=== PATIENT | female | born 1970 | race Two or more races ===

== ENCOUNTER 2019-12-13 13:04 | Outpatient (RCR) | payer MEDICAID, SELFPAY | END 2020-03-06 10:10 | disposition home or self-care (01) | LOC: HO.OT 13:04 | PROVIDERS: Visit Provider Physician Assistant | DX: M65.341 Trigger finger, right ring finger (principal) | CPT/HCPCS: 97110 ==

== ENCOUNTER 2020-02-04 11:30 | Outpatient (REF) | payer MEDICAID, SELFPAY ==
--- NOTE | 2020-02-04 11:30 | XR_ITS ---
EXAMINATION: XR HAND, RIGHT CLINICAL INFORMATION: Pain COMPARISON: Previous exam April 2014 TECHNIQUE: PA, lateral, and oblique views of the right hand. FINDINGS: The bones and soft tissues are normal. No fracture. Alignment is anatomic. Joint spaces are maintained. No erosions or soft tissue calcifications. XR/XR hand RT min 3V IMPRESSION: Normal right hand.
== END 2020-02-04 11:31 | disposition home or self-care (01) ==
LOC: HO.HOSX 11:30
PROVIDERS: PCP Family Medicine; Referring Provider Family Medicine; Visit Provider Physician Assistant
DX: M79.641 Pain in right hand (principal); M65.341 Trigger finger, right ring finger
CPT/HCPCS: 73130; 99212

== ENCOUNTER 2020-05-21 12:06 | Outpatient (REF) | payer MEDICAID, SELFPAY ==
--- NOTE | ~2020-05-21 | XR_ITS ---
EXAMINATION: XR THORACOLUMBAR SPINE CLINICAL INFORMATION: Dorsal pain COMPARISON: Chest radiographs 08/04/2017. CT abdomen and pelvis noncontrast 12/01/2019 TECHNIQUE: Frontal and 2 lateral views of the thoracic spine are obtained for 3 views. FINDINGS: There are 12 rib-bearing thoracic vertebrae with normal thoracic kyphosis. Again, there is levocurvature thoracic spine at level of a T10 butterfly vertebrae similar to CT 2020. There are bridging right lateral osteophytes at this level and lesser anterior bridging osteophytes. There is no interval new thoracic vertebral compression or spondylolisthesis. No destructive process or paraspinal mass. 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
--- NOTE | ~2020-05-21 | XR_ITS ---
EXAMINATION: XR LUMBOSACRAL SPINE CLINICAL INFORMATION: Pain COMPARISON: Thoracic spine 05/21/2020, CT abdomen and pelvis noncontrast 12/01/2019 TECHNIQUE: Three views of the lumbosacral spine. FINDINGS: There is normal lumbar segmentation with 5 nonrib-bearing lumbar vertebrae of normal height and normal lumbar lordosis. There is mild borderline dextrocurvature rotatory curvature upper lumbar spine. There is no lumbar vertebral compression, spondylolisthesis, destructive process, or focal disc narrowing. The SI joints and visualized sacrum are unremarkable. XR/XR lumbar spine 2-3V IMPRESSION: 1. Mild dextrocurvature upper lumbar spine. Normal lumbar lordosis. 2. No lumbar vertebral compression, spondylolisthesis, or disc narrowing.
== END 2020-05-21 12:07 | disposition home or self-care (01) ==
LOC: HO.XRAY 12:06
PROVIDERS: PCP Family Medicine; Visit Provider General Practice
DX: M54.9 Dorsalgia, unspecified (principal)
CPT/HCPCS: 72070; 72100

== ENCOUNTER → 2020-05-29 10:44 | Outpatient (BNVA) | payer MEDICAID, SELFPAY | PROVIDERS: PCP Family Medicine; Visit Provider Physician Assistant | DX: M65.30 Trigger finger, unspecified finger (principal) | CPT/HCPCS: 99212 ==

== ENCOUNTER 2020-06-22 10:31 | Emergency (ER) | payer MEDICAID, SELFPAY ==
[2020-06-22 11:22] VITALS: BP 124/70; PULSE 101; RESP 18; TEMP 37.2; O2SAT 98; BMI 35.6
[2020-06-22] MEDS: Ibuprofen 600 MG TABLET PO (14:29)
[2020-06-22] MEDS: traMADoL HCL 50 MG TABLET PO (14:29)
--- NOTE | 2020-06-22 14:31 | ED_ITS ---
HPI - General Adult General Chief complaint: Upper Respiratory Symptoms Stated complaint: dental pain Time Seen by Provider: 06/22/20 13:40 Source: patient Mode of arrival: ambulatory Limitations: no limitations History of Present Illness HPI narrative: 50 y/o female with history of HTN, HLD, DM, GERD, anxiety/depre ssion presenting with 3 days of right sided lower dental pain associated with sore throat, painful eating, ear pain and subjective fevers at home. She has not been to a dentist in a long time. She states it hurts to chew and open her jaw all the way. She reports the pain in her ear and head is worse when she lays down or bends over. She denies facial swelling or neck pain. No difficulty swallowing but admits to difficulty chewing. MD complaint: dental pain Onset (ago): day(s) (3) Location: head and face Radiation: other (to ear and head) Severity: severe Severity scale (1-10): 8 Quality: aching, sharp and constant Pain Consistency: constant Relieving factors: medication Exacerbating factors: other (bending down) Associated symptoms: fever/chills, headaches and loss of appetite Treatments prior to arrival: none Related Data Home Medications Medication Instructions Recorded Confirmed amlodipine 2.5 mg tablet 2.5 mg PO DAILY 02/04/20 aspirin 325 mg tablet 325 mg PO DAILY 02/04/20 baclofen 5 mg tablet 5 mg PO BEDTIME 02/04/20 buspirone 5 mg tablet 5 mg PO BID 02/04/20 diphenhydramine HCl 25 mg capsule 25 mg PO BEDTIME 02/04/20 gabapentin 300 mg capsule 300 mg PO BEDTIME 02/04/20 insulin lispro 100 unit/mL 5.5 unit SUBCUT BEDTIME 02/04/20 subcutaneous half-unit pen omeprazole 20 mg capsule,delayed 20 mg PO DAILY 02/04/20 release pravastatin 10 mg tablet 10 mg PO BEDTIME 02/04/20 Previous Rx's Medication Instructions Recorded ibuprofen 800 mg tablet 800 mg PO Q8H PRN 30 Days #90 tab 02/04/20 clindamycin HCl 300 mg PO Q6H #28 cap 06/22/20 ibuprofen 600 mg PO Q8H PRN #20 tab 06/22/20 tramadol 50 mg PO Q8H PRN #6 tab 06/22/20 Allergies Allergy/AdvReac Type Severity Reaction Status Date / Time enalapril [ENALAPRIL] Allergy Unknown UNK Verified 02/04/20 11:14 hydrochlorothiazide Allergy Unknown UNK Verified 02/04/20 11:14 [HYDROCHLOROTHIAZIDE] lisinopril [LISINOPRIL] Allergy Unknown HIVES,THROAT Verified 02/04/20 11:14 SWELLING metoprolol [METOPROLOL] Allergy Unknown UNK Verified 02/04/20 11:14 metronidazole [METRONIDAZOLE] Allergy Unknown UNK Verified 02/04/20 11:14 Enalapril Maleate Allergy Unknown hives Uncoded 10/31/19 00:00 Hydrochlorothiazide Allergy Unknown palpitation Uncoded 10/31/19 00:00 Metoprolol Succinate Allergy Unknown tacycardia Uncoded 10/31/19 00:00 Oxycodone HCl Allergy Unknown vomiting Uncoded 10/31/19 00:00 Review of Systems Review of Systems: Constitutional: + Fever, +Chills ENT/Mouth: + sore throat, No Rhinorrhea, No Swallowing Difficulty, +Dental pain Eyes: No Eye Pain, No Swelling, No Redness Cardiovascular: No Chest Pain, No SOB Respiratory: No Cough, No Sputum Gastrointestinal: No Nausea, No Vomiting, No Diarrhea, No abdominal Pain Musculoskeletal: No joint pain, No Myalgias Heme/Lymph: No Lymphadenopathy PMFSH Past Medical History Attestation statement: The following information was validated with the patient. Medical History Anxiety Depression Diabetes GERD (gastroesophageal reflux disease) HTN (hypertension) Hyperlipidemia Surgical History History of hand surgery Social History Social History Alcohol intake: never Smoking Status: Never smoker Advance Directives: No Current occupational status: unemployed Current occupation: right handed Physical Exam Vital Signs: Vital Signs: Last Vital Signs Temp 98.7 F 06/22/20 15:25 Pulse 74 06/22/20 15:25 Resp 16 06/22/20 15:25 BP 157/79 H 06/22/20 15:25 Pulse Ox 97 06/22/20 15:25 Body Mass Index 35.6 Const: General: cooperative and tired appearing Nutritional Appearance: overweight Orientation/consciousness: patient oriented x3 Limitations: no limitations HENMT: Head: Yes normal to inspection, Yes normocephalic and Yes atraumatic Ears: hearing grossly normal bilaterally, TM normal on the right and TM abnormal bulging on the left and with fluid behind the TM on the left General nose exam: Normal external nose present Face and sinus: Yes Facial tenderness on exam of face and sinuses (at right lower mandible, no erythema, edema or flutance. ) Mouth: lip normal, tongue normal, Normal salivary glands and ducts present, moist mucous membranes and restricted motion Teeth and gingiva: abnormal tooth and associated gingiva lower right third molar tender, with associated gingival edema and with associated gingival fluctuance Teeth image: 1. tenderness, edema, erythema, mild flutuance however patient not cooperative with complete examination due to pain Throat: Yes uvula midline and Yes abnormal tonsil (mild edema and erythema) Eyes: General: appearance normal, both eyes and all related structures Neck: Neck: Yes normal visual inspection, Yes no lymphadenopathy, Yes trachea midline and Yes supple Chest: Chest palpation & inspection: normal inspection of the chest Resp: Effort & Inspection: normal respiratory effort and able to speak in complete sentences Skin: General skin exam: no rashes or lesions noted Neuro: General: patient oriented x3 Extrem: General: Yes normal to inspection Psych: Appearance: grossly normal Course Course Course Narrative: 50 y/o female presenting with right lower dental pain radiating to right ear and head. Exam is consistent with early dental abscess. Declining complete examination and declining offer of possible drainge. No evidence of infection into the neck. No trismus. She would like antibiotics and pain medications until she can call a dentist tomorrow. Given her sore throat and fevers at home will get COVID swab. Reevaluation(s) Reevaluation #1: COVID negative. Will d/c with Clindamycin, NSAID and a few tramadol for severe pain. Stable for d/c. Critical Care Time Critical Care Time Critical Care Time: No Discharge Plan Discharge Clinical Impression: Dental infection Patient Disposition: Home, Self-Care Instructions: Dental Abscess (ED) Additional Instructions: Your COVID test is NEGATIVE today. Your exam is consistent with a dental infection. You are being started on antibiotics and pain medications for this. Follow up with your dentist tomorrow. If you have worsening pain, new facial swelling with inability to eat or drink come back to the ER for further evaluation. Prescriptions: New clindamycin HCl 300 mg capsule 300 mg PO Q6H Qty: 28 RF: 0 ibuprofen 600 mg tablet 600 mg PO Q8H PRN (Reason: pain) Qty: 20 RF: 0 tramadol 50 mg tablet 50 mg PO Q8H PRN (Reason: pain) Qty: 6 RF: 0 No Action ibuprofen 800 mg tablet 800 mg PO Q8H PRN (Reason: pain) 30 Days Qty: 90 RF: 3 Stand Alone Forms: Dental Emergency Numbers
[2020-06-22 15:25] VITALS: BP 157/79; PULSE 74; RESP 16; TEMP 37.1; O2SAT 97
[2020-06-22 15:54] LABS: COVID-19 Test Negative (Negative); IDNOW Serial# 9DD0AD1C
== END 2020-06-22 16:36 | disposition home or self-care (01) ==
PROVIDERS: Physician Assistant; Emergency Provider Emergency Medicine Emergency Medical Services; PCP Family Medicine
DX: K04.7 Periapical abscess without sinus (principal); K08.89 Other specified disorders of teeth and supporting structures; Z20.822 Contact with and (suspected) exposure to COVID-19; J02.9 Acute pharyngitis, unspecified; R50.9 Fever, unspecified; I10 Essential (primary) hypertension; E11.9 Type 2 diabetes mellitus without complications; E78.5 Hyperlipidemia, unspecified; K21.9 Gastro-esophageal reflux disease without esophagitis; Z79.82 Long term (current) use of aspirin; Z79.4 Long term (current) use of insulin; Z79.02 Long term (current) use of antithrombotics/antiplatelets; Z79.899 Other long term (current) drug therapy
CPT/HCPCS: 36415; 87635; 99283

== ENCOUNTER → 2020-06-25 14:18 | Outpatient (BNVA) | payer MEDICAID, SELFPAY | PROVIDERS: Visit Provider Orthopaedic Surgery | DX: R20.0 Anesthesia of skin (principal); R20.2 Paresthesia of skin; M79.641 Pain in right hand; M65.341 Trigger finger, right ring finger | CPT/HCPCS: 99202 ==

== ENCOUNTER → 2020-07-28 13:44 | Outpatient (BNVA) | payer MEDICAID, SELFPAY | PROVIDERS: Visit Provider Orthopaedic Surgery | DX: R20.0 Anesthesia of skin (principal); R20.2 Paresthesia of skin; M65.341 Trigger finger, right ring finger; M79.641 Pain in right hand | CPT/HCPCS: 20550; 99212; J1100 ==

== ENCOUNTER 2020-08-19 19:08 | Emergency (ER) | payer MEDICAID, SELFPAY ==
--- NOTE | 2020-08-19 | ECG_ITS ---
Test Reason : PALPATATIONS Blood Pressure : / mmHG Vent. Rate : 080 BPM Atrial Rate : 080 BPM P-R Int : 140 ms QRS Dur : 088 ms QT Int : 406 ms P-R-T Axes : 009 -22 033 degrees QTc Int : 468 ms Poor data quality Sinus rhythm with occasional Premature ventricular complexes Minimal voltage criteria for LVH, may be normal variant Anteroseptal infarct (cited on or before 24-MAR-2015) ST & T wave abnormality, consider lateral ischemia Abnormal ECG When compared with ECG of 09-MAY-2019 08:58, Premature ventricular complexes are now Present Questionable change in initial forces of Septal leads ST now depressed in Anterior leads Referred By: Generic ED Physician Electronically Signed By:ZION CRAIG MD
[2020-08-19 19:17] VITALS: BP 136/92; PULSE 84; RESP 20; TEMP 36.6; O2SAT 98; BMI 35.2
[2020-08-19 20:00] VITALS: BP 140/73; PULSE 78; RESP 12; O2SAT 99
[2020-08-19 22:00] VITALS: BP 140/73; PULSE 79; RESP 14; O2SAT 99
[2020-08-19 22:19] LABS: Basophils Percent Auto 0.4 % (0-2); Eosinophils Absolute Auto 0.9 X10*3/uL (0.0-0.4); Eosinophils Percent Auto 12.2 % (0-4); Hematocrit 37.2 % (37-47); Hemoglobin 12.1 g/dl (12.0-16.0); Imm Gran Abs Auto 0.02 X10*3/uL (0.00-0.03); Imm Gran Pct Auto 0.3 % (0.0-0.4); Lymphocytes Absolute Auto 3.1 X10*3/uL (1.2-4.9); Lymphocytes Percent Auto 41.2 % (20-40); MANUAL DIFF FLAG NO; Mean Corpuscular HGB Conc 32.5 g/dl (31.0-35.0); Mean Corpuscular Hemoglobin 27.8 pg (27.0-33.0); Mean Corpuscular Volume 85.5 fL (80-98); Monocytes Absolute Auto 0.6 X10*3/uL (0.1-1.2); Monocytes Percent Auto 7.5 % (2-11); Neutrophils Absolute Auto 2.9 X10*3/uL (2.0-8.3); Neutrophils Percent Auto 38.4 % (45-73); Platelet Count 212 X10*3/uL (160-400); Red Blood Count 4.35 X10*6/uL (4.20-5.50); White Blood Count 7.6 X10*3/uL (4.8-10.8)
--- NOTE | 2020-08-19 22:19 | ED_ITS ---
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 Otherwise, patient denies any recent travel, shortness of breath, sore throat, cough and No recent history of long car rides or plane trips, hemoptysis, estrogen supplementation, personal history of cancer, recent surgery or bed bound state, calf pain or calf swelling. Related Data Home Medications Medication Instructions Recorded Confirmed amlodipine 2.5 mg tablet 2.5 mg PO DAILY 02/04/20 aspirin 325 mg tablet 325 mg PO DAILY 02/04/20 baclofen 5 mg tablet 5 mg PO BEDTIME 02/04/20 buspirone 5 mg tablet 5 mg PO BID 02/04/20 diphenhydramine HCl 25 mg capsule 25 mg PO BEDTIME 02/04/20 gabapentin 300 mg capsule 300 mg PO BEDTIME 02/04/20 insulin lispro 100 unit/mL 5.5 unit SUBCUT BEDTIME 02/04/20 subcutaneous half-unit pen omeprazole 20 mg capsule,delayed 20 mg PO DAILY 02/04/20 release pravastatin 10 mg tablet 10 mg PO BEDTIME 02/04/20 Previous Rx's Medication Instructions Recorded ibuprofen 800 mg tablet 800 mg PO Q8H PRN 30 Days #90 tab 02/04/20 clindamycin HCl 300 mg PO Q6H #28 cap 06/22/20 ibuprofen 600 mg PO Q8H PRN #20 tab 06/22/20 tramadol 50 mg PO Q8H PRN #6 tab 06/22/20 Allergies Allergy/AdvReac Type Severity Reaction Status Date / Time enalapril [ENALAPRIL] Allergy Unknown UNK Verified 06/25/20 14:25 hydrochlorothiazide Allergy Unknown UNK Verified 06/25/20 14:25 [HYDROCHLOROTHIAZIDE] lisinopril [LISINOPRIL] Allergy Unknown HIVES,THROAT Verified 06/25/20 14:25 SWELLING metoprolol [METOPROLOL] Allergy Unknown UNK Verified 06/25/20 14:25 metronidazole [METRONIDAZOLE] Allergy Unknown UNK Verified 06/25/20 14:25 Enalapril Maleate Allergy Unknown hives Uncoded 10/31/19 00:00 Hydrochlorothiazide Allergy Unknown palpitation Uncoded 10/31/19 00:00 Metoprolol Succinate Allergy Unknown tacycardia Uncoded 10/31/19 00:00 Oxycodone HCl Allergy Unknown vomiting Uncoded 10/31/19 00:00 Review of Systems Review of Systems: Pertinent positives and negatives as stated in HPI and 10 point review of systems is otherwise negative. [facility] Past Medical History Source: nursing notes reviewed Medical History Anxiety Depression Diabetes GERD (gastroesophageal reflux disease) HTN (hypertension) Hyperlipidemia Surgical History History of hand surgery Social History Social History Alcohol intake: never Patient Tobacco Use Status: Never used Tobacco Use of substances other than those prescribed or required for medical reasons: No Advance Directives: No Patient : No Current occupational status: unemployed Current occupation: right handed Physical Exam Vital Signs: Vital Signs: Last Vital Signs Temp 97.9 F 08/19/20 19:17 Pulse 72 08/20/20 00:16 Resp 12 08/20/20 00:16 BP 125/86 08/20/20 00:16 Pulse Ox 98 08/20/20 00:16 Body Mass Index 35.2 VITAL SIGNS: Reviewed. GENERAL: Well developed, well nourished, in no acute distress. HEAD: Normocephalic/atraumatic EYES: PERRLA, EOMI OROPHARYNX: no oral lesions noted, posterior pharynx clear NECK: Supple, no adenopathy LUNGS: Normal breath sounds. No adventitious sounds or accessory muscle use. SpO2<98> CARDIOVASCULAR: Regular rate and rhythm without noted murmurs, no JVD or lower extremity edema. ABDOMEN: Soft, non-tender, non-distended with bowel sounds. SKIN: Inspection of the skin reveals no rashes, ulcerations, jaundice, pallor, or petechiae. NEUROLOGIC: Alert and oriented x 4. Strength and sensation to light touch were grossly intact x 4. Course Course Course Narrative: This is a 50-year-old female with history and clinical presentation suggestive possible dehydration and will dispo based on workup. Review of all investigations are negative for acute findings to better explain patient's palpitations. All results were discussed with her bedside she was discharged home in stable condition. MDM - Arrhythmia/Palpitations Lab Data Result diagrams: 08/19/20 22:14 08/19/20 22:14 Labs: Lab Results 08/19/20 08/19/20 08/19/20 Range/Units 22:14 22:14 22:14 WBC 7.6 (4.8-10.8) X10*3/uL RBC 4.35 (4.20-5.50) X10*6/uL Hgb 12.1 (12.0-16.0) g/dl Hct 37.2 (37-47) % MCV 85.5 (80-98) fL MCH 27.8 (27.0-33.0) pg MCHC 32.5 (31.0-35.0) g/dl RDW 18.0 H (11.0-16.0) % Plt Count 212 (160-400) X10*3/uL MPV 11.0 (9.4-12.3) fL Immature Gran % (Auto) 0.3 (0.0-0.4) % Neut % (Auto) 38.4 L (45-73) % Lymph % (Auto) 41.2 H (20-40) % Kay % (Auto) 7.5 (2-11) % Eos % (Auto) 12.2 H (0-4) % Baso % (Auto) 0.4 (0-2) % Lymph # (Auto) 3.1 (1.2-4.9) X10*3/uL Kay # (Auto) 0.6 (0.1-1.2) X10*3/uL Eos # (Auto) 0.9 H (0.0-0.4) X10*3/uL Baso # (Auto) 0.0 (0.0-0.2) X10*3/uL Abs Immat Gran (auto) 0.02 (0.00-0.03) X10*3/uL Absolute Neuts (auto) 2.9 (2.0-8.3) X10*3/uL Absolute Nucleated RBC 0.000 (0.0-0.012) X10*3/uL Nucleated RBC % (auto) 0.0 (0.0-0.2) /100WBC Sodium 139 (135-145) mmol/L Potassium 4.2 (3.3-5.1) mmol/L Chloride 104 (96-108) mmol/L Carbon Dioxide 30 H (22-29) mmol/L Anion Gap 9 L (12-20) BUN 10 (9-16) mg/dL Creatinine 0.77 (0.5-1.4) mg/dL Estim Creat Clear Calc 82.7 Estimated GFR > 60 Random Glucose 117 H (60-115) mg/dL Calcium 9.7 (8.4-10.2) mg/dL Total Bilirubin < 0.2 (0.0-1.0) mg/dL AST 23 (5-31) U/L ALT 19 (0-31) U/L Alkaline Phosphatase 57 (39-117) U/L Troponin I High Sens < 3.5 (<3.5-17.0) ng/L Total Protein 7.4 (6.5-8.0) g/dL Albumin 4.1 (3.5-5.0) g/dL Urine Color Urine Appearance Urine pH (5.0-8.0) Ur Specific [place] (1.005-1.025) Urine Protein (NEG-TRACE) MG/DL Urine Glucose (UA) (NEG) MG/DL Urine Ketones (NEG) MG/DL Urine Blood (NEG) Urine Nitrite (NEG) Ur Leukocyte Esterase (NEG) Urine Test (NEGATIVE) 08/20/20 08/20/20 Range/Units 00:03 00:03 WBC (4.8-10.8) X10*3/uL RBC (4.20-5.50) X10*6/uL Hgb (12.0-16.0) g/dl Hct (37-47) % MCV (80-98) fL MCH (27.0-33.0) pg MCHC (31.0-35.0) g/dl RDW (11.0-16.0) % Plt Count (160-400) X10*3/uL MPV (9.4-12.3) fL Immature Gran % (Auto) (0.0-0.4) % Neut % (Auto) (45-73) % Lymph % (Auto) (20-40) % Kay % (Auto) (2-11) % Eos % (Auto) (0-4) % Baso % (Auto) (0-2) % Lymph # (Auto) (1.2-4.9) X10*3/uL Kay # (Auto) (0.1-1.2) X10*3/uL Eos # (Auto) (0.0-0.4) X10*3/uL Baso # (Auto) (0.0-0.2) X10*3/uL Abs Immat Gran (auto) (0.00-0.03) X10*3/uL Absolute Neuts (auto) (2.0-8.3) X10*3/uL Absolute Nucleated RBC (0.0-0.012) X10*3/uL Nucleated RBC % (auto) (0.0-0.2) /100WBC Sodium (135-145) mmol/L Potassium (3.3-5.1) mmol/L Chloride (96-108) mmol/L Carbon Dioxide (22-29) mmol/L Anion Gap (12-20) BUN (9-16) mg/dL Creatinine (0.5-1.4) mg/dL Estim Creat Clear Calc Estimated GFR Random Glucose (60-115) mg/dL Calcium (8.4-10.2) mg/dL Total Bilirubin (0.0-1.0) mg/dL AST (5-31) U/L ALT (0-31) U/L Alkaline Phosphatase (39-117) U/L Troponin I High Sens (<3.5-17.0) ng/L Total Protein (6.5-8.0) g/dL Albumin (3.5-5.0) g/dL Urine Color COLORLESS Urine Appearance CLEAR Urine pH 7.5 (5.0-8.0) Ur Specific [place] 1.010 (1.005-1.025) Urine Protein NEG (NEG-TRACE) MG/DL Urine Glucose (UA) NEG (NEG) MG/DL Urine Ketones NEG (NEG) MG/DL Urine Blood NEG (NEG) Urine Nitrite NEG (NEG) Ur Leukocyte Esterase NEG (NEG) Urine Test NEGATIVE (NEGATIVE) ECG Data Attestation: I personally reviewed and interpreted this ECG as follows: Prior ECG tracings: available for review (05/09/2019 no acute changes on comparison) Interpretation: Sinus rhythm with occasional PVCs, HR -80, no evidence of acute ischemia, NV/QRS/QTC are within normal limits. Discharge Plan Discharge Clinical Impression: Heart palpitations, Dizziness Patient Disposition: Home, Self-Care Instructions: Heart Palpitations (ED), Lightheadedness (ED) Additional Instructions: 1. Reanude todos los medicamentos caseros seg?n lo prescrito. 2. Latia un seguimiento con camarillo proveedor de atenci?n primaria por la ma?ailyn para yuridia reevaluaci?n. Incrementa la hidrataci?n de fluidos especialmente con agua. Regrese a la genesis de emergencias si los s?ntomas empeoran. Prescriptions: No Action clindamycin HCl 300 mg capsule 300 mg PO Q6H Qty: 28 RF: 0 ibuprofen 600 mg tablet 600 mg PO Q8H PRN (Reason: pain) Qty: 20 RF: 0 tramadol 50 mg tablet 50 mg PO Q8H PRN (Reason: pain) Qty: 6 RF: 0 ibuprofen 800 mg tablet 800 mg PO Q8H PRN (Reason: pain) 30 Days Qty: 90 RF: 3 Referrals: Angelique Grace DO [Primary Care Provider] - 2 days ( re-evaluation after negative workup in the ER.) Interventions: ED Discharge Assessment Last Done: 08/20/20 00:30 Print Language: Argentine
[2020-08-19 23:01] LABS: Troponin-I High Sensitivity < 3.5 ng/L (<3.5-17.0)
[2020-08-20] VITALS: BP 116/81; PULSE 69; RESP 14; O2SAT 99
[2020-08-20 00:13] LABS: Glucose Urine UA NEG (NEG); Leukocyte Esterase Urine NEG (NEG); Nitrite Urine NEG (NEG); PH 7.5 (5.0-8.0); Urine Blood NEG (NEG); Urine Ketones NEG (NEG); Urine Pregnancy NEGATIVE (NEGATIVE); Urine Protein NEG (NEG-TRACE)
[2020-08-20 00:14] LABS: Appearance Urine CLEAR; Color Urine COLORLESS; UPreg QC Valid YES
[2020-08-20 00:16] VITALS: BP 125/86; PULSE 72; RESP 12; O2SAT 98
[2020-08-20] MEDS: Ketorolac Tromethamine 15 MG/ML VIAL IM (00:48)
[2020-08-20] MEDS: Acetaminophen 325 MG TABLET 975 MG PO (00:49)
[2020-08-20 00:51] LABS: Alanine Aminotransferase 19 U/L (0-31); Albumin Level 4.1 g/dL (3.5-5.0); Alkaline Phosphatase 57 U/L (39-117); Anion Gap 9 (12-20); Aspartate Amino Transferase 23 U/L (5-31); Bilirubin Total < 0.2 mg/dL (0.0-1.0); Blood Urea Nitrogen 10 mg/dL (9-16); Calcium 9.7 mg/dL (8.4-10.2); Carbon Dioxide 30 mmol/L (22-29); Chloride 104 mmol/L (96-108); Creatinine Clr Calc Pharmacy 82.7; Estimated Glomerular Filt Rate > 60; Glucose Random 117 mg/dL (60-115); Potassium 4.2 mmol/L (3.3-5.1); Sodium 139 mmol/L (135-145); Total Protein 7.4 g/dL (6.5-8.0)
== END 2020-08-20 00:30 | disposition home or self-care (01) ==
PROVIDERS: Emergency Provider Student in an Organized Health Care Education/Training Program; PCP Family Medicine
DX: R00.2 Palpitations (principal); R42 Dizziness and giddiness; I10 Essential (primary) hypertension; E11.9 Type 2 diabetes mellitus without complications
CPT/HCPCS: 36415; 80053; 81003; 81025; 84484; 85025; 93005; 96372; 99284; 99285; J1885

== ENCOUNTER 2020-09-26 23:14 | Emergency (ER) | payer MEDICAID, SELFPAY ==
[2020-09-26 23:43] VITALS: BP 140/53; PULSE 81; RESP 18; TEMP 36.7; O2SAT 98; BMI 29.0
[2020-09-27 01:58] VITALS: BP 132/69; PULSE 75; RESP 17; O2SAT 97
[2020-09-27 02:13] LABS: Glucose Urine UA NEG (NEG); Leukocyte Esterase Urine NEG (NEG); Nitrite Urine NEG (NEG); Urine Blood 3+ (NEG); Urine Ketones NEG (NEG); Urine Protein TRACE MG/DL (NEG-TRACE)
[2020-09-27 02:34] LABS: Appearance Urine HAZY; Color Urine PINK
[2020-09-27 02:35] LABS: UPreg QC Valid YES; Urine Pregnancy NEGATIVE (NEGATIVE)
[2020-09-27 02:56] LABS: Mucus Urine TRACE /LPF; Squamous Epithelial Cell Urine TRACE /LPF; WBC Urine 0-2 /HPF (0-4)
--- NOTE | 2020-09-27 03:27 | ED_ITS ---
HPI - General Chief complaint: Vaginal Bleeding Stated complaint: vaginal bleeding since 09/08 Time Seen by Provider: 09/27/20 01:44 Source: patient and hourly associate Mode of arrival: ambulatory History of Present Illness HPI Narrative: 50-year-old female presents with complaints that she did not have a period for 4 months and then started having vaginal bleeding again 09/08 and states that this continued until 09/20. It then subsided, but then over the past 5 days has restarted prompting patient to use 5-6 pads within the 24 hour. Patient otherwise denies any fever, chills, diarrhea, shortness of breath or chest pain but states she has had some cramping with the bleeding. Related Data Home Medications Medication Instructions Recorded Confirmed amlodipine 2.5 mg tablet 2.5 mg PO DAILY 02/04/20 aspirin 325 mg tablet 325 mg PO DAILY 02/04/20 baclofen 5 mg tablet 5 mg PO BEDTIME 02/04/20 buspirone 5 mg tablet 5 mg PO BID 02/04/20 diphenhydramine HCl 25 mg capsule 25 mg PO BEDTIME 02/04/20 gabapentin 300 mg capsule 300 mg PO BEDTIME 02/04/20 insulin lispro 100 unit/mL 5.5 unit SUBCUT BEDTIME 02/04/20 subcutaneous half-unit pen omeprazole 20 mg capsule,delayed 20 mg PO DAILY 02/04/20 release pravastatin 10 mg tablet 10 mg PO BEDTIME 02/04/20 Previous Rx's Medication Instructions Recorded ibuprofen 800 mg tablet 800 mg PO Q8H PRN 30 Days #90 tab 02/04/20 clindamycin HCl 300 mg PO Q6H #28 cap 06/22/20 ibuprofen 600 mg PO Q8H PRN #20 tab 06/22/20 tramadol 50 mg PO Q8H PRN #6 tab 06/22/20 Allergies Allergy/AdvReac Type Severity Reaction Status Date / Time enalapril [ENALAPRIL] Allergy Unknown UNK Verified 06/25/20 14:25 hydrochlorothiazide Allergy Unknown UNK Verified 06/25/20 14:25 [HYDROCHLOROTHIAZIDE] lisinopril [LISINOPRIL] Allergy Unknown HIVES,THROAT Verified 06/25/20 14:25 SWELLING metoprolol [METOPROLOL] Allergy Unknown UNK Verified 06/25/20 14:25 metronidazole [METRONIDAZOLE] Allergy Unknown UNK Verified 06/25/20 14:25 Enalapril Maleate Allergy Unknown hives Uncoded 10/31/19 00:00 Hydrochlorothiazide Allergy Unknown palpitation Uncoded 10/31/19 00:00 Metoprolol Succinate Allergy Unknown tacycardia Uncoded 10/31/19 00:00 Oxycodone HCl Allergy Unknown vomiting Uncoded 10/31/19 00:00 Review of Systems Review of Systems: Pertinent positives and negatives as stated in HPI 10 point review of systems is otherwise negative. [facility] Past Medical History Source: nursing notes reviewed Medical History Anxiety Depression Diabetes GERD (gastroesophageal reflux disease) HTN (hypertension) Hyperlipidemia Surgical History History of hand surgery Social History Social History Alcohol intake: never Patient Tobacco Use Status: Never used Tobacco Advance Directives: No Advance Directives Information Provided: No Patient : No Current occupational status: unemployed Current occupation: right handed Physical Exam Vital Signs: Vital Signs: Last Vital Signs Temp 98.5 F 09/27/20 04:00 Pulse 74 09/27/20 04:00 Resp 15 09/27/20 04:00 BP 128/75 09/27/20 04:00 Pulse Ox 98 09/27/20 04:00 Body Mass Index 29.0 VITAL SIGNS: Reviewed. GENERAL: Well developed, well nourished, in no acute distress. HEAD: Normocephalic/atraumatic EYES: PERRLA, EOMI EARS: Ext canals without abnormality NOSE: Nares patent bilateral OROPHARYNX: no oral lesions noted, posterior pharynx clear LUNGS: Normal breath sounds. No adventitious sounds or accessory muscle use. SpO2<98> CARDIOVASCULAR: Regular rate and rhythm without noted murmurs ABDOMEN: Soft, non-tender, non-distended with bowel sounds. SKIN: Inspection of the skin reveals no rashes,pallor NEUROLOGIC: Alert and oriented x 4. Course Course Course Narrative: 50-year-old female with history and clinical presentation consistent with perimenopausal bleeding which was discussed with the patient. Low clinical suspicion for ectopic or more concerning etiologies for the vaginal bleeding. Review of all investigations negative for evidence , UTI, and on review laboratory results are without acute findings when compared to prior. Patient was informed of all results and discharged home in stable condition. MDM - OB/Uterine Contractions Lab Data Result diagrams: 09/27/20 04:09 09/27/20 04:09 Labs: Lab Results 09/27/20 09/27/20 09/27/20 Range/Units 02:02 02:02 04:09 WBC 6.9 (4.8-10.8) X10*3/uL RBC 3.84 L (4.20-5.50) X10*6/uL Hgb 11.1 L (12.0-16.0) g/dl Hct 33.5 L (37-47) % MCV 87.2 (80-98) fL MCH 28.9 (27.0-33.0) pg MCHC 33.1 (31.0-35.0) g/dl RDW 15.9 (11.0-16.0) % Plt Count 224 (160-400) X10*3/uL MPV 10.3 (9.4-12.3) fL Immature Gran % (Auto) 0.3 (0.0-0.4) % Neut % (Auto) 37.9 L (45-73) % Lymph % (Auto) 43.0 H (20-40) % [place] % (Auto) 6.2 (2-11) % Eos % (Auto) 12.3 H (0-4) % Baso % (Auto) 0.3 (0-2) % Lymph # (Auto) 3.0 (1.2-4.9) X10*3/uL [place] # (Auto) 0.4 (0.1-1.2) X10*3/uL Eos # (Auto) 0.9 H (0.0-0.4) X10*3/uL Baso # (Auto) 0.0 (0.0-0.2) X10*3/uL Abs Immat Gran (auto) 0.02 (0.00-0.03) X10*3/uL Absolute Neuts (auto) 2.6 (2.0-8.3) X10*3/uL Absolute Nucleated RBC 0.000 (0.0-0.012) X10*3/uL Nucleated RBC % (auto) 0.0 (0.0-0.2) /100WBC Sodium (135-145) mmol/L Potassium (3.3-5.1) mmol/L Chloride (96-108) mmol/L Carbon Dioxide (22-29) mmol/L Anion Gap (12-20) BUN (9-16) mg/dL Creatinine (0.5-1.4) mg/dL Estim Creat Clear Calc Estimated GFR Random Glucose (60-115) mg/dL Calcium (8.4-10.2) mg/dL Total Bilirubin (0.0-1.0) mg/dL AST (5-31) U/L ALT (0-31) U/L Alkaline Phosphatase (39-117) U/L Total Protein (6.5-8.0) g/dL Albumin (3.5-5.0) g/dL Urine Color PINK Urine Appearance HAZY Urine pH 6.0 (5.0-8.0) Ur Specific [place] 1.020 (1.005-1.025) Urine Protein TRACE (NEG-TRACE) MG/DL Urine Glucose (UA) NEG (NEG) MG/DL Urine Ketones NEG (NEG) MG/DL Urine Blood 3+ H (NEG) Urine Nitrite NEG (NEG) Ur Leukocyte Esterase NEG (NEG) Urine RBC 76-150 H (0) /HPF Urine WBC 0-2 (0-4) /HPF Ur Squamous Epith Cells TRACE /LPF Urine Bacteria NONE /LPF Urine Mucus TRACE /LPF Urine Test NEGATIVE (NEGATIVE) 09/27/20 Range/Units 04:09 WBC (4.8-10.8) X10*3/uL RBC (4.20-5.50) X10*6/uL Hgb (12.0-16.0) g/dl Hct (37-47) % MCV (80-98) fL MCH (27.0-33.0) pg MCHC (31.0-35.0) g/dl RDW (11.0-16.0) % Plt Count (160-400) X10*3/uL MPV (9.4-12.3) fL Immature Gran % (Auto) (0.0-0.4) % Neut % (Auto) (45-73) % Lymph % (Auto) (20-40) % [place] % (Auto) (2-11) % Eos % (Auto) (0-4) % Baso % (Auto) (0-2) % Lymph # (Auto) (1.2-4.9) X10*3/uL [place] # (Auto) (0.1-1.2) X10*3/uL Eos # (Auto) (0.0-0.4) X10*3/uL Baso # (Auto) (0.0-0.2) X10*3/uL Abs Immat Gran (auto) (0.00-0.03) X10*3/uL Absolute Neuts (auto) (2.0-8.3) X10*3/uL Absolute Nucleated RBC (0.0-0.012) X10*3/uL Nucleated RBC % (auto) (0.0-0.2) /100WBC Sodium 136 (135-145) mmol/L Potassium 4.2 (3.3-5.1) mmol/L Chloride 103 (96-108) mmol/L Carbon Dioxide 24 (22-29) mmol/L Anion Gap 13 (12-20) BUN 20 H D (9-16) mg/dL Creatinine 0.79 (0.5-1.4) mg/dL Estim Creat Clear Calc 91.7 Estimated GFR > 60 Random Glucose 138 H (60-115) mg/dL Calcium 8.7 D (8.4-10.2) mg/dL Total Bilirubin 0.2 (0.0-1.0) mg/dL AST 17 (5-31) U/L ALT 14 (0-31) U/L Alkaline Phosphatase 47 (39-117) U/L Total Protein 6.7 (6.5-8.0) g/dL Albumin 3.6 (3.5-5.0) g/dL Urine Color Urine Appearance Urine pH (5.0-8.0) Ur Specific [place] (1.005-1.025) Urine Protein (NEG-TRACE) MG/DL Urine Glucose (UA) (NEG) MG/DL Urine Ketones (NEG) MG/DL Urine Blood (NEG) Urine Nitrite (NEG) Ur Leukocyte Esterase (NEG) Urine RBC (0) /HPF Urine WBC (0-4) /HPF Ur Squamous Epith Cells /LPF Urine Bacteria /LPF Urine Mucus /LPF Urine Test (NEGATIVE) Discharge Plan Discharge Clinical Impression: Abnormal perimenopausal bleeding Patient Disposition: Home, Self-Care Instructions: Dysmenorrhea (ED) Additional Instructions: 1. Reanude todos los medicamentos caseros seg?n lo recetado. 2. Latia un seguimiento con camarillo proveedor de atenci?n primaria llamando al consultorio el lunes por la ma?ailyn para programar yuridia tunde para la reevaluaci?n y el manejo ambulatorio adicional. Regrese a la genesis de emergencias por cualquier empeoramiento awa de los s?ntomas. Prescriptions: No Action clindamycin HCl 300 mg capsule 300 mg PO Q6H Qty: 28 RF: 0 ibuprofen 600 mg tablet 600 mg PO Q8H PRN (Reason: pain) Qty: 20 RF: 0 tramadol 50 mg tablet 50 mg PO Q8H PRN (Reason: pain) Qty: 6 RF: 0 ibuprofen 800 mg tablet 800 mg PO Q8H PRN (Reason: pain) 30 Days Qty: 90 RF: 3 Referrals: Angelique Grace DO [Primary Care Provider] - 2 days Print Language: Yi
[2020-09-27 04:00] VITALS: BP 128/75; PULSE 74; RESP 15; TEMP 36.9; O2SAT 98
[2020-09-27] MEDS: Ibuprofen 400 MG TABLET PO (04:03)
[2020-09-27] MEDS: Acetaminophen 325 MG TABLET 650 MG PO (04:04)
[2020-09-27] MEDS: Acetaminophen 325 MG TABLET PO (04:04)
[2020-09-27 04:21] LABS: Basophils Percent Auto 0.3 % (0-2); Eosinophils Absolute Auto 0.9 X10*3/uL (0.0-0.4); Eosinophils Percent Auto 12.3 % (0-4); Hematocrit 33.5 % (37-47); Hemoglobin 11.1 g/dl (12.0-16.0); Imm Gran Abs Auto 0.02 X10*3/uL (0.00-0.03); Imm Gran Pct Auto 0.3 % (0.0-0.4); MANUAL DIFF FLAG NO; Mean Corpuscular HGB Conc 33.1 g/dl (31.0-35.0); Mean Corpuscular Hemoglobin 28.9 pg (27.0-33.0); Mean Corpuscular Volume 87.2 fL (80-98); Mean Platelet Volume 10.3 fL (9.4-12.3); Monocytes Absolute Auto 0.4 X10*3/uL (0.1-1.2); Monocytes Percent Auto 6.2 % (2-11); Neutrophils Absolute Auto 2.6 X10*3/uL (2.0-8.3); Neutrophils Percent Auto 37.9 % (45-73); Platelet Count 224 X10*3/uL (160-400); Red Blood Count 3.84 X10*6/uL (4.20-5.50); Red Cell Distribution Width 15.9 % (11.0-16.0); White Blood Count 6.9 X10*3/uL (4.8-10.8)
[2020-09-27 04:40] LABS: Alanine Aminotransferase 14 U/L (0-31); Albumin Level 3.6 g/dL (3.5-5.0); Alkaline Phosphatase 47 U/L (39-117); Anion Gap 13 (12-20); Aspartate Amino Transferase 17 U/L (5-31); Bilirubin Total 0.2 mg/dL (0.0-1.0); Blood Urea Nitrogen 20 mg/dL (9-16); Calcium 8.7 mg/dL (8.4-10.2); Carbon Dioxide 24 mmol/L (22-29); Chloride 103 mmol/L (96-108); Creatinine Clr Calc Pharmacy 91.7; Estimated Glomerular Filt Rate > 60; Glucose Random 138 mg/dL (60-115); Potassium 4.2 mmol/L (3.3-5.1); Sodium 136 mmol/L (135-145); Total Protein 6.7 g/dL (6.5-8.0)
== END 2020-09-27 06:26 | disposition home or self-care (01) ==
PROVIDERS: Emergency Provider Student in an Organized Health Care Education/Training Program; PCP Family Medicine
DX: N92.4 Excessive bleeding in the premenopausal period (principal); E11.9 Type 2 diabetes mellitus without complications; I10 Essential (primary) hypertension
CPT/HCPCS: 36415; 80053; 81001; 81025; 85025; 99283; 99285

== ENCOUNTER 2020-09-28 01:12 | Emergency (ER) | payer MEDICAID, SELFPAY ==
--- NOTE | ~2020-09-28 | US_ITS ---
EXAMINATION: ULTRASOUND PELVIS CLINICAL INFORMATION: Vaginal bleeding COMPARISON: CT 12/01/2019 TECHNIQUE: Sonographic evaluation of the pelvis was performed transabdominally and transvaginally. FINDINGS: The uterus measures 9.3 cm in length and 4.0 x 5.3 cm in AP and transverse dimensions. The endometrial stripe measures 0.5 cm in thickness. Nabothian cyst is noted in the cervix. Nonspecific tiny echogenic focus also noted in the cervix. The right ovary measures 3.5 x 2.3 x 2.3 cm. There is a right ovarian cyst measuring up to 2.7 cm. The left ovary measures 1.7 x 0.8 x 1.3 cm and appears unremarkable. Small amount of pelvic free fluid is noted. US/US pelvic and transvaginal IMPRESSION: Right ovarian cyst measuring up to 2.7 cm. Nonspecific echogenic focus in the cervix, which may represent a calcification. Endometrial stripe appears unremarkable.
--- NOTE | ~2020-09-28 | CT_ITS ---
EXAMINATION: CT ABDOMEN AND PELVIS WITHOUT CONTRAST CLINICAL INFORMATION: Flank pain COMPARISON: 12/01/2019 TECHNIQUE: Multidetector volumetric imaging was performed from the superior aspect of the liver through the pubic symphysis. Sagittal and coronal reformatted images were obtained on the technologist's workstation. This CT examination was performed using dose optimization techniques as appropriate, variously including the following: *Automated exposure control *Adjustment of mA and/or kV according to patient size (this includes techniques or standardized protocols for targeted exams where dose is matched to indication/reason for exam; i.e. extremities or head) *Use of iterative reconstruction technique DLP: 684 mGy-cm FINDINGS: LUNG BASES: The visualized lung bases are unremarkable. LIVER, GALLBLADDER, AND BILIARY TREE: The liver is normal in size, shape, and attenuation. No focal hepatic lesion or biliary ductal dilatation is present. The gallbladder is unremarkable with no evidence of radiopaque gallstones, gallbladder wall thickening, or obvious pericholecystic inflammatory changes. PANCREAS: Unremarkable. SPLEEN: Unremarkable. ADRENAL GLANDS: Unremarkable. KIDNEYS AND URETERS: The kidneys are normal in size, shape, and attenuation. No hydronephrosis, hydroureter, or calculi seen. No perinephric stranding. BLADDER: Unremarkable. GASTROINTESTINAL TRACT: The small and large bowel are unremarkable. The appendix is unremarkable. No free fluid or free air is seen. ABDOMINAL WALL: No significant hernia is appreciated. LYMPH NODES: Normal. VASCULAR: Unremarkable. PELVIC VISCERA: Unremarkable. 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 CT/CT abdomen pelvis wo con IMPRESSION: No acute findings identified in the abdomen/pelvis.
[2020-09-28 01:59] VITALS: BP 143/49; PULSE 75; RESP 16; TEMP 36.7; O2SAT 95; BMI 35.9
--- NOTE | 2020-09-28 03:56 | ED.GENADULT ---
HPI - General Adult General Chief complaint: General Medical Stated complaint: multiple complaints Time Seen by Provider: 09/28/20 03:51 Source: patient Mode of arrival: ambulatory History of Present Illness HPI narrative: 50-year-old female who has returned with continued complaints of vaginal bleeding and is known to be on her menstrual. However, patient describes experiencing dizziness, headache as well as continued lower abdominal discomfort and lower back pain. Related Data Home Medications Medication Instructions Recorded Confirmed amlodipine 2.5 mg tablet 2.5 mg PO DAILY 02/04/20 aspirin 325 mg tablet 325 mg PO DAILY 02/04/20 baclofen 5 mg tablet 5 mg PO BEDTIME 02/04/20 buspirone 5 mg tablet 5 mg PO BID 02/04/20 diphenhydramine HCl 25 mg capsule 25 mg PO BEDTIME 02/04/20 gabapentin 300 mg capsule 300 mg PO BEDTIME 02/04/20 insulin lispro 100 unit/mL 5.5 unit SUBCUT BEDTIME 02/04/20 subcutaneous half-unit pen omeprazole 20 mg capsule,delayed 20 mg PO DAILY 02/04/20 release pravastatin 10 mg tablet 10 mg PO BEDTIME 02/04/20 Previous Rx's Medication Instructions Recorded ibuprofen 800 mg tablet 800 mg PO Q8H PRN 30 Days #90 tab 02/04/20 clindamycin HCl 300 mg PO Q6H #28 cap 06/22/20 ibuprofen 600 mg PO Q8H PRN #20 tab 06/22/20 tramadol 50 mg PO Q8H PRN #6 tab 06/22/20 Allergies Allergy/AdvReac Type Severity Reaction Status Date / Time enalapril [ENALAPRIL] Allergy Unknown UNK Verified 09/28/20 01:59 hydrochlorothiazide Allergy Unknown UNK Verified 09/28/20 01:59 [HYDROCHLOROTHIAZIDE] lisinopril [LISINOPRIL] Allergy Unknown HIVES,THROAT Verified 09/28/20 01:59 SWELLING metoprolol [METOPROLOL] Allergy Unknown UNK Verified 09/28/20 01:59 metronidazole [METRONIDAZOLE] Allergy Unknown UNK Verified 09/28/20 01:59 Enalapril Maleate Allergy Unknown hives Uncoded 10/31/19 00:00 Hydrochlorothiazide Allergy Unknown palpitation Uncoded 10/31/19 00:00 Metoprolol Succinate Allergy Unknown tacycardia Uncoded 10/31/19 00:00 Oxycodone HCl Allergy Unknown vomiting Uncoded 10/31/19 00:00 Review of Systems Review of Systems: Pertinent positives and negatives as stated in HPI and 10 point review of systems is otherwise negative. [facility] Past Medical History Source: nursing notes reviewed Medical History Anxiety Depression Diabetes GERD (gastroesophageal reflux disease) HTN (hypertension) Hyperlipidemia Surgical History History of hand surgery Social History Social History Alcohol intake: never Patient Tobacco Use Status: Never used Tobacco Advance Directives: No Advance Directives Information Provided: No Current occupational status: unemployed Current occupation: right handed Physical Exam Vital Signs: Vital Signs: Last Vital Signs Temp 98.1 F 09/28/20 01:59 Pulse 75 09/28/20 01:59 Resp 16 09/28/20 05:34 BP 143/49 H 09/28/20 01:59 Pulse Ox 95 09/28/20 01:59 Body Mass Index 35.9 VITAL SIGNS: Reviewed. GENERAL: Well developed, well nourished, in no acute distress. HEAD: Normocephalic/atraumatic EYES: PERRLA, EOMI, no pallor EARS: Ext canals without abnormality OROPHARYNX: no oral lesions noted, posterior pharynx clear LUNGS: Normal breath sounds. No adventitious sounds or accessory muscle use. SpO2<95> CARDIOVASCULAR: Regular rate and rhythm without noted murmurs ABDOMEN: Soft, mild tenderness on palpation over suprapubic, non-distended with bowel sounds. SKIN: Inspection of the skin reveals no rashes or pallor NEUROLOGIC: Alert and oriented x 4. Strength and sensation to light touch were grossly intact x 4. Course Course Course Narrative: 50-year-old female with history and clinical presentation suggestive of menstrual cramps. Review of all investigations negative for acute findings. All results discussed with her at bedside and she was instructed to follow-up with her primary care provider 1st thing in the morning for re-evaluation. Medical Decision Making Lab Data Result diagrams: 09/28/20 04:19 09/28/20 04:19 Labs: Lab Results 07/18/21 07/18/21 07/18/21 Range/Units 04:19 04:19 04:23 WBC 7.3 (4.8-10.8) X10*3/uL RBC 3.83 L (4.20-5.50) X10*6/uL Hgb 11.0 L (12.0-16.0) g/dl Hct 33.3 L (37-47) % MCV 86.9 (80-98) fL MCH 28.7 (27.0-33.0) pg MCHC 33.0 (31.0-35.0) g/dl RDW 15.8 (11.0-16.0) % Plt Count 226 (160-400) X10*3/uL MPV 10.3 (9.4-12.3) fL Immature Gran % (Auto) 0.1 (0.0-0.4) % Neut % (Auto) 40.1 L (45-73) % Lymph % (Auto) 40.7 H (20-40) % [place] % (Auto) 6.7 (2-11) % Eos % (Auto) 12.0 H (0-4) % Baso % (Auto) 0.4 (0-2) % Lymph # (Auto) 3.0 (1.2-4.9) X10*3/uL [place] # (Auto) 0.5 (0.1-1.2) X10*3/uL Eos # (Auto) 0.9 H (0.0-0.4) X10*3/uL Baso # (Auto) 0.0 (0.0-0.2) X10*3/uL Abs Immat Gran (auto) 0.01 (0.00-0.03) X10*3/uL Absolute Neuts (auto) 2.9 (2.0-8.3) X10*3/uL Absolute Nucleated RBC 0.000 (0.0-0.012) X10*3/uL Nucleated RBC % (auto) 0.0 (0.0-0.2) /100WBC Sodium 138 (135-145) mmol/L Potassium 4.3 (3.3-5.1) mmol/L Chloride 103 (96-108) mmol/L Carbon Dioxide 27 (22-29) mmol/L Anion Gap 12 (12-20) BUN 16 (9-16) mg/dL Creatinine 0.78 (0.5-1.4) mg/dL Estim Creat Clear Calc 86.0 Estimated GFR > 60 Random Glucose 172 H (60-115) mg/dL Calcium 9.0 (8.4-10.2) mg/dL Urine Color YELLOW Urine Appearance HAZY Urine pH 6.0 (5.0-8.0) Ur Specific [place] >= 1.030 H (1.005-1.025) Urine Protein NEG (NEG-TRACE) MG/DL Urine Glucose (UA) NEG (NEG) MG/DL Urine Ketones NEG (NEG) MG/DL Urine Blood 3+ H (NEG) Urine Nitrite NEG (NEG) Ur Leukocyte Esterase NEG (NEG) Urine RBC 76-150 H (0) /HPF Urine WBC 0-2 (0-4) /HPF Ur Squamous Epith Cells TRACE /LPF Calcium Oxalate Crystal 1+ /LPF Urine Bacteria NONE /LPF Urine Mucus TRACE /LPF Discharge Plan Discharge Clinical Impression: Abnormal perimenopausal bleeding Patient Disposition: Home, Self-Care Instructions: Dysmenorrhea (ED) Additional Instructions: 1. Reanude todos los medicamentos caseros seg?n lo recetado. 2. Tylenol 1000 mg, por v?a oral, cada 6 horas seg?n sea necesario para controlar el dolor. No exceda los 4000 mg en 24 horas. 3. Ibuprofeno 400 mg, por v?a oral con leche o alimentos, cada 6 horas seg?n sea necesario para controlar el dolor. 4. Recomiende el uso de yuridia almohadilla t?rmica para un alivio adicional de los s?ntomas. 5. Latia un seguimiento con camarillo proveedor de atenci?n primaria llamando al consultorio el lunes por la ma?ailyn para programar yuridia tunde para la reevaluaci?n y el manejo ambulatorio adicional. Regrese a la genesis de emergencias por cualquier empeoramiento awa de los s?ntomas. Prescriptions: No Action clindamycin HCl 300 mg capsule 300 mg PO Q6H Qty: 28 RF: 0 ibuprofen 600 mg tablet 600 mg PO Q8H PRN (Reason: pain) Qty: 20 RF: 0 tramadol 50 mg tablet 50 mg PO Q8H PRN (Reason: pain) Qty: 6 RF: 0 ibuprofen 800 mg tablet 800 mg PO Q8H PRN (Reason: pain) 30 Days Qty: 90 RF: 3 Referrals: Angelique Grace DO [Primary Care Provider] - 2 days (Please see patient for Sayda-menopausal bleeding)
[2020-09-28] MEDS: 0.9 % Sodium Chloride 1,000 ML 999 ML IV (04:25)
[2020-09-28 04:30] LABS: Basophils Percent Auto 0.4 % (0-2); Eosinophils Absolute Auto 0.9 X10*3/uL (0.0-0.4); Hematocrit 33.3 % (37-47); Imm Gran Abs Auto 0.01 X10*3/uL (0.00-0.03); Imm Gran Pct Auto 0.1 % (0.0-0.4); Lymphocytes Percent Auto 40.7 % (20-40); MANUAL DIFF FLAG NO; Mean Corpuscular Hemoglobin 28.7 pg (27.0-33.0); Mean Corpuscular Volume 86.9 fL (80-98); Mean Platelet Volume 10.3 fL (9.4-12.3); Monocytes Absolute Auto 0.5 X10*3/uL (0.1-1.2); Monocytes Percent Auto 6.7 % (2-11); Neutrophils Absolute Auto 2.9 X10*3/uL (2.0-8.3); Neutrophils Percent Auto 40.1 % (45-73); Platelet Count 226 X10*3/uL (160-400); Red Blood Count 3.83 X10*6/uL (4.20-5.50); Red Cell Distribution Width 15.8 % (11.0-16.0); White Blood Count 7.3 X10*3/uL (4.8-10.8)
[2020-09-28 04:31] LABS: Glucose Urine UA NEG (NEG); Leukocyte Esterase Urine NEG (NEG); Nitrite Urine NEG (NEG); Specific Gravity - Urine >= 1.030 (1.005-1.025); Urine Blood 3+ (NEG); Urine Ketones NEG (NEG); Urine Protein NEG (NEG-TRACE)
[2020-09-28 04:35] LABS: Appearance Urine HAZY; Color Urine YELLOW
[2020-09-28] MEDS: Ketorolac Tromethamine 15 MG/ML VIAL IVPUSH (04:37)
[2020-09-28 04:47] LABS: Calcium Oxalate Crystals Urine 1+ /LPF; Mucus Urine TRACE /LPF; Squamous Epithelial Cell Urine TRACE /LPF; WBC Urine 0-2 /HPF (0-4)
[2020-09-28 05:03] LABS: Anion Gap 12 (12-20); Blood Urea Nitrogen 16 mg/dL (9-16); Carbon Dioxide 27 mmol/L (22-29); Chloride 103 mmol/L (96-108); Estimated Glomerular Filt Rate > 60; Glucose Random 172 mg/dL (60-115); Potassium 4.3 mmol/L (3.3-5.1); Sodium 138 mmol/L (135-145)
[2020-09-28 05:34] VITALS: RESP 16
[2020-09-28 07:02] VITALS: BP 124/71; PULSE 75; RESP 16; O2SAT 997
--- NOTE | 2020-09-28 07:05 | PC.NURSE ---
Peripheral iv removed and pressure bandage applied. discharge instructions given to pt who verbalized understanding and denies any questions
== END 2020-09-28 07:20 | disposition home or self-care (01) ==
PROVIDERS: Emergency Provider Student in an Organized Health Care Education/Training Program; PCP Family Medicine
DX: N92.4 Excessive bleeding in the premenopausal period (principal); R10.2 Pelvic and perineal pain; R25.2 Cramp and spasm; R51.9 Headache, unspecified; E11.9 Type 2 diabetes mellitus without complications; Z79.899 Other long term (current) drug therapy; Z79.4 Long term (current) use of insulin
CPT/HCPCS: 36415; 74176; 76830; 76856; 80048; 81001; 85025; 96365; 96375; 99284; J1885

== ENCOUNTER 2021-01-27 14:11 | Outpatient (REF) | payer MEDICAID, SELFPAY ==
--- NOTE | ~2021-01-27 | MM_ITS ---
EXAMINATION: MM SCREENING DIGITAL BREAST TOMOSYNTHESIS, BILATERAL CLINICAL INFORMATION: Screening. Asymptomatic. The lifetime risk of breast cancer based on the Tyrer-Cuzick Model is 9%. COMPARISON: Mammography: 08/22/2018, 07/28/2017, 07/20/2016 TECHNIQUE: Digital breast tomosynthesis is performed in both the craniocaudal and mediolateral oblique views along with computer-aided detection (CAD). Synthesized 2D images are generated from the tomosynthesis. FINDINGS: There are scattered areas of fibroglandular density (ACR BI-RADS breast composition Category b). There are no significant masses, abnormal calcifications, or other abnormalities. MM/MM tomosynthesis screening BI IMPRESSION: No mammographic evidence of malignancy. ASSESSMENT: BI-RADS 1: Negative RECOMMENDATION: Routine annual mammography screening. This patient's information was entered into a reminder system with a target due date for their next mammogram.
== END 2021-01-27 14:12 | disposition home or self-care (01) ==
LOC: HO.MAMMO 14:11
PROVIDERS: Visit Provider Family Medicine
DX: Z12.31 Encounter for screening mammogram for malignant neoplasm of breast (principal)
CPT/HCPCS: 77063; 77067

== ENCOUNTER 2021-02-17 12:22 | Outpatient (REF) | payer MEDICAID, SELFPAY ==
--- NOTE | ~2021-02-17 | CT_ITS ---
EXAMINATION: CT ABDOMEN AND PELVIS WITHOUT CONTRAST CLINICAL INFORMATION: Flank pain COMPARISON: Previous CT of the abdomen and pelvis most recent September 2020 TECHNIQUE: Multidetector volumetric imaging was performed from the superior aspect of the liver through the pubic symphysis. Sagittal and coronal reformatted images were obtained on the technologist's workstation. This CT examination was performed using dose optimization techniques as appropriate, variously including the following: *Automated exposure control *Adjustment of mA and/or kV according to patient size (this includes techniques or standardized protocols for targeted exams where dose is matched to indication/reason for exam; i.e. extremities or head) *Use of iterative reconstruction technique DLP: 555 mGy-cm FINDINGS: LUNG BASES: The visualized lung bases are unremarkable. LIVER, GALLBLADDER, AND BILIARY TREE: The liver is normal in size, shape, and attenuation. No focal hepatic lesion or biliary ductal dilatation is present. The gallbladder is unremarkable with no evidence of radiopaque gallstones, gallbladder wall thickening, or obvious pericholecystic inflammatory changes. PANCREAS: Unremarkable. SPLEEN: Unremarkable. ADRENAL GLANDS: Unremarkable. KIDNEYS AND URETERS: The kidneys are normal in size, shape, and attenuation. No hydronephrosis, hydroureter, or calculi seen. No perinephric stranding. BLADDER: Unremarkable. GASTROINTESTINAL TRACT: There is stool throughout the colon questionable for constipation. The small and large bowel are otherwise unremarkable. The appendix is unremarkable. The stomach is unremarkable. ABDOMINAL WALL: No significant hernia is appreciated. LYMPH NODES: Normal. VASCULAR: Unremarkable. PELVIC VISCERA: Unremarkable. OSSEOUS STRUCTURES: There are mild degenerative changes of the spine and scoliosis. 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 CT/CT abdomen pelvis wo con IMPRESSION: No renal stone or hydronephrosis seen. Stool throughout the colon questionable for constipation. Fleischner guidelines were followed.
== END 2021-02-17 12:23 | disposition home or self-care (01) ==
LOC: HO.CT 12:22
PROVIDERS: PCP Family Medicine; Visit Provider Emergency Medicine
DX: M54.41 Lumbago with sciatica, right side (principal)
CPT/HCPCS: 74176

== ENCOUNTER 2021-10-16 22:09 | Emergency (ER) | payer MEDICAID, SELFPAY ==
--- NOTE | ~2021-10-16 | XR_ITS ---
EXAMINATION: XR KNEE, RIGHT CLINICAL INFORMATION: Right knee pain COMPARISON: None TECHNIQUE: Four views of the right knee. FINDINGS: Bones and soft tissues are normal. No fracture or joint effusion. Alignment is anatomic. Joint spaces are well maintained. No abnormal soft tissue calcification. XR/XR knee RT 2V IMPRESSION: Normal right knee.
[2021-10-16 22:20] VITALS: BP 135/68; PULSE 74; RESP 18; TEMP 36.6; O2SAT 97; BMI 34.5
[2021-10-16 23:51] VITALS: BP 129/69; PULSE 67; RESP 16; TEMP 36.7; O2SAT 98
--- NOTE | 2021-10-17 00:55 | ED_ITS ---
HPI - General Adult General Chief complaint: General Medical Stated complaint: Leg pain Time Seen by Provider: 10/17/21 00:32 Source: patient Mode of arrival: ambulatory History of Present Illness HPI narrative: 51-year-old female presents with 2 weeks right knee discomfort that is worse on going up stairs and she notes a clicking noise but denies any redness, fevers, chills and denies any traumatic injury. Related Data Home Medications Medication Instructions Recorded Confirmed amlodipine 2.5 mg tablet 2.5 mg PO DAILY 02/04/20 aspirin 325 mg tablet 325 mg PO DAILY 02/04/20 baclofen 5 mg tablet 5 mg PO BEDTIME 02/04/20 buspirone 5 mg tablet 5 mg PO BID 02/04/20 diphenhydramine HCl 25 mg capsule 25 mg PO BEDTIME 02/04/20 (Benadryl) gabapentin 300 mg capsule 300 mg PO BEDTIME 02/04/20 insulin lispro 100 unit/mL 5.5 unit subcut BEDTIME 02/04/20 subcutaneous half-unit pen (Humalog Stevan CristinenavarroNazario (U-100)) omeprazole 20 mg capsule,delayed 20 mg PO DAILY 02/04/20 release pravastatin 10 mg tablet 10 mg PO BEDTIME 02/04/20 Previous Rx's Medication Instructions Recorded ibuprofen 800 mg tablet 800 mg PO Q8H PRN pain 30 days #90 02/04/20 tabs clindamycin HCl 300 mg capsule 300 mg PO Q6H #28 caps 06/22/20 ibuprofen 600 mg tablet 600 mg PO Q8H PRN pain #20 tabs 06/22/20 tramadol 50 mg tablet 50 mg PO Q8H PRN pain #6 tabs 06/22/20 ketorolac 10 mg tablet 10 mg PO Q6H PRN pain 5 days #20 10/17/21 tabs Allergies Allergy/AdvReac Type Severity Reaction Status Date / Time enalapril [ENALAPRIL] Allergy Unknown UNK Verified 10/16/21 22:20 hydrochlorothiazide Allergy Unknown UNK Verified 10/16/21 22:20 [HYDROCHLOROTHIAZIDE] lisinopril [LISINOPRIL] Allergy Unknown HIVES,THROAT Verified 10/16/21 22:20 SWELLING metoprolol [METOPROLOL] Allergy Unknown UNK Verified 10/16/21 22:20 metronidazole [METRONIDAZOLE] Allergy Unknown UNK Verified 10/16/21 22:20 Enalapril Maleate Allergy Unknown hives Uncoded 10/31/19 00:00 Hydrochlorothiazide Allergy Unknown palpitation Uncoded 10/31/19 00:00 Metoprolol Succinate Allergy Unknown tacycardia Uncoded 10/31/19 00:00 Oxycodone HCl Allergy Unknown vomiting Uncoded 10/31/19 00:00 Review of Systems Review of Systems: Pertinent positives and negatives as stated in HPI 10 point review of systems is otherwise negative. [facility] Past Medical History Source: nursing notes reviewed Medical History Anxiety Depression Diabetes GERD (gastroesophageal reflux disease) HTN (hypertension) Hyperlipidemia Surgical History History of hand surgery Social History Social History Alcohol intake: never Patient Tobacco Use Status: Never used Tobacco Advance Directives: No Current occupational status: unemployed Current occupation: right handed Physical Exam ED Vital Signs: Vital Signs - 24 hr 10/16/21 22:20 10/16/21 23:51 Temperature 97.8 F 98.0 F Pulse Rate 74 67 Respiratory Rate 18 16 Blood Pressure 135/68 129/69 Pulse Oximetry 97 98 Oxygen Delivery Method Room Air Room Air BMI result Body Mass Index 34.5 VITAL SIGNS: Reviewed. GENERAL: Well developed, well nourished, in no acute distress. HEAD: Normocephalic/atraumatic EYES: PERRLA, EOMI EARS: Ext canals without abnormality OROPHARYNX: no oral lesions noted, posterior pharynx clear LUNGS: Normal breath sounds. No adventitious sounds or accessory muscle use. SpO2<97> CARDIOVASCULAR: Regular rate and rhythm without noted murmurs ABDOMEN: Soft, non-tender, non-distended with bowel sounds. MUSCULOSKELETAL: No tenderness, deformities, or effusions noted on gross inspection. EXTREMITIES: No cyanosis, clubbing or edema; RIGHT KNEE: There is no erythema, induration, edema, DP/PT are palpable with warm foot and capillary refill less than 3 seconds and intact sensation.. SKIN: Inspection of the skin reveals no rashes NEUROLOGIC: Alert and oriented x 4. Strength and sensation to light touch were grossly intact x 4. Course Course Course Narrative: 51-year-old female with history and clinical presentation consistent with tendinitis. On review of x-ray there were no acute findings and patient rece ived combination analgesics as well as an Willian wrap and she was strongly encouraged to follow-up with primary care provider and pursue physical therapy. Discharge Plan Discharge Clinical Impression: Pain, joint, knee, right Patient Disposition: Home, Self-Care Instructions: Knee Pain (ED), Arthralgia (ED), Cold Compress or Soak (ED) Additional Instructions: 1. Tylenol 1000 mg, orally, every 6 hours as needed for pain control. Do not exceed 4000 mg within 24 hours. 2. Lidocaine patch apply to area of maximal tenderness as directed on the outside packaging. 3. Recommend that you keep the Willian wrap in place well up walking around. 4. Discussed with your primary care provider physical therapy. Return to the ER for worsening symptoms. Prescriptions: New ketorolac 10 mg tablet 10 mg PO Q6H PRN (Reason: pain) 5 Days Qty: 20 0RF Rx Instructions: 1. Patient received Toradol in the emergency room. 2. Please instruct patient to stop all other NSAIDs. No Action clindamycin HCl 300 mg capsule 300 mg PO Q6H Qty: 28 0RF ibuprofen 600 mg tablet 600 mg PO Q8H PRN (Reason: pain) Qty: 20 0RF tramadol 50 mg tablet 50 mg PO Q8H PRN (Reason: pain) Qty: 6 0RF ibuprofen 800 mg tablet 800 mg PO Q8H PRN (Reason: pain) 30 Days Qty: 90 3RF Referrals: Angelique Grace DO [Primary Care Provider] - Stand Alone Forms: Work/School Release
[2021-10-17] MEDS: Acetaminophen 325 MG TABLET 975 MG PO (01:19)
[2021-10-17] MEDS: Ketorolac Tromethamine 15 MG/ML VIAL IM (01:21)
--- NOTE | 2021-10-17 01:22 | PC.NURSE ---
Administered meds per MAR
--- NOTE | 2021-10-17 01:28 | PC.NURSE ---
Pt is alert and oriented and is able to ambulate without assistance. Discharge instructions were given and explained.
== END 2021-10-17 01:28 | disposition home or self-care (01) ==
PROVIDERS: Emergency Provider Student in an Organized Health Care Education/Training Program; PCP Family Medicine
DX: M25.561 Pain in right knee (principal); Z79.899 Other long term (current) drug therapy
CPT/HCPCS: 73560; 96372; 99284; J1885

== ENCOUNTER → 2021-12-02 11:33 | Outpatient (BNVA) | payer MEDICAID, SELFPAY | PROVIDERS: PCP Family Medicine; Visit Provider Orthopaedic Surgery | DX: M65.342 Trigger finger, left ring finger (principal); E11.9 Type 2 diabetes mellitus without complications; R20.0 Anesthesia of skin | CPT/HCPCS: 99212 ==

== ENCOUNTER 2021-12-11 14:00 | Outpatient (RCR) | payer MEDICAID, SELFPAY | END 2022-01-07 15:05 | disposition home or self-care (01) | LOC: HO.PT 14:00 | PROVIDERS: PCP Family Medicine; Visit Provider Family Medicine | DX: M25.561 Pain in right knee (principal) | CPT/HCPCS: 97035; 97110; 97112; 97140; 97162 ==

== ENCOUNTER 2021-12-14 09:09 | Day surgery (SDC) | payer MEDICAID, SELFPAY ==
[2021-12-08 14:57] VITALS: BMI 34.4
--- NOTE | 2021-12-14 11:20 | P.OP_ITS ---
Operative Note Operative Note Date of Service: 12/14/21 Narrative: Operative Note Preop diagnosis: 1. left ring finger Trigger finger Postop diagnosis: 1. left ring finger Trigger finger Procedure: 1. left ring finger A1 jason release Surgeon: Leslie Freitas MD Anesthesia: local block using 1% lidocaine with epinephrine Findings: No locking or catching after A1 jason release EBL: Less than 5 mL Tourniquet time: None Specimens: None Complications: None Disposition: Brought to recovery room in stable condition Plan: Follow-up for 10-14 days for wound check and suture removal Indications: The patient is 51 years old, with a left ring finger trigger finger that has been unresponsive to nonoperative management. The risks and benefits of operative treatment including but not limited to risk of damage to blood vessels, nerves, tendons, infection, persistent pain, persistent symptoms, recurrence or possible need for additional surgery were discussed with the patient and the patient wishes to proceed with surgery. Procedure: Once consent was obtained a local block was performed in the preop area using a combination of 1% lidocaine with epinephrine. The patient was then brought back to the operating suite and placed on the operative table in supine position. A tourniquet was applied to the proximal aspect of the left upper extremity and the limb was prepped and draped in a standard surgical fashion. Once assured that we had a good block, a 1.5 cm oblique incision was made centered over the A1 jason of the left ring finger . The incision was made through the skin to the subcutaneous tissues using a #15 blade. Careful dissection was made down to the level of the A1 jason using tenotomy scissors, with care being taken to protect the nearby neurovascular structures. A longitudinal incision was made in the A1 jason 1st using a #15 blade, then using tenotomy scissors under direct visualization. The A1 jason was noted to be thickened. Following our A1 jason release, we no longer saw any locking or catching of the digit with flexion and extension. Once satisfied with our A1 jason release the wound was copiously irrigated with normal saline and hemostasis was obtained with a brief period of local pressure. The skin edges were reapproximated with some 5.0 nylon suture material and a sterile dressing was applied. The patient appears to have tolerated the procedure well and with no complica tions. All digits were well vascularized at the conclusion of the case.
--- NOTE | 2021-12-14 11:20 | MHC.SHP ---
Pre-Procedural Eval Section A Date of Service: 12/14/21 The patient is an INPATIENT: No Changes since office visit: No Cold of Flu in the past 2 weeks, No New Medical Problems, No Changes in Medication and No Patient answered all questions The History & Physical has been completed within 30 days and I have reviewed it.: Yes Section B Chief Complaint: Trigger finger, left ring finger Allergies: Allergies Allergy/AdvReac Type Severity Reaction Status Date / Time enalapril [ENALAPRIL] Allergy Unknown UNK Verified 12/14/21 10:16 hydrochlorothiazide Allergy Unknown UNK Verified 12/14/21 10:16 [HYDROCHLOROTHIAZIDE] lisinopril [LISINOPRIL] Allergy Unknown HIVES,THROAT Verified 12/14/21 10:16 SWELLING metoprolol [METOPROLOL] Allergy Unknown UNK Verified 12/14/21 10:16 metronidazole [METRONIDAZOLE] Allergy Unknown UNK Verified 12/14/21 10:16 Oxycodone HCl Allergy Unknown vomiting Uncoded 10/31/19 00:00 Plan I have reviewed the history and physical and performed a pertinent physical examination on my patient. No changes have occurred unless specified.
[2021-12-14 11:26] VITALS: BP 119/58; PULSE 72; RESP 18; TEMP 36.6
[2021-12-14 12:30] VITALS: BP 137/75; PULSE 69; RESP 16; O2SAT 96
== END 2021-12-14 12:31 | disposition home or self-care (01) ==
PROVIDERS: PCP Family Medicine; Visit Provider Orthopaedic Surgery
PROC: (CPT 26055; principal; 2021-12-14 10:30)
DX: M65.342 Trigger finger, left ring finger (principal); R20.0 Anesthesia of skin; I10 Essential (primary) hypertension; E78.5 Hyperlipidemia, unspecified; E11.9 Type 2 diabetes mellitus without complications; K21.9 Gastro-esophageal reflux disease without esophagitis; F32.A Depression, unspecified; F41.1 Generalized anxiety disorder; Z88.8 Allergy status to other drugs, medicaments and biological substances; F17.210 Nicotine dependence, cigarettes, uncomplicated
CPT/HCPCS: 26055; J0171

== ENCOUNTER 2022-01-21 14:22 | Outpatient (REF) | payer MEDICAID, SELFPAY ==
--- NOTE | ~2022-01-21 | CT_ITS ---
CT HEAD WITHOUT CONTRAST CLINICAL INFORMATION: Headache. COMPARISON: None available. TECHNIQUE: Contiguous axial imaging was performed from the skull base to vertex without intravenous administration of contrast. This CT examination was performed using dose optimization techniques as appropriate, variously including the following: *Automated exposure control *Adjustment of mA and/or kV according to patient size (this includes techniques or standardized protocols for targeted exams where dose is matched to indication/reason for exam; i.e. extremities or head) *Use of iterative reconstruction technique FINDINGS: There is no intracranial hemorrhage, hydrocephalus, extra-axial surface collection, midline shift, or other herniation pattern. Moore to white matter differentiation is diffusely maintained without evidence of an evolved acute territorial infarct. The basilar cisterns are preserved. No significant soft tissue abnormality. No acute osseous abnormality. The paranasal sinuses and the mastoid air cells are well aerated. There is sigmoid deviation of the nasal septum. CT/CT head/brain wo IV con IMPRESSION: No acute intracranial abnormality.
== END 2022-01-21 14:23 | disposition home or self-care (01) ==
LOC: HO.CT 14:22
PROVIDERS: PCP Family Medicine; Visit Provider Family Medicine
DX: R51.9 Headache, unspecified (principal)
CPT/HCPCS: 70450

== ENCOUNTER 2022-02-10 15:13 | Outpatient (REF) | payer MEDICAID, SELFPAY ==
--- NOTE | 2022-02-10 10:00 | EMG_ITS ---
Please see scanned EMG / Nerve Conduction Report. MTDD
== END 2022-02-10 15:14 | disposition home or self-care (01) ==
LOC: HO.NEURO 15:13
PROVIDERS: PCP Family Medicine; Visit Provider Orthopaedic Surgery
DX: R20.0 Anesthesia of skin (principal); R20.2 Paresthesia of skin
CPT/HCPCS: 95885; 95913

== ENCOUNTER 2022-02-18 08:02 | Outpatient (REF) | payer MEDICAID, SELFPAY ==
--- NOTE | ~2022-02-18 | US_ITS ---
EXAMINATION: US ABDOMEN COMPLETE CLINICAL INFORMATION: Fatty liver. COMPARISON: CT abdomen and pelvis 02/17/2021. Ultrasound abdomen complete 02/13/2014. TECHNIQUE: Real-time imaging of the abdominal viscera. FINDINGS: PANCREAS: The visualized head and body of the pancreas appears unremarkable. Remainder of the pancreas is obscured by bowel gas. ABDOMINAL AORTA: Mid aorta is obscured by bowel gas. Visualized aorta appears of normal caliber. INFERIOR VENA CAVA: Visualized portions are normal. LIVER: Diffuse increased parenchymal echogenicity. The liver contour is normal. . No focal hepatic lesion. There is no intrahepatic biliary duct dilatation seen. GALLBLADDER: Normal. The gallbladder is physiologically distended without evidence of stones, sludge, polyps, wall thickening or pericholecystic fluid. COMMON BILE DUCT: Normal in caliber measuring 0.3 cm in diameter. RIGHT KIDNEY: Normal. No hydronephrosis. No renal calculi or focal parenchymal lesions. The kidney measures 11.6 cm in maximum dimension. LEFT KIDNEY: Normal. No hydronephrosis. No renal calculi or focal parenchymal lesions. The kidney measures 10.0 cm in maximum dimension. SPLEEN: Normal. The spleen measures 9.2 cm in maximum dimension. FREE FLUID: None. US/US abdomen complete IMPRESSION: There is generalized increase in hepatic echotexture, consistent with fatty infiltration or hepatocellular disease. Please correlate clinically. No focal hepatic mass or intrahepatic biliary duct dilatation is seen. Limited visualization of pancreas.
== END 2022-02-18 08:03 | disposition home or self-care (01) ==
LOC: HO.US 08:02
PROVIDERS: Visit Provider Family Medicine
DX: K76.0 Fatty (change of) liver, not elsewhere classified (principal)
CPT/HCPCS: 76700

== ENCOUNTER → 2022-02-24 09:59 | Outpatient (BNVA) | payer MEDICAID, SELFPAY | PROVIDERS: PCP Family Medicine; Referring Provider Family Medicine; Visit Provider Internal Medicine Cardiovascular Disease | DX: I25.10 Atherosclerotic heart disease of native coronary artery without angina pectoris (principal) | CPT/HCPCS: 93005; 99212 ==

== ENCOUNTER 2022-03-09 13:26 | Outpatient (REF) | payer MEDICAID, SELFPAY ==
--- NOTE | ~2022-03-09 | MM_ITS ---
EXAMINATION: MM SCREENING DIGITAL BREAST TOMOSYNTHESIS, BILATERAL CLINICAL INFORMATION: Screening. Asymptomatic. The lifetime risk of breast cancer based on the Tyrer-Cuzick Model is 6%. COMPARISON: Mammography: January 27, 2021 and July 18, 2015 TECHNIQUE: Digital breast tomosynthesis is performed in both the craniocaudal and mediolateral oblique views along with computer-aided detection (CAD). Synthesized 2D images are generated from the tomosynthesis. FINDINGS: The breasts are heterogeneously dense, which may obscure small masses (ACR BI-RADS breast composition Category c). There are no significant masses, abnormal calcifications, or other abnormalities. MM/MM tomosynthesis screening BI IMPRESSION: No significant changes from prior exam. ASSESSMENT: BI-RADS 1: Negative RECOMMENDATION: Routine annual mammography screening. This patient's information was entered into a reminder system with a target due date for their next mammogram.
== END 2022-03-09 13:27 | disposition home or self-care (01) ==
LOC: HO.MAMMO 13:26
PROVIDERS: Visit Provider Family Medicine
DX: Z12.31 Encounter for screening mammogram for malignant neoplasm of breast (principal)
CPT/HCPCS: 77063; 77067

== ENCOUNTER → 2022-03-22 13:11 | Outpatient (BNVA) | payer MEDICAID, SELFPAY | PROVIDERS: PCP Family Medicine; Visit Provider Internal Medicine | DX: A04.8 Other specified bacterial intestinal infections (principal) | CPT/HCPCS: 99202 ==

== ENCOUNTER 2022-04-02 15:22 | Emergency (ER) | payer MEDICAID, SELFPAY ==
--- NOTE | ~2022-04-02 | XR_ITS ---
EXAMINATION: XR KNEE, RIGHT CLINICAL INFORMATION: Atraumatic pain. Unable to bear weight COMPARISON: 10/16/2021 TECHNIQUE: Four views of the right knee. FINDINGS: No fracture, dislocation, or joint effusion. Normal mineralization and alignment. Joint spaces are maintained. XR/XR knee RT 4V IMPRESSION: No acute osseous abnormality of the right knee.
[2022-04-02 15:24] VITALS: BP 138/87; PULSE 73; RESP 18; TEMP 36.5; O2SAT 98; BMI 34.0
--- NOTE | 2022-04-02 15:26 | ED.GENADULT ---
HPI - General Adult General Chief complaint: Extremity Injury, Lower <Alie Seymour CNP - Last Filed: 04/02/22 15:36> Stated complaint: r knee and back pain <Alie Seymour CNP - Last Filed: 04/02/22 15:36> Time Seen by Provider: 04/02/22 15:39 <Alie Seymour CNP - Last Filed: 04/02/22 15:36> Source: patient and manager gyn <Jennifer Storm NP - Last Filed: 04/02/22 17:18> Mode of arrival: wheelchair <Jennifer Storm NP - Last Filed: 04/02/22 17:18> Limitations: language barrier <Jennifer Storm NP - Last Filed: 04/02/22 17:18> History of Present Illness HPI narrative: 51-year-old female with a history of chronic back pain, anxiety, depression, GERD, DM, HTN presents with right knee pain for 6 months with no known injury or trauma. Patient reports she did physical therapy for the knee but that did not help. She has a follow-up appointment coming up with Orthopedics to discuss this further. She recently was told to hold ibuprofen and she has an upcoming endoscopy. She feels like since stopping the ibuprofen her pain in her knee has felt worse. She has been using a topical cream, Tylenol and a muscle relaxant she does not know the name of with continued pain. She reports pain is worsened with ambulating. No redness, warmth, swelling, numbness, tingling. <Jennifer Storm NP - Last Filed: 04/02/22 17:18> Related Data Home medications: Home Medications Medication Instructions Recorded Confirmed diphenhydramine HCl 25 mg capsule 25 mg PO BEDTIME 02/04/20 03/22/22 (Benadryl) gabapentin 300 mg capsule 300 mg PO BEDTIME 02/04/20 03/22/22 omeprazole 20 mg capsule,delayed 20 mg PO DAILY 02/04/20 03/22/22 release insulin lispro 100 unit/mL 5.5 unit subcut BEDTIME 02/24/22 03/22/22 subcutaneous half-unit pen (Humalog Stevan KwikPen (U-100)) amlodipine 5 mg tablet 7.5 mg PO DAILY 03/22/22 03/22/22 buspirone 7.5 mg tablet 7.5 mg PO BID 03/22/22 03/22/22 cholecalciferol (vitamin D3) 50 50 mcg PO DAILY 03/22/22 03/22/22 mcg (2,000 unit) tablet dapagliflozin 5 mg tablet (Farxiga) 5 mg PO QAM 03/22/22 03/22/22 escitalopram oxalate 5 mg tablet 15 mg PO QAM 03/22/22 03/22/22 ferrous sulfate 325 mg (65 mg 325 mg PO DAILY 03/22/22 03/22/22 iron) tablet,delayed release hydrocortisone 2.5 % topical cream topical QID PRN 03/22/22 03/22/22 with perineal applicator insulin NPH-regular 70-30 U-100 48 unit subcut BID 03/22/22 03/22/22 insulin 100 unit/mL subcutaneous pen (Humulin 70/30 U-100 KwikPen) omega-3 300 mg-dha 120 mg-epa 180 1 cap PO BID 03/22/22 03/22/22 mg-fish oil 1,000 mg capsule pravastatin 40 mg tablet 40 mg PO BEDTIME 03/22/22 03/22/22 pregabalin 100 mg capsule 100 mg PO TID 03/22/22 03/22/22 Previous Rx's Medication Instructions Recorded cyclobenzaprine 10 mg tablet 10 mg PO TID PRN muscle spasm #15 04/02/22 tabs <Alie Seymour CNP - Last Filed: 04/02/22 15:36> Allergies/adverse reactions: Allergies Allergy/AdvReac Type Severity Reaction Status Date / Time enalapril [ENALAPRIL] Allergy Unknown UNK Verified 04/02/22 15:35 hydrochlorothiazide Allergy Unknown UNK Verified 04/02/22 15:35 [HYDROCHLOROTHIAZIDE] lisinopril [LISINOPRIL] Allergy Unknown HIVES,THROAT Verified 04/02/22 15:35 SWELLING metoprolol [METOPROLOL] Allergy Unknown UNK Verified 04/02/22 15:35 metronidazole [METRONIDAZOLE] Allergy Unknown UNK Verified 04/02/22 15:35 Oxycodone HCl Allergy Unknown vomiting Uncoded 03/22/22 13:23 <Alie Seymour CNP - Last Filed: 04/02/22 15:36> Review of Systems Review of Systems: Yes all other systems are reviewed and are negative <Jennifer Storm NP - Last Filed: 04/02/22 17:18> Constitutional: Constitutional: Reports no additional constitutional complaints, Denies body ache(s), Denies chills, Denies fever(s), Denies headache(s) and Denies weakness <Jennifer Storm CALL CENTER COORDINATOR - Last Filed: 04/02/22 17:18> Eyes: Eyes: Reports no additional eye complaints and Denies change in vision <Jennifer Storm CALL CENTER COORDINATOR - Last Filed: 04/02/22 17:18> ENT: Reports system reviewed and no additional complaints, except as documented, Denies dizziness, Denies headache(s), Denies nasal congestion, Denies nasal discharge and Denies neck pain <Jennifer Storm CALL CENTER COORDINATOR - Last Filed: 04/02/22 17:18> Cardiovascular: Cardiovascular: Reports no additional cardiovascular complaints, Denies chest pain, Denies leg edema and Denies dyspnea <Jennifer Storm CALL CENTER COORDINATOR - Last Filed: 04/02/22 17:18> Respiratory: Respiratory: Reports no additional respiratory complaints, Denies cough and Denies dyspnea <Jennifer Storm CALL CENTER COORDINATOR - Last Filed: 04/02/22 17:18> Gastrointestinal: Gastrointestinal: Reports no additional gastrointestinal complaints, Denies abdominal pain, Denies diarrhea, Denies nausea and Denies vomiting <Jennifer Storm CALL CENTER COORDINATOR - Last Filed: 04/02/22 17:18> Genitourinary: Genitourinary: Reports no additional female genitourinary complaints and Denies urinary incontinence <Jennifre Storm CALL CENTER COORDINATOR - Last Filed: 04/02/22 17:18> Musculoskeletal: Musculoskeletal: Reports no additional musculoskeletal complaints, Denies back pain, Reports arthralgias, Denies joint swelling, Denies neck pain, Denies numbness and Denies tingling <Jennifer Storm CALL CENTER COORDINATOR - Last Filed: 04/02/22 17:18> Integumentary/Breasts: Skin/Breast: Reports system reviewed and no additional complaints, except as docu and Denies rash <Jennifer Storm NP - Last Filed: 04/02/22 17:18> Neurologic: Reports system reviewed and no additional complaints, except as documented, Denies dizziness, Denies headache(s), Denies numbness, Denies tingling and Denies weakness <Jennifer Storm NP - Last Filed: 04/02/22 17:18> PMFSH Past Medical History Attestation statement: The following information was validated with the patient. <Jennifer Storm NP - Last Filed: 04/02/22 17:18> Source: old records reviewed and nursing notes reviewed <Jennifer Storm NP - Last Filed: 04/02/22 17:18> Medical History: Medical History Anxiety Depression Diabetes GERD (gastroesophageal reflux disease) HTN (hypertension) Hyperlipidemia <Alie Seymour CNP - Last Filed: 04/02/22 15:36> Surgical History: Surgical History History of hand surgery <Alie Seymour CNP - Last Filed: 04/02/22 15:36> Family History Family History: Family History Maternal Aunt Dialysis patient Hypertension Diabetes Mother Hypertension Diabetes Father Diabetes Hypertension <Alie Seymour CNP - Last Filed: 04/02/22 15:36> Social History Social History: Social History Alcohol intake: never Patient Tobacco Use Status: Current everyday Tobacco user Cigarettes Per Day: 2 Advance Directives: No Advance Directives Information Provided: No Current occupational status: unemployed Current occupation: right handed <Alie Seymour CNP - Last Filed: 04/02/22 15:36> Physical Exam ED Vital Signs: Vital Signs - 24 hr 04/02/22 15:24 04/02/22 16:58 Temperature 97.7 F Pulse Rate 73 87 Respiratory Rate 18 14 Blood Pressure 138/87 127/85 Pulse Oximetry 98 100 Oxygen Delivery Method Room Air Room Air BMI result Body Mass Index 34.0 <Aliejules Seymour PICC NURSE - Last Filed: 04/02/22 15:36> Vital Signs - 24 hr 04/02/22 15:24 04/02/22 16:58 Temperature 97.7 F Pulse Rate 73 87 Respiratory Rate 18 14 Blood Pressure 138/87 127/85 Pulse Oximetry 98 100 Oxygen Delivery Method Room Air Room Air BMI result Body Mass Index 34.0 <Jennifer Storm CALL CENTER COORDINATOR - Last Filed: 04/02/22 17:18> Const General: cooperative, healthy appearing and comfortable <Jennifer Storm CALL CENTER COORDINATOR - Last Filed: 04/02/22 17:18> Orientation/consciousness: patient oriented x3 <Jennifer Storm NP - Last Filed: 04/02/22 17:18> Limitations: no limitations <Jennifer Storm NP - Last Filed: 04/02/22 17:18> HENMT Head: Yes normal to inspection <Jennifer Storm CALL CENTER COORDINATOR - Last Filed: 04/02/22 17:18> Ears: hearing grossly normal bilaterally <Jennifer Storm CALL CENTER COORDINATOR - Last Filed: 04/02/22 17:18> Eyes General: appearance normal, both eyes and all related structures <Jennifer Storm CALL CENTER COORDINATOR - Last Filed: 04/02/22 17:18> Pupils: Equal, round and reactive pupils present <Jennifer Storm NP - Last Filed: 04/02/22 17:18> Neck Neck: Yes normal visual inspection and Yes full ROM <Jennifer Storm CALL CENTER COORDINATOR - Last Filed: 04/02/22 17:18> Chest Chest palpation & inspection: normal inspection of the chest <Jennifer Storm NP - Last Filed: 04/02/22 17:18> Resp Effort & Inspection: normal respiratory effort <Jennifer Storm NP - Last Filed: 04/02/22 17:18> Auscultation: clear to auscultation bilaterally <Jennifer Storm NP - Last Filed: 04/02/22 17:18> Cardio Rate: regular rate <Jennifer Pascucci, CALL CENTER COORDINATOR - Last Filed: 04/02/22 17:18> Rhythm: regular rhythm <Jennifer Solorzanoneo, CALL CENTER COORDINATOR - Last Filed: 04/02/22 17:18> Peripheral pulses: Peripheral pulses 2+ throughout <Jennifer Solorzanoneo, CALL CENTER COORDINATOR - Last Filed: 04/02/22 17:18> GI Inspection: Yes normal to inspection <Jenniferjoo Storm, CALL CENTER COORDINATOR - Last Filed: 04/02/22 17:18> Palpation (GI): Soft to palpation and nontender <Jennifer Timmichelle, CALL CENTER COORDINATOR - Last Filed: 04/02/22 17:18> General: Yes no CVA tenderness <Jennifer Dotty, CALL CENTER COORDINATOR - Last Filed: 04/02/22 17:18> Back/Spine/Pelvis Back: no CVA tenderness <Jennifer Jeanineneo, CALL CENTER COORDINATOR - Last Filed: 04/02/22 17:18> Thoracic/Lumbar Spine: thoracic and lumbar spine normal to inspection <Jennifer Timmichelle, CALL CENTER COORDINATOR - Last Filed: 04/02/22 17:18> Skin General skin exam: no rashes or lesions noted <Jennifer Timmichelle, CALL CENTER COORDINATOR - Last Filed: 04/02/22 17:18> Neuro General: patient oriented x3 and moves all extremities <Jennifer Timmichelle, CALL CENTER COORDINATOR - Last Filed: 04/02/22 17:18> Cranial nerves: Yes Equal, round and reactive pupils present <Jennifer Timmichelle, CALL CENTER COORDINATOR - Last Filed: 04/02/22 17:18> Cognition (Neuro): normal cognition <Jennifer Timmichelle, CALL CENTER COORDINATOR - Last Filed: 04/02/22 17:18> Gait exam (Neuro): Normal gait present <Jenniferjoo Storm, CALL CENTER COORDINATOR - Last Filed: 04/02/22 17:18> Extrem Other: Patient reports pain to the anterior right knee. Patient has no swelling, redness or warmth. Patient is able to flex and extend the knee but does have pain with flexion. No ligamental laxity. Negative anterior drawer test. Palpable DP and PT pulses distally. Normal sensation. <Jennifer Storm, CALL CENTER COORDINATOR - Last Filed: 04/02/22 17:18> General: Yes normal to inspection <Jennifer Storm NP - Last Filed: 04/02/22 17:18> Course Course Course Narrative: This is an RME: Additional HPI, ROS, PE not included below will be deferred to primary provider. Patient is a 51-year-old female who presents to the emergency department with complaints of right knee pain for 6 months. Has completed physical therapy without any significant improvement. This causes her to be unable to bear weight without severe pain. States she is seeing orthopedics for her wrist and they were going to inject my knee , has an appointment scheduled, date unknown. Also she complaining of left lower back pain radiating into the left leg which is chronic. She has had MRI of the back, 2-3 weeks ago at [facility], but has not yet received results. Tylenol, Advil, and a muscle relaxant but these are not helping. No recent injury or falls. Plan: XR right knee <Alie Seymour CNP - Last Filed: 04/02/22 15:36> Reevaluation(s) Reevaluation #1: X-ray show no acute fracture. Patient received Toradol IM and given Willian wrap. Due to upcoming endoscopy would hold on NSAIDs, prednisone. Will augment patient's current medications an add Flexeril. Reviewed worrisome signs and symptoms and when to return to the emergency room. Comfortable plan for discharge home. <Jennifer Storm NP - Last Filed: 04/02/22 17:18> Medications Administered Discontinued Medications Generic Name Dose Route Start Last Admin Trade Name Freq PRN Reason Stop Dose Admin Ketorolac Tromethamine 30 mg 04/02/22 16:46 04/02/22 17:01 Ketorolac Tromethamine 30 Mg/Ml Vial IM 04/02/22 16:47 30 mg ONCE ONE Administration <Alie Seymour CNP - Last Filed: 04/02/22 15:36> Medications Administered Discontinued Medications Generic Name Dose Route Start Last Admin Trade Name Freq PRN Reason Stop Dose Admin Ketorolac Tromethamine 30 mg 04/02/22 16:46 04/02/22 17:01 Ketorolac Tromethamine 30 Mg/Ml Vial IM 04/02/22 16:47 30 mg ONCE ONE Administration <Jennifer Storm NP - Last Filed: 04/02/22 17:18> Medical Decision Making Medical Decision Making MDM Narrative: This is a 51-year-old female who presents with chronic right knee pain for 6 months with no known injury or trauma who feels like physical therapy has not been helpful for her and recent discontinuation of her ibuprofen due to upcoming endoscopy which may have caused increased in pain. No new injury or trauma. Patient with tenderness over the anterior right knee with no swelling, redness, warmth. Patient is able to flex and extend the knee without difficulty. She does have some pain but is able. No ligamental laxity. Negative anterior drawer. Patient had x-ray ordered from triage Patient has plans for follow-up with orthopedic upcoming <Jennifer Storm NP - Last Filed: 04/02/22 17:18> Differential Diagnosis Differential Diagnoses: The differential diagnosis associated with the presentation includes <Jennifer Storm NP - Last Filed: 04/02/22 17:18> Arthritis, knee strain, fracture, knee sprain, ligamental injury <Jennifer Storm NP - Last Filed: 04/02/22 17:18> Independent Interpretation I performed an independent interpretation of an: Plain X-Ray <Jennifer Storm NP - Last Filed: 04/02/22 17:18> Interpretation: I independently reviewed the x-ray which shows no acute finding <Jennifer Storm NP - Last Filed: 04/02/22 17:18> Radiology Impression Discussion of test interpretation with radiology: I have reviewed the radiologist's reading. <Jennifer Storm NP - Last Filed: 04/02/22 17:18> Radiologist Impression: EXAMINATION: XR KNEE, RIGHT? CLINICAL INFORMATION: Atraumatic pain. Unable to bear weight? COMPARISON: 10/16/2021? TECHNIQUE: Four views of the right knee. FINDINGS: No fracture, dislocation, or joint effusion. Normal mineralization and alignment. Joint spaces are maintained.? XR/XR knee RT 4V IMPRESSION: No acute osseous abnormality of the right knee. <Jennifer Storm NP - Last Filed: 04/02/22 17:18> Discharge Plan Discharge Clinical Impression: Chronic knee pain <Alie SeymourCHARLY - Last Filed: 04/02/22 15:36> Patient Disposition: Home, Self-Care <Alie SeymourCHARLY - Last Filed: 04/02/22 15:36> Instructions: Knee Pain (ED) <Alie SeymourCHARLY - Last Filed: 04/02/22 15:36> Additional Instructions: Calor o hielo. Estiramiento suave. [place] los medicamentos seg?n lo prescrito. Seguimiento con ortopedia. use la envoltura as para mayor comodidad. Contin?e con Tylenol. Contin?e con el diclofenaco t?dejan. Tambi?n puede usar nile parches medicados. Puede aumentar camarillo dosis de Lyrica ya que as? es jason se lo recetaron. <Alie SeymourCHARLY - Last Filed: 04/02/22 15:36> Prescriptions: New cyclobenzaprine 10 mg tablet 10 mg PO TID PRN (Reason: muscle spasm) Qty: 15 0RF No Action omeprazole 20 mg capsule,delayed release(DR/EC) 20 mg PO DAILY diphenhydramine HCl [Benadryl] 25 mg capsule 25 mg PO BEDTIME gabapentin 300 mg capsule 300 mg PO BEDTIME insulin lispro [Humalog Stevan KwikPen U-100] 100 unit/mL insulin pen, half-unit 5.5 unit subcut BEDTIME Label Comments: 70 in the am 30 at dinner Humulin 70/30 U-100 KwikPen 100 unit/mL (70-30) insulin pen 48 unit subcut BID cholecalciferol (vitamin D3) 50 mcg (2,000 unit) tablet 50 mcg PO DAILY Farxiga 5 mg tablet 5 mg PO QAM pregabalin 100 mg capsule 100 mg PO TID escitalopram oxalate 5 mg tablet 15 mg PO QAM buspirone 7.5 mg tablet 7.5 mg PO BID amlodipine 5 mg tablet 7.5 mg PO DAILY pravastatin 40 mg tablet 40 mg PO BEDTIME ferrous sulfate 325 mg (65 mg iron) tablet,delayed release (DR/EC) 325 mg PO DAILY omega 8-[id number]-cju-fish oil 300 mg (120 mg- 180mg)-1,000 mg capsule 1 cap PO BID hydrocortisone 2.5 % cream with perineal applicator topical QID PRN <Alie Seymour CNP - Last Filed: 04/02/22 15:36> Referrals: [facility] [Provider Group] <Alie Seymour CNP - Last Filed: 04/02/22 15:36> Discharge Date/Time: 04/02/22 17:14 <Alie Seymour CNP - Last Filed: 04/02/22 15:36> Print Language: Bulgarian <Alie Seymour CNP - Last Filed: 04/02/22 15:36>
[2022-04-02 16:58] VITALS: BP 127/85; PULSE 87; RESP 14; O2SAT 100
[2022-04-02] MEDS: Ketorolac Tromethamine 30 MG/ML VIAL IM (17:01)
== END 2022-04-02 17:14 | disposition home or self-care (01) ==
PROVIDERS: Emergency Provider Emergency Medicine; PCP Family Medicine
DX: M25.561 Pain in right knee (principal); M54.9 Dorsalgia, unspecified; E11.8 Type 2 diabetes mellitus with unspecified complications
CPT/HCPCS: 73564; 96372; 99283; 99284; J1885

== ENCOUNTER 2022-04-14 14:26 | Outpatient (REF) | payer MEDICAID, SELFPAY | END 2022-04-14 14:27 | disposition home or self-care (01) | LOC: HO.LNP 14:26 | PROVIDERS: Visit Provider Internal Medicine | DX: R11.0 Nausea (principal) | CPT/HCPCS: 87338 ==

== ENCOUNTER 2022-04-25 22:31 | Emergency (ER) | payer MEDICAID, SELFPAY ==
--- NOTE | ~2022-04-25 | XR_ITS ---
EXAMINATION: XR ABDOMEN KUB CLINICAL INDICATION: Rule out free air, low suspicion. COMPARISON: 02/17/2021 TECHNIQUE: AP upright view of the abdomen. FINDINGS: Unfortunately the diaphragm is not fully included in the [id number] of the upright image. There is no gross evidence of free air, although this cannot be fully excluded. Nonobstructive bowel gas pattern. Mild degenerative change in the spine. XR/XR KUB IMPRESSION: No gross evidence of free air, although the diaphragm is not fully included in the [id number] of the upright image. Therefore this cannot be fully excluded.
--- NOTE | ~2022-04-25 | XR_ITS ---
EXAMINATION: XR CHEST CLINICAL INFORMATION: Rule out free air. COMPARISON: Abdominal radiograph from today. TECHNIQUE: Frontal view of the chest was obtained. FINDINGS: The lungs are well expanded. There is no focal consolidation, edema, or effusion. No pneumothorax. The cardiomediastinal silhouette is within normal limits. No acute osseous abnormality. No free intraperitoneal air. XR/XR chest 1V IMPRESSION: No acute pulmonary disease. No free intraperitoneal air.
[2022-04-25 22:53] VITALS: BP 146/79; PULSE 105; RESP 20; TEMP 37; O2SAT 98; BMI 32.9
[2022-04-25 23:44] VITALS: BP 143/79; PULSE 95; RESP 18; TEMP 36.6; O2SAT 99
--- NOTE | 2022-04-25 23:49 | PC.NURSE ---
pt currently resting on stretcher, respirations are even and unlabored, blood work complete, awaiting new MD orders
[2022-04-26 00:06] LABS: Basophils Percent Auto 0.1 % (0-2); Eosinophils Absolute Auto 0.4 X10*3/uL (0.0-0.4); Eosinophils Percent Auto 5.6 % (0-4); Hematocrit 41.3 % (37.0-47.0); Hemoglobin 13.7 g/dl (12.0-16.0); Imm Gran Abs Auto 0.02 X10*3/uL (0.00-0.03); Imm Gran Pct Auto 0.3 % (0.0-0.4); Lymphocytes Absolute Auto 0.8 X10*3/uL (1.2-4.9); Lymphocytes Percent Auto 11.1 % (20-40); MANUAL DIFF FLAG NO; Mean Corpuscular HGB Conc 33.2 g/dl (31.0-35.0); Mean Corpuscular Hemoglobin 28.4 pg (27.0-33.0); Mean Corpuscular Volume 85.5 fL (80.0-98.0); Mean Platelet Volume 10.8 fL (9.4-12.3); Monocytes Absolute Auto 0.5 X10*3/uL (0.1-1.2); Monocytes Percent Auto 6.5 % (2-11); Neutrophils Absolute Auto 5.7 x10*3/uL (2.0-8.3); Neutrophils Percent Auto 76.4 % (45-73); Platelet Count 197 X10*3/uL (160-400); Red Blood Count 4.83 X10*6/uL (4.20-5.50); Red Cell Distribution Width 14.1 % (11.0-16.0); White Blood Count 7.5 X10*3/uL (4.8-10.8)
[2022-04-26 00:22] LABS: COVID-19 Test Negative (Negative); IDNOW Serial# 16C4AD1C
[2022-04-26 00:23] LABS: Alanine Aminotransferase 33 U/L (0-31); Albumin Level 4.2 g/dL (3.5-5.0); Alkaline Phosphatase 47 U/L (39-117); Anion Gap 15 (12-20); Aspartate Amino Transferase 39 U/L (5-31); Bilirubin Direct 0.2 mg/dL (0.0-0.5); Bilirubin Total 0.7 mg/dL (0.0-1.0); Blood Urea Nitrogen 16 mg/dL (9-16); Calcium 9.2 mg/dL (8.4-10.2); Carbon Dioxide 21 mmol/L (22-29); Chloride 104 mmol/L (96-108); Creatinine Clr Calc Pharmacy 86.9; Estimated Glomerular Filt Rate > 60; Glucose Random 114 mg/dL (60-115); Lipase 14 U/L (8-78); Potassium 3.6 mmol/L (3.3-5.1); Sodium 136 mmol/L (135-145); Total Protein 7.4 g/dL (6.5-8.0)
--- NOTE | 2022-04-26 00:40 | PC.NURSE ---
pt reporting increased pain and nausea. MD aware
--- NOTE | 2022-04-26 00:50 | ED_ITS ---
HPI - General Adult General Chief complaint: Abdominal Pain Stated complaint: Flu like symptoms Time Seen by Provider: 04/25/22 23:29 Source: patient Mode of arrival: ambulatory Limitations: no limitations History of Present Illness HPI narrative: Patient comes to the emergency room with multiple complaints. Patient complaining of headache, nausea, vomiting and diarrhea. complaining of diffuse abdominal pain, complaining of bone pain complaining muscle pain. Patient denies chest pain or shortness of breath. Patient complaining of severe anxiety. Patient requesting medication to help with anxiety. Also, patient states that she was recently tested for H pylori, she tested positive but no antibiotics have been sent. Patient states that she has a family member at home that has the same symptoms. Related Data Home Medications Medication Instructions Recorded Confirmed diphenhydramine HCl 25 mg capsule 25 mg PO BEDTIME 02/04/20 03/22/22 (Benadryl) gabapentin 300 mg capsule 300 mg PO BEDTIME 02/04/20 03/22/22 omeprazole 20 mg capsule,delayed 20 mg PO DAILY 02/04/20 03/22/22 release insulin lispro 100 unit/mL 5.5 unit subcut BEDTIME 02/24/22 03/22/22 subcutaneous half-unit pen (Humalog Stevan KwikPen (U-100)) amlodipine 5 mg tablet 7.5 mg PO DAILY 03/22/22 03/22/22 buspirone 7.5 mg tablet 7.5 mg PO BID 03/22/22 03/22/22 cholecalciferol (vitamin D3) 50 50 mcg PO DAILY 03/22/22 03/22/22 mcg (2,000 unit) tablet dapagliflozin 5 mg tablet (Farxiga) 5 mg PO QAM 03/22/22 03/22/22 escitalopram oxalate 5 mg tablet 15 mg PO QAM 03/22/22 03/22/22 ferrous sulfate 325 mg (65 mg 325 mg PO DAILY 03/22/22 03/22/22 iron) tablet,delayed release hydrocortisone 2.5 % topical cream topical QID PRN 03/22/22 03/22/22 with perineal applicator insulin NPH-regular 70-30 U-100 48 unit subcut BID 03/22/22 03/22/22 insulin 100 unit/mL subcutaneous pen (Humulin 70/30 U-100 KwikPen) omega-3 300 mg-dha 120 mg-epa 180 1 cap PO BID 03/22/22 03/22/22 mg-fish oil 1,000 mg capsule pravastatin 40 mg tablet 40 mg PO BEDTIME 03/22/22 03/22/22 pregabalin 100 mg capsule 100 mg PO TID 03/22/22 03/22/22 Previous Rx's Medication Instructions Recorded cyclobenzaprine 10 mg tablet 10 mg PO TID PRN muscle spasm #15 04/02/22 tabs amoxicillin 500 mg capsule 1,000 mg PO DAILY 14 days #28 caps 04/26/22 clarithromycin 500 mg tablet 500 mg PO BID 14 days #28 tabs 04/26/22 lansoprazole 30 mg capsule,delayed 30 mg PO DAILY #14 caps 04/26/22 release (Prevacid) prochlorperazine maleate 5 mg 5 mg PO BID PRN nausea and 04/26/22 tablet (Compazine) vomiting #10 tabs Allergies Allergy/AdvReac Type Severity Reaction Status Date / Time enalapril [ENALAPRIL] Allergy Unknown UNK Verified 04/02/22 15:35 hydrochlorothiazide Allergy Unknown UNK Verified 04/02/22 15:35 [HYDROCHLOROTHIAZIDE] lisinopril [LISINOPRIL] Allergy Unknown HIVES,THROAT Verified 04/02/22 15:35 SWELLING metoprolol [METOPROLOL] Allergy Unknown UNK Verified 04/02/22 15:35 metronidazole [METRONIDAZOLE] Allergy Unknown UNK Verified 04/02/22 15:35 Oxycodone HCl Allergy Unknown vomiting Uncoded 03/22/22 13:23 Review of Systems Review of Systems: Constitutional : No Weight loss, No Fever, No Chills, No Night Sweats, complaining of fatigue and generalized malaise ENT/Mouth : No Hearing loss, No Ear Pain, No Nasal Congestion, No Sinus Pain, No Hoarseness, No sore throat, No Rhinorrhea, No Swallowing Difficulty Eyes: No Eye Pain, No Swelling, No Redness, No Foreign Body, No Discharge, No Vision Changes Cardiovascular : No Chest Pain, No SOB, No Dyspnea on Exertion, No Orthopnea, No Edema, No Palpitations Respiratory : No Cough, No Sputum, No Wheezing, No Smoke Exposure, No Dyspnea Gastrointestinal : Complaining of nausea vomiting and diarrhea, complaining of diffuse abdominal pain Genitourinary : no irregular bleeding, No Dysuria, No Urinary Frequency, No Hematuria, No Urinary Incontinence, No Urgency, No Flank Pain, No Urinary Flow Changes, No Hesitancy Musculoskeletal : No joint pain, complaining of diffuse Myalgias, No Joint Swelling Skin : No Skin Lesions, No rash Neuro : No Weakness, No Numbness, No Paresthesias, No Loss of Consciousness, No Dizziness, complaining of Headache Psych : Complaining of Anxiety/Panic, No Depression, No SI/HI/AH/VH, No Social Issues, Heme/Lymph: No Bruising, No Bleeding,No Lymphadenopathy Endocrine : No Polyuria, No Polydipsia, No Temperature Intolerance [facility] Past Medical History Medical History Anxiety Depression Diabetes GERD (gastroesophageal reflux disease) HTN (hypertension) Hyperlipidemia Surgical History History of hand surgery Family History Family History Maternal Aunt Dialysis patient Hypertension Diabetes Mother Hypertension Diabetes Father Diabetes Hypertension Social History Social History Alcohol intake: never Patient Tobacco Use Status: Current everyday Tobacco user Cigarettes Per Day: 2 Advance Directives: No Current occupational status: unemployed Current occupation: right handed Physical Exam ED Vital Signs: Vital Signs - 24 hr 04/25/22 22:53 04/25/22 23:44 Temperature 98.6 F 97.9 F Pulse Rate 105 H 95 Respiratory Rate 20 18 Blood Pressure 146/79 H 143/79 H Pulse Oximetry 98 99 Oxygen Delivery Method Room Air Room Air BMI result Body Mass Index 32.9 Const Other: Appearance: Alert. Oriented X3. Very anxious Eyes: Pupils equal, round and reactive to light. ENT: Pharynx normal. Neck: Normal inspection. Neck supple. No lymph nodes noted. No crepitus CVS: Normal heart rate and rhythm. Pulses normal. Normal S1 and S2 Respiratory: No respiratory distress. Breath sounds normal. No Wheezing. No rales Abdomen: Soft, exaggerated response to minimal palpation in the abdomen all quadrants, No rigidity. No distention, no guarding Skin: Skin warm and dry. Normal skin color. Normal skin turgor. Extremities: No lower extremity edema. No Lacerations. No Rash Neuro: Oriented X 3. No motor deficit. No sensory deficit. Moving all extremities. No slurred speech. CN 2 through 12 grossly intact Psych: calm, cooperative, very anxious, crying, states that she feels very overwhelmed Course Course Course Narrative: -patient was given p.o. lidocaine with Maalox and omeprazole. Patient also complaining of nausea, given p.o. Compazine. Also, patient very anxious, given lorazepam -labs from today are unremarkable -stool H pylori antigen from April 14 positive for H pylori -KUB will be obtained to rule out free air in the abdomen, low suspicion. -patient requesting nausea medication but not Zofran because it makes her feel restless Medications Administered Discontinued Medications Generic Name Dose Route Start Last Admin Trade Name Freq PRN Reason Stop Dose Admin Al Hydroxide/Mg Hydroxide 15 ml 04/26/22 00:48 04/26/22 01:02 Magnesium Hydrox/Alum Hydrox 30 Ml Oral.Susp PO 04/26/22 00:49 15 ml ONCE ONE Administration Lidocaine HCl 15 ml 04/26/22 00:48 04/26/22 01:02 Lidocaine Hcl Viscous 2 % 15 Ml Solution MUCOUS MEM 04/26/22 00:49 15 ml ONCE ONE Administration Lorazepam 1 mg 04/26/22 00:48 04/26/22 01:03 Lorazepam 1 Mg Tablet PO 04/26/22 00:49 1 mg ONCE ONE Administration Omeprazole 20 mg 04/26/22 00:48 04/26/22 01:03 Omeprazole 20 Mg Capsule. PO 04/26/22 00:49 20 mg ONCE ONE Administration Prochlorperazine Maleate 10 mg 04/26/22 00:48 04/26/22 01:35 Prochlorperazine Maleate 5 Mg Tablet PO 04/26/22 00:49 10 mg ONCE ONE Administration Medical Decision Making Medical Decision Making MDM Narrative: -in the emergency room, patient has not vomited or had any episodes of diarrhea -discussed with the patient starting treatment for H pylori versus waiting to be seen by her braid folder. Patient would like to start treatment. Discussed with the patient that there are multiple treatments for H pylori, it is possible that her braid folder may change the combination therapy -I discussed with the patient she has 2 things going on at this time. One of them is the H pylori which she has had for several weeks/months. Also, in patient's family several people have the same symptoms. Patient likely having a viral syndrome. Patient tested negative for COVID-19. Patient does not have any fever, heart rate 95, normal blood pressure. Sepsis not suspected. -given the patient's list of allergies to medication, I sent to the patient's pharmacy lansoprazole, amoxicillin, clarithromycin. The regimen with bismuth subsalicylate includes metronidazole, which patient is allergic to. -KUB unremarkable per Radiology. Could not visualize the diaphragm. Chest x- ray shows no free air under the diaphragm. -patient ready for discharge Differential Diagnosis Differential Diagnoses: The differential diagnosis associated with the presentation includes (Viral syndrome, H pylori, anxiety) Lab Data MDM Lab Attestation statement: I reviewed the patient's lab results. 04/25/22 23:54 04/25/22 23:54 Labs: Lab Results 04/25/22 04/25/22 04/25/22 Range/Units 23:54 23:54 23:54 WBC 7.5 (4.8-10.8) X10*3/uL RBC 4.83 (4.20-5.50) X10*6/uL Hgb 13.7 (12.0-16.0) g/dl Hct 41.3 (37.0-47.0) % MCV 85.5 (80.0-98.0) fL MCH 28.4 (27.0-33.0) pg MCHC 33.2 (31.0-35.0) g/dl RDW 14.1 (11.0-16.0) % Plt Count 197 (160-400) X10*3/uL MPV 10.8 (9.4-12.3) fL Immature Gran % (Auto) 0.3 (0.0-0.4) % Neut % (Auto) 76.4 H (45-73) % Lymph % (Auto) 11.1 L (20-40) % [place] % (Auto) 6.5 (2-11) % Eos % (Auto) 5.6 H (0-4) % Baso % (Auto) 0.1 (0-2) % Lymph # (Auto) 0.8 L (1.2-4.9) X10*3/uL [place] # (Auto) 0.5 (0.1-1.2) X10*3/uL Eos # (Auto) 0.4 (0.0-0.4) X10*3/uL Baso # (Auto) 0.0 (0.0-0.2) X10*3/uL Abs Immat Gran (auto) 0.02 (0.00-0.03) X10*3/uL Absolute Neuts (auto) 5.7 (2.0-8.3) x10*3/uL Absolute Nucleated RBC 0.000 (0.0-0.012) X10*3/uL Nucleated RBC % (auto) 0.0 (0.0-0.2) /100WBC Sodium 136 (135-145) mmol/L Potassium 3.6 (3.3-5.1) mmol/L Chloride 104 (96-108) mmol/L Carbon Dioxide 21 L (22-29) mmol/L Anion Gap 15 (12-20) BUN 16 (9-16) mg/dL Creatinine 0.75 (0.5-1.4) mg/dL Estim Creat Clear Calc 86.9 Estimated GFR > 60 Random Glucose 114 (60-115) mg/dL Calcium 9.2 (8.4-10.2) mg/dL Total Bilirubin 0.7 (0.0-1.0) mg/dL Direct Bilirubin 0.2 (0.0-0.5) mg/dL AST 39 H (5-31) U/L ALT 33 H (0-31) U/L Alkaline Phosphatase 47 (39-117) U/L Total Protein 7.4 (6.5-8.0) g/dL Albumin 4.2 (3.5-5.0) g/dL Lipase 14 (8-78) U/L COVID-19 (BETSEY) Negative (Negative) COVID-19 Clin Com See Note Discharge Plan Discharge Clinical Impression: H. pylori infection, Nausea, Acute viral syndrome, Anxiety Patient Disposition: Home, Self-Care Instructions: Helicobacter Pylori (ED) Additional Instructions: Please follow-up with your primary care physician tomorrow. If you have any worsening or new symptoms, please return to the emergency room or call 911 Prescriptions: New lansoprazole [Prevacid] 30 mg capsule,delayed release(DR/EC) 30 mg PO DAILY Qty: 14 0RF amoxicillin 500 mg capsule 1,000 mg PO DAILY 14 Days Qty: 28 0RF clarithromycin 500 mg tablet 500 mg PO BID 14 Days Qty: 28 0RF prochlorperazine maleate [Compazine] 5 mg tablet 5 mg PO BID PRN (Reason: nausea and vomiting) Qty: 10 0RF No Action cyclobenzaprine 10 mg tablet 10 mg PO TID PRN (Reason: muscle spasm) Qty: 15 0RF omeprazole 20 mg capsule,delayed release(DR/EC) 20 mg PO DAILY diphenhydramine HCl [Benadryl] 25 mg capsule 25 mg PO BEDTIME gabapentin 300 mg capsule 300 mg PO BEDTIME insulin lispro [Humalog Stevan KwikPen U-100] 100 unit/mL insulin pen, half- unit 5.5 unit subcut BEDTIME Label Comments: 70 in the am 30 at dinner Humulin 70/30 U-100 KwikPen 100 unit/mL (70-30) insulin pen 48 unit subcut BID cholecalciferol (vitamin D3) 50 mcg (2,000 unit) tablet 50 mcg PO DAILY Farxiga 5 mg tablet 5 mg PO QAM pregabalin 100 mg capsule 100 mg PO TID escitalopram oxalate 5 mg tablet 15 mg PO QAM buspirone 7.5 mg tablet 7.5 mg PO BID amlodipine 5 mg tablet 7.5 mg PO DAILY pravastatin 40 mg tablet 40 mg PO BEDTIME ferrous sulfate 325 mg (65 mg iron) tablet,delayed release (DR/EC) 325 mg PO DAILY omega [id number]-fish oil 300 mg (120 mg- 180mg)-1,000 mg capsule 1 cap PO BID hydrocortisone 2.5 % cream with perineal applicator topical QID PRN
[2022-04-26] MEDS: Lidocaine HCl Viscous 2 % 15 ML SOLUTION MUCOUS MEM (01:02)
[2022-04-26] MEDS: Magnesium Hydrox/Alum Hydrox 30 ML ORAL.SUSP 15 ML PO (01:02)
[2022-04-26] MEDS: LORazepam 1 MG TABLET PO (01:03)
[2022-04-26] MEDS: Omeprazole 20 MG CAPSULE.DR PO (01:03)
[2022-04-26] MEDS: Prochlorperazine Maleate 5 MG TABLET 10 MG PO (01:35)
== END 2022-04-26 02:15 | disposition home or self-care (01) ==
PROVIDERS: Emergency Provider Emergency Medicine; PCP Family Medicine
DX: B34.9 Viral infection, unspecified (principal); B96.81 Helicobacter pylori [H. pylori] as the cause of diseases classified elsewhere; R51.9 Headache, unspecified; F41.1 Generalized anxiety disorder; F43.0 Acute stress reaction; Z20.822 Contact with and (suspected) exposure to COVID-19; Z20.828 Contact with and (suspected) exposure to other viral communicable diseases; Z79.899 Other long term (current) drug therapy
CPT/HCPCS: 71045; 74018; 80048; 80076; 83690; 85025; 87635; 99282; 99284

== ENCOUNTER 2022-04-28 16:57 | Outpatient (REF) | payer MEDICAID, SELFPAY ==
--- NOTE | ~2022-04-28 | XR_ITS ---
EXAMINATION: XR KNEE AP STANDING Right knee CLINICAL INFORMATION: Pain in the right knee COMPARISON: Right knee radiograph 04/02/2022, 10/16/2021 TECHNIQUE: AP bilateral standing view of the knees was obtained. [place] view of the patella right knee FINDINGS: Bones and soft tissues are normal. No fracture or joint effusion. Alignment is anatomic. Joint spaces are well maintained. No abnormal soft tissue calcification. The frontal view of the left knee is normal as well. XR/XR knee RT 1V IMPRESSION: Normal knees.
--- NOTE | ~2022-04-28 | XR_ITS ---
EXAMINATION: XR KNEE AP STANDING Right knee CLINICAL INFORMATION: Pain in the right knee COMPARISON: Right knee radiograph 04/02/2022, 10/16/2021 TECHNIQUE: AP bilateral standing view of the knees was obtained. [place] view of the patella right knee FINDINGS: Bones and soft tissues are normal. No fracture or joint effusion. Alignment is anatomic. Joint spaces are well maintained. No abnormal soft tissue calcification. The frontal view of the left knee is normal as well. XR/XR knee standing BI IMPRESSION: Normal knees.
== END 2022-04-28 16:58 | disposition home or self-care (01) ==
LOC: HO.HOSX 16:57
PROVIDERS: Visit Provider Physician Assistant
DX: M17.11 Unilateral primary osteoarthritis, right knee (principal)
CPT/HCPCS: 73560; 73565; 99202

== ENCOUNTER → 2022-04-30 13:28 | Outpatient (BNVA) | payer MEDICAID, SELFPAY | PROVIDERS: PCP Family Medicine; Visit Provider Internal Medicine | DX: R11.0 Nausea (principal); A04.8 Other specified bacterial intestinal infections | CPT/HCPCS: 99212 ==

== ENCOUNTER 2022-06-11 13:10 | Outpatient (REF) | payer MEDICAID, SELFPAY | END 2022-06-11 13:11 | disposition home or self-care (01) | LOC: HO.LNP 13:10 | PROVIDERS: PCP Family Medicine; Visit Provider Internal Medicine | DX: A04.8 Other specified bacterial intestinal infections (principal); R11.0 Nausea | CPT/HCPCS: 87338; 99212 ==

== ENCOUNTER → 2022-08-04 15:25 | Outpatient (BNVA) | payer MEDICAID, SELFPAY | PROVIDERS: PCP Family Medicine; Visit Provider Physician Assistant | DX: M17.11 Unilateral primary osteoarthritis, right knee (principal) | CPT/HCPCS: 20610; 99212; J1020 ==

== ENCOUNTER → 2022-09-01 13:16 | Outpatient (BNVA) | payer MEDICAID, SELFPAY | PROVIDERS: PCP Family Medicine; Visit Provider Internal Medicine | DX: K59.00 Constipation, unspecified (principal); R15.9 Full incontinence of feces | CPT/HCPCS: 99212 ==

== ENCOUNTER → 2022-09-07 12:33 | Outpatient (BNVA) | payer MEDICAID, SELFPAY | PROVIDERS: PCP Family Medicine; Visit Provider Orthopaedic Surgery | DX: M65.332 Trigger finger, left middle finger (principal); G56.03 Carpal tunnel syndrome, bilateral upper limbs; E11.9 Type 2 diabetes mellitus without complications | CPT/HCPCS: 99212 ==

== ENCOUNTER 2022-09-29 11:27 | Outpatient (REF) | payer MEDICAID, SELFPAY ==
[2022-09-29 13:10] LABS: MANUAL DIFF FLAG NO
[2022-09-29 13:34] LABS: Basophils Percent Auto 0.7 % (0-2); Eosinophils Absolute Auto 0.4 X10*3/uL (0.0-0.4); Eosinophils Percent Auto 8.3 % (0-4); Hematocrit 45.1 % (37.0-47.0); Hemoglobin 14.4 g/dl (12.0-16.0); Imm Gran Abs Auto 0.01 X10*3/uL (0.00-0.03); Imm Gran Pct Auto 0.2 % (0.0-0.4); Lymphocytes Absolute Auto 1.3 X10*3/uL (1.2-4.9); Mean Corpuscular HGB Conc 31.9 g/dl (31.0-35.0); Mean Corpuscular Hemoglobin 29.4 pg (27.0-33.0); Mean Corpuscular Volume 92.2 fL (80.0-98.0); Mean Platelet Volume 11.4 fL (9.4-12.3); Monocytes Absolute Auto 0.3 X10*3/uL (0.1-1.2); Monocytes Percent Auto 6.7 % (2-11); Neutrophils Absolute Auto 2.6 x10*3/uL (2.0-8.3); Neutrophils Percent Auto 56.1 % (45-73); Platelet Count 220 X10*3/uL (160-400); Red Blood Count 4.89 X10*6/uL (4.20-5.50); Red Cell Distribution Width 15.9 % (11.0-16.0); White Blood Count 4.6 X10*3/uL (4.8-10.8)
[2022-09-29 14:21] LABS: Erythrocyte Sedimentation Rate 19 MM/HR (0-20)
[2022-09-29 14:46] LABS: Rheumatoid Factor < 13.0 IU/mL (<15.0)
[2022-09-29 15:20] LABS: Estimated Average Glucose 154 mg/dL
[2022-09-29 15:45] LABS: Alanine Aminotransferase 897 U/L (0-31); Albumin Level 4.3 g/dL (3.5-5.0); Alkaline Phosphatase 137 U/L (39-117); Aspartate Amino Transferase 405 U/L (5-31); Bilirubin Direct 0.4 mg/dL (0.0-0.5); Bilirubin Total 0.7 mg/dL (0.0-1.0); Blood Urea Nitrogen 12 mg/dL (9-16); C Reactive Protein 0.59 mg/dL (< or = 0.50); Calcium 9.9 mg/dL (8.4-10.2); Chloride 101 mmol/L (96-108); Cholesterol 191 mg/dL; Estimated Glomerular Filt Rate > 60; Glucose Random 264 mg/dL (60-115); HDL Cholesterol 79 mg/dL; LDL Cholesterol Calculated 99 mg/dl; Potassium 5.1 mmol/L (3.3-5.1); Sodium 139 mmol/L (135-145); Triglycerides 66 mg/dL
[2022-09-29 16:05] LABS: Free T4 (Free Thyroxine) 0.82 ng/dL (0.71-1.85); Thyroid Stimulating Hormone 0.22 uIU/mL (0.32-4.0); Vitamin D 25-OH Total 40.7 ng/mL (>30)
[2022-09-29 16:49] LABS: Creatinine Urine 222.06 mg/dL; Microalbum/Creatinine Ratio Ur 54.9 ug/mg cr
[2022-09-30 02:07] LABS: Carbon Dioxide 28 mmol/L (22-29)
[2022-09-30 05:16] LABS: ~HepC Num1 0.09 S/CO (0.00-0.79); ~Hepatitis C Antibody Nonreactive (Nonreactive)
[2022-09-30 05:23] LABS: HIV AB/AG Nonreactive (Nonreactive); HIV Num 1 0.06 S/CO (0.00-0.99)
[2022-09-30 13:55] LABS: CT PCR NOT DETECTED (Not Detect.); NG PCR NOT DETECTED (Not Detect.)
[2022-10-01 08:15] LABS: Syphilis Screen Nonreactive (Nonreactive)
[2022-10-01 13:47] LABS: Lyme Abs Screen <0.90 index
[2022-10-05 08:13] LABS: Anti Nuclear Antibody Screen NEGATIVE (NEGATIVE)
[2022-10-05 13:39] LABS: Alpha Fetoprotein 2.4 ng/mL
== END 2022-09-29 11:28 | disposition home or self-care (01) ==
LOC: HO.HHCL 11:27
PROVIDERS: Visit Provider Family Medicine
DX: Z00.00 Encounter for general adult medical examination without abnormal findings (principal); Z11.4 Encounter for screening for human immunodeficiency virus [HIV]; M25.50 Pain in unspecified joint; K76.0 Fatty (change of) liver, not elsewhere classified
CPT/HCPCS: 0353U; 80048; 80061; 80076; 82043; 82105; 82306; 83036; 84439; 84443; 85025; 85652; 86038; 86140; 86431; 86592; 86617; 86618; 86780; 86803; 87389

== ENCOUNTER 2022-09-30 10:09 | Day surgery (SDC) | payer MEDICAID, SELFPAY ==
--- NOTE | 2022-09-30 10:23 | W.PM.OPN ---
Operative Note Operative Note Date of Service: 09/30/22 Narrative: Operative Note Preop diagnosis: 1. left middle finger Trigger finger Postop diagnosis: 1. left middle finger Trigger finger Procedure: 1. left middle finger A1 jason release Surgeon: Leslie Freitas MD Anesthesia: local block using 1% lidocaine with epinephrine Findings: No locking or catching after A1 jason release EBL: Less than 5 mL Tourniquet time: None Specimens: None Complications: None Disposition: Brought to recovery room in stable condition Plan: Follow-up for 10-14 days for wound check and suture removal Indications: The patient is 52 years old, with a left middle finger trigger finger that has been unresponsive to nonoperative management. The risks and benefits of operative treatment including but not limited to risk of damage to blood vessels, nerves, tendons, infection, persistent pain, persistent symptoms, recurrence or possible need for additional surgery were discussed with the patient and the patient wishes to proceed with surgery. Procedure: Once consent was obtained a local block was performed in the preop area using a combination of 1% lidocaine with epinephrine. The patient was then brought back to the operating suite and placed on the operative table in supine position. The left upper extremity was prepped and draped in a standard surgical fashion. Once assured that we had a good block, a 1.5 cm oblique incision was made centered over the A1 jason of the left middle finger . The incision was made through the skin to the subcutaneous tissues using a #15 blade. Careful dissection was made down to the level of the A1 jason using tenotomy scissors, with care being taken to protect the nearby neurovascular structures. A longitudinal incision was made in the A1 jason 1st using a #15 blade, then using tenotomy scissors under direct visualization. The A1 jason was noted to be thickened. Following our A1 jason release, we no longer saw any locking or catching of the digit with flexion and extension. Once satisfied with our A1 jason release the wound was copiously irrigated with normal saline and hemostasis was obtained with a brief period of local pressure. The skin edges were reapproximated with some 5.0 nylon suture material and a sterile dressing was applied. The patient appears to have tolerated the procedure well and with no complications. All digits were well vascularized at the conclusion of the case.
[2022-09-30 11:16] VITALS: BP 144/83; PULSE 80; RESP 16; TEMP 36.1; O2SAT 99; BMI 33.8
--- NOTE | 2022-09-30 12:25 | MHC.SHP ---
Pre-Procedural Eval Section A Date of Service: 09/30/22 The patient is an INPATIENT: No Changes since office visit: No Cold of Flu in the past 2 weeks, No New Medical Problems, No Changes in Medication and No Patient answered all questions The History & Physical has been completed within 30 days and I have reviewed it.: Yes Section B Chief Complaint: Trigger finger, left middle finger Allergies: Allergies Allergy/AdvReac Type Severity Reaction Status Date / Time enalapril [ENALAPRIL] Allergy Unknown UNK Verified 09/07/22 13:03 hydrochlorothiazide Allergy Unknown UNK Verified 09/07/22 13:03 [HYDROCHLOROTHIAZIDE] lisinopril [LISINOPRIL] Allergy Unknown HIVES,THROAT Verified 09/07/22 13:03 SWELLING metoprolol [METOPROLOL] Allergy Unknown UNK Verified 09/07/22 13:03 metronidazole [METRONIDAZOLE] Allergy Unknown UNK Verified 09/07/22 13:03 Oxycodone HCl Allergy Unknown vomiting Uncoded 09/01/22 13:25 Plan I have reviewed the history and physical and performed a pertinent physical examination on my patient. No changes have occurred unless specified. Time Spent With Patient Time: Total time managing care of this patient today ____ minutes.
[2022-09-30 13:55] VITALS: BP 121/79; PULSE 80; RESP 18; O2SAT 97
== END 2022-09-30 13:57 | disposition home or self-care (01) ==
PROVIDERS: PCP Family Medicine; Visit Provider Orthopaedic Surgery
PROC: (CPT 26055; principal; 2022-09-30 11:30)
DX: M65.332 Trigger finger, left middle finger (principal); I10 Essential (primary) hypertension; E11.9 Type 2 diabetes mellitus without complications; Z88.8 Allergy status to other drugs, medicaments and biological substances
CPT/HCPCS: 26055; J0171

== ENCOUNTER → 2022-09-30 10:09 | Outpatient (BNV) | payer MEDICAID, SELFPAY | PROVIDERS: PCP Family Medicine; Visit Provider Orthopaedic Surgery | DX: M65.332 Trigger finger, left middle finger (principal) | CPT/HCPCS: 26055 ==

== ENCOUNTER 2022-09-30 17:56 | Emergency (ER) | payer MEDICAID, SELFPAY ==
--- NOTE | ~2022-09-30 | US_ITS ---
EXAMINATION: US ABDOMEN COMPLETE CLINICAL INFORMATION: Abdominal pain. COMPARISON: None available. TECHNIQUE: Real-time imaging of the abdominal viscera. FINDINGS: PANCREAS: Only part of the body the pancreas is visualized and appears unremarkable. Rest the pancreas is obscured. ABDOMINAL AORTA: The mid abdominal aorta appears normal caliber. The proximal and distal segments are not seen. INFERIOR VENA CAVA: Visualized portions are normal. LIVER: The liver is normal in size. The liver contour is normal. Parenchymal echogenicity is slightly echogenic. No focal hepatic lesion. There is no intrahepatic biliary duct dilatation seen. GALLBLADDER: There are small echogenic nonmobile polyps measuring .2 x 0.3 x 0.2 cm along the anterior abdominal wall. The gallbladder is physiologically distended without evidence of stones, sludge, wall thickening or pericholecystic fluid. COMMON BILE DUCT: Normal in caliber measuring 0.1 cm in diameter. RIGHT KIDNEY: Normal. No hydronephrosis. No renal calculi or focal parenchymal lesions. The kidney measures 10.2 cm in maximum dimension. LEFT KIDNEY: Normal. No hydronephrosis. No renal calculi or focal parenchymal lesions. The kidney measures 10.0 cm in maximum dimension. SPLEEN: Normal. The spleen measures 8.0 cm in maximum dimension. FREE FLUID: None. US/US abdomen complete IMPRESSION: Small gallbladder polyp without any echogenic stones or wall thickening. Some of the visualized pancreas and the abdominal aorta. Rest of the abdominal ultrasound is unremarkable.
[2022-09-30 18:02] VITALS: BP 146/80; PULSE 84; RESP 18; TEMP 36.4; O2SAT 97; BMI 34.3
--- NOTE | 2022-09-30 18:10 | ED_ITS ---
HPI - General Adult General Chief complaint: Recheck/Abnormal Lab/Rx Stated complaint: Sent by Doctor Time Seen by Provider: 09/30/22 21:42 Source: patient Mode of arrival: ambulatory Limitations: no limitations History of Present Illness HPI narrative: Patient drinks Alcohol occasionally takes Tylenol once every night had carpal tunnel surgery today surgery which showed elevated LFT patient denies any abdominal pain had slight nausea before no risk factors for hepatitis patient took 5 days of fluconazole last week and treated with nitrofurantoin and Augmentin for UTI Related Data Home Medications Medication Instructions Recorded Confirmed diphenhydramine HCl 25 mg capsule 25 mg PO BEDTIME 02/04/20 08/04/22 (Benadryl) gabapentin 300 mg capsule 300 mg PO BEDTIME 02/04/20 08/04/22 amlodipine 5 mg tablet 7.5 mg PO DAILY 03/22/22 08/04/22 buspirone 7.5 mg tablet 7.5 mg PO BID 03/22/22 08/04/22 cholecalciferol (vitamin D3) 50 50 mcg PO DAILY 03/22/22 08/04/22 mcg (2,000 unit) tablet dapagliflozin propanediol 5 mg 5 mg PO QAM 03/22/22 08/04/22 tablet (Farxiga) escitalopram oxalate 5 mg tablet 15 mg PO QAM 03/22/22 08/04/22 ferrous sulfate 325 mg (65 mg 325 mg PO DAILY 03/22/22 08/04/22 iron) tablet,delayed release hydrocortisone 2.5 % topical cream topical QID PRN 03/22/22 08/04/22 with perineal applicator insulin NPH-regular 70-30 U-100 48 unit subcut BID 03/22/22 08/04/22 insulin 100 unit/mL subcutaneous pen (Humulin 70/30 U-100 Alicia) omega-3 300 mg-dha 120 mg-epa 180 1 cap PO BID 03/22/22 08/04/22 mg-fish oil 1,000 mg capsule pravastatin 40 mg tablet 40 mg PO BEDTIME 03/22/22 08/04/22 pregabalin 100 mg capsule 100 mg PO TID 03/22/22 08/04/22 aspirin 81 mg tablet,delayed 81 mg PO DAILY 04/30/22 08/04/22 release (Adult Aspirin Regimen) blood sugar diagnostic (FreeStyle #10 ea 04/30/22 08/04/22 Lite Strips) diclofenac sodium 1 % topical gel 2 g topical BID PRN pain 04/30/22 08/04/22 miconazole nitrate 2 % topical appl topical BID 04/30/22 08/04/22 cream sennosides 8.6 mg capsule (senna) 8.6 mg PO BEDTIME 04/30/22 08/04/22 acetaminophen 650 mg 650 mg PO BID PRN fever 06/11/22 08/04/22 tablet,extended release alcohol swabs (Alcohol Prep Pads) 0 pad topical DAILY 06/11/22 08/04/22 clarithromycin 500 mg tablet 500 mg PO BID 06/11/22 08/04/22 cyclobenzaprine 10 mg tablet 10 mg PO TID PRN muscle spasm 06/11/22 08/04/22 cetirizine 10 mg tablet 10 mg PO DAILY 09/01/22 dulaglutide 0.75 mg/0.5 mL 0.75 mg subcut QWEEK 09/01/22 subcutaneous pen injector (Trulicity) Previous Rx's Medication Instructions Recorded prochlorperazine maleate 5 mg 5 mg PO BID PRN nausea and 04/26/22 tablet (Compazine) vomiting #10 tabs omeprazole 20 mg capsule,delayed 20 mg PO BID 14 days #28 caps 04/30/22 release oxycodone-acetaminophen 5 mg-325 1 tab PO Q6H PRN pain #5 tabs 09/30/22 mg tablet Allergies Allergy/AdvReac Type Severity Reaction Status Date / Time enalapril [ENALAPRIL] Allergy Unknown UNK Verified 09/30/22 18:02 hydrochlorothiazide Allergy Unknown UNK Verified 09/30/22 18:02 [HYDROCHLOROTHIAZIDE] lisinopril [LISINOPRIL] Allergy Unknown HIVES,THROAT Verified 09/30/22 18:02 SWELLING metoprolol [METOPROLOL] Allergy Unknown UNK Verified 09/30/22 18:02 metronidazole [METRONIDAZOLE] Allergy Unknown UNK Verified 09/30/22 18:02 Oxycodone HCl Allergy Unknown vomiting Uncoded 09/30/22 18:02 Review of Systems Review of Systems: Yes all other systems are reviewed and are negative PMFSH Past Medical History Medical History Anxiety Depression Diabetes GERD (gastroesophageal reflux disease) HTN (hypertension) Hyperlipidemia Surgical History History of hand surgery Hx of colonoscopy Family History Family History Maternal Aunt Dialysis patient Hypertension Diabetes Mother Hypertension Diabetes Father Diabetes Hypertension Social History Social History Alcohol intake: never Patient Tobacco Use Status: Never used Tobacco Cigarettes Per Day: 2 Smoked in Last 30 Days: No Use of substances other than those prescribed or required for medical reasons: No Advance Directives: Yes Advance Directives Information Provided: No Advance Directives on File: No Current occupational status: unemployed Current occupation: right handed Physical Exam ED Vital Signs: Vital Signs - 24 hr 09/30/22 18:02 09/30/22 21:42 Temperature 97.6 F 98.0 F Pulse Rate 84 72 Respiratory Rate 18 18 Blood Pressure 146/80 H 151/75 H Pulse Oximetry 97 96 Oxygen Delivery Method Room Air Room Air BMI result Body Mass Index 34.3 Appearance: Alert. Oriented X3. No acute distress. Eyes: PERRLA, No Nystagmus ENT: Pharynx normal. Oral Mucosa moist Neck: Normal inspection. Neck supple. CVS: Normal heart rate and rhythm. Pulses normal. Respiratory: No respiratory distress. Equal air entry bilateral, no wheezing/rales/rhonchi Abdomen: Soft and nontender. Bowel sounds are present, no mass palpable, no CVA tenderness Skin: Skin warm and dry. Normal skin color. Normal skin turgor. Extremities: No lower extremity edema. No calf tenderness Neuro: Oriented X 3. No motor deficit. No sensory deficit.No cerebellar signs , cranial nerves II-XII intact Course Course Course Narrative: This is an RME: Additional HPI, ROS, PE not included below will be deferred to primary provider. This is a [id number]-female, with a history of anxiety, diabetes, hypertension, and hyperlipidemia, presenting to the emergency department with complaints of elevated liver enzymes. Patient had surgery and had lab work performed prior to surgery and was called today as her AST and ALT were 405/897 and alkaline phosphatase 137. Patient admits to having lower abdominal pain, but attributes this to her current urinary tract infection which she is taking Augmentin for. Pain radiates into her back. She denies regular alcohol use or regular tylenol use. Plan: Medical Decision Making Medical Decision Making [facility] Narrative: Patient with elevated liver functions likely after patient was treated with fluconazole labs have improved ultrasound of the abdomen was negative patient advised to follow with PCP/GI no signs of encephalopathy labs for hepatitis p rofile and HIV were sent although less likely Differential Diagnosis Differential Diagnoses: The differential diagnosis associated with the presentation includes Acute hepatitis/autoimmune hepatitis/SANTOS/cholecystitis Lab Data [facility] Lab Attestation statement: I reviewed the patient's lab results. 09/30/22 20:10 09/30/22 20:10 Labs: Lab Results 09/30/22 09/30/22 Range/Units 20:10 20:10 WBC 6.9 (4.8-10.8) X10*3/uL RBC 4.74 (4.20-5.50) X10*6/uL Hgb 14.1 (12.0-16.0) g/dl Hct 42.1 (37.0-47.0) % MCV 88.8 (80.0-98.0) fL MCH 29.7 (27.0-33.0) pg MCHC 33.5 (31.0-35.0) g/dl RDW 16.2 H (11.0-16.0) % Plt Count 215 (160-400) X10*3/uL MPV 11.0 (9.4-12.3) fL Immature Gran % (Auto) 0.3 (0.0-0.4) % Neut % (Auto) 54.7 (45-73) % Lymph % (Auto) 33.3 (20-40) % [place] % (Auto) 6.1 (2-11) % Eos % (Auto) 5.2 H (0-4) % Baso % (Auto) 0.4 (0-2) % Lymph # (Auto) 2.3 (1.2-4.9) X10*3/uL [place] # (Auto) 0.4 (0.1-1.2) X10*3/uL Eos # (Auto) 0.4 (0.0-0.4) X10*3/uL Baso # (Auto) 0.0 (0.0-0.2) X10*3/uL Abs Immat Gran (auto) 0.02 (0.00-0.03) X10*3/uL Absolute Neuts (auto) 3.8 (2.0-8.3) x10*3/uL Absolute Nucleated RBC 0.000 (0.0-0.012) X10*3/uL Nucleated RBC % (auto) 0.0 (0.0-0.2) /100WBC Sodium 139 (135-145) mmol/L Potassium 4.5 (3.3-5.1) mmol/L Chloride 103 (96-108) mmol/L Carbon Dioxide 28 (22-29) mmol/L Anion Gap 13 (12-20) BUN 21 H (9-16) mg/dL Creatinine 0.75 (0.5-1.4) mg/dL Estim Creat Clear Calc 81.9 Estimated GFR > 60 Random Glucose 187 H (60-115) mg/dL Calcium 10.2 (8.4-10.2) mg/dL Magnesium 2.1 (1.6-2.6) mg/dL Total Bilirubin 0.5 (0.0-1.0) mg/dL Direct Bilirubin 0.2 (0.0-0.5) mg/dL AST 138 H (5-31) U/L ALT 547 H (0-31) U/L Alkaline Phosphatase 110 (39-117) U/L Total Protein 7.7 (6.5-8.0) g/dL Albumin 4.1 (3.5-5.0) g/dL Lipase 41 (8-78) U/L Radiology Impression Discussion of test interpretation with radiology: I have reviewed the r adiologist's reading. Radiologist Impression: US/US abdomen complete IMPRESSION: Small gallbladder polyp without any echogenic stones or wall thickening. ? Some of the visualized pancreas and the abdominal aorta. ? Rest of the abdominal ultrasound is unremarkable. Discharge Plan Discharge Clinical Impression: Elevated LFTs Patient Disposition: Home, Self-Care Instructions: Jaundice (ED) Additional Instructions: Do not take Tylenol and cholesterol medicine Do not drink alcohol If you had elevated liver enzymes likely from medication you took Follow-up with PCP to recheck your labs in 3 days And follow-up with Publicity Writer Prescriptions: No Action prochlorperazine maleate [Compazine] 5 mg tablet 5 mg PO BID PRN (Reason: nausea and vomiting) Qty: 10 0RF oxycodone-acetaminophen 5-325 mg tablet 1 tab PO Q6H PRN (Reason: pain) Qty: 5 0RF Rx Instructions: Partial Fill upon patient request. diphenhydramine HCl [Benadryl] 25 mg capsule 25 mg PO BEDTIME gabapentin 300 mg capsule 300 mg PO BEDTIME Humulin 70/30 U-100 KwikPen 100 unit/mL (70-30) insulin pen 48 unit subcut BID cholecalciferol (vitamin D3) 50 mcg (2,000 unit) tablet 50 mcg PO DAILY Farxiga 5 mg tablet 5 mg PO QAM pregabalin 100 mg capsule 100 mg PO TID escitalopram oxalate 5 mg tablet 15 mg PO QAM buspirone 7.5 mg tablet 7.5 mg PO BID amlodipine 5 mg tablet 7.5 mg PO DAILY pravastatin 40 mg tablet 40 mg PO BEDTIME ferrous sulfate 325 mg (65 mg iron) tablet,delayed release (DR/EC) 325 mg PO DAILY omega 9-eqh-bsm-fish oil 300 mg (120 mg- 180mg)-1,000 mg capsule 1 cap PO BID hydrocortisone 2.5 % cream with perineal applicator topical QID PRN miconazole nitrate 2 % cream topical BID diclofenac sodium 1 % gel 2 g topical BID PRN (Reason: pain) (DME) FreeStyle Lite Strips Strip See Rx Instructions .ROUTE TID Qty: 10 Rx Instructions: As directed senna 8.6 mg capsule 8.6 mg PO BEDTIME aspirin [Adult Aspirin Regimen] 81 mg tablet,delayed release (DR/EC) 81 mg PO DAILY omeprazole 20 mg capsule,delayed release(DR/EC) 20 mg PO BID 14 Days Qty: 28 0RF acetaminophen 650 mg tablet extended release 650 mg PO BID PRN (Reason: fever) alcohol swabs [Alcohol Prep Pads] Pads, Medicated 0 pad topical DAILY clarithromycin 500 mg tablet 500 mg PO BID cyclobenzaprine 10 mg tablet 10 mg PO TID PRN (Reason: muscle spasm) Trulicity 0.75 mg/0.5 mL pen injector 0.75 mg subcut QWEEK cetirizine 10 mg tablet 10 mg PO DAILY Referrals: Ranjana Nolan MD [Physician] - 1 week
[2022-09-30 20:15] LABS: MANUAL DIFF FLAG NO
[2022-09-30 20:16] LABS: Basophils Percent Auto 0.4 % (0-2); Eosinophils Absolute Auto 0.4 X10*3/uL (0.0-0.4); Eosinophils Percent Auto 5.2 % (0-4); Hematocrit 42.1 % (37.0-47.0); Hemoglobin 14.1 g/dl (12.0-16.0); Imm Gran Abs Auto 0.02 X10*3/uL (0.00-0.03); Imm Gran Pct Auto 0.3 % (0.0-0.4); Lymphocytes Absolute Auto 2.3 X10*3/uL (1.2-4.9); Lymphocytes Percent Auto 33.3 % (20-40); Mean Corpuscular HGB Conc 33.5 g/dl (31.0-35.0); Mean Corpuscular Hemoglobin 29.7 pg (27.0-33.0); Mean Corpuscular Volume 88.8 fL (80.0-98.0); Monocytes Absolute Auto 0.4 X10*3/uL (0.1-1.2); Monocytes Percent Auto 6.1 % (2-11); Neutrophils Absolute Auto 3.8 x10*3/uL (2.0-8.3); Neutrophils Percent Auto 54.7 % (45-73); Platelet Count 215 X10*3/uL (160-400); Red Blood Count 4.74 X10*6/uL (4.20-5.50); Red Cell Distribution Width 16.2 % (11.0-16.0); White Blood Count 6.9 X10*3/uL (4.8-10.8)
[2022-09-30 20:32] LABS: Alanine Aminotransferase 547 U/L (0-31); Albumin Level 4.1 g/dL (3.5-5.0); Alkaline Phosphatase 110 U/L (39-117); Anion Gap 13 (12-20); Aspartate Amino Transferase 138 U/L (5-31); Bilirubin Direct 0.2 mg/dL (0.0-0.5); Bilirubin Total 0.5 mg/dL (0.0-1.0); Blood Urea Nitrogen 21 mg/dL (9-16); Calcium 10.2 mg/dL (8.4-10.2); Carbon Dioxide 28 mmol/L (22-29); Chloride 103 mmol/L (96-108); Creatinine Clr Calc Pharmacy 81.9; Estimated Glomerular Filt Rate > 60; Glucose Random 187 mg/dL (60-115); Lipase 41 U/L (8-78); Magnesium 2.1 mg/dL (1.6-2.6); Potassium 4.5 mmol/L (3.3-5.1); Sodium 139 mmol/L (135-145); Total Protein 7.7 g/dL (6.5-8.0)
[2022-09-30 21:42] VITALS: BP 151/75; PULSE 72; RESP 18; TEMP 36.7; O2SAT 96
--- NOTE | 2022-09-30 22:18 | PC.NURSE ---
patient in bed with eyes open patient vitals are stable at this time patient stated they were not in any distress at this time
--- NOTE | 2022-09-30 22:53 | PC.NURSE ---
patient in the process of being discharged patient will be given all paperwork patient is aware
[2022-10-01 08:49] LABS: HBsAGNum1 0.28 S/CO (0.00-0.99); Hepatitis B Surface Antigen Negative (Negative); ~Hepatitis B Surface Antibody REACTIVE (Nonreactive)
[2022-10-01 08:59] LABS: HBc Num1 0.11 S/CO (0.00-0.79); HIV AB/AG Nonreactive (Nonreactive); HIV Num 1 0.06 S/CO (0.00-0.99); Hepatitis B Core Antibody Nonreactive (Nonreactive); ~Hepatitis A Antibody IgM Nonreactive (Nonreactive); ~Hepatitis C Antibody Nonreactive (Nonreactive)
== END 2022-09-30 23:01 | disposition home or self-care (01) ==
PROVIDERS: Physician Assistant Medical; Emergency Provider Internal Medicine; PCP Family Medicine
DX: R79.89 Other specified abnormal findings of blood chemistry (principal); E11.9 Type 2 diabetes mellitus without complications; I10 Essential (primary) hypertension; E78.5 Hyperlipidemia, unspecified; Z79.4 Long term (current) use of insulin; Z79.899 Other long term (current) drug therapy; Z79.82 Long term (current) use of aspirin
CPT/HCPCS: 36415; 76700; 80048; 80076; 83690; 83735; 85025; 86704; 86706; 86709; 86803; 87340; 87389; 99284

== ENCOUNTER 2022-10-03 | Emergency (ER) | payer MEDICAID, SELFPAY ==
[2022-10-03 00:06] VITALS: BP 128/88; PULSE 80; RESP 20; TEMP 36.7; O2SAT 98; BMI 33.2
[2022-10-03 01:46] LABS: Appearance Urine Clear; Color Urine Yellow; Glucose Urine UA Negative (Negative); Leukocyte Esterase Urine Moderate (2+) (Negative); Nitrite Urine Negative (Negative); PH 5.5 (5.0-9.0); UMIC TRIGGER UACC YES; Urine Blood Trace (Negative); Urine Ketones Negative (Negative); Urine Protein Negative (Neg-Trace)
--- NOTE | 2022-10-03 01:50 | PC.NURSE ---
pt reported vaginal burning and itching. Seen by PCP was prescribed amoxicillin and macrobid w/o any relief. Pt also reported she has liver issues and unable to take diflucan .
--- NOTE | 2022-10-03 01:53 | ED.FEMALEGU ---
HPI - Female Genitourinary General Chief complaint: Urogenital-Female Stated complaint: Vaginal burning and itch Time Seen by Provider: 10/03/22 01:53 Source: patient Mode of arrival: ambulatory Limitations: no limitations History of Present Illness HPI Narrative: Patient's history UTI on antibiotics taken Macrobid and up and seen here on 10/04 elevated LFT now comes here for vaginal itching. Patient has not taking fluconazole which was misinformed me last time . Patient does take pravastatin which she has stopped taking it. No vaginal discharge no urinary symptoms Related Data Home Medications Medication Instructions Recorded Confirmed diphenhydramine HCl 25 mg capsule 25 mg PO BEDTIME 02/04/20 08/04/22 (Benadryl) gabapentin 300 mg capsule 300 mg PO BEDTIME 02/04/20 08/04/22 amlodipine 5 mg tablet 7.5 mg PO DAILY 03/22/22 08/04/22 buspirone 7.5 mg tablet 7.5 mg PO BID 03/22/22 08/04/22 cholecalciferol (vitamin D3) 50 50 mcg PO DAILY 03/22/22 08/04/22 mcg (2,000 unit) tablet dapagliflozin propanediol 5 mg 5 mg PO QAM 03/22/22 08/04/22 tablet (Farxiga) escitalopram oxalate 5 mg tablet 15 mg PO QAM 03/22/22 08/04/22 ferrous sulfate 325 mg (65 mg 325 mg PO DAILY 03/22/22 08/04/22 iron) tablet,delayed release hydrocortisone 2.5 % topical cream topical QID PRN 03/22/22 08/04/22 with perineal applicator insulin NPH-regular 70-30 U-100 48 unit subcut BID 03/22/22 08/04/22 insulin 100 unit/mL subcutaneous pen (Humulin 70/30 U-100 Alicia) omega-3 300 mg-dha 120 mg-epa 180 1 cap PO BID 03/22/22 08/04/22 mg-fish oil 1,000 mg capsule pravastatin 40 mg tablet 40 mg PO BEDTIME 03/22/22 08/04/22 pregabalin 100 mg capsule 100 mg PO TID 03/22/22 08/04/22 aspirin 81 mg tablet,delayed 81 mg PO DAILY 04/30/22 08/04/22 release (Adult Aspirin Regimen) blood sugar diagnostic (Planbox #10 ea 04/30/22 08/04/22 Lite Strips) diclofenac sodium 1 % topical gel 2 g topical BID PRN pain 04/30/22 08/04/22 miconazole nitrate 2 % topical appl topical BID 04/30/22 08/04/22 cream sennosides 8.6 mg capsule (senna) 8.6 mg PO BEDTIME 04/30/22 08/04/22 acetaminophen 650 mg 650 mg PO BID PRN fever 06/11/22 08/04/22 tablet,extended release alcohol swabs (Alcohol Prep Pads) 0 pad topical DAILY 06/11/22 08/04/22 clarithromycin 500 mg tablet 500 mg PO BID 06/11/22 08/04/22 cyclobenzaprine 10 mg tablet 10 mg PO TID PRN muscle spasm 06/11/22 08/04/22 cetirizine 10 mg tablet 10 mg PO DAILY 09/01/22 dulaglutide 0.75 mg/0.5 mL 0.75 mg subcut QWEEK 09/01/22 [facility] Previous Rx's Medication Instructions Recorded prochlorperazine maleate 5 mg 5 mg PO BID PRN nausea and 04/26/22 tablet (Compazine) vomiting #10 tabs omeprazole 20 mg capsule,delayed 20 mg PO BID 14 days #28 caps 04/30/22 release oxycodone-acetaminophen 5 mg-325 1 tab PO Q6H PRN pain #5 tabs 09/30/22 mg tablet miconazole nitrate 4 % (200 mg)-2 1 appful vaginal BEDTIME 3 days 10/03/22 % (9 gram)vaginal,prefill #24 grams appl,cream (Monistat 3) Allergies Allergy/AdvReac Type Severity Reaction Status Date / Time enalapril [ENALAPRIL] Allergy Unknown UNK Verified 09/30/22 18:02 hydrochlorothiazide Allergy Unknown UNK Verified 09/30/22 18:02 [HYDROCHLOROTHIAZIDE] lisinopril [LISINOPRIL] Allergy Unknown HIVES,THROAT Verified 09/30/22 18:02 SWELLING metoprolol [METOPROLOL] Allergy Unknown UNK Verified 09/30/22 18:02 metronidazole [METRONIDAZOLE] Allergy Unknown UNK Verified 09/30/22 18:02 Oxycodone HCl Allergy Unknown vomiting Uncoded 09/30/22 18:02 Review of Systems Review of Systems: Yes all other systems are reviewed and are negative [facility] Past Medical History Medical History Anxiety Depression Diabetes GERD (gastroesophageal reflux disease) HTN (hypertension) Hyperlipidemia Surgical History History of hand surgery Hx of colonoscopy Family History Family History Maternal Aunt Dialysis patient Hypertension Diabetes Mother Hypertension Diabetes Father Diabetes Hypertension Social History Social History Alcohol intake: never Patient Tobacco Use Status: Never used Tobacco Cigarettes Per Day: 2 Smoked in Last 30 Days: No Use of substances other than those prescribed or required for medical reasons: No Advance Directives: No Advance Directives Information Provided: Yes Patient : No Current occupational status: unemployed Current occupation: right handed Physical Exam Vital Signs: Vital Signs: Last Vital Signs Temp 98.0 F 10/03/22 00:06 Pulse 80 10/03/22 00:06 Resp 20 10/03/22 00:06 BP 128/88 10/03/22 00:06 Pulse Ox 98 10/03/22 00:06 O2 Del Method Room Air 10/03/22 00:06 BMI result Body Mass Index 33.2 Appearance: Alert. Oriented X3. No acute distress. Eyes: PERRLA, No Nystagmus ENT: Pharynx normal. Oral Mucosa moist Neck: Normal inspection. Neck supple. CVS: Normal heart rate and rhythm. Pulses normal. Respiratory: No respiratory distress. Equal air entry bilateral, Abdomen: Soft and nontender. Bowel sounds are present, : slight erythema of vulvar area no vaginal discharge Skin: Skin warm and dry. Normal skin color. Normal skin turgor. Extremities: No lower extremity edema. No calf tenderness Neuro: Oriented X 3. Medications Administered Discontinued Medications Generic Name Dose Route Start Last Admin Trade Name Freq PRN Reason Stop Dose Admin Diphenhydramine HCl 50 mg 10/03/22 02:10 10/03/22 02:20 Diphenhydramine Hcl 25 Mg Capsule PO 10/03/22 02:11 50 mg ONCE ONE Administration Medical Decision Making Medical Decision Making [facility] Narrative: Patient with vulvar yeast infection discharged on Monistat liver enzymes have improved Lab Data [facility] Lab Attestation statement: I reviewed the patient's lab results. Labs: Lab Results 10/03/22 10/03/22 Range/Units 01:40 02:01 Total Bilirubin 0.4 (0.0-1.0) mg/dL Direct Bilirubin 0.1 (0.0-0.5) mg/dL AST 47 H (5-31) U/L ALT 261 H (0-31) U/L Alkaline Phosphatase 95 (39-117) U/L Total Protein 7.2 (6.5-8.0) g/dL Albumin 3.9 (3.5-5.0) g/dL Urine Color Yellow Urine Appearance Clear Urine pH 5.5 (5.0-9.0) Ur Specific [place] 1.010 (1.005-1.025) Urine Protein Negative (Neg-Trace) mg/dL Urine Glucose (UA) Negative (Negative) mg/dL Urine Ketones Negative (Negative) mg/dL Urine Blood Trace H (Negative) Urine Nitrite Negative (Negative) Ur Leukocyte Esterase Moderate (2+) H (Negative) Urine RBC 0-2 (0-2) /HPF Urine WBC 0-5 (0-5) /HPF Ur Squamous Epith Cells 0-2 (0-2) /HPF Urine Bacteria None Seen (None Seen) Hyaline Casts 0-2 (0-2) /LPF Discharge Plan Discharge Clinical Impression: Candidiasis of vulva Patient Disposition: Home, Self-Care Instructions: Yeast Infection (ED) Additional Instructions: Use vaginal suppository as prescribed Follow-up with PCP for further evaluation of elevated liver function Your liver enzymes have improved Use ?vulos vaginales seg?n lo prescrito Seguimiento con PCP para yuridia evaluaci?n adicional de la funci?n hep?michaela elevada Raisa enzimas hep?anjel teresa gabrielle Prescriptions: New miconazole nitrate [Monistat 3] 4 % (200 mg)- 2 % (9 gram) comb pack,prefill appl, cream 1 appful vaginal BEDTIME 3 Days Qty: 24 0RF Rx Instructions: as vaginal cream No Action prochlorperazine maleate [Compazine] 5 mg tablet 5 mg PO BID PRN (Reason: nausea and vomiting) Qty: 10 0RF oxycodone-acetaminophen 5-325 mg tablet 1 tab PO Q6H PRN (Reason: pain) Qty: 5 0RF Rx Instructions: Partial Fill upon patient request. diphenhydramine HCl [Benadryl] 25 mg capsule 25 mg PO BEDTIME gabapentin 300 mg capsule 300 mg PO BEDTIME Humulin 70/30 U-100 KwikPen 100 unit/mL (70-30) insulin pen 48 unit subcut BID cholecalciferol (vitamin D3) 50 mcg (2,000 unit) tablet 50 mcg PO DAILY Farxiga 5 mg tablet 5 mg PO QAM pregabalin 100 mg capsule 100 mg PO TID escitalopram oxalate 5 mg tablet 15 mg PO QAM buspirone 7.5 mg tablet 7.5 mg PO BID amlodipine 5 mg tablet 7.5 mg PO DAILY pravastatin 40 mg tablet 40 mg PO BEDTIME ferrous sulfate 325 mg (65 mg iron) tablet,delayed release (DR/EC) 325 mg PO DAILY omega 1-bgi-bxt-fish oil 300 mg (120 mg- 180mg)-1,000 mg capsule 1 cap PO BID hydrocortisone 2.5 % cream with perineal applicator topical QID PRN miconazole nitrate 2 % cream topical BID diclofenac sodium 1 % gel 2 g topical BID PRN (Reason: pain) (DME) FreeStyle Lite Strips Strip See Rx Instructions .ROUTE TID Qty: 10 Rx Instructions: As directed senna 8.6 mg capsule 8.6 mg PO BEDTIME aspirin [Adult Aspirin Regimen] 81 mg tablet,delayed release (DR/EC) 81 mg PO DAILY omeprazole 20 mg capsule,delayed release(DR/EC) 20 mg PO BID 14 Days Qty: 28 0RF acetaminophen 650 mg tablet extended release 650 mg PO BID PRN (Reason: fever) alcohol swabs [Alcohol Prep Pads] Pads, Medicated 0 pad topical DAILY clarithromycin 500 mg tablet 500 mg PO BID cyclobenzaprine 10 mg tablet 10 mg PO TID PRN (Reason: muscle spasm) Trulicity 0.75 mg/0.5 mL pen injector 0.75 mg subcut QWEEK cetirizine 10 mg tablet 10 mg PO DAILY Print Language: [place]
[2022-10-03 01:57] LABS: Bacteria Urine None Seen (None Seen); Hyaline Casts Urine 0-2 /LPF (0-2); RBC Urine 0-2 /HPF (0-2); Squamous Epithelial Cell Urine 0-2 /HPF (0-2); WBC Urine 0-5 /HPF (0-5)
[2022-10-03] MEDS: diphenhydrAMINE HCL 25 MG CAPSULE 50 MG PO (02:20)
[2022-10-03 02:32] LABS: Alanine Aminotransferase 261 U/L (0-31); Albumin Level 3.9 g/dL (3.5-5.0); Alkaline Phosphatase 95 U/L (39-117); Aspartate Amino Transferase 47 U/L (5-31); Bilirubin Direct 0.1 mg/dL (0.0-0.5); Bilirubin Total 0.4 mg/dL (0.0-1.0); Total Protein 7.2 g/dL (6.5-8.0)
== END 2022-10-03 03:13 | disposition home or self-care (01) ==
PROVIDERS: Emergency Provider Internal Medicine
DX: B37.31 Acute candidiasis of vulva and vagina (principal)
CPT/HCPCS: 36415; 80076; 81001; 99283; 99284

== ENCOUNTER 2022-10-13 13:28 | Outpatient (AMB) | payer MEDICAID, SELFPAY ==
[2022-10-13 13:37] VITALS: BMI 33.1
--- NOTE | 2022-10-13 13:37 | MHC.OFFVIS ---
Intake Vital Signs 10/13/22 13:37 Height 5 ft 1 in Weight 175 lb BMI 33.1 Intake Visit Reasons: PO L MF Trigger Release 09/30/22 AR Intake Note: Maria C 52 yr old female presents today for her P/O left MG trigger release from 09/30/22. Sutures removed and steri applied. Allergies enalapril [ENALAPRIL] Allergy (Unknown, Verified 10/13/22 13:38) UNK hydrochlorothiazide [HYDROCHLOROTHIAZIDE] Allergy (Unknown, Verified 10/13/22 13:38) UNK lisinopril [LISINOPRIL] Allergy (Unknown, Verified 10/13/22 13:38) HIVES,THROAT SWELLING metoprolol [METOPROLOL] Allergy (Unknown, Verified 10/13/22 13:38) UNK metronidazole [METRONIDAZOLE] Allergy (Unknown, Verified 10/13/22 13:38) UNK Oxycodone HCl Allergy (Unknown, Uncoded 10/13/22 13:38) vomiting HPI PO L MF Trigger Release 09/30/22 AR HPI Details 52-year-old female who returns to the office today with an licensed and certified midwife for post-op left middle finger trigger release, 09/30/[address] Freitas. She states she has no pain today and is doing well overall. She has no concerns today. [facility] Medical History Anxiety Depression Diabetes GERD (gastroesophageal reflux disease) HTN (hypertension) Hyperlipidemia Surgical History History of hand surgery Hx of colonoscopy Family History Maternal Aunt Dialysis patient Hypertension Diabetes Mother Hypertension Diabetes Father Diabetes Hypertension Social History Alcohol intake: never Patient Tobacco Use Status: Never used Tobacco Cigarettes Per Day: 2 Current occupational status: unemployed Current occupation: right handed Review of Systems Const All systems reviewed & are unremarkable except as noted in HPI and below Physical Exam Vital Signs: BMI result Body Mass Index 33.1 Extrem Other: Left middle finger: Incision clean, dry and intact. She has no catching or licking, no erythema no drainage. NVI. Assessment & Plan Assessment & Plan (1) Trigger finger, left middle finger: Code(s): M65.332 - Trigger finger, left middle finger Plan Sutures removed today, steri strips applied. She will increase activity as tolerated and if symptoms persist or worsens, patient will contact the office, otherwise follow-up as needed. Patient Instructions: Scribed for Demetrio Barrios PA-C, by Mick Lombardi medical information officer, on 10/13/2022 at 1:30 PM EST. I, Demetrio Barrios PA-C, have personally reviewed and agree with the information entered by the scribe. Coding Level of Care Code Global (34715) Diagnoses Trigger finger, left middle finger M65.332
== END 2022-10-13 13:45 | disposition home or self-care (01) ==
PROVIDERS: PCP Family Medicine; Visit Provider Physician Assistant
DX: M65.332 Trigger finger, left middle finger (principal)
CPT/HCPCS: 99024

== ENCOUNTER → 2022-10-13 13:28 | Outpatient (BNVA) | payer MEDICAID, SELFPAY | PROVIDERS: PCP Family Medicine; Visit Provider Physician Assistant ==

== ENCOUNTER 2022-11-12 12:08 | Outpatient (REF) | payer MEDICAID, SELFPAY ==
[2022-11-12 15:04] LABS: Alanine Aminotransferase 19 U/L (0-31); Albumin Level 4.1 g/dL (3.5-5.0); Alkaline Phosphatase 64 U/L (39-117); Aspartate Amino Transferase 18 U/L (5-31); Bilirubin Direct 0.1 mg/dL (0.0-0.5); Bilirubin Total 0.3 mg/dL (0.0-1.0); Total Protein 7.4 g/dL (6.5-8.0)
== END 2022-11-12 12:09 | disposition home or self-care (01) ==
LOC: HO.HHCL 12:08
PROVIDERS: Visit Provider Family Medicine
DX: E11.9 Type 2 diabetes mellitus without complications (principal); Z79.4 Long term (current) use of insulin
CPT/HCPCS: 36415; 80076

== ENCOUNTER 2022-11-20 15:35 | Emergency (ER) | payer MEDICAID, SELFPAY ==
[2022-11-20 17:08] VITALS: BP 120/68; PULSE 80; RESP 18; TEMP 36.6; O2SAT 98; BMI 33.0
--- NOTE | 2022-11-20 17:14 | ED_ITS ---
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 Patient reports that she has a squirrel that comes to her house every day that she feeds and plays with. She tells me that today while she was feeding it bit her left index finger. She washed the site with bleach, alcohol and applied topical antibiotic ointment after the bite. Patient also would like to be tested for COVID and flu states that she has had a cough for the last few days with no associated fevers, chills, shortness of breath, chest pain, vomiting, diarrhea, abdominal pain, headache, neck pain or neck stiffness, skin rash. Related Data Home Medications Medication Instructions Recorded Confirmed diphenhydramine HCl 25 mg capsule 25 mg PO BEDTIME 02/04/20 08/04/22 (Benadryl) gabapentin 300 mg capsule 300 mg PO BEDTIME 02/04/20 08/04/22 amlodipine 5 mg tablet 7.5 mg PO DAILY 03/22/22 08/04/22 buspirone 7.5 mg tablet 7.5 mg PO BID 03/22/22 08/04/22 cholecalciferol (vitamin D3) 50 50 mcg PO DAILY 03/22/22 08/04/22 mcg (2,000 unit) tablet dapagliflozin propanediol 5 mg 5 mg PO QAM 03/22/22 08/04/22 tablet (Farxiga) escitalopram oxalate 5 mg tablet 15 mg PO QAM 03/22/22 08/04/22 ferrous sulfate 325 mg (65 mg 325 mg PO DAILY 03/22/22 08/04/22 iron) tablet,delayed release hydrocortisone 2.5 % topical cream topical QID PRN 03/22/22 08/04/22 with perineal applicator insulin NPH-regular 70-30 U-100 48 unit subcut BID 03/22/22 08/04/22 insulin 100 unit/mL subcutaneous pen (Humulin 70/30 U-100 Alicia) omega-3 300 mg-dha 120 mg-epa 180 1 cap PO BID 03/22/22 08/04/22 mg-fish oil 1,000 mg capsule pravastatin 40 mg tablet 40 mg PO BEDTIME 03/22/22 08/04/22 pregabalin 100 mg capsule 100 mg PO TID 03/22/22 08/04/22 aspirin 81 mg tablet,delayed 81 mg PO DAILY 04/30/22 08/04/22 release (Adult Aspirin Regimen) blood sugar diagnostic (FreeStyle #10 ea 04/30/22 08/04/22 Lite Strips) diclofenac sodium 1 % topical gel 2 g topical BID PRN pain 04/30/22 08/04/22 miconazole nitrate 2 % topical appl topical BID 04/30/22 08/04/22 cream sennosides 8.6 mg capsule (senna) 8.6 mg PO BEDTIME 04/30/22 08/04/22 acetaminophen 650 mg 650 mg PO BID PRN fever 06/11/22 08/04/22 tablet,extended release alcohol swabs (Alcohol Prep Pads) 0 pad topical DAILY 06/11/22 08/04/22 clarithromycin 500 mg tablet 500 mg PO BID 06/11/22 08/04/22 cyclobenzaprine 10 mg tablet 10 mg PO TID PRN muscle spasm 06/11/22 08/04/22 cetirizine 10 mg tablet 10 mg PO DAILY 09/01/22 dulaglutide 0.75 mg/0.5 mL 0.75 mg subcut QWEEK 09/01/22 subcutaneous pen injector (Trulicity) Previous Rx's Medication Instructions Recorded prochlorperazine maleate 5 mg 5 mg PO BID PRN nausea and 04/26/22 tablet (Compazine) vomiting #10 tabs omeprazole 20 mg capsule,delayed 20 mg PO BID 14 days #28 caps 04/30/22 release oxycodone-acetaminophen 5 mg-325 1 tab PO Q6H PRN pain #5 tabs 09/30/22 mg tablet diphenhydramine HCl 25 mg capsule 25 mg PO TID PRN itching #20 caps 10/03/22 (Benadryl) miconazole nitrate 4 % (200 mg)-2 1 appful vaginal BEDTIME 3 days 10/03/22 % (9 gram)vaginal,prefill #24 grams appl,cream (Monistat 3) amoxicillin 875 mg-potassium 1 tab PO BID #14 tabs 11/20/22 clavulanate 125 mg tablet fluconazole 150 mg tablet 150 mg PO Q3D 2 doses #2 tabs 11/20/22 (Diflucan) Allergies Allergy/AdvReac Type Severity Reaction Status Date / Time enalapril [ENALAPRIL] Allergy Unknown UNK Verified 11/20/22 17:08 hydrochlorothiazide Allergy Unknown UNK Verified 11/20/22 17:08 [HYDROCHLOROTHIAZIDE] lisinopril [LISINOPRIL] Allergy Unknown HIVES,THROAT Verified 11/20/22 17:08 SWELLING metoprolol [METOPROLOL] Allergy Unknown UNK Verified 11/20/22 17:08 metronidazole [METRONIDAZOLE] Allergy Unknown UNK Verified 11/20/22 17:08 Oxycodone HCl Allergy Unknown vomiting Uncoded 11/20/22 17:08 Review of Systems Review of Systems: Yes all other systems are reviewed and are negative Constitutional: Constitutional: Reports no additional constitutional complaints, Denies body ache(s), Denies chills, Denies fever(s), Denies headache(s) and Denies weakness Eyes: Eyes: Reports no additional eye complaints and Denies change in vision ENT: Reports system reviewed and no additional complaints, except as documented, Denies dizziness, Denies headache(s), Denies nasal congestion, Denies nasal discharge and Denies neck pain Cardiovascular: Cardiovascular: Reports no additional cardiovascular complaints, Denies chest pain, Denies leg edema and Denies dyspnea Respiratory: Respiratory: Reports no additional respiratory complaints, Denies cough and Denies dyspnea Gastrointestinal: Gastrointestinal: Reports no additional gastrointestinal complaints, Denies abdominal pain, Denies diarrhea, Denies nausea and Denies vomiting Genitourinary: Genitourinary: Reports no additional female genitourinary complaints and Denies urinary incontinence Musculoskeletal: Musculoskeletal: Reports no additional musculoskeletal comp laints, Denies back pain, Denies arthralgias, Denies joint swelling, Denies neck pain, Denies numbness and Denies tingling Integumentary/Breasts: Skin/Breast: Reports system reviewed and no additional complaints, except as docu, Denies rash and Reports wounds Neurologic: Reports system reviewed and no additional complaints, except as documented, Denies Abnormal speech present, Denies dizziness, Denies headache(s), Denies numbness, Denies tingling and Denies weakness [facility] Past Medical History Attestation statement: The following information was validated with the patient. Source: old records reviewed and nursing notes reviewed Medical History Hyperlipidemia Diabetes GERD (gastroesophageal reflux disease) Depression Anxiety HTN (hypertension) Surgical History Hx of colonoscopy History of hand surgery Family History Family History Maternal Aunt Dialysis patient Hypertension Diabetes Mother Hypertension Diabetes Father Diabetes Hypertension Social History Social History Alcohol intake: never Patient Tobacco Use Status: Never used Tobacco Cigarettes Per Day: 2 Advance Directives: No Advance Directives Information Provided: No Current occupational status: unemployed Current occupation: right handed Physical Exam ED Vital Signs: Vital Signs - 24 hr 11/20/22 17:08 Temperature 98 F Pulse Rate 80 Respiratory Rate 18 Blood Pressure 120/68 Pulse Oximetry 98 Oxygen Delivery Method Room Air BMI result Body Mass Index 33.0 Const General: cooperative, healthy appearing, comfortable and no acute distress Orientation/consciousness: patient oriented x3 Limitations: no limitations HENMT Head: Yes normal to inspection Ears: hearing grossly normal bilaterally General nose exam: Normal external nose present Face and sinus: Yes normal facial exam Mouth: Normal oral and palatal mucosa present Throat: Yes posterior oropharynx normal Eyes General: appearance normal, both eyes and all related structures Pupils: Equal, round and reactive pupils present Neck Neck: Yes normal visual inspection Chest Chest palpation & inspection: normal inspection of the chest Resp Effort & Inspection: normal respiratory effort Auscultation: clear to auscultation bilaterally Cardio Rate: regular rate Rhythm: regular rhythm Peripheral pulses: Peripheral pulses 2+ throughout GI Inspection: Yes normal to inspection Palpation (GI): Soft to palpation and nontender Auscultation: normal bowel sounds Back/Spine/Pelvis Thoracic/Lumbar Spine: thoracic and lumbar spine normal to inspection Skin General skin exam: no rashes or lesions noted Neuro General: patient oriented x3, no focal motor deficits and normal sensation to monofilament Cranial nerves: Yes Equal, round and reactive pupils present Cognition (Neuro): normal cognition Speech: No Abnormal speech present Gait exam (Neuro): Normal gait present Motor exam (neuro): 5/5 motor strength present throughout Extrem Other: To the left hand to the distal aspect of the left 2nd digit over the volar aspect there is a superficial abrasion with no active bleeding with full range of motion both actively and passively. Course Course Course Narrative: Patient complains of squirrel bite to left index finger which happened today This is rapid medical exam in triage to be followed by evaluation in the department Medications Administered Discontinued Medications Generic Name Dose Route Start Last Admin Trade Name Freq PRN Reason Stop Dose Admin Diphtheria/Tetanus/Acell Pertussis 0.5 ml 11/20/22 17:43 11/20/22 18:08 Diphth,Pertus(Acell),Tet Adult 0.5 Ml Syringe IM 11/20/22 17:44 0.5 ml .ONCE ONE Administration Rabies Immune Globulin 1,584 unit 11/20/22 17:43 11/20/22 18:07 Rabies Immune Globulin/Pf 900 Unit/3 Ml Vial 20 unit/kg (1584 unit) 11/20/22 17:44 1,584 unit IM Administration ONCE ONE Rabies Vaccine Human Diploid Cell 1 ml 11/20/22 17:43 11/20/22 18:08 Rabies Vaccine, Human Diploid (Imovax) 1 Ml Vial IM 11/20/22 17:44 1 ml .ONCE ONE Administration Medical Decision Making Medical Decision Making MDM Narrative: 52-year-old female with a history of chronic back pain, anxiety, depression, GERD, DM, HTN presents the ER with complaints of squirrel bite to the left index finger. Patient reports that she has a squirrel that comes to her house every day that she feeds and plays with. She tells me that today while she was feeding it bit her left index finger. She washed the site with bleach, alcohol and applied topical antibiotic ointment after the bite. Patient also would like to be tested for COVID and flu states that she has had a cough for the last few days with no associated fevers, chills, shortness of breath, chest pain, vomiting, diarrhea, abdominal pain, headache, neck pain or neck stiffness, skin rash. To the left hand to the distal aspect of the left 2nd digit over the volar aspect there is a superficial abrasion with no active bleeding with full range of motion both actively and passively. Patient will need rabies series including immunoglobulin, tetanus will need to be updated and she will need to be started on prophylactic antibiotics. Patient also requiring Diflucan as she gets yeast infections with antibiotics Patient will need COVID and flu testing for her URI symptoms. Differential Diagnosis Differential Diagnoses: The differential diagnosis associated with the presentation includes Animal bite viral syndrome Lab Data MDM Lab Attestation statement: I reviewed the patient's lab results. Testing for flu and COVID are negative Labs: Lab Results 11/20/22 Range/Units 17:58 COVID-19 (BETSEY) Negative (Negative) COVID-19 Clin Com See Note Influenza Type A (IRIS) Negative (Negative) Influenza Type B (IRIS) Negative (Negative) Influenza A & B Note See Note Prescription Management I considered prescription management with: Antibiotic Olga bite requiring prophylactic antibiotics prevent cellulitis Discharge Plan Discharge Clinical Impression: Bite by animal Patient Disposition: Home, Self-Care Instructions: Animal Bite (ED) Additional Instructions: testing for flu and COVID are negative. You did receive the rabies vaccine and tetanus vaccine while you are here in the emergency room. Please monitor the bite. Return for increasing redness, swelling, drainage or fever. Las pruebas de gripe y COVID son negativas. Recibi? la vacuna contra la zonia y la vacuna contra el t?tanos mientras estaba aqu? en la genesis de emergencias. Por favor controle la picadura. Regrese si aumenta el enrojecimiento, la hinchaz?n, el drenaje o la fiebre. Prescriptions: New amoxicillin-pot clavulanate 875-125 mg tablet 1 tab PO BID Qty: 14 0RF fluconazole [Diflucan] 150 mg tablet 150 mg PO Q3D Qty: 2 0RF No Action prochlorperazine maleate [Compazine] 5 mg tablet 5 mg PO BID PRN (Reason: nausea and vomiting) Qty: 10 0RF oxycodone-acetaminophen 5-325 mg tablet 1 tab PO Q6H PRN (Reason: pain) Qty: 5 0RF Rx Instructions: Partial Fill upon patient request. miconazole nitrate [Monistat 3] 4 % (200 mg)- 2 % (9 gram) comb pack,prefill appl, cream 1 appful vaginal BEDTIME 3 Days Qty: 24 0RF Rx Instructions: as vaginal cream diphenhydramine HCl [Benadryl] 25 mg capsule 25 mg PO TID PRN (Reason: itching) Qty: 20 0RF diphenhydramine HCl [Benadryl] 25 mg capsule 25 mg PO BEDTIME gabapentin 300 mg capsule 300 mg PO BEDTIME Humulin 70/30 U-100 KwikPen 100 unit/mL (70-30) insulin pen 48 unit subcut BID cholecalciferol (vitamin D3) 50 mcg (2,000 unit) tablet 50 mcg PO DAILY Farxiga 5 mg tablet 5 mg PO QAM pregabalin 100 mg capsule 100 mg PO TID escitalopram oxalate 5 mg tablet 15 mg PO QAM buspirone 7.5 mg tablet 7.5 mg PO BID amlodipine 5 mg tablet 7.5 mg PO DAILY pravastatin 40 mg tablet 40 mg PO BEDTIME ferrous sulfate 325 mg (65 mg iron) tablet,delayed release (DR/EC) 325 mg PO DAILY omega 5-rzf-moa-fish oil 300 mg (120 mg- 180mg)-1,000 mg capsule 1 cap PO BID hydrocortisone 2.5 % cream with perineal applicator topical QID PRN miconazole nitrate 2 % cream topical BID diclofenac sodium 1 % gel 2 g topical BID PRN (Reason: pain) (DME) FreeStyle Lite Strips Strip See Rx Instructions .ROUTE TID Qty: 10 Rx Instructions: As directed senna 8.6 mg capsule 8.6 mg PO BEDTIME aspirin [Adult Aspirin Regimen] 81 mg tablet,delayed release (DR/EC) 81 mg PO DAILY omeprazole 20 mg capsule,delayed release(DR/EC) 20 mg PO BID 14 Days Qty: 28 0RF acetaminophen 650 mg tablet extended release 650 mg PO BID PRN (Reason: fever) alcohol swabs [Alcohol Prep Pads] Pads, Medicated 0 pad topical DAILY clarithromycin 500 mg tablet 500 mg PO BID cyclobenzaprine 10 mg tablet 10 mg PO TID PRN (Reason: muscle spasm) Trulicity 0.75 mg/0.5 mL pen injector 0.75 mg subcut QWEEK cetirizine 10 mg tablet 10 mg PO DAILY Referrals: Angelique Grace DO [Primary Care Provider] - 1 week Print Language: Frisian
[2022-11-20] MEDS: Rabies Immune Globulin/PF 900 UNIT/3 ML VIAL 1584 UNIT IM (18:07)
[2022-11-20] MEDS: Diphth,Pertus(ACell),Tet Adult 0.5 ML SYRINGE IM (18:08)
[2022-11-20] MEDS: Rabies Vaccine, Human Diploid (Imovax) 1 ML VIAL IM (18:08)
[2022-11-20 18:20] LABS: COVID-19 Test Negative (Negative); IDNOW Serial# BCCEAD1C
[2022-11-20 18:25] LABS: IDNOW Serial# 08D9AD1C; Influenza A Negative (Negative); Influenza B2 Negative (Negative)
--- NOTE | 2022-11-20 18:32 | PC.NURSE ---
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
--- NOTE | 2022-11-20 18:36 | PC.NURSE ---
rabies vaccine order set faxed to [facility] and [facility] fax confirmations in blue rabies binder, tetanus updated. VIS provided for rabies and tetanus
== END 2022-11-20 19:02 | disposition home or self-care (01) ==
PROVIDERS: Nurse Practitioner Family; Emergency Provider Emergency Medicine Emergency Medical Services; PCP Family Medicine
DX: S60.471A Other superficial bite of left index finger, initial encounter (principal); W53.21XA Bitten by squirrel, initial encounter; R05.9 Cough, unspecified; Z20.822 Contact with and (suspected) exposure to COVID-19; Z20.3 Contact with and (suspected) exposure to rabies; E11.9 Type 2 diabetes mellitus without complications; I10 Essential (primary) hypertension; E78.5 Hyperlipidemia, unspecified; Z87.891 Personal history of nicotine dependence; Z79.4 Long term (current) use of insulin; Z79.899 Other long term (current) drug therapy; Y93.89 Activity, other specified; Y92.038 Other place in apartment as the place of occurrence of the external cause; Y99.9 Unspecified external cause status
CPT/HCPCS: 87502; 87635; 90375; 90471; 90675; 90715; 96372; 99282; 99284

== ENCOUNTER 2022-11-23 14:56 | Outpatient (REF) | payer MEDICAID, SELFPAY | END 2022-11-23 14:57 | disposition home or self-care (01) | LOC: HO.MDS 14:56 | PROVIDERS: Visit Provider Nurse Practitioner Family | DX: Z20.3 Contact with and (suspected) exposure to rabies (principal); S61.251D Open bite of left index finger without damage to nail, subsequent encounter; W64.XXXD Exposure to other animate mechanical forces, subsequent encounter | CPT/HCPCS: 90471; 90675 ==

== ENCOUNTER 2022-11-29 13:59 | Outpatient (REF) | payer MEDICAID, SELFPAY | END 2022-11-29 14:00 | disposition home or self-care (01) | LOC: HO.MDS 13:59 | PROVIDERS: Visit Provider Nurse Practitioner Family | DX: Z20.3 Contact with and (suspected) exposure to rabies (principal); S61.259D Open bite of unspecified finger without damage to nail, subsequent encounter; W64.XXXD Exposure to other animate mechanical forces, subsequent encounter | CPT/HCPCS: 90471; 90675 ==

== ENCOUNTER 2022-12-06 14:06 | Outpatient (REF) | payer MEDICAID, SELFPAY | END 2022-12-06 14:07 | disposition home or self-care (01) | LOC: HO.MDS 14:06 | PROVIDERS: Visit Provider Nurse Practitioner Family | DX: Z20.3 Contact with and (suspected) exposure to rabies (principal); S61.251D Open bite of left index finger without damage to nail, subsequent encounter; W53.21XD Bitten by squirrel, subsequent encounter | CPT/HCPCS: 90471; 90675 ==

== ENCOUNTER 2022-12-13 15:33 | Emergency (ER) | payer MEDICAID, SELFPAY ==
--- NOTE | ~2022-12-13 | XR_ITS ---
EXAMINATION: XR CHEST CLINICAL INFORMATION: Chest pain COMPARISON: 04/26/2022 TECHNIQUE: Frontal view of the chest was obtained. FINDINGS: No significant abnormality is noted involving the heart, lungs, mediastinum, bony thorax or soft tissues. XR/XR chest 1V IMPRESSION: Unremarkable examination.
[2022-12-13 15:36] VITALS: BP 124/72; BP 125/48; PULSE 68; PULSE 79; RESP 18; TEMP 36.9; O2SAT 100; O2SAT 98; BMI 32.5
--- NOTE | 2022-12-13 15:45 | ECG_ITS ---
Test Reason : chest pain Blood Pressure : / mmHG Vent. Rate : 069 BPM Atrial Rate : 069 BPM P-R Int : 152 ms QRS Dur : 098 ms QT Int : 426 ms P-R-T Axes : 031 -16 018 degrees QTc Int : 456 ms Sinus rhythm with occasional Premature ventricular complexes Minimal voltage criteria for LVH, may be normal variant ( Real product ) Borderline ECG When compared with ECG of 19-AUG-2020 19:52, Criteria for Anteroseptal infarct are no longer Present ST no longer depressed in Anterior leads Referred By: Jerilyn Lim Electronically Signed By:NEELAM AVENDANO
--- NOTE | 2022-12-13 15:53 | ED_ITS ---
HPI - Chest Pain General Chief Complaint: Chest Pain Stated Complaint: CP X 2 DAYS L ARM NUMBNESS YESTERDAY Time Seen by Provider: 12/13/22 15:43 Source: patient, EMS and spanish interpreter Mode of arrival: EMS Limitations: no limitations History of Present Illness HPI narrative: A 52-year-old female speaking only came in for evaluation for chest pain. Patient was seen at her PCP's office for left-sided chest pain started about 5 days ago when she received mother news after a cardiac surgery, patient described the left-sided chest pain as a constant pain for the last 5 days, pain is radiating to the left shoulder and the upper left arm, yesterday patient felt numbness in a 4th and 5th fingers that is resolved now. no lower extremities swelling or tenderness, no hx of dvt or PE. Related Data Home Medications Medication Instructions Recorded Confirmed diphenhydramine HCl 25 mg capsule 25 mg PO BEDTIME 02/04/20 08/04/22 (Benadryl) gabapentin 300 mg capsule 300 mg PO BEDTIME 02/04/20 08/04/22 amlodipine 5 mg tablet 7.5 mg PO DAILY 03/22/22 08/04/22 buspirone 7.5 mg tablet 7.5 mg PO BID 03/22/22 08/04/22 cholecalciferol (vitamin D3) 50 50 mcg PO DAILY 03/22/22 08/04/22 mcg (2,000 unit) tablet dapagliflozin propanediol 5 mg 5 mg PO QAM 03/22/22 08/04/22 tablet (Farxiga) escitalopram oxalate 5 mg tablet 15 mg PO QAM 03/22/22 08/04/22 ferrous sulfate 325 mg (65 mg 325 mg PO DAILY 03/22/22 08/04/22 iron) tablet,delayed release hydrocortisone 2.5 % topical cream topical QID PRN 03/22/22 08/04/22 with perineal applicator insulin NPH-regular 70-30 U-100 48 unit subcut BID 03/22/22 08/04/22 insulin 100 unit/mL subcutaneous pen (Humulin 70/30 U-100 Alicia) omega-3 300 mg-dha 120 mg-epa 180 1 cap PO BID 03/22/22 08/04/22 mg-fish oil 1,000 mg capsule pravastatin 40 mg tablet 40 mg PO BEDTIME 03/22/22 08/04/22 pregabalin 100 mg capsule 100 mg PO TID 03/22/22 08/04/22 aspirin 81 mg tablet,delayed 81 mg PO DAILY 04/30/22 08/04/22 release (Adult Aspirin Regimen) blood sugar diagnostic (FreeStyle #10 ea 04/30/22 08/04/22 Lite Strips) diclofenac sodium 1 % topical gel 2 g topical BID PRN pain 04/30/22 08/04/22 miconazole nitrate 2 % topical appl topical BID 04/30/22 08/04/22 cream sennosides 8.6 mg capsule (senna) 8.6 mg PO BEDTIME 04/30/22 08/04/22 acetaminophen 650 mg 650 mg PO BID PRN fever 06/11/22 08/04/22 tablet,extended release alcohol swabs (Alcohol Prep Pads) 0 pad topical DAILY 06/11/22 08/04/22 clarithromycin 500 mg tablet 500 mg PO BID 06/11/22 08/04/22 cyclobenzaprine 10 mg tablet 10 mg PO TID PRN muscle spasm 06/11/22 08/04/22 cetirizine 10 mg tablet 10 mg PO DAILY 09/01/22 dulaglutide 0.75 mg/0.5 mL 0.75 mg subcut QWEEK 09/01/22 subcutaneous pen injector (Trulicity) Previous Rx's Medication Instructions Recorded prochlorperazine maleate 5 mg 5 mg PO BID PRN nausea and 04/26/22 tablet (Compazine) vomiting #10 tabs omeprazole 20 mg capsule,delayed 20 mg PO BID 14 days #28 caps 04/30/22 release oxycodone-acetaminophen 5 mg-325 1 tab PO Q6H PRN pain #5 tabs 09/30/22 mg tablet diphenhydramine HCl 25 mg capsule 25 mg PO TID PRN itching #20 caps 10/03/22 (Benadryl) miconazole nitrate 4 % (200 mg)-2 1 appful vaginal BEDTIME 3 days 10/03/22 % (9 gram)vaginal,prefill #24 grams appl,cream (Monistat 3) amoxicillin 875 mg-potassium 1 tab PO BID #14 tabs 11/20/22 clavulanate 125 mg tablet fluconazole 150 mg tablet 150 mg PO Q3D 2 doses #2 tabs 11/20/22 (Diflucan) Allergies Allergy/AdvReac Type Severity Reaction Status Date / Time enalapril [ENALAPRIL] Allergy Unknown UNK Verified 11/20/22 17:08 hydrochlorothiazide Allergy Unknown UNK Verified 11/20/22 17:08 [HYDROCHLOROTHIAZIDE] lisinopril [LISINOPRIL] Allergy Unknown HIVES,THROAT Verified 11/20/22 17:08 SWELLING metoprolol [METOPROLOL] Allergy Unknown UNK Verified 11/20/22 17:08 metronidazole [METRONIDAZOLE] Allergy Unknown UNK Verified 11/20/22 17:08 Oxycodone HCl Allergy Unknown vomiting Uncoded 11/20/22 17:08 Review of Systems 2 Review of Systems: all other systems are reviewed and are negative Constitutional: Reports as per HPI and Reports no additional constitutional complaints Eyes: Reports as per HPI and Reports no additional eye complaints Reports system reviewed and no additional complaints, except as documented Cardiovascular: Reports as per HPI and Reports no additional cardiovascular complaints Respiratory: Reports as per HPI and Reports no additional respiratory complaints Gastrointestinal: Reports as per HPI and Reports no additional gastrointestinal complaints Genitourinary: Reports no additional female genitourinary complaints Musculoskeletal: Reports no additional musculoskeletal complaints Skin/Breast: Reports system reviewed and no additional complaints, except as docu Psychiatric: Reports no additional psychiatric complaints Endocrine: Reports no additional endocrine complaints Hematologic/Lymphatic: Reports no additional hematologic/lymphatic complaints Allergic/Immunologic: Reports no additional allergic/immunologic complaints Reports system reviewed and no additional complaints, except as documented and Reports Abnormal speech present PMFSH Past Medical History Medical History Hyperlipidemia Diabetes GERD (gastroesophageal reflux disease) Depression Anxiety HTN (hypertension) Surgical History Hx of colonoscopy History of hand surgery Family History Family History Maternal Aunt Dialysis patient Hypertension Diabetes Mother Hypertension Diabetes Father Diabetes Hypertension Social History Social History Alcohol intake: never Patient Tobacco Use Status: Never used Tobacco Cigarettes Per Day: 2 Smoked in Last 30 Days: No Use of substances other than those prescribed or required for medical reasons: No Advance Directives: No Advance Directives Information Provided: No Current occupational status: unemployed Current occupation: right handed Physical Exam 2 Vital Signs: Vital Signs: Last Vital Signs Temp 98.3 F 12/13/22 16:05 Pulse 67 12/13/22 16:05 Resp 20 12/13/22 16:05 BP 142/76 H 12/13/22 16:05 Pulse Ox 100 12/13/22 16:05 O2 Del Method Room Air 12/13/22 16:05 BMI result Body Mass Index 32.5 Vital signs have been reviewed and appear to be correct. Blood pressure elevated. Heart rate normal. Respiratory rate normal. Temperature normal. Oxygen saturation normal. Appearance: tearful during the exam, Alert. Oriented X3. No acute distress. Head: Normal external exam. Normocephalic. Atraumatic. No Galloway signs noted. No raccoon eyes noted Eyes: PERRLA. EOMI. Conjunctiva and sclera normal. Eyelids normal. ENT: TM's Normal. Pharynx normal. Uvula midline. Moist mucous membranes. No trismus noted. No drooling noted. No muffled voice noted. Neck: Normal inspection. Neck supple. FROM. No adenopathy. Thyroid Normal. No meningeal signs. No neck mass noted. CVS: Normal heart rate and rhythm. Heart sound normal. No murmurs noted. Pulses normal throughout. Respiratory: No respiratory distress. Painless inspiration. Breath sounds normal. No wheezes/rales/rhonchi noted. Chest nontender. No accessory muscle usage noted or decreased air movement noted. Abdomen: Soft and nontender. Bowel sounds normal in all 4 quadrants. No distention noted. No organomegaly noted. No visible injury noted. Back: No CVA tenderness. Full range of motion noted. Skin: Skin warm and dry. Normal skin color. Normal skin turgor. No rashes/lesions/lacerations noted. Extremities: No lower extremity edema. Extremities exhibit normal range of motion. Extremities nontender. Neuro: Oriented X 3. Cranial nerve exam: II-XII are grossly intact No motor deficit. No sensory deficit. Patient Orientation: Person, Place, Time and Situation, okay hygiene and grooming. Fair eye contact, attentive, no tics or tremors. Level of Consciousness: Awake, Appropriate and Alert Patient Behavior: Appropriate, Guarded, Cooperative and Anxious Mood Description: Constricted, Blunted and Apprehensive Affect Description: Constricted, Blunted and Apprehensive Patient Cognition Impaired: No Ability to Follow Directions: Excellent Speech Pattern: Clear, Appropriate and Spontaneous Speech, nonpressured, spontaneous with regular rate and rhythm, normal volume and prosody. No dysarthria. Memory Description: Intact, Immediate Intact and Short Term Intact Hallucinations: None Delusions: Not Present Thought Process: Intact Thought Content: positive for Intact, positive for Logical, denies Suicidal Ideation and denies Homicidal Ideation. Depressive Symptoms: Not present. Judgement and Insight: Limited but adequate. Course Course Course Narrative: 52-year-old female is in grief after mother's , patient's symptoms is likely secondary to been sad and grieving, no SI or HI, D-dimer is unremarkable and troponin is negative with unremarkable EKG will discharge the patient with reassurance El Medical Decision Making Differential Diagnosis Differential Diagnoses: The differential diagnosis associated with the presentation includes ( normal grief reaction, ACS, electrolyte abnormality, severe anemia.) Lab Data MDM Lab Attestation statement: I reviewed the patient's lab results. 12/13/22 16:06 12/13/22 16:06 Labs: Lab Results 12/13/22 12/13/22 Range/Units 16:06 16:12 WBC 7.6 (4.8-10.8) X10*3/uL RBC 4.18 L (4.20-5.50) X10*6/uL Hgb 12.7 (12.0-16.0) g/dl Hct 37.0 (37.0-47.0) % MCV 88.5 (80.0-98.0) fL MCH 30.4 (27.0-33.0) pg MCHC 34.3 (31.0-35.0) g/dl RDW 13.0 (11.0-16.0) % Plt Count 192 (160-400) X10*3/uL MPV 11.4 (9.4-12.3) fL Immature Gran % (Auto) 0.3 (0.0-0.4) % Neut % (Auto) 51.3 (45-73) % Lymph % (Auto) 33.3 (20-40) % Coleman % (Auto) 5.4 (2-11) % Eos % (Auto) 9.2 H (0-4) % Baso % (Auto) 0.5 (0-2) % Lymph # (Auto) 2.5 (1.2-4.9) X10*3/uL Coleman # (Auto) 0.4 (0.1-1.2) X10*3/uL Eos # (Auto) 0.7 H (0.0-0.4) X10*3/uL Baso # (Auto) 0.0 (0.0-0.2) X10*3/uL Abs Immat Gran (auto) 0.02 (0.00-0.03) X10*3/uL Absolute Neuts (auto) 3.9 (2.0-8.3) x10*3/uL Absolute Nucleated RBC 0.000 (0.0-0.012) X10*3/uL Nucleated RBC % (auto) 0.0 (0.0-0.2) /100WBC D-Dimer High Sensitivty < 150 NG/ML Sodium 136 (135-145) mmol/L Potassium 3.9 (3.3-5.1) mmol/L Chloride 105 (96-108) mmol/L Carbon Dioxide 23 (22-29) mmol/L Anion Gap 12 (12-20) BUN 16 (9-16) mg/dL Creatinine 0.88 (0.5-1.4) mg/dL Estim Creat Clear Calc 70.6 Estimated GFR > 60 Random Glucose 242 H (60-115) mg/dL Calcium 9.5 D (8.4-10.2) mg/dL Total Bilirubin 0.4 (0.0-1.0) mg/dL Direct Bilirubin 0.2 (0.0-0.5) mg/dL AST 23 (5-31) U/L ALT 21 (0-31) U/L Alkaline Phosphatase 48 (39-117) U/L Troponin I High Sens < 2.7 (<3.5-17.0) ng/L B-Natriuretic Peptide 11 (<100) pg/mL Total Protein 7.4 (6.5-8.0) g/dL Albumin 4.1 (3.5-5.0) g/dL Lipase 42 (8-78) U/L Urine Color Yellow Urine Appearance Cloudy Urine pH 6.0 (5.0-9.0) Ur Specific [place] 1.020 (1.005-1.025) Urine Protein Negative (Neg-Trace) mg/dL Urine Glucose (UA) 100 H (Negative) mg/dL Urine Ketones Negative (Negative) mg/dL Urine Blood Negative (Negative) Urine Nitrite Negative (Negative) Ur Leukocyte Esterase Moderate (2+) H (Negative) Urine RBC 0-2 (0-2) /HPF Urine WBC 11-20 H (0-5) /HPF Ur Squamous Epith Cells 11-20 (0-2) /HPF Urine Bacteria 2+ (None Seen) Hyaline Casts 0-2 (0-2) /LPF Independent Interpretation I performed an independent interpretation of an: EKG ( Normal sinus rhythm with occasional PVCs at rate of 70, LVH, no ST-T changes.) and Plain X-Ray ( Unremarkable chest x-ray.) Radiology Impression Discussion of test interpretation with radiology: I have reviewed the radiologist's reading. Discharge Plan Discharge Clinical Impression: Grief reaction Patient Disposition: Home, Self-Care Instructions: Grief and Loss (ED) Prescriptions: No Action prochlorperazine maleate [Compazine] 5 mg tablet 5 mg PO BID PRN (Reason: nausea and vomiting) Qty: 10 0RF oxycodone-acetaminophen 5-325 mg tablet 1 tab PO Q6H PRN (Reason: pain) Qty: 5 0RF Rx Instructions: Partial Fill upon patient request. amoxicillin-pot clavulanate 875-125 mg tablet 1 tab PO BID Qty: 14 0RF fluconazole [Diflucan] 150 mg tablet 150 mg PO Q3D Qty: 2 0RF miconazole nitrate [Monistat 3] 4 % (200 mg)- 2 % (9 gram) comb pack,prefill appl, cream 1 appful vaginal BEDTIME 3 Days Qty: 24 0RF Rx Instructions: as vaginal cream diphenhydramine HCl [Benadryl] 25 mg capsule 25 mg PO TID PRN (Reason: itching) Qty: 20 0RF diphenhydramine HCl [Benadryl] 25 mg capsule 25 mg PO BEDTIME gabapentin 300 mg capsule 300 mg PO BEDTIME Humulin 70/30 U-100 KwikPen 100 unit/mL (70-30) insulin pen 48 unit subcut BID cholecalciferol (vitamin D3) 50 mcg (2,000 unit) tablet 50 mcg PO DAILY Farxiga 5 mg tablet 5 mg PO QAM pregabalin 100 mg capsule 100 mg PO TID escitalopram oxalate 5 mg tablet 15 mg PO QAM buspirone 7.5 mg tablet 7.5 mg PO BID amlodipine 5 mg tablet 7.5 mg PO DAILY pravastatin 40 mg tablet 40 mg PO BEDTIME ferrous sulfate 325 mg (65 mg iron) tablet,delayed release (DR/EC) 325 mg PO DAILY omega 7-cbx-aaa-fish oil 300 mg (120 mg- 180mg)-1,000 mg capsule 1 cap PO BID hydrocortisone 2.5 % cream with perineal applicator topical QID PRN miconazole nitrate 2 % cream topical BID diclofenac sodium 1 % gel 2 g topical BID PRN (Reason: pain) (DME) FreeStyle Lite Strips Strip See Rx Instructions .ROUTE TID Qty: 10 Rx Instructions: As directed senna 8.6 mg capsule 8.6 mg PO BEDTIME aspirin [Adult Aspirin Regimen] 81 mg tablet,delayed release (DR/EC) 81 mg PO DAILY omeprazole 20 mg capsule,delayed release(DR/EC) 20 mg PO BID 14 Days Qty: 28 0RF acetaminophen 650 mg tablet extended release 650 mg PO BID PRN (Reason: fever) alcohol swabs [Alcohol Prep Pads] Pads, Medicated 0 pad topical DAILY clarithromycin 500 mg tablet 500 mg PO BID cyclobenzaprine 10 mg tablet 10 mg PO TID PRN (Reason: muscle spasm) Trulicity 0.75 mg/0.5 mL pen injector 0.75 mg subcut QWEEK cetirizine 10 mg tablet 10 mg PO DAILY
[2022-12-13 16:05] VITALS: BP 142/76; PULSE 67; RESP 20; TEMP 36.8; O2SAT 100
--- NOTE | 2022-12-13 16:09 | MHC.EDTECH ---
PATIENT CAME IN VIA EMS ,EKG TAKEN AND WAS READ BY PROVIDER ,BLOOD DRAWN AND SENT TO LAB ,PATIENT WAS HOOKED UP TO HOOF TRIMMER ,VITALS SIGN TAKEN ,PT RESTING QUIETLY IN BED .
[2022-12-13 16:11] LABS: MANUAL DIFF FLAG NO
--- NOTE | 2022-12-13 16:14 | MHC.EDTECH ---
patient urine sample collected and sent to lab .
[2022-12-13 16:18] LABS: Basophils Percent Auto 0.5 % (0-2); Eosinophils Absolute Auto 0.7 X10*3/uL (0.0-0.4); Eosinophils Percent Auto 9.2 % (0-4); Hemoglobin 12.7 g/dl (12.0-16.0); Imm Gran Abs Auto 0.02 X10*3/uL (0.00-0.03); Imm Gran Pct Auto 0.3 % (0.0-0.4); Lymphocytes Absolute Auto 2.5 X10*3/uL (1.2-4.9); Lymphocytes Percent Auto 33.3 % (20-40); Mean Corpuscular HGB Conc 34.3 g/dl (31.0-35.0); Mean Corpuscular Hemoglobin 30.4 pg (27.0-33.0); Mean Corpuscular Volume 88.5 fL (80.0-98.0); Mean Platelet Volume 11.4 fL (9.4-12.3); Monocytes Absolute Auto 0.4 X10*3/uL (0.1-1.2); Monocytes Percent Auto 5.4 % (2-11); Neutrophils Absolute Auto 3.9 x10*3/uL (2.0-8.3); Neutrophils Percent Auto 51.3 % (45-73); Platelet Count 192 X10*3/uL (160-400); Red Blood Count 4.18 X10*6/uL (4.20-5.50); White Blood Count 7.6 X10*3/uL (4.8-10.8)
[2022-12-13 16:20] LABS: Appearance Urine Cloudy; Color Urine Yellow; Glucose Urine UA 100 mg/dL (Negative); Leukocyte Esterase Urine Moderate (2+) (Negative); Nitrite Urine Negative (Negative); UMIC TRIGGER UACC YES; Urine Blood Negative (Negative); Urine Ketones Negative (Negative); Urine Protein Negative (Neg-Trace)
[2022-12-13 16:32] LABS: Alanine Aminotransferase 21 U/L (0-31); Albumin Level 4.1 g/dL (3.5-5.0); Alkaline Phosphatase 48 U/L (39-117); Anion Gap 12 (12-20); Aspartate Amino Transferase 23 U/L (5-31); Bilirubin Direct 0.2 mg/dL (0.0-0.5); Bilirubin Total 0.4 mg/dL (0.0-1.0); Blood Urea Nitrogen 16 mg/dL (9-16); Calcium 9.5 mg/dL (8.4-10.2); Carbon Dioxide 23 mmol/L (22-29); Chloride 105 mmol/L (96-108); Creatinine Clr Calc Pharmacy 70.6; Estimated Glomerular Filt Rate > 60; Glucose Random 242 mg/dL (60-115); Lipase 42 U/L (8-78); Potassium 3.9 mmol/L (3.3-5.1); Sodium 136 mmol/L (135-145); Total Protein 7.4 g/dL (6.5-8.0)
[2022-12-13 16:33] LABS: B Type Natriuretic Peptide 11 pg/mL (<100)
[2022-12-13 16:34] LABS: Bacteria Urine 2+ (None Seen); Hyaline Casts Urine 0-2 /LPF (0-2); RBC Urine 0-2 /HPF (0-2); UACC Culture Trigger YES
[2022-12-13 16:36] LABS: D Dimer High Sensitivity < 150 NG/ML
[2022-12-13 16:41] LABS: Troponin-I High Sensitivity < 2.7 ng/L (<3.5-17.0)
[2022-12-13 17:02] VITALS: BP 131/80; PULSE 67; RESP 16; TEMP 36.8; O2SAT 98
[2022-12-13] MEDS: Ibuprofen 200 MG TABLET PO (17:46)
== END 2022-12-13 17:56 | disposition home or self-care (01) ==
PROVIDERS: Emergency Provider Emergency Medicine
DX: R07.89 Other chest pain (principal); R20.0 Anesthesia of skin; F43.20 Adjustment disorder, unspecified; R06.02 Shortness of breath; Z79.899 Other long term (current) drug therapy
CPT/HCPCS: 36415; 71045; 80048; 80076; 81001; 83690; 83880; 84484; 85025; 85379; 87086; 93005; 99283; 99285

== ENCOUNTER 2023-01-04 12:59 | Outpatient (AMB) | payer MEDICAID, SELFPAY ==
[2023-01-04 13:05] VITALS: BP 130/72; PULSE 78; BMI 32.5
--- NOTE | 2023-01-04 13:05 | MHC.OFFVIS ---
Intake Vital Signs 01/04/23 13:05 Height 5 ft 1 in Weight 171 lb 15.369 oz BMI 32.5 BP 130/72 Pulse 78 Pulse Source Pulse Oximeter Intake Visit Reasons: c f/[place] [facility] [place] pain [employer] Required: Yes [employer] Language: Director Packaging Name: indra harmon [id number] Allergies enalapril [ENALAPRIL] Allergy (Unknown, Verified 01/04/23 13:09) UNK hydrochlorothiazide [HYDROCHLOROTHIAZIDE] Allergy (Unknown, Verified 01/04/23 13:09) UNK lisinopril [LISINOPRIL] Allergy (Unknown, Verified 01/04/23 13:09) HIVES,THROAT SWELLING metoprolol [METOPROLOL] Allergy (Unknown, Verified 01/04/23 13:09) UNK metronidazole [METRONIDAZOLE] Allergy (Unknown, Verified 01/04/23 13:09) UNK Oxycodone HCl Allergy (Unknown, Uncoded 11/20/22 17:08) vomiting Medication List - Last Reconciled 01/04/23 by ITALO Rich acetaminophen ER 650 mg PO BID PRN alcohol swabs (Alcohol Prep Pads) 0 pad topical DAILY amlodipine 7.5 mg PO DAILY aspirin (Adult Aspirin Regimen) 81 mg PO DAILY blood sugar diagnostic (FreeStyle Lite Strips) As directed buspirone 10 mg PO BID cetirizine 10 mg PO DAILY cholecalciferol (vitamin D3) 50 mcg PO DAILY cyclobenzaprine 10 mg PO TID PRN dapagliflozin propanediol (Farxiga) 5 mg PO QAM diclofenac sodium 1% 2 grams topical BID PRN diphenhydramine HCl (Benadryl) 25 mg PO TID PRN dulaglutide (Trulicity) 0.75 mg subcut QWEEK escitalopram oxalate 15 mg PO QAM ferrous sulfate 325 mg PO DAILY fluconazole (Diflucan) 150 mg PO Q3D 2 doses gabapentin 300 mg PO BEDTIME hydrocortisone 2.5% topical QID PRN insulin NPH and regular human 100 unit/mL (70-30) (Humulin 70/30 U-100 KwikPen) 48 units subcut BID miconazole nitrate (Monistat 3) 1 appful vaginal BEDTIME 3 days miconazole nitrate 2% appl topical BID omega 3-fcf-obk-fish oil 300 mg (120 mg- 180mg)-1,000 mg 1 cap PO BID omeprazole 20 mg PO BID 14 days pravastatin 40 mg PO BEDTIME pregabalin 100 mg PO TID prochlorperazine maleate (Compazine) 5 mg PO BID PRN sennosides (senna) 8.6 mg PO BEDTIME HPI [facility] [place] f/u HPI Details Maria C is a 52-year-old female with past medical history of hypertension, hyperlipidemia, diabetes, nonobstructive coronary disease who was recently seen in the emergency room for chest discomfort. She ruled out for ACS. She was instructed to follow back up with Cardiology. Today she presents for follow-up, last prior visit to our office was 04/19/2019. Today she reports that she has been getting left-sided chest discomfort since her mother in November. Her mother following cardiac surgery. She is vague in describing this symptom but seems to state that it has been continual, worse at times. No known aggravating or alleviating factors. Not worse with deep inspiration or movement of her body. No shortness of breath, palpitations, presyncope, syncope, PND, orthopnea or edema. She uses a stationary bike at home and does not get worsening of her symptom. 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 [facility] Medical History (Updated 01/04/23 @ 14:13 by Jeny Gupta NP-Augusto) Hyperlipidemia Diabetes GERD (gastroesophageal reflux disease) Depression Anxiety HTN (hypertension) Surgical History (Updated 01/04/23 @ 13:44 by Jeny Gupta NP-C) Hx of colonoscopy History of hand surgery Family History Maternal Aunt Dialysis patient Hypertension Diabetes Mother Hypertension Diabetes Father Diabetes Hypertension Social History Alcohol intake: never Patient Tobacco Use Status: Never used Tobacco Cigarettes Per Day: 2 Current occupational status: unemployed Current occupation: right handed Review of Systems Const All systems reviewed & are unremarkable except as noted in HPI and below ENT Denies dizziness Card Reports chest pain, Reports chest pain at rest, Denies chest pain with activity, Denies rapid heart rate, Denies pedal edema, Denies edema, Denies leg edema, Denies lightheadedness, Denies palpitations, Denies dyspnea, Denies dyspnea on exertion and Denies orthopnea Resp Denies cough, Denies dyspnea and Denies dyspnea on exertion GI Denies hematochezia and Denies change in stool character Musc Denies abnormal gait, Denies limited range of motion, Denies muscle cramps, Denies muscle weakness, Denies numbness, Denies radiating pain into limb, Denies stiffness and Denies tingling Neuro Denies abnormal gait, Denies dizziness, Denies numbness and Denies tingling Endo Denies palpitations Physical Exam Vital Signs: BMI result Body Mass Index 32.5 Const General: cooperative, healthy appearing, comfortable and no acute distress Orientation/consciousness: patient oriented x3 Neck Neck: Yes normal visual inspection Resp Effort & Inspection: normal respiratory effort Auscultation: clear to auscultation bilaterally, no crackles, no rales, no rhonchi and no wheezes Cardio Jugular venous distension: no JVD Rate: regular rate Rhythm: regular rhythm Heart sounds: S1 normal heart sound present, S2 normal heart sound present, no murmurs and no rubs Neuro General: patient oriented x3 Extrem General: Yes normal to inspection, No no pedal edema and No calf tenderness Psych Appearance: grossly normal Mental Status: mental status grossly normal Speech and movement: Normal speech and movement present Assessment & Plan Assessment & Plan (1) Chest discomfort: Code(s): R07.89 - Other chest pain Plan: Reports of left-sided chest discomfort which has been continual since November following the of her mother. She does indicate that it is worse at sometimes than others. No known aggravating or alleviating factors. Chest pain not worse with exertion. Overall atypical for angina. She does have multiple cardiac risk factors including hypertension, hyperlipidemia and diabetes. She has a known history of nonobstructive coronary artery disease with cardiac catheterization in 2011 showing left circumflex proximal ostial 40% stenosis. Recent ER evaluation for this symptom and she ruled out for ACS. EKG showed sinus rhythm with no acute ST or T-wave abnormalities. Troponin levels were normal. She tells me she is able to walk on a treadmill. Will order an exercise stress test to evaluate for ischemia. Will order echocardiogram to assess for structural heart disease, wall motion abnormalities. Continue aspirin 81 mg daily, pravastatin 40 mg daily. Signs and symptoms of angina reviewed. Emergency care if needed for symptoms. Cardiology follow-up in 6-8 weeks, sooner if needed. (2) Coronary arteriosclerosis: Code(s): I25.10 - Atherosclerotic heart disease of [place] coronary artery without angina pectoris Plan: Known history of nonobstructive coronary disease. (3) Hx of cardiac cath: Comment: 03/01/2012, left circumflex proximal ostial 40% stenosis, left main catheter-induced spasm, relieved with nitroglycerin. Code(s): Z98.890 - Other specified postprocedural states (4) HTN (hypertension): Code(s): I10 - Essential (primary) hypertension Qualifiers: Hypertension type: primary hypertension Qualified Code(s): I10 - Essential (primary) hypertension Plan: Well controlled at present time. No med changes made. Continue amlodipine (5) Hyperlipidemia: Code(s): E78.5 - Hyperlipidemia, unspecified Plan: [place] LDL goal less than 70. Labs done 09/29/2022 showed LDL 99. At present continue pravastatin. Plan to change to atorvastatin next visit. Orders: Orders CA echo transthoracic complete Today I10 - Essential (primary) hypertension, R07.89 - Other chest pain CA stress test Today R07.89 - Other chest pain Coding Level of Care Code Est Pt Level 4 (38445) Diagnoses Chest discomfort R07.89 Coronary arteriosclerosis I25.10 Hx of cardiac cath Z98.890 Primary hypertension I10 Hypertension type: primary hypertension Hyperlipidemia E78.5 Time Spent (min) 26
== END 2023-01-04 13:45 | disposition home or self-care (01) ==
PROVIDERS: Visit Provider Nurse Practitioner Family
DX: R07.89 Other chest pain (principal); I25.10 Atherosclerotic heart disease of native coronary artery without angina pectoris; Z98.890 Other specified postprocedural states; I10 Essential (primary) hypertension; E78.5 Hyperlipidemia, unspecified
CPT/HCPCS: 99214

== ENCOUNTER → 2023-01-04 12:59 | Outpatient (BNVA) | payer MEDICAID, SELFPAY | PROVIDERS: Visit Provider Nurse Practitioner Family | DX: I25.10 Atherosclerotic heart disease of native coronary artery without angina pectoris (principal); I10 Essential (primary) hypertension; R07.89 Other chest pain; E78.5 Hyperlipidemia, unspecified; Z98.890 Other specified postprocedural states | CPT/HCPCS: 99212 ==

== ENCOUNTER 2023-01-10 | Outpatient (REF) | payer MEDICAID, SELFPAY | END 2023-01-10 00:01 | disposition home or self-care (01) | LOC: HO.LNP | PROVIDERS: Visit Provider Nurse Practitioner Family | DX: N30.01 Acute cystitis with hematuria (principal) | CPT/HCPCS: 87086; 87088; 87186 ==

== ENCOUNTER 2023-01-19 14:11 | Outpatient (REF) | payer MEDICAID, SELFPAY ==
[2023-01-19 16:33] LABS: Estimated Average Glucose 169 mg/dL; Hemoglobin A1c % 7.5 % (<6.0)
== END 2023-01-19 14:12 | disposition home or self-care (01) ==
LOC: HO.HHCL 14:11
PROVIDERS: Visit Provider Family Medicine
DX: E11.9 Type 2 diabetes mellitus without complications (principal); Z79.4 Long term (current) use of insulin
CPT/HCPCS: 36415; 83036

== ENCOUNTER → 2023-02-07 08:46 | Outpatient (REF) | payer MEDICAID, SELFPAY ==
--- NOTE | 2023-02-07 08:49 | CA_ITS ---
Acquisition Time: 2023-02-07 09:46:38 Total Exercise Time: 00:08:58 Test Indications: Chest Pain Medications: SEE H Protocol: TRUDY Max HR: 118 BPM 70% of Pred: 168 BPM Max BP: 128/080 mmHG Max Work Load: 10.4 METS Exercise stress test exercise 8 min 58 sec of Trudy protocol achieving 71% MPHR, without anginal symptoms, with isolated PVCs, with BP resting 120/70, Max BP 128/80, heart rate slow to rise, without EKG changes. Test reviewed with Dr. Bruno Referred By: Jeny Gupta Overread By: Pamela Mills
--- NOTE | 2023-02-07 08:49 | CA_ITS ---
Transthoracic Echocardiogram Patient (Last, First, Middle): Maria C Lewis, Gender: Female Date of : 1970 Age: 52 Procedure Date: 02/07/2023 Procedure Type: Transthoracic Echocardiogram Location: OP Height: 154.94 cm Weight: 78.02 kg BSA: 1.77 m2 Heart Rate: 71 bpm BP: 138 / 85 mmHg Grocery Checker: JESSY Roe MD: Jeny Gupta BAR SUPERVISOR-C Splash Line Operator: Murtaza Bruno MD Symptoms: R07.89 - Other chest pain Study Quality: Fair ECG Rhythm: Arrhythmia Conclusions: - 1. Normal LV ejection fraction 55-60% 2. Mild mitral regurgitation 3. Normal RV systolic pressure 4. No gross pericardial effusion Findings Left Ventricle Normal left ventricular size, thickness, and systolic function. The visually estimated ejection fraction is between 55-60%. Spectral Doppler is indicative of a normal filling pattern. Peak GLS is -17.6%, borderline normal. Right Ventricle Normal right ventricular cavity size and systolic function. Atria Both atria are normal in size. Interatrial shunt cannot be excluded. Aortic Valve The aortic valve structure and function is likely normal. There is no aortic valve stenosis. There is no aortic valve regurgitation. Mitral Valve There is mild anterior and posterior mitral leaflet thickening. There is mild mitral valve regurgitation. There is no mitral valve stenosis. Pulmonic Valve The pulmonic valve is likely normal. There is trace pulmonic valve regurgitation. Tricuspid Valve Normal tricuspid valve structure. There is trace tricuspid valve regurgitation. The right ventricular systolic pressure is normal. The right ventricular systolic pressure is 17 mmHg. Normal right atrial pressure. There is no evidence of pulmonary hypertension. Great Vessels The pulmonary artery was not well visualized. Venous The inferior vena cava is normal in size and collapses greater than 50% with inspiration. Pericardium/Pleural There is no evidence of pericardial effusion. Prior Study Comparison No significant change compared to prior study dated: 01/31/2018. Measurements 2D Linear Measurements IVSd: 0.99 0.6-0.9/0.6-1.0 cm LVIDd: 3.97 3.9-5.3/4.2-5.9 cm LVIDd Index: 2.24 2.4-3.2/2.2-3.1 cm/m2 LVIDs: 2.59 2.0-3.6 cm LVPWd: 0.90 0.7-1.1 cm LA Diam: 3.80 2.7-3.8/3.0-4.0 cm LAIDs Index: 2.15 1.5-2.3 cm/m2 LV Mass: 144.96 67-162/88-224 g LV Mass Index: 81.90 43-95/49-115 g/m2 LVOT Diam: 1.80 3.0+(-)1.3 cm 2D Systolic Function EF 4C: 59.70 >55% EF 2C: 56.10 >55% EF BiP: 58.50 >55% Mitral Valve MV Pk E: 1.20 MV PK A: 1.00 MV Decel Time: 210.00 E/A: 1.20 E'Lateral: 8.59 E'Medial: 4.24 E/E' Med: 28.30 E/E' Lat: 14.00 PHT: 62.00 MVA PHT: 3.55 Decel [place]: 5.72 Aortic Valve AoV Pk Marco Antonio: 1.22 AoV Mn Marco Antonio: 0.91 AoV VTI: 0.28 AoV Pk Grad: 6.00 Aov Mn Grad: 4.00 KAYLEIGH Cont.VTI: 1.74 LVOT LVOT Pk Marco Antonio: 0.87 LVOT Mn Marco Antonio: 0.59 LVOT VTI: 0.19 LVOT Pk Grad: 3.00 LVOT Mn Grad: 2.00 LVOT Diam: 1.80 LVOT Area: 2.54 Diastolic Function MV Pk E: 1.20 MV Pk A: 1.00 E/A: 1.20 E'Medial: 4.24 E/E' Med: 28.30 E' Laterial: 8.59 E/E' Lat: 14.00 Right Ventricle TAPSE (mm): 24.20 TVS' Marco Antonio: 12.40 Tricuspid Valve TR Pk Marco Antonio: 1.89 TR Pk Grad: 14.00 RA Press: 3.00 RVSP: 17.00 Great Vessels Aorta Sinus of Valsalva: 3.30 2.0-3.5 cm Ao Asc: 3.50 2.1-3.4 cm Pulmonary Valve PV Pk Marco Antonio: 0.98 Peak PV Grad: 4.00 Updated in Other Vendor System with Status of Final Murtaza Bruno MD electronically signed on 02/07/2023 5:14:21 PM with status of Final
== END ==
LOC: HO.CARD 08:46
PROVIDERS: PCP Family Medicine; Visit Provider Nurse Practitioner Family
DX: R07.89 Other chest pain (principal); I10 Essential (primary) hypertension
CPT/HCPCS: 93017; 93306; 93356

== ENCOUNTER → 2023-02-07 08:49 | Outpatient (BNV) | payer MEDICAID, SELFPAY | PROVIDERS: PCP Family Medicine; Visit Provider Nurse Practitioner | DX: I34.0 Nonrheumatic mitral (valve) insufficiency (principal); R07.89 Other chest pain | CPT/HCPCS: 93016; 93018; 93306 ==

== ENCOUNTER 2023-02-15 09:44 | Outpatient (REF) | payer MEDICAID, SELFPAY ==
[2023-02-15 10:59] LABS: TSH reflex Free T4 0.37 uIU/mL (0.32-4.0)
[2023-02-15 11:04] LABS: Erythrocyte Sedimentation Rate 16 MM/HR (0-20)
[2023-02-17 00:53] LABS: Triiodothyronine T3 Total 112 ng/dL (76-181)
[2023-02-21 15:03] LABS: Calcitonin <2 pg/mL (<=5)
== END 2023-02-15 09:45 | disposition home or self-care (01) ==
LOC: HO.HHCL 09:44
PROVIDERS: Visit Provider Internal Medicine
DX: M54.2 Cervicalgia (principal)
CPT/HCPCS: 36415; 82308; 84443; 84480; 85652

== ENCOUNTER 2023-02-19 16:02 | Emergency (ER) | payer MEDICAID, SELFPAY ==
--- NOTE | ~2023-02-19 | XR_ITS ---
EXAMINATION: XR KNEE, RIGHT CLINICAL INFORMATION: Fall pain COMPARISON: Right knee radiograph from 04/28/2022 TECHNIQUE: Four views of the right knee. FINDINGS: No acute visible fracture or dislocation. Mild narrowing of the lateral femorotibial compartment. Slight enthesopathy at the quadriceps tendon insertion site. Joint space alignment are otherwise maintained. Trace knee joint effusion. Soft tissues are unremarkable. XR/XR knee RT 3V IMPRESSION: 1. No acute visible fracture or dislocation. 2. Mild narrowing of the lateral femorotibial compartment. 3. Slight enthesopathy at the quadriceps tendon insertion site. 4. Trace knee joint effusion.
--- NOTE | ~2023-02-19 | CT_ITS ---
EXAMINATION: CT HEAD WITHOUT CONTRAST CLINICAL INFORMATION: Fall. Hit head. Headache. COMPARISON: CT head from 01/21/2022. TECHNIQUE: Contiguous axial imaging was performed from the skull base to vertex without intravenous administration of contrast. This CT examination was performed using dose optimization techniques as appropriate, variously including the following: *Automated exposure control. *Adjustment of mA and/or kV according to patient size (this includes techniques or standardized protocols for targeted exams where dose is matched to indication/reason for exam; i.e. extremities or head). *Use of iterative reconstruction technique. DLP: 612 mGy-cm FINDINGS: There is no evidence of acute intracranial hemorrhage or edematous territorial infarction. Moore-white matter differentiation is preserved. There is no abnormal attenuation within the brain parenchyma. The ventricles are normal in morphology and size. No evidence for obstructive hydrocephalus. No abnormal mass effect or midline shift. No extra-axial fluid collections. No acute soft tissue or osseous abnormalities. The mastoid air cells and visualized paranasal sinuses are clear. CT/CT head/brain wo IV con IMPRESSION: No evidence of acute intracranial hemorrhage or edematous territorial infarction.
--- NOTE | ~2023-02-19 | XR_ITS ---
EXAMINATION: XR LUMBOSACRAL SPINE CLINICAL INFORMATION: Fall pain COMPARISON: Lumbar spine radiograph from 05/21/2020 TECHNIQUE: Three views of the lumbosacral spine. FINDINGS: 5 nonrib-bearing lumbar-type vertebral bodies. No acute visible fracture or dislocation. Mild multilevel degenerative changes with osteophyte formation lower lumbar spine facet arthropathy. Vertebral body heights and disc spaces are maintained. Posterior elements are intact. Paraspinal soft tissues are unremarkable. FECAL loading of the colon. Pelvic phleboliths are noted. XR/XR lumbar spine 2-3V IMPRESSION: 1. No acute visible fracture or dislocation. 2. Mild multilevel degenerative changes.
[2023-02-19 16:30] VITALS: BP 103/73; PULSE 93; RESP 17; TEMP 37.3; O2SAT 99; BMI 32.1
--- NOTE | 2023-02-19 16:30 | ED_ITS ---
HPI - Back Pain/Injury General Chief Complaint: Fall Stated Complaint: fell 02/18 lower back pain Time Seen by Provider: 02/19/23 17:06 Source: patient and director of social services Mode of arrival: ambulatory Limitations: language barrier History of Present Illness HPI Narrative: Patient is a 52 year old assigned female at with a history of CAD, HTN, and DM presenting to the emergency department today with right knee, left back, and head pain after a fall. Patient states that yesterday she had a trip and fall, landing directly on the right knee. Patient states that she hit her head but did not have any loss of consciousness. Patient denies any dizziness, lightheadedness, abdominal pain, nausea, vomiting, fever, chills, blurry vision, double vision, loss of vision, chest pain, difficulty breathing, shortness of breath, night sweats, pain with urination, increased urinary frequency, increased urinary urgency, blood in her urine or stool, syncope or a near syncopal episode, bowel incontinence, bladder incontinence, bowel retention, bladder retention, or any other complaints at this time. MD elicited complaint: fall Onset (ago): day(s) (1) Exacerbating factors: movement Relieving factors: none Related Data Home Medications Medication Instructions Recorded Confirmed gabapentin 300 mg capsule 300 mg PO BEDTIME 02/04/20 01/04/23 amlodipine 5 mg tablet 7.5 mg PO DAILY 03/22/22 01/04/23 cholecalciferol (vitamin D3) 50 50 mcg PO DAILY 03/22/22 01/04/23 mcg (2,000 unit) tablet dapagliflozin propanediol 5 mg 5 mg PO QAM 03/22/22 01/04/23 tablet (Farxiga) escitalopram oxalate 5 mg tablet 15 mg PO QAM 03/22/22 01/04/23 ferrous sulfate 325 mg (65 mg 325 mg PO DAILY 03/22/22 01/04/23 iron) tablet,delayed release hydrocortisone 2.5 % topical cream topical QID PRN 03/22/22 01/04/23 with perineal applicator insulin NPH-regular 70-30 U-100 48 unit subcut BID 03/22/22 01/04/23 insulin 100 unit/mL subcutaneous pen (Humulin 70/30 U-100 Alicia) omega-3 300 mg-dha 120 mg-epa 180 1 cap PO BID 03/22/22 01/04/23 mg-fish oil 1,000 mg capsule pravastatin 40 mg tablet 40 mg PO BEDTIME 03/22/22 01/04/23 pregabalin 100 mg capsule 100 mg PO TID 03/22/22 01/04/23 aspirin 81 mg tablet,delayed 81 mg PO DAILY 04/30/22 01/04/23 release (Adult Aspirin Regimen) blood sugar diagnostic (FreeStyle #10 ea 04/30/22 01/04/23 Lite Strips) diclofenac sodium 1 % topical gel 2 g topical BID PRN pain 04/30/22 01/04/23 miconazole nitrate 2 % topical appl topical BID 04/30/22 01/04/23 cream sennosides 8.6 mg capsule (senna) 8.6 mg PO BEDTIME 04/30/22 01/04/23 acetaminophen 650 mg 650 mg PO BID PRN fever 06/11/22 01/04/23 tablet,extended release alcohol swabs (Alcohol Prep Pads) 0 pad topical DAILY 06/11/22 01/04/23 cyclobenzaprine 10 mg tablet 10 mg PO TID PRN muscle spasm 06/11/22 01/04/23 cetirizine 10 mg tablet 10 mg PO DAILY 09/01/22 01/04/23 dulaglutide 0.75 mg/0.5 mL 0.75 mg subcut QWEEK 09/01/22 01/04/23 subcutaneous pen injector (Trulicity) buspirone 10 mg tablet 10 mg PO BID 01/04/23 01/04/23 Previous Rx's Medication Instructions Recorded prochlorperazine maleate 5 mg 5 mg PO BID PRN nausea and 04/26/22 tablet (Compazine) vomiting #10 tabs omeprazole 20 mg capsule,delayed 20 mg PO BID 14 days #28 caps 04/30/22 release diphenhydramine HCl 25 mg capsule 25 mg PO TID PRN itching #20 caps 10/03/22 (Benadryl) miconazole nitrate 4 % (200 mg)-2 1 appful vaginal BEDTIME 3 days 10/03/22 % (9 gram)vaginal,prefill #24 grams appl,cream (Monistat 3) fluconazole 150 mg tablet 150 mg PO Q3D 2 doses #2 tabs 11/20/22 (Diflucan) cyclobenzaprine 5 mg tablet 5 mg PO TID PRN muscle spasm 7 02/19/23 days #21 tabs Allergies Allergy/AdvReac Type Severity Reaction Status Date / Time enalapril [ENALAPRIL] Allergy Unknown UNK Verified 01/04/23 13:09 hydrochlorothiazide Allergy Unknown UNK Verified 01/04/23 13:09 [HYDROCHLOROTHIAZIDE] lisinopril [LISINOPRIL] Allergy Unknown HIVES,THROAT Verified 01/04/23 13:09 SWELLING metoprolol [METOPROLOL] Allergy Unknown UNK Verified 01/04/23 13:09 metronidazole [METRONIDAZOLE] Allergy Unknown UNK Verified 01/04/23 13:09 Oxycodone HCl Allergy Unknown vomiting Uncoded 11/20/22 17:08 Review of Systems Constitutional: Constitutional: Reports no additional constitutional complaints, Denies chills, Denies fever(s), Reports headache(s) and Denies night sweats Eyes: Eyes: Reports no additional eye complaints, Denies blurry vision, Denies change in vision, Denies diplopia, Denies eye discharge, Denies loss of vision and Denies eye pain ENT: Denies dizziness and Reports headache(s) Cardiovascular: Cardiovascular: Reports no additional cardiovascular complaints, Denies chest pain, Denies lightheadedness, Denies Loss of Consciousness and Denies dyspnea Respiratory: Respiratory: Reports no additional respiratory complaints and Denies dyspnea Gastrointestinal: Gastrointestinal: Reports no additional gastrointestinal complaints, Denies abdominal pain, Denies melena, Denies hematochezia, Denies change in bowel habits and Denies change in stool character Genitourinary: Genitourinary: Denies hematuria, Denies urinary frequency, Denies dysuria, Denies urinary incontinence, Denies urinary hesitancy and Denies urinary urgency Musculoskeletal: Musculoskeletal: Reports no additional musculoskeletal complaints, Reports back pain, Denies numbness and Denies tingling Comments: right knee pain Neurologic: Denies dizziness, Reports headache(s), Denies loss of vision, Denies numbness and Denies tingling Psychiatric: Psychiatric: Reports no additional psychiatric complaints Endocrine: Endocrine: Reports no additional endocrine complaints Hematologic/Lymphatic: Hematologic/Lymphatic: Reports no additional hematologic/lymphatic complaints Allergic/Immunologic: Allergic/Immunologic: Reports no additional allergic/immunologic complaints PMFSH Past Medical History Attestation statement: The following information was validated with the patient. Source: old records reviewed and nursing notes reviewed Medical History Chest discomfort Nausea CAD (coronary artery disease) Right hand pain Numbness and tingling in left hand Trigger finger, right Hyperlipidemia Diabetes GERD (gastroesophageal reflux disease) Depression Anxiety HTN (hypertension) Surgical History Hx of colonoscopy History of hand surgery Family History Family History Maternal Aunt Dialysis patient Hypertension Diabetes Mother Hypertension Diabetes Father Diabetes Hypertension Social History Social History Alcohol intake: never Patient Tobacco Use Status: Never used Tobacco Cigarettes Per Day: 2 Advance Directives: No Advance Directives Information Provided: No Current occupational status: unemployed Current occupation: right handed Physical Exam Vital Signs: Vital Signs: Last Vital Signs Temp 99.2 F 02/19/23 16:30 Pulse 93 02/19/23 16:30 Resp 17 02/19/23 16:30 BP 103/73 02/19/23 16:30 Pulse Ox 99 02/19/23 16:30 O2 Del Method Room Air 02/19/23 16:30 BMI result Body Mass Index 32.1 Const: General: cooperative, no acute distress, alert and awake Nutritional Appearance: well nourished Orientation/consciousness: patient oriented x3 Limitations: no limitations HEENT: Head: Yes normal to inspection and Yes atraumatic Ears: hearing grossly normal bilaterally and external ears normal General nose exam: Normal external nose present, no nasal discharge noted and no epistaxis Face and sinus: Yes normal facial exam, No abrasion and No laceration Mouth: Normal oral and palatal mucosa present, no drooling and no muffled voice Eyes: General: appearance normal, both eyes and all related structures Periorbital: periorbital findings normal Eyelids: Yes eyelids normal Conjunctivae: conjunctivae normal Pupils: Equal, round and reactive pupils present EOM: EOMs intact bilaterally Neck: Neck: Yes normal visual inspection, Yes full ROM and Yes no lymphadenopathy Chest: Chest palpation & inspection: normal inspection of the chest Resp: Effort & Inspection: normal respiratory effort and able to speak in complete sentences GI: Inspection: Yes normal to inspection Neuro: General: patient oriented x3 and moves all extremities Cranial nerves: Yes Equal, round and reactive pupils present Cognition (Neuro): normal cognition Motor exam (neuro): 5/5 motor strength present throughout Sensory Exam: Normal double simultaneous stimulation for sensation Computer Console Operator rdination: [id number] test normal Extrem: General: Yes normal to inspection, Yes full ROM and Yes capillary refill normal Psych: Appearance: grossly normal Mental Status: mental status grossly normal Affect: normal affect Attitude: cooperative Thought process: Normal thought process present Thought content: Normal thought content present Insight: Good insight present (Psych) Course Course Course Narrative: This is a rapid medical exam. Deferred additional HPI, ROS, PE to primary provider. 52-year-old female with a history of chronic back pain, anxiety, depression, GERD, DM, HTN here with complaints of knee giving out on her yesterday causing pain to her knee and lower back, headache. +hit head. No LOC. No AC therapy use. Will obtain x-rays, CT head. VSS Medications Administered Discontinued Medications Generic Name Dose Route Start Last Admin Trade Name Ovi PRN Reason Stop Dose Admin Cyclobenzaprine HCl 5 mg 02/19/23 17:35 02/19/23 18:12 Cyclobenzaprine Hcl 5 Mg Tablet PO 02/19/23 17:36 5 mg ONCE ONE Administration Ketorolac Tromethamine 15 mg 02/19/23 17:35 02/19/23 18:11 Ketorolac Tromethamine 15 Mg/Ml Vial IM 02/19/23 17:36 15 mg ONCE ONE Administration Medical Decision Making Medical Decision Making [facility] Narrative: Patient is a 52 year old assigned female at with a history of HTN, CAD, and DM presenting to the emergency department today with low back pain, knee pain, and head pain after a fall. Patient's physical exam was unremarkable. Patient's right knee and lumbar x-rays showed no acute process. Patient's head CT showed no acute process. I explained my physical exam findings as well as all test results to the patient and the patient's . I answered all questions asked by the patient and the patient's . I stressed the importance of the patient taking her medication as prescribed. I stressed the importance of the patient following up with her primary care provider. I stressed the importance of the patient returning to the emergency department immediately if her symptoms were to worsen or if she were to develop any dizziness, shortness of breath, difficulty breathing, chest pain, blurry vision, loss of vision, nausea, vomiting, abdominal pain, fever, chills, back pain, or any other complaints. Patient and the patient's verbalized agreement and understanding with this treatment plan and discharge. Differential Diagnosis Differential Diagnoses: The differential diagnosis associated with the presentation includes Fall Low back pain Knee pain Admission/Observation Consideration of admission/observation: Escalation of care including admission/observation considered Patient would have been admitted to the hospital had her work up had any findings where hospital admission was appropriate and her clinical presentation warranted hospital admission. Independent Interpretation I performed an independent interpretation of an: Plain X-Ray and CT Scan Interpretation: My interpretation is in agreement with the radiologist's impression of these imaging studies. EXAMINATION: CT HEAD WITHOUT CONTRAST CLINICAL INFORMATION: Fall. Hit head. Headache. COMPARISON: CT head from 01/21/2022. TECHNIQUE: Contiguous axial imaging was performed from the skull base to vertex without intravenous administration of contrast. This CT examination was performed using dose optimization techniques as appropriate, variously including the following: *Automated exposure control. *Adjustment of mA and/or kV according to patient size (this includes techniques or standardized protocols for targeted exams where dose is matched to indication/reason for exam; i.e. extremities or head). *Use of iterative reconstruction technique. DLP: 612 mGy-cm FINDINGS: There is no evidence of acute intracranial hemorrhage or edematous territorial infarction. Moore-white matter differentiation is preserved. There is no abnormal attenuation within the brain parenchyma. The ventricles are normal in morphology and size. No evidence for obstructive hydrocephalus. No abnormal mass effect or midline shift. No extra-axial fluid collections. No acute soft tissue or osseous abnormalities. The mastoid air cells and visualized paranasal sinuses are clear. CT/CT head/brain wo IV con IMPRESSION: No evidence of acute intracranial hemorrhage or edematous territorial infarction. Dictated By: Tam Martinez DO Signed By: Electronically signed by Tam Martinez DO 02/19/23 1738 EXAMINATION: XR KNEE, RIGHT CLINICAL INFORMATION: Fall pain COMPARISON: Right knee radiograph from 04/28/2022 TECHNIQUE: Four views of the right knee. FINDINGS: No acute visible fracture or dislocation. Mild narrowing of the lateral femorotibial compartment. Slight enthesopathy at the quadriceps tendon insertion site. Joint space alignment are otherwise maintained. Trace knee joint effusion. Soft tissues are unremarkable. XR/XR knee RT 3V IMPRESSION: 1. No acute visible fracture or dislocation. 2. Mild narrowing of the lateral femorotibial compartment. 3. Slight enthesopathy at the quadriceps tendon insertion site. 4. Trace knee joint effusion Dictated By: fEren Hazel MD Signed By: Electronically signed by Efren Hazel MD 02/19/23 1817 EXAMINATION: XR LUMBOSACRAL SPINE CLINICAL INFORMATION: Fall pain COMPARISON: Lumbar spine radiograph from 05/21/2020 TECHNIQUE: Three views of the lumbosacral spine. FINDINGS: 5 nonrib-bearing lumbar-type vertebral bodies. No acute visible fracture or dislocation. Mild multilevel degenerative changes with osteophyte formation lower lumbar spine facet arthropathy. Vertebral body heights and disc spaces are maintained. Posterior elements are intact. Paraspinal soft tissues are unremarkable. FECAL loading of the colon. Pelvic phleboliths are noted. XR/XR lumbar spine 2-3V IMPRESSION: 1. No acute visible fracture or dislocation. 2. Mild multilevel degenerative changes. Dictated By: Efren Hazel MD Signed By: Electronically signed by Efren Hazel MD 02/19/23 721 Radiology Impression Discussion of test interpretation with radiology: I have reviewed the radiologist's reading. Independent Historian Clinical information obtained from an independent historian. History obtained from or confirmed by: Spouse (patient's provided additional history and confirmed the history provided by the patient.) Chronic Conditions Patient?s care impacted by: Diabetes and Hypertension Discharge Plan Discharge Clinical Impression: Fall, Contusion Patient Disposition: Home, Self-Care Instructions: Fall Prevention (ED), Hematoma (ED) Additional Instructions: Follow up with your primary care provider. Return to the emergency department immediately if your symptoms worsen or if you develop any dizziness, shortness of breath, difficulty breathing, chest pain, blurry vision, loss of vision, nausea, vomiting, abdominal pain, fever, chills, back pain, or any other complaints. Latia un seguimiento con camarillo proveedor de atenci?n primaria. Regrese al departamento de emergencias inmediatamente si nile s?ntomas empeoran o si presenta mareos, dificultad para respirar, dificultad para respirar, dolor en el pecho, visi?n borrosa, p?rdida de la visi?n, n?useas, v?mitos, dolor abdominal, fiebre, escalofr?os, dolor de espalda o cualquier otras quejas. Prescriptions: New cyclobenzaprine 5 mg tablet 5 mg PO TID PRN (Reason: muscle spasm) 7 Days Qty: 21 0RF No Action prochlorperazine maleate [Compazine] 5 mg tablet 5 mg PO BID PRN (Reason: nausea and vomiting) Qty: 10 0RF fluconazole [Diflucan] 150 mg tablet 150 mg PO Q3D Qty: 2 0RF miconazole nitrate [Monistat 3] 4 % (200 mg)- 2 % (9 gram) comb pack,prefill appl, cream 1 appful vaginal BEDTIME 3 Days Qty: 24 0RF Rx Instructions: as vaginal cream diphenhydramine HCl [Benadryl] 25 mg capsule 25 mg PO TID PRN (Reason: itching) Qty: 20 0RF gabapentin 300 mg capsule 300 mg PO BEDTIME Humulin 70/30 U-100 KwikPen 100 unit/mL (70-30) insulin pen 48 unit subcut BID cholecalciferol (vitamin D3) 50 mcg (2,000 unit) tablet 50 mcg PO DAILY Farxiga 5 mg tablet 5 mg PO QAM pregabalin 100 mg capsule 100 mg PO TID escitalopram oxalate 5 mg tablet 15 mg PO QAM amlodipine 5 mg tablet 7.5 mg PO DAILY pravastatin 40 mg tablet 40 mg PO BEDTIME ferrous sulfate 325 mg (65 mg iron) tablet,delayed release (DR/EC) 325 mg PO DAILY omega 7-zyh-kcm-fish oil 300 mg (120 mg- 180mg)-1,000 mg capsule 1 cap PO BID hydrocortisone 2.5 % cream with perineal applicator topical QID PRN miconazole nitrate 2 % cream topical BID diclofenac sodium 1 % gel 2 g topical BID PRN (Reason: pain) (DME) FreeStyle Lite Strips Strip See Rx Instructions .ROUTE TID Qty: 10 Rx Instructions: As directed senna 8.6 mg capsule 8.6 mg PO BEDTIME aspirin [Adult Aspirin Regimen] 81 mg tablet,delayed release (DR/EC) 81 mg PO DAILY omeprazole 20 mg capsule,delayed release(DR/EC) 20 mg PO BID 14 Days Qty: 28 0RF acetaminophen 650 mg tablet extended release 650 mg PO BID PRN (Reason: fever) alcohol swabs [Alcohol Prep Pads] Pads, Medicated 0 pad topical DAILY cyclobenzaprine 10 mg tablet 10 mg PO TID PRN (Reason: muscle spasm) Trulicity 0.75 mg/0.5 mL pen injector 0.75 mg subcut QWEEK cetirizine 10 mg tablet 10 mg PO DAILY buspirone 10 mg tablet 10 mg PO BID Referrals: Angelique Grace DO [Primary Care Provider] - Print Language: Tongan
[2023-02-19] MEDS: Ketorolac Tromethamine 15 MG/ML VIAL IM (18:11)
[2023-02-19] MEDS: Cyclobenzaprine HCl 5 MG TABLET PO (18:12)
[2023-02-19] MEDS: HYDROmorphone HCl 1 MG/ML SYRINGE IM (18:53)
== END 2023-02-19 19:00 | disposition home or self-care (01) ==
PROVIDERS: Emergency Provider Internal Medicine; PCP Family Medicine
DX: S80.01XA Contusion of right knee, initial encounter (principal); S00.93XA Contusion of unspecified part of head, initial encounter; W01.0XXA Fall on same level from slipping, tripping and stumbling without subsequent striking against object, initial encounter; Y93.9 Activity, unspecified; Y92.9 Unspecified place or not applicable; Y99.9 Unspecified external cause status; R51.9 Headache, unspecified; M25.561 Pain in right knee; M54.9 Dorsalgia, unspecified; I10 Essential (primary) hypertension; I25.10 Atherosclerotic heart disease of native coronary artery without angina pectoris; E11.9 Type 2 diabetes mellitus without complications; E78.5 Hyperlipidemia, unspecified
CPT/HCPCS: 70450; 72100; 73562; 96372; 99283; 99285; J1170; J1885

== ENCOUNTER 2023-02-23 12:30 | Outpatient (REF) | payer MEDICAID, SELFPAY ==
--- NOTE | ~2023-02-23 | XR_ITS ---
EXAMINATION: XR SACRUM AND COCCYX CLINICAL INFORMATION: Chronic bilateral low back pain without sciatica. Severe tailbone pain after fall. COMPARISON: Lumbar spine 02/19/2023, 03/31/2016 TECHNIQUE: 2 views of the sacrum and 2 views of the coccyx were obtained. FINDINGS: Question of distal nondisplaced hairline fracture. The sacroiliac joints are within normal limits. There is mild degenerative change of the pubic symphysis. XR/XR sacrum coccyx min 2V IMPRESSION: Question of distal nondisplaced hairline fracture.
== END 2023-02-23 12:31 | disposition home or self-care (01) ==
LOC: HO.HHCX 12:30
PROVIDERS: Visit Provider Family Medicine
DX: M54.50 Low back pain, unspecified (principal); G89.29 Other chronic pain
CPT/HCPCS: 72220

== ENCOUNTER 2023-02-28 17:15 | Outpatient (REF) | payer MEDICAID, SELFPAY ==
[2023-02-28 17:56] LABS: Anion Gap 13 (12-20); Blood Urea Nitrogen 20 mg/dL (9-16); Calcium 9.3 mg/dL (8.4-10.2); Carbon Dioxide 26 mmol/L (22-29); Chloride 102 mmol/L (96-108); Estimated Glomerular Filt Rate > 60; Glucose Random 165 mg/dL (60-115); Potassium 4.6 mmol/L (3.3-5.1); Sodium 136 mmol/L (135-145)
== END 2023-02-28 17:16 | disposition home or self-care (01) ==
LOC: HO.LAB 17:15
PROVIDERS: Absent Provider Family Medicine; PCP Family Medicine; Visit Provider General Practice
DX: R30.0 Dysuria (principal)
CPT/HCPCS: 36415; 80048

== ENCOUNTER 2023-03-16 13:55 | Outpatient (REF) | payer MEDICAID, SELFPAY ==
--- NOTE | ~2023-03-16 | MM_ITS ---
EXAMINATION: MM SCREENING DIGITAL BREAST TOMOSYNTHESIS, BILATERAL CLINICAL INFORMATION: Screening. Asymptomatic. COMPARISON: Mammography: 03/09/2022, 01/27/2021, 08/22/2018, 07/28/2017, 07/20/2016 TECHNIQUE: Digital breast tomosynthesis is performed in both the craniocaudal and mediolateral oblique views along with computer-aided detection (CAD). Synthesized 2D images are generated from the tomosynthesis. FINDINGS: There are scattered areas of fibroglandular density (ACR BI-RADS breast composition Category b). There are bilateral skin calcifications. There are no suspicious masses, suspicious grouped calcifications, or areas of architectural distortion in either breast. The parenchymal pattern is stable from prior exams. No axillary abnormalities. MM/MM tomosynthesis screening BI IMPRESSION: No mammographic evidence of malignancy. ASSESSMENT: BI-RADS BI-RADS 2 - Benign Findings RECOMMENDATION: Routine annual mammography screening. 1 year F/U This examination should not preclude the clinical evaluation of a suspicious palpable abnormality. This patient's information was entered into a reminder system with a target due date for their next mammogram.
== END 2023-03-16 13:56 | disposition home or self-care (01) ==
LOC: HO.US 13:55
PROVIDERS: PCP Family Medicine; Visit Provider Family Medicine
DX: Z12.31 Encounter for screening mammogram for malignant neoplasm of breast (principal)
CPT/HCPCS: 77063; 77067

== ENCOUNTER → 2023-03-16 14:00 | Outpatient (BNV) | payer MEDICAID, SELFPAY | PROVIDERS: PCP Family Medicine; Visit Provider Radiology Diagnostic Radiology | DX: Z12.31 Encounter for screening mammogram for malignant neoplasm of breast (principal) | CPT/HCPCS: 77063; 77067 ==

== ENCOUNTER 2023-03-18 14:38 | Outpatient (REF) | payer MEDICAID, SELFPAY ==
--- NOTE | ~2023-03-18 | XR_ITS ---
EXAMINATION: XR SACRUM AND COCCYX CLINICAL INFORMATION: Closed fracture of sacrum and coccyx with routine healing, hairline fracture seen on x-ray February. COMPARISON: 02/23/2023 sacrum/coccyx. 02/19/2023 lumbar radiographs. TECHNIQUE: 5 views of the sacrum and coccyx. FINDINGS: Degenerative changes in the imaged lower lumbar spine. Mild degenerative changes with sclerosis in the bilateral sacroiliac joints. Mild degenerative changes in the pubic symphysis. Previously questioned nondisplaced distal hairline fracture is difficult to confirm as visualization is limited due to body habitus. XR/XR sacrum coccyx min 2V IMPRESSION: Previously questioned nondisplaced distal hairline fracture is difficult to confirm as visualization is limited due to body habitus. MRI could be considered for further evaluation.
== END 2023-03-18 14:39 | disposition home or self-care (01) ==
LOC: HO.HHCX 14:38
PROVIDERS: Visit Provider Family Medicine
DX: S32.10XD Unspecified fracture of sacrum, subsequent encounter for fracture with routine healing (principal); S32.2XXD Fracture of coccyx, subsequent encounter for fracture with routine healing; X58.XXXD Exposure to other specified factors, subsequent encounter
CPT/HCPCS: 72220

== ENCOUNTER 2023-05-05 14:14 | Outpatient (REF) | payer MEDICAID, SELFPAY ==
--- NOTE | ~2023-05-05 | CT_ITS ---
EXAMINATION: CT ABDOMEN AND PELVIS WITHOUT CONTRAST CLINICAL INFORMATION: Low back pain. Concern for kidney stones. COMPARISON: The scan abdomen pelvis February 17, 2021. Lumbar spine February 19, 2023 TECHNIQUE: Multidetector volumetric imaging was performed from the superior aspect of the liver through the pubic symphysis. Sagittal and coronal reformatted images were obtained on the technologist's workstation. This CT examination was performed using dose optimization techniques as appropriate, variously including the following: *Automated exposure control *Adjustment of mA and/or kV according to patient size (this includes techniques or standardized protocols for targeted exams where dose is matched to indication/reason for exam; i.e. extremities or head) *Use of iterative reconstruction technique DLP: 657 mGy-cm FINDINGS: LUNG BASES: The visualized lung bases are unremarkable. LIVER, GALLBLADDER, AND BILIARY TREE: The liver is normal in size, shape, and attenuation. No focal hepatic lesion or biliary ductal dilatation is present. The gallbladder is unremarkable with no evidence of radiopaque gallstones, gallbladder wall thickening, or obvious pericholecystic inflammatory changes. PANCREAS: Unremarkable. SPLEEN: Unremarkable. ADRENAL GLANDS: Unremarkable. KIDNEYS AND URETERS: The kidneys are normal in size, shape, and attenuation. No hydronephrosis, hydroureter, or calculi seen. No perinephric stranding. (There are 3 adjacent calcifications anterior to the right iliopsoas muscle coronal image 57/103. These appear to lie adjacent to the right ureter and not within the ureter. These have not changed since June 15, 2017. These are phleboliths. BLADDER: Unremarkable. GASTROINTESTINAL TRACT: The small and large bowel are unremarkable. The appendix is unremarkable. ABDOMINAL WALL: No significant hernia is appreciated. LYMPH NODES: Normal. VASCULAR: Unremarkable. PELVIC VISCERA: Unremarkable. OSSEOUS STRUCTURES: Unremarkable. CT/CT abdomen pelvis wo IV con IMPRESSION: No acute abnormality CT scan abdomen pelvis. Fleischner guidelines were followed.
== END 2023-05-05 14:15 | disposition home or self-care (01) ==
LOC: HO.CT 14:14
PROVIDERS: PCP Family Medicine; Visit Provider Emergency Medicine
DX: M54.50 Low back pain, unspecified (principal)
CPT/HCPCS: 74176

== ENCOUNTER 2023-06-22 14:42 | Outpatient (AMB) | payer MEDICAID, SELFPAY ==
--- NOTE | 2023-06-22 14:46 | A.OFFVIS_ITS ---
Intake Vital Signs 06/22/23 15:07 Height 5 ft 1 in Weight 170 lb 2 oz BMI 32.1 BP 138/66 Blood Pressure Location Lt brachial Position Sitting Respiration 16 Pulse 77 Pulse Source Pulse Oximeter Pulse Oximetry (%) 97 Oxygen Delivery Method Room Air Intake Visit Reasons: low back pain with radiation Intake Note: patient comes in for initial visit referred by primary care. Reports pain 8.5/10. Allergies enalapril [ENALAPRIL] Allergy (Unknown, Verified 06/22/23 15:03) UNK hydrochlorothiazide [HYDROCHLOROTHIAZIDE] Allergy (Unknown, Verified 06/22/23 15:03) UNK lisinopril [LISINOPRIL] Allergy (Unknown, Verified 06/22/23 15:03) HIVES,THROAT SWELLING metoprolol [METOPROLOL] Allergy (Unknown, Verified 06/22/23 15:03) UNK metronidazole [METRONIDAZOLE] Allergy (Unknown, Verified 06/22/23 15:03) UNK Oxycodone HCl Allergy (Unknown, Uncoded 11/20/22 17:08) vomiting HPI HPI Comments History of Present Illness Details Alicia is very pleasant Portuguese-speaking 53 years old female who presents in my office with complains on pain in lower back with radiation into bilateral lower extremities all the way to bilateral toes mostly to the big toe on the right and also reports numbness of the big toe on the right and entire thigh on the left. She reports her pain is hurting more when she is sitting or laying down flexing forward aggravates her pain more than flexing backwards. She reports that she can not sleep normally because of her pain she feels her pain stronger wean horizontal position. She can not do activities of daily living she can not take care of herself but she can not function normally. She reports that she is on permanent disability for her pain for 20 years. She reports that she tried application of the heat and cold to her lower back as well as 10s unit it gives some minimal pain relief. She reports the most of the exacerbation of her pain during the daytime. She takes oxycodone 5 mg p.r.n. Motrin 800 mg p.r.n. once a day and Tylenol 650 mg twice a day. She stated that she had MRI in facility in [facility] she does not know whether it was [facility] or [facility]. She also had some injections done for her pain in unknown facility whether it is [facility] or [facility] she does not remember. She reports that those injections did not help her pain. Her past medical history significant for anxiety depression elevated cholesterol and diabetes, she also reports an episode of chest pain it is unclear whether it was angina or myofascial pain she reports that she was given muscle relaxants to treat that pain. She reports that it was long time ago.. Her past surgical history is significant for wrist surgery. She admits vaping nicotine she denies drinking alcohol she drinks no caffeinated beverages and she denies recreational drugs. [facility] Medical History Chest discomfort Nausea CAD (coronary artery disease) Right hand pain Numbness and tingling in left hand Trigger finger, right Hyperlipidemia Diabetes GERD (gastroesophageal reflux disease) Depression Anxiety HTN (hypertension) Surgical History Hx of colonoscopy History of hand surgery Family History Maternal Aunt Dialysis patient Hypertension Diabetes Mother Hypertension Diabetes Father Diabetes Hypertension Social History Alcohol intake: never Patient Tobacco Use Status: Never used Tobacco Cigarettes Per Day: 2 Current occupational status: unemployed Current occupation: right handed Review of Systems Const Denies chills, Reports fatigue and Denies fever(s) Eyes Denies blurry vision, Denies exophthalmos and Denies diplopia ENT Reports Normal hearing present, Denies vertigo and Denies dizziness Card Denies chest pain, Denies chest pain at rest, Denies chest pain with activity, Denies syncope, Denies rapid heart rate, Denies pedal edema and Denies edema Resp Denies chest congestion, Denies cough, Denies hemoptysis, Denies excessive phlegm production, Denies pain on inspiration and Denies pain with cough GI Denies abdominal pain, Denies belching, Denies melena and Denies bloating Denies urinary incontinence Musc Reports back pain, Reports numbness and Reports radiating pain into limb Neuro Reports Normal hearing present, Denies Abnormal speech present, Denies vertigo, Denies dizziness, Denies syncope, Denies lack of coordination, Reports numbness and Denies Sensory deficit (Neuro) Psych Denies no additional complaints, Reports anxiety, Reports depression and Denies irritability Endo Reports fatigue Physical Exam Vital Signs: Last Vital Signs Pulse 77 06/22/23 15:07 Resp 16 06/22/23 15:07 BP 138/66 06/22/23 15:07 Pulse Ox 97 06/22/23 15:07 Oxygen Delivery Method Room Air 06/22/23 15:07 BMI result Body Mass Index 32.1 Const General: well developed Nutritional Appearance: obese Orientation/consciousness: patient oriented x3 Eyes General: appearance normal, both eyes and all related structures Pupils: Equal, round and reactive pupils present EOM: EOMs intact bilaterally Neck Neck: Yes full ROM Chest Chest palpation & inspection: normal inspection of the chest Resp Effort & Inspection: normal respiratory effort, able to speak in complete sentences, normal respiratory pattern, no audible wheezes and no cough Cardio Jugular venous distension: no JVD GI Inspection: Yes normal to inspection Back/Spine/Pelvis Other: Able to stand on bilateral tiptoes and bilateral heels. Able to flex herself normal backwards however almost unable to flex herself forward reports severe pain. Valsalva maneuver aggravates her pain. SLR is positive on the left and negative on the right. Dorsiflexion of the foot at maximal SLR position is positive on the left and negative on the right. Brent test is positive bilaterally stronger on the left and also positive on the right with lesser extent. Pelvic compression test and pelvic distraction test are positive bilaterally with more pain response on the left. Stinchfield test is positive on the left and negative on the right. Fourteen finger test bilaterally positive. Neuro General: patient oriented x3 Cranial nerves: Yes CN's II-XII intact bilaterally, Yes Equal, round and reactive pupils present, Yes Normal hearing present and Yes Ability to bilaterally elevate shoulders present Speech: No Abnormal speech present Gait exam (Neuro): Normal gait present Motor exam (neuro): 5/5 motor strength present throughout Sensory Exam: No Sensory deficit (Neuro) Extrem General: No pedal edema Psych Speech and movement: Normal speech and movement present Affect: normal affect Attitude: cooperative Thought process: Normal thought process present Thought content: Normal thought content present Insight: Good insight present (Psych) Judgement: Good judgement present (Psych) Results Reviewed Results Reviewed: XR SACRUM AND COCCYX TECHNIQUE: 5 views of the sacrum and coccyx. FINDINGS: Degenerative changes in the imaged lower lumbar spine. Mild degenerative changes with sclerosis in the bilateral sacroiliac joints. Mild degenerative changes in the pubic symphysis. Previously questioned nondisplaced distal hairline fracture is difficult to confirm as visualization is limited due to body habitus. Assessment & Plan Assessment & Plan (1) Disc degeneration, lumbar: Code(s): M51.36 - Other intervertebral disc degeneration, lumbar region (2) Spondylosis of lumbar region without myelopathy or radiculopathy: Code(s): M47.816 - Spondylosis without myelopathy or radiculopathy, lumbar region (3) Bilateral sacroiliitis: Code(s): M46.1 - Sacroiliitis, not elsewhere classified (4) Sacroiliac joint dysfunction of both sides: Code(s): M53.3 - Sacrococcygeal disorders, not elsewhere classified (5) Chronic pain syndrome: Code(s): G89.4 - Chronic pain syndrome (6) Radiculopathy, lumbar region: Code(s): M54.16 - Radiculopathy, lumbar region Plan Multiple pain generators come to my mind with the physical examination and diagnostic studies of this patient. Sacroiliitis is prominent. She also has radiculopathy lumbar with SLR positive on the left. We decided that I will schedule this patient for diagnose joint injection bilateral. We will send information request about the injections to the facility where she received injections prior. She will give us a call and tell us what facility we would have to send the information to. I also requested her to go to the facility where she had an MRI, obtain the disc and the report from that facility and bring it to this office. Patient Instructions: I here by testify that I spent 49 minutes in conversation with this patient, as well as planning her care, evaluating available images, organizing this note. The conversation was facilitated with [employer] primary education professor number [phone] primary education professor name Oseas. Coding Level of Care Code New Pt Level 4 (45948) Diagnoses Disc degeneration, lumbar M51.36 Spondylosis of lumbar region without myelopathy or radiculopathy M47.816 Bilateral sacroiliitis M46.1 Sacroiliac joint dysfunction of both sides M53.3 Chronic pain syndrome G89.4 Radiculopathy, lumbar region M54.16
[2023-06-22 15:07] VITALS: BP 138/66; PULSE 77; RESP 16; O2SAT 97; BMI 32.1
== END 2023-06-22 15:43 | disposition home or self-care (01) ==
PROVIDERS: PCP Family Medicine; Visit Provider Anesthesiology
DX: M51.36 Other intervertebral disc degeneration, lumbar region (principal); M47.816 Spondylosis without myelopathy or radiculopathy, lumbar region; M46.1 Sacroiliitis, not elsewhere classified; M53.3 Sacrococcygeal disorders, not elsewhere classified; M54.16 Radiculopathy, lumbar region
CPT/HCPCS: 99204

== ENCOUNTER → 2023-06-22 14:42 | Outpatient (BNVA) | payer MEDICAID, SELFPAY | PROVIDERS: PCP Family Medicine; Visit Provider Anesthesiology | DX: M51.36 Other intervertebral disc degeneration, lumbar region (principal); M47.816 Spondylosis without myelopathy or radiculopathy, lumbar region; M46.1 Sacroiliitis, not elsewhere classified; M53.3 Sacrococcygeal disorders, not elsewhere classified; M54.16 Radiculopathy, lumbar region; G89.4 Chronic pain syndrome | CPT/HCPCS: 99202 ==

== ENCOUNTER 2023-06-24 08:45 | Outpatient (REF) | payer MEDICAID, SELFPAY ==
--- NOTE | ~2023-06-24 | US_ITS ---
EXAMINATION: US ABDOMEN COMPLETE CLINICAL INFORMATION: Fatty liver follow up. COMPARISON: CT abdomen and pelvis 05/05/2023. Ultrasound abdomen complete 09/30/2022 and 02/18/2022. X-ray KUB 04/26/2022. TECHNIQUE: Real-time imaging of the abdominal viscera. Technically limited study secondary to bowel gas and body habitus. FINDINGS: PANCREAS: Largely obscured by overlapping bowel gas. ABDOMINAL AORTA: The proximal, mid, and distal segments are normal in caliber. INFERIOR VENA CAVA: Visualized portions are normal. LIVER: The liver is normal in size. The liver contour is mildly lobulated. There is diffuse increased liver parenchymal echogenicity. No focal hepatic lesion. There is no intrahepatic biliary duct dilatation seen. GALLBLADDER: Normal. The gallbladder is physiologically distended without evidence of stones, sludge, polyps, wall thickening or pericholecystic fluid. COMMON BILE DUCT: Normal in caliber measuring 0.3 cm in diameter. RIGHT KIDNEY: Normal. No hydronephrosis. No renal calculi or focal parenchymal lesions. The kidney measures 10.6 cm in maximum dimension. LEFT KIDNEY: Imaging limited by overlapping bowel gas. No hydronephrosis. No renal calculi or focal parenchymal lesions. The kidney measures 9.3 cm in maximum dimension. SPLEEN: Normal. The spleen measures 8.6 cm in maximum dimension. FREE FLUID: None. US/US abdomen complete IMPRESSION: 1. There is generalized increase in hepatic echotexture, consistent with fatty infiltration or hepatocellular disease. Please correlate clinically. A lobulated hepatic contour favors hepatocellular disease. No focal hepatic mass or intrahepatic biliary dilatation is seen. 2. Technically limited ultrasound examination, in particular of the pancreas and left kidney.
== END 2023-06-24 08:46 | disposition home or self-care (01) ==
LOC: HO.US 08:45
PROVIDERS: PCP Family Medicine; Visit Provider Family Medicine
DX: K76.0 Fatty (change of) liver, not elsewhere classified (principal)
CPT/HCPCS: 76700

== ENCOUNTER 2023-07-18 11:41 | Outpatient (REF) | payer MEDICAID, SELFPAY ==
[2023-07-18 14:39] LABS: Estimated Average Glucose 154 mg/dL
[2023-07-18 15:02] LABS: INTERNATIONAL NORM RATIO 0.9 (0.9-1.1); Prothrombin Time 11.5 SEC (11.1-13.3)
[2023-07-18 15:03] LABS: Alanine Aminotransferase 23 U/L (0-31); Albumin Level 4.3 g/dL (3.5-5.0); Alkaline Phosphatase 62 U/L (39-117); Aspartate Amino Transferase 18 U/L (5-31); Bilirubin Direct 0.2 mg/dL (0.0-0.5); Bilirubin Total 0.3 mg/dL (0.0-1.0); Cholesterol 155 mg/dL (<200); HDL Cholesterol 56 mg/dL (>40); Iron 91 mcg/dL (30-160); LDL Cholesterol Calculated 73 mg/dL (<100); Percent Iron Saturation 27 % (15-50); Total Iron Binding Capacity 342 mcg/dL (228-428); Total Protein 7.9 g/dL (6.5-8.0); Triglycerides 134 mg/dL (<150); Unsaturated Iron Binding 251 ug/dL
[2023-07-18 15:19] LABS: Ferritin 42 ng/mL (10-250)
[2023-07-19 14:04] LABS: Immunoglobulin A 262 mg/dL (47-310); Immunoglobulin G 1599 mg/dL (600-1640)
[2023-07-20 03:48] LABS: Alpha 1 Anti-trypsin 165 mg/dL (83-199); Ceruloplasmin 27 mg/dL (18-53)
[2023-07-20 05:54] LABS: Transglutaminase IgA <1.0 U/mL
[2023-07-21 10:58] LABS: Mitochondrial Antibodies NEGATIVE (NEGATIVE)
[2023-07-21 14:55] LABS: Liver Kidney Microsomal Ab <=20.0 U (<=20.0)
[2023-07-22 12:33] LABS: Smooth Muscle Antibody <20 U (<20)
[2023-07-22 12:59] LABS: Anti Nuclear Antibody Screen NEGATIVE (NEGATIVE)
== END 2023-07-18 11:42 | disposition home or self-care (01) ==
LOC: HO.LAB 11:41
PROVIDERS: PCP Family Medicine; Visit Provider Internal Medicine
DX: K76.0 Fatty (change of) liver, not elsewhere classified (principal); K59.00 Constipation, unspecified
CPT/HCPCS: 36415; 80061; 80076; 82103; 82390; 82728; 82784; 83036; 83540; 85610; 86015; 86038; 86364; 86376; 86381; 99212

== ENCOUNTER 2023-07-18 11:41 | Outpatient (AMB) | payer MEDICAID, SELFPAY ==
--- NOTE | 2023-07-18 11:43 | A.OFFVIS_ITS ---
Vital Signs 07/18/23 11:45 Height 5 ft 1 in Weight 169 lb 12.095 oz BMI 32.1 BP 114/70 Blood Pressure Location Lt brachial Position Sitting Pulse 80 Intake Visit Reasons: Constipation Intake Note: Maria C presents in the office as a follow up for constipation. CC: She states that she is here today because she has pains in the RLQ. She has fatty liver and it is bothering her again. President And Chief Commercial Officer Required: Yes President And Chief Commercial Officer Name: [id number] Allergies enalapril [ENALAPRIL] Allergy (Unknown, Verified 07/18/23 11:44) UNK hydrochlorothiazide [HYDROCHLOROTHIAZIDE] Allergy (Unknown, Verified 07/18/23 11:44) UNK lisinopril [LISINOPRIL] Allergy (Unknown, Verified 07/18/23 11:44) HIVES,THROAT SWELLING metoprolol [METOPROLOL] Allergy (Unknown, Verified 07/18/23 11:44) UNK metronidazole [METRONIDAZOLE] Allergy (Unknown, Verified 07/18/23 11:44) UNK Oxycodone HCl Allergy (Unknown, Uncoded 07/18/23 11:44) vomiting HPI Comments Details: This is a 51-year-old female who presents to the office for follow up. Initial visit 03/22/22: History was reviewed the patient with the help of a blue prints trimmer. Patient states that she has had occasional GERD and dyspepsia on and off for many years. Continues on daily PPI. However, for the past 3 months, has been noticing increased nausea, especially after eating. Describes this as feeling of being overly full. No abdominal pain, discomfort or vomiting with this. No unintentional weight loss. At baseline, she is constipated, but has noticed that when she passes a bowel movement, her nausea improves. Takes NSAIDs frequently (ketorolac, meloxicam, ibuprofen, naproxen have all been on her med list). Also has diabetes, but reports good control, last A1c per her report was 7.6%. Last endoscopy: September 2017: EGD: esophageal diverticulum @ 25cm. Gastric polyps. H pylori + gastritis. Feb 2018: colonoscopy: Excellent prep diverticulosis, erosions in R and transverse colon. Bx normal. Patient does not recall being told what H pylori gastritis, or taking medications for this. 04/30/22: Had acute onset of abdominal pain, nausea, vomiting and diarrhea last week, for which she was seen in the emergency room as well. Now, reports abdominal pain, vomiting has resolved. Diarrhea is resolving. Was also given H pylori triple therapy from the emergency room, and has started taking amoxicillin. Main complaint today is occasional nausea. H pylori testing was positive as expected. She is here to discuss treatment. 06/11/22: Feels well today no acute gastroitestinaly complaints today. Nausea and dyspepsia has resolved. Completed quad therapy 2 weeks ago. Has stopped PPI as well. Did not remember to do the H pylori testing prior to this visit. 09/01/22: Pt to requested a follow up in office today due to recent development of fecal incontinence. Has been going on for almost 3 months. Constipated at baseline. Passes soft to sometimes formed stool. Most pronounced during day time while she is doing her daily chores. NO urinary incontinence. Obstetric hx is pertinent for x5 vaginal deliveries. Largest baby was almost 10 lbs with which she also developed perineal tears, also has required forceps assisted delivery. Sexually active with hx of anal receptive intercourse most recently 3 weeks ago. 07/18/23: Here after PCP ordered US RUQ for vague R sided discomfort which shows ? fatty liver. Pt reports intermittent LOWER r sided abd pain assoc with constipation. No N/V, no pruritus. Has DM which is well controlled. Has lost almost 15 lbs since she was last seen. On Mounja. LFTs not available. Hep serologies neg 2022. US Liver: 1. There is generalized increase in hepatic echotexture, consistent with fatty infiltration or hepatocellular disease. Please correlate clinically. A lobulated hepatic contour favors hepatocellular disease. No focal hepatic mass or intrahepatic biliary dilatation is seen. 2. Technically limited ultrasound examination, in particular of the pancreas and left kidney. Of note - prev complaint of severe constipation with occ fecal incontinence is resolved. [facility] Medical History Chest discomfort Nausea CAD (coronary artery disease) Right hand pain Numbness and tingling in left hand Trigger finger, right Hyperlipidemia Diabetes GERD (gastroesophageal reflux disease) Depression Anxiety HTN (hypertension) Surgical History Hx of colonoscopy History of hand surgery Family History Maternal Aunt Dialysis patient Hypertension Diabetes Mother Hypertension Diabetes Father Diabetes Hypertension Social History Alcohol intake: never Patient Tobacco Use Status: Never used Tobacco Cigarettes Per Day: 2 Current occupational status: unemployed Current occupation: right handed Review of Systems Const All systems reviewed & are unremarkable except as noted in HPI and below Physical Exam Vital Signs: Last Vital Signs Pulse 80 07/18/23 11:45 BP 114/70 07/18/23 11:45 BMI result Body Mass Index 32.1 NAD Nonicteric ABd soft, nontedner, nondistended No spider angioma No RENETTA A/Ox3, no asterixis Assessment & Plan Assessment & Plan (1) Constipation: Code(s): K59.00 - Constipation, unspecified Category: Medical (2) Fatty liver: Code(s): K76.0 - Fatty (change of) liver, not elsewhere classified Category: Medical Plan Reviewed with the pt that based on CT Abd/pel from apr 2023 not much steatosis appreciated however given US findings, will proceed with LFTs as well as other labs for work up of chronic liver disease. Pt does not drink. Has optimized DM control as above and workign on her weight. Chronic hep panel negative from 2022. Plan: - LFTs - Lipid panel, A1c - Autoimmune serology, celiac serology - Ceruloplasmin, iron - A1AT Follow up 4 months Orders: Orders Liver Panel Today K76.0 - Fatty (change of) liver, not elsewhere classified Ferritin Today K76.0 - Fatty (change of) liver, not elsewhere classified IRON PROFILE Today K76.0 - Fatty (change of) liver, not elsewhere classified Lipid Panel Today K76.0 - Fatty (change of) liver, not elsewhere classified Alpha 1 Anti-trypsin Today K76.0 - Fatty (change of) liver, not elsewhere classified Ceruloplasmin Today K76.0 - Fatty (change of) liver, not elsewhere classified Mitochondrial Antibody Today K76.0 - Fatty (change of) liver, not elsewhere classified Prothrombin Time INR Today K76.0 - Fatty (change of) liver, not elsewhere classified Immunoglobulin G Today K76.0 - Fatty (change of) liver, not elsewhere classified Liver Kidney Microsomal Ab Today K76.0 - Fatty (change of) liver, not elsewhere classified Immunoglobulin A Today K76.0 - Fatty (change of) liver, not elsewhere classified Transglutaminase IgA Today K76.0 - Fatty (change of) liver, not elsewhere classified Hemoglobin A1c Today K76.0 - Fatty (change of) liver, not elsewhere classified Smooth Muscle Antibody Today K76.0 - Fatty (change of) liver, not elsewhere classified LINDSEY Reflex Titer and Pattern Today K76.0 - Fatty (change of) liver, not elsewhere classified Coding Level of Care Code Est Pt Level 4 (75476) Diagnoses Constipation K59.00 Fatty liver K76.0
[2023-07-18 11:45] VITALS: BP 114/70; PULSE 80; BMI 32.1
== END 2023-07-18 12:21 | disposition home or self-care (01) ==
PROVIDERS: PCP Family Medicine; Referring Provider Family Medicine; Visit Provider Internal Medicine
DX: K59.00 Constipation, unspecified (principal); K76.0 Fatty (change of) liver, not elsewhere classified
CPT/HCPCS: 99214

== ENCOUNTER 2023-07-19 06:13 | Outpatient (REF) | payer MEDICAID, SELFPAY ==
--- NOTE | ~2023-07-19 | FL_ITS ---
EXAMINATION: XR FLUOROSCOPY WITH IMAGES CLINICAL INFORMATION: Sacrococcygeal disorders. COMPARISON: None available. TECHNIQUE: Fluoroscopy Supervised By: Dr. Costa. Fluoroscopy Time: 0.3 min. Cumulative Dose: 4.06 mGy. DAP: 0.0706 Gycm2. Images: 4. FINDINGS: Intraoperative fluoroscopy and spot films were performed during a procedure in the OR. Images demonstrate spinal needles in each SI joint with surrounding contrast. Please see Dr. Costa's report for complete details. FL/FL guidance in treatment room IMPRESSION: Intraoperative fluoroscopy and spot films were obtained. Please see Dr. Costa's report for complete details.
== END 2023-07-19 06:14 | disposition home or self-care (01) ==
LOC: CF 06:13
PROVIDERS: Visit Provider Anesthesiology
DX: M53.3 Sacrococcygeal disorders, not elsewhere classified (principal); G89.4 Chronic pain syndrome; M46.1 Sacroiliitis, not elsewhere classified
CPT/HCPCS: 27096; J2795; Q9967

== ENCOUNTER 2023-07-19 12:47 | Outpatient (AMB) | payer MEDICAID, SELFPAY ==
--- NOTE | 2023-07-19 13:27 | MHC.OFFVIS ---
Vital Signs 07/19/23 13:44 07/19/23 13:45 Height 5 ft 1 in Weight 169 lb BMI 31.9 BP 118/60 126/66 Blood Pressure Location Lt brachial Lt brachial Position Sitting Sitting Respiration 18 18 Pulse 84 83 Pulse Source Pulse Oximeter Pulse Oximeter Pulse Oximetry (%) 99 97 Oxygen Delivery Method Room Air Room Air Comment Pre-Op Post-Op Intake Visit Reasons: BILATERAL DIAGNOSTIC SIJ INJECTIONS Allergies enalapril [ENALAPRIL] Allergy (Unknown, Verified 07/18/23 11:44) UNK hydrochlorothiazide [HYDROCHLOROTHIAZIDE] Allergy (Unknown, Verified 07/18/23 11:44) UNK lisinopril [LISINOPRIL] Allergy (Unknown, Verified 07/18/23 11:44) HIVES,THROAT SWELLING metoprolol [METOPROLOL] Allergy (Unknown, Verified 07/18/23 11:44) UNK metronidazole [METRONIDAZOLE] Allergy (Unknown, Verified 07/18/23 11:44) UNK Oxycodone HCl Allergy (Unknown, Uncoded 07/18/23 11:44) vomiting PFSH Medical History Chest discomfort Nausea CAD (coronary artery disease) Right hand pain Numbness and tingling in left hand Trigger finger, right Hyperlipidemia Diabetes GERD (gastroesophageal reflux disease) Depression Anxiety HTN (hypertension) Surgical History Hx of colonoscopy History of hand surgery Family History Maternal Aunt Dialysis patient Hypertension Diabetes Mother Hypertension Diabetes Father Diabetes Hypertension Social History Alcohol intake: never Patient Tobacco Use Status: Never used Tobacco Cigarettes Per Day: 2 Current occupational status: unemployed Current occupation: right handed Physical Exam Vital Signs: Last Vital Signs Pulse 83 07/19/23 13:45 Resp 18 07/19/23 13:45 BP 126/66 07/19/23 13:45 Pulse Ox 97 07/19/23 13:45 Oxygen Delivery Method Room Air 07/19/23 13:45 BMI result Body Mass Index 31.9 Assessment & Plan Assessment & Plan (1) Chronic pain syndrome: Code(s): G89.4 - Chronic pain syndrome Category: Medical (2) Sacroiliac joint dysfunction of both sides: Code(s): M53.3 - Sacrococcygeal disorders, not elsewhere classified Category: Medical (3) Bilateral sacroiliitis: Code(s): M46.1 - Sacroiliitis, not elsewhere classified Category: Medical Plan Right diagnostic sacroiliac joint injection Informed consent was explained thoroughly to the patient. All questions about benefits and risks for the procedure were answered. Patient came to the operating room and was positioned prone on the operating table with the pillow under the pelvis. Time out was performed delineating name and of the patient, allergies and the nature of the procedure. The lower back and buttocks of the patient were prepped with ChloraPrep prepped and draped with sterile utility towels. C-arm was brought over the operating field and sq picture of patient's pelvis was demonstrated on the screen. For the right joint tilting C-arm contralateral to the site of the joint the most posterior portion of the joints was superimposed with anterior silhouette of the joint. Skin was injected in the projection of the joint slightly medial to the location of the joint with 25 gauge 1/2 inch needle using local lidocaine 2% .After that 22 gauge 3 and 1/2 inch needle was driven to the right joint in tunnel vision fashion. When needle entered the joint capsule injection of the contrast was performed demonstrating intra-articular and minimally periarticular spread of the contrast. After that 4 cc. of ropivacaine 0.5% was injected into the joint. Upon completion of the injections the needle was removed Sterile dressing was applied. Upon completion of the injection patient was taken outside of the operating room to the recovery room where recovered uneventfully. Orders: Orders FL guidance in treatment room Today M53.3 - Sacrococcygeal disorders, not elsewhere classified Coding Level of Care Code Procedure Only Diagnoses Chronic pain syndrome G89.4 Sacroiliac joint dysfunction of both sides M53.3 Bilateral sacroiliitis M46.1
[2023-07-19 13:44] VITALS: BP 118/60; PULSE 84; RESP 18; O2SAT 99; BMI 31.9
[2023-07-19 13:45] VITALS: BP 126/66; PULSE 83; RESP 18; O2SAT 97
== END 2023-07-19 13:37 | disposition home or self-care (01) ==
LOC: HO.PMCPRC 12:47
PROVIDERS: PCP Family Medicine; Visit Provider Anesthesiology
DX: G89.4 Chronic pain syndrome (principal); M53.3 Sacrococcygeal disorders, not elsewhere classified; M46.1 Sacroiliitis, not elsewhere classified
CPT/HCPCS: 27096

== ENCOUNTER 2023-07-25 12:58 | Outpatient (AMB) | payer MEDICAID, SELFPAY ==
--- NOTE | 2023-07-25 13:00 | A.OFFVIS_ITS ---
Vital Signs 07/25/23 13:07 Height 5 ft 1 in Weight 172 lb 4 oz BMI 32.5 BP 120/58 L Blood Pressure Location Lt brachial Position Sitting Respiration 14 Pulse 81 Pulse Source Pulse Oximeter Pulse Oximetry (%) 97 Oxygen Delivery Method Room Air Intake Visit Reasons: BILATERAL DIAGNOSTIC SIJ INJECTIONS Allergies enalapril [ENALAPRIL] Allergy (Unknown, Verified 07/25/23 13:05) UNK hydrochlorothiazide [HYDROCHLOROTHIAZIDE] Allergy (Unknown, Verified 07/25/23 13:05) UNK lisinopril [LISINOPRIL] Allergy (Unknown, Verified 07/25/23 13:05) HIVES,THROAT SWELLING metoprolol [METOPROLOL] Allergy (Unknown, Verified 07/25/23 13:05) UNK metronidazole [METRONIDAZOLE] Allergy (Unknown, Verified 07/25/23 13:05) UNK Oxycodone HCl Allergy (Unknown, Uncoded 07/18/23 11:44) vomiting HPI Comments Details: Alicia back in my office after diagnostic sacroiliac joint injections. She reported that this injection aggravated her pain in the lower back. She felt numbness in bilateral lower extremities after injection she failed pain in the left lateral gaston as well as pain in the right arm after the injection. This is very unusual response. While numbness in bilateral lower extremities could be explained by spillage of the anesthetic over the sciatic nerves, her other complaints can not be explained by administration of relatively small dose of ropivacaine. Today when I spoke with her about further treatment with injections she was very negative about it. I recommend her to try Celebrex. If this medication will have no side effects and if this medication will help her pain she may continue to have this prescriptions with primary care physician. Prior: complains on pain in lower back with radiation into bilateral lower extremities all the way to bilateral toes mostly to the big toe on the right and also reports numbness of the big toe on the right and entire thigh on the left. She reports her pain is hurting more when she is sitting or laying down flexing forward aggravates her pain more than flexing backwards. she is on permanent disability for her pain for 20 years. She tried application of the heat and cold to her lower back as well as 10s unit it gives some minimal pain relief. She reports the most of the exacerbation of her pain during the daytime. She takes oxycodone 5 mg p.r.n. Motrin 800 mg p.r.n. once a day and Tylenol 650 mg twice a day. She stated that she had MRI in facility in [facility] she does not know whether it was [facility] or [facility]. She also had some injections done for her pain in unknown facility whether it is [facility] or [facility] she does not remember. She reports that those injections did not help her pain. ; [facility] Medical History Chest discomfort Nausea CAD (coronary artery disease) Right hand pain Numbness and tingling in left hand Trigger finger, right Hyperlipidemia Diabetes GERD (gastroesophageal reflux disease) Depression Anxiety HTN (hypertension) Surgical History Hx of colonoscopy History of hand surgery Family History Maternal Aunt Dialysis patient Hypertension Diabetes Mother Hypertension Diabetes Father Diabetes Hypertension Social History Alcohol intake: never Patient Tobacco Use Status: Never used Tobacco Cigarettes Per Day: 2 Current occupational status: unemployed Current occupation: right handed Review of Systems Const All systems reviewed & are unremarkable except as noted in HPI and below ENT Reports Normal hearing present Neuro Reports Normal hearing present, Denies Abnormal speech present and Denies Sensory deficit (Neuro) Physical Exam Vital Signs: Last Vital Signs Pulse 81 07/25/23 13:07 Resp 14 07/25/23 13:07 BP 120/58 L 07/25/23 13:07 Pulse Ox 97 07/25/23 13:07 Oxygen Delivery Method Room Air 07/25/23 13:07 BMI result Body Mass Index 32.5 Const General: well developed Nutritional Appearance: obese Orientation/consciousness: patient oriented x3 Eyes General: appearance normal, both eyes and all related structures Pupils: Equal, round and reactive pupils present EOM: EOMs intact bilaterally Neck Neck: Yes full ROM Chest Chest palpation & inspection: normal inspection of the chest Resp Effort & Inspection: normal respiratory effort, able to speak in complete sentences, normal respiratory pattern, no audible wheezes and no cough Cardio Jugular venous distension: no JVD GI Inspection: Yes normal to inspection Back/Spine/Pelvis Other: Able to stand on bilateral tiptoes and bilateral heels. Able to flex herself normal backwards however almost unable to flex herself forward reports severe pain. Valsalva maneuver aggravates her pain. SLR is positive on the left and negative on the right. Dorsiflexion of the foot at maximal SLR position is positive on the left and negative on the right. Brent test is positive bilaterally stronger on the left and also positive on the right with lesser extent. Pelvic compression test and pelvic distraction test are positive bilaterally with more pain response on the left. Stinchfield test is positive on the left and negative on the right. Fourteen finger test bilaterally positive. Neuro General: patient oriented x3 Cranial nerves: Yes CN's II-XII intact bilaterally, Yes Equal, round and reactive pupils present, Yes Normal hearing present and Yes Ability to bilaterally elevate shoulders present Speech: No Abnormal speech present Gait exam (Neuro): Normal gait present Motor exam (neuro): 5/5 motor strength present throughout Sensory Exam: No Sensory deficit (Neuro) Extrem General: No pedal edema Psych Speech and movement: Normal speech and movement present Affect: normal affect Attitude: cooperative Thought process: Normal thought process present Thought content: Normal thought content present Insight: Good insight present (Psych) Judgement: Good judgement present (Psych) Assessment & Plan Assessment & Plan (1) Disc degeneration, lumbar: Code(s): M51.36 - Other intervertebral disc degeneration, lumbar region Category: Medical (2) Spondylosis of lumbar region without myelopathy or radiculopathy: Code(s): M47.816 - Spondylosis without myelopathy or radiculopathy, lumbar region Category: Medical (3) Bilateral sacroiliitis: Code(s): M46.1 - Sacroiliitis, not elsewhere classified Category: Medical (4) Sacroiliac joint dysfunction of both sides: Code(s): M53.3 - Sacrococcygeal disorders, not elsewhere classified Category: Medical (5) Chronic pain syndrome: Code(s): G89.4 - Chronic pain syndrome Category: Medical (6) Radiculopathy, lumbar region: Code(s): M54.16 - Radiculopathy, lumbar region Category: Medical Plan After sacroiliac joint injection which was performed diagnostically for the patient she reports it complications and side effects as above. Her complaints do not make sense for me. I will schedule her for the follow-up with me in mind month and I will start her on Celebrex. If Celebrex will help her I will recommend to continue Celebrex with primary care physician. Medications: New celecoxib (Celebrex) 100 mg PO BID 60 caps 1RF 30 days Coding Level of Care Code Est Pt Level 3 (53810) Diagnoses Disc degeneration, lumbar M51.36 Spondylosis of lumbar region without myelopathy or radiculopathy M47.816 Bilateral sacroiliitis M46.1 Sacroiliac joint dysfunction of both sides M53.3 Chronic pain syndrome G89.4 Radiculopathy, lumbar region M54.16
[2023-07-25 13:07] VITALS: BP 120/58; PULSE 81; RESP 14; O2SAT 97; BMI 32.5
== END 2023-07-25 13:26 | disposition home or self-care (01) ==
PROVIDERS: PCP Family Medicine; Visit Provider Anesthesiology
DX: M51.36 Other intervertebral disc degeneration, lumbar region (principal); M47.816 Spondylosis without myelopathy or radiculopathy, lumbar region; M46.1 Sacroiliitis, not elsewhere classified; M53.3 Sacrococcygeal disorders, not elsewhere classified; G89.4 Chronic pain syndrome; M54.16 Radiculopathy, lumbar region
CPT/HCPCS: 99213

== ENCOUNTER → 2023-07-25 12:58 | Outpatient (BNVA) | payer MEDICAID, SELFPAY | PROVIDERS: PCP Family Medicine; Visit Provider Anesthesiology | DX: M51.36 Other intervertebral disc degeneration, lumbar region (principal); M47.816 Spondylosis without myelopathy or radiculopathy, lumbar region; M46.1 Sacroiliitis, not elsewhere classified; M53.3 Sacrococcygeal disorders, not elsewhere classified; M54.16 Radiculopathy, lumbar region; G89.4 Chronic pain syndrome | CPT/HCPCS: 99212 ==

== ENCOUNTER 2023-10-25 13:21 | Outpatient (AMB) | payer MEDICAID, SELFPAY ==
--- NOTE | 2023-10-25 13:25 | A.OFFVIS_ITS ---
Vital Signs 10/25/23 13:26 Height 5 ft 1 in Weight 167 lb 8.821 oz BMI 31.7 BP 128/68 Blood Pressure Location Lt brachial Position Sitting Pulse 73 Pulse Source Monitor Intake Visit Reasons: Follow up. [place] [place] Supervisor Required: Yes [place] [place] Supervisor Name: [id number] Allergies enalapril [ENALAPRIL] Allergy (Unknown, Verified 07/25/23 13:05) UNK hydrochlorothiazide [HYDROCHLOROTHIAZIDE] Allergy (Unknown, Verified 07/25/23 13:05) UNK lisinopril [LISINOPRIL] Allergy (Unknown, Verified 07/25/23 13:05) HIVES,THROAT SWELLING metoprolol [METOPROLOL] Allergy (Unknown, Verified 07/25/23 13:05) UNK metronidazole [METRONIDAZOLE] Allergy (Unknown, Verified 07/25/23 13:05) UNK Oxycodone HCl Allergy (Unknown, Uncoded 07/18/23 11:44) vomiting HPI Comments Details: 53-year-old female with past medical history of hypertension, hyperlipidemia, diabetes, and nonobstructive coronary disease is here for a follow-up. She last seen Jeny January 04, 2023. She reports she has had no chest pains, shortness of breath, palpitations, or orthopnea. She states her blood pressures when she does check them have been good. She reports she is undergoing a volutary plastic surgery procedure for her abdomen soon. She reports she walks often and feels good. [facility] Medical History (Updated 10/26/23 @ 08:02 by Pamela Mills NP) Pre-operative cardiovascular examination Chest discomfort Nausea CAD (coronary artery disease) Right hand pain Numbness and tingling in left hand Trigger finger, right Hyperlipidemia Diabetes GERD (gastroesophageal reflux disease) Depression Anxiety HTN (hypertension) Surgical History Hx of colonoscopy History of hand surgery Family History Maternal Aunt Dialysis patient Hypertension Diabetes Mother Hypertension Diabetes Father Diabetes Hypertension Social History Alcohol intake: never Patient Tobacco Use Status: Never used Tobacco Cigarettes Per Day: 2 Current occupational status: unemployed Current occupation: right handed Review of Systems Const Denies weakness ENT Denies dizziness Card Denies chest pain, Denies chest pain with activity, Denies syncope, Denies rapid heart rate, Denies pedal edema, Denies edema, Denies leg edema, Denies lightheadedness, Denies palpitations, Denies dyspnea, Denies dyspnea on exertion and Denies orthopnea Resp Denies cough, Denies dyspnea and Denies dyspnea on exertion GI Denies hematochezia and Denies change in stool character Musc Denies abnormal gait, Denies muscle cramps, Denies muscle weakness, Denies numbness, Denies radiating pain into limb and Denies tingling Neuro Denies abnormal gait, Denies dizziness, Denies syncope, Denies numbness, Denies tingling and Denies weakness Endo Denies palpitations Physical Exam Vital Signs: Last Vital Signs Pulse 73 10/25/23 13:26 BP 128/68 10/25/23 13:26 BMI result Body Mass Index 31.7 Office Procedures EKG Details: EKG today. Normal Sinus Rhythm. Septal Infarct, age undetermined. Rate 73 bpm. OH interval 146 ms. QRS 94 ms. QTc 453 ms. [id number], Complete Assessment & Plan Assessment & Plan (1) Coronary arteriosclerosis: Code(s): I25.10 - Atherosclerotic heart disease of [place] coronary artery without angina pectoris Category: Medical (2) Pre-operative cardiovascular examination: Code(s): Z01.810 - Encounter for preprocedural cardiovascular examination Category: Medical Plan Cardiac catheterization in 2011 showing nonobstructive coronary disease. Echocardiogram 02/07/2023 showed normal LVEF on 55-60%. Mild mitral regurg itations. Normal RV systolic function. She did a exercise stress test 02/07/2023 with almost 9 minutes of exercise achieving 71% MPHR without anginal symptoms. Will repeat with nuclear imaging to ensure no ischemia. She is on aspirin 81mg, and pravastatin 40mg. Surgery sounds like it is a abdominoplasty and will be performed at [facility] Plastic Surgery. [address] [place] [address]. [phone] is their phone number. Orders: Orders CA stress test 10/25/23 I25.10 - Atherosclerotic heart disease of [place] coronary artery without angina pectoris NM cardiolite stress test 10/25/23 I25.10 - Atherosclerotic heart disease of [place] coronary artery without angina pectoris Coding Level of Care Code Est Pt Level 3 (02492) Diagnoses Coronary arteriosclerosis I25.10 Pre-operative cardiovascular examination Z01.810 CPT Codes EKG - CPT: 59520-[id number], Complete ([id number])
[2023-10-25 13:26] VITALS: BP 128/68; PULSE 73; BMI 31.7
== END 2023-10-25 14:05 | disposition home or self-care (01) ==
PROVIDERS: PCP Family Medicine; Visit Provider Nurse Practitioner
DX: I25.10 Atherosclerotic heart disease of native coronary artery without angina pectoris (principal); Z01.810 Encounter for preprocedural cardiovascular examination
CPT/HCPCS: 93010; 99213

== ENCOUNTER → 2023-10-25 13:21 | Outpatient (BNVA) | payer MEDICAID, SELFPAY | PROVIDERS: PCP Family Medicine; Visit Provider Nurse Practitioner | DX: Z01.810 Encounter for preprocedural cardiovascular examination (principal); I25.10 Atherosclerotic heart disease of native coronary artery without angina pectoris; I10 Essential (primary) hypertension | CPT/HCPCS: 93005; 99212 ==

== ENCOUNTER → 2023-12-20 08:23 | Outpatient (REF) | payer MEDICAID, SELFPAY ==
--- NOTE | ~2023-12-20 | NM_ITS ---
Lexiscan Myocardial perfusion study Indication: Coronary artery disease Technique: The patient was brought in for a Lexiscan perfusion study on 12/20/2023 and was injected 0.4 mg of Lexiscan intravenously. Within a minute of this injection 25 mCi of sestamibi was given intravenously. Images were obtained using the SPECT gamma camera interlaced with the gating device. Images were obtained in supine position. Resting perfusion study was performed on 12/21/2023. Patient was administered 25 mCi of sestamibi intravenously at rest. Images were then obtained in supine position. Total DLP 120 mGy-cm. Images were processed with the software and compared side to side in short axis, horizontal long axis and vertical long axis views. Findings: Raw aquisition reviewed. The stress perfusion study showed diminished tracer uptake at the apex. There is no significant change with CT attenuation correction. The gated study shows normal LV systolic function with calculated LVEF of > 70%. LV cavity is normal in size. The gated study shows reduced thickening and contractility at the apex. Resting study shows diminished tracer uptake in the apex. Gating at rest reveals reduced contractility of the apex with an ejection fraction of 68%. The findings are consistent with fixed apical perfusion defect. No clear reversible defects. NM/NM cardiolite stress test Impression: 1. Myocardial perfusion imaging study shows apical infarct. No clear ischemia. 2. Gated LVEF is > 70% during stress; 68% during rest. 3. Transient ischemic dilatation not present. EKG component of the test reported separately. Electronically signed by: Nando Miller MD 12/21/2023 03:36 PM EDT
--- NOTE | 2023-12-20 08:26 | CA_ITS ---
Acquisition Time: 2023-12-20 08:32:25 Total Exercise Time: 00:08:16 Test Indications: PREOP Medications: Protocol: TRUDY Max HR: 115 BPM 68% of Pred: 167 BPM Max BP: 142/064 mmHG Max Work Load: 10.1 METS Exercise stress test with exercise 8 min 16 sec of Trudy protocol, achieving 68% MPHR, without anginal symptoms, with isolated PVCs, with normotensive response to exercise with nondiagnostic EKG for ischemia due to suboptimal heart rate. Exercise stopped due to report of fatue, testing changed to a pharmacological stress test with Lexiscan injection, while walking in recovery mode, without anginal symptoms, with isolated PVCs, with normotensive response to injection, with nondiagnostic EKG. Nuclear images pending. Test reviewed with Dr Bruno Referred By: Pamela Mills Overread By: ALIX JOHNSON
== END ==
LOC: HO.CARD 08:23
PROVIDERS: PCP Family Medicine; Visit Provider Nurse Practitioner
DX: I25.10 Atherosclerotic heart disease of native coronary artery without angina pectoris (principal)
CPT/HCPCS: 78452; 93017; A9500; J0280; J2785

== ENCOUNTER → 2023-12-20 08:26 | Outpatient (BNV) | payer MEDICAID, SELFPAY | PROVIDERS: PCP Family Medicine; Visit Provider Nurse Practitioner Family | DX: I25.10 Atherosclerotic heart disease of native coronary artery without angina pectoris (principal) | CPT/HCPCS: 78452; 93016; 93018 ==

== ENCOUNTER 2024-01-06 13:02 | Outpatient (REF) | payer MEDICAID, SELFPAY ==
--- NOTE | ~2024-01-06 | XR_ITS ---
EXAMINATION: XR KNEE, LEFT CLINICAL INFORMATION: Pain. Decreased range of motion. COMPARISON: No priors. TECHNIQUE: Four views of the left knee. FINDINGS: No acute cortical disruption or malalignment. No lytic or blastic lesions. No joint effusion. No subcutaneous emphysema. XR/XR knee LT 4V IMPRESSION: No acute fracture or dislocation Electronically signed by: Tate Dumont MD 01/06/2024 02:18 PM EDT
--- NOTE | ~2024-01-06 | XR_ITS ---
EXAMINATION: XR HIP, LEFT CLINICAL INFORMATION: Left buttock and left hip pain. COMPARISON: CT abdomen/pelvis dated 05/05/2023. TECHNIQUE: Two views of the left hip. FINDINGS: No acute fracture or dislocation. No significant joint space narrowing. Tiny acetabular marginal osteophytes. No concerning lytic or blastic osseous lesion. No evidence of femoral head avascular necrosis. XR/XR hip LT min 2V IMPRESSION: Minimal left hip arthrosis. Electronically signed by: Jonas West MD 01/06/2024 03:05 PM EDT
--- NOTE | ~2024-01-06 | XR_ITS ---
EXAMINATION: XR LUMBOSACRAL SPINE CLINICAL INFORMATION: Left-sided lower back pain. COMPARISON: CT abdomen/pelvis dated 05/05/2023. TECHNIQUE: Three views of the lumbosacral spine. FINDINGS: Normal vertebral body alignment. The lumbar lordosis is maintained. No acute fracture or subluxation. No loss of vertebral body or intervertebral disc height. Tiny multilevel anterior endplate osteophytes. No concerning lytic or blastic osseous lesion. Moderate stool burden. XR/XR lumbar spine 2-3V IMPRESSION: 1. Minimal multilevel degenerative disc disease. 2. Moderate stool burden. Electronically signed by: Jonas West MD 01/06/2024 03:08 PM EDT
[2024-01-06 14:11] LABS: Hematocrit 44.9 % (37.0-47.0); Hemoglobin 14.9 g/dl (12.0-16.0); Mean Corpuscular HGB Conc 33.2 g/dl (31.0-35.0); Mean Corpuscular Hemoglobin 29.9 pg (27.0-33.0); Mean Platelet Volume 10.9 fL (9.4-12.3); Platelet Count 197 X10*3/uL (160-400); Red Blood Count 4.99 X10*6/uL (4.20-5.50); Red Cell Distribution Width 13.5 % (11.0-16.0); White Blood Count 5.5 X10*3/uL (4.8-10.8)
[2024-01-06 14:29] LABS: Estimated Average Glucose 143 mg/dL; Hemoglobin A1C 187.5241 umol/L; Hemoglobin A1c % 6.6 % (<6.0); Total Hemoglobin (HGBA1C) 3838.0541 umol/L
[2024-01-06 15:20] LABS: Alanine Aminotransferase 28 U/L (0-31); Albumin Level 4.6 g/dL (3.5-5.0); Alkaline Phosphatase 64 U/L (39-117); Anion Gap 12 (12-20); Aspartate Amino Transferase 29 U/L (5-31); Bilirubin Direct 0.1 mg/dL (0.0-0.5); Bilirubin Total 0.3 mg/dL (0.0-1.0); Blood Urea Nitrogen 15 mg/dL (9-16); Calcium 10.2 mg/dL (8.4-10.2); Carbon Dioxide 28 mmol/L (22-29); Chloride 104 mmol/L (96-108); Cholesterol 176 mg/dL (<200); Estimated Glomerular Filt Rate > 60; Glucose Random 88 mg/dL (60-115); HDL Cholesterol 60 mg/dL (>40); LDL Cholesterol Calculated 101 mg/dL (<100); Potassium 4.1 mmol/L (3.3-5.1); Sodium 140 mmol/L (135-145); Total Protein 8.2 g/dL (6.5-8.0); Triglycerides 77 mg/dL (<150)
[2024-01-06 15:27] LABS: Free T4 (Free Thyroxine) 0.89 ng/dL (0.71-1.85); Thyroid Stimulating Hormone 0.16 uIU/mL (0.32-4.0); Vitamin D 25-OH Total 65.3 ng/mL (>30)
[2024-01-06 15:33] LABS: Creatinine Urine 130.38 mg/dL; Microalbum/Creatinine Ratio Ur 18.4 ug/mg cr (<30)
[2024-01-07 08:22] LABS: Hepatitis A Antibody IgG REACTIVE (Nonreactive); ~Hepatitis A Antibody IgG 9.32 S/CO (0.00-0.99)
[2024-01-07 08:32] LABS: HBS Num1 361.56 mIU/mL (0-7.99); HBc Num1 0.18 S/CO (0.00-0.79); HBsAGNum1 0.41 S/CO (0.00-0.99); HIV AB/AG Nonreactive (Nonreactive); HIV Num 1 0.06 S/CO (0.00-0.99); Hepatitis B Core Antibody Nonreactive (Nonreactive); Hepatitis B Surface Antigen Negative (Negative); ~HepC Num1 0.15 S/CO (0.00-0.79); ~Hepatitis B Surface Antibody REACTIVE (Nonreactive); ~Hepatitis C Antibody Nonreactive (Nonreactive)
[2024-01-07 10:59] LABS: CT PCR NOT DETECTED (Not Detect.); NG PCR NOT DETECTED (Not Detect.)
[2024-01-09 13:04] LABS: Alpha Fetoprotein 1.9 ng/mL
[2024-01-09 14:28] LABS: RPR Rapid Plasma Reagin NON-REACTIVE (NON-REACTIVE)
== END 2024-01-06 13:03 | disposition home or self-care (01) ==
LOC: HO.HHCX 13:02
PROVIDERS: PCP Family Medicine; Visit Provider Family Medicine
DX: M54.50 Low back pain, unspecified (principal); M25.562 Pain in left knee; M79.18 Myalgia, other site; G89.29 Other chronic pain; E11.9 Type 2 diabetes mellitus without complications; K76.0 Fatty (change of) liver, not elsewhere classified; Z00.00 Encounter for general adult medical examination without abnormal findings; Z79.4 Long term (current) use of insulin; I10 Essential (primary) hypertension; E78.49 Other hyperlipidemia; I25.10 Atherosclerotic heart disease of native coronary artery without angina pectoris; F33.9 Major depressive disorder, recurrent, unspecified; K21.9 Gastro-esophageal reflux disease without esophagitis; G43.909 Migraine, unspecified, not intractable, without status migrainosus; M25.561 Pain in right knee; M53.3 Sacrococcygeal disorders, not elsewhere classified; R20.2 Paresthesia of skin; B37.2 Candidiasis of skin and nail; E65 Localized adiposity; R68.82 Decreased libido; Z68.31 Body mass index [BMI] 31.0-31.9, adult
CPT/HCPCS: 72100; 73502; 73564; 80048; 80061; 80076; 82043; 82105; 82306; 82570; 83036; 84439; 84443; 85027; 86592; 86704; 86706; 86708; 86803; 87340; 87389; 87491; 87591

== ENCOUNTER → 2024-01-06 13:05 | Outpatient (BNV) | payer MEDICAID, SELFPAY | PROVIDERS: PCP Family Medicine; Visit Provider Radiology Diagnostic Radiology | DX: M25.562 Pain in left knee (principal) | CPT/HCPCS: 73564 ==

== ENCOUNTER 2024-01-18 12:44 | Outpatient (AMB) | payer MEDICAID, SELFPAY ==
--- NOTE | 2024-01-18 12:46 | MHC.OFFVIS ---
Vital Signs 01/18/24 12:47 Height 5 ft 1 in Weight 167 lb 8.821 oz BMI 31.7 BP 118/62 Blood Pressure Location Lt brachial Position Sitting Pulse 78 Intake Visit Reasons: 4 month follow up Intake Note: Maria C presents in the office as a 4 month follow up. CC: She states that she is feeling okay. Business Applications Developer Required: Yes Business Applications Developer Name: [id number] Allergies enalapril [ENALAPRIL] Allergy (Unknown, Verified 01/18/24 12:52) UNK hydrochlorothiazide [HYDROCHLOROTHIAZIDE] Allergy (Unknown, Verified 01/18/24 12:52) UNK lisinopril [LISINOPRIL] Allergy (Unknown, Verified 01/18/24 12:52) HIVES,THROAT SWELLING metoprolol [METOPROLOL] Allergy (Unknown, Verified 01/18/24 12:52) UNK metronidazole [METRONIDAZOLE] Allergy (Unknown, Verified 01/18/24 12:52) UNK Oxycodone HCl Allergy (Unknown, Uncoded 01/18/24 12:48) vomiting HPI Comments Details: This is a 51-year-old female who presents to the office for follow up. Initial visit 03/22/22: History was reviewed the patient with the help of a director security management. Patient states that she has had occasional GERD and dyspepsia on and off for many years. Continues on daily PPI. However, for the past 3 months, has been noticing increased nausea, especially after eating. Describes this as feeling of being overly full. No abdominal pain, discomfort or vomiting with this. No unintentional weight loss. At baseline, she is constipated, but has noticed that when she passes a bowel movement, her nausea improves. Takes NSAIDs frequently (ketorolac, meloxicam, ibuprofen, naproxen have all been on her med list). Also has diabetes, but reports good control, last A1c per her report was 7.6%. Last endoscopy: September 2017: EGD: esophageal diverticulum @ 25cm. Gastric polyps. H pylori + gastritis. Feb 2018: colonoscopy: Excellent prep diverticulosis, erosions in R and transverse colon. Bx normal. Patient does not recall being told what H pylori gastritis, or taking medications for this. 04/30/22: Had acute onset of abdominal pain, nausea, vomiting and diarrhea last week, for which she was seen in the emergency room as well. Now, reports abdominal pain, vomiting has resolved. Diarrhea is resolving. Was also given H pylori triple therapy from the emergency room, and has started taking amoxicillin. Main complaint today is occasional nausea. H pylori testing was positive as expected. She is here to discuss treatment. 06/11/22: Feels well today no acute gastroitestinaly complaints today. Nausea and dyspepsia has resolved. Completed quad therapy 2 weeks ago. Has stopped PPI as well. Did not remember to do the H pylori testing prior to this visit. 09/01/22: Pt to requested a follow up in office today due to recent development of fecal incontinence. Has been going on for almost 3 months. Constipated at baseline. Passes soft to sometimes formed stool. Most pronounced during day time while she is doing her daily chores. NO urinary incontinence. Obstetric hx is pertinent for x5 vaginal deliveries. Largest baby was almost 10 lbs with which she also developed perineal tears, also has required forceps assisted delivery. Sexually active with hx of anal receptive intercourse most recently 3 weeks ago. 07/18/23: Here after PCP ordered US RUQ for vague R sided discomfort which shows ? fatty liver. Pt reports intermittent LOWER r sided abd pain assoc with constipation. No N/V, no pruritus. Has DM which is well controlled. Has lost almost 15 lbs since she was last seen. On Mounjaro. LFTs not available. Hep serologies neg 2022. US Liver: 1. There is generalized increase in hepatic echotexture, consistent with fatty infiltration or hepatocellular disease. Please correlate clinically. A lobulated hepatic contour favors hepatocellular disease. No focal hepatic mass or intrahepatic biliary dilatation is seen. 2. Technically limited ultrasound examination, in particular of the pancreas and left kidney. Of note - prev complaint of severe constipation with occ fecal incontinence is resolved. 01/18/24: Here for routine follow up. Reports no acute GI issues. Labs reviewed. Fib 4 now 1.47. Pt reports shes off mounjaro due to c/o hairloss. [facility] Medical History Pre-operative cardiovascular examination Chest discomfort Nausea CAD (coronary artery disease) Right hand pain Numbness and tingling in left hand Trigger finger, right Hyperlipidemia Diabetes GERD (gastroesophageal reflux disease) Depression Anxiety HTN (hypertension) Surgical History Hx of colonoscopy History of hand surgery Family History Maternal Aunt Dialysis patient Hypertension Diabetes Mother Hypertension Diabetes Father Diabetes Hypertension Social History Alcohol intake: never Patient Tobacco Use Status: Never used Tobacco Cigarettes Per Day: 2 Current occupational status: unemployed Current occupation: right handed Review of Systems Const All systems reviewed & are unremarkable except as noted in HPI and below Physical Exam Vital Signs: Last Vital Signs Pulse 78 01/18/24 12:47 BP 118/62 01/18/24 12:47 BMI result Body Mass Index 31.7 No apparent distress Nonicteric Abdomen soft, nondistended Alert and oriented x3, normal gait Assessment & Plan Assessment & Plan (1) Fatty liver: Code(s): K76.0 - Fatty (change of) liver, not elsewhere classified Category: Medical (2) Coronary arteriosclerosis: Code(s): I25.10 - Atherosclerotic heart disease of [place] coronary artery without angina pectoris Category: Medical (3) Hyperlipidemia: Code(s): E78.5 - Hyperlipidemia, unspecified Category: Medical (4) HTN (hypertension): Code(s): I10 - Essential (primary) hypertension Category: Medical Qualifiers: Hypertension type: primary hypertension Qualified Code(s): I10 - Essential (primary) hypertension (5) Diabetes mellitus: Code(s): E11.9 - Type 2 diabetes mellitus without complications Category: Medical (6) Obesity (BMI 30.0-34.9): Code(s): E66.811 - Obesity, class 1 Category: Medical Plan Pt with MAFLD/MASH. Fib 4 is 1.47 i.e intermediate risk of progression to cirrhosis. Pt extensively counseled on control of metabolic factors including DM, HLD, obesity. Also reviewed to discuss resumption of GLP1 Mihai with her PCP. If unable to tolerate terzepatide, would recommend semaglutide 2.4 mg/week (best evidence) or liraglutide 3 mg/day for the added benefit of weight loss apart from DM and MASH. Plan: - US elastography - Pt to review resumption of GLP1 Mihai with PCP as above - Repeat MELD labs in 6 months - Follow up in 6 months Orders: Orders Complete Blood Count no Diff 6 Months K76.0 - Fatty (change of) liver, not elsewhere classified US abdomen comp w elastography Today K76.0 - Fatty (change of) liver, not elsewhere classified Comprehensive Met. Panel 6 Months K76.0 - Fatty (change of) liver, not elsewhere classified Prothrombin Time INR 6 Months K76.0 - Fatty (change of) liver, not elsewhere classified Coding Level of Care Code Est Pt Level 4 (14781) Complex EM visit Add On G2211 Diagnoses Fatty liver K76.0 Coronary arteriosclerosis I25.10 Hyperlipidemia E78.5 Primary hypertension I10 Hypertension type: primary hypertension Diabetes mellitus E11.9 Obesity (BMI 30.0-34.9) E66.811
[2024-01-18 12:47] VITALS: BP 118/62; PULSE 78; BMI 31.7
== END 2024-01-18 13:29 | disposition home or self-care (01) ==
LOC: HO.HGI 12:45
PROVIDERS: PCP Family Medicine; Visit Provider Internal Medicine
DX: K76.0 Fatty (change of) liver, not elsewhere classified (principal); I25.10 Atherosclerotic heart disease of native coronary artery without angina pectoris; E78.5 Hyperlipidemia, unspecified; I10 Essential (primary) hypertension; E11.9 Type 2 diabetes mellitus without complications; E66.811 Obesity, class 1
CPT/HCPCS: 99214

== ENCOUNTER → 2024-01-18 12:44 | Outpatient (BNVA) | payer MEDICAID, SELFPAY | PROVIDERS: PCP Family Medicine; Visit Provider Internal Medicine | DX: K21.9 Gastro-esophageal reflux disease without esophagitis (principal); K76.0 Fatty (change of) liver, not elsewhere classified; I25.10 Atherosclerotic heart disease of native coronary artery without angina pectoris; E78.5 Hyperlipidemia, unspecified; I10 Essential (primary) hypertension; E11.9 Type 2 diabetes mellitus without complications; E66.811 Obesity, class 1; Z68.31 Body mass index [BMI] 31.0-31.9, adult | CPT/HCPCS: 99212 ==

== ENCOUNTER 2024-01-23 15:27 | Outpatient (REF) | payer MEDICAID, SELFPAY ==
[2024-01-23 16:56] LABS: Free T4 (Free Thyroxine) 0.85 ng/dL (0.71-1.85); Thyroid Stimulating Hormone 0.22 uIU/mL (0.32-4.0)
[2024-01-24 07:34] LABS: Triiodothyronine T3 Free 3.1 pg/mL (2.3-4.2); Triiodothyronine T3 Total 89 ng/dL (76-181)
== END 2024-01-23 15:28 | disposition home or self-care (01) ==
LOC: HO.HHCL 15:27
PROVIDERS: Visit Provider Family Medicine
DX: R79.89 Other specified abnormal findings of blood chemistry (principal)
CPT/HCPCS: 36415; 84439; 84443; 84480; 84481

== ENCOUNTER 2024-02-03 09:18 | Outpatient (REF) | payer MEDICAID, SELFPAY | END 2024-02-03 09:19 | disposition home or self-care (01) | LOC: HO.US 09:18 | PROVIDERS: PCP Family Medicine; Visit Provider Internal Medicine | DX: K76.0 Fatty (change of) liver, not elsewhere classified (principal) | CPT/HCPCS: 76700; 76981 ==

== ENCOUNTER → 2024-02-03 09:20 | Outpatient (BNV) | payer MEDICAID, SELFPAY | PROVIDERS: PCP Family Medicine; Visit Provider Radiology Diagnostic Radiology | DX: K76.0 Fatty (change of) liver, not elsewhere classified (principal) | CPT/HCPCS: 76700 ==

== ENCOUNTER 2024-03-21 14:10 | Outpatient (REF) | payer MEDICAID, SELFPAY ==
--- NOTE | ~2024-03-21 | MM_ITS ---
EXAMINATION: MM SCREENING DIGITAL BREAST TOMOSYNTHESIS, BILATERAL CLINICAL INFORMATION: Screening. Asymptomatic. COMPARISON: Mammography: Comparison is made with available priors TECHNIQUE: Digital breast mammography with tomosynthesis is performed in both the craniocaudal and mediolateral oblique views along with computer-aided detection (CAD). FINDINGS: There are scattered areas of fibroglandular density (ACR BI-RADS breast composition Category b). There are no significant masses, abnormal calcifications, or other abnormalities. MM/MM tomosynthesis screening BI IMPRESSION: No mammographic evidence of malignancy. ASSESSMENT: BI-RADS BI-RADS 1 - Negative RECOMMENDATION: Routine annual mammography screening. 1 year F/U This examination should not preclude the clinical evaluation of a suspicious palpable abnormality. This patient's information was entered into a reminder system with a target due date for their next mammogram. Electronically signed by: Velia Sorensen DO 03/28/2024 09:26 AM [facility]
[2024-03-21 18:12] LABS: Anion Gap 12 (12-20); Blood Urea Nitrogen 20 mg/dL (9-16); Calcium 9.7 mg/dL (8.4-10.2); Carbon Dioxide 28 mmol/L (22-29); Chloride 106 mmol/L (96-108); Estimated Glomerular Filt Rate > 60; Glucose Random 124 mg/dL (60-115); Potassium 4.6 mmol/L (3.3-5.1); Sodium 141 mmol/L (135-145)
== END 2024-03-21 14:11 | disposition home or self-care (01) ==
LOC: HO.MAMMO 14:10
PROVIDERS: PCP Family Medicine; Referring Provider Internal Medicine Cardiovascular Disease; Visit Provider Family Medicine
DX: I25.10 Atherosclerotic heart disease of native coronary artery without angina pectoris (principal); Z12.31 Encounter for screening mammogram for malignant neoplasm of breast; R92.323 Mammographic fibroglandular density, bilateral breasts
CPT/HCPCS: 36415; 77063; 77067; 80048

== ENCOUNTER → 2024-03-21 14:15 | Outpatient (BNV) | payer MEDICAID, SELFPAY | PROVIDERS: PCP Family Medicine; Referring Provider Internal Medicine Cardiovascular Disease; Visit Provider Internal Medicine | DX: Z12.31 Encounter for screening mammogram for malignant neoplasm of breast (principal) | CPT/HCPCS: 77063; 77067 ==

== ENCOUNTER 2024-03-22 11:02 | Outpatient (AMB) | payer MEDICAID, SELFPAY ==
--- NOTE | 2024-03-22 11:06 | A.OFFVIS_ITS ---
Vital Signs 03/22/24 11:08 Height 5 ft 1 in Weight 166 lb 3.657 oz BMI 31.4 BP 100/74 Blood Pressure Location Rt brachial Position Sitting Pulse 84 Pulse Source Pulse Oximeter Intake Visit Reasons: Low TSH level Intake Note: New patient present today for Low TSH level office visit. Environmental Monitoring Specialist Required: Yes Environmental Monitoring Specialist Language: Hand Potter Services: Environmental Monitoring Specialist Present Environmental Monitoring Specialist Name: Ilsa Information Interpreted: non-clinical & clinical Accompanied by: Self / Same As Patient Allergies enalapril [ENALAPRIL] Allergy (Unknown, Verified 03/22/24 11:08) UNK hydrochlorothiazide [HYDROCHLOROTHIAZIDE] Allergy (Unknown, Verified 03/22/24 11:08) UNK lisinopril [LISINOPRIL] Allergy (Unknown, Verified 03/22/24 11:08) HIVES,THROAT SWELLING metoprolol [METOPROLOL] Allergy (Unknown, Verified 03/22/24 11:08) UNK metronidazole [METRONIDAZOLE] Allergy (Unknown, Verified 03/22/24 11:08) UNK Oxycodone HCl Allergy (Unknown, Uncoded 03/22/24 11:08) vomiting Medication List - Last Reconciled 03/22/24 by Aneta Leblanc MD acetaminophen ER 650 mg PO BID PRN alcohol swabs (Alcohol Prep Pads) 0 pad topical DAILY amlodipine 7.5 mg PO DAILY aspirin (Adult Aspirin Regimen) 81 mg PO DAILY baclofen 10 mg PO TID PRN blood sugar diagnostic (FreeStyle Lite Strips) As directed buspirone 15 mg PO BID cetirizine 10 mg PO DAILY cholecalciferol (vitamin D3) 50 mcg PO DAILY clotrimazole 1% appl topical dapagliflozin propanediol (Farxiga) 5 mg PO QAM diclofenac sodium 1% 2 grams topical BID PRN diphenhydramine HCl (Benadryl) 25 mg PO TID PRN fluconazole (Diflucan) 150 mg PO Q3D 2 doses gabapentin 300 mg PO BEDTIME hydrocortisone 2.5% topical QID PRN ibuprofen (IBU) 600 mg PO Q8H PRN insulin glargine U-300 conc (Toujeo Max U-300 SoloStar) 40 units subcut DAILY miconazole nitrate (Monistat 3) 1 appful vaginal BEDTIME 3 days miconazole nitrate 2% appl topical BID nystatin (Nyamyc) topical BID omega 5-uzr-xuf-fish oil 300 mg (120 mg- 180mg)-1,000 mg 1 cap PO BID omeprazole 20 mg PO BID 14 days pravastatin 40 mg PO BEDTIME sennosides (senna) 8.6 mg PO BEDTIME HPI Comments Details: 53 years old female here today for initial evaluation of subclinical hyperthyroidism. Patient was complaining of hair loss which prompted thyroid work up , labs from 01/06/24 showed low TSH of 0.16 and normal free T4 of 0.89. 01/23/24 Tsh 0.22 , free T4 again normal 0.85 and total T3 89. Patient currently denies diarrhea, palpitation, anxiety, mood changes, low energy, changes in appearance of eyes or vision changes, tremors, increased diaphoresis or dry skin. ? Reports hair loss , heat tolerance. Has constipation. Losing weight on GLP 1 agonist has lost 30 lbs. Patient denies any difficulty swallowing, pain on swallowing or voice changes or difficulty breathing. Patient denies any history of childhood neck radiation. Denies having ever used lithium, amiodarone. She is on biotin supplemetns twice a week. No preceding viral illness No exposure to contrast agenets no history of osteoporosis , has a history of tailbone fracture from fall no other fractures HAs history of CAD , on aspirin Patient denies any family history of thyroid cancer or thyroid disease. Review of systems Constitutional: no fevers, chills , no tremors HEENT: no changes in vision Cardiac: No chest pain, discomfort or palpitations. Pulmonary: No SOB GI:No abdominal pain, no nausea or vomiting, no anorexia, no blood in stool : no burning micturition, dysuria or increase in urinary frequency Physical exam General: sitting comfortably in no acute distress HEENT: normocephalic/atraumatic, moist oral mucosa Neck: supple, symmetrical, no thyromegaly , no dorsocervical or supraclavicular fat pads Cardiac: normal heart sounds Pulm: normal breath sounds B/L, no added breath sounds Abd: not distended, no tenderness Extremities: no edema, no signs of myxedema, no tremors Neuro: AAO x3, Speech: normal, no facial droop, moving all 4 extremities Laboratory Tests 02/08/18 10/03/18 12/21/18 11:20 10:15 14:20 Free T4 1.05 0.87 Total T3 114 TSH Free T3 09/29/22 02/15/23 01/06/24 11:39 10:16 14:02 Free T4 0.82 0.89 Total T3 112 TSH 0.22 L 0.37 0.16 L Free T3 01/23/24 15:28 Free T4 0.85 Total T3 89 TSH 0.22 L Free T3 3.1 PFSH Medical History Pre-operative cardiovascular examination Chest discomfort Nausea CAD (coronary artery disease) Right hand pain Numbness and tingling in left hand Trigger finger, right Hyperlipidemia Diabetes GERD (gastroesophageal reflux disease) Depression Anxiety HTN (hypertension) Surgical History Hx of colonoscopy History of hand surgery Family History Maternal Aunt Dialysis patient Hypertension Diabetes Mother Hypertension Diabetes Father Diabetes Hypertension Social History Alcohol intake: never Patient Tobacco Use Status: Never used Tobacco Cigarettes Per Day: 2 Current occupational status: unemployed Current occupation: right handed Physical Exam Vital Signs: Last Vital Signs Pulse 84 03/22/24 11:08 BP 100/74 03/22/24 11:08 BMI result Body Mass Index 31.4 Assessment & Plan Assessment & Plan (1) Subclinical hyperthyroidism: Code(s): E05.90 - Thyrotoxicosis, unspecified without thyrotoxic crisis or storm Category: Medical Plan: 53-year-old female here today for initial evaluation of subclinical hyperthyroidism. Patient was complaining of hair loss which prompted thyroid work up , labs from 01/06/24 showed low TSH of 0.16 and normal free T4 of 0.89. 01/23/24 Tsh 0.22 , free T4 again normal 0.85 and total T3 89. Her exam is unr emarkable and she does not have any significant symptoms. She is on biotin supplements I have asked her to stop these at least 4 days prior to repeat labs. Given that she does have history of heart disease she would qualify for treatment for subclinical hyperthyroidism. I will check her antibody levels. Plan: -ordered repeat TSH, free T4 -ordered total T3 TSI, TR AV and TPO antibodies -check CBC and liver panel -follow up in 2 weeks to discuss results Plan I spent 45 minutes in reviewing the record, seeing the patient and documenting in the medical record. Orders: Orders Thyroid Stimulating Hormone Today E05.90 - Thyrotoxicosis, unspecified without thyrotoxic crisis or storm Triiodothyronine T3 Total Today E05.90 - Thyrotoxicosis, unspecified without thyrotoxic crisis or storm Thyroid Peroxidase Antibodies Today E05.90 - Thyrotoxicosis, unspecified without thyrotoxic crisis or storm Free T4 (Free Thyroxine) Today E05.90 - Thyrotoxicosis, unspecified without thyrotoxic crisis or storm Thyroid Stimulating Immunoglob Today E05.90 - Thyrotoxicosis, unspecified without thyrotoxic crisis or storm Thyrotropin Receptor Antibody Today E05.90 - Thyrotoxicosis, unspecified without thyrotoxic crisis or storm Complete Blood Count Auto Diff Today E05.90 - Thyrotoxicosis, unspecified without thyrotoxic crisis or storm Liver Panel Today E05.90 - Thyrotoxicosis, unspecified without thyrotoxic crisis or storm Coding Level of Care Code New Pt Level 4 (61896) Diagnoses Subclinical hyperthyroidism E05.90 Time Spent (min) 30
[2024-03-22 11:08] VITALS: BP 100/74; PULSE 84; BMI 31.4
== END 2024-03-22 11:44 | disposition home or self-care (01) ==
PROVIDERS: PCP Family Medicine; Visit Provider Student in an Organized Health Care Education/Training Program
DX: E05.90 Thyrotoxicosis, unspecified without thyrotoxic crisis or storm (principal)
CPT/HCPCS: 99204

== ENCOUNTER → 2024-03-22 11:02 | Outpatient (BNVA) | payer MEDICAID, SELFPAY | PROVIDERS: PCP Family Medicine; Visit Provider Student in an Organized Health Care Education/Training Program | DX: E05.90 Thyrotoxicosis, unspecified without thyrotoxic crisis or storm (principal) | CPT/HCPCS: 99202 ==

== ENCOUNTER 2024-03-25 15:39 | Emergency (ER) | payer MEDICAID, SELFPAY ==
--- NOTE | ~2024-03-25 | XR_ITS ---
CLINICAL HISTORY: pain 1 view abdomen Comparison: None Findings: Nonobstructive bowel gas pattern. Small nonspecific calcifications adjacent to right L5 transverse process. Lung bases are clear. Compression of T10 vertebral body and degenerative changes of the spine. IMPRESSION: 1. Nonobstructive bowel gas pattern. 2. Small calcifications adjacent to right L5 transverse process. If right ureteral stones clinically suspected follow-up noncontrast CT abdomen and pelvis should be obtained. This document has been electronically signed by: Beronna Coon MD on 03/25/2024 22:35:30
[2024-03-25 17:11] VITALS: BP 135/68; PULSE 85; RESP 18; TEMP 36.7; O2SAT 98; BMI 31.9
--- NOTE | 2024-03-25 17:17 | ED_ITS ---
HPI - Abdominal Pain General Chief Complaint: Abdominal Pain Stated Complaint: abd pain, diarrhea Time Seen by Provider: 03/25/24 21:05 Source: patient Limitations: language barrier History of Present Illness ED Provider: Rimma Rojo PA-C HPI narrative: 53-year-old female with a history of morbid obesity, diabetes, hypertension, hyperlipidemia, coronary artery disease, arthritis, chronic pain, presents with the abdominal pain x2 weeks. Patient states she is currently on Ozempic, this is the 4th medication within the same drug class that she has tried for weight loss. Patient has had ongoing abdominal discomfort, indigestion, nausea and diarrhea. Patient states that she has noted that her stool is now black; she does admit to using Pepto-Bismol. Denies new symptoms or fever. Related Data Home Medications ?Medication ?Instructions ?Recorded ?Confirmed gabapentin 300 mg capsule 300 mg PO BEDTIME 02/04/20 03/22/24 amlodipine 5 mg tablet 7.5 mg PO DAILY 03/22/22 03/22/24 cholecalciferol (vitamin D3) 50 50 mcg PO DAILY 03/22/22 03/22/24 mcg (2,000 unit) tablet dapagliflozin propanediol 5 mg 5 mg PO QAM 03/22/22 03/22/24 tablet (Farxiga) hydrocortisone 2.5 % topical cream topical QID PRN 03/22/22 03/22/24 with perineal applicator omega-3 300 mg-dha 120 mg-epa 180 1 cap PO BID 03/22/22 03/22/24 mg-fish oil 1,000 mg capsule pravastatin 40 mg tablet 40 mg PO BEDTIME 03/22/22 03/22/24 aspirin 81 mg tablet,delayed 81 mg PO DAILY 04/30/22 03/22/24 release (Adult Aspirin Regimen) blood sugar diagnostic (FreeStyle #10 ea 04/30/22 03/22/24 Lite Strips) diclofenac sodium 1 % topical gel 2 g topical BID PRN pain 04/30/22 03/22/24 miconazole nitrate 2 % topical appl topical BID 04/30/22 03/22/24 cream sennosides 8.6 mg capsule (senna) 8.6 mg PO BEDTIME 04/30/22 03/22/24 acetaminophen 650 mg 650 mg PO BID PRN fever 06/11/22 03/22/24 tablet,extended release alcohol swabs (Alcohol Prep Pads) 0 pad topical DAILY 06/11/22 03/22/24 cetirizine 10 mg tablet 10 mg PO DAILY 09/01/22 03/22/24 baclofen 10 mg tablet 10 mg PO TID PRN 06/22/23 03/22/24 ibuprofen 600 mg tablet (IBU) 600 mg PO Q8H PRN pain 06/22/23 03/22/24 buspirone 15 mg tablet 15 mg PO BID 07/18/23 03/22/24 clotrimazole 1 % topical cream appl topical 07/18/23 03/22/24 nystatin 100,000 unit/gram topical topical BID 07/18/23 03/22/24 powder (Nyamyc) insulin glargine U-300 conc 300 40 unit subcut DAILY 10/25/23 03/22/24 unit/mL (3 mL) subcutaneous pen (Toujeo Max U-300 SoloStar) Previous Rx's ?Medication ?Instructions ?Recorded omeprazole 20 mg capsule,delayed 20 mg PO BID 14 days #28 caps 04/30/22 release diphenhydramine HCl 25 mg capsule 25 mg PO TID PRN itching #20 caps 10/03/22 (Benadryl) miconazole nitrate 4 % (200 mg)-2 1 appful vaginal BEDTIME 3 days 10/03/22 % (9 gram)vaginal,prefill #24 grams appl,cream (Monistat 3) fluconazole 150 mg tablet 150 mg PO Q3D 2 doses #2 tabs 11/20/22 (Diflucan) Allergies Allergy/AdvReac Type Severity Reaction Status Date / Time enalapril [ENALAPRIL] Allergy Unknown UNK Verified 03/25/24 17:11 hydrochlorothiazide Allergy Unknown UNK Verified 03/25/24 17:11 [HYDROCHLOROTHIAZIDE] lisinopril [LISINOPRIL] Allergy Unknown HIVES,THROAT Verified 03/25/24 17:11 SWELLING metoprolol [METOPROLOL] Allergy Unknown UNK Verified 03/25/24 17:11 metronidazole [METRONIDAZOLE] Allergy Unknown UNK Verified 03/25/24 17:11 Oxycodone HCl Allergy Unknown vomiting Uncoded 03/22/24 11:08 Review of Systems Review of Systems Yes all other systems are reviewed and are negative Constitutional: Denies fatigue and Denies fever(s) Cardiovascular: Denies chest pain and Denies dyspnea Respiratory: Denies dyspnea Gastrointestinal: Reports abdominal pain, Reports belching, Reports melena, Reports bloating, Reports GI cramping, Reports dyspepsia, Reports heartburn, Reports diarrhea, Reports nausea and Denies vomiting Endocrine: Denies fatigue PMFSH Past Medical History Attestation statement: The following information was validated with the patient. Medical History (Updated 03/25/24 @ 23:41 by LANDY Ann) Subclinical hyperthyroidism Pre-operative cardiovascular examination Chest discomfort Nausea CAD (coronary artery disease) Right hand pain Numbness and tingling in left hand Trigger finger, right Hyperlipidemia Diabetes GERD (gastroesophageal reflux disease) Depression Anxiety HTN (hypertension) Surgical History Hx of colonoscopy History of hand surgery Family History Family History Maternal Aunt Dialysis patient Hypertension Diabetes Mother Hypertension Diabetes Father Diabetes Hypertension Social History Social History Alcohol intake: never Patient Tobacco Use Status: Never used Tobacco Cigarettes Per Day: 2 Advance Directives: No Advance Directives Information Provided: No Do you have a plan to hurt others: No Plan Current occupational status: unemployed Current occupation: right handed Physical Exam ED Vital Signs: Vital Signs - 24 hr 03/25/24 17:11 03/25/24 19:58 03/25/24 21:57 Temperature 98.1 F 98.4 F 98.2 F Pulse Rate 85 68 87 Respiratory Rate 18 16 18 Blood Pressure 135/68 139/63 138/89 Pulse Oximetry 98 98 97 Oxygen Delivery Method Room Air Room Air Room Air 03/25/24 22:00 Temperature 98.3 F Pulse Rate 78 Respiratory Rate 18 Blood Pressure 137/83 Pulse Oximetry 99 Oxygen Delivery Method Room Air BMI result Body Mass Index 31.9 Const Other: Alert, well-appearing, sitting up eating in bed Orientation/consciousness: patient oriented x3 Resp Effort & Inspection: normal respiratory effort Cardio Other: Normal peripheral perfusion GI Other: Abdomen is soft, nondistended nontender obese no guarding, stool dark brown guaiac-negative Skin Other: Warm dry no rash Neuro General: patient oriented x3, no focal motor deficits and CN's II-XI intact bilaterally Psych Other: Cooperative Course Course Course Narrative: This is an RME performed by Muriel Seymour CNP: Additional HPI, ROS, PE not included below will be deferred to primary provider. Patient is a 53-year-old female who presents emergency department for evaluation of abdominal pain, nausea, dizziness, headaches, and reports of stools to be black in color she did however take Pepto-Bismol due to her upset stomach. She states that she began taking Ozempic (semaglutide) over the past 2 weeks, was previously taking when jar (2 his appetite) and would typically experience acid reflux with that medication. She denies any known sick contacts. Denies genitourinary symptoms fevers or chills. Plan: Serum labs, occult stool Medical Decision Making Medical Decision Making MDM Narrative: 53-year-old female with a history of morbid obesity, diabetes, hypertension, hyperlipidemia, coronary artery disease, arthritis, chronic pain, presents with the abdominal pain x2 weeks. Patient states she is currently on Ozempic, this is the 4th medication within the same drug class that she has tried for weight loss. Patient has had ongoing abdominal discomfort, indigestion, nausea and diarrhea. Patient states that she has noted that her stool is now black; she does admit to using Pepto-Bismol. Denies new symptoms or fever. Problem: Obesity diabetes History: Per patient I have considered the following differential diagnoses: Side-effect profile from Ozempic, gastroenteritis, traveler's diarrhea, C diff, diverticulitis Plan: Patient is having numerous side effects from the Ozempic, this has been ongoing for 2 weeks. Screening labs were obtained and they are normal. She has no risk factors for traveler's diarrhea or C diff, she has no focal pain to suggest diverticulitis. Likely not gastroenteritis, again given she developed symptoms after starting the Ozempic and she has had them for 2 weeks. Furthermore, she is sitting up eating and drinking in bed. Obtaining a KUB. She does not require advanced imaging I have independently reviewed the following tests: Labs: No leukocytosis, not anemic, no electrolyte abnormalities noted, urine not infected, viral panel negative KUB:IMPRESSION: 1. Nonobstructive bowel gas pattern. 2. Small calcifications adjacent to right L5 transverse process. If right ureteral stones clinically suspected follow-up noncontrast CT abdomen and pelvis should be obtained. This document has been electronically signed by: Breonna Coon MD on 03/25/2024 22:35:30 Lab Data 03/25/24 17:29 03/25/24 17:29 Labs: Lab Results 03/25/24 03/25/24 03/25/24 Range/Units 17:29 17:30 20:12 WBC 7.5 (4.8-10.8) X10*3/uL RBC 4.62 (4.20-5.50) X10*6/uL Hgb 14.1 (12.0-16.0) g/dl Hct 41.1 (37.0-47.0) % MCV 89.0 (80.0-98.0) fL MCH 30.5 (27.0-33.0) pg MCHC 34.3 (31.0-35.0) g/dl RDW 13.2 (11.0-16.0) % Plt Count 229 (160-400) X10*3/uL MPV 10.8 (9.4-12.3) fL Immature Gran % (Auto) 0.3 (0.0-0.4) % Neut % (Auto) 51.6 (45-73) % Lymph % (Auto) 37.6 (20-40) % [place] % (Auto) 6.9 (2-11) % Eos % (Auto) 3.1 (0-4) % Baso % (Auto) 0.5 (0-2) % Lymph # (Auto) 2.8 (1.2-4.9) X10*3/uL [place] # (Auto) 0.5 (0.1-1.2) X10*3/uL Eos # (Auto) 0.2 (0.0-0.4) X10*3/uL Baso # (Auto) 0.0 (0.0-0.2) X10*3/uL Abs Immat Gran (auto) 0.02 (0.00-0.03) X10*3/uL Absolute Neuts (auto) 3.9 (2.0-8.3) x10*3/uL Absolute Nucleated RBC 0.000 (0.0-0.012) X10*3/uL Nucleated RBC % (auto) 0.0 (0.0-0.2) /100WBC Sodium 141 (135-145) mmol/L Potassium 4.5 (3.3-5.1) mmol/L Chloride 108 (96-108) mmol/L Carbon Dioxide 28 (22-29) mmol/L Anion Gap 10 L (12-20) BUN 16 (9-16) mg/dL Creatinine 0.75 (0.5-1.4) mg/dL Estim Creat Clear Calc 81.3 Estimated GFR > 60 Random Glucose 89 (60-115) mg/dL Calcium 9.5 (8.4-10.2) mg/dL Magnesium 2.1 (1.6-2.6) mg/dL Total Bilirubin 0.3 (0.0-1.0) mg/dL AST 39 H (5-31) U/L ALT 51 H (0-31) U/L Alkaline Phosphatase 68 (39-117) U/L Total Protein 7.7 (6.5-8.0) g/dL Albumin 4.3 (3.5-5.0) g/dL Lipase 29 (8-78) U/L Urine Color Yellow Urine Appearance Clear Urine pH 5.5 (5.0-9.0) Ur Specific [place] >= 1.030 H (1.005-1.025) Urine Protein Negative (Neg-Trace) mg/dL Urine Glucose (UA) >=1000 H (Negative) mg/dL Urine Ketones Negative (Negative) mg/dL Urine Blood Negative (Negative) Urine Nitrite Negative (Negative) Ur Leukocyte Esterase Negative (Negative) Urine RBC 0-2 (0-2) /HPF Urine WBC 0-5 (0-5) /HPF Ur Squamous Epith Cells 0-2 (0-2) /HPF Urine Bacteria None Seen (None Seen) Hyaline Casts 0-2 (0-2) /LPF Influenza Type A (PCR) NEGATIVE (Negative) Influenza Type B (PCR) NEGATIVE (Negative) RSV RNA Qual (PCR) NEGATIVE (Negative) SARS-CoV-2 RNA (RT-PCR) NEGATIVE (Negative) Discharge Plan Discharge Clinical Impression: Diarrhea, Abdominal pain Patient Disposition: Home, Self-Care Instructions: Abdominal Pain (ED), Nutrition Tips for Relief of Diarrhea (ED) Additional Instructions: All of your screening labs were normal, there were no acute findings on the x- ray, your stool does not have blood in it. I do believe the all of the symptoms you are experiencing are related to the use of the Ozempic. You are going to have to decide if you want to continue taking this medication, call your primary care provider to discuss these issues. Prescriptions: No Action fluconazole [Diflucan] 150 mg tablet 150 mg PO Q3D Qty: 2 0RF miconazole nitrate [Monistat 3] 4 % (200 mg)- 2 % (9 gram) comb pack,prefill appl, cream 1 appful vaginal BEDTIME 3 Days Qty: 24 0RF Rx Instructions: as vaginal cream diphenhydramine HCl [Benadryl] 25 mg capsule 25 mg PO TID PRN (Reason: itching) Qty: 20 0RF gabapentin 300 mg capsule 300 mg PO BEDTIME cholecalciferol (vitamin D3) 50 mcg (2,000 unit) tablet 50 mcg PO DAILY Farxiga 5 mg tablet 5 mg PO QAM amlodipine 5 mg tablet 7.5 mg PO DAILY pravastatin 40 mg tablet 40 mg PO BEDTIME omega 2-ccj-iqh-fish oil 300 mg (120 mg- 180mg)-1,000 mg capsule 1 cap PO BID hydrocortisone 2.5 % cream with perineal applicator topical QID PRN miconazole nitrate 2 % cream topical BID diclofenac sodium 1 % gel 2 g topical BID PRN (Reason: pain) (DME) FreeStyle Lite Strips Strip See Rx Instructions .ROUTE TID Qty: 10 Rx Instructions: As directed senna 8.6 mg capsule 8.6 mg PO BEDTIME aspirin [Adult Aspirin Regimen] 81 mg tablet,delayed release (DR/EC) 81 mg PO DAILY omeprazole 20 mg capsule,delayed release(DR/EC) 20 mg PO BID 14 Days Qty: 28 0RF acetaminophen 650 mg tablet extended release 650 mg PO BID PRN (Reason: fever) alcohol swabs [Alcohol Prep Pads] Pads, Medicated 0 pad topical DAILY cetirizine 10 mg tablet 10 mg PO DAILY insulin glargine U-300 conc [Toujeo Max U-300 SoloStar] 300 unit/mL (3 mL) insulin pen 40 unit subcut DAILY baclofen 10 mg tablet 10 mg PO TID PRN ibuprofen [IBU] 600 mg tablet 600 mg PO Q8H PRN (Reason: pain) buspirone 15 mg tablet 15 mg PO BID clotrimazole 1 % cream topical nystatin [Nyamyc] 100,000 unit/gram powder topical BID Print Language: Tamazight
[2024-03-25 17:55] LABS: MANUAL DIFF FLAG NO
[2024-03-25 18:02] LABS: Basophils Percent Auto 0.5 % (0-2); Eosinophils Absolute Auto 0.2 X10*3/uL (0.0-0.4); Eosinophils Percent Auto 3.1 % (0-4); Hematocrit 41.1 % (37.0-47.0); Hemoglobin 14.1 g/dl (12.0-16.0); Imm Gran Abs Auto 0.02 X10*3/uL (0.00-0.03); Imm Gran Pct Auto 0.3 % (0.0-0.4); Lymphocytes Absolute Auto 2.8 X10*3/uL (1.2-4.9); Lymphocytes Percent Auto 37.6 % (20-40); Mean Corpuscular HGB Conc 34.3 g/dl (31.0-35.0); Mean Corpuscular Hemoglobin 30.5 pg (27.0-33.0); Mean Platelet Volume 10.8 fL (9.4-12.3); Monocytes Absolute Auto 0.5 X10*3/uL (0.1-1.2); Monocytes Percent Auto 6.9 % (2-11); Neutrophils Absolute Auto 3.9 x10*3/uL (2.0-8.3); Neutrophils Percent Auto 51.6 % (45-73); Platelet Count 229 X10*3/uL (160-400); Red Blood Count 4.62 X10*6/uL (4.20-5.50); Red Cell Distribution Width 13.2 % (11.0-16.0); White Blood Count 7.5 X10*3/uL (4.8-10.8)
[2024-03-25 18:27] LABS: Alanine Aminotransferase 51 U/L (0-31); Albumin Level 4.3 g/dL (3.5-5.0); Alkaline Phosphatase 68 U/L (39-117); Anion Gap 10 (12-20); Aspartate Amino Transferase 39 U/L (5-31); Bilirubin Total 0.3 mg/dL (0.0-1.0); Blood Urea Nitrogen 16 mg/dL (9-16); Calcium 9.5 mg/dL (8.4-10.2); Carbon Dioxide 28 mmol/L (22-29); Chloride 108 mmol/L (96-108); Creatinine Clr Calc Pharmacy 81.3; Estimated Glomerular Filt Rate > 60; Glucose Random 89 mg/dL (60-115); Lipase 29 U/L (8-78); Magnesium 2.1 mg/dL (1.6-2.6); Potassium 4.5 mmol/L (3.3-5.1); Sodium 141 mmol/L (135-145); Total Protein 7.7 g/dL (6.5-8.0)
[2024-03-25 18:47] LABS: Influenza A PCR NEGATIVE (Negative); Influenza B PCR NEGATIVE (Negative); Resp Syncy Virus RNA Qual PCR NEGATIVE (Negative); SARS COV2 PCR INHOUSE NEGATIVE (Negative)
[2024-03-25 19:58] VITALS: BP 139/63; PULSE 68; RESP 16; TEMP 36.9; O2SAT 98
[2024-03-25 20:21] LABS: Appearance Urine Clear; Color Urine Yellow; Glucose Urine UA >=1000 mg/dL (Negative); Leukocyte Esterase Urine Negative (Negative); Nitrite Urine Negative (Negative); PH 5.5 (5.0-9.0); Specific Gravity - Urine >= 1.030 (1.005-1.025); UMIC TRIGGER UACC YES; Urine Blood Negative (Negative); Urine Ketones Negative (Negative); Urine Protein Negative (Neg-Trace)
[2024-03-25 20:31] LABS: Bacteria Urine None Seen (None Seen); Hyaline Casts Urine 0-2 /LPF (0-2); RBC Urine 0-2 /HPF (0-2); Squamous Epithelial Cell Urine 0-2 /HPF (0-2); WBC Urine 0-5 /HPF (0-5)
[2024-03-25 21:57] VITALS: BP 138/89; PULSE 87; RESP 18; TEMP 36.8; O2SAT 97
[2024-03-25 22:00] VITALS: BP 137/83; PULSE 78; RESP 18; TEMP 36.8; O2SAT 99
[2024-03-26 00:06] VITALS: BP 137/83; PULSE 78; RESP 18; TEMP 36.8; O2SAT 99
== END 2024-03-26 00:07 | disposition home or self-care (01) ==
PROVIDERS: Nurse Practitioner Family; Emergency Provider Emergency Medicine Emergency Medical Services; PCP Family Medicine
DX: R19.7 Diarrhea, unspecified (principal); R10.2 Pelvic and perineal pain; I10 Essential (primary) hypertension; I25.10 Atherosclerotic heart disease of native coronary artery without angina pectoris; R11.0 Nausea; Z03.818 Encounter for observation for suspected exposure to other biological agents ruled out; Z79.84 Long term (current) use of oral hypoglycemic drugs; Z79.899 Other long term (current) drug therapy
CPT/HCPCS: 0241U; 74018; 80053; 81001; 83690; 83735; 85025; 99283

== ENCOUNTER → 2024-03-25 21:49 | Outpatient (BNV) | payer MEDICAID, SELFPAY | PROVIDERS: Emergency Provider Emergency Medicine Emergency Medical Services; PCP Family Medicine; Visit Provider Specialist | DX: R10.9 Unspecified abdominal pain (principal) | CPT/HCPCS: 74018 ==

== ENCOUNTER 2024-03-27 13:32 | Outpatient (REF) | payer MEDICAID, SELFPAY ==
[2024-03-27 13:41] LABS: MANUAL DIFF FLAG NO
[2024-03-27 13:47] LABS: Basophils Percent Auto 0.5 % (0-2); Eosinophils Absolute Auto 0.3 X10*3/uL (0.0-0.4); Imm Gran Abs Auto 0.01 X10*3/uL (0.00-0.03); Imm Gran Pct Auto 0.2 % (0.0-0.4); Lymphocytes Absolute Auto 2.1 X10*3/uL (1.2-4.9); Lymphocytes Percent Auto 31.6 % (20-40); Mean Corpuscular HGB Conc 34.1 g/dl (31.0-35.0); Mean Corpuscular Hemoglobin 30.2 pg (27.0-33.0); Mean Corpuscular Volume 88.4 fL (80.0-98.0); Mean Platelet Volume 10.8 fL (9.4-12.3); Monocytes Absolute Auto 0.4 X10*3/uL (0.1-1.2); Monocytes Percent Auto 6.3 % (2-11); Neutrophils Absolute Auto 3.7 x10*3/uL (2.0-8.3); Neutrophils Percent Auto 57.4 % (45-73); Platelet Count 229 X10*3/uL (160-400); Red Blood Count 4.64 X10*6/uL (4.20-5.50); Red Cell Distribution Width 13.5 % (11.0-16.0); White Blood Count 6.5 X10*3/uL (4.8-10.8)
[2024-03-27 14:58] LABS: Alanine Aminotransferase 47 U/L (0-31); Albumin Level 4.2 g/dL (3.5-5.0); Alkaline Phosphatase 67 U/L (39-117); Aspartate Amino Transferase 37 U/L (5-31); Bilirubin Direct 0.1 mg/dL (0.0-0.5); Bilirubin Total 0.4 mg/dL (0.0-1.0); Thyroid Stimulating Hormone 0.23 uIU/mL (0.32-4.0); Total Protein 7.5 g/dL (6.5-8.0)
[2024-03-28 10:09] LABS: Triiodothyronine T3 Total 118 ng/dL (76-181)
[2024-03-28 21:43] LABS: Thyroid Peroxidase Antibodies 2 IU/mL (<9)
[2024-03-31 20:38] LABS: Thyrotropin Receptor Antibody <1.00 IU/L (<=2.00)
[2024-04-02 15:24] LABS: Thyroid Stimulating Immunoglob <89 % baseline (<140)
== END 2024-03-27 13:33 | disposition home or self-care (01) ==
LOC: HO.LAB 13:32
PROVIDERS: PCP Family Medicine; Visit Provider Student in an Organized Health Care Education/Training Program
DX: E05.90 Thyrotoxicosis, unspecified without thyrotoxic crisis or storm (principal)
CPT/HCPCS: 36415; 80076; 83520; 84439; 84443; 84445; 84480; 85025; 86376

== ENCOUNTER 2024-04-05 13:59 | Outpatient (AMB) | payer MEDICAID, SELFPAY ==
--- NOTE | 2024-04-05 14:02 | MHC.OFFVIS ---
Vital Signs 04/05/24 14:05 Height 5 ft 1 in Weight 169 lb 12.095 oz BMI 32.1 BP 120/72 Blood Pressure Location Lt brachial Position Sitting Pulse 80 Pulse Source Pulse Oximeter Intake Visit Reasons: Low TSH level Intake Note: Patient present today for Low TSH level office visit. Sheetmetal Patternmaker Required: Yes Sheetmetal Patternmaker Language: Power Electronics Engineer Services: Sheetmetal Patternmaker Present Sheetmetal Patternmaker Name: Meng [id number] Information Interpreted: non-clinical & clinical Accompanied by: Self / Same As Patient Allergies enalapril [ENALAPRIL] Allergy (Unknown, Verified 04/05/24 14:07) UNK hydrochlorothiazide [HYDROCHLOROTHIAZIDE] Allergy (Unknown, Verified 04/05/24 14:07) UNK lisinopril [LISINOPRIL] Allergy (Unknown, Verified 04/05/24 14:07) HIVES,THROAT SWELLING metoprolol [METOPROLOL] Allergy (Unknown, Verified 04/05/24 14:07) UNK metronidazole [METRONIDAZOLE] Allergy (Unknown, Verified 04/05/24 14:07) UNK Oxycodone HCl Allergy (Unknown, Uncoded 04/05/24 14:07) vomiting Medication List - Last Reconciled 04/05/24 by Aneta Leblanc MD acetaminophen ER 650 mg PO BID PRN alcohol swabs (Alcohol Prep Pads) 0 pad topical DAILY amlodipine 7.5 mg PO DAILY aspirin (Adult Aspirin Regimen) 81 mg PO DAILY baclofen 10 mg PO TID PRN blood sugar diagnostic (FreeStyle Lite Strips) As directed buspirone 15 mg PO BID cetirizine 10 mg PO DAILY cholecalciferol (vitamin D3) 50 mcg PO DAILY clotrimazole 1% appl topical dapagliflozin propanediol (Farxiga) 5 mg PO QAM diclofenac sodium 1% 2 grams topical BID PRN diphenhydramine HCl (Benadryl) 25 mg PO TID PRN fluconazole (Diflucan) 150 mg PO Q3D 2 doses gabapentin 300 mg PO BEDTIME hydrocortisone 2.5% topical QID PRN ibuprofen (IBU) 600 mg PO Q8H PRN insulin glargine U-300 conc (Toujeo Max U-300 SoloStar) 40 units subcut DAILY miconazole nitrate (Monistat 3) 1 appful vaginal BEDTIME 3 days miconazole nitrate 2% appl topical BID nystatin (Nyamyc) topical BID omega 2-wwj-dki-fish oil 300 mg (120 mg- 180mg)-1,000 mg 1 cap PO BID omeprazole 20 mg PO BID 14 days pravastatin 40 mg PO BEDTIME sennosides (senna) 8.6 mg PO BEDTIME HPI Comments Details: 53 years old female here today for follow up of subclinical hyperthyroidism. HPI from prior visit Patient was complaining of hair loss which prompted thyroid work up , labs from 01/06/24 showed low TSH of 0.16 and normal free T4 of 0.89. 01/23/24 Tsh 0.22 , free T4 again normal 0.85 and total T3 89. Patient currently denies diarrhea, palpitation, anxiety, mood changes, low energy, changes in appearance of eyes or vision changes, tremors, increased diaphoresis or dry skin. ? Reports hair loss , heat tolerance. Has constipation. Losing weight on GLP 1 agonist has lost 30 lbs. Patient denies any difficulty swallowing, pain on swallowing or voice changes or difficulty breathing. Patient denies any history of childhood neck radiation. Denies having ever used lithium, amiodarone. She is on biotin supplemetns twice a week. No preceding viral illness No exposure to contrast agents no history of osteoporosis , has a history of tailbone fracture from fall no other fractures HAs history of CAD , on aspirin Patient denies any family history of thyroid cancer or thyroid disease. Interval history Labs 03/27/2024 showed TSH still low at 0.23, with normal free T4 and total T3. TSI, TPO in TR AB antibodies negative. Physical exam General: sitting comfortably in no acute distress HEENT: normocephalic/atraumatic, moist oral mucosa Neck: supple, symmetrical, no thyromegaly , no dorsocervical or supraclavicular fat pads Cardiac: normal heart sounds Pulm: normal breath sounds B/L, no added breath sounds Abd: not distended, no tenderness Extremities: no edema, no signs of myxedema, no tremors Neuro: AAO x3, Speech: normal, no facial droop, moving all 4 extremities Laboratory Tests 02/08/18 10/03/18 12/21/18 11:20 10:15 14:20 Free T4 1.05 0.87 Total T3 114 TSH Free T3 09/29/22 02/15/2324 11:39 10:16 14:02 Free T4 0.82 0.89 Total T3 112 TSH 0.22 L 0.37 0.16 L Free T3 01/23/24 15:28 Free T4 0.85 Total T3 89 TSH 0.22 L Free T3 3.1 Laboratory Tests 02/08/18 10/03/18 12/21/18 11:20 10:15 14:20 WBC Neut % (Auto) Absolute Neuts (auto) AST ALT Alkaline Phosphatase Free T4 1.05 0.87 Total T3 114 Thyroid Stim Immunoglob <89 TSH Thyroglobulin Antibody <1 Thyroid Peroxidase Ab 10 H TSH Receptor Antibody <6.0 TSH Receptor Ab 09/29/22 02/15/23 01/06/24 11:39 10:16 14:02 WBC Neut % (Auto) Absolute Neuts (auto) AST ALT Alkaline Phosphatase Free T4 0.82 0.89 Total T3 112 Thyroid Stim Immunoglob TSH 0.22 L 0.37 0.16 L Thyroglobulin Antibody Thyroid Peroxidase Ab TSH Receptor Antibody TSH Receptor Ab 01/23/24 03/25/24 03/27/24 15:28 17:29 13:40 WBC 6.5 Neut % (Auto) 57.4 Absolute Neuts (auto) 3.7 AST 39 H 37 H ALT 51 H 47 H Alkaline Phosphatase 68 67 Free T4 0.85 0.90 Total T3 89 118 Thyroid Stim Immunoglob <89 TSH 0.22 L 0.23 L Thyroglobulin Antibody Thyroid Peroxidase Ab 2 TSH Receptor Antibody TSH Receptor Ab <1.00 [facility] Medical History (Updated 03/27/24 @ 00:01 by Jose M Steven) Subclinical hyperthyroidism Pre-operative cardiovascular examination Chest discomfort Nausea CAD (coronary artery disease) Right hand pain Numbness and tingling in left hand Trigger finger, right Hyperlipidemia Diabetes GERD (gastroesophageal reflux disease) Depression Anxiety HTN (hypertension) Surgical History Hx of colonoscopy History of hand surgery Family History Maternal Aunt Dialysis patient Hypertension Diabetes Mother Hypertension Diabetes Father Diabetes Hypertension Social History Alcohol intake: never Patient Tobacco Use Status: Never used Tobacco Cigarettes Per Day: 2 Current occupational status: unemployed Current occupation: right handed Assessment & Plan Assessment & Plan (1) Subclinical hyperthyroidism: Code(s): E0. - Thyrotoxicosis, unspecified without thyrotoxic crisis or storm Category: Medical Plan: 53-year-old female here today for initial evaluation of subclinical hyperthyroidism. Patient was complaining of hair loss which prompted thyroid work up , labs from 01/06/24 showed low TSH of 0.16 and normal free T4 of 0.89. 01/23/24 Tsh 0.22 , free T4 again normal 0.85 and total T3 89. Her exam is unremarkable and she does not have any significant symptoms. She was on biotin supplements I asked her to stop these at least 4 days prior to repeat labs. Given that she does have history of heart disease she would qualify for treatment for subclinical hyperthyroidism. Repeat Labs 03/27/2024 showed TSH still low at 0.23, with normal free T4 and total T3. TSI, TPO in TR AB antibodies negative. Hence she does not have Graves disease. We will order thyroid uptake and scan to confirm presence of toxic multinodular goiter. Plan: -ordered thyroid uptake and scan. -follow up in 5 weeks to discuss results with a set of labs prior to follow up Plan See above Orders: Orders NM thyroid w uptake Today E05.90 - Thyrotoxicosis, unspecified without thyrotoxic crisis or storm Thyroid Stimulating Hormone 4 Weeks E05.90 - Thyrotoxicosis, unspecified without thyrotoxic crisis or storm Free T4 (Free Thyroxine) 4 Weeks E05.90 - Thyrotoxicosis, unspecified without thyrotoxic crisis or storm Triiodothyronine T3 Total 4 Weeks E05.90 - Thyrotoxicosis, unspecified without thyrotoxic crisis or storm Patient Instructions: Do thyroid uptake and scan , someone will call you to schedule this Follow up in 5 weeks to discuss results Do a set of blood work 2-3 days before this follow up Realice yuridia captaci?n y exploraci?n de tiroides, alguien lo llamar? para programar esto. Seguimiento en 5 semanas para discutir los resultados. Realice yuridia serie de an?lisis de taty 2-3 d?as antes de enzo seguimiento. Coding Level of Care Code Est Pt Level 3 (61118) Diagnoses Subclinical hyperthyroidism E05.90
[2024-04-05 14:05] VITALS: BP 120/72; PULSE 80; BMI 32.1
== END 2024-04-05 14:22 | disposition home or self-care (01) ==
PROVIDERS: PCP Family Medicine; Visit Provider Student in an Organized Health Care Education/Training Program
DX: E05.90 Thyrotoxicosis, unspecified without thyrotoxic crisis or storm (principal)
CPT/HCPCS: 99213

== ENCOUNTER → 2024-04-05 13:59 | Outpatient (BNVA) | payer MEDICAID, SELFPAY | PROVIDERS: PCP Family Medicine; Visit Provider Student in an Organized Health Care Education/Training Program | DX: E05.90 Thyrotoxicosis, unspecified without thyrotoxic crisis or storm (principal) | CPT/HCPCS: 99212 ==

== ENCOUNTER 2024-04-22 15:08 | Emergency (ER) | payer MEDICAID, SELFPAY ==
[2024-04-22 16:15] VITALS: BP 110/63; PULSE 74; RESP 18; TEMP 37; O2SAT 97; BMI 32.2
--- NOTE | 2024-04-22 16:15 | ED_ITS ---
HPI - Female Genitourinary General Chief complaint: Urogenital-Female Stated complaint: ? uti Time Seen by Provider: 04/22/24 19:24 Source: patient Mode of arrival: ambulatory Limitations: no limitations History of Present Illness ED Provider: naty vasquez NP HPI Narrative: Patient is a 54-year-old female who presents emergency department for evaluation since yesterday has been having dysuria, foul-smelling urine, suprapubic pain. Denies hematuria, back/flank pain, fevers, chills, nausea, vomiting, abnormal vaginal bleeding or discharge. Related Data Home Medications ?Medication ?Instructions ?Recorded ?Confirmed gabapentin 300 mg capsule 300 mg PO BEDTIME 02/04/20 04/05/24 amlodipine 5 mg tablet 7.5 mg PO DAILY 03/22/22 04/05/24 cholecalciferol (vitamin D3) 50 50 mcg PO DAILY 03/22/22 04/05/24 mcg (2,000 unit) tablet dapagliflozin propanediol 5 mg 5 mg PO QAM 03/22/22 04/05/24 tablet (Farxiga) hydrocortisone 2.5 % topical cream topical QID PRN 03/22/22 04/05/24 with perineal applicator omega-3 300 mg-dha 120 mg-epa 180 1 cap PO BID 03/22/22 04/05/24 mg-fish oil 1,000 mg capsule pravastatin 40 mg tablet 40 mg PO BEDTIME 03/22/22 04/05/24 aspirin 81 mg tablet,delayed 81 mg PO DAILY 04/30/22 04/05/24 release (Adult Aspirin Regimen) blood sugar diagnostic (FreeStyle #10 ea 04/30/22 04/05/24 Lite Strips) diclofenac sodium 1 % topical gel 2 g topical BID PRN pain 04/30/22 04/05/24 miconazole nitrate 2 % topical appl topical BID 04/30/22 04/05/24 cream sennosides 8.6 mg capsule (senna) 8.6 mg PO BEDTIME 04/30/22 04/05/24 acetaminophen 650 mg 650 mg PO BID PRN fever 06/11/22 04/05/24 tablet,extended release alcohol swabs (Alcohol Prep Pads) 0 pad topical DAILY 06/11/22 04/05/24 cetirizine 10 mg tablet 10 mg PO DAILY 09/01/22 04/05/24 baclofen 10 mg tablet 10 mg PO TID PRN 06/22/23 04/05/24 ibuprofen 600 mg tablet (IBU) 600 mg PO Q8H PRN pain 06/22/23 04/05/24 buspirone 15 mg tablet 15 mg PO BID 07/18/23 04/05/24 clotrimazole 1 % topical cream appl topical 07/18/23 04/05/24 nystatin 100,000 unit/gram topical topical BID 07/18/23 04/05/24 powder (Nyamyc) insulin glargine U-300 conc 300 40 unit subcut DAILY 10/25/23 04/05/24 unit/mL (3 mL) subcutaneous pen (Toujeo Max U-300 SoloStar) Previous Rx's ?Medication ?Instructions ?Recorded omeprazole 20 mg capsule,delayed 20 mg PO BID 14 days #28 caps 04/30/22 release diphenhydramine HCl 25 mg capsule 25 mg PO TID PRN itching #20 caps 10/03/22 (Benadryl) miconazole nitrate 4 % (200 mg)-2 1 appful vaginal BEDTIME 3 days 10/03/22 % (9 gram)vaginal,prefill #24 grams appl,cream (Monistat 3) fluconazole 150 mg tablet 150 mg PO Q3D 2 doses #2 tabs 11/20/22 (Diflucan) cefuroxime axetil 250 mg tablet 250 mg PO BID #9 tabs 04/22/24 fluconazole 150 mg tablet 150 mg PO Q3D 2 doses #2 tabs 04/22/24 Allergies Allergy/AdvReac Type Severity Reaction Status Date / Time enalapril [ENALAPRIL] Allergy Unknown UNK Verified 04/22/24 16:17 hydrochlorothiazide Allergy Unknown UNK Verified 04/22/24 16:17 [HYDROCHLOROTHIAZIDE] lisinopril [LISINOPRIL] Allergy Unknown HIVES,THROAT Verified 04/22/24 16:17 SWELLING metoprolol [METOPROLOL] Allergy Unknown UNK Verified 04/22/24 16:17 metronidazole [METRONIDAZOLE] Allergy Unknown UNK Verified 04/22/24 16:17 Oxycodone HCl Allergy Unknown vomiting Uncoded 04/22/24 16:17 Review of Systems Review of Systems: Yes all other systems are reviewed and are negative PMFSH Past Medical History Attestation statement: The following information was validated with the patient. Source: old records reviewed Medical History Subclinical hyperthyroidism Pre-operative cardiovascular examination Chest discomfort Nausea CAD (coronary artery disease) Right hand pain Numbness and tingling in left hand Trigger finger, right Hyperlipidemia Diabetes GERD (gastroesophageal reflux disease) Depression Anxiety HTN (hypertension) Surgical History Hx of colonoscopy History of hand surgery Family History Family History Maternal Aunt Dialysis patient Hypertension Diabetes Mother Hypertension Diabetes Father Diabetes Hypertension Social History Social History Alcohol intake: never Patient Tobacco Use Status: Never used Tobacco Cigarettes Per Day: 2 Advance Directives: No Advance Directives Information Provided: Yes Do you have a plan to hurt others: No Plan Current occupational status: unemployed Current occupation: right handed Physical Exam Vital Signs: Vital Signs: Last Vital Signs Temp 98.5 F 04/22/24 19:46 Pulse 76 04/22/24 19:46 Resp 18 04/22/24 19:46 BP 120/93 H 04/22/24 19:46 Pulse Ox 98 04/22/24 19:46 O2 Del Method Room Air 04/22/24 16:15 BMI result Body Mass Index 32.2 Appearance: Alert.?Oriented to person, place and time. No acute d istress.?Normal affect. CVS: Heart sounds normal. Normal heart rate and rhythm.? Pulses normal.?? Respiratory: No respiratory distress.? Lung sounds clear to auscultation bilaterally?? Abdomen: Soft and non-tender. Normoactive bowel sounds. No CVAT Skin: Skin warm and dry.? Normal skin color.? ? Neuro: Moves all extremities spontaneously. Sensation intact bilaterally. Ambulates with normal steady gait. Medications Administered Discontinued Medications Generic Name Dose Route Start Last Admin Trade Name Freq PRN Reason Stop Dose Admin Cefuroxime Axetil 250 mg 04/22/24 19:27 04/22/24 19:33 Cefuroxime Axetil 250 Mg Tablet PO 04/22/24 19:28 250 mg ONCE ONE Administration Medical Decision Making Medical Decision Making [facility] Narrative: Patient is a 54 old female past medical history of CAD, hypertension, diabetes, hyperlipidemia, GERD, anxiety, depression who presents emergency department for evaluation of dysuria and suprapubic discomfort as per HPI. She is well- appearing, nontoxic, afebrile no tachycardia. Abdominal examination is benign. No CVAT to suggest pyelonephritis, renal colic such as with nephrolithiasis/hydronephrosis. Urinalysis was obtained with evidence of microscopic hematuria and pyuria concerning for urinary tract infection. She received initial dose of antibiotic in the emergency department remainder prescription was sent to her pharmacy to begin taking tomorrow morning. She does admit to having a history of yeast infections with antibiotic usage, at her request a prescription for Diflucan has been sent to the pharmacy she was instructed on appropriate usage. We discussed worrisome signs and symptoms that would warrant re-evaluation in the emergency department, advised outpatient follow-up with the primary care doctor, staying well hydrated, adequate urinary practices/hygiene. All questions answered. Stable for discharge Differential Diagnosis Differential Diagnoses: The differential diagnosis associated with the presentation includes (See narrative above) Lab Data [facility] Lab Attestation statement: I reviewed the patient's lab results. (See narrative above) Labs: Lab Results 04/22/24 Range/Units 16:58 Urine Color Yellow Urine Appearance Turbid Urine pH 6.0 (5.0-9.0) Ur Specific Bruce >= 1.030 H (1.005-1.025) Urine Protein Trace (Neg-Trace) mg/dL Urine Glucose (UA) >=1000 H (Negative) mg/dL Urine Ketones Negative (Negative) mg/dL Urine Blood Moderate (2+) H (Negative) Urine Nitrite Negative (Negative) Ur Leukocyte Esterase Moderate (2+) H (Negative) Urine RBC 11-20 H (0-2) /HPF Urine WBC >50 H (0-5) /HPF Ur Squamous Epith Cells 0-2 (0-2) /HPF Urine Bacteria Trace (None Seen) Hyaline Casts 0-2 (0-2) /LPF External Record Review External record reviewed: Outpatient record Tests considered The following testing was considered but not selected: CT AP deferred, benign abdominal examination, lower suspicion for acute renal pathology Prescription Management I considered prescription management with: Antibiotic (See narrative above) Chronic Conditions Patient?s care impacted by: Other (See narrative above) Discharge Plan Discharge Clinical Impression: UTI (urinary tract infection) Patient Disposition: Home, Self-Care Instructions: Urinary Tract Infection in Women (ED) Additional Instructions: You were found to have an infection in your urinary tract for which an antibiotic has been prescribed. You received the first dose in the emergency department tonight remainder of a prescription has been sent to your pharmacy to take twice daily for 5 days, you may pick this up tomorrow morning to begin taking it. You endorsed having issue with yeast infections in the past, as requested a prescription for Diflucan has been sent to your pharmacy if you are experiencing symptoms of yeast infection such as vaginal itching burning white clumpy discharge you may take a single Diflucan tablet, if after 3 days you still having symptoms you may take a second one. Please contact your primary care provider to arrange for a follow-up visit within the next week. You may return with any new or worsening symptoms or concerns. Prescriptions: New fluconazole 150 mg tablet 150 mg PO Q3D Qty: 2 0RF Rx Instructions: may repeat second dose 72 hrs after first dose if symptoms persist cefuroxime axetil 250 mg tablet 250 mg PO BID Qty: 9 0RF No Action fluconazole [Diflucan] 150 mg tablet 150 mg PO Q3D Qty: 2 0RF miconazole nitrate [Monistat 3] 4 % (200 mg)- 2 % (9 gram) comb pack,prefill appl, cream 1 appful vaginal BEDTIME 3 Days Qty: 24 0RF Rx Instructions: as vaginal cream diphenhydramine HCl [Benadryl] 25 mg capsule 25 mg PO TID PRN (Reason: itching) Qty: 20 0RF gabapentin 300 mg capsule 300 mg PO BEDTIME cholecalciferol (vitamin D3) 50 mcg (2,000 unit) tablet 50 mcg PO DAILY Farxiga 5 mg tablet 5 mg PO QAM amlodipine 5 mg tablet 7.5 mg PO DAILY pravastatin 40 mg tablet 40 mg PO BEDTIME omega 6-bde-ggo-fish oil 300 mg (120 mg- 180mg)-1,000 mg capsule 1 cap PO BID hydrocortisone 2.5 % cream with perineal applicator topical QID PRN miconazole nitrate 2 % cream topical BID diclofenac sodium 1 % gel 2 g topical BID PRN (Reason: pain) (DME) FreeStyle Lite Strips Strip See Rx Instructions .ROUTE TID Qty: 10 Rx Instructions: As directed senna 8.6 mg capsule 8.6 mg PO BEDTIME aspirin [Adult Aspirin Regimen] 81 mg tablet,delayed release (DR/EC) 81 mg PO DAILY omeprazole 20 mg capsule,delayed release(DR/EC) 20 mg PO BID 14 Days Qty: 28 0RF acetaminophen 650 mg tablet extended release 650 mg PO BID PRN (Reason: fever) alcohol swabs [Alcohol Prep Pads] Pads, Medicated 0 pad topical DAILY cetirizine 10 mg tablet 10 mg PO DAILY insulin glargine U-300 conc [Toujeo Max U-300 SoloStar] 300 unit/mL (3 mL) insulin pen 40 unit subcut DAILY baclofen 10 mg tablet 10 mg PO TID PRN ibuprofen [IBU] 600 mg tablet 600 mg PO Q8H PRN (Reason: pain) buspirone 15 mg tablet 15 mg PO BID clotrimazole 1 % cream topical nystatin [Nyamyc] 100,000 unit/gram powder topical BID Referrals: Angelique Grace DO [Primary Care Provider] - Interventions: ED Discharge Assessment Last Done: 04/22/24 19:46 Discharge Date/Time: 04/22/24 19:39 Print Language: Macedonian
[2024-04-22 17:16] LABS: Appearance Urine Turbid; Color Urine Yellow; Glucose Urine UA >=1000 mg/dL (Negative); Leukocyte Esterase Urine Moderate (2+) (Negative); Nitrite Urine Negative (Negative); Specific Gravity - Urine >= 1.030 (1.005-1.025); UMIC TRIGGER UACC YES; Urine Blood Moderate (2+) (Negative); Urine Ketones Negative (Negative); Urine Protein Trace mg/dL (Neg-Trace)
[2024-04-22 17:19] LABS: Bacteria Urine Trace (None Seen); Hyaline Casts Urine 0-2 /LPF (0-2); Squamous Epithelial Cell Urine 0-2 /HPF (0-2); UACC Culture Trigger YES; WBC Urine >50 /HPF (0-5)
[2024-04-22] MEDS: cefuroxime axetiL 250 MG TABLET PO (19:33)
[2024-04-22 19:46] VITALS: BP 120/93; PULSE 76; RESP 18; TEMP 36.9; O2SAT 98
== END 2024-04-22 19:39 | disposition home or self-care (01) ==
PROVIDERS: Nurse Practitioner Family; Emergency Provider Emergency Medicine; PCP Family Medicine
DX: N39.0 Urinary tract infection, site not specified (principal); R30.0 Dysuria; R10.2 Pelvic and perineal pain; E11.9 Type 2 diabetes mellitus without complications; Z79.899 Other long term (current) drug therapy; Z79.4 Long term (current) use of insulin
CPT/HCPCS: 81001; 87086; 87088; 87186; 99282; 99283

== ENCOUNTER 2024-04-24 13:31 | Outpatient (AMB) | payer MEDICAID, SELFPAY ==
[2024-04-24 13:37] VITALS: BP 120/78; PULSE 77; BMI 31.7
--- NOTE | 2024-04-24 13:37 | MHC.OFFVIS ---
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 Fill Plant Operator Name: armand Clark Allergies enalapril [ENALAPRIL] Allergy (Unknown, Verified 04/22/24 16:17) UNK hydrochlorothiazide [HYDROCHLOROTHIAZIDE] Allergy (Unknown, Verified 04/22/24 16:17) UNK lisinopril [LISINOPRIL] Allergy (Unknown, Verified 04/22/24 16:17) HIVES,THROAT SWELLING metoprolol [METOPROLOL] Allergy (Unknown, Verified 04/22/24 16:17) UNK metronidazole [METRONIDAZOLE] Allergy (Unknown, Verified 04/22/24 16:17) UNK Oxycodone HCl Allergy (Unknown, Uncoded 04/22/24 16:17) vomiting Medication List - Last Reconciled 04/24/24 by Murtaza Bruno MD acetaminophen ER 650 mg PO BID PRN alcohol swabs (Alcohol Prep Pads) 0 pad topical DAILY amlodipine 7.5 mg PO DAILY aspirin (Adult Aspirin Regimen) 81 mg PO DAILY baclofen 10 mg PO TID PRN blood sugar diagnostic (FreeStyle Lite Strips) As directed buspirone 15 mg PO BID cetirizine 10 mg PO DAILY cholecalciferol (vitamin D3) 50 mcg PO DAILY clotrimazole 1% appl topical dapagliflozin propanediol (Farxiga) 5 mg PO QAM diclofenac sodium 1% 2 grams topical BID PRN diphenhydramine HCl (Benadryl) 25 mg PO TID PRN gabapentin 300 mg PO BEDTIME hydrocortisone 2.5% topical QID PRN ibuprofen (IBU) 600 mg PO Q8H PRN insulin glargine U-300 conc (Toujeo Max U-300 SoloStar) 40 units subcut DAILY miconazole nitrate (Monistat 3) 1 appful vaginal BEDTIME 3 days miconazole nitrate 2% appl topical BID nystatin (Nyamyc) topical BID omega 7-isx-hou-fish oil 300 mg (120 mg- 180mg)-1,000 mg 1 cap PO BID omeprazole 20 mg PO BID 14 days pravastatin 40 mg PO BEDTIME semaglutide (Ozempic) mg subcut sennosides (senna) 8.6 mg PO BEDTIME HPI Comments Details: Maria C comes for follow-up after recent coronary CTA due to abnormal stress test. This again shows nonobstructive CAD with mild plaque in the LAD at 25% stenosis. She was no obstructive lesion. CTA also showed some esophageal thickening question esophagitis. Patient does see GI on a regular basis. Will refer back to the GI physician. She also says her pravastatin was switch to a different statin, she does not know the dose of the name. She denies any other cardiac symptoms at current time. History was obtained with help of bowling ball molder. [facility] Medical History Subclinical hyperthyroidism Pre-operative cardiovascular examination Chest discomfort Nausea CAD (coronary artery disease) Right hand pain Numbness and tingling in left hand Trigger finger, right Hyperlipidemia Diabetes GERD (gastroesophageal reflux disease) Depression Anxiety HTN (hypertension) Surgical History Hx of colonoscopy History of hand surgery Family History Maternal Aunt Dialysis patient Hypertension Diabetes Mother Hypertension Diabetes Father Diabetes Hypertension Social History Alcohol intake: never Patient Tobacco Use Status: Never used Tobacco Cigarettes Per Day: 2 Current occupational status: unemployed Current occupation: right handed Review of Systems Const Denies chills, Denies fatigue, Denies fever(s), Denies frequent falls, Denies weakness, Denies weight gain and Denies weight loss ENT Denies dizziness Card Denies chest pain, Denies leg edema, Denies lightheadedness, Denies palpitations, Denies dyspnea, Denies dyspnea on exertion, Denies orthopnea and Denies other (loss of consciousness) Resp Denies cough, Denies dyspnea and Denies dyspnea on exertion GI Denies hematochezia and Denies change in stool character Musc Denies abnormal gait, Denies muscle weakness, Denies numbness, Denies radiating pain into limb and Denies tingling Neuro Denies abnormal gait, Denies dizziness, Denies frequent falls, Denies numbness, Denies tingling and Denies weakness Endo Denies fatigue and Denies palpitations Physical Exam Vital Signs: Last Vital Signs Pulse 77 04/24/24 13:37 BP 120/78 04/24/24 13:37 BMI result Body Mass Index 31.7 Const General: cooperative, healthy appearing, comfortable and no acute distress Orientation/consciousness: patient oriented x3 Neck Neck: Yes normal visual inspection Resp Effort & Inspection: normal respiratory effort Auscultation: clear to auscultation bilaterally, no crackles, no rales, no rhonchi and no wheezes Cardio Jugular venous distension: no JVD Rate: regular rate Rhythm: regular rhythm Heart sounds: S1 normal heart sound present, S2 normal heart sound present, no murmurs and no rubs Neuro General: patient oriented x3 Extrem General: Yes normal to inspection, No no pedal edema and No calf tenderness Psych Appearance: grossly normal Mental Status: mental status grossly normal Speech and movement: Normal speech and movement present Assessment & Plan Assessment & Plan (1) Coronary arteriosclerosis: Code(s): I25.10 - Atherosclerotic heart disease of redding coronary artery without angina pectoris Category: Medical Plan: Nonobstructive coronary artery disease by recent coronary CTA which confirmed prior cardiac catheterization findings. He is not a cause of her chest pain. This was discussed with the help of bowling ball molder. Continued aggressive medical therapy. Can continue low-dose aspirin therapy as well as aggressive high blood pressure management goal blood pressure less than 130/84. Would agree with changing her statin to high-intensity statin therapy with atorvastatin at least 40 mg to target goal LDL less than 70 mg/dL which will be pursued through your office. Continue participate in regular physical activity. Continue aggressive diabetes management goal hemoglobin A1c less than 7%. Will discuss with GI about the findings on the CT scan. (2) Pre-operative cardiovascular examination: Code(s): Z01.810 - Encounter for preprocedural cardiovascular examination Category: Medical Plan: Preoperative cardiovascular risk stratification for noncardiac surgery. From cardiac perspective she is low risk for perioperative cardiovascular morbidity mortality and this was discussed with her. Continue all medications except for aspirin as per surgeon's discretion. Will follow up in the cardiology clinic if need be. Thank you for allowing me to partake in her care Coding Level of Care Code Est Pt Level 4 (45208) Complex EM visit Add On G2211 Diagnoses Coronary arteriosclerosis I25.10 Pre-operative cardiovascular examination Z01.810
== END 2024-04-24 14:24 | disposition home or self-care (01) ==
PROVIDERS: PCP Family Medicine; Visit Provider Internal Medicine Cardiovascular Disease
DX: I25.10 Atherosclerotic heart disease of native coronary artery without angina pectoris (principal); Z01.810 Encounter for preprocedural cardiovascular examination
CPT/HCPCS: 99214

== ENCOUNTER → 2024-04-24 13:31 | Outpatient (BNVA) | payer MEDICAID, SELFPAY | PROVIDERS: PCP Family Medicine; Visit Provider Internal Medicine Cardiovascular Disease | DX: Z01.810 Encounter for preprocedural cardiovascular examination (principal); I25.10 Atherosclerotic heart disease of native coronary artery without angina pectoris | CPT/HCPCS: 99212 ==

== ENCOUNTER 2024-05-08 09:58 | Outpatient (REF) | payer MEDICAID, SELFPAY ==
--- OUTSIDE RECORDS SUMMARY | 2024-05-08 11:31 | XMS_ITS | Encounter Summary ---
Author Organization [employer] Address [address] [place] [address] Care Team Providers Care Bounty Hunter Name Role Phone Angelique Grace DO Primary Care Provider [phone] Yu Busby PharmD Unavailable [phone] Reason for Visit * Reason Onset Date Comments Durable Medical Equipment 05/03/2024 Encounter Details Date Type Department Care Team (Late st Contact Info) Description 05/03/2024 Telephone [facility] [address] [place] [address] Angelique Grace DO [address] [place] [address] Durable Medical Equipment Social History Tobacco Use Types Packs/Day Years Used Date Smoking Tobacco: Former Cigarettes Passive Smoke Exposure: Past Smokeless Tobacco: Never Comments:Quit about 2 mo ago Alcohol Use Standard Drinks/Week Comments Never 0 (1 standard drink = 0.6 oz pur e alcohol) Depression Answer Date Recorded Patient Health Questionnaire-9 Score 0 06/08/2022 Housing Stability Answer Date Recorded What is your housing situation today? I have dioni almazan 11/04/[address] you li ve. Do you have problems with any of the following? None of the above 11/04/2023 Food Insecurity Answer Date Recorded Within the past 12 months, y ou worried that your food would run out before you got money to buy more: Never True 11/04/2023 Within the past 12 months,th e food you bought just didn't last and you didn't have enough money to get more: Never True Transportation Answer Date Recorded In the past 12 months, has l ack of transportation kept you from medical appts, meetings, work or from getting things needed for daily living? No 11/04/2023 Utilities Answer Date Recorded In the past 12 months, has t he electric, gas, oil or water company threatened to shut off services in your home? No 11/04/2023 Depression Answer Date Recorded Patient Health Questionnaire-2 Score 0 06/08/2022 Internet Access Answer Date Recorded Internet Access Q1 Yes 11/11/2023 Internet Access Q2 Not on file 11/11/2023 Comments Unknown Sex and Gender Information Value Date Recorded Sex Assigned at Female 01/11/2022 10:15 AM EDT Legal Sex Female 10:15 AM EDT Gender Identity Female 01/11/2022 10:15 AM EDT Sexual Orientation Straight 01/11/2022 10 :15 AM EDT documented as of this encounter Miscellaneous Notes * Telephone Encounter - Sade Morales - 05/03/2024 11:16 AM EST Tc from pt requesting patches for medical equipment unknown pt doesn't specify name she indicates is for nerve stimulation to treat pain. Pt describe medical equipment : It says in the front BioMed 2000 XL Its a nerve stimulator for nerve stimulation and muscle documented in this encounter Plan of Treatment Upcoming Encounters Date Type Department Care Team (Late st Contact Info) Description 05/18/2024 10:30 AM EST Office Visit [facility] [address] [place] [id number] Tommy Chance MD [address] [place] [phone] 05/29/2024 2:00 PM EDT Medication Management [facility] [address] [place] [phone] Yu Busby PharmD [address] [place] [phone] documented as of this encounter Goals Goal Patient Goal Type Associated Problems Recent Progress Patient-Stated? Author Smoking cessation General No Yu Busby PharmD Hemoglobin A1c < 7 Result Component 7.3( 5 2:54 PM EST) No Castillo Pradhan PharmD Record your blood sugar as directed Result Component No Yu Busby PharmD documented as of this encounter Visit Diagnoses Not on filedocumented in this encounter Additional Health Concerns Assessment Noted Time PHQ-9 Depression Total Score: 0 06/09/19 23 11:27 AM EDT documented as of this encounter Care Teams Bounty Hunter Relationship Specialty Start Date End Date Angelique Grace DO [address] [place] [address] PCP - General Family Medicine 03/14/18 Yu Busby PharmD [address] [place] [address] Pharmacist Internal Medicine 11/03/22 documented as of this encounter
--- OUTSIDE RECORDS SUMMARY | 2024-05-08 11:31 | XMS_ITS | Encounter Summary ---
Author Organization [employer] Address [address] [facility] [address] [place] [address] Care Team Providers Care Rn Ambulatory Name Role Phone Angelique Grace DO Primary Care Provider [phone] Yu Busby PharmD Unavailable [phone] Reason for Visit * Reason Comments Med Refill Encounter Details Date Type Department Care Team (Late st Contact Info) Description 11/03/2023 Refill [facility] [address] [place] [address] Angelique Grace DO [address] [place] [address] Social History Tobacco Use Types Packs/Day Years Used Date Smoking Tobacco: Some Days Cigarettes Passive Smoke Exposure: Current Smokeless Tobacco: Never Alcohol Use Standard Drinks/Week Comments Never 0 [...] Recorded Patient Health Questionnaire-2 Score 0 06/08/2022 Comments Unknown Sex and Gender Information Value Date Recorded Sex Assigned at Female 01/11/2022 10:15 AM EDT Legal Sex Female 10:15 AM EDT Gender Identity Female 01/11/2022 10:15 AM EDT Sexual Orientation Straight 01/11/2022 10 :15 AM EDT documented as of this encounter Plan of Treatment Upcoming Encounters Date Type Department Care Team (Late st Contact Info) Description 05/18/2024 10:30 AM EST Office Visit [facility] [address] [place] [phone] Tommy Chance MD [address] [place] [phone] 05/29/2024 2:00 PM EDT Medication Management [facility] [address] [place] [phone] Puia, Yu, PharmD [address] [place] [phone] documented as of this encounter Goals Goal Patient Goal Type Associated Problems Recent Progress Patient-Stated? Author Smoking cessation General No Puia, Yu, PharmD Hemoglobin A1c < 7 Result Component 7.3( 2:54 PM EST) No DellogCastillo toledo, PharmD Record your blood sugar as directed Result Component No Puia, Yu, PharmD documented as of this encounter Visit Diagnoses Not on filedocumented in this encounter Additional Health Concerns Assessment Noted Time PHQ-9 Depression Total Score: 0 06/09/19 23 11:27 AM EDT documented as of this encounter Care Teams Rn Ambulatory Relationship Specialty Start Date End Date Angelique Grace DO [address] [place] [phone] PCP - General Family Medicine 03/14/18 Yu Busby, PharmD [address] [place] [phone] Pharmacist Internal Medicine 11/03/22 documented as of this encounter
--- OUTSIDE RECORDS SUMMARY | 2024-05-08 11:31 | XMS_ITS | Encounter Summary ---
Author Organization [employer] Address 75 [facility] 7t [place] [address] Care Team Providers Care Computerized Mill Recorder Name Role Phone SanjayAngelique Primary Care Provider [phone] Yu Busby PharmD Unavailable [phone] Reason for Visit * Reason Comments Med Refill Encounter Details Date Type Department Care Team (Late st Contact Info) Description 02/14/2023 Refill [facility] [address] [place] [address] Yulisa Cedillo MD [address] [place] [address] Primary hypertension Social History Tobacco Use Types Packs/Day Years Used Date Smoking Tobacco: Some Days Cigarettes Passive Smoke Exposure: Current Smokeless Tobacco: Never Alcohol Use Standard Drinks/Week Comments Never 0 (1 standard drink = 0.6 oz pur e alcohol) Depression Answer Date Recorded Patient Health Questionnaire-9 Score 0 06/08/2022 Housing Stability Answer Date Recorded What is your housing situation today? I have dioni almazan 12/30/[address] you li ve. Do you have problems with any of the following? None of the above 12/30/2022 Food Insecurity Answer Date Recorded Within the past 12 months, y ou worried that your food would run out before you got money to buy more: Never True 12/30/2022 Within the past 12 months,th e food you bought just didn't last and you didn't have enough money to get more: Never True Transportation Answer Date Recorded In the past 12 months, has l ack of transportation kept you from medical appts, meetings, work or from getting things needed for daily living? No 12/30/2022 Utilities Answer Date Recorded In the past 12 months, has t he electric, gas, oil or water company threatened to shut off services in your home? No 12/30/2022 Depression Answer Date Recorded Patient Health Questionnaire-2 [...] Description 05/18/2024 10:30 AM EST Office Visit [facility] [address] [place] [address] Tommy Chance MD [address] [place] [address] 05/29/2024 2:00 PM EDT Medication Management [facility] [address] [place] [address] PuiaDarrynYu, PharmD [address] [place] [address] documented as of this encounter Goals Goal Patient Goal Type Associated Problems Recent Progress Patient-Stated? Author Smoking cessation General No Puia, Yu, PharmD Hemoglobin A1c < 7 Result Component 7.3( 2:54 PM EST) No DelCastillo clements, PharmD Record your blood sugar as directed Result Component No Puia, Yu, PharmD documented as of this encounter Visit Diagnoses Diagnosis Primary hypertension Unspecified essential hypertension documented in this encounter Additional Health Concerns Assessment Noted Time PHQ-9 Depression Total Score: 0 06/09/19 23 11:27 AM EDT documented as of this encounter Care Teams Computerized Mill Recorder Relationship Specialty Start Date End Date Angelique Grace DO [address] [place] [address] PCP - General Family Medicine 03/14/18 Yu Busby, PharmD [address] [place] [address] Pharmacist Internal Medicine 11/03/22 documented as of this encounter
--- OUTSIDE RECORDS SUMMARY | 2024-05-08 11:31 | XMS_ITS | Encounter Summary ---
Author Organization [employer] Address 75 [facility] 7t [place] [address] Care Team Providers Care Sole Painter Name Role Phone Angelique Grace DO Primary Care Provider [phone]- [phone] Yu Busby PharmD Unavailable [phone] Reason for Visit * Reason Comments Med Refill Encounter Details Date Type Department Care Team (Late st Contact Info) Description 04/08/2024 Refill [facility] 230 [place] [address] Angelique Grace DO [address] [place] [address] Type 2 diabetes mellitus without complication, with long-term current use of insulin ([facility]); Vitamin D deficiency Social History Tobacco Use Types Packs/Day Years [...] your housing situation today? I have dioni sing 11/04/[address] you li [...] Description 05/18/2024 10:30 AM EST Office Visit [facility] [address] [place] [address] Tommy Chance MD [address] [place] [address] 05/29/2024 2:00 PM EDT Medication Management [facility] [address] [place] [address] Yu Busby PharmD [address] [place] [address] documented as of this encounter Goals Goal Patient Goal Type Associated Problems Recent Progress Patient-Stated? Author Smoking cessation General No Yu Busby PharmD Hemoglobin A1c < 7 Result Component 7.3( 2:54 PM EST) No Castillo Pradhan PharmD Record your blood sugar as directed Result Component No Yu Busby PharmD documented as of this encounter Visit Diagnoses Diagnosis Type 2 diabetes mellitus without complication, with long-term current use of insulin ([facility]) Vitamin D deficiency documented in this encounter Additional Health Concerns Assessment Noted Time PHQ-9 Depression Total Score: 0 06/09/19 11:27 AM EDT documented as of this encounter Care Teams Sole Painter Relationship Specialty Start Date End Date Angelique Grace DO [address] [place] [address] PCP - General Family Medicine 03/14/18 Yu Busby PharmD [address] [place] [address] Pharmacist Internal Medicine 11/03/22 documented as of this encounter
--- OUTSIDE RECORDS SUMMARY | 2024-05-08 11:31 | XMS_ITS | Encounter Summary ---
Author Organization [employer] Address 75 [facility] 7t [place] [address] Care Team Providers Care Awning Finisher Name Role Phone Angelique Grace DO Primary Care Provider [phone] Yu Busby PharmD Unavailable [phone] Reason for Visit * Reason Onset Date Comments Medication Question 04/26/2024 Encounter Details Date Type Department Care Team (Late st Contact Info) Description 04/26/2024 Refill [facility] [address] [place] [address] Angelique Grace DO [address] [place] [address] Social History Tobacco Use Types Packs/Day Years [...] encounter Miscellaneous Notes * Telephone Encounter - Kerri Burt - 04/26/2024 4:16 PM EST Tc from pt requesting lidocaine patch. Reprographics Associate advise pt not on med list. Pt stated PCP prescribed them in the past due to her history of back pain. Contact pt at [phone] (nicaraguan) documented in this encounter Plan of Treatment Upcoming Encounters Date Type Department Care Team (Late st Contact Info) Description 05/18/2024 10:30 AM EST Office Visit [facility] [address] [place] [address] Tommy Chance MD [address] [place] [address] 05/29/2024 2:00 PM EDT Medication Management [facility] [address] [place] [phone] Yu Busby PharmD [address] [place] [address] documented as of this encounter Goals Goal [...] documented as of this encounter Care Teams Awning Finisher Relationship Specialty Start Date End Date Angelique Grace DO [address] [place] [address] PCP - General Family Medicine 03/14/18 Yu Busby PharmD [address] [place] [address] Pharmacist Internal Medicine 11/03/22 documented as of this encounter
--- OUTSIDE RECORDS SUMMARY | 2024-05-08 11:31 | XMS_ITS | Encounter Summary ---
Author Organization [facility] Address 75 [facility] 7t [place] [address] Care Team Providers Care Real Estate Executive Assistant Name Role Phone SanjayAngelique Primary Care Provider + [phone] Yu Busby PharmD Unavailable [phone] Encounter Details Date Type Department Care Team (Late st Contact Info) Description 04/22/2024 Orders Only GENERIC EXTERNAL DATA DEPARTMENT Provider, Generic External Data Social History Tobacco Use Types Packs/Day Years [...] Description 05/18/2024 10:30 AM EST Office Visit [facility] [address] [place] [phone] Tommy Chance MD [address] [place] [address] 05/29/2024 2:00 PM EDT Medication Management [facility] [address] [place] [address] Yu Busby, PharmD [address] [place] [address] documented as of this encounter Goals Goal Patient Goal Type Associated Problems Recent Progress Patient-Stated? Author Smoking cessation General No Yu Busby PharmD Hemoglobin A1c < 7 Result Component 7.3( 2:54 PM EST) No Castillo Pradhan PharmYusef Record your blood sugar as directed Result Component No Yu Busby PharmD documented as of this encounter Procedures Procedure Name Priority Date/Time Associated Diagnosis Comments URINALYSIS, COMPLETE, WITH REFLEX TO CULTURE Routine 04/22/2024 4:58 PM EST documented in this encounter Results * (ABNORMAL) Urinalysis, Complete, with Reflex to Culture (04/22/2024 4:58 PM EST) Color Urine Yellow [facility] Appearance Urine Turbid [facility] PH 6.0 5.0 - 9.0 [facility] Glucose Urine UA >=1000(A) Negative mg/dL [facility] Urine Blood Moderate (2+)(A) Negative [facility] Specific Eighty Eight - Urine >=1.030(H) 1.005 - 1.025 [facility] Urine Protein Trace Neg-Trace mg/dL [facility] Urine Ketones Negative Negative mg/dL [facility] Nitrite Urine Negative Negative [facility] Leukocyte Esterase Urine Moderate (2+)(A) Negative [facility] RBC Urine 11-20(A) 0 - 2 /HPF [facility] Urine WBC >50(A) 0 - 5 /HPF [facility] Urine Squamous Epithelial Cell 0-2 0 - 2 /HPF [facility] Urine Bacteria Trace None Seen [facility] Hyaline Casts, Urine 0-2 0 - 2 /LPF [facility] 04/22/2024 4:58 PM EST 04/22/2024 5:06 PM EST Narrative [facility] - 04/22/2024 5:20 PM EST Urine, Clean Catch us Generic External Data Provider LAB URINE ORDERAB LES Final Result Performing Organization Address City/State/[facility] Co de Phone Number [facility] [address] [place] [phone] documented in this encounter Visit Diagnoses Not on filedocumented in this encounter Additional Health Concerns Assessment Noted Time PHQ-9 Depression Total Score: 0 06/09/19 23 11:27 AM EDT documented as of this encounter Care Teams Real Estate Executive Assistant Relationship Specialty Start Date End Date Angelique Grace DO [address] [place] [address] PCP - General Family Medicine 03/14/18 Yu Busby PharmD [address] [place] [address] Pharmacist Internal Medicine 11/03/22 documented as of this encounter
--- OUTSIDE RECORDS SUMMARY | 2024-05-08 11:31 | XMS_ITS | Encounter Summary ---
Author Organization [employer] [facility] Address [address] [facility] 7t [place] [address] Care Team Providers Care Electrician Powerhouse Name Role Phone Angelique Grace DO Primary Care Provider [phone]- [phone] Yu Busby PharmD Unavailable [phone] Reason for Referral * Consultation (Routine) - Authorized Specialty Diagnoses / Procedures Referred By Contsally t Referred To Contact Pharmacy Diagnoses Type 2 diabetes mellitus without complication, with long-term current use of insulin (CMS/HCC) Angelique Grace DO [address] [place] [address] Phone: tel: fax: Referral ID Status Reason Start Date Expiration Date Visits Requested Visits Authorized [id number] Authorized Consult and Treat 04/22/2024 04/22/2025 6 6 Encounter Details Date Type Department Care Team (Late st Contact Info) Description 04/22/2024 Orders Only [facility] [address] [place] [address] Angelique Grace DO [address] [place] [address] Type 2 diabetes mellitus without complication, with long-term current use of insulin (CMS/HCC) (Primary Dx) Social History Tobacco Use Types Packs/Day Years [...] AM EDT documented as of this encounter Progress Notes * Angelique Grace DO - 04/22/2024 9:29 PM EST CDTM referral placed. documented in this encounter Plan of Treatment Upcoming Encounters Date Type Department Care Team (Late st Contact Info) Description 05/18/2024 10:30 AM EST Office Visit [facility] [address] [place] [address] Tommy Chance MD [address] [place] [address] 05/29/2024 2:00 PM EDT Medication Management [facility] [address] [place] [address] Yu Busby PharmD [address] [place] [address] Scheduled Referrals Name Type Priority Associated Diagnoses Orde r Schedule Referral to Pharmacy CDTM Outpatient Referral Routine Type 2 diabetes mellitus without complication, with long-term current use of insulin ([facility]) Ordered: 04/22/2024 documented as of this encounter Goals Goal Patient Goal Type Associated Problems Recent Progress Patient-Stated? Author Smoking cessation General No Yu Busby PharmD Hemoglobin A1c < 7 Result Component 7.3( 2:54 PM EST) No Castillo Pradhan PharmD Record your blood sugar as directed Result Component No Yu Busby PharmD documented as of this encounter Procedures Procedure Name Priority Date/Time Associated Diagnosis Comments CULTURE, URINE, ROUTINE Routine 04/22/2024 12:00 AM EST Type 2 diabetes mellitus without complication, with long-term current use of insulin ([facility]) documented in this encounter Results * Culture, Urine, Routine (04/22/2024 12:00 AM EST) Urine Urine specimen obtained by clean catch procedure / Unknown 04/22/2024 04/22/2024 Comment:[facility] - 04/24/2024 7:22 AM EST Escherichia coli Quant 10,000 to 50,000 cfu/mL Escherichia coli: Ampicillin <=2(S) Escherichia coli: Cefazolin (Urine) <=1(S) Escherichia coli: Cefepime <=0.12(S) Escherichia coli: Ceftriaxone <=0.25(S) Escherichia coli: Ciprofloxacin <=0.06(S) Escherichia coli: Gentamicin <=1(S) Escherichia coli: Nitrofurantoin <=16(S) Escherichia coli: Trimethoprim/Sulfamethoxazole <=20(S) Specimen Source: Urine clean catch us Generic External Data Provider LAB MICROBIOLOGY - GENERAL ORDERABLES Final Result [facility] [address] [place] [address] [phone] documented in this encounter Visit Diagnoses Diagnosis Type 2 diabetes mellitus without complication, with long-term current use of insulin ([facility])- Primary documented in this encounter Additional Health Concerns Assessment Noted Time PHQ-9 Depression Total Score: 0 06/09/19 23 11:27 AM EDT documented as of this encounter Care Teams Electrician Powerhouse Relationship Specialty Start Date End Date Angelique Grace DO [address] [place] [phone] PCP - General Family Medicine 03/14/18 Yu Busby PharmD [address] [place] [phone] Pharmacist Internal Medicine 11/03/22 documented as of this encounter
--- OUTSIDE RECORDS SUMMARY | 2024-05-08 11:31 | XMS_ITS | Encounter Summary ---
Author Organization [employer] Address 75 [facility] 7t [place] [address] Care Team Providers Care Psychology Lecturer Name Role Phone Angelique Grace DO Primary Care Provider [phone]- [phone] Yu Busby PharmD Unavailable [phone] Reason for Visit * Reason Comments Care Coordination Outreach Encounter Details Date Type Department Care Team (Latest Contact Info) Description 05/02/2024 Patient Outreach [facility] [address] [place], [place] [phone] Angelique Grace DO [address] [facility] [place] [address] Care Coordination (Outreach) Social History Tobacco Use Types Packs/Day Years [...] as of this encounter Progress Notes * oDlores Hood - 05/02/2024 10:20 AM EST CHW Dolores Hood, placed outbound call to patient introducing herself from [facility], in regards to offering services. Patient's name and was confirmed. Patient agrees to participate in program. Appt. for initial assessment scheduled for 05/09/24 @ 1:00 PM. CHW reinforced direct contact information or CM for any additional questions or concerns and extended clinic hours on Mondays and Wednesdays, and Walk-In Urgent Care Located in [facility]. Patient provided with after-hours line for [facility], , which offer night time triageservice and option to transfer to rn lactation consultant provider if needed. Patient verbalizes understanding, and able to repeat back to process description writer. documented in this encounter Plan of Treatment Upcoming Encounters Date Type Department Care Team ([facility] st Contact Info) Description 05/18/2024 10:30 AM EST Office Visit [facility] [address] [place] [address] Tommy Chance MD [address] [place], [place] [phone] 05/29/2024 2:00 PM EDT Medication Management [facility] [address] [place] [address] Yu Busby PharmD [address] [place] [address] documented as of this encounter Goals Goal [...] documented as of this encounter Care Teams Psychology Lecturer Relationship Specialty Start Date End Date Angelique Grace DO [address] [place] [address] PCP - General Family Medicine 03/14/18 Yu Busby PharmD [address] [place] [address] Pharmacist Internal Medicine 11/03/22 documented as of this encounter
--- OUTSIDE RECORDS SUMMARY | 2024-05-08 11:31 | XMS_ITS | Encounter Summary ---
Author Organization [employer] Address 75 [facility] 7t [place] [address] Care Team Providers Care Oracle E Business Developer Name Role Phone Angelique Grace DO Primary Care Provider [phone]- [phone] Yu Busby PharmD Unavailable [phone] Reason for Visit * Reason Onset Date Comments Nurse Triage 01/12/2024 Encounter Details Date Type Department Care Team (Late st Contact Info) Description 01/12/2024 Telephone [facility] [address] [place] [address] Angelique Grace DO [address] [place] [address] Nurse Triage Social History Tobacco Use Types Packs/Day Years [...] encounter Miscellaneous Notes * Telephone Encounter - Shantelle Park RN - 01/12/2024 11:28 AM EDT Called pt. Via [employer]. Pt. States that she is having numbness in both hands when she sleeps at night and when she uses her tablet. Pt. States she called to make an appt. With her [facility] [address] [place] [address] -Fax number [phone] or [phone] DX. [facility] but, they told her that her referral needs to be renewed. Pt. Is requesting a call back when referral is done so that she can make an appt. Protocol Used: Hand Pain (Adult) Protocol-Based Disposition: See in Office or Video Visit Today or Tomorrow Video visit offer not recorded Positive Triage Questions: * Numbness (i.e., loss of sensation) in hand or fingers * Pain is worsened by using computer keyboard or mouse * All higher-acuity triage questions were negative * Telephone Encounter - Snow Pickard - 01/12/2024 10:59 AM EDT Symptom: Hand Numbness Outcome: Schedule an urgent appointment (within 1 hour) or talk to a nurse or provider soon Reason: Getting worse The caller accepted this outcome. documented in this encounter Plan of Treatment Upcoming Encounters Date Type Department Care Team (Late st Contact Info) Description 05/18/2024 10:30 AM EST Office Visit [facility] [address] [place] [address] Tommy Chance MD [address] [place], [place] [phone] 05/29/2024 2:00 PM EDT Medication Management [facility] [address] [place] [address] Yu Busby, PharmD [address] [place] [address] [phone] documented as of this encounter Goals Goal Patient Goal Type Associated Problems Recent Progress Patient-Stated? Author Smoking cessation General No Yu Busby, PharmD Hemoglobin A1c < 7 Result Component 7.3( 2:54 PM EST) No DellogCastillo toledo, PharmD Record your blood sugar as directed Result Component No JamesiaYu, PharmD documented as of this encounter Visit Diagnoses Not on filedocumented in this encounter Additional Health Concerns Assessment Noted Time PHQ-9 Depression Total Score: 0 06/09/19 23 11:27 AM EDT documented as of this encounter Care Teams Oracle E Business Developer Relationship Specialty Start Date End Date Angelique Grace DO [address] [place] [address] [phone] PCP - General Family Medicine 03/14/18 PuiaDarrynYu, PharmD [address] [place] [address] [phone] Pharmacist Internal Medicine 11/03/22 documented as of this encounter
--- OUTSIDE RECORDS SUMMARY | 2024-05-08 11:31 | XMS_ITS | Encounter Summary ---
Author Organization [employer] Address [address] [facility] 7t [place] [address] Care Team Providers Care Foreign Exchange Clerk Name Role Phone Angelique Grace DO Primary Care Provider +1- [phone] Yu Busby PharmD Unavailable [phone] Reason for Visit * Reason Onset Date Comments Medication Question 02/16/2024 Encounter Details Date Type Department Care Team ([facility] st Contact Info) Description 02/16/2024 Telephone [facility] MEDICINE [address] [place] [address] Angelique Grace DO [address] [place] [address] Medication Question Social History Tobacco Use Types Packs/Day Years [...] encounter Miscellaneous Notes * Telephone Encounter - Rj Diane MA - 02/29/2024 9:50 AM EST T/c to pt is R/c for may 2024 new derm appt we be mail. * Telephone Encounter - Alyssa Bryant RN - 02/16/2024 2:18 PM EST RN spoke to PCP informed PCP will send the Meloxicam, and informed pt of her MRI results consist ofa bulging disc, no compression or narrowing, offered a referral back to [facility], Pt agrees, please refer to [facility]. Thank you TC from pt requesting to be prescribed Meloxicam 15 mg for her chronic back pain . Pt states had gotten this prescribed to her about [address] Ward (back specialist) who she know longer sees. Pt specifies that takes acetaminophen (Tylenol 8 Hour) 650 MG ER tablet that no longer works for her. * Telephone Encounter - Eyal Ryder - 02/16/2024 2:02 PM EST TC from pt requesting to be prescribed Meloxicam 15 mg for her chronic back pain . Pt states had gotten this prescribed to her about [address] Ward (back specialist) who she know longer sees. Pt specifies that takes acetaminophen (Tylenol 8 Hour) 650 MG ER tablet that no longer works for her. documented in this encounter Plan of Treatment Upcoming Encounters Date Type Department Care Team (Late st Contact Info) Description 05/18/2024 10:30 AM EST Office Visit [facility] MEDICINE [address] [place] [address] Tommy Chance MD [address] [place] [address] 05/29/2024 2:00 PM EDT Medication Management [facility] MEDICINE [address] [place] [phone] Yu Busby, PharmD [address] [place] [address] documented as of this encounter Goals Goal Patient Goal Type Associated Problems Recent Progress Patient-Stated? Author Smoking cessation General No Yu Busby, PharmD Hemoglobin A1c < 7 Result Component 7.3( 2:54 PM EST) No Castillo Pradhan PharmD Record your blood sugar as directed Result Component No Yu Busby PharmD documented as of this encounter Visit Diagnoses Diagnosis Chronic right-sided low back pain without sciatica- Primary documented in this encounter Additional Health Concerns Assessment Noted Time PHQ-9 Depression Total Score: 0 06/09/19 23 11:27 AM EDT documented as of this encounter Care Teams Foreign Exchange Clerk Relationship Specialty Start Date End Date Angelique Grace DO [address] [place] [address] [phone] PCP - General Family Medicine 03/14/18 Yu Busby, PharmD [address] [place] [address] [phone] Pharmacist Internal Medicine 11/03/22 documented as of this encounter
--- OUTSIDE RECORDS SUMMARY | 2024-05-08 11:31 | XMS_ITS | Encounter Summary ---
Author Organization [employer] Address [address] [facility] 7t [place] [address] Care Team Providers Care Manager Fraud Name Role Phone Angelique Grace DO Primary Care Provider [phone]- [phone] Yu Busby PharmD Unavailable [phone] Reason for Visit * Reason Onset Date Comments Med Refill 01/07/2023 Encounter Details Date Type Department Care Team (Late st Contact Info) Description 01/07/2023 Telephone [facility] MEDICINE [address] [place] [address] Angelique Grace DO [address] [place] [address] Med Refill Social History Tobacco Use Types Packs/Day Years [...] encounter Miscellaneous Notes * Telephone Encounter - Angelique Soler LPN - 01/07/2023 3:12 PM EDT Farxiga was sent on 01/06/23 and Lyrica was sent on 10/04/22 with 3 refills. * Telephone Encounter - Grace Fair - 01/07/2023 3:07 PM EDT Tc from pt requesting medication refill on dapagliflozin (Farxiga) 5 MG and pregabalin (Lyrica) 100MG capsule to be sent to [email or web address] [address] documented in this encounter Plan of Treatment Upcoming Encounters Date Type Department Care Team (Late st Contact Info) Description 05/18/2024 10:30 AM EST Office Visit [facility] MEDICINE [address] [place] [phone] Tommy Chance MD [address] [place] [address] 05/29/2024 2:00 PM EDT Medication Management [facility] MEDICINE [address] [place] [address] [phone] Yu Busby, PharmD [address] [place] [address] documented as of this encounter Goals Goal [...] documented as of this encounter Care Teams Manager Fraud Relationship Specialty Start Date End Date Angelique Grace DO [address] [place] [address] PCP - General Family Medicine 03/14/18 Yu Busby PharmD [address] [place] [address] Pharmacist Internal Medicine 11/03/22 documented as of this encounter
--- OUTSIDE RECORDS SUMMARY | 2024-05-08 11:31 | XMS_ITS | Encounter Summary ---
Author Organization [employer] Address [address] [facility] 7t [place] [address] Care Team Providers Care Paper Mill Supervisor Name Role Phone Angelique Grace DO Primary Care Provider [phone]- [phone] Yu Busby PharmD Unavailable [phone] Reason for Visit * Reason Onset Date Comments Nurse Triage 01/10/2023 Encounter Details Date Type Department Care Team ([facility] st Contact Info) Description 01/10/2023 Telephone [facility] MEDICINE [address] [place] [address] Angelique Grace DO 230 [place] [address] Nurse Triage Social History Tobacco Use Types [...] encounter Miscellaneous Notes * Telephone Encounter - Shiloh Alexis RN - 01/10/2023 4:01 PM EDT Triage call with [employer] Soda Clerk [place] [id number] Pt reports burning with urination which started yesterday. Urine has a foul odor, low back pain andbil leg pain. Pt is advised to come to [facility] to be seen and Pt agrees with disposition. Advised to increase liquids and Pt agrees. Protocol Used: Urinary Symptoms (Adult) Protocol-Based Disposition: See in Office or Video Visit Today Video visit not offered Positive Triage Questions: * Side (flank) or lower back pain present * Bad or foul-smelling urine * All higher-acuity triage questions were negative Care Advice Discussed: * Reasons To Call Back - Fever occurs - Pain or burning with urination - Unable to urinate and bladder feels full - You become worse * Telephone Encounter - Grace Fair - 01/10/2023 3:14 PM EDT Symptom: Urination Pain Outcome: Schedule an urgent appointment (within 1 hour) or talk to a nurse or provider soon Reason: Severe pain now The caller accepted this outcome Please contact pt at [phone] (Cypriot) documented in this encounter Plan of Treatment Upcoming Encounters Date Type Department Care Team (Late st Contact Info) Description 05/18/2024 10:30 AM EST Office Visit [facility] MEDICINE [address] [place] [address] Tommy Chance MD [address] [place] [address] 05/29/2024 2:00 PM EDT Medication Management [facility] MEDICINE [address] [place] [phone] Yu Busby PharmD [address] [place] [address] documented as of this encounter Goals Goal Patient Goal Type Associated Problems Recent Progress Patient-Stated? Author Smoking cessation General No Yu Busby PharmD Hemoglobin A1c < 7 Result Component 7.3( 2:54 PM EST) No Castillo Pradhan PharmD Record your blood sugar as directed Result Component No Yu Busby PharmYusef documented as of this encounter Visit Diagnoses Not on filedocumented in this encounter Additional Health Concerns Assessment Noted Time PHQ-9 Depression Total Score: 0 06/09/19 11:27 AM EDT documented as of this encounter Care Teams Paper Mill Supervisor Relationship Specialty Start Date End Date Angelique Grace DO [address] [place] [address] [phone] PCP - General Family Medicine 03/14/18 Yu Busby PharmD [address] [place] [address] [phone] Pharmacist Internal Medicine 11/03/22 documented as of this encounter
--- OUTSIDE RECORDS SUMMARY | 2024-05-08 11:31 | XMS_ITS | Encounter Summary ---
Author Organization [employer] Address [address] [facility] 7t [place] [address] Care Team Providers Care General Worker Name Role Phone Angelique Grace DO Primary Care Provider [phone]- [phone] Yu Busby PharmD Unavailable [phone] Reason for Visit * Reason Onset Date Comments Med Refill 03/01/2024 Encounter Details Date Type Department Care Team (Late st Contact Info) Description 03/01/2024 Telephone [facility] MEDICINE [address] [place] [address] Angelique Grace DO [address] [place] [address] Med Refill Social History Tobacco Use Types [...] Telephone Encounter - Angelique Soler LPN - 03/01/2024 1:44 PM EST Medications have refills. * Telephone Encounter - Jose M Hernandez - 03/01/2024 1:22 PM EST TC from pt requesting medication refill. Medications needing refill : E-400 180 MG (400 UNIT) capsule Procto-Med HC 2.5 % rectal cream Diclofenac Sodium 1 % gel To be sent to: [facility] [address] documented in this encounter Plan of Treatment Upcoming Encounters Date Type Department Care Team (Late st Contact Info) Description 05/18/2024 10:30 AM EST Office Visit [facility] MEDICINE [address] [place] [address] Tommy Chance MD [address] [place] [address] 05/29/2024 2:00 PM EDT Medication Management [facility] MED[facility]INE [address] [place] [address] [phone] Yu Busby PharmD [address] [place] [address] documented as of this encounter Goals Goal [...] documented as of this encounter Care Teams General Worker Relationship Specialty Start Date End Date Angelique Grace DO [address] [place] [address] PCP - General Family Medicine 03/14/18 Yu Busby PharmD [address] [place] [address] Pharmacist Internal Medicine 11/03/22 documented as of this encounter
--- OUTSIDE RECORDS SUMMARY | 2024-05-08 11:31 | XMS_ITS | Encounter Summary ---
Author Organization [employer] Address [address] [facility] 7t [place] [address] Care Team Providers Care Utilization Review Coordinator Name Role Phone Angelique Grace DO Primary Care Provider [phone]- [phone] Yu Busby PharmD Unavailable [phone] Reason for Visit * Reason Comments Care Coordination Outreach Encounter Details Date Type Department Care Team (Latest Contact Info) Description 04/24/2024 Patient Outreach [facility] [address] [place], [place] [phone] Angelique Grace DO [address] [place] [address] Care Coordination (Outreach) Social History Tobacco Use [...] as of this encounter Progress Notes * Dolores Hood - 04/24/2024 12:52 PM EST CHW Dolores Hood , placed outbound call to patient in regards to offer services. CHW introducing herself from [facility] CM Department with CHW's name, department and direct contact [phone] requesting call back. Will re-attempt to contact within 5 days. and address not confirmed. documented in this encounter Plan of Treatment Upcoming Encounters Date Type Department Care Team ([facility] st Contact Info) Description 05/18/2024 10:30 AM EST Office Visit [facility] MEDICINE [address] [place] [phone] Tommy Chance MD [address] [place] [address] 05/29/2024 2:00 PM EDT Medication Management [facility] [address] [place] [phone] Yu Busby PharmD [address] [place] [address] documented as of this encounter Goals Goal [...] documented as of this encounter Care Teams Utilization Review Coordinator Relationship Specialty Start Date End Date Angelique Grace DO 230 [place] [address] PCP - General Family Medicine 03/14/18 Yu Busby PharmD [address] [place] [address] Pharmacist Internal Medicine 11/03/22 documented as of this encounter
--- OUTSIDE RECORDS SUMMARY | 2024-05-08 11:31 | XMS_ITS | Encounter Summary ---
Author Organization [employer] Address [address] [facility] 7t [place] [address] Care Team Providers Care Plisse Machine Operator Helper Name Role Phone Angelique Grace DO Primary Care Provider [phone]- [phone] Yu Busby PharmD Unavailable [phone] Reason for Visit * Reason Onset Date Comments callback requested 01/27/2024 Encounter Details Date Type Department Care Team ([facility] st Contact Info) Description 01/27/2024 Telephone [facility] MEDICINE [address] [place] [address] Angelique Grace DO [address] [place] [address] callback requested Social History Tobacco Use Types Packs/Day Years [...] * Telephone Encounter - Sade Morales - 01/27/2024 10:13 AM EST Tc from pt requesting a callback pt states that the [facility] called her in regards her referral and they told her that PCP had to call insurance because if not she has to payout of pocket , Callback [phone] documented in this encounter Plan of Treatment Upcoming Encounters Date Type Department Care Team (Late st Contact Info) Description 05/18/2024 10:30 AM EST Office Visit [facility] MEDICINE [address] [place] [phone] Tommy Chance MD [address] [place] [address] 05/29/2024 2:00 PM EDT Medication Management [facility] MEDICINE [address] [place] [phone] Yu Busby PharmD [address] [place] [address] documented as of this encounter Goals Goal [...] documented as of this encounter Care Teams Plisse Machine Operator Helper Relationship Specialty Start Date End Date Angelique Grace DO [address] [place] [address] PCP - General Family Medicine 03/14/18 Yu Busby PharmD [address] [place] [address] Pharmacist Internal Medicine 11/03/22 documented as of this encounter
--- OUTSIDE RECORDS SUMMARY | 2024-05-08 11:31 | XMS_ITS | Encounter Summary ---
Author Organization [employer] Address [address] [facility] 7t [place] [address] Care Team Providers Care Army Manager Name Role Phone Angelique Grace DO Primary Care Provider Yu Busby PharmD Unavailable [phone] Reason for Visit * Reason Onset Date Comments Medication Question 12/15/2022 nitroglyceri n (Nitrostat) 0.4 MG SL tablet Encounter Details Date Type Department Care Team (Late st Contact Info) Description 12/15/2022 Telephone [facility] MEDICINE [address] [place] [address] Angelique Grace DO [address] [place], [place] [phone] Medication Question (nitroglycerin (Nitrostat) 0.4 MG SL tablet) Social History Tobacco Use Types Packs/Day Years Used Date Smoking Tobacco: Some Days Cigarettes Passive Smoke Exposure: Current Smokeless Tobacco: Never Alcohol Use Standard Drinks/Week Comments Never 0 (1 standard drink = 0.6 oz pur e alcohol) Depression Answer Date Recorded Patient Health Questionnaire-9 Score 0 06/08/2022 Depression Answer Date Recorded Patient Health Questionnaire-2 Score 0 06/08/2022 Comments Unknown Sex and Gender Information Value Date Recorded Sex Assigned at Female 01/11/2022 10:15 AM EDT Legal Sex Female 10:15 AM EDT Gender Identity Female 01/11/2022 10:15 AM EDT Sexual Orientation Straight 01/11/2022 10 :15 AM EDT documented as of this encounter Miscellaneous Notes * Telephone Encounter - Eyal Ryder - 12/15/2022 2:05 PM EDT Referral to Cardiology found 01/2022. Dr. Bruno # [phone] FAX [phone] * Telephone Encounter - Snow Pickard - 12/15/2022 1:51 PM EDT Tc from pt requesting status on last message . Aoc Director Combat Operations Officer informed has to contact her cardiology dr whoprescribes medication . * Telephone Encounter - Aleida Celis - 12/15/2022 10:48 AM EDT Tc from patient requesting medication nitroglycerin (Nitrostat) 0.4 MG SL tablet. Patient states she is traveling to [place] due to Mom's passing on 12/09/22. Patient is afraid with crying and emotions of getting chest pain as she has in the past. She's traveling at 3 pm today. Patient denied any symptoms at this time. Patient speaks tajik. documented in this encounter Plan of Treatment Upcoming Encounters Date Type Department Care Team (Late st Contact Info) Description 05/18/2024 10:30 AM EST Office Visit [facility] MEDICINE [address] [place] [phone] Tommy Chance MD [address] [place] [address] 05/29/2024 2:00 PM EDT Medication Management [facility] MEDICINE [address] [place] [phone] Yu Busby PharmD [address] [place] [address] documented as of this encounter Goals Goal Patient Goal Type Associated Problems Recent Progress Patient-Stated? Author Smoking cessation General No Yu Busby PharmD Hemoglobin A1c < 7 Result Component 7.3( 5 2:54 PM EST) No Castillo Pradhan PharmYusef Record your blood sugar as directed Result Component No Yu Busby PharmD documented as of this encounter Visit Diagnoses Not on filedocumented in this encounter Additional Health Concerns Assessment Noted Time PHQ-9 Depression Total Score: 0 06/09/19 23 11:27 AM EDT documented as of this encounter Care Teams Army Manager Relationship Specialty Start Date End Date Angelique Grace DO [address] [place] [address] PCP - General Family Medicine 03/14/18 Yu Busby PharmD [address] [place] [address] Pharmacist Internal Medicine 11/03/22 documented as of this encounter
--- OUTSIDE RECORDS SUMMARY | 2024-05-08 11:31 | XMS_ITS | Encounter Summary ---
Author Organization [employer] Address [address] [facility] 7t [place] [address] Care Team Providers Care Grain Scooper Name Role Phone SanjayAngelique Primary Care Provider [phone] Yu Busby PharmD Unavailable [phone] Reason for Visit * Reason Comments Med Refill Encounter Details Date Type Department Care Team (Late st Contact Info) Description 01/05/2023 Refill [facility] MEDICINE [address] [place] [address] Shea Balderas MD [address] [place] [address] Social History Tobacco Use Types Packs/Day Years [...] Description 05/18/2024 10:30 AM EST Office Visit [facility] MEDICINE [address] [place] [phone] Tommy Chance MD [address] [place] [phone] 05/29/2024 2:00 PM EDT Medication Management [facility] MEDICINE [address] [place] [address] Puia, Yu, PharmD [address] [place] [address] documented as of this encounter Goals Goal [...] documented as of this encounter Care Teams Grain Scooper Relationship Specialty Start Date End Date Angelique Grace DO [address] [place] [address] [phone] PCP - General Family Medicine 03/14/18 Yu Busby, PharmD [address] [place] [phone] Pharmacist Internal Medicine 11/03/22 documented as of this encounter
--- OUTSIDE RECORDS SUMMARY | 2024-05-08 11:31 | XMS_ITS | Clinical Summary ---
Author Organization [employer] Address [address] [facility] [address] [place] [address] Care Team Providers Care Radiology Physician Assistant Name Role Phone CalebAngelique espinoza Primary Care Provider Yu Busby PharmD Unavailable Allergies Active Allergy Reactions Criticality Noted Date Comments Atorvastatin 10/02/2012 Other reaction(s): Muscle cramp / pain , muscle cramps Enalapril Shortness of breath,Rash High 12/16/2011 Lisinopril Hives,Shortness of breath,Angioedema High 06/04/2010 Metronidazole Unknown 05/19/2012 Other reaction(s): ? palpitations, Altered Heart Rate Oxycodone Vomiting 03/31/2010 Medications naloxone (Narcan) 4 mg/0.1 mL nasal spray spray 0.1 milliliter by intranasal route in 1 nostril may repeat dose every 2-3 minutes as needed alternating nostrils with each dose Active omega-3 (Fish Oil) 1000 MG capsule Take 1 capsule by mouth 2 times daily. Active E-400 180 MG (400 UNIT) capsule take 2 capsules by oral route every day at bedtime Active Blood Glucose Monitoring Suppl (kiwi666Style Lite) deviceIndications :Type 2 diabetes mellitus without complication, with long-term current use of insulin ([facility]) Inject 1 each under the skin 3 times daily. Use to test blood sugar three times daily, as directed 1 each Active nystatin (Mycostatin) 137782 UNIT/GM powder Apply topically 2 times daily. 120 g 3 024 2024 Active busPIRone (Buspar) 15 MG tablet Take 1 tablet by mouth 2 times daily. Active escitalopram (Lexapro) 20 MG tablet Take 10 mg by mouth in the morning. Active omeprazole (PriLOSEC) [address] capsule TAKE ONE CAPSULE BY MOUTH TWICE A DAY BEFORE BREAKFAST AND SUPPER 180 capsule 1 Active dapagliflozin (Farxiga) 5 MGIndications:Typ e 2 diabetes mellitus without complication, with long-term current use of insulin (CMS/[facility]) TAKE ONE TABLET BY MOUTH EVERY DAY IN THE MORNING 90 tablet 3 024 Active pregabalin (Lyrica) 100 MG capsuleIndication s:Neuropathy TAKE ONE CAPSULE BY MOUTH THREE TIMES A DAY 90 capsule 1 Active baclofen (Lioresal) 10 MG tablet Take one tablet TID PRN 60 tablet 3 Active Diclofenac Sodium 1 % gelIndications:Pa in APPLY 2 GRAMS TOPICALLY FOUR TIMES A DAY TO THE AFFECTED AREA(S) IF NEEDED FOR PAIN 100 g 3 Active ascorbic acid (Vitamin C) 250 MG tablet TAKE 1 TABLET BY MOUTH TWICE A DAY WITH FERROUS SULFATE 180 tablet 1 Active amLODIPine (Norvasc) 5 MG tabletIndications :Primary hypertension TAKE 1 & 1/2 TABLETS BY MOUTH EVERY DAY 135 tablet 3 Active Ketotifen Fumarate 0.035 % solution Administer 1 drop into affected eye(s) if needed in the morning and at bedtime (itching). 10 mL 3 Active meloxicam (Mobic) 15 MG tablet Take 1 tablet (15 mg) by mouth if needed each day for moderate pain or mild pain. 30 tablet 2 024 2024 Active rosuvastatin (Crestor) 20 MG tablet Take 1 tablet (20 mg) by mouth Once per day. 90 tablet 1 024 Active Procto-Med HC 2.5 % rectal cream apply by topical route 4 times every day to the affected area(s) as needed for Hemorrhoids 28 g 2 024 Active Aspirin Low Dose 81 MG EC tabletIndications :Type 2 diabetes mellitus without complication, with long-term current use of insulin ([facility]) TAKE ONE TABLET BY MOUTH EVERY MORNING 90 tablet 3 Active butalbital-acetam inophen-caffeine 50-325-40 MG tablet TAKE ONE TABLET BY MOUTH EVERY 4 HOURS NEEDED. MAX 2 TABLETS PER 24 HOURS 20 tablet Active cholecalciferol (Vitamin D-3) 50 MCG (1999 UT) tabletIndications :Vitamin D deficiency TAKE ONE TABLET BY MOUTH EVERY DAY 90 tablet Active Semaglutide,0.25 or 0.5MG/DOS, (Ozempic, 0.25 or 0.5 MG/DOSE,) 2 MG/3ML solution pen-injectorIndic ations:Type 2 diabetes mellitus without complication, with long-term current use of insulin (CMS/[facility]) Inject 0.25 mg under the skin 1 (one) time per week for 28 days, THEN 0.5 mg 1 (one) time per week for 28 days. 3 mL 025 2024 Active insulin glargine (Toujeo SoloStar) 300 UNIT/ML injectionIndicati ons:Type 2 diabetes mellitus without complication, with long-term current use of insulin (CMS/[facility]) Inject 46 Units under the skin Once per day. Increase as directed to max of 50 units per day 15 mL 025 Active Alcohol Swabs padsIndications:T ype 2 diabetes mellitus without complication, with long-term current use of insulin (CMS/HCC) USE DIRECTED FOUR TIMES A DAY FOR BLOOD SUGAR TESTING AND INSULIN INJECTION 200 each Active glucose blood (FREESTYLE LITE) test stripIndications: Type 2 diabetes mellitus without complication, with long-term current use of insulin (CMS/HCC) Test blood sugars three times a day 100 each 025 Active insulin pen needle (B-D ULTRAFINE III SHORT PEN) 31G X 8 mm miscIndications:T ype 2 diabetes mellitus without complication, with long-term current use of insulin (CMS/HCC) Use once daily for insulin injection 100 each 025 Active TRUEplus Lancets 33G miscIndications:T ype 2 diabetes mellitus without complication, with long-term current use of insulin (CMS/HCC) Use to test blood sugar 3 time(s) daily 100 each 11 025 Active lidocaine (Lidoderm) 5 % patch Apply 1-2 patches topically Once per day. Remove & discard patch within 12 hours or as directed by . 60 patch 1 025 Active oxyCODONE-acetami nophen (Percocet) 5-325 MG tabletIndications :Chronic right-sided low back pain without sciatica Take 1 tablet by mouth every 12 (twelve) hours if needed for severe pain for up to 28 days. 56 tablet 025 2024 Active nitroglycerin (Nitrostat) 0.[address] 1 TABLET SUBLINGUALLY EVERY 5 MINUTES NEEDED FOR CHEST PAIN. DO NOT EXCEED 3 DOSES/15MINUTES . IF PAIN PERSISTS SEEK MEDICAL ATTENTI 022 2024 Discontinued(M ed list cleanup (will not trigger notification to Pharmacy)) glucose blood (FREESTYLE LITE) test stripIndications: Type 2 diabetes mellitus without complication, with long-term current use of insulin ([facility]) Test blood sugars three times a day 100 each 11 023 2024 Discontinued(R eorder (will not trigger notification to Pharmacy)) TRUEplus Lancets 33G miscIndications:T ype 2 diabetes mellitus without complication, with long-term current use of insulin ([facility]) Use to test blood sugar 3 time(s) daily 100 each 11 023 2024 Discontinued(R eorder (will not trigger notification to Pharmacy)) Aspirin Low Dose 81 MG EC tabletIndications :Type 2 diabetes mellitus without complication, with long-term current use of insulin ([facility]) Take 1 tablet (81 mg) by mouth in the morning. 90 tablet 3 023 2024 Discontinued acetaminophen (Tylenol 8 Hour) 650 MG ER tabletIndications :Degeneration of lumbar intervertebral disc Take 1 tablet (650 mg) by mouth every 8 (eight) hours if needed for mild pain. Do not crush, chew, or split. 60 tablet 2 023 2024 Discontinued(M ed list cleanup (will not trigger notification to Pharmacy)) cetirizine (ZyrTEC) 10 MG tablet Take 1 tablet (10 mg) by mouth in the morning. 30 tablet 11 024 2024 Discontinued(M ed list cleanup (will not trigger notification to Pharmacy)) insulin pen needle (B-D ULTRAFINE III SHORT PEN) 31G X 8 mm miscIndications:T ype 2 diabetes mellitus without complication, with long-term current use of insulin ([facility]) Use once daily for insulin injection 100 each 3 024 2024 Discontinued(R eorder (will not trigger notification to Pharmacy)) cholecalciferol (Vitamin D-3) 50 MCG (1999 UT) tabletIndications :Vitamin D deficiency TAKE ONE TABLET BY MOUTH EVERY DAY 90 tablet 1 024 2024 Discontinued cyclobenzaprine (Flexeril) 10 MG tabletIndications :Chronic right-sided low back pain without sciatica Take 1 tablet (10 mg) by mouth if needed at bedtime for muscle spasms for up to 5 days. 5 tablet 024 2024 Discontinued(M ed list cleanup (will not trigger notification to Pharmacy)) insulin glargine (Toujeo SoloStar) 300 UNIT/ML injectionIndicati ons:Type 2 diabetes mellitus without complication, with long-term current use of insulin ([facility]) Inject 42 Units under the skin Once per day. 4.5 mL 5 024 2024 Discontinued(R eorder (will not trigger notification to Pharmacy)) butalbital-acetam inophen-caffeine 50-325-40 MG tablet TAKE ONE TABLET BY MOUTH EVERY 4 HOURS NEEDED. MAX 2 TABLETS PER 24 HOURS 20 tablet 1 024 2024 Discontinued Alcohol Swabs padsIndications:T ype 2 diabetes mellitus without complication, with long-term current use of insulin ([facility]) USE DIRECTED FOUR TIMES A DAY FOR BLOOD SUGAR TESTING AND INSULIN INJECTION 100 each 11 024 2024 Discontinued(R eorder (will not trigger notification to Pharmacy)) sucralfate (Carafate) 1 g tablet Take 1 tablet (1 g) by mouth before breakfast, before lunch, before evening meal, and at bedtime. 28 tablet 025 2024 Discontinued(M ed list cleanup (will not trigger notification to Pharmacy)) Hospital, Clinic, or Other Facility Administered Medication Ordered Dose Route Frequency Start Date End Date Status aspirin EC tablet 325 mgIndications:Chest pain, unspecified type 325 mg PO Daily 12/13/2022 Ac tive nitroglycerin (Nitrostat) SL tablet 0.4 mgIndications:Chest pain, unspecified type 0.4 mg SL Every 5 min PRN 12/13/2022 Active Active Problems Problem Noted Date Diagnosed Date Generalized abdominal pain 03/27/2024 Assessment & Plan (03/27/2024 7:24 PM EST): Most likely viral gastroenteritis, unclear if related to Ozempic as she describes it is usually associated with constipation. Pt will hold Ozempic this week and FU with CDTM program in 2 weeks. Advised regarding increased PO hydration and advanced to PRAT diet as tolerated. Take Zofran PRN and Sucralfate AC meals and as needed for pain. FU with PCP. Dietary counseling 01/28/2024 Exercise counseling 01/28/2024 Assessment & Plan (01/28/2024 12:42 PM EST): Encouraged continuing pt exercises and walking Renal pain 12/30/2023 Assessment & Plan (01/07/2024 12:47 PM EDT): Reassuring UA, I suspect back pain as source, Kidney stone on left side 11/24/2023 Encounter for preventive health examination 11/12 Chronic pain of both knees 07/10/2023 Hair loss 03/02/2023 Assessment & Plan (03/02/2023 9:10 AM EST): Derm referral Chronic sacroiliac pain 02/23/2023 02/24/20 23 Chronic gastroesophageal reflux disease 06/09/19 23 Tobacco dependence in remission 04/09/2022 Left leg paresthesias 03/31/2022 Type 2 diabetes mellitus 09/20/2017 Chronic interstitial cystitis 09/20/2017 Assessment & Plan (03/02/2023 9:11 AM EST): Potential exacerbation of this Continue cranberry tablets prn, increase hydration Consider flexeril/urology referral if this is not sufficient Chronic low back pain 12/23/2014 Assessment & Plan (01/28/2024 12:41 PM EST): Has completed physical therapy, encouraged compliance and walking Degenerative disc disease, lumbar 12/23/2014 Assessment & Plan (01/28/2024 12:40 PM EST): Chronic issue, radiculopathy noted Previous MR not completeled Essential hypertension 12/23/2014 Fatty liver 12/23/2014 Chronic migraine 12/23/2014 Hyperlipidemia 12/23/2014 Major depression, recurrent, chronic 12/23/2014 Nonobstructive atherosclerosis of coronary arter y 12/23/2014 Anxiety 12/23/2014 Allergic rhinitis 12/23/2014 Resolved Problems Problem Noted Date Diagnosed Date Resolved Date Elevated LFTs 10/04/2022 07/10/2023 Assessment & Plan (10/04/2022 3:42 PM EDT): Continue to monitor GI referral Vaginal itching 10/04/2022 07/10/2023 Assessment & Plan (10/04/2022 3:42 PM EDT): Patient reports she started her vaginal cream today and felt better, I advise to finish he treatment Pelvic pain 06/08/2022 06/08/2022 Diabetes 06/08/2022 06/08/2022 HLD (hyperlipidemia) 06/08/2022 023 Chronic hypertension 06/08/2022 023 Class 2 obesity 04/09/2022 04/21/2022 Hand eczema 03/31/2022 07/10/2023 Encounters Date Type Department Care Team Description 05/03/2024 Telephone [facility] [address] [place] [address] Angelique Grace DO Durable Medical Equipment 05/02/2024 Patient Outreach [facility] [address] [place], [place] [id number] Angelique Grace DO Care Coordination (Outreach) 04/26/2024 Refill [facility] [address] [place] [address] Angelique Grace DO 04/26/2024 Refill [facility] [address] [place] [address] Angelique Grace DO Chronic right-sided low back pain without sciatica (Primary Dx) 04/24/2024 Patient Outreach [facility] [address] [place] [address] Angelique Grace DO Care Coordination (Outreach) 04/22/2024 Orders Only [facility] [address] [facility] [place] [place] [address] Angelique Grace DO Type 2 diabetes mellitus without complication, with long-term current use of insulin (CMS/[facility]) (Primary Dx) 04/22/2024 Orders Only GENERIC EXTERNAL DATA DEPARTMENT Provider, Generic External Data 04/14/2024 Refill [facility] [address] [facility] [place] [address] Yu Busby PharmD Type 2 diabetes mellitus without complication, with long-term current use of insulin (CMS/HCC) 04/08/2024 Refill [facility] [address] [facility] [place] [place] [address] Angelique Grace DO Type 2 diabetes mellitus without complication, with long-term current use of insulin (CMS/HCC); Vitamin D deficiency 04/05/2024 Telephone [facility] [address] [facility] [place] [place] [address] Angelique Grace DO Medication Question 03/28/2024 Patient Outreach [facility] [address] [place] [address] Angelique Grace DO Care Coordination (Outreach) 03/27/2024 3:00 PM EST Office Visit [facility] [address] [facility] [place] [address] Ilsa Reid MD Generalized abdominal pain (Primary Dx) 03/27/2024 Travel 03/27/2024 Orders Only GENERIC EXTERNAL DATA DEPARTMENT Provider, Generic External Data 03/27/2024 Telephone [facility] [address] [place] [address] Yu Busby, PharmD 03/26/2024 Telephone [facility] [address] [place] [address] Angelique Grace DO ER Follow-up; Nurse Triage 03/26/2024 Patient Outreach [facility] [address] [facility] [address] Angelique Grace DO Care Coordination (Outreach) 03/25/2024 Orders Only GENERIC EXTERNAL DATA DEPARTMENT Provider, Generic External Data 03/23/2024 Telephone [facility] [address] [place] [address] Angelique Grace DO Medication Question 03/21/2024 Orders Only GENERIC EXTERNAL DATA DEPARTMENT Provider, Generic External Data 03/01/2024 Telephone [facility] [address] [place] [address] Yu Busby, PharmD Prior Authorization (Ozempic ) 03/01/2024 Telephone [facility] [address] [place] [address] Angelique Grace DO Med Refill 02/28/2024 Orders Only [facility] [place] [address] Angelique Grace DO Low TSH level (Primary Dx) 02/28/2024 Orders Only [facility] [place] [address] Angelique Grace DO Chronic bilateral low back pain, unspecified whether sciatica present (Primary Dx) 02/28/2024 Refill [facility] [address] [place] [address] Angelique Grace DO Neuropathy 02/28/2024 Telephone [facility] [address] [place] [address] Angelique Grace DO telephone call 02/28/2024 Travel 02/24/2024 Refill [facility] [address] [place] [address] Angelique Grace DO 02/24/2024 Refill [facility] [address] [place] [address] Angelique Grace, Primary hypertension; Pain; Neuropathy 02/16/2024 Telephone [facility] [address] [place] [address] Angelique Grace, Medication Question 02/15/2024 Refill [facility] [address] [place] [address] Angelique Grace, 02/15/2024 Telephone [facility] [address] [place] [address] Angelique Grace, Referral from Last 3 Months Immunizations Name Administration Dates Next Due Hep A, Adult 10/11/2017,12/21/2006 Hep B, adult 11/10/2016, 7,03/02/2016,04/22,03/24/2009,12/21/2006 Influenza injectable quadriv alent IIV4 with preservative 12/08/2017,12/23/2014 Influenza injectable quadriv alent preservative free 02/09/2023,01/12/2022,01/29/2021,12/26,12/21/2018,12/28/2016,12/25/2015 Influenza, IIV3, injectable 12/14/2013,1 ,11/21/2009,11/29,12/29/2007,12/01/2006,02/02/2006 ,02/09/2005,02/13/2004,01/05/2002,12/12,12/30/1999 Influenza, Split (incl. portillo fied surface antigen) 12/01/2012,12/16/2011 Influenza, seasonal, injecta ble, preservative free 11/29/2023 Moderna Covid-19 Vaccine 12+ 06/05/2021,08/16/19 21,07/18/2020 Moderna Covid-19 Vaccine 6+ Bivalent 06/08/2022 Pfizer Covid-19 Vaccine 12+ 01/06/2024, Pneumococcal Conjugate PCV 20 06/07/2023 Pneumococcal Polysaccharide PPSV23 02/05/2014,,12/26/2000 Rabies, IM Diploid Cell Culture 11/20/2022 TD (adult), 2 Lf tetanus tox oid, preservative free, adsorbed 01/16/1998 Tdap 11/20/2022,03/01/2013 Zoster, Recombinant 06/25/2021,04/20/2021 Family History Medical History Relation Name Comments Alcohol abuse Father Diabetes Father Hypertension Father Stroke Father Breast cancer Maternal Cousin Coronary artery disease Mother Depression Mother Diabetes Mother Hyperlipidemia Mother Hypertension Mother Relation Name Status Comments Father Maternal Cousin Other Mother Social History Tobacco Use Types Packs/Day Years Used Date Smoking Tobacco: Former Cigarettes Passive Smoke Exposure: Past Smokeless Tobacco: Never Tobacco Cessation:Counseling Given: Not Answered Comments:Quit about 2 mo ago Alcohol Use [...] t he electric, gas, oil or water [employer] threatened to shut off services in your [...] Orientation Straight 01/11/2022 10 :15 AM EDT Last Filed Vital Signs Vital Sign Reading Time Taken Comments Blood Pressure 135/84 03/27/2024 3:10 PM EST Pulse 80 03/27/2024 3:10 PM EST Temperature 36.4 ??C (97.6 ??F) 03/27/2024 3:10 PM ES T Respiratory Rate 12 03/27/2024 3:10 PM EST Oxygen Saturation 97% 12/30/2023 1:19 PM EDT Inhaled Oxygen Concentration - - Weight 77.7 kg (171 lb 6.4 oz) 04/17/2024 2:45 P M EST Height 154.9 cm (5' 1 ) 03/27/2024 3:10 PM EST Body Mass Index 32.39 03/27/2024 3:10 PM EST Plan of Treatment Upcoming Encounters Date Type Department Care Team (Late st Contact Info) Description 05/18/2024 10:30 AM EST Office Visit [facility] [address] [place] [phone] Tommy Chance MD [address] [place] [address] 05/29/2024 2:00 PM EDT Medication Management [facility] [address] [place] [phone] Yu Busby, PharmD [address] [place] [address] Health Maintenance Due Date Last Done Comments CT Colonography 1970 Colonoscopy 1970 Colorectal Cancer Screening 1970 FIT DNA/Cologuard 1970 FIT 1970 FOBT 1970 Sigmoidoscopy 1970 Diabetes: Foot Exam 1980 Eye Exam 1980 Alcohol/Substance Use Screening 1982 Depression Screening 06/09/2023 06/08/2022, 06/09/19 23 Diabetes: Hemoglobin A1C 07/15/2024 02 025, 01/06/2024, 11/29/2023, Additional history exists Diabetes: Urine Protein Screening 01/05/2025 01/06/2024, 09/29/2022, 10/22/2021, Additional history exists Lipid Panel 01/05/2025 01/06/2024, 08/2023, 09/29/2022, Additional history exists Mammogram 03/21/2025 03/21/2024, 05/2023, 03/10/2022, Additional history exists Tobacco Screening 03/27/2025 03/27/2024 SDOH Screening 05/02/2025 05/02/2024 Cervical Cancer Screening 04/02/2027 HPV/Cotest 04/02/2027 04/02/2022 Pap Smear 04/02/2027 04/02/2022, 09/11/2020 DTaP/Tdap/Td Vaccines (3 - Td or Tdap) 11/20/2032 11/20/2022, 03/01/2013, 01/16/1998 RSV Patients and Patients Aged 60 years or older (1 - 1-dose 75+ series) 2045 Hepatitis B Vaccines Completed 11/10/2016, 06/02/2016, 03/02/2016, Additional history exists Hepatitis A Vaccines Completed 10/11/2017, 12/22/19 07 Zoster Vaccines Completed 06/25/2021, 04/20/2021 Pneumococcal Vaccine: 50+ Years Completed 06/07/2023, 02/05/2014, 05/10/2007, Additional history exists Influenza Vaccine Completed 11/29/2023, , 01/12/2022, Additional history exists COVID-19 Vaccine Completed 01/06/2024, , 06/08/2022, Additional history exists HIV Screening Completed 01/06/2024, 09/11, 10/22/2021, Additional history exists Hepatitis C Screening Completed 01/06/2024 , 09/29/2022, 10/22/2021, Additional history exists HIB Vaccines Aged Out No longer eligi ble based on patient's age to complete this topic HPV Vaccines Aged Out No longer eligi ble based on patient's age to complete this topic IPV Vaccines Aged Out No longer eligi ble based on patient's age to complete this topic Meningococcal Vaccine Aged Out No caroline ferdinand eligible based on patient's age to complete this topic RSV under 20 months Aged Out No longe r eligible based on patient's age to complete this topic Rotavirus Vaccines Aged Out No longer eligible based on patient's age to complete this topic Goals Goal Patient Goal Type Associated Problems Recent Progress Patient-Stated? Author Smoking cessation General No Yu Busby PharmD Hemoglobin A1c < 7 Result Component 7.3( 2:54 PM EST) No Castillo Pradhan PharmD Record your blood sugar as directed Result Component No Yu Busby PharmD Procedures Procedure Name Priority Date/Time Associated Diagnosis Comments URINALYSIS, COMPLETE, WITH REFLEX TO CULTURE Routine 04/22/2024 4:58 PM EST CULTURE, URINE, ROUTINE Routine 04/22/2024 12:00 AM EST Type 2 diabetes mellitus without complication, with long-term current use of insulin ([facility]) POCT GLYCATED HEMOGLOBIN, TOTAL Routine 04/17/2024 2:54 PM EST Type 2 diabetes mellitus without complication, with long-term current use of insulin ([facility]) TSI (THYROID STIMULATING IMMUNOGLOBULIN) Routine 03/27/2024 1:40 PM EST TRAB (TSH RECEPTOR BINDING ANTIBODY) Routine 03/27/2024 1:40 PM EST THYROID PEROXIDASE ANTIBODIES Routine 03/27/2024 1:40 PM EST T3, TOTAL Routine 03/27/2024 1:40 PM EST TSH Routine 03/27/2024 1:40 PM EST T4, FREE Routine 03/27/2024 1:40 PM EST HEPATIC FUNCTION PANEL Routine 03/27/2024 1:40 PM EST CBC WITH AUTO DIFFERENTIAL Routine 03/27/2024 1:40 PM EST XR KUB AND UPRIGHT 2 VIEWS Routine 03/25/2024 10:35 PM EST URINALYSIS, COMPLETE, WITH REFLEX TO CULTURE Routine 03/25/2024 8:12 PM EST SARS COV2/INFLUENZA A/B AND RSV RNA QL NAAT Routine 03/25/2024 5:30 PM EST LIPASE Routine 03/25/2024 5:29 PM EST MAGNESIUM Routine 03/25/2024 5:29 PM EST COMPREHENSIVE METABOLIC PANEL Routine 03/25/2024 5:29 PM EST CBC WITH AUTO DIFFERENTIAL Routine 03/25/2024 5:29 PM EST BASIC METABOLIC PANEL Routine 03/21/2024 4:24 PM EST BI MAMMOGRAM SCREENING TOMOSYNTHESIS BILATERAL Routine 03/21/2024 2:15 PM EST HEPATITIS C AB W/REFL TO HCV RNA, QN, PCR Routine 01/06/2024 2:02 PM EDT Routine history and physical examination of adult Type 2 diabetes mellitus without complication, with long-term current use of insulin (CMS/HCC) Essential hypertension Other hyperlipidemia Fatty liver Nonobstructive atherosclerosis of coronary artery Major depression, recurrent, chronic (CMS/HCC) Chronic gastroesophageal reflux disease Chronic migraine Chronic pain of both knees Chronic bilateral low back pain, unspecified whether sciatica present Left leg paresthesias Abdominal pannus Left buttock pain Decreased libido BMI 31.0-31.9,adult HIV 1/2 ANTIGEN/ANTIBODY, FOURTH GENERATION W/RFL Routine 01/06/2024 2:02 PM EDT Routine history and physical examination of adult Type 2 diabetes mellitus without complication, with long-term current use of insulin (CMS/HCC) Essential hypertension Other hyperlipidemia Fatty liver Nonobstructive atherosclerosis of coronary artery Major depression, recurrent, chronic (CMS/HCC) Chronic gastroesophageal reflux disease Chronic migraine Chronic pain of both knees Chronic bilateral low back pain, unspecified whether sciatica present Left leg paresthesias Abdominal pannus Left buttock pain Decreased libido BMI 31.0-31.9,adult LIPID PANEL, STANDARD Routine 01/06/2024 2:02 PM EDT Routine history and physical examination of adult Type 2 diabetes mellitus without complication, with long-term current use of insulin (CMS/HCC) Essential hypertension Other hyperlipidemia Fatty liver Nonobstructive atherosclerosis of coronary artery Major depression, recurrent, chronic (CMS/HCC) Chronic gastroesophageal reflux disease Chronic migraine Chronic pain of both knees Chronic bilateral low back pain, unspecified whether sciatica present Left leg paresthesias Abdominal pannus Left buttock pain Decreased libido BMI 31.0-31.9,adult ALBUMIN, RANDOM URINE W/CREATININE Routine 01/06/2024 1:54 PM EDT Routine history and physical examination of adult Type 2 diabetes mellitus without complication, with long-term current use of insulin (CMS/HCC) Essential hypertension Other hyperlipidemia Fatty liver Nonobstructive atherosclerosis of coronary artery Major depression, recurrent, chronic (CMS/HCC) Chronic gastroesophageal reflux disease Chronic migraine Chronic pain of both knees Chronic bilateral low back pain, unspecified whether sciatica present Left leg paresthesias Abdominal pannus Left buttock pain Decreased libido BMI 31.0-31.9,adult HM PAP/HPV Routine 04/02/2022 from Last 3 Months or Most Recently Relevant to Health Maintenance Results * (ABNORMAL) Urinalysis, Complete, with Reflex to Culture (04/22/2024 4:58 PM EST) Only the most recent of2 resultswithin the time period is included. Color Urine Yellow [facility] Appearance Urine Turbid [facility] PH 6.0 5.0 - 9.0 [facility] Glucose Urine UA >=1000(A) Negative mg/dL [facility] Urine Blood Moderate (2+)(A) Negative [facility] Specific [place] - Urine >=1.030(H) 1.005 - 1.025 [facility] Urine Protein Trace Neg-Trace mg/dL [facility] Urine Ketones Negative Negative mg/dL [facility] Nitrite Urine Negative Negative [facility] Leukocyte Esterase Urine Moderate (2+)(A) Negative [facility] RBC Urine 11-20(A) 0 - 2 /HPF [facility] Urine WBC >50(A) 0 - 5 /HPF [facility] Urine Squamous Epithelial Cell 0-2 0 - 2 /HPF [facility] Urine Bacteria Trace None Seen [facility] Hyaline Casts, Urine 0-2 0 - 2 /LPF [facility] 04/22/2024 4:58 PM EST 04/22/2024 5:06 PM EST Narrative [facility] - 04/22/2024 5:20 PM EST Urine, Clean Catch Generic External Data Provider LAB URINE ORDERAB LES Final Result Performing Organization Address [facility]/ZIP Co de Phone Number [facility] [address] [place] [address] [phone] * Culture, Urine, Routine (04/22/2024 12:00 AM EST) Urine Urine specimen obtained by clean catch procedure / Unknown 04/22/2024 04/22/2024 Comment:[facility] Narrative [facility] - 04/24/2024 7:22 AM EST Escherichia coli Quant 10,000 to 50,000 cfu/mL Escherichia coli: Ampicillin <=2(S) Escherichia coli: Cefazolin (Urine) <=1(S) Escherichia coli: Cefepime <=0.12(S) Escherichia coli: Ceftriaxone <=0.25(S) Escherichia coli: Ciprofloxacin <=0.06(S) Escherichia coli: Gentamicin <=1(S) Escherichia coli: Nitrofurantoin <=16(S) Escherichia coli: Trimethoprim/Sulfamethoxazole <=20(S) Specimen Source: Urine clean catch Generic External Data Provider LAB MICROBIOLOGY - GENERAL ORDERABLES Final Result Performing Organization Address [facility]/ZIP Co de Phone Number [facility] [address] [place] [address] [phone] * (ABNORMAL) POCT HGB A1C (04/17/2024 2:54 PM EST) Hemoglobin A1C 7.3(A) 4.0 - 6.0 % QC Media Lot # [id number] Blood 04/17/2024 2:54 PM EST Angelique Sanjay DO POINT OF CARE TEST ENTER/ARETHA T ORDERABLES Final Result * CBC auto differential (03/27/2024 1:40 PM EST) Only the most recent of2 resultswithin the time period is included. White Blood Count 6.5 4.8 - 10.8 X10*3/uL [facility] Red Blood Count 4.64 4.20 - 5.50 X10*6/uL [facility] Hemoglobin 14.0 12.0 - 16.0 g/dl [facility] Hematocrit 41.0 37.0 - 47.0 % [facility] Mean Corpuscular Volume 88.4 80.0 - 98.0 fL [facility] Mean Corpuscular Hemoglobin 30.2 27.0 - 33.0 pg [facility] Mean Corpuscular HGB Conc 34.1 31.0 - 35.0 g/dl [facility] Red Cell Distribution Width 13.5 11.0 - 16.0 % [facility] Platelet Count 229 160 - 400 X10*3/uL [facility] Mean Platelet Volume 10.8 9.4 - 12.3 fL [facility] Neutrophils Percent Auto 57.4 45 - 73 % [facility] Imm Gran Pct Auto 0.2 0.0 - 0.4 % [facility] Lymphocytes Percent Auto 31.6 20 - 40 % [facility] Monocytes Percent Auto 6.3 2 - 11 % [facility] Eosinophils Percent Auto 4.0 0 - 4 % [facility] Basophils Percent Auto 0.5 0 - 2 % [facility] NRBC Pct Auto 0.0 0.0 - 0.2 /100WBC [facility] Neutrophils Absolute Auto 3.7 2.0 - 8.3 x10*3/uL [facility] Imm Gran Abs Auto 0.01 0.00 - 0.03 X10*3/uL [facility] Lymphocytes Absolute Auto 2.1 1.2 - 4.9 X10*3/uL [facility] Monocytes Absolute Auto 0.4 0.1 - 1.2 X10*3/uL [facility] Eosinophils Absolute Auto 0.3 0.0 - 0.4 X10*3/uL [facility] Basophils Absolute Auto 0.0 0.0 - 0.2 X10*3/uL [facility] NRBC Abs Auto 0.000 0.0 - 0.012 X10*3/uL [facility] 03/27/2024 1:40 PM EST 03/27/2024 1:40 PM EST Generic External Data Provider LAB BLOOD ORDERAB LES Final Result Performing Organization Address [facility] Co de Phone Number [facility] [address] [place] [phone] * Thyroid Peroxidase Antibodies (03/27/2024 1:40 PM EST) Thyroid Peroxidase Antibodies 2 <9 IU/mL [facility] Comment:THIS TEST WAS PERFOR MED AT:[id number] [place] [phone] SANCHEZ MD 03/27/2024 1:40 PM EST 03/27/2024 1:40 PM EST Generic External Data Provider LAB BLOOD ORDERAB LES Final Result Performing Organization Address [facility] Co de Phone Number [facility] [address] [place] [address] [phone] * TSI (Thyroid Stimulating Immunoglobulin) (03/27/2024 1:40 PM EST) Thyroid Stimulating Immunoglobulin <89 <140 % baseline [facility] Comment: Thyroid stimulating immunoglobulins (TSI) can engagethe TSH receptors resulting in hyperthyroidism inGraves' disease patients. TSI levels can be useful inmonitoring the clinical outcome of Graves' disease aswell as assessing the potential for hyperthyroidismfrom maternal- transfer. TSI results greater thanor equal to (>=) 140% of the Reference Control areconsidered positive.NOTE:A serum TSH level greater than 350 micro-InternationalUnits/mL can interfere with the TSI bioassay andpotentially give false positive results.Patients who are and are suspected of havinghyperthyroidism should have both TSI and humanChorionic Gonadotropin(hCG) tests measured. A serumhCG level greater than 40,625 mIU/mL can interferewith the TSI bioassay and may give false negativeresults. In these patients it is recommended thata second TSI be obtained when the hCG concentrationfalls below 40,625 mIU/mL (usually after [id number]-vtnms gestation).The analytical performance characteristics of thisassay have been determined by [place]. ??The modificationshave not been cleared or approved by the FDA. ??Thisassay has been validated pursuant to the CLIAregulations and is used for clinical purposes.THIS TEST WAS PERFORMED AT:[employer] [place], [place] ??[phone] W. MASON,MD,PHD 03/27/2024 1:40 PM EST 03/27/2024 1:40 PM EST us Generic External Data Provider LAB BLOOD ORDERAB LES Final Result [facility] [address] [place] [phone] * TRAb (TSH Receptor Binding Antibody) (03/27/2024 1:40 PM EST) TRAb (TSH Receptor Binding Antibody) <1.00 <=2.00 IU/L [facility] Comment:This test was perfor med using the TRAb Antibody ELISAmethod which is standardized against the 1stInternational Standard 90/672 and is reported inInternational Units (IU/L). The reference rangereported was established specifically for this testmethod.THIS TEST WAS PERFORMED AT:[employer] [place] [phone] RICHEY MD,PHD 03/27/2024 1:40 PM EST 03/27/2024 1:40 PM EST us Generic External Data Provider LAB BLOOD ORDERAB LES Final Result Performing Organization Address [facility]/ZIP Co de Phone Number [facility] [address] [place] [phone] * T3, Total (03/27/2024 1:40 PM EST) Pathologist [facility] T3, Total 118 76 - 181 ng/dL [facility] Comment:THIS TEST WAS PERFOR MED AT:[employer] [address] [phone] SANCHEZ MD 03/27/2024 1:40 PM EST 03/27/2024 1:40 PM EST Generic External Data Provider LAB BLOOD ORDERAB LES Final Result Performing Organization Address [facility] de Phone Number [facility] [address] [place] [phone] * (ABNORMAL) TSH (03/27/2024 1:40 PM EST) Pathologist [facility] Thyroid Stimulating Hormone 0.23(L) 0.32 - 4.0 uIU/mL [facility] Comment:TSH 3rd Generation ( [facility]) 03/27/2024 1:40 PM EST 03/27/2024 1:40 PM EST us Generic External Data Provider LAB BLOOD ORDERAB LES Final Result Performing Organization Address [facility]/ZIP Co de Phone Number [facility] [address] [place] [phone] * T4, Free (03/27/2024 1:40 PM EST) Free T4 (Free Thyroxine) 0.90 0.71 - 1.85 ng/dL [facility] 03/27/2024 1:40 PM EST 03/27/2024 1:40 PM EST Generic External Data Provider LAB BLOOD ORDERAB LES Final Result Performing Organization Address [facility] Co de Phone Number [facility] [address] [place] [address] [phone] * (ABNORMAL) Hepatic Function Panel (03/27/2024 1:40 PM EST) Pathologist [facility] Bilirubin, Total 0.4 0.0 - 1.0 mg/dL [facility] Bilirubin, Direct 0.1 0.0 - 0.5 mg/dL [facility] Aspartate Amino Transferase 37(H) 5 - 31 U/L [facility] Alanine Aminotransferase 47(H) 0 - 31 U/L [facility] Total Protein 7.5 6.5 - 8.0 g/dL [facility] Albumin Level 4.2 3.5 - 5.0 g/dL [facility] Alkaline Phosphatase 67 39 - 117 U/L [facility] 03/27/2024 1:40 PM EST 03/27/2024 1:40 PM EST Generic External Data Provider LAB BLOOD ORDERAB LES Final Result Performing Organization Address [facility] Co de Phone Number [facility] [address] [place] [address] [phone] * XR KUB and Upright 2 Views (03/25/2024 10:35 PM EST) Anatomical Region Laterality Modality Radiographic Lucie ging 03/25/2024 10:3 5 PM EST Narrative 03/25/2024 10:37 PM EST ? [facility] ?[address] ?[place] [address] ?XRay Report ? Signed ? Patient: Neal Cappa,Ginnette ?MR#: M ?? [id number] ? : 1970 ?Acct:[id number] ? Age/Sex: 53 / F ?ADM Date: 03/25/24 ? Loc: HO.ED ? Attending Dr: ? Ordering Physician: Rimma Rojo ?? Date of Service: 03/25/24 ?? Procedure(s): XR KUB ?? Accession Number(s): [id number] ? cc: Rimma Rojo; Angelique Grace DO ? CLINICAL HISTORY: pain ? 1 view abdomen ? Comparison: None ? Findings: ?? Nonobstructive bowel gas pattern. ?? Small nonspecific calcifications adjacent to right L5 transverse process. ?? Lung bases are clear. ?? Compression of T10 vertebral body and degenerative changes of the spine. ? IMPRESSION: ?? 1. Nonobstructive bowel gas pattern. ?? 2. Small calcifications adjacent to right L5 transverse process. If right ?? ureteral stones clinically suspected follow-up noncontrast CT abdomen and ?? pelvis should be obtained. ? This document has been electronically signed by: Breonna Coon MD on ?? 03/25/2024 22:35:30 ? Dictated By: ?Breonna Coon MD ? Signed By: ?<Electronically signed by Breonna Coon MD in OV> ? 03/25/242235 ? DD/ 34 ? TD/TT: 03/25/242234 ? Electrical Automation Engineer: ? Procedure Note Naveen Proctor - 03/25/[address] [address] XRay Report Signed Patient: Maria C LewisMR#: M [id number] : 1970Acct:[id number] Age/Sex: 53 / FADM Date: 03/25/24 Loc: HO.ED Attending Dr: Ordering Physician: Rimma Rojo Date of Service: 03/25/24 Procedure(s): XR KUB Accession Number(s): [id number] cc: Rimma Rojo; Jurcsak,Angelique A DO CLINICAL HISTORY: pain 1 view abdomen Comparison: None Findings: Nonobstructive bowel gas pattern. Small nonspecific calcifications adjacent to right L5 transverse process. Lung bases are clear. Compression of T10 vertebral body and degenerative changes of the spine. IMPRESSION: 1. Nonobstructive bowel gas pattern. 2. Small calcifications adjacent to right L5 transverse process. If right ureteral stones clinically suspected follow-up noncontrast CT abdomen and pelvis should be obtained. This document has been electronically signed by: Breonna Coon MD on 03/25/2024 22:35:30 Dictated By: Breonna Coon MD Signed By: <Electronically signed by Breonna Coon MD in OV> 03/25/242235 DD/ 34 TD/TT: 03/25/242234 Electrical Automation Engineer: [facility] External Provider IMG XR PROCEDURES Edited Result - Final * SARS-CoV-2 RNA, Influenza A/B, and RSV RNA, Ql NAAT (03/25/2024 5:30 PM EST) Influenza A PCR NEGATIVE Negative [facility] Influenza B PCR NEGATIVE Negative [facility] Resp Syncy Virus RNA Qual PCR NEGATIVE Negative [facility] SARS COV2 PCR NEGATIVE Negative [facility] Comment:All test results mus t be correlated with clinical findings.Negative results do not preclude SARS-CoV2, influenza Avirus, influenza B virus and/or RSV infectionand should not be used as the sole basis for treatment orother patient management decisions. Negative results must becombined with clinical observations, patient history, andepidemiological information.This test has not been evaluated for monitoring treatment ofinfection.This test has been authorized by the FDA under an EmergencyUse Authorization (EUA) for use by authorized laboratories.Testing performed on the [employer] GeneXpert utilizingreal-time RT-PCR.All SARS CoV2 and positive influenza A/B results arereported to [facility]. 03/25/2024 5:30 PM EST 03/25/2024 5:53 PM EST Generic External Data Provider LAB MICROBIOLOGY - GENERAL ORDERABLES Final Result [facility] [address] [place] [address] [phone] * Magnesium (03/25/2024 5:29 PM EST) [facility] Magnesium 2.1 1.6 - 2.6 mg/dL [facility] 03/25/2024 5:29 PM EST 03/25/2024 5:53 PM EST Generic External Data Provider LAB BLOOD ORDERAB LES Final Result Performing Organization Address [facility] Co de Phone Number [facility] [address] [place] [address] [phone] * Lipase (03/25/2024 5:29 PM EST) [facility] Lipase 29 8 - 78 U/L [facility] 03/25/2024 5:29 PM EST 03/25/2024 5:53 PM EST Generic External Data Provider LAB BLOOD ORDERAB LES Final Result Performing Organization Address [facility] de Phone Number [facility] [address] [place] [address] [phone] * (ABNORMAL) Comprehensive Metabolic Panel (03/25/2024 5:29 PM EST) [facility] Sodium 141 135 - 145 mmol/L [facility] Potassium 4.5 3.3 - 5.1 mmol/L [facility] Chloride 108 96 - 108 mmol/L [facility] Carbon Dioxide 28 22 - 29 mmol/L [facility] Anion Gap 10(L) 12 - 20 [facility] Urea Nitrogen (BUN) 16 9 - 16 mg/dL [facility] Creatinine, Serum 0.75 0.5 - 1.4 mg/dL [facility] Creatinine Clr Calc Pharmacy 81.3 [facility] Comment:Provided height and weight: 154.94 cm,76.7 kg.eGFR (calculated from the MDRD study equation) and eCrCl(calculated from the Cockcroft-Gault equation) are based ondifferent parameters and may not yield comparable results.If eCrCl result is absurd, please check patient'sheight/weight. Estimated Glomerular Filt Rate >60 [facility] Comment:Chronic Kidney Disea se: Estimated GFR < 60 mL/min/1.46u4Svovlx Kidney Disease: Estimated GFR < 15 mL/min/1.73m2 Glucose 89 60 - 115 mg/dL [facility] Calcium 9.5 8.4 - 10.2 mg/dL [facility] Bilirubin, Total 0.3 0.0 - 1.0 mg/dL [facility] Aspartate Amino Transferase 39(H) 5 - 31 U/L [facility] Alanine Aminotransferase 51(H) 0 - 31 U/L [facility] Total Protein 7.7 6.5 - 8.0 g/dL [facility] Albumin Level 4.3 3.5 - 5.0 g/dL [facility] Alkaline Phosphatase 68 39 - 117 U/L [facility] 03/25/2024 5:29 PM EST 03/25/2024 5:53 PM EST us Generic External Data Provider LAB BLOOD ORDERAB LES Final Result [facility] [address] [place] [address] [phone] * (ABNORMAL) Basic Metabolic Panel (03/21/2024 4:24 PM EST) Sodium 141 135 - 145 mmol/L [facility] Potassium 4.6 3.3 - 5.1 mmol/L [facility] Chloride 106 96 - 108 mmol/L [facility] Carbon Dioxide 28 22 - 29 mmol/L [facility] Anion Gap 12 12 - 20 [facility] Urea Nitrogen (BUN) 20(H) 9 - 16 mg/dL [facility] Creatinine, Serum 0.78 0.5 - 1.4 mg/dL [facility] Estimated Glomerular Filt Rate >60 [facility] Comment:Chronic Kidney Disea se: Estimated GFR < 60 mL/min/1.25d3Ycpkoi Kidney Disease: Estimated GFR < 15 mL/min/1.73m2 Glucose 124(H) 60 - 115 mg/dL [facility] Calcium 9.7 8.4 - 10.2 mg/dL [facility] 03/21/2024 4:24 PM EST 03/21/2024 4:24 PM EST us Generic External Data Provider LAB BLOOD ORDERAB LES Final Result [facility] [address] [facility] [place] [phone] * BI Mammogram Screening Tomosynthesis Bilateral (03/21/2024 2:15 PM EST) Anatomical Region Laterality Modality Breast Bilateral Mammography 03/21/2024 2:15 PM EST Narrative 03/28/2024 9:29 AM EST ? [facility] ? [address] ?[place] [address] ? Mammography Report ? Signed ? Patient: Ángel LewisMaria C ?MR#: M ?? [id number] ? : 1970 ?Acct:[id number] ? Age/Sex: 53 / F ?ADM Date: 03/21/ ? Loc: HO.MAMMO ? Attending Dr: Angelique Grace DO ? Ordering Physician: Angelique Grace DO ?Results: 1N ?? egative ? Date of Service: 03/21/24 ?Follow Up: 1 Year From Orig ?? inal Mammogram ? Procedure(s): MM tomosynthesis screening BI ?? Accession Number(s): [id number] ? cc: Angelique Grace DO ? EXAMINATION: ?? MM SCREENING DIGITAL BREAST TOMOSYNTHESIS, BILATERAL ? CLINICAL INFORMATION: ? Screening. Asymptomatic. ? COMPARISON: ?? Mammography: Comparison is made with available priors ? TECHNIQUE: ?? Digital breast mammography with tomosynthesis is performed in both the ?? craniocaudal and mediolateral oblique views along with computer-aided ?? detection (CAD). ? FINDINGS: ?? There are scattered areas of fibroglandular density (ACR BI-RADS breast ?? composition Category b). ? There are no significant masses, abnormal calcifications, or other ?? abnormalities. ? MM/MM tomosynthesis screening BI ?? IMPRESSION: ?? No mammographic evidence of malignancy. ? ASSESSMENT: ? BI-RADS BI-RADS 1 - Negative ? RECOMMENDATION: ?? Routine annual mammography screening. ? 1 year F/U ? This examination should not preclude the clinical evaluation of a ?? suspicious palpable abnormality. ? This patient's information was entered into a reminder system with a ?? target due date for their next mammogram. ? Electronically signed by: ??Velia Sorensen DO ??03/28/2024 09:26 AM EST ?? RP ? Dictated By: ?Velia Sorensen DO ? Signed By: ?<Electronically signed by Velia Sorensen, DO in OV> ? 03/28/24 0926 ? DD/ 1415 ? TD/TT: 03/21/24 1442 ? Electrical Automation Engineer: ? Procedure Note Hitesh, Image - 03/28/2024 [facility] [address] [place], [place] [address] Mammography Report Signed Patient: Maria C LewisMR#: M [id number] : 1970Acct:[id number] Age/Sex: 53 / FADM Date: 03/21/24 Loc: HO.MAMMO Attending Dr: Angelique Grace DO Ordering Physician: Angelique Graceults: 1N egative Date of Service: 03/21/24Follow Up: 1 Year From Orig inal Mammogram Procedure(s): MM tomosynthesis screening BI Accession Number(s): [id number] cc: Angelique Grace DO EXAMINATION: MM SCREENING DIGITAL BREAST TOMOSYNTHESIS, BILATERAL CLINICAL INFORMATION: Screening. Asymptomatic. COMPARISON: Mammography: Comparison is made with available priors TECHNIQUE: Digital breast mammography with tomosynthesis is performed in both the craniocaudal and mediolateral oblique views along with computer-aided detection (CAD). FINDINGS: There are scattered areas of fibroglandular density (ACR BI-RADS breast composition Category b). There are no significant masses, abnormal calcifications, or other abnormalities. MM/MM tomosynthesis screening BI IMPRESSION: No mammographic evidence of malignancy. ASSESSMENT: BI-RADS BI-RADS 1 - Negative RECOMMENDATION: Routine annual mammography screening. 1 year F/U This examination should not preclude the clinical evaluation of a suspicious palpable abnormality. This patient's information was entered into a reminder system with a target due date for their next mammogram. Electronically signed by: Velia Sorensen DO 03/28/2024 09:26 AM EST Dictated By: Velia Sorensen DO Signed By: <Electronically signed by Velia Sorensen DO in OV> 03/28/24 0926 DD/ 1415 TD/TT: 03/21/24 1442 Electrical Automation Engineer: Angelique Grace DO IMG BI PROCEDURES Final Resu lt * Hepatitis C Antibody with Reflex to HCV, RNA, Quantitative, Real-Time PCR (01/06/2024 2:02 PM EDT) Hepatitis C Antibody Nonreactive Nonreactive [facility] Comment:Antibodies to HCV no t detected; does not exclude early acuteHCV infection. Blood Venous blood specimen / Unknown 01/06/2024 2:02 PM EDT 01/06/2024 2:02 PM EDT Angelique Ellisangelaelanie LAB BLOOD ORDERABLES Final R esult Performing Organization Address City/[facility]/ZIP Co de Phone Number [facility] [address] [place] [phone] * HIV-1/2 Antigen and Antibodies, Fourth Generation, with Reflexes (01/06/2024 2:02 PM EDT) [facility] HIV AB/AG Nonreactive Nonreactive [facility] Comment:HIV-1 p24 Ag and/or HIV-1/HIV-2 Ab not detected.A test result that is nonreactive does not exclude thepossibility of exposure to or infection with HIV-1 and/orHIV-2. Nonreactive results in this assay for individualswith prior exposure to HIV-1 and/or HIV-2 may be due toantigen and antibody levels that are below the limit ofdetection of this assay.The [employer] HIV Ag/Ab Combo assay result andsupplemental assay results should be interpreted inconjunction with the patient's clinical presentation,history and other laboratory results. If the results areinconsistent with clinical evidence, additional testing issuggested to confirm the result. Blood Venous blood specimen / Unknown 01/06/2024 2:02 PM EDT 01/06/2024 2:02 PM EDT Angelique Ellisolga LAB BLOOD ORDERABLES Final R esult Performing Organization Address City/[facility]/ZIP Co de Phone Number [facility] [address] [place] [address] [phone] * (ABNORMAL) Lipid Panel, Standard (01/06/2024 2:02 PM EDT) [facility] Triglycerides 77 <150 mg/dL [facility] Comment:Desirable Triglyceri de: less than 150 mg/dLBorderline High Triglyceride 150-199 mg/dLHigh Triglyceride: 200-499 mg/dLVery High Triglyceride: greater than or equal to 5OO mg/dL Cholesterol 176 <200 mg/dL [facility] Comment:Desirable Cholestero l: less than 200 mg/dLBorderline High Cholesterol: 200-239 mg/dLHigh Cholesterol: greater than 239 mg/dL LDL Cholesterol Calculated 101(H) <100 mg/dL [facility] Comment:Desirable LDL: less than 100 mg/dLNear Optimal/Above Optimal LDL: 110- 129 mg/dLBorderline High LDL: 130-159 mg/dLHigh LDL: 160-189 mg/dLVery High LDL: greater than or equal to 190 mg/dL HDL Cholesterol 60 >40 mg/dL [facility] Comment:Desirable HDL: great er than 40 mg/dL Note: This HDL assay may give artificially low results in patients with liver disease. Blood Venous blood specimen / Unknown 01/06/2024 2:02 PM EDT 01/06/2024 2:02 PM EDT us Angelique Grace DO LAB BLOOD ORDERABLES Final R esult [facility] [address] [place] [phone] * Albumin, Random Urine W/Creatinine (01/06/2024 1:54 PM EDT) Creatinine, Urine 130.38 mg/dL [facility] Microalbumin Urine 24.0 mg/L [facility] Microalbum Creatinine Ratio Ur 18.4 <30 ug/mg cr [facility] Comment:Albumin/Creatinine R atio Reference Ranges: Normal: < 30 ug/mg creatinine Microalbuminuria: 30 - 300 ug/mg creatinineClinical Albuminuria: > 300 ug/mg creatinine Urine (Urine, Random) 01/06/2024 1:54 PM EDT 01/06/2024 2:50 PM EDT Angelique Grace DO LAB URINE ORDERABLES Final R esult [facility] [address] [place] [address] [phone] * Hm Pap Smear (04/02/2022) Pap Negative for intraephithelial lesion or malignancy Negative for intraephithelial lesion or malignancy, Other HPV Undetected Undetected, Indeterminate, Quantitative, Not Detected Historical Provider MD HEALTH MAINTENANCE Final Result from Last 3 Months or Most Recently Relevant to Health Maintenance Insurance [facility] C3 Care Teams Radiology Physician Assistant Relationship Specialty Start Date End Date Angelique Grace DO [address] [place] [address] PCP - General Family Medicine 03/14/18 Yu Busby PharmD [address] [place] [address] Pharmacist Internal Medicine 11/03/22
--- OUTSIDE RECORDS SUMMARY | 2024-05-08 11:31 | XMS_ITS | Encounter Summary ---
Author Organization [employer] Address 75 [facility] 7t [place] [address] Care Team Providers Care Fishing Tackle Repairer Name Role Phone CalebAngelique espinoza Primary Care Provider +1- [phone] Yu Busby PharmD Unavailable [phone] Reason for Visit * Reason Comments Med Refill Encounter Details Date Type Department Care Team (Late st Contact Info) Description 04/14/2024 Refill [facility] [address] [place] [address] Yu Busby, PharmD [address] [place] [address] Type 2 diabetes mellitus without complication, with long-term current use of insulin ([facility]) Social History Tobacco Use Types Packs/Day Years [...] 10:30 AM EST Office Visit [facility] [address] [place] [address] Tommy Chance MD [address] [place] [address] 05/29/2024 2:00 PM EDT Medication Management [facility] [address] [place] [address] Yu Busby, PharmD [address] [place] [address] documented as of this encounter Goals Goal [...] complication, with long-term current use of insulin ([facility]) documented in this encounter Additional Health Concerns Assessment Noted Time PHQ-9 Depression Total Score: 0 06/09/19 23 11:27 AM EDT documented as of this encounter Care Teams Fishing Tackle Repairer Relationship Specialty Start Date End Date Angelique Grace DO [address] [place] [address] PCP - General Family Medicine 03/14/18 Yu Busby PharmD [address] [place] [address] Pharmacist Internal Medicine 11/03/22 documented as of this encounter
--- OUTSIDE RECORDS SUMMARY | 2024-05-08 11:31 | XMS_ITS | Encounter Summary ---
Author Organization [employer] Address 75 [facility] 7t [place] [address] Care Team Providers Care Vending Machine Coin Collector Name Role Phone Angelique Grace DO Primary Care Provider [phone]- [phone] Yu Busby PharmD Unavailable [phone] Reason for Visit * Reason Onset Date Comments Med Refill 04/26/2024 Encounter Details Date Type Department Care Team (Late st Contact Info) Description 04/26/2024 Refill [facility] [address] [place] [address] Angelique Grace DO [address] [place] [address] Chronic right-sided low back pain without sciatica (Primary Dx) Social History Tobacco Use Types [...] Telephone Encounter - Kerri Burt - 04/26/2024 4:15 PM EST TC from pt requesting medication refill. Medications needing refill : oxyCODONE (Roxicodone) 5 MG immediate release tablet To be sent to: [facility] [address] [phone] [facility] documented in this encounter Plan of Treatment Upcoming Encounters Date Type Department Care Team (Late st Contact Info) Description 05/18/2024 10:30 AM EST Office Visit [facility] [address] [place] [address] Tommy Chance MD [address] [place] [address] 05/29/2024 2:00 PM EDT Medication Management [facility] [address] [place] [address] Yu Busby, Radha [address] [place] [address] documented as of this encounter Goals Goal [...] documented as of this encounter Care Teams Vending Machine Coin Collector Relationship Specialty Start Date End Date Angelique Grace DO [address] [place] [address] PCP - General Family Medicine 03/14/18 Yu Busby PharmD [address] [place] [address] Pharmacist Internal Medicine 11/03/22 documented as of this encounter
--- OUTSIDE RECORDS SUMMARY | 2024-05-08 11:32 | XMS_ITS | Encounter Summary ---
Author Organization [employer] Address 75 [facility] 7t [place] [address] Care Team Providers Care Innersole Fitter Name Role Phone Angelique Grace DO Primary Care Provider [phone]- [phone] Yu Busby PharmD Unavailable [phone] Reason for Visit * Reason Onset Date Comments Medication Question 03/23/2024 Encounter Details Date Type Department Care Team (Late st Contact Info) Description 03/23/2024 Telephone [facility] [address] [place] [address] Angelique Grace DO [address] [place] [address] Medication Question Social History Tobacco Use Types [...] Miscellaneous Notes * Telephone Encounter - Angelique Grace DO - 04/22/2024 10:29 PM EST RN notes reviewed. Will d/w pt at upcoming visit. * Telephone Encounter - Alie Eaton RN - 03/23/2024 3:22 PM EST Pt returning telephone call, spoke with [facility] director of physical security #[id number]. Patient asking for Vitamin E and Vitamin B12 supplements as part of her daily regimen. Old Vitamin E prescription on file, . Advised her message would be sent to PCP. Pt then asked to send message to PCP regarding hair loss x2 years. Per chart, pt has previously discussed hair loss with Dr Grace and with tree fruit and nut crops farmer (endo appt was on 03/22/24). Pt was advised by [place] to do labwork next week and has follow up appt with in 2 weeks. Advised pt that message can be sent to PCP to comment on any other updates to plan of care regarding hair loss and vitamin requests. Pt verbalized understanding, in agreement with plan. * Telephone Encounter - Alie Eaton RN - 03/23/2024 2:44 PM EST Telephone call returned to pt regarding below request, no answer, left voicemail to contact [facility]. Pthad Vit E script in 2021 and no active B12 script on file. Patient to call clinic PRN. * Telephone Encounter - Mily Lal - 03/23/2024 1:57 PM EST Tc from pt requesting script for Vitamin E and vitamin B-12. documented in this encounter Plan of Treatment Upcoming Encounters Date Type Department Care Team ([facility] st Contact Info) Description 05/18/2024 10:30 AM EST Office Visit [facility] [address] [place] [address] Tommy Chance MD [address] [place] [address] 05/29/2024 2:00 PM EDT Medication Management [facility] [address] [place] [address] PuiaYu, PharmD [address] [place] [address] documented as of this encounter Goals Goal Patient Goal Type Associated Problems Recent Progress Patient-Stated? Author Smoking cessation General No Puia, Yu, PharmD Hemoglobin A1c < 7 Result Component 7.3( 2:54 PM EST) No Castillo Pradhan PharmD Record your blood sugar as directed Result Component No Puia Yu, PharmD documented as of this encounter Visit Diagnoses Not on filedocumented in this encounter Additional Health Concerns Assessment Noted Time PHQ-9 Depression Total Score: 0 06/09/19 23 11:27 AM EDT documented as of this encounter Care Teams Innersole Fitter Relationship Specialty Start Date End Date Angelique Grace DO [address] [place] [address] PCP - General Family Medicine 03/14/18 Yu Busby PharmD [address] [place] [address] Pharmacist Internal Medicine 11/03/22 documented as of this encounter
--- OUTSIDE RECORDS SUMMARY | 2024-05-08 11:32 | XMS_ITS | Encounter Summary ---
Author Organization [employer] [facility] Address [address] [place] [address] 7t [place] [address] Care Team Providers Care Fibreglass Lay Up Worker Name Role Phone Angelique Grace DO Primary Care Provider Castillo Pradhan PharmD Unavailable Unavail able Yu Busby PharmD Unavailable Encounter Details Date Type Department Care Team (Late st Contact Info) Description 02/23/2022 Orders Only [facility] [address] [place] [address] Angelique Grace DO [address] [place] [address] Social History Tobacco Use Types Packs/Day Years Used Date Smoking Tobacco: Never Assessed Comments Unknown Sex and Gender Information Value [...] 05/18/2024 10:30 AM EST Office Visit [facility] [address] [place] [address] Tommy Chance MD [address] [place] [address] 05/29/2024 2:00 PM EDT Medication Management [facility] [address] [place] [address] Yu Busby PharmD [address] [place] [address] documented as of this encounter Visit Diagnoses Not on filedocumented in this encounter Care Teams Fibreglass Lay Up Worker Relationship Specialty Start Date End Date Angelique Grace DO [address] [place] [address] PCP - General Family Medicine 03/14/18 Castillo Pradhan PharmD [address] [place] [address] Pharmacist Internal Medicine 07/22/22 11/02/22 Yu Busby PharmD [address] [place] [address] Pharmacist Internal Medicine 11/03/22 documented as of this encounter
--- OUTSIDE RECORDS SUMMARY | 2024-05-08 11:32 | XMS_ITS | Encounter Summary ---
Author Organization [employer] Address [address] [facility] [address] 7t [place] [address] Care Team Providers Care Animal Treatment Investigator Name Role Phone Angelique Grace DO Primary Care Provider [phone]- [phone] Yu Busby PharmD Unavailable [phone] Reason for Visit * Reason Onset Date Comments Call Back Request 03/23/2023 Encounter Details Date Type Department Care Team ([facility] st Contact Info) Description 03/23/2023 Telephone [facility] [address] [place] [address] Angelique Grace DO [address] [place] [address] Call Back Request Social History Tobacco Use Types Packs/Day Years [...] encounter Miscellaneous Notes * Telephone Encounter - Codie Thompson - 03/23/2023 3:09 PM EST Tc from pt requesting a call back in regards pregabalin [place], film writer advise pt about the status on chart but pt still want a call from a nurse. documented in this encounter Plan of Treatment Upcoming Encounters Date Type Department Care Team (Late st Contact Info) Description 05/18/2024 10:30 AM EST Office Visit [facility] [address] [place] [address] Tommy Chance MD [address] [place] [address] 05/29/2024 2:00 PM EDT Medication Management [facility] [address] [place] [address] Yu Busby, PharmD [address] [place] [address] documented as of this encounter Goals Goal [...] documented as of this encounter Care Teams Animal Treatment Investigator Relationship Specialty Start Date End Date Angelique Grace DO [address] [place] [address] PCP - General Family Medicine 03/14/18 Yu Busby PharmD [address] [place] [address] Pharmacist Internal Medicine 11/03/22 documented as of this encounter
--- OUTSIDE RECORDS SUMMARY | 2024-05-08 11:32 | XMS_ITS | Encounter Summary ---
Author Organization [employer] Address [address] [facility] 7t [place] [address] Care Team Providers Care [employer] Hazmat Tanker Driver Name Role Phone SanjayAngelique Primary Care Provider DelCastillo clements PharmD Unavailable Unavail able Yu Busby PharmD Unavailable [phone] Encounter Details Date Type Department Care Team (Late st Contact Info) Description 03/02/2022 Orders Only [facility] [address] [place] [address] Angelique Soler LPN Social History Tobacco Use Types Packs/Day Years [...] Description 05/18/2024 10:30 AM EST Office Visit [facility] MEDICINE [address] [place] [address] Tommy Chance MD [address] [place] [address] [phone] 05/29/2024 2:00 PM EDT Medication Management [facility] [address] [place] [address] Yu Busby, PharmD [address] [place] [address] documented as of this encounter Visit Diagnoses Not on filedocumented in this encounter Care Teams [employer] Hazmat Tanker Driver Relationship Specialty Start Date End Date Angelique Grace DO [address] [place] [address] PCP - General Family Medicine 03/14/18 Castillo Pradhan, PharmD [address] [place] [address] Pharmacist Internal Medicine 07/22/22 11/02/22 Yu Busby PharmD [address] [place] [address] Pharmacist Internal Medicine 11/03/22 documented as of this encounter
--- OUTSIDE RECORDS SUMMARY | 2024-05-08 11:32 | XMS_ITS | Encounter Summary ---
Author Organization [employer] Address [address] [facility] 7t [place] [address] Care Team Providers Care Ic Design Manager Name Role Phone Angelique Grace DO Primary Care Provider [phone] Yu Busby PharmD Unavailable [phone] Reason for Visit * Reason Onset Date Comments Durable Medical Equipment 03/03/2023 Encounter Details Date Type Department Care Team (Late st Contact Info) Description 03/03/2023 Telephone [facility] [address] [place] [address] Angelique Grace DO [address] [place] [address] Durable Medical Equipment Social History Tobacco Use [...] encounter Miscellaneous Notes * Telephone Encounter - Camryn Velazquez - 03/17/2023 4:15 PM EST Orders have been generated and placed on provider desk for review and signature. * Telephone Encounter - Rosio Diaz - 03/03/2023 11:06 AM EST Tc from pt requesting status on DME supplies requested on 02/28/2023 with provider. Which were: [employer]ut Pillow [employer]ane [employer] Patches Please contact pt @ [phone] documented in this encounter Plan of Treatment Upcoming Encounters Date Type Department Care Team (Late st Contact Info) Description 05/18/2024 10:30 AM EST Office Visit [facility] [address] [place] [address] Tommy Chance MD [address] [place] [address] 05/29/2024 2:00 PM EDT Medication Management [facility] [address] [place] [address] Yu Busby PharmD [address] [place] [address] documented as of this encounter Goals Goal [...] documented as of this encounter Care Teams Ic Design Manager Relationship Specialty Start Date End Date Angelique Grace DO [address] [place] [address] PCP - General Family Medicine 03/14/18 Yu Busby PharmD [address] [place] [address] Pharmacist Internal Medicine 11/03/22 documented as of this encounter
--- OUTSIDE RECORDS SUMMARY | 2024-05-08 11:32 | XMS_ITS | Encounter Summary ---
Author Organization [employer] [facility] Address [address] [employer] [employer] 7t [place] [address] Care Team Providers Care Family Life Educator Name Role Phone Angelique Grace DO Primary Care Provider Castillo Pradhan PharmD Unavailable Unavail able Yu Busby PharmD Unavailable [phone] Reason for Visit * Reason Onset Date Comments Call requesting 05/26/2022 Encounter Details Date Type Department Care Team (Late st Contact Info) Description 05/26/2022 Telephone [facility] [address] [place] [address] Angelique Grace DO [address] [place], [place] [phone] Call requesting Social History Tobacco Use Types Packs/Day Years Used Date Smoking Tobacco: Some Days Cigarettes Passive Smoke Exposure: Current Smokeless Tobacco: Never Alcohol Use Standard Drinks/Week Comments Never 0 (1 standard drink = 0.6 oz pur e alcohol) Comments Unknown Sex and Gender Information Value Date Recorded Sex Assigned at Female 01/11/2022 10:15 AM EDT Legal Sex Female 10:15 AM EDT Gender Identity Female 01/11/2022 10:15 AM EDT Sexual Orientation Straight 01/11/2022 10 :15 AM EDT documented as of this encounter Miscellaneous Notes * Telephone Encounter - Ni Gil RN - 05/26/2022 12:36 PM EDT Noted in referral entry that referral was closed due to no Master IM on 05/06/22. Office visit for which neurosurgery referral was related to was completed on 01/13/22, can this Master IM be used so pt. Can mining machinery assembler her appt? * Telephone Encounter - Rosio Diaz - 05/26/2022 11:05 AM EDT Tc from pt requesting a call from the nurses pt claims that in order to get an appt at [facility]([phone]), nurse has to call make appt because facility is requiring some information in order to schedule appt. Please contact pt at [phone] documented in this encounter Plan of Treatment Upcoming Encounters Date Type Department Care Team (Late st Contact Info) Description 05/18/2024 10:30 AM EST Office Visit [facility] [address] [place] [address] Tommy Chance MD [address] [place] [address] 05/29/2024 2:00 PM EDT Medication Management [facility] [address] [place] [address] Yu Busby PharmD [address] [place] [address] documented as of this encounter Visit Diagnoses Not on filedocumented in this encounter Care Teams Family Life Educator Relationship Specialty Start Date End Date Angelique Grace DO [address] [place] [address] PCP - General Family Medicine 03/14/18 Castillo Pradhan PharmD [address] [place] [address] Pharmacist Internal Medicine 07/22/22 11/02/22 Yu Busby PharmD [address] [place] [address] Pharmacist Internal Medicine 11/03/22 documented as of this encounter
--- OUTSIDE RECORDS SUMMARY | 2024-05-08 11:32 | XMS_ITS | Encounter Summary ---
Author Organization [employer] Address 75 [facility] 7t [place] [address] Care Team Providers Care Lecturer Of Portuguese Name Role Phone Angelique Grace DO Primary Care Provider [phone] Yu Busby PharmD Unavailable [phone] Reason for Visit * Reason Onset Date Comments Accomodation Letter 08/23/2023 Encounter Details Date Type Department Care Team ([facility] st Contact Info) Description 08/23/2023 Telephone [facility] [address] [place] [address] Angelique Grace DO [address] [place] [address] Accomodation Letter Social History Tobacco Use Types Packs/Day Years [...] Telephone Encounter - Ni Gil RN - 08/30/2023 1:15 PM EDT TC returned to pt., pt. Reports on same day of appt. (06/06), she went down to [facility] and signed paperwork to request letter for housing. Pt. Is inquiring on status * Telephone Encounter - Steve Trevino - 08/30/2023 11:49 AM EDT Tc from patient calling in regards to the message below * Telephone Encounter - Ni Gil RN - 08/23/2023 4:29 PM EDT Per PCP OV 06/07/23 She wants a letter for her landlord because there is nothing to hold onto when she leaves her building and she wants a railing placed. She feels she woudn't have fallen if she had something to hold onto. TC placed to pt. To determine if pt. Went to [facility] dept. To sign release of info for landlord and request letter, no answer, left VM requesting call back to Red Team RN upon receipt of message. Sending message to forms dept. In case pt. Has already done so and process is already started * Telephone Encounter - Carlos Velazquez - 08/23/2023 4:00 PM EDT Tc from pt requesting status on accommodations letter. Back in June pt submitted a letter for pcp to sign but hasn't heard anything back, Pt was transferred from [facility] in which technical proposal writer contact [facility] for clarification. They informed technical proposal writer pt was advised to leave message with providers team. If any questions please contact pt at [phone]. documented in this encounter Plan of Treatment Upcoming Encounters Date Type Department Care Team (Late st Contact Info) Description 05/18/2024 10:30 AM EST Office Visit [facility] [address] [place] [address] Tommy Chance MD [address] [place] [address] 05/29/2024 2:00 PM EDT Medication Management [facility] [address] [place] [phone] Puia, Yu, PharmD [address] [place] [address] documented as of this encounter Goals Goal Patient Goal Type Associated Problems Recent Progress Patient-Stated? Author Smoking cessation General No Puia, Yu, PharmD Hemoglobin A1c < 7 Result Component 7.3( 2:54 PM EST) No DellogonoCastillo, PharmD Record your blood sugar as directed Result Component No Puia, Yu, PharmD documented as of this encounter Visit Diagnoses Not on filedocumented in this encounter Additional Health Concerns Assessment Noted Time PHQ-9 Depression Total Score: 0 06/09/19 23 11:27 AM EDT documented as of this encounter Care Teams Lecturer Of Portuguese Relationship Specialty Start Date End Date Angelique Grace DO [address] [place] [address] PCP - General Family Medicine 03/14/18 Yu Busby, PharmD [address] [place] [address] Pharmacist Internal Medicine 11/03/22 documented as of this encounter
--- OUTSIDE RECORDS SUMMARY | 2024-05-08 11:32 | XMS_ITS | Encounter Summary ---
Author Organization [employer] Address 75 [facility] 7t [place] [address] Care Team Providers Care Fruit And Vegetable Packer Name Role Phone Angelique Grace DO Primary Care Provider +1 [phone] Yu Busby PharmD Unavailable [phone] Encounter Details Date Type Department Care Team (Late st Contact Info) Description 05/12/2023 Orders Only [facility] [address] [place], [place] [phone] ProviderKhadar MD Social History Tobacco Use Types Packs/Day Years [...] Description 05/18/2024 10:30 AM EST Office Visit [facility] MEDICINE [address] [place] [address] Tommy Chance MD [address] [place] [address] 05/29/2024 2:00 PM EDT Medication Management [facility] MEDICINE [address] [place] [address] Yu Busby, PharmD [address] [place] [address] documented as of this encounter Goals Goal Patient Goal Type Associated Problems Recent Progress Patient-Stated? Author Smoking cessation General No Yu Busby, PharmD Hemoglobin A1c < 7 Result Component 7.3( 2:54 PM EST) No Castillo Pradhan, PharmD Record your blood sugar as directed Result Component No Yu Busby PharmD documented as of this encounter Procedures Procedure Name Priority Date/Time Associated Diagnosis Comments HM PAP/HPV Routine 09/11/2020 9:52 AM EDT documented in this encounter Results * HM PAP/HPV (09/11/2020 9:52 AM EDT) us Historical Provider HEALTH MAINTENANCE Final Result documented in this encounter Visit Diagnoses Not on filedocumented in this encounter Additional Health Concerns Assessment Noted Time PHQ-9 Depression Total Score: 0 06/09/19 23 11:27 AM EDT documented as of this encounter Care Teams Fruit And Vegetable Packer Relationship Specialty Start Date End Date Angelique Grace DO 230 [place] [address] PCP - General Family Medicine 03/14/18 Yu Busby, Radha 230 [place] [address] Pharmacist Internal Medicine 11/03/22 documented as of this encounter
--- OUTSIDE RECORDS SUMMARY | 2024-05-08 11:32 | XMS_ITS | Encounter Summary ---
Author Organization [email or web address] [facility] Address 75 [facility] 7t [place] [address] Care Team Providers Care Supervisor Garage Name Role Phone Angelique Grace DO Primary Care Provider +1 [phone] DelCastillo clements PharmD Unavailable Unavail able Yu Busby PharmD Unavailable Reason for Visit * Reason Comments Med Refill Encounter Details Date Type Department Care Team (Late st Contact Info) Description 06/02/2022 Refill [facility] 230 [place], [place] [phone] Yulisa Cedillo MD [address] [place], [place] [phone] Primary hypertension Social History Tobacco Use Types [...] Description 05/18/2024 10:30 AM EST Office Visit [facility] [address] [place], [place] [phone] Tommy Chance MD [address] [place], [place] [phone] 05/29/2024 2:00 PM EDT Medication Management [facility] [address] [place] [address] Yu Busby PharmD 230 [place] [address] documented as of this encounter Visit Diagnoses Diagnosis Primary hypertension Unspecified essential hypertension documented in this encounter Care Teams Supervisor Garage Relationship Specialty Start Date End Date Angelique Grace DO [address] [place] [address] PCP - General Family Medicine 03/14/18 Castillo Pradhan, ChristieD [address] [place] [address] Pharmacist Internal Medicine 07/22/22 11/02/22 Yu Busby PharmD [address] [place] [address] Pharmacist Internal Medicine 11/03/22 documented as of this encounter
--- OUTSIDE RECORDS SUMMARY | 2024-05-08 11:32 | XMS_ITS | Encounter Summary ---
Author Organization [employer] Address [address] [facility] [address] 7t [place] [address] Care Team Providers Care Innersole Maker Name Role Phone Angelique Grace DO Primary Care Provider + [phone] Castillo Pradhan PharmD Unavailable Unavail able Yu Busby PharmD Unavailable [phone] Reason for Visit * Reason Comments Med Refill Encounter Details Date Type Department Care Team (Late st Contact Info) Description 05/21/2022 Refill [facility] 230 [place] [address] Brent Garvin FNP Degeneration of lumbar intervertebral disc Social History Tobacco Use Types Packs/Day Years [...] Telephone Encounter - Angelique Soler LPN - 05/21/2022 11:35 AM EST Medication was sent to [facility] on 05/10/22. Qty: 60 with 2 refills. * Telephone Encounter - Aleida Celis - 05/21/2022 11:23 AM EST Tc from patient requesting a med refill on medication Mapap Arthritis Pain 650 MG ER tablet. Upcoming appt on 06/08/[address] Grace documented in this encounter Plan of Treatment Upcoming Encounters Date Type Department Care Team (Late st Contact Info) Description 05/18/2024 10:30 AM EST Office Visit [address] [address] Tommy Chance MD 230 [place] [address] 05/29/2024 2:00 PM EDT Medication Management [address] [address] Yu Busby PharmD [address] [place] [address] documented as of this encounter Visit Diagnoses Diagnosis Degeneration of lumbar intervertebral disc Degeneration of lumbar or lumbosacral intervertebral disc documented in this encounter Care Teams Innersole Maker Relationship Specialty Start Date End Date Angelique Grace DO [address] [place] [address] PCP - General Family Medicine 03/14/18 Castillo Pradhan PharmD [address] [place] [address] Pharmacist Internal Medicine 07/22/22 11/02/22 Yu Busby, PharmD [address] [place] [address] Pharmacist Internal Medicine 11/03/22 documented as of this encounter
--- OUTSIDE RECORDS SUMMARY | 2024-05-08 11:32 | XMS_ITS | Encounter Summary ---
Author Organization [email or web address] Address 75 [facility] 7t [place] [address] Care Team Providers Care Human Performance Consultant Name Role Phone SanjayAngelique Primary Care Provider [phone] [phone] Yu Busby PharmD Unavailable [phone] Reason for Visit * Reason Comments Med Refill Encounter Details Date Type Department Care Team (Late st Contact Info) Description 06/01/2023 Refill [facility] 230 [place] [address] Yulisa Cedillo MD 230 [place] [address] Primary hypertension Social History Tobacco Use Types [...] Description 05/18/2024 10:30 AM EST Office Visit [facility] [address] [place] [address] Tommy Chance MD [address] [place] [address] 05/29/2024 2:00 PM EDT Medication Management [facility] [address] [place] [address] PuiaDarrynYu, PharmD [address] [place] [address] documented as of this encounter Goals Goal [...] documented as of this encounter Care Teams Human Performance Consultant Relationship Specialty Start Date End Date Angelique Grace DO [address] [place] [address] PCP - General Family Medicine 03/14/18 Yu Busby, PharmD [address] [place] [address] Pharmacist Internal Medicine 11/03/22 documented as of this encounter
--- OUTSIDE RECORDS SUMMARY | 2024-05-08 11:32 | XMS_ITS | Encounter Summary ---
Author Organization [employer] Address 75 [facility] 7t [place] [address] Care Team Providers Care Bottle Hop Name Role Phone Angelique Grace DO Primary Care Provider [phone]- [phone] Yu Busby PharmD Unavailable [phone] Reason for Visit * Reason Onset Date Comments Referral 07/19/2023 Encounter Details Date Type Department Care Team ([facility] st Contact Info) Description 07/19/2023 Telephone [facility] MED[facility]INE 230 [place] [address] Angelique Grace DO 230 [place] [address] Referral Social History Tobacco Use Types Packs/Day Years [...] encounter Miscellaneous Notes * Telephone Encounter - Carlos Velazquez - 07/19/2023 3:01 PM EDT Tc from pt requesting status on referral for plastic surgery. Please contact pt at [phone]. documented in this encounter Plan of Treatment Upcoming Encounters Date Type Department Care Team (Late st Contact Info) Description 05/18/2024 10:30 AM EST Office Visit [facility] MEDICINE [address] [place] [address] Tommy Chance MD [address] [place] [address] 05/29/2024 2:00 PM EDT Medication Management [facility] [address] [place] [address] Yu Busby, PharmD [address] [place] [address] documented as of this encounter Goals Goal [...] documented as of this encounter Care Teams Bottle Hop Relationship Specialty Start Date End Date Angelique Grace DO 230 [place] [address] PCP - General Family Medicine 03/14/18 Yu Busby PharmD 230 [place] [address] Pharmacist Internal Medicine 11/03/22 documented as of this encounter
--- OUTSIDE RECORDS SUMMARY | 2024-05-08 11:32 | XMS_ITS | Encounter Summary ---
Author Organization [employer] Address 75 [facility] 7t [place] [address] Care Team Providers Care Front End Engineer Name Role Phone Angelique Grace DO Primary Care Provider +1- [phone] Yu Busby PharmD Unavailable [phone] Reason for Visit * Reason Comments Med Refill Encounter Details Date Type Department Care Team (Late st Contact Info) Description 07/09/2023 Refill [facility]INE 230 [place] [address] Angelique Grace DO 230 [place] [address] Type 2 diabetes mellitus without complication, with long-term current use of insulin ([facility]) Social History Tobacco Use Types [...] Upcoming Encounters Date Type Department Care Team ([facility] st Contact Info) Description 05/18/2024 10:30 AM EST Office Visit [facility] MEDICINE [address] [place] [address] Tommy Chance MD [address] [place] [address] 05/29/2024 2:00 PM EDT Medication Management [facility] MED[facility]INE [address] [place] [address] Yu Busby, PharmD [address] [place] [address] documented as of this encounter Goals Goal [...] complication, with long-term current use of insulin ([facility]) documented in this encounter Additional Health Concerns Assessment Noted Time PHQ-9 Depression Total Score: 0 06/09/19 23 11:27 AM EDT documented as of this encounter Care Teams Front End Engineer Relationship Specialty Start Date End Date Angelique Grace DO 230 [place] [address] PCP - General Family Medicine 03/14/18 Yu Busby PharmD [address] [place] [address] Pharmacist Internal Medicine 11/03/22 documented as of this encounter
--- OUTSIDE RECORDS SUMMARY | 2024-05-08 11:32 | XMS_ITS | Encounter Summary ---
Author Organization [employer] Address 75 [facility] 7t [place] [address] Care Team Providers Care Kier Hand Name Role Phone Angelique Grace DO Primary Care Provider +1- [phone] Yu Busby PharmD Unavailable [phone] Encounter Details Date Type Department Care Team ([facility] st Contact Info) Description 08/10/2023 Telephone [facility]INE 230 [place] [address] Angelique Grace DO 230 [place] [address] Social History Tobacco Use Types Packs/Day Years [...] Description 05/18/2024 10:30 AM EST Office Visit [facility] MEDICINE [address] [place] [address] Tommy Chance MD [address] [place] [address] 05/29/2024 2:00 PM EDT Medication Management [facility] MED[facility]INE [address] [place] [address] Puia, Yu, PharmD [address] [place] [address] documented as of this encounter Goals Goal [...] documented as of this encounter Care Teams Kier Hand Relationship Specialty Start Date End Date Angelique Grace DO [address] [place] [address] PCP - General Family Medicine 03/14/18 Puia, Yu, PharmD 230 [place] [address] Pharmacist Internal Medicine 11/03/22 documented as of this encounter
--- OUTSIDE RECORDS SUMMARY | 2024-05-08 11:32 | XMS_ITS | Encounter Summary ---
Author Organization [employer] Address 75 [facility] 7t [place] [address] Care Team Providers Care Slitter Helper Name Role Phone Angelique Grace DO Primary Care Provider +1- [phone] Yu Busby PharmD Unavailable [phone] Reason for Visit * Reason Onset Date Comments Nurse Triage 09/08/2023 Encounter Details Date Type Department Care Team (Late st Contact Info) Description 09/08/2023 Telephone [facility]INE 230 [place] [address] Angelique Grace DO 230 [place] [address] Nurse Triage Social History Tobacco Use Types [...] encounter Miscellaneous Notes * Telephone Encounter - Ioana TristenANNALISA rivera - 09/08/2023 3:58 PM EDT Triage call returned to patient with concerns of blurred vision. patient reports that she obtained new glasses in the last several months with an eye exam within the last year. ( no date noted) patient with blurry vision no floaters of loss of vision in either eye. Wears glasses. Patient read in Tresiba med pamphlet that blurry vision may be side effect of this medication. Patient has been on Tresiba for some time. Patient without dizziness or fainting. Patient is unable to provide recent home BG readings at time of call. Patient wants to discuss DM med regime with PCP and adjust as needed. Patient also again requesting that letter be provided for handrail installation at her apartment due to fall last Spring and injury.Stairs are hard to navigate with no handrail per patient. Dispositionreviewed and patient in agreement with plan. ASK/Garima DO 09/16/23 12 noon. Team tasked to followwith previous request for PCP letter. Multiple (2) protocols were used on this call. Disposition for Call: Callback or Video Visit by PCP Today Protocol Used: Medication Question Call (Adult) Protocol-Based Disposition: Callback or Video Visit by PCP Today Video visit not offered Positive Triage Questions: * Caller has NON-URGENT medicine question about med that PCP or specialist prescribed and triager unable to answer question * Caller wants to use a complementary or alternative medicine * All higher-acuity triage questions were negative Protocol Used: Vision Loss or Change (Adult) Protocol-Based Disposition: See in Office or Video Visit within 2 Weeks Video visit offer not recorded Positive Triage Question: * Blurred vision or visual changes and gradual onset (e.g., weeks, months) * All higher-acuity triage questions were negative * Telephone Encounter - Grace Fair - 09/08/2023 3:21 PM EDT Symptom: Vision Loss or Change Outcome: Schedule an urgent appointment (within 1 hour) or talk to a nurse or provider soon Reason: Getting worse, states caused by insulin degludec (Tresiba FlexTouch) 100 UNIT/ML injection The caller accepted this outcome Please contact pt at [phone] (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) documented in this encounter Plan of Treatment Upcoming Encounters Date Type Department Care Team (Late st Contact Info) Description 05/18/2024 10:30 AM EST Office Visit [facility] MEDICINE [address] [place] [address] Tommy Chance MD [address] [place] [address] 05/29/2024 2:00 PM EDT Medication Management [facility] MEDICINE [address] [place] [address] PuiaYu, PharmD [address] [place] [address] documented as of this encounter Goals Goal Patient Goal Type Associated Problems Recent Progress Patient-Stated? Author Smoking cessation General No Yu Busby, PharmD Hemoglobin A1c < 7 Result Component 7.3( 2:54 PM EST) No Castillo Pradhan, PharmYusef Record your blood sugar as directed Result Component No Puia, Yu, PharmD documented as of this encounter Visit Diagnoses Not on filedocumented in this encounter Additional Health Concerns Assessment Noted Time PHQ-9 Depression Total Score: 0 06/09/19 23 11:27 AM EDT documented as of this encounter Care Teams Slitter Helper Relationship Specialty Start Date End Date Angelique Grace DO [address] [place] [address] PCP - General Family Medicine 03/14/18 Yu Busby, PharmD [address] [place] [address] Pharmacist Internal Medicine 11/03/22 documented as of this encounter
--- OUTSIDE RECORDS SUMMARY | 2024-05-08 11:32 | XMS_ITS | Encounter Summary ---
Author Organization [employer] Address 75 [facility] 7t [place] [address] Care Team Providers Care Knot Cutter Name Role Phone Angelique Grace DO Primary Care Provider +1- [phone] Yu Busby PharmD Unavailable [phone] Encounter Details Date Type Department Care Team (Late st Contact Info) Description [address] [facility] MEDICINE 230 [place] [address] Angelique Grace DO 230 [place] [address] Social History Tobacco Use Types Packs/Day Years [...] Description 05/18/2024 10:30 AM EST Office Visit [facility] MEDICINE [address] [place] [address] Tommy Chance MD [address] [place] [address] 05/29/2024 2:00 PM EDT Medication Management [facility] MEDICINE [address] [place] [address] Puia, Yu, PharmD [address] [place] [address] documented as of this encounter Goals Goal [...] documented as of this encounter Care Teams Knot Cutter Relationship Specialty Start Date End Date Angelique Grace DO [address] [place] [address] PCP - General Family Medicine 03/14/18 Puia, Yu, PharmD 230 [place] [address] Pharmacist Internal Medicine 11/03/22 documented as of this encounter
--- OUTSIDE RECORDS SUMMARY | 2024-05-08 11:32 | XMS_ITS | Encounter Summary ---
Author Organization [employer] Address [address] [facility] 7t [place] [address] Care Team Providers Care Rental Sales Associate Name Role Phone Angelique Grace DO Primary Care Provider +1- [phone] Yu Busby PharmD Unavailable [phone] Reason for Visit * Reason Onset Date Comments Referral 08/30/2023 Encounter Details Date Type Department Care Team ([facility] st Contact Info) Description 08/30/2023 Telephone [facility]INE 230 [place] [address] Angelique Grace DO [address] [place] [address] Referral Social History Tobacco Use Types Packs/Day Years Used Date Smoking Tobacco: Some Days Cigarettes Passive Smoke Exposure: Current Smokeless Tobacco: Never Alcohol Use Standard Drinks/Week Comments Never 0 (1 standard drink = 0.6 oz pur e alcohol) Depression Answer Date Recorded Patient Health Questionnaire-9 Score 0 06/08/2022 Housing Stability Answer Date Recorded What is your housing situation today? I have dioni almzaan 12/30/[address] you li [...] Encounter - Ni Gil RN - 08/30/2023 1:18 PM EDT TC returned to pt., pt. Reports bilateral eyelid drooping was discussed at last appt. 06/07/23 and PCP advised she would place referral for ptosis for pt. To have surgery. Pt. Reports this condition started about 1 year ago and causing blurred vision despite new glasses rx. Advised pt. Message wouldbe sent to PCP requesting referral and pt. Agrees to plan. * Telephone Encounter - Steve Trevino - 08/30/2023 11:50 AM EDT Tc from patient calling to request the status of the referral for Cosmetic Eyelid Surgery how ever technical writer and editor does see anything in chart documented in this encounter Plan of Treatment Upcoming Encounters Date Type Department Care Team (Late st Contact Info) Description 05/18/2024 10:30 AM EST Office Visit [facility] MEDICINE [address] [place] [address] Tommy Chance MD [address] [place] [address] 05/29/2024 2:00 PM EDT Medication Management [facility] MED[facility] [address] [place] [address] Yu Busby PharmD [address] [place] [address] documented as of this encounter Goals Goal [...] documented as of this encounter Care Teams Rental Sales Associate Relationship Specialty Start Date End Date Angelique Grace DO [address] [place] [address] PCP - General Family Medicine 03/14/18 Yu Busby PharmD [address] [place] [address] Pharmacist Internal Medicine 11/03/22 documented as of this encounter
[2024-05-08 11:41] LABS: Alanine Aminotransferase 29 U/L (0-31); Albumin Level 4.2 g/dL (3.5-5.0); Alkaline Phosphatase 80 U/L (39-117); Aspartate Amino Transferase 30 U/L (5-31); Bilirubin Direct 0.1 mg/dL (0.0-0.5); Bilirubin Total 0.3 mg/dL (0.0-1.0); Cholesterol 167 mg/dL (<200); HDL Cholesterol 61 mg/dL (>40); LDL Cholesterol Calculated 89 mg/dL (<100); Total Protein 8.1 g/dL (6.5-8.0); Triglycerides 86 mg/dL (<150)
[2024-05-08 11:50] LABS: Thyroid Stimulating Hormone 0.27 uIU/mL (0.32-4.0)
[2024-05-08 11:51] LABS: Free T4 (Free Thyroxine) 0.85 ng/dL (0.71-1.85)
[2024-05-09 05:59] LABS: Triiodothyronine T3 Total 92 ng/dL (76-181)
== END 2024-05-08 09:59 | disposition home or self-care (01) ==
LOC: HO.LAB 09:58
PROVIDERS: PCP Family Medicine; Visit Provider Student in an Organized Health Care Education/Training Program
DX: E11.9 Type 2 diabetes mellitus without complications (principal); Z79.4 Long term (current) use of insulin; E78.49 Other hyperlipidemia; E05.90 Thyrotoxicosis, unspecified without thyrotoxic crisis or storm
CPT/HCPCS: 36415; 80061; 80076; 84439; 84443; 84480

== ENCOUNTER → 2024-05-24 09:31 | Outpatient (REF) | payer MEDICAID, SELFPAY ==
--- NOTE | ~2024-05-24 | NM_ITS ---
EXAMINATION: NM THYROID UPTAKE AND SCAN CLINICAL INFORMATION: Thyrotoxicosis COMPARISON: None available. TECHNIQUE: Following the oral administration of 293 microcuries of I-123 sodium iodide, thyroid uptake was performed and expressed as a percentage of the administrated dose. Gamma scintillation camera images of the thyroid in the anterior and right and left anterior oblique views were obtained using a pinhole collimator following the administration of 10 mCi Tc-99m pertechnetate a left antecubital vein. FINDINGS: The uptake is 4.05% at 4 hours and 12.70% at 24 hours. On thyroid scan there is normal symmetric activity seen in both lobes except for a mild medial bulbous appearance in the lower pole left gland. No hot or cold nodules visualized. No activity visualized in the upper chest. A marker was placed along the right neck. NM/NM thyroid w uptake IMPRESSION: Slightly bulbous appearing medial lower pole left gland. No hot or cold nodules visualized Normal 24-hour radioiodine uptake. 4 thyroid radioiodine uptake is 4% is just below the normal of 6-18% Electronically signed by: Chad Welch MD 05/25/2024 12:43 PM EDT
--- OUTSIDE RECORDS SUMMARY | 2024-05-24 11:16 | XMS_ITS | Encounter Summary ---
Author Organization [employer] Address 75 [facility] 7t [place] [address] Care Team Providers Care Desilverizer Name Role Phone Angelique Grace DO Primary Care Provider +1- [phone] Yu Busby PharmD Unavailable [phone] Reason for Visit * Reason Onset Date Comments Medication Question 04/26/2024 Encounter Details Date Type Department Care Team (Late st Contact Info) Description 04/26/2024 Refill [facility] MEDICINE 230 [place] [address] Angelique Grace DO 230 [place] [address] Social History Tobacco Use Types Packs/Day Years [...] EST Tc from pt requesting lidocaine patch. Technical Training Manager advise pt not on med list. Pt stated PCP prescribed them in the past due to her history of back pain. Contact pt at [phone] (nepalese) documented in this encounter Plan of Treatment Upcoming Encounters Date Type Department Care Team (Late st Contact Info) Description 05/29/2024 2:00 PM EDT Medication Management [facility] MEDICINE [address] [place] [address] Yu Busby, PharmD 230 [place] [address] 07/27/2024 11:00 AM EDT Office Visit [facility] MEDICINE [address] [place] [address] [phone] Angelique Grace DO 230 [place] [address] documented as of this encounter Goals Goal Patient Goal Type Associated Problems Recent Progress Patient-Stated? Author Smoking cessation General No Yu Busby, PharmD Hemoglobin A1c < 7 Result Component 7.3( 2:54 PM EST) No Dellogono, Castillo, PharmD Record your blood sugar as directed Result Component No Yu Busby PharmD documented as of this encounter Visit Diagnoses Not on filedocumented in this encounter Additional Health Concerns Assessment Noted Time PHQ-9 Depression Total Score: 0 06/09/19 11:27 AM EDT documented as of this encounter Care Teams Desilverizer Relationship Specialty Start Date End Date Angelique Grace DO 230 [place] [address] PCP - General Family Medicine 03/14/18 Yu Busby PharmD 230 [place] [address] Pharmacist Internal Medicine 11/03/22 documented as of this encounter
--- OUTSIDE RECORDS SUMMARY | 2024-05-24 11:16 | XMS_ITS | Encounter Summary ---
Author Organization [employer] Address [address] [facility] [address] [place] [address] Care Team Providers Care Quarry Supervisor Name Role Phone Angelique Grace DO Primary Care Provider [phone] Yu Busby PharmD Unavailable [phone] Reason for Visit * Reason Comments Care Coordination Outreach Encounter Details Date Type Department Care Team (Latest Contact Info) Description 04/24/2024 Patient Outreach [facility] [address] [place], [place] [phone] Angelique Grace DO [address] [facility] [place] [address] Care Coordination (Outreach) Social History Tobacco Use [...] to offer services. CHW introducing herself from [facility] CM Department with CHW's name, department and direct contact [phone] requesting call back. Will re-attempt to contact within 5 days. and address not confirmed. documented in this encounter Plan of Treatment Upcoming Encounters Date Type Department Care Team ([facility] st Contact Info) Description 05/29/2024 2:00 PM EDT Medication Management [facility] [address] [place] [phone] Yu Busby PharmD [address] [place] [address] 07/27/2024 11:00 AM EDT Office Visit [facility] [address] [place] [address] [phone] Angelique Grace DO [address] [place] [address] documented as of this encounter Goals Goal [...] documented as of this encounter Care Teams Quarry Supervisor Relationship Specialty Start Date End Date Angelique Grace DO [address] [place] [address] PCP - General Family Medicine 03/14/18 Yu Busby PharmD [address] [place] [address] Pharmacist Internal Medicine 11/03/22 documented as of this encounter
--- OUTSIDE RECORDS SUMMARY | 2024-05-24 11:16 | XMS_ITS | Encounter Summary ---
Author Organization [employer] Address [address] [facility] [address] [place] [address] Care Team Providers Care Commercial Loan Collection Officer Name Role Phone Angelique Grace DO Primary Care Provider [phone] Yu Busby PharmD Unavailable [phone] Reason for Visit * Reason Onset Date Comments Medication Question 02/16/2024 Encounter Details Date Type Department Care Team ([facility] st Contact Info) Description 02/16/2024 Telephone [facility] [address] [place] [address] Angelique Graec DO [address] [place] [address] Medication Question Social History Tobacco Use Types [...] Description 05/29/2024 2:00 PM EDT Medication Management [facility] [address] [place] [phone] Yu Busby PharmD [address] [place] [phone] 07/27/2024 11:00 AM EDT Office Visit [facility] [address] [place] [address] [phone] Angelique Grace DO [address] [place] [address] [phone] documented as of this encounter Goals Goal Patient Goal Type Associated Problems Recent Progress Patient-Stated? Author Smoking cessation General No Yu Busby PharmYusef Hemoglobin A1c < 7 Result Component 7.3( [...] documented as of this encounter Care Teams Commercial Loan Collection Officer Relationship Specialty Start Date End Date Angelique Grace DO [address] [place] [address] [phone] PCP - General Family Medicine 03/14/18 Yu Busby PharmD [address] [place] [address] [phone] Pharmacist Internal Medicine 11/03/22 documented as of this encounter
--- OUTSIDE RECORDS SUMMARY | 2024-05-24 11:16 | XMS_ITS | Encounter Summary ---
Author Organization [employer] Address [address] [facility] 7[address] [place] [address] Care Team Providers Care Transcript Evaluator Name Role Phone Angelique Grace DO Primary Care Provider [phone] Yu Busby PharmD Unavailable [phone] Reason for Visit * Reason Comments Med Refill Encounter Details Date Type Department Care Team ([facility] st Contact Info) Description 01/05/2023 Refill [facility] [address] [place] [address] Shea Balderas MD [address] [place] [address] Social History Tobacco Use Types Packs/Day Years [...] Description 05/29/2024 2:00 PM EDT Medication Management [facility] [address] [place] [phone] JamesiaYu, PharmD [address] [place] [phone] 07/27/2024 11:00 AM EDT Office Visit [facility] [address] [place] [phone] Angelique Grace DO [address] [place] [phone] documented as of this encounter Goals Goal [...] documented as of this encounter Care Teams Transcript Evaluator Relationship Specialty Start Date End Date Angelique Grace DO [address] [place] [phone] PCP - General Family Medicine 03/14/18 Puia, Yu, PharmD [address] [place] [phone] Pharmacist Internal Medicine 11/03/22 documented as of this encounter
--- OUTSIDE RECORDS SUMMARY | 2024-05-24 11:16 | XMS_ITS | Clinical Summary ---
Author Organization [employer] Address [address] [facility] [address] [place] [address] Care Team Providers Care Glove Tagger Name Role Phone Angelique Grace DO Primary Care Provider [phone] Yu Busby PharmD Unavailable [phone] Allergies Active Allergy Reactions Criticality Noted Date [...] as needed alternating nostrils with each dose 12/17/19 21 Active omega-3 (Fish Oil) 1000 MG capsule Take 1 capsule by mouth 2 times daily. 01/13/20 22 Active E-400 180 MG (400 UNIT) capsule take 2 capsules by oral route every day at bedtime 02/02/20 22 Active Blood Glucose Monitoring Suppl (FreeStyle Lite) deviceIndicatio ns:Type 2 diabetes mellitus without complication, with long-term current use of insulin ([facility]) Inject 1 each under the skin 3 times daily. Use to test blood sugar three times daily, as directed 1 each 04/21/19 Active nystatin (Mycostatin) 561792 UNIT/GM powder Apply topically 2 times daily. 120 g 3 06/13/19 24 2024 Active busPIRone (Buspar) 15 MG tablet Take 1 tablet by mouth 2 times daily. 08/30/19 Active escitalopram (Lexapro) 20 MG tablet Take 10 mg by mouth in the morning. 08/30/19 24 Active omeprazole (PriLOSEC) [address] capsule TAKE ONE CAPSULE BY MOUTH TWICE A DAY BEFORE BREAKFAST AND SUPPER 180 capsule 1 10/04/19 24 Active dapagliflozin (Farxiga) 5 MGIndications:T ype 2 diabetes mellitus without complication, with long-term current use of insulin (CMS/[facility]) TAKE ONE TABLET BY MOUTH EVERY DAY IN THE MORNING 90 tablet 3 11/29/19 24 Active Diclofenac Sodium 1 % gelIndications: Pain APPLY 2 GRAMS TOPICALLY FOUR TIMES A DAY TO THE AFFECTED AREA(S) IF NEEDED FOR PAIN 100 g 3 01/06/20 24 Active ascorbic acid (Vitamin C) 250 MG tablet TAKE 1 TABLET BY MOUTH TWICE A DAY WITH FERROUS SULFATE 180 tablet 1 02/15/20 24 Active amLODIPine (Norvasc) 5 MG tabletIndicatio ns:Primary hypertension TAKE 1 & 1/2 TABLETS BY MOUTH EVERY DAY 135 tablet 3 02/24/20 24 Active Ketotifen Fumarate 0.035 % solution Administer 1 drop into affected eye(s) if needed in the morning and at bedtime (itching). 10 mL 3 02/24/20 24 Active meloxicam (Mobic) 15 MG tablet Take 1 tablet (15 mg) by mouth if needed each day for moderate pain or mild pain. 30 tablet 2 02/24/20 24 2024 Active rosuvastatin (Crestor) 20 MG tablet Take 1 tablet (20 mg) by mouth Once per day. 90 tablet 1 02/28/20 24 Active Procto-Med HC 2.5 % rectal cream apply by topical route 4 times every day to the affected area(s) as needed for Hemorrhoids 28 g 2 02/28/20 24 Active Aspirin Low Dose 81 MG EC tabletIndicatio ns:Type 2 diabetes mellitus without complication, with long-term current use of insulin (CMS/[facility]) TAKE ONE TABLET BY MOUTH EVERY MORNING 90 tablet 3 04/09/19 25 Active butalbital-acet aminophen-caffe ine 50-325-40 MG tablet TAKE ONE TABLET BY MOUTH EVERY 4 HOURS NEEDED. MAX 2 TABLETS PER 24 HOURS 20 tablet 1 04/09/19 25 Active cholecalciferol (Vitamin D-3) 50 MCG (1999 UT) tabletIndicatio ns:Vitamin D deficiency TAKE ONE TABLET BY MOUTH EVERY DAY 90 tablet 04/09/19 25 Active Semaglutide,0.2 5 or 0.5MG/DOS, (Ozempic, 0.25 or 0.5 MG/DOSE,) 2 MG/3ML solution pen-injectorInd ications:Type 2 diabetes mellitus without complication, with long-term current use of insulin ([facility]) Inject 0.25 mg under the skin 1 (one) time per week for 28 days, THEN 0.5 mg 1 (one) time per week for 28 days. 3 mL 1 04/17/19 25 2024 Active Alcohol Swabs padsIndications :Type 2 diabetes mellitus without complication, with long-term current use of insulin ([facility]) USE DIRECTED FOUR TIMES A DAY FOR BLOOD SUGAR TESTING AND INSULIN INJECTION 200 each 04/17/19 25 Active glucose blood (FREESTYLE LITE) test stripIndication s:Type 2 diabetes mellitus without complication, with long-term current use of insulin ([facility]) Test blood sugars three times a day 100 each 04/17/19 25 Active insulin pen needle (B-D ULTRAFINE III SHORT PEN) 31G X 8 mm miscIndications :Type 2 diabetes mellitus without complication, with long-term current use of insulin ([facility]) Use once daily for insulin injection 100 each 3 04/17/19 25 Active TRUEplus Lancets 33G miscIndications :Type 2 diabetes mellitus without complication, with long-term current use of insulin ([facility]) Use to test blood sugar 3 time(s) daily 100 each 04/17/19 25 Active lidocaine (Lidoderm) 5 % patch Apply 1-2 patches topically Once per day. Remove & discard patch within 12 hours or as directed by . 60 patch 1 04/26/19 25 Active oxyCODONE-aceta minophen (Percocet) 5-325 MG tabletIndicatio ns:Chronic right-sided low back pain without sciatica Take 1 tablet by mouth every 12 (twelve) hours if needed for severe pain for up to 28 days. 56 tablet 04/27/19 25 2024 Active insulin glargine (Toujeo SoloStar) 300 UNIT/ML injectionIndica tions:Type 2 diabetes mellitus without complication, with long-term current use of insulin (CMS/HCC) Inject 50 Units under the skin Once per day. Increase as directed to max of 54 units per day 15 mL 1 05/15/19 25 Active baclofen (Lioresal) 10 MG tablet Take one tablet TID PRN 60 tablet 3 05/22/19 25 Active pregabalin (Lyrica) 100 MG capsuleIndicati ons:Neuropathy TAKE ONE CAPSULE BY MOUTH THREE TIMES A DAY 90 capsule 1 05/23/19 25 Active pregabalin (Lyrica) 100 MG capsuleIndicati ons:Neuropathy TAKE ONE CAPSULE BY MOUTH THREE TIMES A DAY 90 capsule 1 12/28/19 24 2024 Discontinued baclofen (Lioresal) 10 MG tablet Take one tablet TID PRN 60 tablet 3 01/06/20 24 2024 Discontinued(R eorder (will not trigger notification to Pharmacy)) insulin glargine (Toujeo SoloStar) 300 UNIT/ML injectionIndica tions:Type 2 diabetes mellitus without complication, with long-term current use of insulin (CMS/HCC) Inject 46 Units under the skin Once per day. Increase as directed to max of 50 units per day 15 mL 1 04/17/19 25 2024 Discontinued(R eorder (will not trigger notification to Pharmacy)) Hospital, [...] Derm referral Chronic sacroiliac pain 02/23/2023 02/24/20 Chronic gastroesophageal reflux disease 06/09/19 23 Tobacco [...] Encounters Date Type Department Care Team Description 05/23/2024 Patient Outreach [facility] [address] [place] [address] Angelique Grace DO Care Coordination (Outreach) 05/21/2024 Refill [facility] [address] [place] [phone] Angelique Grace DO Neuropathy 05/18/2024 Refill [facility] [address] [place] [address] Angelique Grace DO 05/17/2024 Telephone [facility] [address] [place] [phone] Angelique Grace DO Recall Appt. 05/17/2024 Travel 05/14/2024 3:30 PM EST Telemedicine [facility] [address] [place] [address] Yu Busby, ChristieD Type 2 diabetes mellitus without complication, with long-term current use of insulin ([facility]) 05/14/2024 Telephone [facility] [address] [place] [address] Angelique Grace DO Medication Question 05/09/2024 Telephone [facility] [address] [place] [address] Angelique Grace DO Care Coordination ([facility] initial assessment/ enrollment) 05/08/2024 Patient Outreach [facility] [address] [place] [address] Angelique Grace DO Care Coordination (Outreach) 05/08/2024 Orders Only [facility] [address] [facility] [place] [address] Angelique Grace DO 05/03/2024 Telephone [facility] [address] [facility] [place] [address] Angelique Grace DO Durable Medical Equipment 05/02/2024 Patient Outreach [facility] [address] [place] [address] Angelique Grace DO Care Coordination (Outreach) 04/26/2024 Refill [facility] [address] [place] [address] Angelique Grace DO 04/26/2024 Refill [facility] [address] [place] [address] Angelique Grace DO Chronic right-sided low back pain without sciatica (Primary Dx) 04/24/2024 Patient Outreach [facility] [address] [place] [address] Angelique Grace DO Care Coordination (Outreach) 04/22/2024 Orders Only [facility] [address] [place] [address] Angelique Grace DO Type 2 diabetes mellitus without complication, with long-term current use of insulin (CMS/[facility]) (Primary Dx) 04/22/2024 Orders Only GENERIC EXTERNAL DATA DEPARTMENT Provider, Generic External Data 04/14/2024 Refill [facility] [address] [place] [address] Yu Busby PharmD Type 2 diabetes mellitus without complication, with long-term current use of insulin (CMS/HCC) 04/08/2024 Refill [facility] [address] [place] [address] Angelique Grace DO Type 2 diabetes mellitus without complication, with long-term current use of insulin (CMS/HCC); Vitamin D deficiency 04/05/[address] [address] Angelique Grace DO Medication Question 03/28/2024 Patient Outreach [facility] [address] [place] [address] Angelique Grace DO Care Coordination (Outreach) 03/27/2024 3:00 PM EST Office Visit [address] [address] Ilsa Reid MD Generalized abdominal pain (Primary Dx) 03/27/2024 Travel 03/27/2024 Orders Only GENERIC EXTERNAL DATA DEPARTMENT Provider, Generic External Data 03/27/[address] [address] Yu Busby, PharmD 03/26/[address] [address] Angelique Grace DO ER Follow-up; Nurse Triage 03/26/2024 Patient Outreach [facility] [address] [place], [place] [phone] Angelique Grace DO Care Coordination (Outreach) 03/25/2024 Orders Only GENERIC EXTERNAL DATA DEPARTMENT Provider, Generic External Data 03/23/[address] [address] Angelique Grace DO Medication Question 03/21/2024 Orders Only GENERIC EXTERNAL DATA DEPARTMENT Provider, Generic External Data 03/01/[address] [address] Yu Busby, PharmD Prior Authorization (Ozempic ) 03/01/[address] [address] Angelique Grace DO Med Refill 02/28/2024 Orders Only [address] [address] Angelique Grace DO Low TSH level (Primary Dx) 02/28/2024 Orders Only [address] [place] [address] Angelique Grace DO Chronic bilateral low back pain, unspecified whether sciatica present (Primary Dx) 02/28/2024 Refill [facility] [address], [place] [address] Angelique Grace DO Neuropathy 02/28/2024 Telephone [facility] [address] [place] [address] Angelique Grace DO telephone call 02/28/2024 Travel 02/24/2024 Refill [facility] [address] [place] [address] Angelique Grace DO 02/24/2024 Refill [facility] [address] [place] [address] Angelique Grace DO Primary hypertension; Pain; Neuropathy from Last 3 Months Immunizations Name Administration [...] is your housing situation today? I have dionimarty almazan 11/04/[address] you [...] Description 05/29/2024 2:00 PM EDT Medication Management [facility] [address] [place] [phone] Yu Busby, PharmD [address] [place] [address] 07/27/2024 11:00 AM EDT Office Visit [facility] [address] [place] [address] Angelique Grace DO [address] [place] [address] Health Maintenance Due Date Last Done Comments CT Colonography 1970 Colonoscopy 1970 Colorectal Cancer Screening 1970 FIT DNA/Cologuard 1970 FIT 1970 FOBT 1970 Sigmoidoscopy 1970 Diabetes: Foot Exam 1980 Eye Exam 1980 Alcohol/Substance Use Screening 1982 Depression Screening 06/09/2023 06/08/2022, 06/09/19 Diabetes: Hemoglobin A1C 07/15/2024 025, 01/06/2024, 11/29/2023, Additional history exists Diabetes: Urine Protein Screening 01/05/2025 01/06/2024, 09/29/2022, 10/22/2021, Additional history exists Mammogram 03/21/2025 03/21/2024, 05/2023, 03/10/2022, Additional history exists Tobacco Screening 03/27/2025 03/27/2024 SDOH Screening 05/02/2025 05/02/2024 Lipid Panel 05/08/2025 05/08/2024, 12/13, 07/18/2023, Additional history exists Cervical Cancer Screening 04/02/2027 HPV/Cotest 04/02/2027 04/02/2022 [...] Procedure Name Priority Date/Time Associated Diagnosis Comments T3, TOTAL Routine 05/08/2024 10:18 AM EST T4, FREE Routine 05/08/2024 10:18 AM EST TSH Routine 05/08/2024 10:18 AM EST LIPID PANEL, STANDARD Routine 05/08/2024 10:18 AM EST HEPATIC FUNCTION PANEL Routine 05/08/2024 10:18 AM EST URINALYSIS, COMPLETE, WITH REFLEX TO CULTURE Routine 04/22/2024 4:58 PM EST CULTURE, URINE, ROUTINE Routine 04/22/2024 12:00 AM EST Type 2 diabetes mellitus without complication, with long-term current use of insulin ([facility]) POCT GLYCATED HEMOGLOBIN, TOTAL Routine 04/17/2024 2:54 PM EST Type 2 diabetes mellitus without complication, with long-term current use of insulin ([facility]) TSI (THYROID STIMULATING IMMUNOGLOBULIN) Routine 03/27/2024 1:40 [...] Recently Relevant to Health Maintenance Results * T3, Total (05/08/2024 10:18 AM EST) Only the most recent of2 resultswithin the time period is included. T3, Total 92 76 - 181 ng/dL [facility] Comment:THIS TEST WAS PERFOR MED AT:[employer] [place] [id number] SANCHEZ MD 05/08/2024 10:1 8 AM EST 05/08/2024 10:18 AM EST Generic External Data Provider LAB BLOOD ORDERAB LES Final Result Performing Organization Address [facility] Co de Phone Number [facility] [address] [place] [phone] * (ABNORMAL) TSH (05/08/2024 10:18 AM EST) Only the most recent of2 resultswithin the time period is included. Thyroid Stimulating Hormone 0.27(L) 0.32 - 4.0 uIU/mL [facility] Comment:TSH 3rd Generation ( [facility]) 05/08/2024 10:1 8 AM EST 05/08/2024 10:18 AM EST Generic External Data Provider LAB BLOOD ORDERAB LES Final Result Performing Organization Address [facility] de Phone Number [facility] [address] [place] [phone] * T4, Free (05/08/2024 10:18 AM EST) Only the most recent of2 resultswithin the time period is included. Free T4 (Free Thyroxine) 0.85 0.71 - 1.85 ng/dL [facility] 05/08/2024 10:1 8 AM EST 05/08/2024 10:18 AM EST Generic External Data Provider LAB BLOOD ORDERAB LES Final Result Performing Organization Address [facility] Co de Phone Number [facility] [address] [place] [phone] * (ABNORMAL) Hepatic Function Panel (05/08/2024 10:18 AM EST) Only the most recent of2 resultswithin the time period is included. Bilirubin, Total 0.3 0.0 - 1.0 mg/dL [facility] Bilirubin, Direct 0.1 0.0 - 0.5 mg/dL [facility] Aspartate Amino Transferase 30 5 - 31 U/L [facility] Alanine Aminotransferase 29 0 - 31 U/L [facility] Total Protein 8.1(H) 6.5 - 8.0 g/dL [facility] Albumin Level 4.2 3.5 - 5.0 g/dL [facility] Alkaline Phosphatase 80 39 - 117 U/L [facility] 05/08/2024 10:1 8 AM EST 05/08/2024 10:18 AM EST us Angelique Grace DO LAB BLOOD ORDERABLES Final R esult [facility] [address] [place] [phone] * Lipid Panel, Standard (05/08/2024 10:18 AM EST) Triglycerides 86 <150 mg/dL [facility] Comment:Desirable Triglyceri de: less than 150 mg/dLBorderline High Triglyceride 150-199 mg/dLHigh Triglyceride: 200-499 mg/dLVery High Triglyceride: greater than or equal to 5OO mg/dL Cholesterol 167 <200 mg/dL [facility] Comment:Desirable Cholestero l: less than 200 mg/dLBorderline High Cholesterol: 200-239 mg/dLHigh Cholesterol: greater than 239 mg/dL LDL Cholesterol Calculated 89 <100 mg/dL [facility] Comment:Desirable LDL: less than 100 mg/dLNear Optimal/Above Optimal LDL: 110- 129 mg/dLBorderline High LDL: 130-159 mg/dLHigh LDL: 160-189 mg/dLVery High LDL: greater than or equal to 190 mg/dL HDL Cholesterol 61 >40 mg/dL [facility] Comment:Desirable HDL: great er than 40 mg/dL Note: This HDL assay may give artificially low results in patients with liver disease. 05/08/2024 10:1 8 AM EST 05/08/2024 10:18 AM EST us Angelique Grace DO LAB BLOOD ORDERABLES Final R esult Performing Organization Address City/[facility]/ZIP Co de Phone Number [facility] [address] [place] [address] [phone] * (ABNORMAL) Urinalysis, Complete, with Reflex to Culture (04/22/2024 4:58 PM EST) Only the most recent of2 resultswithin the time period is included. Color Urine Yellow [facility] Appearance Urine Turbid [facility] PH 6.0 5.0 - 9.0 [facility] Glucose Urine UA >=1000(A) Negative mg/dL [facility] Urine Blood Moderate (2+)(A) Negative [facility] Specific Casar - Urine >=1.030(H) 1.005 - 1.025 [facility] Urine Protein Trace Neg-Trace mg/dL [facility] Urine Ketones Negative Negative mg/dL [facility] Nitrite Urine Negative Negative [facility] Leukocyte Esterase Urine Moderate (2+)(A) Negative [facility] RBC Urine 11-20(A) 0 - 2 /HPF [facility] Urine WBC >50(A) 0 - 5 /HPF [facility] Urine Squamous Epithelial Cell 0-2 0 - 2 /HPF [facility] Urine Bacteria Trace None Seen [facility] Hyaline Casts, Urine 0-2 0 - 2 /LPF [facility] 04/22/2024 4:58 PM EST 04/22/2024 5:06 PM EST Narrative [facility] - 04/22/2024 5:20 PM EST Urine, Clean Catch us Generic External Data Provider LAB URINE ORDERAB LES Final Result Performing Organization Address City/[facility]/ZIP Co de Phone Number [facility] [address] [place] [phone] * Culture, Urine, Routine (04/22/2024 12:00 AM EST) Urine Urine specimen obtained by clean catch procedure / Unknown 04/22/2024 04/22/2024 Comment:[facility] Narrative [facility] - 04/24/2024 7:22 AM EST Escherichia [...] GENERAL ORDERABLES Final Result Performing Organization Address City/State/[facility] Co de Phone Number [facility] [address] [place] [phone] * (ABNORMAL) POCT HGB A1C (04/17/2024 2:54 PM EST) Hemoglobin A1C 7.3(A) 4.0 - 6.0 % QC [employer] Lot # [id number] Blood 04/17/2024 2:54 PM EST Angelique Grace DO POINT OF CARE TEST ENTER/ARETHA T ORDERABLES Final Result * CBC auto differential (03/27/2024 1:40 PM EST) Only the most recent of2 resultswithin the time period is included. White Blood Count 6.5 4.8 - 10.8 X10*3/uL [facility] Red Blood Count 4.64 4.20 - 5.50 X10*6/uL [facility] Hemoglobin 14.0 12.0 - 16.0 g/dl [facility] Hematocrit 41.0 37.0 - 47.0 % [facility] Mean Corpuscular Volume 88.4 80.0 - 98.0 fL [facility] Mean Corpuscular Hemoglobin 30.2 27.0 - 33.0 pg [facility] Mean Corpuscular HGB Conc 34.1 31.0 - 35.0 g/dl [facility] Red Cell Distribution Width 13.5 11.0 - 16.0 % [facility] Platelet Count 229 160 - 400 X10*3/uL [facility] Mean Platelet Volume 10.8 9.4 - 12.3 fL [facility] Neutrophils Percent Auto 57.4 45 - 73 % [facility] Imm Gran Pct Auto 0.2 0.0 - 0.4 % [facility] Lymphocytes Percent Auto 31.6 20 - 40 % [facility] Monocytes Percent Auto 6.3 2 - 11 % [facility] Eosinophils Percent Auto 4.0 0 - 4 % [facility] Basophils Percent Auto 0.5 0 - 2 % [facility] NRBC Pct Auto 0.0 0.0 - 0.2 /100WBC [facility] Neutrophils Absolute Auto 3.7 2.0 - 8.3 x10*3/uL [facility] Imm Gran Abs Auto 0.01 0.00 - 0.03 X10*3/uL [facility] Lymphocytes Absolute Auto 2.1 1.2 - 4.9 X10*3/uL [facility] Monocytes Absolute Auto 0.4 0.1 - 1.2 X10*3/uL [facility] Eosinophils Absolute Auto 0.3 0.0 - 0.4 X10*3/uL [facility] Basophils Absolute Auto 0.0 0.0 - 0.2 X10*3/uL [facility] NRBC Abs Auto 0.000 0.0 - 0.012 X10*3/uL [facility] 03/27/2024 1:40 PM EST 03/27/2024 1:40 PM EST us Generic External Data Provider LAB BLOOD ORDERAB LES Final Result [facility] [address] [place] [phone] * Thyroid Peroxidase Antibodies (03/27/2024 1:40 PM EST) Thyroid Peroxidase Antibodies 2 <9 IU/mL [facility] Comment:THIS TEST WAS PERFOR MED AT:[facility] [address] [id number] SANCHEZ MD 03/27/2024 1:40 PM EST 03/27/2024 1:40 PM EST us Generic External Data Provider LAB BLOOD ORDERAB LES Final Result [facility] [address] [place] [phone] * TSI (Thyroid Stimulating Immunoglobulin) (03/27/2024 1:40 PM EST) Thyroid Stimulating Immunoglobulin <89 <140 % baseline [facility] Comment: Thyroid stimulating immunoglobulins (TSI) can [...] hCG concentrationfalls below 40,625 mIU/mL (usually after [id number] gestation).The analytical performance characteristics of thisassay have been determined by [facility], [place], [place]. ??The modificationshave not been cleared or approved by the FDA. ??Thisassay has been validated pursuant to the CLIAregulations and is used for clinical purposes.THIS TEST WAS PERFORMED AT:[id number] [place], [place] ??[phone] RICHEY MD,PHD 03/27/2024 1:40 PM EST 03/27/2024 1:40 PM EST [facility] [place] Data Provider LAB BLOOD ORDERAB LES Final Result Performing Organization Address [facility] de Phone Number [facility] [address] [place] [phone] * TRAb (TSH Receptor Binding Antibody) (03/27/2024 1:40 PM EST) TRAb (TSH Receptor Binding Antibody) <1.00 <=2.00 IU/L [facility] Comment:This test was perfor med using the TRAb Antibody ELISAmethod which is standardized against the [address] [place], [place] [address]national Standard 90/672 and is reported inInternational Units (IU/L). The reference rangereported was established specifically for this testmethod.THIS TEST WAS PERFORMED AT:[id number] [place] [id number] RICHEY MD,PHD 03/27/2024 1:40 PM EST 03/27/2024 1:40 PM EST [facility] External Data Provider LAB BLOOD ORDERAB LES Final Result Performing Organization Address [facility] de Phone Number [facility] [address] [place] [phone] * XR KUB and Upright 2 Views (03/25/2024 10:35 PM EST) Anatomical Region Laterality Modality Radiographic Lucie ging 03/25/2024 10:3 5 PM EST Narrative 03/25/2024 10:37 PM EST ? [facility] ?[address] ?[place] [address] ?XRay Report ? Signed ? Patient: Neal Cappa,Ginnette ?MR#: [id number] ?? [id number] ? : 1970 ?Acct:[id number] ? Age/Sex: 53 / F ?ADM Date: 03/25/24 ? Loc: HO.ED ? Attending Dr: ? Ordering Physician: Rimma Rojo ?? Date of Service: 03/25/24 ?? Procedure(s): XR KUB ?? Accession Number(s): [id number] ? cc: Rimma Rojo; Angelique Grace DO [...] ? DD/ 34 ? TD/TT: 03/25/242234 ? Market Intelligence Consultant: ? Procedure Note Hitesh, Image - 03/25/[address] [address] XRay Report Signed Patient: Maria C LewisMR#: M [id number] : 1970Acct:[id number] Age/Sex: 53 / FADM Date: 03/25/24 Loc: HO.ED Attending Dr: Ordering Physician: Rimma Rojo Date of Service: 03/25/24 Procedure(s): XR KUB Accession Number(s): [id number] cc: Rimma Rojo; Angelique Grace DO CLINICAL HISTORY: pain 1 view abdomen [...] in OV> 03/25/242235 DD/ 34 TD/TT: 03/25/242234 Market Intelligence Consultant: [facility] External Provider IMG XR PROCEDURES Edited Result - Final * SARS-CoV-2 RNA, Influenza A/B, and RSV RNA, Ql NAAT (03/25/2024 5:30 PM EST) Influenza A PCR NEGATIVE Negative [facility] Influenza B PCR NEGATIVE Negative [facility] Resp Syncy Virus RNA Qual PCR NEGATIVE Negative [facility] SARS COV2 PCR NEGATIVE Negative [facility] Comment:All test results mus t be [...] use by authorized laboratories.Testing performed on the [employer] GeneXpert utilizingreal-time RT-PCR.All SARS CoV2 and positive influenza A/B results arereported to [facility]. 03/25/2024 5:30 PM EST 03/25/2024 5:53 PM EST Generic External Data Provider LAB MICROBIOLOGY - GENERAL ORDERABLES Final Result [facility] [address] [place] [phone] * Magnesium (03/25/2024 5:29 PM EST) [facility] Magnesium 2.1 1.6 - 2.6 mg/dL [facility] 03/25/2024 5:29 PM EST 03/25/2024 5:53 PM EST Generic External Data Provider LAB BLOOD ORDERAB LES Final Result Performing Organization Address [facility] Co de Phone Number [facility] [address] [place] [phone] * Lipase (03/25/2024 5:29 PM EST) [facility] Lipase 29 8 - 78 U/L [facility] 03/25/2024 5:29 PM EST 03/25/2024 5:53 PM EST Generic External Data Provider LAB BLOOD ORDERAB LES Final Result Performing Organization Address [facility] Phone Number [facility] [address] [place] [phone] * (ABNORMAL) Comprehensive Metabolic Panel (03/25/2024 5:29 PM EST) [facility] Sodium 141 135 - 145 mmol/L [facility] Potassium 4.5 3.3 - 5.1 mmol/L [facility] Chloride 108 96 - 108 mmol/L [facility] Carbon Dioxide 28 22 - 29 mmol/L [facility] Anion Gap 10(L) 12 - 20 [facility] Urea Nitrogen (BUN) 16 9 - 16 mg/dL [facility] Creatinine, Serum 0.75 0.5 - 1.4 mg/dL [facility] Creatinine Clr Calc Pharmacy 81.3 [facility] Comment:Provided height and weight: 154.94 cm,76.7 kg.eGFR (calculated from the MDRD study equation) and eCrCl(calculated from the Cockcroft-Gault equation) are based ondifferent parameters and may not yield comparable results.If eCrCl result is absurd, please check patient'sheight/weight. Estimated Glomerular Filt Rate >60 [facility] Comment:Chronic Kidney Disea se: Estimated GFR < 60 mL/min/1.52q0Cmckvy Kidney Disease: Estimated GFR < 15 mL/min/1.73m2 Glucose 89 60 - 115 mg/dL [facility] Calcium 9.5 8.4 - 10.2 mg/dL [facility] Bilirubin, Total 0.3 0.0 - 1.0 mg/dL [facility] Aspartate Amino Transferase 39(H) 5 - 31 U/L [facility] Alanine Aminotransferase 51(H) 0 - 31 U/L [facility] Total Protein 7.7 6.5 - 8.0 g/dL [facility] Albumin Level 4.3 3.5 - 5.0 g/dL [facility] Alkaline Phosphatase 68 39 - 117 U/L [facility] 03/25/2024 5:2 9 PM EST 03/25/2024 5:53 PM EST us Generic External Data Provider LAB BLOOD ORDERAB LES Final Result [facility] [address] [place] [phone] * (ABNORMAL) Basic Metabolic Panel (03/21/2024 4:24 PM EST) Sodium 141 135 - 145 mmol/L [facility] Potassium 4.6 3.3 - 5.1 mmol/L [facility] Chloride 106 96 - 108 mmol/L [facility] Carbon Dioxide 28 22 - 29 mmol/L [facility] Anion Gap 12 12 - 20 [facility] Urea Nitrogen (BUN) 20(H) 9 - 16 mg/dL [facility] Creatinine, Serum 0.78 0.5 - 1.4 mg/dL [facility] Estimated Glomerular Filt Rate >60 [facility] Comment:Chronic Kidney Disea se: Estimated GFR < 60 mL/min/1.22z9Yydiwe Kidney Disease: Estimated GFR < 15 mL/min/1.73m2 Glucose 124(H) 60 - 115 mg/dL [facility] Calcium 9.7 8.4 - 10.2 mg/dL [facility] 03/21/2024 4:24 PM EST 03/21/2024 4:24 PM EST us Generic External Data Provider LAB BLOOD ORDERAB LES Final Result [facility] [address] [place] [address] [phone] * BI Mammogram Screening Tomosynthesis Bilateral (03/21/2024 2:15 PM EST) Anatomical Region Laterality Modality Breast Bilateral Mammography 03/21/2024 2:15 PM EST Narrative 03/28/2024 9:29 AM EST ? [facility] ? [address] ?[place] [address] ? Mammography Report ? Signed ? Patient: Ángel Lewis,Maria C ?MR#: M ?? [id number] ? : 1970 ?Acct:[id number] ? Age/Sex: 53 / F ?ADM Date: 03/21/25 ? Loc: HO.MAMMO ? Attending Dr: Angelique Grace DO ? Ordering Physician: Angelique Grace DO ?Results: 1N ?? egative ? Date of Service: 03/21/24 ?Follow Up: 1 Year From Orig ?? inal Mammogram ? Procedure(s): MM tomosynthesis screening BI ?? Accession Number(s): [id number] ? cc: Angelique Grace DO ? EXAMINATION: [...] DD/ 1415 ? TD/TT: 03/21/24 1442 ? Market Intelligence Consultant: ? Procedure Note Hitesh, Image - 03/28/2024 [place] [facility]'[address] [place] [address] Mammography Report Signed Patient: Maria C LewisMR#: M [id number] : 1970Acct:[id number] Age/Sex: 53 / FADM Date: 03/21/24 Loc: HO.MAMMO Attending Dr: Angelique Grace DO Ordering Physician: Angelique Graceults: 1N egative Date of Service: 03/21/24Follow Up: 1 Year From Orig ina Mammogram Procedure(s): MM tomosynthesis screening BI Accession Number(s): [id number] cc: Angelique Grace DO EXAMINATION: MM SCREENING [...] 03/28/24 0926 DD/ 1415 TD/TT: 03/21/24 1442 Market Intelligence Consultant: Angelique Grace DO IMG BI PROCEDURES Final Resu lt * Hepatitis C Antibody with Reflex to HCV, RNA, Quantitative, Real-Time PCR (01/06/2024 2:02 PM EDT) Hepatitis C Antibody Nonreactive Nonreactive [facility] Comment:Antibodies to HCV no t detected; does not exclude early acuteHCV infection. Blood Venous blood specimen / Unknown 01/06/2024 2:02 PM EDT 01/06/2024 2:02 PM EDT Angelique Sanjay LAB BLOOD ORDERABLES Final R esult Performing Organization Address City/[facility]/ZIP Co de Phone Number [facility] [address] [place] [phone] * HIV-1/2 Antigen and Antibodies, Fourth Generation, with Reflexes (01/06/2024 2:02 PM EDT) HIV AB/AG Nonreactive Nonreactive [facility] Comment:HIV-1 p24 Ag and/or HIV-1/HIV-2 Ab not detected.A test result that is nonreactive does not exclude thepossibility of exposure to or infection with HIV-1 and/orHIV-2. Nonreactive results in this assay for individualswith prior exposure to HIV-1 and/or HIV-2 may be due toantigen and antibody levels that are below the limit ofdetection of this assay.The [employer] HIV Ag/Ab Combo assay result andsupplemental assay results should be interpreted inconjunction with the patient's clinical presentation,history and other laboratory results. If the results areinconsistent with clinical evidence, additional testing issuggested to confirm the result. Blood Venous blood specimen / Unknown 01/06/2024 2:02 PM EDT 01/06/2024 2:02 PM EDT us Angelique Sanjay DO LAB BLOOD ORDERABLES Final R esult Performing Organization Address City/[facility]/ZIP Co de Phone Number [facility] [address] [place] [phone] * Albumin, Random Urine W/Creatinine (01/06/2024 1:54 PM EDT) Creatinine, Urine 130.38 mg/dL [facility] Microalbumin Urine 24.0 mg/L [facility] Microalbum Creatinine Ratio Ur 18.4 <30 ug/mg cr [facility] Comment:Albumin/Creatinine R atio Reference Ranges: Normal: < 30 ug/mg creatinine Microalbuminuria: 30 - 300 ug/mg creatinineClinical Albuminuria: > 300 ug/mg creatinine Urine (Urine, Random) 01/06/2024 1:54 PM EDT 01/06/2024 2:50 PM EDT Angelique Grace DO LAB URINE ORDERABLES Final R esult [facility] [address] [place] [phone] * Pap Smear (04/02/2022) Pap Negative for intraephithelial lesion or malignancy Negative for intraephithelial lesion or malignancy, Other HPV Undetected Undetected, Indeterminate, Quantitative, Not Detected Historical Provider HEALTH MAINTENANCE Final Result from Last 3 Months or Most Recently Relevant to Health Maintenance Insurance [facility] C3 Care Teams Glove Tagger Relationship Specialty Start Date End Date Angelique Grace DO [address] [place] [address] PCP - General Family Medicine 03/14/18 Yu Busby PharmD [address] [place] [phone] Pharmacist Internal Medicine 11/03/22
--- OUTSIDE RECORDS SUMMARY | 2024-05-24 11:16 | XMS_ITS | Encounter Summary ---
Author Organization [employer] Address [address] [facility] 7t [place] [address] Care Team Providers Care Roguer Name Role Phone Angelique Grace DO Primary Care Provider [phone] Yu Busby PharmD Unavailable [phone] Reason for Visit * Reason Onset Date Comments Med Refill 04/26/2024 Encounter Details Date Type Department Care Team (Late st Contact Info) Description 04/26/2024 Refill [facility] [address] [place] [address] Angelique Grace DO [address] [place] [address] Chronic right-sided low back pain without sciatica [...] tablet To be sent to: [facility] [place], [place] - [address] [facility] documented in this encounter Plan of Treatment Upcoming Encounters Date Type Department Care Team (Late st Contact Info) Description 05/29/2024 2:00 PM EDT Medication Management [facility] [address] [place] [phone] Yu Busby PharmD [address] [place] [address] 07/27/2024 11:00 AM EDT Office Visit [facility] [address] [place] [phone] Angelique Grace DO [address] [place] [address] documented as of this encounter Goals Goal [...] documented as of this encounter Care Teams Roguer Relationship Specialty Start Date End Date Angelique Grace DO [address] [place] [address] PCP - General Family Medicine 03/14/18 Yu Busby PharmD [address] [place] [address] Pharmacist Internal Medicine 11/03/22 documented as of this encounter
--- OUTSIDE RECORDS SUMMARY | 2024-05-24 11:16 | XMS_ITS | Encounter Summary ---
Author Organization [employer] Address 75 [facility] 7t [place] [address] Care Team Providers Care Band Straightener Name Role Phone Angelique Grace DO Primary Care Provider [phone] Yu Busby PharmD Unavailable [phone] Reason for Visit * Reason Onset Date Comments callback requested 01/27/2024 Encounter Details Date Type Department Care Team ([facility] st Contact Info) Description 01/27/2024 Telephone [facility] [address] [place] [address] Angelique Grace DO [address] [place] [address] callback requested Social History Tobacco Use Types [...] has to payout of pocket , Callback [phone] documented in this encounter Plan of Treatment Upcoming Encounters Date Type Department Care Team (Late st Contact Info) Description 05/29/2024 2:00 PM EDT Medication Management [facility] [address] [place] [phone] Yu Busby PharmD [address] [place] [address] 07/27/2024 11:00 AM EDT Office Visit [facility] [address] [place] [phone] Angelique Grace DO [address] [place] [address] documented as of this encounter Goals Goal Patient Goal Type Associated Problems Recent Progress Patient-Stated? Author Smoking cessation General No Yu Busby PharmD Hemoglobin A1c < 7 Result Component 7.3(02/04/202 5 2:54 PM EST) No Castillo Pradhan PharmD Record your blood sugar as directed Result Component No Yu Busby PharmD documented as of this encounter Visit Diagnoses Not on filedocumented in this encounter Additional Health Concerns Assessment Noted Time PHQ-9 Depression Total Score: 0 06/09/19 11:27 AM EDT documented as of this encounter Care Teams Band Straightener Relationship Specialty Start Date End Date Angelique Grace DO [address] [place] [address] PCP - General Family Medicine 03/14/18 Yu Busby PharmD [address] [place] [address] Pharmacist Internal Medicine 11/03/22 documented as of this encounter
--- OUTSIDE RECORDS SUMMARY | 2024-05-24 11:16 | XMS_ITS | Encounter Summary ---
Author Organization [employer] Address 75 [facility] 7t [place] [address] Care Team Providers Care Motorboat Mechanic Name Role Phone Angelique Grace DO Primary Care Provider [phone] Yu Busby PharmD Unavailable [phone] Reason for Visit * Reason Comments Med Refill Encounter Details Date Type Department Care Team ([facility] st Contact Info) Description 02/14/2023 Refill [facility] [address] [place] [address] Yulias Cedillo MD [address] [place] [address] Primary hypertension Social History Tobacco Use Types [...] Description 05/29/2024 2:00 PM EDT Medication Management [facility] [address] [place] [phone] Yu Busby, PharmD [address] [place] [address] 07/27/2024 11:00 AM EDT Office Visit [facility] [address] [place] [phone] Angelique Grace DO [address] [place] [phone] documented as of this encounter Goals Goal [...] documented as of this encounter Care Teams Motorboat Mechanic Relationship Specialty Start Date End Date Angelique Grace DO [address] [place] [phone] PCP - General Family Medicine 03/14/18 Puia, Yu, PharmD [address] [place] [phone] Pharmacist Internal Medicine 11/03/22 documented as of this encounter
--- OUTSIDE RECORDS SUMMARY | 2024-05-24 11:16 | XMS_ITS | Encounter Summary ---
Author Organization [employer] Address [address] [facility] 7t [place] [address] Care Team Providers Care Assembly Line Supervisor Name Role Phone Angelique Grace DO Primary Care Provider [phone] Yu Busby PharmD Unavailable [phone] Reason for Visit * Reason Onset Date Comments Nurse Triage 01/10/2023 Encounter Details Date Type Department Care Team ([facility] st Contact Info) Description 01/10/2023 Telephone [facility] [address] [place] [address] Angelique Grace DO [address] [place] [address] Nurse Triage Social History Tobacco Use Types [...] 01/10/2023 4:01 PM EDT Triage call with [employer] [employer] [id number] Pt reports burning with urination which started yesterday. Urine has a foul odor, low back pain andbil leg pain. Pt is advised to come to [facility] to be seen and Pt agrees [...] accepted this outcome Please contact pt at [phone] (Trinidadian) documented in this encounter Plan of Treatment Upcoming Encounters Date Type Department Care Team (Late st Contact Info) Description 05/29/2024 2:00 PM EDT Medication Management [facility] [address] [place] [phone] Yu Busby, PharmD [address] [place], [place] [phone] 07/27/2024 11:00 AM EDT Office Visit [facility] [address] [place], [place] [phone] Angelique Grace DO [address] [place] [address] documented as of this encounter Goals Goal Patient Goal Type Associated Problems Recent Progress Patient-Stated? Author Smoking cessation General No Yu Busby, PharmD Hemoglobin A1c < 7 Result Component 7.3( 5 2:54 PM EST) No Castillo Pradhan PharmYusef Record your blood sugar as directed Result Component No Yu Busby, PharmD documented as of this encounter Visit Diagnoses Not on filedocumented in this encounter Additional Health Concerns Assessment Noted Time PHQ-9 Depression Total Score: 0 06/09/19 23 11:27 AM EDT documented as of this encounter Care Teams Assembly Line Supervisor Relationship Specialty Start Date End Date Angelique Grace DO [address] [place], [place] [phone] PCP - General Family Medicine 03/14/18 JamesiaCorneliasa, PharmD [address] [place], [place] [phone] Pharmacist Internal Medicine 11/03/22 documented as of this encounter
--- OUTSIDE RECORDS SUMMARY | 2024-05-24 11:16 | XMS_ITS | Encounter Summary ---
Author Organization [employer] Address 75 [facility] 7t [place] [address] Care Team Providers Care Environmental Conservation Professor Name Role Phone Angelique Grace DO Primary Care Provider [phone] Yu Busby PharmD Unavailable [phone] Reason for Visit * Reason Onset Date Comments Med Refill 01/07/2023 Encounter Details Date Type Department Care Team ([facility] st Contact Info) Description 01/07/2023 Telephone [facility] [address] [place] [address] Angelique Grace DO [address] [place] [address] Med Refill Social History Tobacco Use Types [...] (Lyrica) 100MG capsule to be sent to [facility] documented in this encounter Plan of Treatment Upcoming Encounters Date Type Department Care Team (Late st Contact Info) Description 05/29/2024 2:00 PM EDT Medication Management [facility] [address] [place] [phone] Yu Busby, PharmD [address] [place] [address] 07/27/2024 11:00 AM EDT Office Visit [facility] [address] [place] [phone] Angelique Grace DO [address] [place] [address] documented as of this encounter Goals Goal [...] documented as of this encounter Care Teams Environmental Conservation Professor Relationship Specialty Start Date End Date Angelique Grace DO [address] [place] [address] PCP - General Family Medicine 03/14/18 Yu Busby PharmD [address] [place] [address] Pharmacist Internal Medicine 11/03/22 documented as of this encounter
--- OUTSIDE RECORDS SUMMARY | 2024-05-24 11:16 | XMS_ITS | Encounter Summary ---
Author Organization [employer] Address [address] [facility] 7t [place] [address] Care Team Providers Care Statistician Mathematical Name Role Phone Angelique Grace DO Primary Care Provider [phone] Yu Busby PharmD Unavailable [phone] Encounter Details Date Type Department Care Team (Late st Contact Info) Description 05/08/2024 Orders Only [facility] [address] [place] [address] Angelique Grace DO [address] [place] [address] Social History Tobacco Use Types Packs/Day Years [...] Description 05/29/2024 2:00 PM EDT Medication Management [facility] [address] [place] [address] Yu Busby PharmD [address] [place] [phone] 07/27/2024 11:00 AM EDT Office Visit [facility] [address] [place] [address] Angelique Grace DO [address] [place] [address] documented as of this encounter Goals Goal [...] T3, TOTAL Routine 05/08/2024 10:18 AM EST TSH Routine 05/08/2024 10:18 AM EST T4, FREE Routine 05/08/2024 10:18 AM EST HEPATIC FUNCTION PANEL Routine 05/08/2024 10:18 AM EST LIPID PANEL, STANDARD Routine 05/08/2024 10:18 AM EST documented in this encounter Results * T3, Total (05/08/2024 10:18 AM EST) T3, Total 92 76 - 181 ng/dL [facility] Comment:THIS TEST WAS PERFOR MED AT:[facility] [place] [id number] SANCHEZ MD 05/08/2024 10:1 8 AM EST 05/08/2024 10:18 AM EST Generic External Data Provider LAB BLOOD ORDERAB LES Final Result Performing Organization Address [facility] Co de Phone Number [facility] [address] [place] [phone] * T4, Free (05/08/2024 10:18 AM EST) Pathologist [facility] Free T4 (Free Thyroxine) 0.85 0.71 - 1.85 ng/dL [facility] 05/08/2024 10:1 8 AM EST 05/08/2024 10:18 AM EST Generic External Data Provider LAB BLOOD ORDERAB LES Final Result Performing Organization Address [facility] Co de Phone Number [facility] [address] [place] [phone] * (ABNORMAL) TSH (05/08/2024 10:18 AM EST) Pathologist [facility] Thyroid Stimulating Hormone 0.27(L) 0.32 - 4.0 uIU/mL [facility] Comment:TSH 3rd Generation ( [facility]) 05/08/2024 10:1 8 AM EST 05/08/2024 10:18 AM EST us Generic External Data Provider LAB BLOOD ORDERAB LES Final Result Performing Organization Address [facility] Co de Phone Number [facility] [address] [place] [address] [phone] * Lipid Panel, Standard (05/08/2024 10:18 AM EST) Triglycerides 86 <150 mg/dL [facility] Comment:Desirable Triglyceri de: less than 150 mg/dLBorderline High Triglyceride 150-199 mg/dLHigh Triglyceride: 200-499 mg/dLVery High Triglyceride: greater than or equal to 5OO mg/dL Cholesterol 167 <200 mg/dL [facility] Comment:Desirable Cholestero l: less than 200 mg/dLBorderline High Cholesterol: 200-239 mg/dLHigh Cholesterol: greater than 239 mg/dL LDL Cholesterol Calculated 89 <100 mg/dL [facility] Comment:Desirable LDL: less than 100 mg/dLNear Optimal/Above Optimal LDL: 110- 129 mg/dLBorderline High LDL: 130-159 mg/dLHigh LDL: 160-189 mg/dLVery High LDL: greater than or equal to 190 mg/dL HDL Cholesterol 61 >40 mg/dL [facility] Comment:Desirable HDL: great er than 40 mg/dL Note: This HDL assay may give artificially low results in patients with liver disease. 05/08/2024 10:1 8 AM EST 05/08/2024 10:18 AM EST Angelique Grace DO LAB BLOOD ORDERABLES Final R esult Performing Organization Address City/[facility]/ZIP Co de Phone Number [facility] [address] [place] [address] [phone] * (ABNORMAL) Hepatic Function Panel (05/08/2024 10:18 AM EST) Bilirubin, Total 0.3 0.0 - 1.0 mg/dL [facility] Bilirubin, Direct 0.1 0.0 - 0.5 mg/dL [facility] Aspartate Amino Transferase 30 5 - 31 U/L [facility] Alanine Aminotransferase 29 0 - 31 U/L [facility] Total Protein 8.1(H) 6.5 - 8.0 g/dL [facility] Albumin Level 4.2 3.5 - 5.0 g/dL [facility] Alkaline Phosphatase 80 39 - 117 U/L [facility] 05/08/2024 10:1 8 AM EST 05/08/2024 10:18 AM EST us Angelique Grace DO LAB BLOOD ORDERABLES Final R esult [facility] [address] [place] [address] [phone] documented in this encounter Visit Diagnoses Not on filedocumented in this encounter Additional Health Concerns Assessment Noted Time PHQ-9 Depression Total Score: 0 06/09/19 23 11:27 AM EDT documented as of this encounter Care Teams Statistician Mathematical Relationship Specialty Start Date End Date Angelique Grace DO [address] [place] [address] PCP - General Family Medicine 03/14/18 Yu Busby PharmD [address] [place] [address] Pharmacist Internal Medicine 11/03/22 documented as of this encounter
--- OUTSIDE RECORDS SUMMARY | 2024-05-24 11:16 | XMS_ITS | Encounter Summary ---
Author Organization [employer] Address 75 [facility] 7t [place] [address] Care Team Providers Care Dental Technician Instructor Name Role Phone Angelique Grace DO Primary Care Provider +1- [phone] Yu Busby PharmD Unavailable [phone] Reason for Visit * Reason Onset Date Comments Nurse Triage 01/12/2024 Encounter Details Date Type Department Care Team ([facility] st Contact Info) Description 01/12/2024 Telephone [facility] [address] [place] [address] Angelique Grace DO 230 [place] [address] Nurse Triage Social History Tobacco Use Types [...] 01/12/2024 11:28 AM EDT Called pt. Via [place]. Pt. States that she is having numbness in both hands when she sleeps at night and when she uses her tablet. Pt. States she called to make an appt. With [facility] [address] [place] [address] -Fax number [phone] or [phone] DX. Arthralgias but, they told her that [...] Description 05/29/2024 2:00 PM EDT Medication Management [facility] [address] [place] [address] Yu Busby, PharmD [address] [place] [address] 07/27/2024 11:00 AM EDT Office Visit [facility] [address] [place] [address] [phone] Angelique Grace DO [address] [place] [address] [phone] documented as of this encounter Goals Goal [...] documented as of this encounter Care Teams Dental Technician Instructor Relationship Specialty Start Date End Date Angelique Grace DO [address] [place] [address] [phone] PCP - General Family Medicine 03/14/18 JamesiaCorneliasa, PharmD [address] [place] [address] [phone] Pharmacist Internal Medicine 11/03/22 documented as of this encounter
--- OUTSIDE RECORDS SUMMARY | 2024-05-24 11:16 | XMS_ITS | Encounter Summary ---
Author Organization [employer] Address 75 [facility] 7t [place] [address] Care Team Providers Care Monkey Breeder Name Role Phone Angelique Grace DO Primary Care Provider +1 [phone] Yu Busby PharmD Unavailable [phone] Reason for Visit * Reason Comments Med Refill Encounter Details Date Type Department Care Team ([facility] st Contact Info) Description 11/03/2023 Refill [facility] MEDICINE 230 [place] [address] Angelique Grace DO 230 [place] [address] Social History Tobacco Use Types Packs/Day Years [...] Description 05/29/2024 2:00 PM EDT Medication Management [facility]INE [address] [place] [address] Yu Busby, PharmD [address] [place] [address] 20[address] 07/27/2024 11:00 AM EDT Office Visit [facility] [address] [place] [address] Angelique Grace DO [address] [place] [address] 288[address] documented as of this encounter Goals Goal Patient Goal Type Associated Problems Recent Progress Patient-Stated? Author Smoking cessation General No PuiaDarrynYu, PharmD Hemoglobin A1c < 7 Result Component 7.3( 2:54 PM EST) No Castillo Pradhan, PharmD Record your blood sugar as directed Result Component No Puia Yu, PharmD documented as of this encounter Visit Diagnoses Not on filedocumented in this encounter Additional Health Concerns Assessment Noted Time PHQ-9 Depression Total Score: 0 06/09/19 23 11:27 AM EDT documented as of this encounter Care Teams Monkey Breeder Relationship Specialty Start Date End Date Angelique Grace DO [address] [place] [address] PCP - General Family Medicine 03/14/18 Puia, Yu, PharmD [address] [place] [address] 14177 Pharmacist Internal Medicine 11/03/22 documented as of this encounter
--- OUTSIDE RECORDS SUMMARY | 2024-05-24 11:16 | XMS_ITS | Encounter Summary ---
Author Organization [employer] Address 75 [facility] 7t [place] [address] Care Team Providers Care Client Support Associate Name Role Phone Angelique Grace DO Primary Care Provider +1- [phone] Yu Busby PharmD Unavailable [phone] Reason for Visit * Reason Onset Date Comments Med Refill 03/01/2024 Encounter Details Date Type Department Care Team ([facility] st Contact Info) Description 03/01/2024 Telephone [facility] 230 [place] [address] Angelique Grace DO 230 [place] [address] Med Refill Social History Tobacco Use Types [...] sent to: [facility] [address] documented in this encounter Plan of Treatment Upcoming Encounters Date Type Department Care Team (Late st Contact Info) Description 05/29/2024 2:00 PM EDT Medication Management [facility] [address] [place] [address] Yu Busby PharmD [address] [place] [address] 07/27/2024 11:00 AM EDT Office Visit [facility] [address] [place] [address] Angelique Grace DO 230 [place] [address] documented as of this encounter Goals Goal [...] documented as of this encounter Care Teams Client Support Associate Relationship Specialty Start Date End Date Angelique Grace DO [address] [place] [address] PCP - General Family Medicine 03/14/18 Yu Busby PharmD [address] [place] [address] Pharmacist Internal Medicine 11/03/22 documented as of this encounter
--- OUTSIDE RECORDS SUMMARY | 2024-05-24 11:16 | XMS_ITS | Encounter Summary ---
Author Organization [employer] Address 75 [facility] 7t [place] [address] Care Team Providers Care Geriatric Nurse Assistant Name Role Phone Angelique Grace DO Primary Care Provider [phone]- [phone] Yu Busby PharmD Unavailable [phone] Reason for Visit * Reason Onset Date Comments Durable Medical Equipment 05/03/2024 Encounter Details Date Type Department Care Team ([facility] st Contact Info) Description 05/03/2024 Telephone [facility] [address] [place] [address] Angelique Grace DO 230 [place] [address] Durable Medical Equipment Social History Tobacco Use [...] * Telephone Encounter - Camryn Velazquez - 05/09/2024 2:27 PM EST Call was made to [facility], [facility] staff, stated that patient had already picked up a refill of her electrode pads for her TENS unit on 05/08. Patient will need a new recert-order to continue future refills. DME RX for Tens Unit- Electrodes generated and placed on providers desk for signature. * Telephone Encounter - Sade Morales - [...] Description 05/29/2024 2:00 PM EDT Medication Management [facility] [address] [place] [address] Yu Busby, PharmD 230 [place] [address] 07/27/2024 11:00 AM EDT Office Visit [facility] [address] [place] [address] Angelique Grace DO [address] [place] [address] documented as of this encounter Goals Goal [...] documented as of this encounter Care Teams Geriatric Nurse Assistant Relationship Specialty Start Date End Date Angelique Grace DO [address] [place] [address] PCP - General Family Medicine 03/14/18 Yu Busby PharmD 230 [place] [address] Pharmacist Internal Medicine 11/03/22 documented as of this encounter
--- OUTSIDE RECORDS SUMMARY | 2024-05-24 11:16 | XMS_ITS | Encounter Summary ---
Author Organization [employer] Address 75 [facility] 7t [place] [address] Care Team Providers Care Humidifier Maintenance Worker Name Role Phone Angelique Grace DO Primary Care Provider [phone]- [phone] Yu Busby PharmD Unavailable [phone] Reason for Visit * Reason Comments Care Coordination Outreach Encounter Details Date Type Department Care Team (Latest Contact Info) Description 05/02/2024 Patient Outreach [facility] [address] [place], [place] [phone] Angelique Grace DO 230 [facility] [place] [address] Care Coordination (Outreach) Social History Tobacco Use [...] encounter Progress Notes * Dolores Hood - 05/02/2024 10:20 AM EST CHW Dolores Hood, placed outbound call to patient introducing herself from [facility], in regards to offering services. Patient's name and was confirmed. Patient agrees to participate in program. Appt. for initial assessment scheduled for 05/09/24 @ 1:00 PM. CHW reinforced direct contact information or CM for any additional questions or concerns and extended clinic hours on Mondays and Wednesdays, and Walk-In Urgent Care Located in [facility]. Patient provided with after-hours line for [facility], , which offer night time triageservice and option to transfer to secondary history teacher provider if needed. Patient verbalizes understanding, and able to repeat back to blurb writer. documented in this encounter Plan of Treatment Upcoming Encounters Date Type Department Care Team (Late st Contact Info) Description 05/29/2024 2:00 PM EDT Medication Management [facility] MEDICINE 230 [place] [address] Yu Busby, PharmD 230 [place], [place] [phone] 07/27/2024 11:00 AM EDT Office Visit [facility] MEDICINE 230 [place] [address] Angelique Grace DO [address] [place] [address] documented as of this encounter Goals Goal [...] documented as of this encounter Care Teams Humidifier Maintenance Worker Relationship Specialty Start Date End Date Angelique Grace DO 230 [place] [address] PCP - General Family Medicine 03/14/18 Yu Busby, PharmD 230 [place] [address] Pharmacist Internal Medicine 11/03/22 documented as of this encounter
--- OUTSIDE RECORDS SUMMARY | 2024-05-24 11:16 | XMS_ITS | Encounter Summary ---
Author Organization [employer] Address 75 [facility] 7t [place] [address] Care Team Providers Care Elevator Operator Name Role Phone Angelique Grace DO Primary Care Provider +1- [phone] Yu Busby PharmD Unavailable [phone] Reason for Visit * Reason Onset Date Comments Medication Question 12/15/2022 nitroglyceri n (Nitrostat) 0.4 MG SL tablet Encounter Details Date Type Department Care Team (Late st Contact Info) Description 12/15/2022 Telephone [facility] [address] [place] [address] Angelique Grace DO 230 [place], [place] [phone] Medication Question (nitroglycerin (Nitrostat) 0.4 MG SL [...] to Cardiology found 01/2022. Dr. Bruno # [phone] FAX [phone] * Telephone Encounter - Snow Pickard - 12/15/2022 1:51 PM EDT Tc from pt requesting status on last message . Oil Derrick Operator informed has to contact her cardiology dr [...] any symptoms at this time. Patient speaks hong konger. documented in this encounter Plan of Treatment Upcoming Encounters Date Type Department Care Team (Late st Contact Info) Description 05/29/2024 2:00 PM EDT Medication Management [facility] [address] [place] [address] Yu Busby PharmD [address] [place] [address] 07/27/2024 11:00 AM EDT Office Visit [facility] [address] [place] [address] Angelique Grace DO [address] [place] [address] documented as of this encounter Goals Goal [...] documented as of this encounter Care Teams Elevator Operator Relationship Specialty Start Date End Date Angelique Grace DO [address] [place] [address] PCP - General Family Medicine 03/14/18 Yu Busby PharmD [address] [place] [address] Pharmacist Internal Medicine 11/03/22 documented as of this encounter
--- OUTSIDE RECORDS SUMMARY | 2024-05-24 11:17 | XMS_ITS | Encounter Summary ---
Author Organization [employer] Address 75 [facility] 7t [place] [address] Care Team Providers Care Parts Driver Name Role Phone Angelique Grace Primary Care Provider + [phone] Yu Busby PharmD Unavailable [phone] Encounter Details Date Type Department Care Team (Late st Contact Info) Description 05/12/2023 Orders Only [facility] [address] [place] [address] ProviderKhadar MD Social History Tobacco Use Types [...] housing situation today? I have dionimarty almazan 12/30/[address] you [...] Description 05/29/2024 2:00 PM EDT Medication Management [facility] MEDICINE [address] [place] [address] PuiaYu, PharmD [address] [place] [address] 07/27/2024 11:00 AM EDT Office Visit [facility] [address] [place] [address] Angelique Grace DO 230 [place] [address] documented as of this encounter Goals Goal [...] documented as of this encounter Care Teams Parts Driver Relationship Specialty Start Date End Date Angelique Grace DO [address] [place] [address] PCP - General Family Medicine 03/14/18 Yu Busby, Radha [address] [place] [address] Pharmacist Internal Medicine 11/03/22 documented as of this encounter
--- OUTSIDE RECORDS SUMMARY | 2024-05-24 11:17 | XMS_ITS | Encounter Summary ---
Author Organization [employer] Address 75 [facility] 7t [place] [address] Care Team Providers Care Radiography Technician Name Role Phone Angelique Grace DO Primary Care Provider [phone] Yu Busby PharmD Unavailable [phone] Encounter Details Date Type Department Care Team (Late st Contact Info) Description 08/10/[address] [facility]INE 230 [place] [address] Angelique Grace DO [address] [place] [address] Social History Tobacco Use Types Packs/Day Years [...] t he electric, gas, oil or water [employer] threatened to shut off services in your [...] Description 05/29/2024 2:00 PM EDT Medication Management [facility] [address] [place] [address] Yu Busby PharmD [address] [place] [address] 07/27/2024 11:00 AM EDT Office Visit [facility] [address] [place] [address] Angelique Grace DO [address] [place] [address] documented as of this encounter Goals Goal [...] documented as of this encounter Care Teams Radiography Technician Relationship Specialty Start Date End Date Angelique Grace DO [address] [place] [address] [phone] PCP - General Family Medicine 03/14/18 Yu Busby, PharmD [address] [place] [address] Pharmacist Internal Medicine 11/03/22 documented as of this encounter
--- OUTSIDE RECORDS SUMMARY | 2024-05-24 11:17 | XMS_ITS | Encounter Summary ---
Author Organization [employer] Address 75 [facility] 7t [place] [address] Care Team Providers Care Joiner Apprentice Name Role Phone Angelique Grace DO Primary Care Provider +1 [phone] Yu Busby PharmD Unavailable [phone] Reason for Visit * Reason Onset Date Comments Accomodation Letter 08/23/2023 Encounter Details Date Type Department Care Team ([facility] st Contact Info) Description 08/23/2023 Telephone [facility]INE 230 [place] [address] Angelique Grace DO 230 [place] [address] Accomodation Letter Social History Tobacco Use Types [...] Pt was transferred from Him in which underwriter mortgage loan contact HIM for clarification. They informed underwriter mortgage loan pt was advised to leave message with providers team. If any questions please contact pt at [phone]. documented in this encounter Plan of Treatment Upcoming Encounters Date Type Department Care Team (Late st Contact Info) Description 05/29/2024 2:00 PM EDT Medication Management [address] [address] PuiaaDrrynYu, PharmD [address] [place] [address] 07/27/2024 11:00 AM EDT Office Visit [address] [address] Angelique Grace DO [address] [place] [address] documented as of this encounter Goals Goal [...] documented as of this encounter Care Teams Joiner Apprentice Relationship Specialty Start Date End Date Angelique Grace DO [address] [place] [address] PCP - General Family Medicine 03/14/18 Puia, Yu, PharmD 230 [place] [address] Pharmacist Internal Medicine 11/03/22 documented as of this encounter
--- OUTSIDE RECORDS SUMMARY | 2024-05-24 11:17 | XMS_ITS | Encounter Summary ---
Author Organization [employer] Address 75 [facility] 7t [place] [address] Care Team Providers Care Licensed Nuclear Operator Name Role Phone Angelique Grace DO Primary Care Provider [phone] [phone] Yu Busby PharmD Unavailable [phone] Reason for Visit * Reason Onset Date Comments Call Back Request 03/23/2023 Encounter Details Date Type Department Care Team ([facility] st Contact Info) Description 03/23/2023 Telephone [facility]INE [address] [place] [address] Angelique Grace DO 230 [place] [address] Call Back Request Social History Tobacco Use [...] requesting a call back in regards pregabalin LANDY, scientific technical writer advise pt about the status on chart but pt still want a call from a nurse. documented in this encounter Plan of Treatment Upcoming Encounters Date Type Department Care Team (Late st Contact Info) Description 05/29/2024 2:00 PM EDT Medication Management [facility] MEDICINE [address] [place] [address] Yu Busby PharmD [address] [place] [address] 07/27/2024 11:00 AM EDT Office Visit [facility] MED[facility]INE [address] [place] [address] Angelique Grace DO 230 [place] [address] documented as of this encounter Goals Goal [...] documented as of this encounter Care Teams Licensed Nuclear Operator Relationship Specialty Start Date End Date Angelique Grace DO 230 [place] [address] PCP - General Family Medicine 03/14/18 Yu Busby PharmD 230 [place] [address] Pharmacist Internal Medicine 11/03/22 documented as of this encounter
--- OUTSIDE RECORDS SUMMARY | 2024-05-24 11:17 | XMS_ITS | Encounter Summary ---
Author Organization [employer] Address 75 [facility] 7t [place] [address] Care Team Providers Care Orthotic Practitioner Name Role Phone Angelique Grace DO Primary Care Provider [phone] [phone] Yu Busby PharmD Unavailable [phone] Encounter Details Date Type Department Care Team (Late st Contact Info) Description 2023 Abstract [facility] MED[facility]INE [address] [place] [address] Angelique Grace DO 230 [place] [address] Social History Tobacco Use Types Packs/Day Years [...] t he electric, gas, oil or water [employer] threatened to shut off services in your [...] Description 05/29/2024 2:00 PM EDT Medication Management [facility] MED[facility]INE [address] [place] [address] Yu Busby PharmD [address] [place] [address] 07/27/2024 11:00 AM EDT Office Visit [facility] [address] [place] [address] Angelique Grace DO [address] [place] [address] documented as of this encounter Goals Goal [...] documented as of this encounter Care Teams Orthotic Practitioner Relationship Specialty Start Date End Date Angelique Grace DO [address] [place] [address] [phone] PCP - General Family Medicine 03/14/18 Yu Busby, PharmD [address] [place] [address] Pharmacist Internal Medicine 11/03/22 documented as of this encounter
--- OUTSIDE RECORDS SUMMARY | 2024-05-24 11:17 | XMS_ITS | Encounter Summary ---
Author Organization [employer] Address 75 [facility] 7t [place] [address] Care Team Providers Care Oil Rig Roughneck Name Role Phone Sanjay Angelique DE JESUS Primary Care Provider [phone] [phone] DelCastillo clements PharmD Unavailable Unavail able Yu Busby PharmD Unavailable [phone] Reason for Visit * Reason Comments Med Refill Encounter Details Date Type Department Care Team (Late st Contact Info) Description 05/21/2022 Refill [facility]INE 230 [place] [address] Brent [place]vin FNP Degeneration of lumbar intervertebral [...] Description 05/29/2024 2:00 PM EDT Medication Management [address] [address] Yu Busby PharmD [address] [place] [address] 07/27/2024 11:00 AM EDT Office Visit [address] [address] Angelique Grace DO [address] [place] [address] documented as of this encounter Visit Diagnoses Diagnosis Degeneration of lumbar intervertebral disc Degeneration of lumbar or lumbosacral intervertebral disc documented in this encounter Care Teams Oil Rig Roughneck Relationship Specialty Start Date End Date Angelique Grace DO [address] [place] [address] PCP - General Family Medicine 03/14/18 Castillo Pradhan, ChristieD [address] [place] [address] Pharmacist Internal Medicine 07/22/22 11/02/22 Yu Busby, PharmD [address] [place] [address] Pharmacist Internal Medicine 11/03/22 documented as of this encounter
--- OUTSIDE RECORDS SUMMARY | 2024-05-24 11:17 | XMS_ITS | Encounter Summary ---
Author Organization [employer] Address 75 [facility] 7t [place] [address] Care Team Providers Care Magician/Illusionist Name Role Phone Angelique Grace DO Primary Care Provider [phone]- [phone] DelCastillo clements PharmD Unavailable Unavail able Yu Busby PharmD Unavailable Reason for Visit * Reason Onset Date Comments Call requesting 05/26/2022 Encounter Details Date Type Department Care Team ([facility] st Contact Info) Description 05/26/2022 Telephone [facility] MEDICINE 230 [place] [address] Angelique Grace DO 230 [place] [address] Call requesting Social History Tobacco Use Types [...] Master IM be used so pt. Can mine analyst her appt? * Telephone Encounter - Rosio Diaz - 05/26/2022 11:05 AM EDT Tc from pt requesting a call from the nurses pt claims that in order to get an appt at [facility]([phone]), nurse has to call make appt because facility is requiring some information in order to schedule appt. Please contact pt at [phone] documented in this encounter Plan of Treatment Upcoming Encounters Date Type Department Care Team ([facility] st Contact Info) Description 05/29/2024 2:00 PM EDT Medication Management [address] [address] Yu Busby PharmD [address] [place] [address] 07/27/2024 11:00 AM EDT Office Visit [facility] MEDICINE [address] [place] [address] Angelique Grace DO [address] [place] [address] documented as of this encounter Visit Diagnoses Not on filedocumented in this encounter Care Teams Magician/Illusionist Relationship Specialty Start Date End Date Angelique Grace DO [address] [place] [address] PCP - General Family Medicine 03/14/18 Castillo Pradhan PharmD [address] [place] [address] Pharmacist Internal Medicine 07/22/22 11/02/22 Yu Busby, PharmD [address] [place] [address] Pharmacist Internal Medicine 11/03/22 documented as of this encounter
--- OUTSIDE RECORDS SUMMARY | 2024-05-24 11:17 | XMS_ITS | Encounter Summary ---
Author Organization [employer] Address 75 [facility] 7t [place] [address] Care Team Providers Care Public Health Aides Teacher Name Role Phone Angelique Grace DO Primary Care Provider [phone] Yu Busby PharmD Unavailable [phone] Reason for Visit * Reason Comments Med Refill Encounter Details Date Type Department Care Team ([facility] st Contact Info) Description 06/01/2023 Refill [facility] MED[facility]INE [address] [place] [address] Yulisa Cedillo MD [address] [place] [address] Primary hypertension Social History Tobacco Use Types [...] Description 05/29/2024 2:00 PM EDT Medication Management [facility] MED[facility]INE [address] [place] [address] Yu Busby, PharmD [address] [place] [address] 07/27/2024 11:00 AM EDT Office Visit [facility] MED[facility]INE [address] [place] [address] Angelique Grace DO [address] [place] [address] documented as of this encounter Goals Goal [...] documented as of this encounter Care Teams Public Health Aides Teacher Relationship Specialty Start Date End Date Angelique Grace DO [address] [place] [address] PCP - General Family Medicine 03/14/18 Puia, Yu, PharmD [address] [place] [address] Pharmacist Internal Medicine 11/03/22 documented as of this encounter
--- OUTSIDE RECORDS SUMMARY | 2024-05-24 11:17 | XMS_ITS | Encounter Summary ---
Author Organization [employer] Address 75 [facility] 7t [place] [address] Care Team Providers Care Machine Ii Engraver Name Role Phone Angelique Grace DO Primary Care Provider +1- [phone] Yu Busby PharmD Unavailable [phone] Reason for Visit * Reason Onset Date Comments Referral 07/19/2023 Encounter Details Date Type Department Care Team (Late st Contact Info) Description 07/19/2023 Telephone [facility] MEDICINE 230 [place] [address] Angelique Grace DO [address] [place] [address] Referral Social History Tobacco Use Types Packs/Day [...] Miscellaneous Notes * Telephone Encounter - Carlos Velaqzuez - 07/19/2023 3:01 PM EDT Tc from pt requesting status on referral for plastic surgery. Please contact pt at [phone]. documented in this encounter Plan of Treatment Upcoming Encounters Date Type Department Care Team (Late st Contact Info) Description 05/29/2024 2:00 PM EDT Medication Management [facility] MED[facility]INE [address] [place] [address] Yu Busby PharmD [address] [place] [address] 07/27/2024 11:00 AM EDT Office Visit [facility] MED[facility]INE [address] [place] [address] Angelique Grace DO [address] [place] [address] documented as of this encounter Goals Goal [...] documented as of this encounter Care Teams Machine Ii Engraver Relationship Specialty Start Date End Date Angelique Grace DO [address] [place] [address] PCP - General Family Medicine 03/14/18 Yu Busby PharmD [address] [place] [address] Pharmacist Internal Medicine 11/03/22 documented as of this encounter
--- OUTSIDE RECORDS SUMMARY | 2024-05-24 11:17 | XMS_ITS | Encounter Summary ---
Author Organization [employer] Address 75 [facility] 7t [place] [address] Care Team Providers Care Records Management Clerk Name Role Phone Angelique Grace DO Primary Care Provider [phone]- [phone] Yu Busby PharmD Unavailable [phone] Reason for Visit * Reason Comments Med Refill Encounter Details Date Type Department Care Team ([facility] st Contact Info) Description 05/21/2024 Refill [facility] MED[facility]INE [address] [place] [address] Angelique Grace DO 230 [place] [address] Neuropathy Social History Tobacco Use Types Packs/Day Years [...] Description 05/29/2024 2:00 PM EDT Medication Management [address] [address] JamesiaYu, PharmD [address] [place] [address] 07/27/2024 11:00 AM EDT Office Visit [facility] MED[facility]INE [address] [place] [address] Angelique Grace DO [address] [place] [address] documented as of this encounter Goals Goal Patient Goal Type Associated Problems Recent Progress Patient-Stated? Author Smoking cessation General No PuiaDarrynYu, PharmD Hemoglobin A1c < 7 Result Component 7.3( 2:54 PM EST) No DellogCastillo toledo, PharmD Record your blood sugar as directed Result Component No Puia Yu, PharmD documented as of this encounter Visit Diagnoses Diagnosis Neuropathy Mononeuritis of unspecified site documented in this encounter Additional Health Concerns Assessment Noted Time PHQ-9 Depression Total Score: 0 06/09/19 11:27 AM EDT documented as of this encounter Care Teams Records Management Clerk Relationship Specialty Start Date End Date Angelique Grace DO [address] [place] [address] PCP - General Family Medicine 03/14/18 Yu Busby, Radha [address] [place] [address] Pharmacist Internal Medicine 11/03/22 documented as of this encounter
--- OUTSIDE RECORDS SUMMARY | 2024-05-24 11:17 | XMS_ITS | Encounter Summary ---
Author Organization [employer] Address 75 [facility] 7t [place] [address] Care Team Providers Care Antiquer Name Role Phone Angelique Grace DO Primary Care Provider [phone] [phone] Yu Busby PharmD Unavailable [phone] Reason for Visit * Reason Onset Date Comments Med Refill 05/18/2024 Encounter Details Date Type Department Care Team (Late st Contact Info) Description 05/18/2024 Refill [facility] MEDICINE 230 [place] [address] Angelique Grace DO [address] [place] [address] Social History Tobacco Use Types Packs/Day Years [...] Telephone Encounter - Angelique Soler LPN - 05/18/2024 4:19 PM EST Next appointment 07/27/24. * Telephone Encounter - Betzaida Bland - 05/18/2024 4:15 PM EST Tc from pt requesting medication refill for baclofen (Lioresal) 10 MG tablet ,ascorbic acid (Vitamin C) 250 MG tablet , documented in this encounter Plan of Treatment Upcoming Encounters Date Type Department Care Team (Late st Contact Info) Description 05/29/2024 2:00 PM EDT Medication Management [facility] MED[facility]INE [address] [place] [address] Yu Busby, PharmD [address] [place] [address] 07/27/2024 11:00 AM EDT Office Visit [facility] [address] [place] [address] Angelique Grace DO [address] [place] [address] documented as of this encounter Goals Goal [...] documented as of this encounter Care Teams Antiquer Relationship Specialty Start Date End Date Angelique Grace DO [address] [place] [address] PCP - General Family Medicine 03/14/18 Yu Busby PharmD [address] [place] [address] Pharmacist Internal Medicine 11/03/22 documented as of this encounter
--- OUTSIDE RECORDS SUMMARY | 2024-05-24 11:17 | XMS_ITS | Encounter Summary ---
Author Organization [employer] Address 75 [facility] 7t [place] [address] Care Team Providers Care Fly Fishing Guide Name Role Phone Angelique Grace DO Primary Care Provider [phone]- [phone] Yu Busby PharmD Unavailable [phone] Encounter Details Date Type Department Care Team (Late st Contact Info) Description 05/14/2024 3:30 PM EST Telemedicine [facility] MEDICINE 230 [place] [address] JamesiaYu, PharmD 230 [place] [address] Type 2 diabetes mellitus without complication, with long-term current use of insulin ([facility]) Social History Tobacco Use Types Packs/Day Years [...] as of this encounter Progress Notes * Yu Busby PharmD - 05/14/2024 3:30 PM EST Pharmacy Brief Encounter - Medication Follow Up Pharmacist: Yu Busby PharmD Maria C Lewis is a 54 y.o. year old patient here for CDTM - Diabetes completed over the phone. Pharmacotherapy: Farxiga 5 mg daily Ozempic 0.25 mg weekly x4 then 0.5 mg weekly, as tolerated Toujeo U-300, inject 46 units subQ once daily Summary of previous encounter(s): CDTM 04/17/24 - restart Ozempic, insulin self titration parameters given while on initial dose of Ozempic Today's Visit: Patient called in at ~3 pm today to report high BGs. Declined triage and [facility] patient; she reports FBGs typically in the 200 to 230 mg/dL range the last week or so Reports having used Ozempic 0.25 mg weekly x3 doses thus far (last on Saturday 05/13). Denies GI JESSICA. Reports continued adherence to Farxiga 5 mg and Toujeo self increased from 46 to 48 units earlier today. Pertinent negatives include polyuria, polydipsia, blurred vision Plan: Continue Ozempic 0.25 mg x1 additional dose (4 total) Sun 05/20. Plan to initiate 0.5 mg weekly (treatment dose) thereafter starting 05/27. Continue Toujeo 48 units daily (increased today) x3 additional days. Discussed insulin self titration parameters with patient: if FBGs are persistently >150 mg/dL w/o hypoBG (<70 mg/dL) self titrate Toujeo +2 units every 4 days to max of 54 units daily. Will revisit need for ongoing titrationin follow up; anticipate BGs will improve once treatment dose of Ozempic is initiated & reviewed this with patient today. Patient confirmed understanding. Follow up in [facility] - Diabetes in ~2 weeks, as previously scheduled, for next steps. documented in this encounter Plan of Treatment Upcoming Encounters Date Type Department Care Team (Late st Contact Info) Description 05/29/2024 2:00 PM EDT Medication Management [facility] MEDICINE [address] [place] [address] Yu Busby PharmD [address] [place] [address] 07/27/2024 11:00 AM EDT Office Visit [facility] MEDICINE [address] [place] [address] Angelique Grace DO 230 [place] [address] documented as of this encounter Goals Goal [...] complication, with long-term current use of insulin ([facility]) documented in this encounter Additional Health Concerns Assessment Noted Time PHQ-9 Depression Total Score: 0 06/09/19 23 11:27 AM EDT documented as of this encounter Care Teams Fly Fishing Guide Relationship Specialty Start Date End Date Angelique Grace DO [address] [place] [address] PCP - General Family Medicine 03/14/18 Yu Busby PharmD [address] [place] [address] Pharmacist Internal Medicine 11/03/22 documented as of this encounter
--- OUTSIDE RECORDS SUMMARY | 2024-05-24 11:17 | XMS_ITS | Encounter Summary ---
Author Organization [employer] Address 75 [facility] 7t [place] [address] Care Team Providers Care Marker Shipments Name Role Phone Angelique Grace DO Primary Care Provider [phone] Yu Busby PharmD Unavailable [phone] Reason for Visit * Reason Onset Date Comments Medication Question 05/14/2024 Encounter Details Date Type Department Care Team ([facility] st Contact Info) Description 05/14/2024 Telephone [facility] MEDICINE [address] [place] [address] Angelique Grace DO [address] [place], [place] [phone] Medication Question Social History Tobacco Use Types [...] encounter Miscellaneous Notes * Telephone Encounter - Jose M Dobbinsnandez - 05/14/2024 3:01 PM EST Tc from pt requesting call back to Speak with Yu. Pt states that she Currently has High Blood sugar but pt Denied Triage. She would like to Discuss her medication. Contact pt at [phone] documented in this encounter Plan of Treatment Upcoming Encounters Date Type Department Care Team (Late st Contact Info) Description 05/29/2024 2:00 PM EDT Medication Management [facility] MEDICINE [address] [place] [address] Yu Busby PharmD [address] [place] [address] 07/27/2024 11:00 AM EDT Office Visit [facility] MEDICINE [address] [place] [address] Angelique Grace DO [address] [place], [place] [phone] documented as of this encounter Goals Goal Patient Goal Type Associated Problems Recent Progress Patient-Stated? Author Smoking cessation General No Yu Busby, PharmYusef Hemoglobin A1c < 7 Result Component 7.3( 2:54 PM EST) No Castillo Pradhan PharmYusef Record your blood sugar as directed Result Component No Yu Busby PharmD documented as of this encounter Visit Diagnoses Not on filedocumented in this encounter Additional Health Concerns Assessment Noted Time PHQ-9 Depression Total Score: 0 06/09/19 23 11:27 AM EDT documented as of this encounter Care Teams Marker Shipments Relationship Specialty Start Date End Date Angelique Grace DO [address] [place] [address] PCP - General Family Medicine 03/14/18 Yu Busby PharmD [address] [place] [address] Pharmacist Internal Medicine 11/03/22 documented as of this encounter
--- OUTSIDE RECORDS SUMMARY | 2024-05-24 11:17 | XMS_ITS | Encounter Summary ---
Author Organization [employer] Address 75 [facility] 7t [place] [address] Care Team Providers Care Hoop Rolls Operator Name Role Phone Angelique Grace DO Primary Care Provider [phone]- [phone] Yu Busby PharmD Unavailable [phone] Reason for Visit * Reason Comments Med Refill Encounter Details Date Type Department Care Team ([facility] st Contact Info) Description 07/09/2023 Refill [facility] MED[facility]INE [address] [place] [address] Angelique Grace DO [address] [place] [address] Type 2 diabetes mellitus without complication, with long-term current use of insulin ([facility]) Social History Tobacco Use Types Packs/Day Years [...] Description 05/29/2024 2:00 PM EDT Medication Management [facility] MEDICINE [address] [place] [address] Yu Busby, PharmD [address] [place] [address] 07/27/2024 11:00 AM EDT Office Visit [facility] MED[facility]INE [address] [place] [address] Angelique Grace DO [address] [place] [address] documented as of this encounter Goals Goal Patient Goal Type Associated Problems Recent Progress Patient-Stated? Author Smoking cessation General No Yu Busby, PharmD Hemoglobin A1c < 7 Result Component 7.3( 5 2:54 PM EST) No Castillo Pradhan PharmD Record your blood sugar as directed Result Component No Darryn Busbyyssa, PharmD documented as of this encounter Visit Diagnoses Diagnosis Type 2 diabetes mellitus without complication, with long-term current use of insulin ([facility]) documented in this encounter Additional Health Concerns Assessment Noted Time PHQ-9 Depression Total Score: 0 06/09/19 23 11:27 AM EDT documented as of this encounter Care Teams Hoop Rolls Operator Relationship Specialty Start Date End Date Angelique Grace DO [address] [place] [address] PCP - General Family Medicine 03/14/18 Yu Busby, ChristieD [address] [place] [address] Pharmacist Internal Medicine 11/03/22 documented as of this encounter
--- OUTSIDE RECORDS SUMMARY | 2024-05-24 11:17 | XMS_ITS | Encounter Summary ---
Author Organization [employer] Address 75 [facility] 7t [place] [address] Care Team Providers Care Automotive Detailer Name Role Phone Angelique Grace DO Primary Care Provider [phone] Yu Busby PharmD Unavailable [phone] Reason for Visit * Reason Onset Date Comments Recall Appt. 05/17/2024 Encounter Details Date Type Department Care Team ([facility] st Contact Info) Description 05/17/2024 Telephone [facility] MEDICINE [address] [place] [address] Angelique Grace DO [address] [place] [address] Recall Appt. Social History Tobacco Use Types Packs/Day Years [...] encounter Miscellaneous Notes * Telephone Encounter - Sara Morgan MA - 05/17/2024 10:41 AM EST .Telephone call to patient to schedule the following recall: Visit type: Office visit extended Appointment notes: DM Patient agree to appointment on 07/27/2024 at 11:00 AM with Nancy. documented in this encounter Plan of Treatment Upcoming Encounters Date Type Department Care Team (Late st Contact Info) Description 05/29/2024 2:00 PM EDT Medication Management [facility] MEDICINE [address] [place] [address] Yu Busby PharmD [address] [place] [address] 07/27/2024 11:00 AM EDT Office Visit [facility] MEDICINE [address] [place] [address] Angelique Grace DO [address] [place] [address] documented as of this encounter Goals Goal [...] documented as of this encounter Care Teams Automotive Detailer Relationship Specialty Start Date End Date Angelique Grace DO [address] [place] [address] PCP - General Family Medicine 03/14/18 Yu Busby PharmD [address] [place] [address] Pharmacist Internal Medicine 11/03/22 documented as of this encounter
--- OUTSIDE RECORDS SUMMARY | 2024-05-24 11:17 | XMS_ITS | Encounter Summary ---
Author Organization [employer] Address 75 [facility] 7t [place] [address] Care Team Providers Care Brick And Blocker Aid Labor Name Role Phone Angelique Grace DO Primary Care Provider [phone]- [phone] Yu Busby PharmD Unavailable [phone] Reason for Visit * Reason Comments Care Coordination Outreach Encounter Details Date Type Department Care Team (Latest Contact Info) Description 05/08/2024 Patient Outreach [facility] [address] [place], [place] [phone] Angelique Grace DO [address] [facility] [place] [address] Care Coordination (Outreach) Social History Tobacco Use [...] encounter Progress Notes * Dolores Hood - 05/08/2024 2:27 PM EST CHW Dolores Hood placed outbound call to patient introducing herself from [facility] CM Department, in regards to remind patient of Adult Complex Care program initial assessment appt for tomorrow 05/09/24 @ 1:00 PM via telephone. Patient's name and was confirmed. Patient is aware and confirmed will be available for call and has no barriers on attending call. Patient verbalized understanding and agrees with plan. documented in this encounter Plan of Treatment Upcoming Encounters Date Type Department Care Team (Late st Contact Info) Description 05/29/2024 2:00 PM EDT Medication Management [facility] MEDICINE [address] [place] [address] Yu Busby, PharmD 230 [place] [address] 07/27/2024 11:00 AM EDT Office Visit [facility] MEDICINE [address] [place] [address] Angelique Grace DO [address] [place] [address] documented as of this encounter Goals Goal [...] documented as of this encounter Care Teams Brick And Blocker Aid Labor Relationship Specialty Start Date End Date Angelique Grace DO [address] [place] [address] PCP - General Family Medicine 03/14/18 Yu Busby PharmD [address] [place] [address] Pharmacist Internal Medicine 11/03/22 documented as of this encounter
--- OUTSIDE RECORDS SUMMARY | 2024-05-24 11:17 | XMS_ITS | Encounter Summary ---
Author Organization [employer] Address 75 [facility] 7t [place] [address] Care Team Providers Care Mobile Home Technician Name Role Phone Angelique Grace DO Primary Care Provider [phone]- [phone] Yu Busby PharmD Unavailable [phone] Reason for Visit * Reason Onset Date Comments Durable Medical Equipment 03/03/2023 Encounter Details Date Type Department Care Team ([facility] st Contact Info) Description 03/03/2023 Telephone [facility] MEDICINE [address] [place] [address] Angelique Grace DO [address] [place] [address] Durable Medical Equipment Social History Tobacco Use [...] Cane Electric Patches Please contact pt @ [phone] documented in this encounter Plan of Treatment Upcoming Encounters Date Type Department Care Team (Late st Contact Info) Description 05/29/2024 2:00 PM EDT Medication Management [facility] MEDICINE [address] [place] [address] Yu Busby, PharmD [address] [place] [address] 07/27/2024 11:00 AM EDT Office Visit [facility] MEDICINE [address] [place] [address] Angelique Grace DO [address] [place] [address] documented as of this encounter Goals Goal [...] documented as of this encounter Care Teams Mobile Home Technician Relationship Specialty Start Date End Date Angelique Grace DO [address] [place] [address] PCP - General Family Medicine 03/14/18 Yu Busby PharmD [address] [place] [address] Pharmacist Internal Medicine 11/03/22 documented as of this encounter
--- OUTSIDE RECORDS SUMMARY | 2024-05-24 11:17 | XMS_ITS | Encounter Summary ---
Author Organization [employer] Address 75 [facility] 7t [place] [address] Care Team Providers Care Child Caregiver Name Role Phone Angelique Grace DO Primary Care Provider [phone]- [phone] DelCastillo clements PharmD Unavailable Unavail able Yu Busby PharmD Unavailable [phone] Reason for Visit * Reason Comments Med Refill Encounter Details Date Type Department Care Team (Late st Contact Info) Description 06/02/2022 Refill [facility] MEDICINE 230 [place] [address] Yulisa Cedillo MD [address] [place] [address] Primary hypertension Social History Tobacco Use Types [...] Description 05/29/2024 2:00 PM EDT Medication Management [facility] MEDICINE 230 [place] [address] PuiaDarrynYu, PharmD [address] [place] [address] 07/27/2024 11:00 AM EDT Office Visit [facility] [place] [address] Angelique Grace DO [address] [facility] [place] [address] documented as of this encounter Visit Diagnoses Diagnosis Primary hypertension Unspecified essential hypertension documented in this encounter Care Teams Child Caregiver Relationship Specialty Start Date End Date Angelique Grace DO [address] [facility] [place] [place] [address] PCP - General Family Medicine 03/14/18 Castillo Pradhan, PharmD [address] [place] [address] Pharmacist Internal Medicine 07/22/22 11/02/22 Yu Busby, ChristieD [address] [place] [address] Pharmacist Internal Medicine 11/03/22 documented as of this encounter
--- OUTSIDE RECORDS SUMMARY | 2024-05-24 11:17 | XMS_ITS | Encounter Summary ---
Author Organization [employer] Address 75 [facility] 7t [place] [address] Care Team Providers Care Housing Case Manager Name Role Phone Angelique Grace DO Primary Care Provider DelCastillo clements PharmD Unavailable Unavail able Yu Busby PharmD Unavailable Encounter Details Date Type Department Care Team (Late st Contact Info) Description 03/02/2022 Orders Only [facility] PEDS [address] [place] [address] Angelique Soler LPN Social History Tobacco Use [...] 05/29/2024 2:00 PM EDT Medication Management [facility] MEDICINE [address] [place] [address] Jamesia, Yu, PharmD [address] [place] [address] 07/27/2024 11:00 AM EDT Office Visit [facility] MEDICINE [address] [place] [address] Angelique Grace DO [address] [place] [address] documented as of this encounter Visit Diagnoses Not on filedocumented in this encounter Care Teams Housing Case Manager Relationship Specialty Start Date End Date Angelique Grace DO [address] [place] [address] PCP - General Family Medicine 03/14/18 Castillo Pradhan, ChristieD [address] [place] [address] Pharmacist Internal Medicine 07/22/22 11/02/22 Yu Busby PharmD 230 [place] [address] Pharmacist Internal Medicine 11/03/22 documented as of this encounter
--- OUTSIDE RECORDS SUMMARY | 2024-05-24 11:17 | XMS_ITS | Encounter Summary ---
Author Organization [employer] Address [address] [facility] 7t [place] [address] Care Team Providers Care Investment Recovery Technician Name Role Phone Angelique Grace DO Primary Care Provider [phone] Yu Busby PharmD Unavailable [phone] Reason for Visit * Reason Onset Date Comments Nurse Triage 09/08/2023 Encounter Details Date Type Department Care Team ([facility] st Contact Info) Description 09/08/2023 Telephone [facility] [address] [place] [address] Angelique Grace DO 230 [place] [address] Nurse Triage Social History Tobacco Use Types [...] Miscellaneous Notes * Telephone Encounter - Ioana CerdaANNALISA rivera - 09/08/2023 3:58 PM EDT Triage [...] accepted this outcome Please contact pt at [phone] (trademark affixer) documented in this encounter Plan of Treatment Upcoming Encounters Date Type Department Care Team (Late st Contact Info) Description 05/29/2024 2:00 PM EDT Medication Management [address] [address] Yu Busby PharmD 230 [place] [address] 07/27/2024 11:00 AM EDT Office Visit [facility] [address] [place] [phone] Angelique Grace DO 230 [place] [address] documented as of this encounter Goals Goal [...] documented as of this encounter Care Teams Investment Recovery Technician Relationship Specialty Start Date End Date Angelique Grace DO 230 [place] [address] PCP - General Family Medicine 03/14/18 Yu Busby PharmD 230 [place] [address] Pharmacist Internal Medicine 11/03/22 documented as of this encounter
--- OUTSIDE RECORDS SUMMARY | 2024-05-24 11:17 | XMS_ITS | Encounter Summary ---
Author Organization [employer] Address [address] [facility] 7t [place] [address] Care Team Providers Care Flow Worker Name Role Phone Angelique Grace DO Primary Care Provider [phone]- [phone] Yu Busby PharmD Unavailable [phone] Reason for Visit * Reason Onset Date Comments Referral 08/30/2023 Encounter Details Date Type Department Care Team (Late st Contact Info) Description 08/30/2023 Telephone [facility] [address] [place] [address] Angelique Grace DO [address] [place] [address] Referral Social History Tobacco Use Types Packs/Day [...] referral for Cosmetic Eyelid Surgery how ever sign writer letterer or painter does see anything in chart documented in this encounter Plan of Treatment Upcoming Encounters Date Type Department Care Team (Late st Contact Info) Description 05/29/2024 2:00 PM EDT Medication Management [facility] MEDICINE [address] [place] [phone] Yu Busby PharmD [address] [place] [address] 07/27/2024 11:00 AM EDT Office Visit [facility] [address] [place] [address] Angelique Grace DO [address] [place] [address] documented as of this encounter Goals Goal [...] documented as of this encounter Care Teams Flow Worker Relationship Specialty Start Date End Date Angelique Grace DO [address] [place] [address] PCP - General Family Medicine 03/14/18 Yu Busby PharmD [address] [place] [address] Pharmacist Internal Medicine 11/03/22 documented as of this encounter
--- OUTSIDE RECORDS SUMMARY | 2024-05-24 11:17 | XMS_ITS | Encounter Summary ---
Author Organization [employer] Address [address] [facility] 7t [place] [address] Care Team Providers Care Field Operations Technician Name Role Phone Angelique Grace DO Primary Care Provider [phone]- [phone] Yu Busby PharmD Unavailable [phone] Reason for Visit * Reason Onset Date Comments Care Coordination 05/09/2024 C3[facility] initial a ssessment/ enrollment Encounter Details Date Type Department Care Team ([facility] st Contact Info) Description 05/09/2024 Telephone [facility] MED & PEDS [address] [place], [place] [phone] Angelique Grace DO 230 [place] [address] Care Coordination ([facility] initial assessment/ enrollment) Social History Tobacco Use Types Packs/Day Years [...] encounter Miscellaneous Notes * Telephone Encounter - Elaine Ayala RN - 05/09/2024 2:57 PM EST ENDY Ayala RN placed outbound call to patient for agreed upon time for initial assessment for enrollment into Adult Care Management Program. Patient's name, , and address were verified. Pt states she has an appointment with endocrinology this Fri for DM. Pt states she gets weekly injection for DM management, but BG is constantly elevated. CM educated pt on low carb, low sugar diet and on signs and symptoms to seek immediate medical attention. Pt advised to go to appointment with her BG readings and inform endo about elevated BG readings. Pt states she has a form of transportation toall her appointments and has enough food to cover her for the month and is up to date with utility and rent. Pt states she has seen the medical accounts receivable specialist and the dentist within 12 months. Pt states she checks her BG daily but occasionally checks her BP which has always been normal. Pt denies pain at this time. According to pt, she sees a therapist twice a month for depression and anxiety or SI and has been effective. Pt denies depression and anxiety at this time. Pt states she feels safe in her home and denies drinking, smoking or taking any illegal drugs. Pt states she has a SALES AGENT [employer] 2 hours a day to assist her with her ADLs. Pt states she is compliance with all her medications and denies any sideeffect or concern at this time. Care management program explained and contact information given. Patient verbalizes understanding, and able to repeat back to jingle writer. A follow up call will be placed within 10 days, patient agrees with plan. ENDY Ayala RN, provided notification to PCP Dr. Grace of patient's enrollment into C3 Complex Care Program. ENDY Ayala RN, completed care plan and sent to HIM to be scanned into the medical record. PCP notified and awaiting review from provider. documented in this encounter Plan of Treatment Upcoming Encounters Date Type Department Care Team ([facility] st Contact Info) Description 05/29/2024 2:00 PM EDT Medication Management [address] [address] PuiaDarrynYu, PharmD [address] [place] [address] 07/27/2024 11:00 AM EDT Office Visit [address] [address] Angelique Grace DO [address] [place] [phone] documented as of this encounter Goals Goal [...] documented as of this encounter Care Teams Field Operations Technician Relationship Specialty Start Date End Date Angelique Grace DO [address] [place] [address] PCP - General Family Medicine 03/14/18 Yu Busby, Radha [address] [place] [address] Pharmacist Internal Medicine 11/03/22 documented as of this encounter
--- OUTSIDE RECORDS SUMMARY | 2024-05-24 11:17 | XMS_ITS | Encounter Summary ---
Author Organization [employer] Address [address] [place] [address] 7[address] [place] [address] Care Team Providers Care Government Operations Consultant Name Role Phone Angelique Grace DO Primary Care Provider DelCastillo clements PharmD Unavailable Unavail able Yu Busby PharmD Unavailable [phone] Encounter Details Date Type Department Care Team (Late st Contact Info) Description 02/23/2022 [facility] Only [facility] 230 [place] [address] Angeliuqe Grace DO 230 [place] [address] Social History Tobacco Use Types Packs/Day Years [...] Description 05/29/2024 2:00 PM EDT Medication Management [facility] [address] [place] [phone] Yu Busby, PharmD [address] [place] [address] 07/27/2024 11:00 AM EDT Office Visit [facility] [address] [place] [address] Angelique Grace DO [address] [place] [address] documented as of this encounter Visit Diagnoses Not on filedocumented in this encounter Care Teams Government Operations Consultant Relationship Specialty Start Date End Date Letty GraceniferDO [address] [place] [address] PCP - General Family Medicine 03/14/18 Castillo Pradhan, ChristieD [address] [place] [address] Pharmacist Internal Medicine 07/22/22 11/02/22 Yu Busby PharmD [address] [place] [address] Pharmacist Internal Medicine 11/03/22 documented as of this encounter
--- OUTSIDE RECORDS SUMMARY | 2024-05-24 11:17 | XMS_ITS | Encounter Summary ---
Author Organization [employer] Address [address] [facility] 7t [place] [address] Care Team Providers Care Embedded Firmware Engineer Name Role Phone Angelique Grace DO Primary Care Provider [phone] Yu Busby PharmD Unavailable [phone] Reason for Visit * Reason Comments Care Coordination Outreach Encounter Details Date Type Department Care Team (Latest Contact Info) Description 05/23/2024 Patient Outreach [facility] P[facility]S [address] [place], [place] [phone] Angelique Grace DO 230 [facility] [place] [address] Care Coordination (Outreach) Social History Tobacco Use [...] encounter Progress Notes * Dolores Hood - 05/23/2024 10:12 AM EDT CHW Dolores Hood placed outbound call to patient for follow up call on SDOH needs. No answer at this time. LVM introducing herself from [facility] CM Department. Requested call back. CHW reinforced direct contact information or CM for any additional questions or concerns and extended clinic hours on Mondays and Wednesdays, and Walk-In Urgent Care Located in [facility]. Patient provided with after-hours line for [facility], , which offer night timetriage service and option to transfer to banker mason provider if needed. CHW will attempt another follow up call within 10 days. documented in this encounter Plan of Treatment Upcoming Encounters Date Type Department Care Team (Late st Contact Info) Description 05/29/2024 2:00 PM EDT Medication Management [facility] MED[facility] [address] [place] [phone] Yu Busby, PharmD 230 [place] [address] 07/27/2024 11:00 AM EDT Office Visit [facility] [address] [place] [phone] Angelique Grace DO [address] [place] [address] documented as of this encounter Goals Goal [...] documented as of this encounter Care Teams Embedded Firmware Engineer Relationship Specialty Start Date End Date Angelique Grace DO [address] [place] [address] PCP - General Family Medicine 03/14/18 Yu Busby PharmD [address] [place] [address] Pharmacist Internal Medicine 11/03/22 documented as of this encounter
--- OUTSIDE RECORDS SUMMARY | 2024-05-24 11:17 | XMS_ITS | Encounter Summary ---
Author Organization [email or web address] Address [address] [facility] 7t [place] [address] Care Team Providers Care General Intern Name Role Phone Angelique Grace DO Primary Care Provider [phone] Yu Busby PharmD Unavailable [phone] Encounter Details Date Type Department Care Team (Latest Contact Info) Description 05/17/2024 Travel Social History Tobacco Use Types Packs/Day Years [...] Description 05/29/2024 2:00 PM EDT Medication Management [facility]INE [address] [place] [phone] PuiaYu, PharmD [address] [place] [address] 07/27/2024 11:00 AM EDT Office Visit [address] [address] Angelique Grace DO [address] [place] [address] documented as of this encounter Goals Goal Patient Goal Type Associated Problems Recent Progress Patient-Stated? Author Smoking cessation General No JamesiaDarrynYu, PharmD Hemoglobin A1c < 7 Result Component 7.3( 2:54 PM EST) No DelCastillo clements, PharmD Record your blood sugar as directed Result Component No PuiaDarrynYu, PharmD documented as of this encounter Visit Diagnoses Not on filedocumented in this encounter Additional Health Concerns Assessment Noted Time PHQ-9 Depression Total Score: 0 06/09/19 23 11:27 AM EDT documented as of this encounter Care Teams General Intern Relationship Specialty Start Date End Date Angelique Grace DO [address] [place] [phone] PCP - General Family Medicine 03/14/18 PuiaDarrynYu, PharmD [address] [place] [phone] Pharmacist Internal Medicine 11/03/22 documented as of this encounter
== END ==
LOC: HO.NUCMED 09:31
PROVIDERS: PCP Family Medicine; Visit Provider Student in an Organized Health Care Education/Training Program
DX: E05.90 Thyrotoxicosis, unspecified without thyrotoxic crisis or storm (principal)
CPT/HCPCS: 78014; A9512; A9516

== ENCOUNTER → 2024-05-24 09:33 | Outpatient (BNV) | payer MEDICAID, SELFPAY | PROVIDERS: PCP Family Medicine; Visit Provider Radiology Diagnostic Radiology | DX: E05.90 Thyrotoxicosis, unspecified without thyrotoxic crisis or storm (principal) | CPT/HCPCS: 78014 ==

== ENCOUNTER 2024-06-05 16:49 | Outpatient (REF) | payer MEDICAID, SELFPAY | END 2024-06-05 16:50 | disposition home or self-care (01) | LOC: HO.HHCLNP 16:49 | PROVIDERS: Visit Provider Family Medicine | DX: J02.9 Acute pharyngitis, unspecified (principal) | CPT/HCPCS: 87070 ==

== ENCOUNTER 2024-07-04 12:04 | Outpatient (REF) | payer MEDICAID, SELFPAY ==
[2024-07-04 13:39] LABS: Estimated Average Glucose 180 mg/dL; Hemoglobin A1C 230.6355 umol/L; Hemoglobin A1c % 7.9 % (<6.0); Total Hemoglobin (HGBA1C) 3639.1079 umol/L
[2024-07-04 13:51] LABS: Alanine Aminotransferase 44 U/L (0-31); Albumin Level 4.3 g/dL (3.5-5.0); Alkaline Phosphatase 81 U/L (39-117); Anion Gap 12 (12-20); Aspartate Amino Transferase 32 U/L (5-31); Bilirubin Direct < 0.2 mg/dL (0.0-0.5); Bilirubin Total 0.2 mg/dL (0.0-1.0); Blood Urea Nitrogen 19 mg/dL (9-16); Calcium 9.6 mg/dL (8.4-10.2); Carbon Dioxide 26 mmol/L (22-29); Chloride 106 mmol/L (96-108); Cholesterol 169 mg/dL (<200); Estimated Glomerular Filt Rate > 60; Glucose Random 163 mg/dL (60-115); HDL Cholesterol 59 mg/dL (>40); Hematocrit 43.3 % (37.0-47.0); Hemoglobin 14.1 g/dl (12.0-16.0); LDL Cholesterol Calculated 91 mg/dL (<100); Mean Corpuscular HGB Conc 32.6 g/dl (31.0-35.0); Mean Corpuscular Hemoglobin 29.8 pg (27.0-33.0); Mean Corpuscular Volume 91.5 fL (80.0-98.0); Mean Platelet Volume 11.4 fL (9.4-12.3); Platelet Count 211 X10*3/uL (160-400); Potassium 4.1 mmol/L (3.3-5.1); Red Blood Count 4.73 X10*6/uL (4.20-5.50); Red Cell Distribution Width 13.1 % (11.0-16.0); Sodium 140 mmol/L (135-145); Total Protein 7.9 g/dL (6.5-8.0); Triglycerides 97 mg/dL (<150); White Blood Count 5.2 X10*3/uL (4.8-10.8)
[2024-07-04 14:15] LABS: Thyroid Stimulating Hormone 0.23 uIU/mL (0.32-4.0); Vitamin D 25-OH Total 54.8 ng/mL (>30)
--- OUTSIDE RECORDS SUMMARY | 2024-07-04 14:28 | XMS_ITS | Encounter Summary ---
Author Organization [employer] Address [address] [facility] 7t [place] [address] Care Team Providers Care Field Auto Appraiser Name Role Phone Angelique Grace DO Primary Care Provider [phone] Yu Busby PharmD Unavailable [phone] Reason for Visit * Reason Comments Med Refill Encounter Details Date Type Department Care Team ([facility] st Contact Info) Description 01/05/2023 Refill [facility] [address] [place] [address] Shea Balderas MD [address] [place] [address] Social History Tobacco Use Types Packs/Day Years [...] Care Team (Late st Contact Info) Description 07/17/2024 10:40 AM EDT Office Visit [facility] OPTOMETRY [address] [place] [address] 07/27/2024 11:00 AM EDT Office Visit [facility] MEDICINE [address] [place] [address] Angelique Grace DO 230 [place] [address] 08/14/2024 1:00 PM EDT Medication Management [facility] [address] [place] [address] PuiaYu, PharmD 230 [place] [address] documented as of this encounter Goals Goal Patient Goal Type Associated Problems Recent Progress Patient-Stated? Author Smoking cessation General No Puia, Yu, PharmD Hemoglobin A1c < 7 Result Component 7.9( 12:07 PM EDT) No DelCastillo clements, PharmD Record your blood sugar as directed Result Component No Puia Yu, PharmD documented as of this encounter Visit Diagnoses Not on filedocumented in this encounter Additional Health Concerns Assessment Noted Time PHQ-9 Depression Total Score: 0 06/09/19 23 11:27 AM EDT documented as of this encounter Care Teams Field Auto Appraiser Relationship Specialty Start Date End Date Angelique Grace DO [address] [place] [address] PCP - General Family Medicine 03/14/18 Yu Busby, ChristieD [address] [place] [address] [place] [address] Pharmacist Internal Medicine 11/03/22 documented as of this encounter
--- OUTSIDE RECORDS SUMMARY | 2024-07-04 14:28 | XMS_ITS | Encounter Summary ---
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 Name Role Phone Angelique Grace DO Primary Care Provider [phone] Yu Busby PharmD Unavailable [phone] Reason for Visit * Reason Comments Med Refill Encounter Details Date Type Department Care Team ([facility] st Contact Info) Description 02/14/2023 Refill [facility] [address] [place] [address] Yulisa Cedillo MD [address] [place] [address] Primary hypertension Social History Tobacco Use Types [...] Description 07/17/2024 10:40 AM EDT Office Visit [facility] OPTOMETRY [address] [place] [address] 07/27/2024 11:00 AM EDT Office Visit [facility] MED[facility] [address] [place] [address] Angelique Grace DO [address] [place] [address] 08/14/2024 1:00 PM EDT Medication Management [facility] [address] [place] [address] PuiaYu, PharmD [address] [place] [address] documented as of this encounter Goals Goal Patient Goal Type Associated Problems Recent Progress Patient-Stated? Author Smoking cessation General No PuiaDarrynYu, PharmD Hemoglobin A1c < 7 Result Component 7.9( 12:07 PM EDT) No DellogCastillo toledo, PharmD Record your blood sugar as directed Result Component No Puia Yu, PharmD documented as of this encounter Visit Diagnoses Diagnosis Primary hypertension Unspecified essential hypertension documented in this encounter Additional Health Concerns Assessment Noted Time PHQ-9 Depression Total Score: 0 06/09/19 23 11:27 AM EDT documented as of this encounter Care Teams Optical Goods Drilling Machine Operator Relationship Specialty Start Date End Date Angelique Grace DO [address] [place] [address] PCP - General Family Medicine 03/14/18 Yu Busby, ChristieD [address] [place] [address] [place] [address] Pharmacist Internal Medicine 11/03/22 documented as of this encounter
--- OUTSIDE RECORDS SUMMARY | 2024-07-04 14:28 | XMS_ITS | Clinical Summary ---
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 palpitations, Altered Heart Rate Oxycodone Vomiting 03/31/2010 Medications naloxone (Narcan) 4 mg/0.1 mL nasal spray spray 0.1 milliliter by intranasal route in 1 nostril may repeat dose every 2-3 minutes as needed alternating nostrils with each dose 021 Active omega-3 (Fish Oil) 1000 MG capsule Take 1 capsule by mouth 2 times daily. 022 Active E-400 180 MG (400 UNIT) capsule take 2 capsules by oral route every day at bedtime 022 Active Blood Glucose Monitoring Suppl (FreeStyle Lite) deviceIndications :Type 2 diabetes mellitus without complication, with long-term current use of insulin ([facility]/HCC) Inject 1 each under the skin 3 times daily. Use to test blood sugar three times daily, as directed 1 each 024 Active busPIRone (Buspar) 15 MG tablet Take 1 tablet by mouth 2 times daily. Active escitalopram (Lexapro) 20 MG tablet Take 10 mg by mouth in the morning. 024 Active omeprazole (PriLOSEC) [address] capsule TAKE ONE CAPSULE BY MOUTH TWICE A DAY BEFORE BREAKFAST AND SUPPER 180 capsule 1 024 Active Diclofenac Sodium 1 % gelIndications:Pa in APPLY 2 GRAMS TOPICALLY FOUR TIMES A DAY TO THE AFFECTED AREA(S) IF NEEDED FOR PAIN 100 g 3 024 Active ascorbic acid (Vitamin C) 250 MG tablet TAKE 1 TABLET BY MOUTH TWICE A DAY WITH FERROUS SULFATE 180 tablet 1 024 Active amLODIPine (Norvasc) 5 MG tabletIndications :Primary hypertension TAKE 1 & 1/2 TABLETS BY MOUTH EVERY DAY 135 tablet 3 024 Active Ketotifen Fumarate 0.035 % solution Administer 1 drop into affected eye(s) if needed in the morning and at bedtime (itching). 10 mL 3 024 Active meloxicam (Mobic) 15 MG tablet Take 1 tablet (15 mg) by mouth if needed each day for moderate pain or mild pain. 30 tablet 2 024 2024 Active Procto-Med HC 2.5 % rectal cream apply by topical route 4 times every day to the affected area(s) as needed for Hemorrhoids 28 g 2 024 Active Aspirin Low Dose 81 MG EC tabletIndications :Type 2 diabetes mellitus without complication, with long-term current use of insulin (CMS/[facility]) TAKE ONE TABLET BY MOUTH EVERY MORNING 90 tablet 3 025 Active butalbital-acetam inophen-caffeine 50-325-40 MG tablet TAKE ONE TABLET BY MOUTH EVERY 4 HOURS NEEDED. MAX 2 TABLETS PER 24 HOURS 20 tablet 1 Active cholecalciferol (Vitamin D-3) 50 MCG (1999 UT) tabletIndications :Vitamin D deficiency TAKE ONE TABLET BY MOUTH EVERY DAY 90 tablet 3 025 Active Alcohol Swabs padsIndications:T ype 2 diabetes mellitus without complication, with long-term current use of insulin (CMS/HCC) USE DIRECTED FOUR TIMES A DAY FOR BLOOD SUGAR TESTING AND INSULIN INJECTION 200 each 11 025 Active glucose blood (FREESTYLE LITE) test stripIndications: Type 2 diabetes mellitus without complication, with long-term current use of insulin ([facility]) Test blood sugars three times a day 100 each Active insulin pen needle (B-D ULTRAFINE III SHORT PEN) 31G X 8 mm miscIndications:T ype 2 diabetes mellitus without complication, with long-term current use of insulin ([facility]) Use once daily for insulin injection 100 each Active TRUEplus Lancets 33G miscIndications:T ype 2 diabetes mellitus without complication, with long-term current use of insulin ([facility]) Use to test blood sugar 3 time(s) daily 100 each Active lidocaine (Lidoderm) 5 % patch Apply 1-2 patches topically Once per day. Remove & discard patch within 12 hours or as directed by MD. 60 patch Active baclofen (Lioresal) 10 MG tablet Take one tablet TID PRN 60 tablet Active pregabalin (Lyrica) 100 MG capsuleIndication s:Neuropathy TAKE ONE CAPSULE BY MOUTH THREE TIMES A DAY 90 capsule 025 Active Semaglutide,0.25 or 0.5MG/DOS, (Ozempic, 0.25 or 0.5 MG/DOSE,) 2 MG/3ML solution pen-injectorIndic ations:Type 2 diabetes mellitus without complication, with long-term current use of insulin ([facility]) Inject 0.5 mg under the skin 1 (one) time per week. 3 mL 025 Active rosuvastatin (Crestor) 40 MG tabletIndications :Type 2 diabetes mellitus without complication, with long-term current use of insulin ([facility]),Other hyperlipidemia Take 1 tablet (40 mg) by mouth Once per day. 90 tablet 025 Active dapagliflozin (Farxiga) 10 MGIndications:Typ e 2 diabetes mellitus without complication, with long-term current use of insulin ([facility]/HCC) TAKE ONE TABLET BY MOUTH EVERY DAY IN THE MORNING 30 tablet 025 Active clotrimazole (Lotrimin) 1 % vaginal creamIndications: Vulvovaginal Candidiasis Insert one applicator per vagina at bedtime for 7 nights 45 g 025 Active oxyCODONE-acetami nophen (Percocet) 5-325 MG tabletIndications :Chronic bilateral low back pain, unspecified whether sciatica present Take 1 tablet by mouth every 12 (twelve) hours if needed for severe pain for up to 28 days. 56 tablet 025 2024 Active diphenhydrAMINE (BENADryl) 25 MG capsuleIndication s:Allergic rhinitis, unspecified seasonality, unspecified trigger Take 1 capsule (25 mg) by mouth if needed at bedtime for allergies. 90 capsule 025 2024 Active insulin glargine (Toujeo SoloStar) 300 UNIT/ML injectionIndicati ons:Type 2 diabetes mellitus without complication, with long-term current use of insulin (CMS/HCC) Inject 56 Units under the skin Once per day. Increase, as directed, up to a max of 66 units per day. 9 mL 5 Active cyclobenzaprine (Flexeril) 10 MG tablet Take 1 tablet (10 mg) by mouth if needed in the morning and at bedtime for muscle spasms. 60 tablet 3 025 2025 Active nystatin (Mycostatin) 906482 UNIT/GM powder Apply topically 2 times daily. 120 g 3 024 2024 insulin glargine (Toujeo SoloStar) 300 UNIT/ML injectionIndicati ons:Type 2 diabetes mellitus without complication, with long-term current use of insulin (CMS/HCC) Inject 50 Units under the skin Once per day. 15 mL 1 025 2024 Discontinued(R eorder (will not trigger notification to Pharmacy)) amoxicillin (Amoxil) 500 MG capsuleIndication s:Pharyngitis, unspecified etiology Take 1 tab po bid for 10 days 20 capsule 025 2024 Discontinued(T herapy completed) acetaminophen (Tylenol) 325 MG capsuleIndication s:Pharyngitis, unspecified etiology Take 1 capsule (325 mg) by mouth every 8 (eight) hours if needed for moderate pain or fever (fever). 30 capsule 025 2024 Discontinued(M ed list cleanup (will not trigger notification to Pharmacy)) acetaminophen (Tylenol) 325 MG tablet TOME SHANELLE TABLETA VIA ORAL CADA 8 HORAS JOSÉ SEA NECESARIO PARA EL DOLOR OR FEVER 025 2024 Discontinued(M ed list cleanup (will [...] Active Problems Problem Noted Date Diagnosed Date Pharyngitis 06/05/2024 Assessment & Plan (06/05/2024 9:57 AM EDT): -clinic picture highly suspicious for strep pharyngitis -formal culture sent to lab -amoxicillin 500mg bid for 10 days, can discontinue if strep send out is negative -droplet precautions discussed -supportive care discussed Generalized abdominal pain 03/27/2024 Assessment & Plan [...] 02/23/2023 02/24/20 Chronic gastroesophageal reflux disease 06/09/19 Tobacco dependence in remission 04/09/2022 Left leg [...] Encounters Date Type Department Care Team Description 07/04/2024 10:45 AM EDT Office Visit [facility] [place] [address] Angelique Grace DO Chronic bilateral low back pain, unspecified whether sciatica present (Primary Dx); Dyspareunia in female 07/04/2024 Travel 06/29/2024 2:00 PM EDT Telemedicine [facility] [place] [address] Yu Busby PharmD Type 2 diabetes mellitus without complication, with long-term current use of insulin ([facility]) (Primary Dx) 06/29/[address] [address] Angelique Grace DO Med Refill; Medication Question 06/28/[address] [address] Angelique Grace DO Switch to televisit 06/26/[address] [address] Angelique Grace DO Med Refill 06/26/[address] [address] Angelique Grace DO Call Back Request 06/20/2024 Patient Outreach [address] [address] Angelique Grace DO Care Coordination (C3/CM F/U) 06/18/[address] [address] Angelique Grace DO Medication Question 06/07/[address] [address] María Martinez MD Results 06/07/[address] [address] Angelique Grace DO Allergic rhinitis, unspecified seasonality, unspecified trigger 06/06/2024 Patient Outreach [facility] [place] [address] Angelique Grace DO Care Coordination (Outreach) 06/05/2024 9:40 AM EDT Office Visit [facility] [place] [address] María Martinez MD Pharyngitis, unspecified etiology 06/04/[address] [facility] [address] [place] [address] Angelique Grace DO Chronic bilateral low back pain, unspecified whether sciatica present 05/25/2024 Population Health [facility] () Department [address] [place] [phone] Provider, Population Health Generic 05/23/2024 Patient Outreach [facility] [address] [place] [address] Angelique Grace DO Care Coordination (Outreach) 05/21/[address] [facility] [place] [address] Angelique Grace DO Neuropathy 05/18/[address] [facility] [place] [address] Angelique Grace DO 05/17/[address] [facility] [address] [place] [address] [place] [address] Angelique Grace DO Recall Appt. 05/17/2024 Travel 05/14/2024 3:30 PM EST Telemedicine [facility] [place] [address] Yu Busby, ChristieD Type 2 diabetes mellitus without complication, with long-term current use of insulin ([facility]) 05/14/[address] [facility] [place] [address] Angelique Grace DO Medication Question 05/09/2024 Telephone [facility] [address] [place] [address] Angelique Grace DO Care Coordination ([facility] initial assessment/ enrollment) 05/08/2024 Patient Outreach [facility] [address] [place] [address] Angelique Grace DO Care Coordination (Outreach) 05/08/2024 Orders Only [facility] [address] [place] [address] Angelique Grace DO 05/03/[address] [facility] [address] [place] [address] Angelique Grace DO Durable Medical Equipment 05/02/2024 Patient Outreach [facility] [address] [place] [address] Angelique Grace DO Care Coordination (Outreach) 04/26/[address] [facility] [address] [place] [address] Angelique Grace DO 04/26/[address] [facility] [address] [place] [address] Angelique Grace DO Chronic right-sided low back pain without sciatica (Primary Dx) 04/24/2024 Patient Outreach [facility] [address] [place] [address] Angelique Grace DO Care Coordination (Outreach) 04/22/2024 Orders Only [facility] [address] [place] [address] Angelique Grace DO Type 2 diabetes mellitus without complication, with long-term current use of insulin (CMS/HCC) (Primary Dx) 04/22/2024 Orders Only GENERIC EXTERNAL DATA DEPARTMENT Provider, Generic External Data 04/14/[address] [facility] [address] [place] [address] Yu Busby PharmD Type 2 diabetes mellitus without complication, with long-term current use of insulin (CMS/HCC) 04/08/[address] [facility] [address] [place] [address] Angelique Grace DO Type 2 diabetes mellitus without complication, with long-term current use of insulin ([facility]); Vitamin D deficiency 04/05/[address] [facility] [address] [place] [address] Angelique Grace DO Medication Question from Last 3 Months Immunizations Name Administration [...] Date Recorded Patient Health Questionnaire-9 Score 0 07/04/2024 Patient Health Questionnaire-9 Score 0 07/04/2024 Last PHQ-9: Questionnaire Data Not on file 0 07/04/2024 Housing Stability Answer Date Recorded What is [...] Date Recorded Patient Health Questionnaire-2 Score 0 07/04/2024 Internet Access Answer Date Recorded Internet Access [...] Sign Reading Time Taken Comments Blood Pressure 136/70 07/04/2024 11:36 AM EDT Pulse 88 07/04/2024 11:36 AM EDT Temperature 36.3 ??C (97.3 ??F) 07/04/2024 11:36 AM E DT Respiratory Rate 21 07/04/2024 11:36 AM EDT Oxygen Saturation 98% 07/04/2024 11:36 AM EDT Inhaled Oxygen Concentration - - Weight 78.1 kg (172 lb 2 oz) 07/04/2024 11:36 AM EDT Height 154.9 cm (5' 1 ) 07/04/2024 11:36 AM EDT Body Mass Index 32.52 07/04/2024 11:36 AM EDT Plan of Treatment Upcoming Encounters Date Type Department Care Team (Late st Contact Info) Description 07/17/2024 10:40 AM EDT Office Visit [facility] OPTOMET[facility] [address] [place] [address] 07/27/2024 11:00 AM EDT Office Visit [facility] [address] [place] [address] Angelique Grace DO [address] [place] [address] 08/14/2024 1:00 PM EDT Medication Management [facility] [address] [place] [address] Yu Busby, PharmD [address] [place] [address] Health Maintenance Due Date Last Done Comments CT Colonography 1970 Colonoscopy 1970 Colorectal Cancer Screening 1970 FIT DNA/Cologuard 1970 FIT 1970 FOBT 1970 Sigmoidoscopy 1970 Diabetes: Foot Exam 1980 Eye Exam 1980 Diabetes: Hemoglobin A1C 10/03/2024 025, 04/17/2024, 01/06/2024, Additional history exists Diabetes: Urine Protein Screening 01/05/2025 01/06/2024, 09/29/2022, 10/22/2021, Additional history exists Mammogram 03/21/2025 03/21/2024, 05/2023, 03/10/2022, Additional history exists Alcohol/Substance Use Screening 07/04/2025 07/04/2024 Depression Screening 07/04/2025 07/04/2024, 07/05/19 Lipid Panel 07/04/2025 07/04/2024, 0207/2024, 01/06/2024, Additional history exists SDOH Screening 07/04/2025 07/04/2024 Tobacco Screening 07/04/2025 07/04/2024 Cervical Cancer Screening 04/02/2027 HPV/Cotest 04/02/2027 04/02/2022 Pap Smear 04/02/2027 04/02/2022, 09/11/2020 DTaP/Tdap/Td Vaccines (3 - Td or Tdap) 11/20/2032 11/20/2022, 03/01/2013, 01/16/1998, Additional history exists RSV Patients and Patients Aged 60 years [...] Result Component 7.9( 12:07 PM EDT) No Castillo Pradhan PharmD Record your blood sugar as directed Result Component No Yu Busby PharmD Procedures Procedure Name Priority Date/Time Associated Diagnosis Comments CBC Routine 07/04/2024 12:07 PM EDT Chronic bilateral low back pain, unspecified whether sciatica present Dyspareunia in female BASIC METABOLIC PANEL Routine 07/04/2024 12:07 PM EDT Chronic bilateral low back pain, unspecified whether sciatica present Dyspareunia in female HEMOGLOBIN A1C Routine 07/04/2024 12:07 PM EDT Chronic bilateral low back pain, unspecified whether sciatica present Dyspareunia in female HEPATIC FUNCTION PANEL Routine 07/04/2024 12:07 PM EDT Chronic bilateral low back pain, unspecified whether sciatica present Dyspareunia in female TSH Routine 07/04/2024 12:07 PM EDT Chronic bilateral low back pain, unspecified whether sciatica present Dyspareunia in female LIPID PANEL, STANDARD Routine 07/04/2024 12:07 PM EDT Chronic bilateral low back pain, unspecified whether sciatica present Dyspareunia in female VITAMIN D,25-OH,TOTAL,IA Routine 07/04/2024 12:07 PM EDT Chronic bilateral low back pain, unspecified whether sciatica present Dyspareunia in female T4, FREE Routine 07/04/2024 12:07 PM EDT Chronic bilateral low back pain, unspecified whether sciatica present Dyspareunia in female POCT URINALYSIS DIPSTICK Routine 07/04/2024 11:41 AM EDT Dyspareunia in female CULTURE, THROAT Routine 06/05/2024 10:08 AM EDT Pharyngitis, unspecified etiology POCT INFLUENZA B (ID NOW RAPID MOLECULAR) Routine 06/05/2024 9:54 AM EDT Pharyngitis, unspecified etiology POCT INFLUENZA A (ID NOW RAPID MOLECULAR) Routine 06/05/2024 9:54 AM EDT Pharyngitis, unspecified etiology POCT RAPID STREP A Routine 06/05/2024 9: 51 AM EDT Pharyngitis, unspecified etiology POCT RAPID COVID ANTIGEN Routine 06/05/2024 9:45 AM EDT Pharyngitis, unspecified etiology NM THYROID UPTAKE Routine 05/24/2024 9:3 3 AM EDT T3, TOTAL Routine 05/08/2024 10:18 AM EST [...] use of insulin ([facility]) POCT GLYCATED HEMOGLOBIN, TOTAL Routine 04/17/2024 2:54 PM EST Type 2 diabetes mellitus without complication, with long-term current use of insulin (CMS/HCC) BI MAMMOGRAM SCREENING TOMOSYNTHESIS BILATERAL Routine 03/21/2024 [...] Recently Relevant to Health Maintenance Results * Vitamin D, 25-Hydroxy, Total, Immunoassay (07/04/2024 12:07 PM EDT) Vitamin D 25-OH Total 54.8 >30 ng/mL [facility] Comment: Health Based Reference Values*< 20 ??ng/mL ??Oaqbaipkv05-58 ng/mL ??Insufficient> 30 ??ng/mL ??Sufficient*Fish PEREZ. N Engl J Med. 2007;357:266-280There is no well-established upper level of normal vitamin Dlevels. Some laboratories use 50 ng/mL as an upper limit ofnormal. However, toxicity is patient-dependent and may occurat any level. Careful correlation with the patient'spresentation is necessary and, if there is concern forvitamin D toxicity, treatment should be consideredirrespective of the serum level.Care must be taken in interpreting Vitamin D results fromdifferent laboratories and methodologies. ??Published datademonstrated that results from patients undergoinghemodialysis may show a negative bias when tested withvarious automated 25-OH vitamin D assays when compared toLC- MS/MS.When testing samples from patients whose predominant form ofVitamin D is Vitamin D2, such as patients receiving VitaminD2 supplementation, results that are subtherapeutic shouldbe confirmed with another method such as LC-MS/MS. Blood Venous blood specimen / Unknown 07/04/2024 12:07 PM EDT 07/04/2024 1:08 PM EDT us Angelique Grace DO LAB BLOOD ORDERABLES Final R esult [facility] [address] [place] [address] [phone] * CBC (07/04/2024 12:07 PM EDT) White Blood Count 5.2 4.8 - 10.8 X10*3/uL [facility] Red Blood Count 4.73 4.20 - 5.50 X10*6/uL [facility] Hemoglobin 14.1 12.0 - 16.0 g/dl [facility] Hematocrit 43.3 37.0 - 47.0 % [facility] Mean Corpuscular Volume 91.5 80.0 - 98.0 fL [facility] Mean Corpuscular Hemoglobin 29.8 27.0 - 33.0 pg [facility] Mean Corpuscular HGB Conc 32.6 31.0 - 35.0 g/dl [facility] Red Cell Distribution Width 13.1 11.0 - 16.0 % [facility] Platelet Count 211 160 - 400 X10*3/uL [facility] Mean Platelet Volume 11.4 9.4 - 12.3 fL [facility] NRBC Pct Auto 0.0 0.0 - 0.2 /100WBC [facility] NRBC Abs Auto 0.000 0.0 - 0.012 X10*3/uL [facility] Blood Venous blood specimen / Unknown 07/04/2024 12:07 PM EDT 07/04/2024 1:08 PM EDT Angelique Grace LAB BLOOD ORDERABLES Final R esult Performing Organization Address City/[facility] [address]/[facility] Co de Phone Number [facility] [address] [place] [phone] * (ABNORMAL) TSH (07/04/2024 12:07 PM EDT) Only the most recent of2 resultswithin the time period is included. Thyroid Stimulating Hormone 0.23(L) 0.32 - 4.0 uIU/mL [facility] Comment:TSH 3rd Generation ( [facility]) Blood Venous blood specimen / Unknown 07/04/2024 12:07 PM EDT 07/04/2024 1:08 PM EDT Angelique Grace LAB BLOOD ORDERABLES Final R esult Performing Organization Address City/[facility] [address]/ZIP Co de Phone Number [facility] [address] [place] [phone] * T4, Free (07/04/2024 12:07 PM EDT) Only the most recent of2 resultswithin the time period is included. Free T4 (Free Thyroxine) 0.80 0.71 - 1.85 ng/dL [facility] Blood Venous blood specimen / Unknown 07/04/2024 12:07 PM EDT 07/04/2024 1:08 PM EDT Angelique Grace LAB BLOOD ORDERABLES Final R esult Performing Organization Address City/[facility] [address]/ZIP Co de Phone Number [facility] [address] [place] [phone] * (ABNORMAL) Hemoglobin A1c (07/04/2024 12:07 PM EDT) Pathologist [facility] Hemoglobin A1c 7.9(H) <6.0 % [facility] Comment:Hemoglobin A1C Refer ence Range Adults: 4.8 - 6.0 % Non diabetic: < 6.0 % Goal: < 7.0 %Additional Action Suggested: > 8.0 %Note: Hemoglobin A1c results are invalid for patients with abnormal amounts of HbF. Blood transfusions may impact the HbA1c concentration in the patient sample. Estimated Average Glucose 180 mg/dL [facility] Comment:eAG = Estimated ave rage glucose which is %A1C expressed asaverage glucose, using the formula of the H1V-RvykdxxGrkmolx Glucose study (ADAG), Diabetes Care, Vol.31,#8,Oct. 2007 Blood Venous blood specimen / Unknown 07/04/2024 12:07 PM EDT 07/04/2024 1:08 PM EDT Angelique Nektedangelawi DO LAB BLOOD ORDERABLES Final R esult Performing Organization Address City/[facility] [address]/ZIP Co de Phone Number [facility] [address] [place] [phone] * (ABNORMAL) Hepatic Function Panel (07/04/2024 12:07 PM EDT) Only the most recent of2 resultswithin the time period is included. Bilirubin, Total 0.2 0.0 - 1.0 mg/dL [facility] Bilirubin, Direct <0.2 0.0 - 0.5 mg/dL [facility] Aspartate Amino Transferase 32(H) 5 - 31 U/L [facility] Alanine Aminotransferase 44(H) 0 - 31 U/L [facility] Total Protein 7.9 6.5 - 8.0 g/dL [facility] Albumin Level 4.3 3.5 - 5.0 g/dL [facility] Alkaline Phosphatase 81 39 - 117 U/L [facility] Blood Venous blood specimen / Unknown 07/04/2024 12:07 PM EDT 07/04/2024 1:08 PM EDT us Angelique Grace DO LAB BLOOD ORDERABLES Final R esult [facility] [address] [place], [place] [phone] * Lipid Panel, Standard (07/04/2024 12:07 PM EDT) Only the most recent of2 resultswithin the time period is included. Triglycerides 97 <150 mg/dL [facility] Comment:Desirable Triglyceri de: less than 150 mg/dLBorderline High Triglyceride 150-199 mg/dLHigh Triglyceride: 200-499 mg/dLVery High Triglyceride: greater than or equal to 5OO mg/dL Cholesterol 169 <200 mg/dL [facility] Comment:Desirable Cholestero l: less than 200 mg/dLBorderline High Cholesterol: 200-239 mg/dLHigh Cholesterol: greater than 239 mg/dL LDL Cholesterol Calculated 91 <100 mg/dL [facility] Comment:Desirable LDL: less than 100 mg/dLNear Optimal/Above Optimal LDL: 110- 129 mg/dLBorderline High LDL: 130-159 mg/dLHigh LDL: 160-189 mg/dLVery High LDL: greater than or equal to 190 mg/dL HDL Cholesterol 59 >40 mg/dL [facility] Comment:Desirable HDL: great er than 40 mg/dL Note: This HDL assay may give artificially low results in patients with liver disease. Blood Venous blood specimen / Unknown 07/04/2024 12:07 PM EDT 07/04/2024 1:08 PM EDT Angelique Grace DO LAB BLOOD ORDERABLES Final R esult Performing Organization Address City/[facility] [address]/ZIP Co de Phone Number [facility] [address] [place] [phone] * (ABNORMAL) Basic Metabolic Panel (07/04/2024 12:07 PM EDT) Sodium 140 135 - 145 mmol/L [facility] Potassium 4.1 3.3 - 5.1 mmol/L [facility] Chloride 106 96 - 108 mmol/L [facility] Carbon Dioxide 26 22 - 29 mmol/L [facility] Anion Gap 12 12 - 20 [facility] Urea Nitrogen (BUN) 19(H) 9 - 16 mg/dL [facility] Creatinine, Serum 0.69 0.5 - 1.4 mg/dL [facility] Estimated Glomerular Filt Rate >60 [facility] Comment:Chronic Kidney Disea se: Estimated GFR < 60 mL/min/1.95i1Nusqwn Kidney Disease: Estimated GFR < 15 mL/min/1.73m2 Glucose 163(H) 60 - 115 mg/dL [facility] Calcium 9.6 8.4 - 10.2 mg/dL [facility] Blood Venous blood specimen / Unknown 07/04/2024 12:07 PM EDT 07/04/2024 1:08 PM EDT Angelique Grace DO LAB BLOOD ORDERABLES Final R esult Performing Organization Address [facility] [address]/ZIP Co de Phone Number [facility] [address] [place] [address] [phone] * (ABNORMAL) POCT Urinalysis (07/04/2024 11:41 AM EDT) Color, UA Yellow Clarity, UA Clear Glucose, UA 3+ 500+++ Bilirubin, UA Negative Ketones, UA Negative Spec Grav, UA 1.015 Blood, UA Positive(A) Negative, None Detected Comment:Trace-Intact pH, UA 6.0 Protein, UA Negative Urobilinogen, UA 0.2 Leukocytes, UA Negative Negative, Rare, Trace Nitrite, UA Negative Negative, None Detected QC Media Lot # [id number] Lot# Expiration Date Urine 07/04/2024 11:4 1 AM EDT Angelique Graec DO POINT OF CARE TEST ENTER/ARETHA T ORDERABLES Final Result * Culture, Throat (06/05/2024 10:08 AM EDT) Throat Structure of anterior portion of neck / Unknown 06/05/2024 10:08 AM EDT 06/05/2024 4:50 PM EDT Comment:Throat Narrative [facility] - 06/07/2024 9:15 AM EDT Throat Culture No Group A Beta-hemolytic Streptococci isolated. Specimen Source: Throat María Martinez MD LAB MICROBIOLOGY - GENERAL ORDERABLES Final Result Performing Organization Address City/[facility] [address]/ZIP Co de Phone Number [facility] [address] [place] [phone] * Influenza B (ID NOW Rapid Molecular) (06/05/2024 9:54 AM EDT) Influenza B Negative Negative, Indeterminate [facility] Swab 06/05/2024 9:54 AM EDT María Martinez MD POINT OF CARE TEST ENTER/E DIT ORDERABLES Final Result Performing Organization Address [facility] [address]/ZIP Co de Phone Number [facility] [address] [place] [address] [phone] * Influenza A (ID NOW Rapid Molecular) (06/05/2024 9:54 AM EDT) [facility] Influenza A Negative Negative, Indeterminate [facility] Swab 06/05/2024 9:54 AM EDT María Martinez MD POINT OF CARE TEST ENTER/E DIT ORDERABLES Final Result [facility] [address] [place] [address] [phone] * POCT rapid strep A manually resulted (06/05/2024 9:51 AM EDT) [facility] Rapid Strep A Screen Negative Negative, None Detected Swab 06/05/2024 9:51 AM EDT María Martinez MD POINT OF CARE TEST ENTER/E DIT ORDERABLES Final Result * POCT Rapid COVID Ag (06/05/2024 9:45 AM EDT) [facility] Rapid COVID Ag Negative Swab 06/05/2024 9:45 AM EDT María Martinez MD POINT OF CARE TEST ENTER/E DIT ORDERABLES Final Result * NM Thyroid Uptake (05/24/2024 9:33 AM EDT) Anatomical Region Laterality Modality Head and Neck Nuclear Medicine 05/24/2024 9:33 AM EDT Narrative 05/25/2024 12:46 PM EDT ? [facility] ?[address] ?[place] [address] ?Nuclear Medicine Report ? Signed ? Patient: Neal Cappa,Ginnette ?MR#: M ?? [id number] ? : 1970 ?Acct:[id number] ? Age/Sex: 54 / F ?ADM Date: 03/13/25 ? Loc: HO.NUCMED ? Attending Dr: Aneta Leblanc MD ? Ordering Physician: Aneta Leblanc MD ?? Date of Service: 05/24/24 ?? Procedure(s): NM thyroid w uptake ?? Accession Number(s): [id number] ? cc: Angelique Grace DO; Aneta Leblanc MD ? EXAMINATION: ?? NM THYROID UPTAKE AND SCAN ? CLINICAL INFORMATION: ?? Thyrotoxicosis ? COMPARISON: ?? None available. ? TECHNIQUE: ?? Following the oral administration of 293 microcuries of I-123 sodium ?? iodide, thyroid uptake was performed and expressed as a percentage of ?? the administrated dose. Gamma scintillation camera images of the ?? thyroid in the anterior and right and left anterior oblique views were ?? obtained using a pinhole collimator following the administration of 10 ?? mCi Tc-99m pertechnetate a left antecubital vein. ? FINDINGS: ?? The uptake is 4.05% at 4 hours and 12.70% at 24 hours. ? On thyroid scan there is normal symmetric activity seen in both lobes ?? except for a mild medial bulbous appearance in the lower pole left ?? gland. No hot or cold nodules visualized. No activity visualized in the ?? upper chest. A marker was placed along the right neck. ? NM/NM thyroid w uptake ?? IMPRESSION: ?? Slightly bulbous appearing medial lower pole left gland. No hot or cold ?? nodules visualized ? Normal 24-hour radioiodine uptake. 4 thyroid radioiodine uptake is 4% ?? is just below the normal of 6-18% ? Electronically signed by: ??Chad Welch MD ??05/25/2024 12:43 PM EDT RP ? Dictated By: ?Rebekah,Chad S MD ? Signed By: ?<Electronically signed by Chad S Rebekah, MD in OV> ?05/25/24 1243 ? DD/ 0933 ? TD/TT: 05/25/24 1025 ? Technical Intern: MSM ? Procedure Note Hitesh, Image - 05/25/[address] [address] Nuclear Medicine Report Signed Patient: Ángel Maria C Lewis#: M [id number] : 1970Acct:[id number] Age/Sex: 54 / FADM Date: 05/24/24 Loc: MARITZA Attending Dr: Aneta Leblanc MD Ordering Physician: Aneta Leblanc MD Date of Service: 05/24/24 Procedure(s): NM thyroid w uptake Accession Number(s): [id number] cc: Angelique Grace DO; Aneta Leblanc MD EXAMINATION: NM THYROID UPTAKE AND SCAN CLINICAL INFORMATION: Thyrotoxicosis COMPARISON: None available. TECHNIQUE: Following the oral administration of 293 microcuries of I-123 sodium iodide, thyroid uptake was performed and expressed as a percentage of the administrated dose. Gamma scintillation camera images of the thyroid in the anterior and right and left anterior oblique views were obtained using a pinhole collimator following the administration of 10 mCi Tc-99m pertechnetate a left antecubital vein. FINDINGS: The uptake is 4.05% at 4 hours and 12.70% at 24 hours. On thyroid scan there is normal symmetric activity seen in both lobes except for a mild medial bulbous appearance in the lower pole left gland. No hot or cold nodules visualized. No activity visualized in the upper chest. A marker was placed along the right neck. NM/NM thyroid w uptake IMPRESSION: Slightly bulbous appearing medial lower pole left gland. No hot or cold nodules visualized Normal 24-hour radioiodine uptake. 4 thyroid radioiodine uptake is 4% is just below the normal of 6-18% Electronically signed by: Chad Welch MD 05/25/2024 12:43 PM EDT Dictated By: Chad Welch MD Signed By: <Electronically signed by Chad Welch MD in OV> 05/25/24 1243 DD/ 0933 TD/TT: 05/25/24 1025 Technical Intern: AKILAH [facility] External Provider IMG NM PROCEDURES Final Result * T3, Total (05/08/2024 10:18 AM EST) T3, Total 92 76 - 181 ng/dL [facility] Comment:THIS TEST WAS PERFOR MED AT:[facility] [place] [id number] SANCHEZ MD 05/08/2024 10:1 8 AM EST 05/08/2024 10:18 AM EST us Generic External Data Provider LAB BLOOD ORDERAB LES Final Result Performing Organization Address [facility]/ZIP Co de Phone Number [facility] [address] [place] [address] [phone] * (ABNORMAL) Urinalysis, Complete, with Reflex to Culture (04/22/2024 4:58 PM EST) Color Urine Yellow [facility] Appearance Urine Turbid [facility] PH 6.0 5.0 - 9.0 [facility] Glucose Urine UA >=1000(A) Negative mg/dL [facility] Urine Blood Moderate (2+)(A) Negative [facility] Specific [place] - Urine >=1.030(H) 1.005 - 1.025 [facility] Urine Protein Trace Neg-Trace mg/dL [facility] Urine Ketones Negative Negative mg/dL [facility] Nitrite Urine Negative Negative [facility] Leukocyte Esterase Urine Moderate (2+)(A) Negative [facility] RBC Urine 11-20(A) 0 - 2 /HPF [facility] Urine WBC >50(A) 0 - 5 /HPF [facility] Urine Squamous Epithelial Cell 0-2 0 - 2 /HPF [facility] Urine Bacteria Trace None Seen [facility] Hyaline Casts, Urine 0-2 0 - 2 /LPF [facility] 04/22/2024 4:58 PM EST 04/22/2024 5:06 PM EST Narrative [facility] - 04/22/2024 5:20 PM EST Urine, Clean Catch us Generic External Data Provider LAB URINE ORDERAB LES Final Result Performing Organization Address City/[facility] [address]/[facility] Co de Phone Number [facility] [address] [place] [phone] * Culture, Urine, Routine (04/22/2024 12:00 AM EST) Urine Urine specimen obtained by clean catch procedure / Unknown 04/22/2024 04/22/2024 Comment:[facility] Narrative [facility] - 04/24/2024 7:22 AM EST [...] LAB MICROBIOLOGY - GENERAL ORDERABLES Final Result [facility] [address] [place] [phone] * (ABNORMAL) POCT HGB A1C (04/17/2024 2:54 PM EST) Hemoglobin A1C 7.3(A) 4.0 - 6.0 % QC Media Lot # [id number] Blood 04/17/2024 2:54 PM EST us Angelique Grace DO POINT OF CARE TEST ENTER/ARETHA T ORDERABLES Final Result * BI Mammogram Screening Tomosynthesis Bilateral (03/21/2024 2:15 PM EST) Anatomical Region Laterality Modality Breast Bilateral Mammography 03/21/2024 2:15 PM EST Narrative 03/28/2024 9:29 AM EST ? [facility] [place] [facility] ? [address] ?[place] [address] ? Mammography Report ? Signed ? Patient: Neal Cappa,Ginnette ?MR#: M ?? [id number] ? : 1970 ?Acct:[id number] ? Age/Sex: 53 / F ?ADM Date: 03/21/24 ? Loc: HO.MAMMO ? Attending Dr: Angelique Grace DO ? Ordering Physician: Angelique Grace DO ?Results: 1N ?? egative ? Date of Service: 03/21/24 ?Follow Up: 1 Year From Orig ?? inal Mammogram ? Procedure(s): MM tomosynthesis screening BI ?? Accession Number(s): [id number] ? cc: Angelique Grace DO ? EXAMINATION: [...] ??Velia Sorensen DO ??03/28/2024 09:26 AM EST ? Dictated By: ?Velia Sorensen DO ? Signed By: ?<Electronically signed by Velia Sorensen, DO in OV> ? 03/28/24 0926 ? DD/ 1415 ? TD/TT: 03/21/24 1442 ? Technical Intern: ? Procedure Note Donhinater, Image - [facility]/28/[facility] [address] [place] [address] Mammography Report Signed Patient: Maria C LewisMR#: M [id number] : 1970Acct:[id number] Age/Sex: 53 / FADM Date: 03/21/24 Loc: HO.MAMMO Attending Dr: Angelique Grace DO Ordering Physician: Angelique Graceults: 1N egative Date of Service: 03/21/24Follow Up: 1 Year From Orig inal Mammogram Procedure(s): MM tomosynthesis screening BI Accession Number(s): [id number] cc: Angelique Grace DO EXAMINATION: MM SCREENING [...] 03/28/24 0926 DD/ 1415 TD/TT: 03/21/24 1442 Technical Intern: Angelique Grace DO IMG BI PROCEDURES Final Resu lt * Hepatitis C Antibody with Reflex to HCV, RNA, Quantitative, Real-Time PCR (01/06/2024 2:02 PM EDT) Hepatitis C Antibody Nonreactive Nonreactive [facility] Comment:Antibodies to HCV no t detected; does not exclude early acuteHCV infection. Blood Venous blood specimen / Unknown 01/06/2024 2:02 PM EDT 01/06/2024 2:02 PM EDT Angelique Grace DO LAB BLOOD ORDERABLES Final R esult [facility] [address] [place] [phone] * HIV-1/2 Antigen and Antibodies, Fourth Generation, with Reflexes (01/06/2024 2:02 PM EDT) HIV AB/AG Nonreactive Nonreactive [facility] Comment:HIV-1 p24 Ag and/or HIV-1/HIV-2 Ab not detected.A test result that is nonreactive does not exclude thepossibility of exposure to or infection with HIV-1 and/orHIV-2. Nonreactive results in this assay for individualswith prior exposure to HIV-1 and/or HIV-2 may be due toantigen and antibody levels that are below the limit ofdetection of this assay.[employer] HIV Ag/Ab Combo assay result andsupplemental assay results should be interpreted inconjunction with the patient's clinical presentation,history and other laboratory results. If the results areinconsistent with clinical evidence, additional testing issuggested to confirm the result. Blood Venous blood specimen / Unknown 01/06/2024 2:02 PM EDT 01/06/2024 2:02 PM EDT Angelique Grace DO LAB BLOOD ORDERABLES Final R esult Performing Organization Address [facility] [address]/[facility] Co de Phone Number [facility] [address] [place] [address] [phone] * Albumin, Random Urine W/Creatinine (01/06/2024 1:54 PM EDT) Creatinine, Urine 130.38 mg/dL [facility] Microalbumin Urine 24.0 mg/L [facility] Microalbum Creatinine Ratio Ur 18.4 <30 ug/mg cr [facility] Comment:Albumin/Creatinine R atio Reference Ranges: Normal: < 30 ug/mg creatinine Microalbuminuria: 30 - 300 ug/mg creatinineClinical Albuminuria: > 300 ug/mg creatinine Urine (Urine, Random) 01/06/2024 1:54 PM EDT 01/06/2024 2:50 PM EDT Angelique Grace DO LAB URINE ORDERABLES Final R esult Performing Organization Address [facility] [address]/[facility] Co de Phone Number [facility] [address] [place] [address] [phone] * Hm Pap Smear (04/02/2022) Pap Negative for intraephithelial lesion or malignancy Negative for intraephithelial lesion or malignancy, Other HPV Undetected Undetected, Indeterminate, Quantitative, Not Detected Historical Provider HEALTH MAINTENANCE Final Result from Last 3 Months or Most Recently Relevant to Health Maintenance Insurance [facility] C3 Care Teams Farmworker Bulbs Relationship Specialty Start Date End Date Angelique Grace DO [address] [place] [address] PCP - General Family Medicine 03/14/18 Yu Busby PharmD [address] [place] [address] Pharmacist Internal Medicine 11/03/22
--- OUTSIDE RECORDS SUMMARY | 2024-07-04 14:28 | XMS_ITS | Encounter Summary ---
Author Organization [employer] Address [address] [facility] 7t [place] [address] Care Team Providers Care Waistband Setter Lockstitch Name Role Phone Angelique Grace DO Primary Care Provider [phone] Yu Busby PharmD Unavailable [phone] Reason for Visit * Reason Onset Date Comments Nurse Triage 01/10/2023 Encounter Details Date Type Department Care Team ([facility] st Contact Info) Description 01/10/2023 Telephone [facility] [address] [place] [address] Angeliuqe Grace DO [address] [place] [address] Nurse Triage Social History Tobacco Use Types [...] 01/10/2023 4:01 PM EDT Triage call with [employer] [place] Therapist [place] [id number] Pt reports burning with urination which started yesterday. Urine has a foul odor, low back pain andbil leg pain. Pt is advised to come to [facility] to be seen and Pt agrees [...] accepted this outcome Please contact pt at [phone] (Zimbabwean) documented in this encounter Plan of Treatment Upcoming Encounters Date Type Department Care Team ([facility] st Contact Info) Description 07/17/2024 10:40 AM EDT Office Visit [facility] [address] [place] [address], [place] [address] 07/27/2024 11:00 AM EDT Office Visit [facility] [address] [place] [phone] Angelique Grace DO [address] [place] [address] 08/14/2024 1:00 PM EDT Medication Management [facility] [address] [place] [phone] Yu Busby PharmD [address] [place] [address] documented as of this encounter Goals Goal Patient Goal Type Associated Problems Recent Progress Patient-Stated? Author Smoking cessation General No Yu Busby PharmYusef Hemoglobin A1c < 7 Result Component 7.9( 12:07 PM EDT) No Castillo Pradhan PharmD Record your blood sugar as directed Result Component No Yu Busby PharmD documented as of this encounter Visit Diagnoses Not on filedocumented in this encounter Additional Health Concerns Assessment Noted Time PHQ-9 Depression Total Score: 0 06/09/19 23 11:27 AM EDT documented as of this encounter Care Teams Waistband Setter Lockstitch Relationship Specialty Start Date End Date Angelique Grace DO [address] [place] [phone] PCP - General Family Medicine 03/14/18 Yu Busby PharmD [address] [place] [phone] Pharmacist Internal Medicine 11/03/22 documented as of this encounter
--- OUTSIDE RECORDS SUMMARY | 2024-07-04 14:28 | XMS_ITS | Encounter Summary ---
Author Organization [employer] Address [address] [facility] 7t [place] [address] Care Team Providers Care Automatic Beading Lathe Operator Name Role Phone Angelique Grace DO Primary Care Provider [phone] Yu Busby PharmD Unavailable [phone] Reason for Visit * Reason Onset Date Comments Med Refill 01/07/2023 Encounter Details Date Type Department Care Team ([facility] st Contact Info) Description 01/07/2023 Telephone [facility] [address] [place] [address] Angelique Grace DO [address] [place] [address] Med Refill Social History Tobacco Use Types [...] capsule to be sent to [facility] documented in this encounter Plan of Treatment Upcoming Encounters Date Type Department Care Team (Late st Contact Info) Description 07/17/2024 10:40 AM EDT Office Visit [facility] OPT[facility] [address] [place] [address] 07/27/2024 11:00 AM EDT Office Visit [facility] [address] [place] [phone] Angelique Grace DO [address] [place] [address] 08/14/2024 1:00 PM EDT Medication Management [facility] [address] [place] [phone] Yu Busby PharmD [address] [place] [address] documented as of this encounter Goals Goal Patient Goal Type Associated Problems Recent Progress Patient-Stated? Author Smoking cessation General No Yu Busby, PharmD Hemoglobin A1c < 7 Result Component 7.9( 5 12:07 PM EDT) No Castillo Pradhan PharmYusef Record your blood sugar as directed Result Component No Yu Busby PharmD documented as of this encounter Visit Diagnoses Not on filedocumented in this encounter Additional Health Concerns Assessment Noted Time PHQ-9 Depression Total Score: 0 06/09/19 23 11:27 AM EDT documented as of this encounter Care Teams Automatic Beading Lathe Operator Relationship Specialty Start Date End Date Angelique Grace DO [address] [place] [address] PCP - General Family Medicine 03/14/18 Yu Busby, PharmD [address] [place] [address] Pharmacist Internal Medicine 11/03/22 documented as of this encounter
--- OUTSIDE RECORDS SUMMARY | 2024-07-04 14:29 | XMS_ITS | Encounter Summary ---
Author Organization [employer] Address [address] [facility] 7t [place] [address] Care Team Providers Care Rug Cleaner Hand Name Role Phone Sanjay Angelique DE JESUS Primary Care Provider [phone] DelCastillo clements PharmD Unavailable Unavail able Yu Busby PharmD Unavailable [phone] Reason for Visit * Reason Comments Med Refill Encounter Details Date Type Department Care Team (Late st Contact Info) Description 05/21/2022 Refill [facility] [address] [place] [address] Brent Garvin FNP Degeneration of lumbar intervertebral [...] 10:40 AM EDT Office Visit [facility] OPTOMETRY [address] [place] [address] 07/27/2024 11:00 AM EDT Office Visit [facility] [address] [place] [address] Angelique Grace DO [address] [place] [address] 08/14/2024 1:00 PM EDT Medication Management [facility] [address] [place] [address] Yu Busby PharmD [address] [place] [address] documented as of this encounter Visit Diagnoses Diagnosis Degeneration of lumbar intervertebral disc Degeneration of lumbar or lumbosacral intervertebral disc documented in this encounter Care Teams Rug Cleaner Hand Relationship Specialty Start Date End Date Angelique Grace DO [address] [place] [address] PCP - General Family Medicine 03/14/18 Castillo Pradhan PharmD [address] [place] [address] Pharmacist Internal Medicine 07/22/22 11/02/22 Yu Busby PharmD [address] [place] [phone] Pharmacist Internal Medicine 11/03/22 documented as of this encounter
--- OUTSIDE RECORDS SUMMARY | 2024-07-04 14:29 | XMS_ITS | Encounter Summary ---
Author Organization [employer] Address [address] [facility] [address] [place] [address] Care Team Providers Care Home Health Care Provider Name Role Phone Angelique Grace DO Primary Care Provider [phone] Yu Busby PharmD Unavailable [phone] Reason for Visit * Reason Onset Date Comments Nurse Triage 01/12/2024 Encounter Details Date Type Department Care Team ([facility] st Contact Info) Description 01/12/2024 Telephone [facility] [address] [place] [address] Angelique Grace DO [address] [place] [address] Nurse Triage Social History Tobacco Use Types [...] 01/12/2024 11:28 AM EDT Called pt. Via [employer]. Pt. States that she is having numbness in both hands when she sleeps at night and when she uses her tablet. Pt. States she called to make an appt. With [facility] [address] [place] [address] -Fax number [phone] or [phone] DX. Arthralgias but, they told her that [...] Description 07/17/2024 10:40 AM EDT Office Visit [facility] [address] [place] [address] 07/27/2024 11:00 AM EDT Office Visit [facility] [address] [place] [address] Angelique Grace DO [address] [place] [address] 08/14/2024 1:00 PM EDT Medication Management [facility] [address] [place] [address] Yu Busby PharmYusef [address] [place] [address] documented as of this encounter Goals Goal [...] documented as of this encounter Care Teams Home Health Care Provider Relationship Specialty Start Date End Date Angelique Grace DO [address] [place] [phone] PCP - General Family Medicine 03/14/18 Yu Busby PharmD [address] [place] [phone] Pharmacist Internal Medicine 11/03/22 documented as of this encounter
--- OUTSIDE RECORDS SUMMARY | 2024-07-04 14:29 | XMS_ITS | Encounter Summary ---
Author Organization [employer] Address [address] 7t [place] [address] Care Team Providers Care Brokerage Coordinator Name Role Phone Angelique Grace DO Primary Care Provider +1- [phone] Yu Busby PharmD Unavailable [phone] Reason for Visit * Reason Onset Date Comments Medication Question 12/15/2022 nitroglyceri n (Nitrostat) 0.4 MG SL tablet Encounter Details Date Type Department Care Team (Late st Contact Info) Description 12/15/2022 Telephone [facility] MEDICINE [address] [place] [address] Angelique Grace DO [address] [place], [place] [id number] Medication Question (nitroglycerin (Nitrostat) 0.4 MG SL [...] to Cardiology found 01/2022. Dr. Bruno # [phone] FAX [phone] * Telephone Encounter - Snow Pickard - 12/15/2022 1:51 PM EDT Tc from pt requesting status on last message . Accredited Farm Manager informed has to contact her cardiology dr whoprescribes medication . * Telephone Encounter - Aleida Celis - 12/15/2022 10:48 AM EDT Tc from patient requesting medication nitroglycerin (Nitrostat) 0.4 MG SL tablet. Patient states she is traveling to [place] due to Mom's passing on 12/09/22. Patient is afraid with crying and emotions of getting chest pain as she has in the past. She's traveling at 3 pm today. Patient denied any symptoms at this time. Patient speaks syrian. documented in this encounter Plan of Treatment Upcoming Encounters Date Type Department Care Team (Late st Contact Info) Description 07/17/2024 10:40 AM EDT Office Visit [facility] OPTOMETRY [address] [place] [address] 07/27/2024 11:00 AM EDT Office Visit [facility] MEDICINE [address] [place] [address] Angelique Grace DO [address] [place] [address] 08/14/2024 1:00 PM EDT Medication Management [facility] MEDICINE [address] [place] [address] Yu Busby, Radha [address] [place] [address] documented as of this encounter Goals Goal Patient Goal Type Associated Problems Recent Progress Patient-Stated? Author Smoking cessation General No Yu Busby PharmD Hemoglobin A1c < 7 Result Component 7.9( 5 12:07 PM EDT) No Castillo Pradhan PharmD Record your blood sugar as directed Result Component No Yu Busby PharmD documented as of this encounter Visit Diagnoses Not on filedocumented in this encounter Additional Health Concerns Assessment Noted Time PHQ-9 Depression Total Score: 0 06/09/19 23 11:27 AM EDT documented as of this encounter Care Teams Brokerage Coordinator Relationship Specialty Start Date End Date Angelique Grace DO [address] [place] [address] PCP - General Family Medicine 03/14/18 Yu Busby PharmD [address] [place] [address] Pharmacist Internal Medicine 11/03/22 documented as of this encounter
--- OUTSIDE RECORDS SUMMARY | 2024-07-04 14:29 | XMS_ITS | Encounter Summary ---
Author Organization [employer] Address [address] [facility] 7t [place] [address] Care Team Providers Care Time Clock Inspector Name Role Phone Angelique Grace DO Primary Care Provider [phone]- [phone] DelCastillo clements PharmD Unavailable Unavail able Yu Busby PharmD Unavailable [phone] Reason for Visit * Reason Onset Date Comments Call requesting 05/26/2022 Encounter Details Date Type Department Care Team ([facility] st Contact Info) Description 05/26/2022 Telephone [facility] MEDICINE [address] [place] [address] Angelique Grace DO [address] [place] [address] Call requesting Social History Tobacco Use Types [...] Master IM be used so pt. Can real estate administrative assistant her appt? * Telephone Encounter - Rosio Diaz - 05/26/2022 11:05 AM EDT Tc from pt requesting a call from the nurses pt claims that in order to get an appt at [facility]([phone]), nurse has to call make appt because facility is requiring some information in order to schedule appt. Please contact pt at [phone] documented in this encounter Plan of Treatment Upcoming Encounters Date Type Department Care Team ([facility] st Contact Info) Description 07/17/2024 10:40 AM EDT Office Visit [facility] OPTOMETRY [address] [place] [address] 07/27/2024 11:00 AM EDT Office Visit [facility] MEDICINE [address] [place] [address] Angelique Grace DO [address] [place] [address] 08/14/2024 1:00 PM EDT Medication Management [facility] MEDICINE [address] [place] [address] Yu Busby PharmD [address] [place] [place] [address] documented as of this encounter Visit Diagnoses Not on filedocumented in this encounter Care Teams Time Clock Inspector Relationship Specialty Start Date End Date Angelique Grace DO [address] [place] [address] PCP - General Family Medicine 03/14/18 Castillo Pradhan PharmD [address] [place] [address] Pharmacist Internal Medicine 07/22/22 11/02/22 Yu Busby PharmD [address] [place] [address] Pharmacist Internal Medicine 11/03/22 documented as of this encounter
--- OUTSIDE RECORDS SUMMARY | 2024-07-04 14:29 | XMS_ITS | Encounter Summary ---
Author Organization [employer] Address [address] [facility] 7t [place] [address] Care Team Providers Care Diesel Dinkey Engineer Name Role Phone Angelique Grace DO Primary Care Provider [phone]- [phone] Yu Busby PharmD Unavailable [phone] Reason for Visit * Reason Onset Date Comments Referral 08/30/2023 Encounter Details Date Type Department Care Team (Late st Contact Info) Description 08/30/2023 Telephone [facility] MEDICINE [address] [place] [address] Angelique Grace DO [address] [place] [address] Referral Social History Tobacco Use Types Packs/Day [...] referral for Cosmetic Eyelid Surgery how ever financial 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 documented in this encounter Plan of Treatment Upcoming Encounters Date Type Department Care Team (Late st Contact Info) Description 07/17/2024 10:40 AM EDT Office Visit [facility] OPTOMETRY [address] [place], [place] [phone] 07/27/2024 11:00 AM EDT Office Visit [facility] MEDICINE [address] [place] [address] Angelique Grace DO [address] [place] [address] 08/14/2024 1:00 PM EDT Medication Management [facility] MEDICINE [address] [place] [address] Yu Busby PharmD [address] [place] [address] documented as of this encounter Goals Goal [...] documented as of this encounter Care Teams Diesel Dinkey Engineer Relationship Specialty Start Date End Date Angelique Grace DO [address] [place] [address] PCP - General Family Medicine 03/14/18 Yu Busby, PharmD [address] [place] [address] Pharmacist Internal Medicine 11/03/22 documented as of this encounter
--- OUTSIDE RECORDS SUMMARY | 2024-07-04 14:29 | XMS_ITS | Encounter Summary ---
Author Organization [employer] Address [address] [facility] 7t [place] [address] Care Team Providers Care Plastic Parts Designer Name Role Phone Angelique Grace DO Primary Care Provider [phone]- [phone] Yu Busby PharmD Unavailable [phone] Reason for Visit * Reason Onset Date Comments Nurse Triage 09/08/2023 Encounter Details Date Type Department Care Team ([facility] st Contact Info) Description 09/08/2023 Telephone [facility] MEDICINE [address] [place] [address] Angelique Grace DO [address] [place] [address] Nurse Triage Social History Tobacco Use Types [...] accepted this outcome Please contact pt at [phone] (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) documented in this encounter Plan of Treatment Upcoming Encounters Date Type Department Care Team (Late st Contact Info) Description 07/17/2024 10:40 AM EDT Office Visit [facility] OPTOMETRY [address] [place], [place] [phone] 07/27/2024 11:00 AM EDT Office Visit [facility] MEDICINE [address] [place] [address] Angelique Grace DO [address] [place] [address] 08/14/2024 1:00 PM EDT Medication Management [facility] MEDICINE [address] [place] [address] Yu Busby PharmD [address] [place] [address] documented as of this encounter Goals Goal [...] documented as of this encounter Care Teams Plastic Parts Designer Relationship Specialty Start Date End Date Angelique Grace DO [address] [place] [address] PCP - General Family Medicine 03/14/18 Yu Busby PharmD [address] [place] [address] Pharmacist Internal Medicine 11/03/22 documented as of this encounter
--- OUTSIDE RECORDS SUMMARY | 2024-07-04 14:29 | XMS_ITS | Encounter Summary ---
Author Organization [employer] Address [address] [facility] 7[address] [place] [address] Care Team Providers Care Necktie Maker Name Role Phone Angelique Grace DO Primary Care Provider [phone]- [phone] Yu Busby PharmD Unavailable [phone] Reason for Visit * Reason Onset Date Comments callback requested 01/27/2024 Encounter Details Date Type Department Care Team ([facility] st Contact Info) Description 01/27/2024 Telephone [facility] MEDICINE [address] [place] [address] Angelique Grace DO [address] [place] [address] callback requested Social History Tobacco Use Types [...] has to payout of pocket , Callback [phone] documented in this encounter Plan of Treatment Upcoming Encounters Date Type Department Care Team (Late st Contact Info) Description 07/17/2024 10:40 AM EDT Office Visit [facility] OPTOMETRY [address] [place] [address] 07/27/2024 11:00 AM EDT Office Visit [facility] MEDICINE [address] [place] [address] Angelique Grace DO [address] [place] [address] 08/14/2024 1:00 PM EDT Medication Management [facility] MEDICINE [address] [place] [address] Yu Busby, ChristieD [address] [place] [address] documented as of this encounter Goals Goal [...] documented as of this encounter Care Teams Necktie Maker Relationship Specialty Start Date End Date Angelique Grace DO [address] [place] [address] PCP - General Family Medicine 03/14/18 Yu Busby PharmD [address] [place] [address] Pharmacist Internal Medicine 11/03/22 documented as of this encounter
--- OUTSIDE RECORDS SUMMARY | 2024-07-04 14:29 | XMS_ITS | Encounter Summary ---
Author Organization [employer] Address [address] [facility] 7t [place] [address] Care Team Providers Care Catcher Filter Tip Name Role Phone Angelique Grace DO Primary Care Provider [phone] Yu Busby PharmD Unavailable [phone] Reason for Visit * Reason Onset Date Comments Medication Question 05/14/2024 Encounter Details Date Type Department Care Team ([facility] st Contact Info) Description 05/14/2024 Telephone [facility] MEDICINE [address] [place] [address] Angelique Grace DO [address] [place], [place] [phone] Medication Question Social History Tobacco Use Types [...] Notes * Telephone Encounter - Jose M David - 05/14/2024 3:01 PM EST Tc from pt requesting call back to Speak with Yu. Pt states that she Currently has High Blood sugar but pt Denied Triage. She would like to Discuss her medication. Contact pt at [phone] documented in this encounter Plan of Treatment Upcoming Encounters Date Type Department Care Team (Late st Contact Info) Description 07/17/2024 10:40 AM EDT Office Visit [facility] OPTOMETRY [address] [place] [address] 07/27/2024 11:00 AM EDT Office Visit [facility] MEDICINE [address] [place] [address] Angelique Grace DO [address] [place] [address] 08/14/2024 1:00 PM EDT Medication Management [facility] MEDICINE [address] [place] [address] Yu Busby, PharmD [address] [place] [address] documented as of this encounter Goals Goal [...] documented as of this encounter Care Teams Catcher Filter Tip Relationship Specialty Start Date End Date Angelique Grace DO [address] [place] [address] PCP - General Family Medicine 03/14/18 Yu Busby PharmD [address] [place] [address] Pharmacist Internal Medicine 11/03/22 documented as of this encounter
--- OUTSIDE RECORDS SUMMARY | 2024-07-04 14:29 | XMS_ITS | Encounter Summary ---
Author Organization [employer] Address [address] [facility] 7t [place] [address] Care Team Providers Care Nurse Informatics Educator Name Role Phone Angelique Grace DO Primary Care Provider [phone] Yu Busby PharmD Unavailable [phone] Encounter Details Date Type Department Care Team (Latest Contact Info) Description 07/04/2024 Travel Social History Tobacco Use Types Packs/Day [...] 07/17/2024 10:40 AM EDT Office Visit [facility] OPTOMETRY [address] [place] [address] 07/27/2024 11:00 AM EDT Office Visit [facility] MEDICINE [address] [place] [address] Angelique Grace DO [address] [place] [address] 08/14/2024 1:00 PM EDT Medication Management [facility] MEDICINE [address] [place] [address] PuiaCorneliasa, PharmD [address] [place] [address] documented as of this encounter Goals Goal Patient Goal Type Associated Problems Recent Progress Patient-Stated? Author Smoking cessation General No Puia, Yu, PharmD Hemoglobin A1c < 7 Result Component 7.9( 12:07 PM EDT) No DellogonoCastillo, PharmD Record your blood sugar as directed Result Component No Puia, Yu, PharmD documented as of this encounter Visit Diagnoses Not on filedocumented in this encounter Additional Health Concerns Assessment Noted Time PHQ-9 Depression Total Score: 0 07/05/19 25 11:39 AM EDT documented as of this encounter Care Teams Nurse Informatics Educator Relationship Specialty Start Date End Date Angelique Grace DO [address] [place] [address] PCP - General Family Medicine 03/14/18 Yu Busby, Radha [address] [place] [address] Pharmacist Internal Medicine 11/03/22 documented as of this encounter
--- OUTSIDE RECORDS SUMMARY | 2024-07-04 14:29 | XMS_ITS | Encounter Summary ---
Author Organization [employer] Address [address] [facility] 7t [place] [address] Care Team Providers Care Ground Support Equipment Fitter Name Role Phone Angelique Grace DO Primary Care Provider [phone]- [phone] Yu Busby PharmD Unavailable [phone] Reason for Visit * Reason Comments Med Refill Encounter Details Date Type Department Care Team ([facility] st Contact Info) Description 11/03/2023 Refill [facility] MEDICINE [address] [place] [address] Angelique Grace DO [address] [place] [address] Social History Tobacco Use Types Packs/Day Years [...] Description 07/17/2024 10:40 AM EDT Office Visit [facility] OPTOMETRY [address] [place] [address] 07/27/2024 11:00 AM EDT Office Visit [facility] MEDICINE [address] [place] [address] Angelique Grace DO [address] [place] [address] 08/14/2024 1:00 PM EDT Medication Management [facility] MEDICINE [address] [place] [address] PuiaYu, PharmD [address] [place] [address] documented as of this encounter Goals Goal Patient Goal Type Associated Problems Recent Progress Patient-Stated? Author Smoking cessation General No Puia Yu, PharmD Hemoglobin A1c < 7 Result Component 7.9( 12:07 PM EDT) No DellogCastillo toledo, PharmD Record your blood sugar as directed Result Component No Puia Yu, PharmD documented as of this encounter Visit Diagnoses Not on filedocumented in this encounter Additional Health Concerns Assessment Noted Time PHQ-9 Depression Total Score: 0 06/09/19 11:27 AM EDT documented as of this encounter Care Teams Ground Support Equipment Fitter Relationship Specialty Start Date End Date Angelique Grace DO [address] [place] [address] PCP - General Family Medicine 03/14/18 Yu Busby, ChristieD [address] [place] [address] Pharmacist Internal Medicine 11/03/22 documented as of this encounter
--- OUTSIDE RECORDS SUMMARY | 2024-07-04 14:29 | XMS_ITS | Encounter Summary ---
Author Organization [employer] Address [address] [facility] 7[address] [place] [address] Care Team Providers Care Field Administrative Assistant Name Role Phone Angelique Grace DO Primary Care Provider [phone] Yu Busby PharmD Unavailable [phone] Encounter Details Date Type Department Care Team (Late st Contact Info) Description 2023 Abstract [facility] MEDICINE [address] [place] [address] Angelique Grace DO [address] [place] [address] Social History Tobacco Use Types Packs/Day Years [...] [facility] OPTOMETRY [address] [place] [address] 07/27/2024 11:00 AM EDT Office Visit [facility] MEDICINE [address] [place] [address] Angelique Grace DO [address] [place] [address] 08/14/2024 1:00 PM EDT Medication Management [facility] MEDICINE [address] [place] [address] JamesiaYu, PharmD [address] [place] [address] documented as of this encounter Goals Goal Patient Goal Type Associated Problems Recent Progress Patient-Stated? Author Smoking cessation General No PuiaCorneliasa, PharmD Hemoglobin A1c < 7 Result Component 7.9( 12:07 PM EDT) No Castillo Pradhan, PharmD Record your blood sugar as directed Result Component No Puia Yu, PharmD documented as of this encounter Visit Diagnoses Not on filedocumented in this encounter Additional Health Concerns Assessment Noted Time PHQ-9 Depression Total Score: 0 06/09/19 23 11:27 AM EDT documented as of this encounter Care Teams Field Administrative Assistant Relationship Specialty Start Date End Date Angelique Grace DO [address] [place] [address] PCP - General Family Medicine 03/14/18 Yu Busby, Radha [address] [place] [address] Pharmacist Internal Medicine 11/03/22 documented as of this encounter
--- OUTSIDE RECORDS SUMMARY | 2024-07-04 14:29 | XMS_ITS | Encounter Summary ---
Author Organization [employer] Address [address] [facility] [address] [place] [address] Care Team Providers Care Grocery Store Manager Name Role Phone Angelique Grace DO Primary Care Provider [phone]- [phone] Yu Busby PharmD Unavailable [phone] Reason for Visit * Reason Comments Med Refill Encounter Details Date Type Department Care Team ([facility] st Contact Info) Description 07/09/2023 Refill [facility] MEDICINE [address] [place] [address] Angelique Grace DO [address] [place] [address] Type 2 diabetes mellitus without complication, with long-term current use of insulin ([facility]) Social History Tobacco Use Types Packs/Day Years [...] Description 07/17/2024 10:40 AM EDT Office Visit [facility] OPTOMETRY [address] [place] [address] 07/27/2024 11:00 AM EDT Office Visit [facility] MEDICINE [address] [place] [address] Angelique Grace DO [address] [place] [address] 08/14/2024 1:00 PM EDT Medication Management [facility] MEDICINE [address] [place] [address] Yu Busby, PharmD [address] [place] [address] documented as of this encounter Goals Goal Patient Goal Type Associated Problems Recent Progress Patient-Stated? Author Smoking cessation General No Yu Busby, PharmD Hemoglobin A1c < 7 Result Component 7.9( 12:07 PM EDT) No Castillo Pradhan PharmYusef Record your blood sugar as directed Result Component No Yu Busby PharmD documented as of this encounter Visit Diagnoses Diagnosis Type 2 diabetes mellitus without complication, with long-term current use of insulin ([facility]) documented in this encounter Additional Health Concerns Assessment Noted Time PHQ-9 Depression Total Score: 0 06/09/19 11:27 AM EDT documented as of this encounter Care Teams Grocery Store Manager Relationship Specialty Start Date End Date Angelique Grace DO [address] [place] [address] PCP - General Family Medicine 03/14/18 Yu Busby PharmD [address] [place] [address] Pharmacist Internal Medicine 11/03/22 documented as of this encounter
--- OUTSIDE RECORDS SUMMARY | 2024-07-04 14:29 | XMS_ITS | Encounter Summary ---
Author Organization [employer] Address [address] [facility] 7t [place] [address] Care Team Providers Care Assembly Manager Name Role Phone Angelique Grace DO Primary Care Provider +1- [phone] Yu Busby PharmD Unavailable Reason for Referral * Consultation (Routine) - Authorized Specialty Diagnoses / Procedures Referred By Donn t Referred To Contact Optometry Diagnoses Type 2 diabetes mellitus without complication, with long-term current use of insulin (CMS/HCC) Yu Busby, PharmD [address] [place] [address] Phone: tel: fax: [facility] OPTOMETRY [address] [place] [address] Phone: tel: fax: Referral ID Status Reason Start Date Expiration Date Visits Requested Visits Authorized [id number] Authorized Consult and Treat 06/29/2024 06/29/2025 1 1 Reason for Visit * Consultation (Routine) - Authorized Specialty Diagnoses / Procedures Referred By Donn pruitt Referred To Contact Pharmacy Diagnoses Type 2 diabetes mellitus without complication, with long-term current use of insulin (CMS/HCC) Angelique Grace DO [address] [place] [address] Phone: tel: fax: Referral ID Status Reason Start Date Expiration Date Visits Requested Visits Authorized [id number] Authorized Consult and Treat 04/22/2024 04/22/2025 6 6 Encounter Details Date Type Department Care Team ([facility] st Contact Info) Description 06/29/2024 2:00 PM EDT Telemedicine [facility] MEDICINE [address] [place] [address] Yu Busby, PharmD [address] [place] [address] Type 2 diabetes mellitus without complication, with [...] Progress Notes * Yu Busby PharmD - 06/29/2024 2:00 PM EDT Pharmacy Consult Visit Type: CDTM (referral expires 01/2025) Pharmacist: Yu Busby PharmD Maria C Lewis is a 54 y.o. year old patient here for follow-up visit completed over the phone. Subjective History: General / Intake (updated 05/29/24) Allergies: is allergic to enalapril, lisinopril, atorvastatin, metronidazole, and oxycodone. Read/Write: Yes, in Amharic Recent Hospitalizations: No Social History as reported by patient: Tobacco: Past, quit ~09/2023 Alcohol: Denies, wine ~1x/yr on holidays Caffeine: Denies, frozen coffee from [employer] 1-2x/week. Trying to eliminate d/t sugar content. Illicit drugs: Denies Diet: states portion sizes/appetite are more limited w/ GLP Breakfast (11 am) - sandwich, juice Lunch (2 pm) - yogurt Dinner (biggest meal, 7-8 pm) - soup w/ egg, vegetables, some rice. Juice Dessert (10-11 pm) - cracker or cookies. Asked about switching to turkey roll ups and encouraged todo so from DM perspective. Drinks - lots of water, ~2 cups of juice/day and encouraged to limit, no soda Exercise: bikes 45 to 60 mins 2x/wk Adherence / patient self-management Uses weekly pill box for organization w/ help of PELLET MACHINE OPERATOR. Denies missed doses or removing medication d/t JESSICA. OTC med, vitamin, supplement use: vitamin E, vitamin C+Iron, and omega 3 (all on medlist) Type 2 Diabetes Regarding medication use patient reports the following: Initiated Farxiga 10 mg (increase) as per plan plan. Denies or other JESSICA. Initiated rosuvastatin 40 mg (increase) as per plan plan and denies JESSICA. Currently using Toujeo 56 units daily x3d. Reports self increasing dose by +2 unit increments over the last week (see * designations on BG log below) d/t hyperBG. Last plan/RX for Toujeo 50 units daily. Continues on Ozempic 0.5 mg weekly (personal max tolerated) and denies GI or other JESSICA. Pertinent negatives include polyuria, polydipsia, blurred vision Reports SMBG generally once daily & relayed the following values today obtained via glucometer review: Denies any occurrence of hypoBG (<70 mg/dL). Blood Glucose (mg/dL) Date Before breakfast 2 hr post dinner 06/29 132 -- 06/28 156 -- 06/27 160 -- 06/26 147 -- 06/25 144 -- 06/24 206* 105 06/23 163 -- 06/22 164 -- 06/21 117 -- increased Toujeo to 56 units this AM after obtaining this value * increased Toujeo to 54 units this AM after obtaining this value Objective History: Treatment history/considerations: PMH: T2DM, HTN, atherosclerosis of coronary artery, HLD, depression, anxiety [place] a [place]N basis [place] [facility]: last seen 04/24/24 for surgical clearance (dx nonobstructiveCAD, provider provider unsure of current statin but recommended high intensity tx). This was addressed in CDTM 02/2024 and dose was later titrated per plan 05/14/24. Medication: CGM - patient declined 12/09/22 GLP agents - (04/2024) patient requested to restart low dose Ozempic (03/2024) Ozempic 1 mg discontinued post ER visit 03/22 for GI AE (02/2024) Mounjaro 5 mg changed to Ozempic 1 mg d/t GI AE (03/2023) patient self discontinued Trulicity due to c/o of hair loss Glyburide - d/c 05/19/10 (rationale unclear) Insulin: Humalog Mix 75/25 - d/c 05/14/10 (rationale unclear) Humulin 70/30 - d/c 11/03/22 (extremes of BG) Tresiba changed to Toujeo in PCP visit 09/16/23 d/t patient complaint of blurred vision. Metformin - d/c 05/19/10 (GI AE, [facility]) Statin: (05/2024) dose of rosuvastatin increased in response to labs 05/08/24 (02/2024) pravastatin 40 mg changed to rosuvastatin 20 mg for high intensity tx & secondary prevention of ASCVD (previously) failed atorvastatin d/t muscle pain. Recent labs: Lab Results Component Value Date ALT 29 05/08/2024 AST 30 05/08/2024 LDLCHOLCAL 89 05/08/2024 TRIG 86 05/08/2024 K 4.5 03/25/2024 NA 141 03/25/2024 MICROALBCREU 18.4 01/06/2024 CREATININE 0.75 03/25/2024 EGFR >60 03/25/2024 HGBA1C 7.3 (A) 04/17/2024 HGBA1C 6.6 (H) 01/06/2024 HGBA1C 6.5 (A) 11/29/2023 HGBA1C 7.0 (H) 07/18/2023 HGBA1C 7.3 (A) 06/07/2023 HGBA1C 7.5 (H) 01/19/2023 Recent blood pressure readings: BP Readings from Last 4 Encounters: 06/05/24 (!) 144/84 05/29/24 (!) 135/90 03/27/24 135/84 01/06/24 121/78 Pulse Readings from Last 4 Encounters: 06/05/24 101 05/29/24 90 03/27/24 80 01/06/24 89 Immunizations Due: [facility] reviewed immunization records today; no vaccination gaps exist. Preferred Pharmacy: [id number] - [place] - [phone] [id number] [facility] [address] [facility] - [address] [facility] [address] Assessment/Plan: Type 2 Diabetes Pharmacologic Therapy: Farxiga 10 mg daily (max dose) Ozempic 0.5 mg subQ once weekly on Sundays (personal max tolerated) Toujeo U-300, inject 50 units subQ once daily in the morning *discrepancy exists* Note - prefers 8 mm insulin pen needles. Additional recommendations per ADA: On aspirin: Yes, for secondary prevention On statin: Yes, high intensity w/ rosuvastatin 40 mg (intensified 05/2024, repeat labs in 1-3 mo) On ACEI/ARB: No, not indicated based on BP & micoralbumin results Dental Exam in the past 6 mo: Yes, reports last seen 11/2023 (outside office) Eye Exam in the past 12 mo: No, last seen 05/11/23 ([place]). She is due for NUZHAT but would like to be seen at [facility] eye care going forward. Referral issued today 06/29/24 at her request. Goals of therapy: Per the ADA Standards of Medical Care in Diabetes Achieve A1c of < 7.0% while also minimizing episodes of hypoglycemia Plan: Continue current regimen including Toujeo 56 units daily w/o change for now; recent FBGs approximate goal with insulin self titration. Instructed patient if FBGs continue >140 mg/dL w/o hypoBG (<70 mg/dL) to self titrate +2 units not more frequently than every 7 days d/t concern for excessivetitration/hypoBG. She confirmed understanding and is agreeable to this plan. New Toujeo RX issued with titration parameters. Patient to follow up with PCP in 4 wks & CDTM in ~6 wks for repeat A1c & next steps. Education: Healthy diet and lifestyle. Discussed role of A1c monitoring, A1c and SMBG goals Reviewed signs, symptoms and treatments of hypoglycemia to which patient confirmed understanding. documented in this encounter Plan of Treatment Upcoming Encounters Date Type Department Care Team (Late st Contact Info) Description 07/17/2024 10:40 AM EDT Office Visit [facility] OPTOMETRY [address] [place] [address] 07/27/2024 11:00 AM EDT Office Visit [facility] MEDICINE [address] [place] [address] Angelique Grace DO [address] [place] [address] 08/14/2024 1:00 PM EDT Medication Management [facility] MEDICINE [address] [place] [address] Yu Busby PharmD [address] [place] [address] Scheduled Referrals Name Type Priority Associated Diagnoses Orde r Schedule Referral to [facility] Eye Care Outpatient Referral Routine Type 2 diabetes mellitus without complication, with long-term current use of insulin ([facility]/HCC) Expected: 06/29/2024 (Approximate), Expires: 06/29/2025 documented as of this encounter Goals Goal [...] complication, with long-term current use of insulin (CMS/[facility])- Primary documented in this encounter Additional Health Concerns Assessment Noted Time PHQ-9 Depression Total Score: 0 06/09/19 11:27 AM EDT documented as of this encounter Care Teams Assembly Manager Relationship Specialty Start Date End Date Angelique Grace DO [address] [place] [address] PCP - General Family Medicine 03/14/18 Yu Busby PharmD [address] [place] [address] Pharmacist Internal Medicine 11/03/22 documented as of this encounter
--- OUTSIDE RECORDS SUMMARY | 2024-07-04 14:29 | XMS_ITS | Encounter Summary ---
Author Organization [employer] Address [address] [place] [address] [address] [place] [address] Care Team Providers Care Radiography Technician Name Role Phone Angelique Grace DO Primary Care Provider DelCastillo clements PharmD Unavailable Unavail able Yu Busby PharmD Unavailable Encounter Details Date Type Department Care Team (Late st Contact Info) Description 02/23/2022 [facility] Only [place] [facility] Information Management [address] [place] [address] Angelique Grace DO [address] [place] [address] Social History Tobacco Use Types Packs/Day Years [...] 07/17/2024 10:40 AM EDT Office Visit [facility] OPTOMETRY [address] [place], [place] [phone] 07/27/2024 11:00 AM EDT Office Visit [facility] MEDICINE [address] [place] [address] Angelique Grace DO [address] [place] [address] 08/14/2024 1:00 PM EDT Medication Management [facility] MEDICINE [address] [place] [address] Yu Busby PharmD [address] [facility] [place] [address] documented as of this encounter Visit Diagnoses Not on filedocumented in this encounter Care Teams Radiography Technician Relationship Specialty Start Date End Date Angelique Grace DO [address] [facility] [place] [address] PCP - General Family Medicine 03/14/18 Castillo Pradhan, ChristieD [address] [place] [address] Pharmacist Internal Medicine 07/22/22 11/02/22 Yu Busby, Radha 230 [facility] [place] [address] Pharmacist Internal Medicine 11/03/22 documented as of this encounter
--- OUTSIDE RECORDS SUMMARY | 2024-07-04 14:29 | XMS_ITS | Encounter Summary ---
Author Organization [employer] Address [address] [facility] 7t [place] [address] Care Team Providers Care Assistant Film Editor Name Role Phone Angelique Grace DO Primary Care Provider [phone] Yu Busby PharmD Unavailable [phone] Reason for Visit * Reason Onset Date Comments Switch to televisit 06/28/2024 Encounter Details Date Type Department Care Team ([facility] st Contact Info) Description 06/28/2024 Telephone [facility] MEDICINE [address] [place] [address] Angelique Grace DO [address] [place] [address] Switch to televisit Social History Tobacco Use Types Packs/Day Years [...] encounter Miscellaneous Notes * Telephone Encounter - Mily Lal - 06/28/2024 10:51 AM EDT Tc from pt stating doesn't have transportation and would like to change the appointment to a televisit. Pt states increased insulin dose on his own decision. Appointment today at 1:30 pm with Yu Busby. [phone] documented in this encounter Plan of Treatment Upcoming Encounters Date Type Department Care Team (Late st Contact Info) Description 07/17/2024 10:40 AM EDT Office Visit [facility] OPTOMETRY [address] [place], [place] [phone] 07/27/2024 11:00 AM EDT Office Visit [facility] MEDICINE [address] [place] [address] Angelique Grace DO [address] [place], [place] [phone] 08/14/2024 1:00 PM EDT Medication Management [facility] MEDICINE [address] [place] [address] Yu Busby, PharmD [address] [place], [place] [phone] documented as of this encounter Goals Goal [...] documented as of this encounter Care Teams Assistant Film Editor Relationship Specialty Start Date End Date Angelique Grace DO [address] [place] [address] PCP - General Family Medicine 03/14/18 Yu Busby PharmD [address] [place] [address] Pharmacist Internal Medicine 11/03/22 documented as of this encounter
--- OUTSIDE RECORDS SUMMARY | 2024-07-04 14:29 | XMS_ITS | Encounter Summary ---
Author Organization [employer] Address [address] [facility] 7t [place] [address] Care Team Providers Care Lens Coating Technician Name Role Phone Angelique Grace DO Primary Care Provider [phone] Yu Busby PharmD Unavailable [phone] Reason for Visit * Reason Onset Date Comments Med Refill 06/29/2024 Medication Question 06/29/2024 Encounter Details Date Type Department Care Team ([facility] st Contact Info) Description 06/29/2024 Telephone [facility] MEDICINE [address] [place] [address] Angelique Grace DO [address] [place] [address] Med Refill; Medication Question Social History Tobacco Use Types [...] encounter Miscellaneous Notes * Telephone Encounter - Daja Browne RN - 06/29/2024 3:15 PM EDT TC placed to patient [phone] using [employer] #ID [id number] regarding below message. Pt informed RN that she was on cyclobenzaprine for muscle spasms which was originally ordered by Karlene Wheeler NP on 12/30/23and the end date for the medication was 04/17/24. RN informed pt that she needs to see her PCP for a office visit to see if the medication is still needed. RN scheduled pt a appt for 07/03/24 at 1115 amwith her PCP. RN advised patient to keep the appt. Pt verbalized understanding. Pt to F/U PRN. * Telephone Encounter - Jose M Hernandez - 06/29/2024 2:30 PM EDT TC from pt requesting a refilld for medication Cyclobenzaprine. Pt states that she got this medication from a another doctor ans is requesting to get it from PCP Contact pt at. Contact pt at [phone] documented in this encounter Plan of Treatment Upcoming Encounters Date Type Department Care Team (Late st Contact Info) Description 07/17/2024 10:40 AM EDT Office Visit [facility] OPTOMETRY [address] [place], [place] [phone] 07/27/2024 11:00 AM EDT Office Visit [facility] MEDICINE [address] [place] [address] Angelique Grace DO [address] [place] [address] 08/14/2024 1:00 PM EDT Medication Management [facility] MEDICINE [address] [place] [address] PuYu traore, PharmD [address] [place] [address] documented as of this encounter Goals Goal [...] documented as of this encounter Care Teams Lens Coating Technician Relationship Specialty Start Date End Date Angelique Grace DO [address] [place] [address] PCP - General Family Medicine 03/14/18 Puia, Yu, PharmD [address] [place] [address] Pharmacist Internal Medicine 11/03/22 documented as of this encounter
--- OUTSIDE RECORDS SUMMARY | 2024-07-04 14:29 | XMS_ITS | Encounter Summary ---
Author Organization [employer] Address [address] [facility] 7t [place] [address] Care Team Providers Care Nuclear Process Engineer Name Role Phone Angelique Grace DO Primary Care Provider [phone] Yu Busby PharmD Unavailable [phone] Encounter Details Date Type Department Care Team (Late st Contact Info) Description 08/10/2023 Telephone [facility] MEDICINE [address] [place] [address] Angelique Grace DO [address] [place] [address] Social History Tobacco Use Types Packs/Day Years [...] Description 07/17/2024 10:40 AM EDT Office Visit [facility] OPTOMETRY [address] [place] [address] 07/27/2024 11:00 AM EDT Office Visit [facility] MEDICINE [address] [place] [address] Angelique Grace DO [address] [place] [address] 08/14/2024 1:00 PM EDT Medication Management [facility] MEDICINE [address] [place] [address] JamesiaYu, PharmD [address] [place] [address] documented as of this encounter Goals Goal [...] documented as of this encounter Care Teams Nuclear Process Engineer Relationship Specialty Start Date End Date Angelique Grace DO [address] [place] [address] PCP - General Family Medicine 03/14/18 Yu Busby, Radha [address] [place] [address] Pharmacist Internal Medicine 11/03/22 documented as of this encounter
--- OUTSIDE RECORDS SUMMARY | 2024-07-04 14:29 | XMS_ITS | Encounter Summary ---
Author Organization [employer] Address [address] [facility] 7t [place] [address] Care Team Providers Care Trimming Cutter Machine Name Role Phone Angelique Grace Primary Care Provider + [phone] Yu Busby PharmD Unavailable [phone] Encounter Details Date Type Department Care Team (Late st Contact Info) Description 05/12/2023 Orders Only [place] [facility] Information Management [address] [place] [address] ProviderKhadar MD Social History Tobacco Use Types [...] Description 07/17/2024 10:40 AM EDT Office Visit [facility] OPTOMETRY [address] [place], [place] [phone] 07/27/2024 11:00 AM EDT Office Visit [facility] MEDICINE [address] [place] [address] Angelique Grace DO [address] [place] [address] 08/14/2024 1:00 PM EDT Medication Management [facility] MEDICINE [address] [place] [address] PuiaDarrynYu, PharmD [address] [place] [address] documented as of this encounter Goals Goal Patient Goal Type Associated Problems Recent Progress Patient-Stated? Author Smoking cessation General No JamesiaYu, PharmD Hemoglobin A1c < 7 Result Component 7.9( 12:07 PM EDT) No Castillo Pradhan, PharmD Record your blood sugar as directed Result Component No PuiaDarrynYu, PharmD documented as of this encounter Procedures [...] documented as of this encounter Care Teams Trimming Cutter Machine Relationship Specialty Start Date End Date Angelique Grace DO [address] [place] [address] PCP - General Family Medicine 03/14/18 Yu Busby PharmD [address] [place] [address] Pharmacist Internal Medicine 11/03/22 documented as of this encounter
--- OUTSIDE RECORDS SUMMARY | 2024-07-04 14:29 | XMS_ITS | Encounter Summary ---
Author Organization [employer] Address [address] [facility] 7t [place] [address] Care Team Providers Care Rail Splitter Name Role Phone Angelique Grace DO Primary Care Provider [phone] Yu Busby PharmD Unavailable [phone] Reason for Visit * Reason Onset Date Comments Accomodation Letter 08/23/2023 Encounter Details Date Type Department Care Team ([facility] st Contact Info) Description 08/23/2023 Telephone [facility] MEDICINE [address] [place] [address] Angelique Grace DO [address] [place] [address] Accomodation Letter Social History Tobacco Use Types [...] Pt was transferred from Him in which assembly instructions writer contact HIM for clarification. They informed assembly instructions writer pt was advised to leave message with providers team. If any questions please contact pt at [phone]. documented in this encounter Plan of Treatment Upcoming Encounters Date Type Department Care Team (Late st Contact Info) Description 07/17/2024 10:40 AM EDT Office Visit [facility] OPTOMETRY [address] [place] [address] 07/27/2024 11:00 AM EDT Office Visit [facility] MEDICINE [address] [place] [address] Angelique Grace DO [address] [place] [address] 08/14/2024 1:00 PM EDT Medication Management [facility] MEDICINE [address] [place] [address] Puia, Yu, PharmD [address] [place] [address] documented as of this encounter Goals Goal Patient Goal Type Associated Problems Recent Progress Patient-Stated? Author Smoking cessation General No Puia, Yu, PharmD Hemoglobin A1c < 7 Result Component 7.9( 12:07 PM EDT) No Dellogono Castillo, PharmD Record your blood sugar as directed Result Component No Puia, Yu, PharmD documented as of this encounter Visit Diagnoses Not on filedocumented in this encounter Additional Health Concerns Assessment Noted Time PHQ-9 Depression Total Score: 0 06/09/19 23 11:27 AM EDT documented as of this encounter Care Teams Rail Splitter Relationship Specialty Start Date End Date Angelique Grace DO [address] [place] [address] PCP - General Family Medicine 03/14/18 Yu Busby, Radha [address] [place] [address] [place] [phone] Pharmacist Internal Medicine 11/03/22 documented as of this encounter
--- OUTSIDE RECORDS SUMMARY | 2024-07-04 14:29 | XMS_ITS | Encounter Summary ---
Author Organization [employer] Address [address] [facility] 7t [place] [address] Care Team Providers Care Geospatial Information Technologist Name Role Phone Angelique Grace DO Primary Care Provider [phone] Yu Busby PharmD Unavailable [phone] Reason for Visit * Reason Onset Date Comments Call Back Request 03/23/2023 Encounter Details Date Type Department Care Team ([facility] st Contact Info) Description 03/23/2023 Telephone [facility] MEDICINE [address] [place] [address] Angelique Grace DO [address] [place] [address] Call Back Request Social History Tobacco Use [...] a call back in regards pregabalin LANDY, sba underwriter advise pt about the status on chart but pt still want a call from a nurse. documented in this encounter Plan of Treatment Upcoming Encounters Date Type Department Care Team (Late st Contact Info) Description 07/17/2024 10:40 AM EDT Office Visit [facility] OPTOMETRY [address] [place], [place] [phone] 07/27/2024 11:00 AM EDT Office Visit [facility] MEDICINE [address] [place] [address] Angelique Grace DO [address] [place] [address] 08/14/2024 1:00 PM EDT Medication Management [facility] MEDICINE [address] [place] [address] Yu Busby PharmD [address] [place] [address] documented as of this encounter Goals Goal [...] documented as of this encounter Care Teams Geospatial Information Technologist Relationship Specialty Start Date End Date Angelique Grace DO [address] [place] [address] PCP - General Family Medicine 03/14/18 Yu Busby PharmD [address] [place] [address] Pharmacist Internal Medicine 11/03/22 documented as of this encounter
--- OUTSIDE RECORDS SUMMARY | 2024-07-04 14:29 | XMS_ITS | Encounter Summary ---
Author Organization [employer] Address 75 [facility] 7t [place] [address] Care Team Providers Care Briquette Machine Operator Name Role Phone Angelique Grace DO Primary Care Provider +1- [phone] Yu Busby PharmD Unavailable [phone] Reason for Visit * Reason Onset Date Comments Med Refill 06/26/2024 Encounter Details Date Type Department Care Team ([facility] st Contact Info) Description 06/26/2024 Telephone [facility] [address] [place] [address] Angelique Grace DO [address] [place] [address] Med Refill Social History Tobacco Use Types [...] Telephone Encounter - Angelique Soler LPN - 06/26/2024 1:44 PM EDT Medication was for short term. * Telephone Encounter - Mily Lal - 06/26/2024 1:40 PM EDT TC from pt requesting medication refill. Medications needing refill : cyclobenzaprine (Flexeril) 10 MG tablet To be sent to: [facility] [address] documented in this encounter Plan of Treatment Upcoming Encounters Date Type Department Care Team (Late st Contact Info) Description 07/17/2024 10:40 AM EDT Office Visit [facility] [address] [place], [place] [phone] 07/27/2024 11:00 AM EDT Office Visit [facility] [address] [place] [address] Angelique Grace DO [address] [place] [address] 08/14/2024 1:00 PM EDT Medication Management [facility] [address] [place] [address] Yu Busby PharmD [address] [place] [address] documented as of this encounter Goals Goal [...] documented as of this encounter Care Teams Briquette Machine Operator Relationship Specialty Start Date End Date Angelique Grace DO [address] [place] [address] PCP - General Family Medicine 03/14/18 Yu Busby, PharmD [address] [place] [address] Pharmacist Internal Medicine 11/03/22 documented as of this encounter
--- OUTSIDE RECORDS SUMMARY | 2024-07-04 14:29 | XMS_ITS | Encounter Summary ---
Author Organization [employer] Address 75 [facility] [address] [place] [address] Care Team Providers Care Junior Linux Administrator Name Role Phone Angelique Grace DO Primary Care Provider +1- [phone] Yu Busby PharmD Unavailable [phone] Reason for Referral * Imaging (Routine) - Pending Review Specialty Diagnoses / Procedures Referred By Contac t Referred To Contact Radiology Diagnoses Dyspareunia in female Procedures US Pelvis Transvaginal Angelique Grace DO [address] [place] [address] Phone: tel: fax: Referral ID Status Reason Start Date Expiration Date V isits Requested Visits Authorized [id number] Pending Review 07/04/2024 07/04/2025 1 1 * Imaging (Routine) - Pending Review Specialty Diagnoses / Procedures Referred By Contac t Referred To Contact Radiology Diagnoses Dyspareunia in female Procedures Us Pelvis complete Angelique Grace DO [address] [place] [address] Phone: tel: fax: Referral ID Status Reason Start Date Expiration Date V isits Requested Visits Authorized [id number] Pending Review 07/04/2024 07/04/2025 1 1 * Consultation (Urgent) - Pending Review Specialty Diagnoses / Procedures Referred By Contac t Referred To Contact Physical Medicine and Rehabilitation Diagnoses Chronic bilateral low back pain, unspecified whether sciatica present Angelique Grace DO [address] [place] [address] Phone: tel: fax: Referral ID Status Reason Start Date Expiration Date Visits Requested Visits Authorized [id number] Pending Review Specialty Services Required 07/04/2024 07/04/2025 1 1 Encounter Details Date Type Department Care Team (Late st Contact Info) Description 07/04/2024 10:45 AM EDT Office Visit [facility] [address] [place] [address] Angelique Grace DO [address] [place] [address] Chronic bilateral low back pain, unspecified whether sciatica present (Primary Dx); Dyspareunia in female Social History Tobacco Use Types Packs/Day Years [...] AM EDT documented as of this encounter Last Filed Vital Signs Vital Sign Reading [...] Mass Index 32.52 07/04/2024 11:36 AM EDT documented in this encounter Plan of Treatment Upcoming Encounters Date Type Department Care Team (Late st Contact Info) Description 07/17/2024 10:40 AM EDT Office Visit [facility] [address] [place] [address] 07/27/2024 11:00 AM EDT Office Visit [facility] [address] [place] [address] Angelique Grace DO [address] [place] [address] 08/14/2024 1:00 PM EDT Medication Management [facility] [address] [place] [address] Yu Busby, PharmD [address] [place] [address] Scheduled Orders Name Type Priority Associated Diagnoses Orde r Schedule Culture, Urine, Routine Microbiology Routine Dyspareunia in female Expected: 07/04/2024 (Approximate), Expires: 07/04/2025 Bacterial Vaginosis Panel Microbiology Routine Dyspareunia in female Ordered: 07/04/2024 Chlamydia/N. Gonorrhoeae RNA, TMA, Urogenitial Microbiology Routine Dyspareunia in female Ordered: 07/04/2024 Albumin, Random Urine W/Creatinine Lab Routine Chronic bilateral low back pain, unspecified whether sciatica present Dyspareunia in female Expected: 07/04/2024 (Approximate), Expires: 07/04/2025 HIV-1/2 Antigen and Antibodies, Fourth Generation, with Reflexes Lab Routine Chronic bilateral low back pain, unspecified whether sciatica present Dyspareunia in female Expected: 07/04/2024 (Approximate), Expires: 07/04/2025 Hepatitis C Antibody with Reflex to HCV, RNA, Quantitative, Real-Time PCR Lab Routine Chronic bilateral low back pain, unspecified whether sciatica present Dyspareunia in female Expected: 07/04/2024, Expires: 07/04/2025 RPR (Monitor) with Reflex to??Titer Lab Routine Chronic bilateral low back pain, unspecified whether sciatica present Dyspareunia in female Expected: 07/04/2024, Expires: 07/04/2025 Alpha-Fetoprotein, Tumor Marker Lab Routine Chronic bilateral low back pain, unspecified whether sciatica present Dyspareunia in female Expected: 07/04/2024 (Approximate), Expires: 07/04/2025 Us Pelvis complete Imaging Routine Dyspareunia in female Expected: 07/04/2024, Expires: 07/04/2025 US Pelvis Transvaginal Imaging Routine Dyspareunia in female Expected: 07/04/2024, Expires: 07/04/2025 Scheduled Referrals Name Type Priority Associated Diagnoses Orde r Schedule Referral to Physical Medicine Rehab Outpatient Referral Urgent Chronic bilateral low back pain, unspecified whether sciatica present Expected: 07/04/2024 (Approximate), Expires: 07/04/2025 documented as of this encounter Goals Goal Patient Goal Type Associated Problems Recent Progress Patient-Stated? Author Smoking cessation General No Yu Busby PharmYusef Hemoglobin A1c < 7 Result Component 7.9( 12:07 PM EDT) No Castillo Pradhan PharmD Record your blood sugar as directed Result Component No Yu Busby PharmD documented as of this encounter Procedures Procedure Name Priority Date/Time Associated Diagnosis Comments VITAMIN D,25-OH,TOTAL,IA Routine 07/04/2024 12:07 PM EDT Chronic bilateral low back pain, unspecified whether sciatica present Dyspareunia in female CBC Routine 07/04/2024 12:07 PM EDT Chronic [...] 07/04/2024 11:41 AM EDT Dyspareunia in female documented in this encounter Results * CBC (07/04/2024 12:07 PM EDT) Pathologist [facility] White Blood Count 5.2 4.8 - 10.8 X10*3/uL [facility] Red Blood Count 4.73 4.20 - 5.50 X10*6/uL [facility] Hemoglobin 14.1 12.0 - 16.0 g/dl [facility] Hematocrit 43.3 37.0 - 47.0 % [facility] Mean Corpuscular Volume 91.5 80.0 - 98.0 fL [facility] Mean Corpuscular Hemoglobin 29.8 27.0 - 33.0 pg [facility] Mean Corpuscular HGB Conc 32.6 31.0 - 35.0 g/dl [facility] Red Cell Distribution Width 13.1 11.0 - 16.0 % [facility] Platelet Count 211 160 - 400 X10*3/uL [facility] Mean Platelet Volume 11.4 9.4 - 12.3 fL [facility] NRBC Pct Auto 0.0 0.0 - 0.2 /100WBC [facility] NRBC Abs Auto 0.000 0.0 - 0.012 X10*3/uL [facility] Blood Venous blood specimen / Unknown 07/04/2024 12:07 PM EDT 07/04/2024 1:08 PM EDT us Angelique Grace DO LAB BLOOD ORDERABLES Final R esult [facility] [address] [place] [phone] * (ABNORMAL) Basic Metabolic Panel (07/04/2024 12:07 PM EDT) [facility] Sodium 140 135 - 145 mmol/L [facility] Potassium 4.1 3.3 - 5.1 mmol/L [facility] Chloride 106 96 - 108 mmol/L [facility] Carbon Dioxide 26 22 - 29 mmol/L [facility] Anion Gap 12 12 - 20 [facility] Urea Nitrogen (BUN) 19(H) 9 - 16 mg/dL [facility] Creatinine, Serum 0.69 0.5 - 1.4 mg/dL [facility] Estimated Glomerular Filt Rate >60 [facility] Comment:Chronic Kidney Disea se: Estimated GFR < 60 mL/min/1.53b1Wylnjz Kidney Disease: Estimated GFR < 15 mL/min/1.73m2 Glucose 163(H) 60 - 115 mg/dL [facility] Calcium 9.6 8.4 - 10.2 mg/dL [facility] Blood Venous blood specimen / Unknown 07/04/2024 12:07 PM EDT 07/04/2024 1:08 PM EDT us Angelique Grace DO LAB BLOOD ORDERABLES Final R esult [facility] [address] [place] [phone] * (ABNORMAL) Hemoglobin A1c (07/04/2024 12:07 PM EDT) Hemoglobin A1c 7.9(H) <6.0 % [facility] Comment:Hemoglobin A1C Refer ence Range Adults: 4.8 - 6.0 % Non diabetic: < 6.0 % Goal: < 7.0 %Additional Action Suggested: > 8.0 %Note: Hemoglobin A1c results are invalid for patients with abnormal amounts of HbF. Blood transfusions may impact the HbA1c concentration in the patient sample. Estimated Average Glucose 180 mg/dL [facility] Comment:eAG = Estimated ave rage glucose which is %A1C expressed asaverage glucose, using the formula of the B4W-ZasxinvWdwvwba Glucose study (ADAG), Diabetes Care, Vol.31,#8,Oct. 2007 Blood Venous blood specimen / Unknown 07/04/2024 12:07 PM EDT 07/04/2024 1:08 PM EDT us Angelique Grace DO LAB BLOOD ORDERABLES Final R esult Performing Organization Address City/[facility]/ZIP Co de Phone Number [facility] [address] [place] [phone] * (ABNORMAL) Hepatic Function Panel (07/04/2024 12:07 PM EDT) Bilirubin, Total 0.2 0.0 - 1.0 mg/dL [facility] Bilirubin, Direct <0.2 0.0 - 0.5 mg/dL [facility] Aspartate Amino Transferase 32(H) 5 - 31 U/L [facility] Alanine Aminotransferase 44(H) 0 - 31 U/L [facility] Total Protein 7.9 6.5 - 8.0 g/dL [facility] Albumin Level 4.3 3.5 - 5.0 g/dL [facility] Alkaline Phosphatase 81 39 - 117 U/L [facility] Blood Venous blood specimen / Unknown 07/04/2024 12:07 PM EDT 07/04/2024 1:08 PM EDT us Angelique Grace DO LAB BLOOD ORDERABLES Final R esult Performing Organization Address [facility] Co de Phone Number [facility] [address] [place] [phone] * (ABNORMAL) TSH (07/04/2024 12:07 PM EDT) Thyroid Stimulating Hormone 0.23(L) 0.32 - 4.0 uIU/mL [facility] Comment:TSH 3rd Generation ( [facility]) Blood Venous blood specimen / Unknown 07/04/2024 12:07 PM EDT 07/04/2024 1:08 PM EDT Angelique Grace DO LAB BLOOD ORDERABLES Final R esult Performing Organization Address [facility]/ZIP Co de Phone Number [facility] [address] [place] [phone] * Lipid Panel, Standard (07/04/2024 12:07 PM EDT) Triglycerides 97 <150 mg/dL [facility] Comment:Desirable Triglyceri de: less than 150 mg/dLBorderline High Triglyceride 150-199 mg/dLHigh Triglyceride: 200-499 mg/dLVery High Triglyceride: greater than or equal to 5OO mg/dL Cholesterol 169 <200 mg/dL [facility] Comment:Desirable Cholestero l: less than 200 mg/dLBorderline High Cholesterol: 200-239 mg/dLHigh Cholesterol: greater than 239 mg/dL LDL Cholesterol Calculated 91 <100 mg/dL [facility] Comment:Desirable LDL: less than 100 mg/dLNear Optimal/Above Optimal LDL: 110- 129 mg/dLBorderline High LDL: 130-159 mg/dLHigh LDL: 160-189 mg/dLVery High LDL: greater than or equal to 190 mg/dL HDL Cholesterol 59 >40 mg/dL [facility] Comment:Desirable HDL: great er than 40 mg/dL Note: This HDL assay may give artificially low results in patients with liver disease. Blood Venous blood specimen / Unknown 07/04/2024 12:07 PM EDT 07/04/2024 1:08 PM EDT us Angelique Grace DO LAB BLOOD ORDERABLES Final R esult [facility] [address] [place] [phone] * Vitamin D, 25-Hydroxy, Total, Immunoassay (07/04/2024 12:07 PM EDT) Vitamin D 25-OH Total 54.8 >30 ng/mL [facility] Comment: Health Based Reference Values*< 20 ??ng/mL ??Eytqvyqrl52-39 ng/mL ??Insufficient> 30 ??ng/mL ??Sufficient*Fish PEREZ. N [...] ORDERABLES Final R esult Performing Organization Address [facility]/ZIP Co de Phone Number [facility] [address] [place] [phone] * T4, Free (07/04/2024 12:07 PM EDT) Free T4 (Free Thyroxine) 0.80 0.71 - 1.85 ng/dL [facility] Blood Venous blood specimen / Unknown 07/04/2024 12:07 PM EDT 07/04/2024 1:08 PM EDT Angelique Grace LAB BLOOD ORDERABLES Final R esult Performing Organization Address [facility]/ZIP Co de Phone Number [facility] [address] [place] [phone] * (ABNORMAL) POCT Urinalysis (07/04/2024 11:41 [...] Urine 07/04/2024 11:4 1 AM EDT Angelique Grace DO POINT OF CARE TEST ENTER/ARETHA T ORDERABLES Final Result documented in this encounter Visit Diagnoses Diagnosis Chronic bilateral low back pain, unspecified whether sciatica present- Primary Dyspareunia in female documented in this encounter Additional Health Concerns Assessment Noted Time PHQ-9 Depression Total Score: 0 07/05/19 25 11:39 AM EDT documented as of this encounter Care Teams Junior Linux Administrator Relationship Specialty Start Date End Date Angelique Grace DO [address] [place] [address] PCP - General Family Medicine 03/14/18 Yu Busby PharmD [address] [place] [address] Pharmacist Internal Medicine 11/03/22 documented as of this encounter
--- OUTSIDE RECORDS SUMMARY | 2024-07-04 14:29 | XMS_ITS | Encounter Summary ---
Author Organization [employer] Address [address] [facility] 7t [place] [address] Care Team Providers Care Stamp Pad Finisher Name Role Phone Angelique Grace DO Primary Care Provider +1- [phone] Yu Busby PharmD Unavailable [phone] Reason for Visit * Reason Onset Date Comments Referral 07/19/2023 Encounter Details Date Type Department Care Team (Late st Contact Info) Description 07/19/2023 Telephone [facility] [address] [place] [address] Angelique Grace DO [address] [place] [address] Referral Social History Tobacco Use Types Packs/Day [...] for plastic surgery. Please contact pt at [phone]. documented in this encounter Plan of Treatment Upcoming Encounters Date Type Department Care Team (Late st Contact Info) Description 07/17/2024 10:40 AM EDT Office Visit [facility] [address] [place] [address] 07/27/2024 11:00 AM EDT Office Visit [facility] [address] [place] [address] Angelique Grace DO [address] [place] [address] 08/14/2024 1:00 PM EDT Medication Management [facility] [address] [place] [address] PuiaYu, PharmD [address] [place] [address] documented as of this encounter Goals Goal [...] documented as of this encounter Care Teams Stamp Pad Finisher Relationship Specialty Start Date End Date Angelique Grace DO [address] [place] [address] PCP - General Family Medicine 03/14/18 Yu Busby, PharmD [address] [place] [address] Pharmacist Internal Medicine 11/03/22 documented as of this encounter
--- OUTSIDE RECORDS SUMMARY | 2024-07-04 14:29 | XMS_ITS | Encounter Summary ---
Author Organization [employer] Address [address] [facility] 7t [place] [address] Care Team Providers Care Supply Chain Assistant Name Role Phone Angelique Grace DO Primary Care Provider +1- [phone] Yu Busby PharmD Unavailable [phone] Reason for Visit * Reason Onset Date Comments Med Refill 03/01/2024 Encounter Details Date Type Department Care Team ([facility] st Contact Info) Description 03/01/2024 Telephone [facility] [address] [place] [address] Angelique Grace DO [address] [place] [address] Med Refill Social History Tobacco Use Types [...] be sent to: [facility] [address] documented in this encounter Plan of Treatment Upcoming Encounters Date Type Department Care Team (Late st Contact Info) Description 07/17/2024 10:40 AM EDT Office Visit [facility] [address] [place], [place] [address] 07/27/2024 11:00 AM EDT Office Visit [facility] [address] [place] [address] Angelique Grace DO [address] [place] [address] 08/14/2024 1:00 PM EDT Medication Management [facility] [address] [place] [address] Yu Busby PharmD [address] [place] [address] documented as of this encounter Goals Goal [...] documented as of this encounter Care Teams Supply Chain Assistant Relationship Specialty Start Date End Date Angelique Grace DO [address] [place] [address] PCP - General Family Medicine 03/14/18 Yu Busby, PharmD [address] [place] [address] Pharmacist Internal Medicine 11/03/22 documented as of this encounter
--- OUTSIDE RECORDS SUMMARY | 2024-07-04 14:29 | XMS_ITS | Encounter Summary ---
Author Organization [employer] Address [address] [facility] 7t [place] [address] Care Team Providers Care Lumber Kiln Operator Name Role Phone Angelique Grace DO Primary Care Provider +1- [phone] DelCsatillo clements PharmD Unavailable Unavail able Yu Busby PharmD Unavailable Reason for Visit * Reason Comments Med Refill Encounter Details Date Type Department Care Team (Late Contact Info) Description 06/02/2022 Refill [facility] [address] [place] [address] Yulisa Cedillo MD [address] [place] [address] Primary hypertension Social History Tobacco Use Types [...] Encounters Date Type Department Care Team (Late Contact Info) Description 07/17/2024 10:40 AM EDT Office Visit [facility] OPT[facility] [address] [place] [address] 07/27/2024 11:00 AM EDT Office Visit [facility] MED[facility] [address] [place] [address] Angelique Grace DO [address] [place] [address] 08/14/2024 1:00 PM EDT Medication Management [facility] [address] [place] [address] [place] [address] documented as of this encounter Visit Diagnoses Diagnosis Primary hypertension Unspecified essential hypertension documented in this encounter Care Teams Lumber Kiln Operator Relationship Specialty Start Date End Date [place] [address] PCP - General Family Medicine 03/14/18 Castillo Pradhan, Radha [address] [place] [address] Pharmacist Internal Medicine 07/22/22 11/02/22 Yu Busby PharmD [address] [place] [address] Pharmacist Internal Medicine 11/03/22 documented as of this encounter
--- OUTSIDE RECORDS SUMMARY | 2024-07-04 14:29 | XMS_ITS | Encounter Summary ---
Author Organization [employer] Address [address] [facility] 7t [place] [address] Care Team Providers Care Escort Service Attendant Name Role Phone Angelique Grace DO Primary Care Provider +1- [phone] Yu Busby PharmD Unavailable [phone] Reason for Visit * Reason Onset Date Comments Medication Question 02/16/2024 Encounter Details Date Type Department Care Team ([facility] st Contact Info) Description 02/16/2024 Telephone [facility] [address] [place] [address] Angelique Grace DO [address] [place] [address] Medication Question Social History Tobacco Use Types [...] Description 07/17/2024 10:40 AM EDT Office Visit [facility] [address] [place], [place] [id number] 07/27/2024 11:00 AM EDT Office Visit [facility] [address] [place] [address] Angelique Grace DO [address] [place] [address] 08/14/2024 1:00 PM EDT Medication Management [facility] [address] [place] [address] Yu Busby, PharmD [address] [place] [address] documented as of this encounter Goals Goal [...] documented as of this encounter Care Teams Escort Service Attendant Relationship Specialty Start Date End Date Angelique Grace DO [address] [place] [address] PCP - General Family Medicine 03/14/18 Yu Busby, PharmD [address] [place] [phone] Pharmacist Internal Medicine 11/03/22 documented as of this encounter
--- OUTSIDE RECORDS SUMMARY | 2024-07-04 14:29 | XMS_ITS | Encounter Summary ---
Author Organization [employer] Address 75 [facility] 7t [place] [address] Care Team Providers Care Instructional Support Services Director Name Role Phone Angelique Grace DO Primary Care Provider +1- [phone] Yu Busby PharmD Unavailable [phone] Reason for Visit * Reason Onset Date Comments Durable Medical Equipment 03/03/2023 Encounter Details Date Type Department Care Team ([facility] st Contact Info) Description 03/03/2023 Telephone [facility] [address] [place] [address] Angelique Grace DO [address] [place] [address] Durable Medical Equipment Social History Tobacco Use [...] Cane Electric Patches Please contact pt @ [phone] documented in this encounter Plan of Treatment Upcoming Encounters Date Type Department Care Team (Late st Contact Info) Description 07/17/2024 10:40 AM EDT Office Visit [facility] [address] [place] [address] 07/27/2024 11:00 AM EDT Office Visit [facility] [address] [place] [address] Angelique Grace DO [address] [place] [address] 08/14/2024 1:00 PM EDT Medication Management [facility] [address] [place] [address] Yu Busby, PharmD [address] [place] [address] documented as of this encounter Goals Goal [...] documented as of this encounter Care Teams Instructional Support Services Director Relationship Specialty Start Date End Date Angelique Grace DO [address] [place] [address] PCP - General Family Medicine 03/14/18 Yu Busby PharmD [address] [place] [address] Pharmacist Internal Medicine 11/03/22 documented as of this encounter
--- OUTSIDE RECORDS SUMMARY | 2024-07-04 14:29 | XMS_ITS | Encounter Summary ---
Author Organization [employer] Address 75 [facility] 7t [place] [address] Care Team Providers Care Parliamentary Librarian Name Role Phone Angelique Grace DO Primary Care Provider [phone] Yu Busby PharmD Unavailable [phone] Reason for Visit * Reason Comments Med Refill Encounter Details Date Type Department Care Team ([facility] st Contact Info) Description 06/01/2023 Refill [facility] [address] [place] [address] Yulisa Cedillo MD [address] [place] [address] Primary hypertension Social History Tobacco Use Types [...] Description 07/17/2024 10:40 AM EDT Office Visit [facility] [address] [place] [address] 07/27/2024 11:00 AM EDT Office Visit [facility] [address] [place] [address] Angelique Grace DO [address] [place] [address] 08/14/2024 1:00 PM EDT Medication Management [facility] [address] [place] [address] PuiaYu, PharmD [address] [place] [address] documented as of this encounter Goals Goal [...] documented as of this encounter Care Teams Parliamentary Librarian Relationship Specialty Start Date End Date Angelique Grace DO [address] [place] [address] PCP - General Family Medicine 03/14/18 Yu Busby, ChristieD [address] [place] [address] [place] [address] Pharmacist Internal Medicine 11/03/22 documented as of this encounter
--- OUTSIDE RECORDS SUMMARY | 2024-07-04 14:29 | XMS_ITS | Encounter Summary ---
Author Organization [employer] Address [address] [facility] 7t [place] [address] Care Team Providers Care Laser Specialist Name Role Phone Angelique Grace DO Primary Care Provider DelCastillo clements PharmD Unavailable Unavail able Yu Busby PharmD Unavailable Encounter Details Date Type Department Care Team (Late st Contact Info) Description 03/02/2022 Orders Only [facility] PEDS [address] [place] [address] Angelique Soler LPN Social History Tobacco Use [...] Description 07/17/2024 10:40 AM EDT Office Visit [facility] OPTOMETRY [address] [place] [address] 07/27/2024 11:00 AM EDT Office Visit [facility] MEDICINE [address] [place] [address] Angelique Grace DO [address] [place] [address] 08/14/2024 1:00 PM EDT Medication Management [facility] MED[facility] [address] [place] [address] PuYu traore PharmD [address] [place] [address] documented as of this encounter Visit Diagnoses Not on filedocumented in this encounter Care Teams Laser Specialist Relationship Specialty Start Date End Date Angelique Grace DO [address] [place] [address] PCP - General Family Medicine 03/14/18 Castillo Pradhan, ChristieD [address] [place] [address] Pharmacist Internal Medicine 07/22/22 11/02/22 Yu Busby, Radha [address] [place] [address] Pharmacist Internal Medicine 11/03/22 documented as of this encounter
[2024-07-04 15:21] LABS: Bacterial Vaginosis PCR NEGATIVE (Negative); Candida Group PCR DETECTED (Not Detect); Candida glab krusei PCR NOT DETECTED (Not Detect); Trichomonas vaginalis PCR NOT DETECTED (Not Detect)
[2024-07-04 15:52] LABS: CT PCR NOT DETECTED (Not Detect.); NG PCR NOT DETECTED (Not Detect.)
[2024-07-05 04:33] LABS: HIV AB/AG Nonreactive (Nonreactive); HIV Num 1 0.07 S/CO (0.00-0.99); ~HepC Num1 0.11 S/CO (0.00-0.79); ~Hepatitis C Antibody Nonreactive (Nonreactive)
[2024-07-05 08:14] LABS: Triiodothyronine T3 Total 104 ng/dL (76-181)
[2024-07-05 12:54] LABS: Alpha Fetoprotein 2.5 ng/mL
[2024-07-06 10:13] LABS: RPR Rapid Plasma Reagin NON-REACTIVE (NON-REACTIVE)
== END 2024-07-04 12:05 | disposition home or self-care (01) ==
LOC: HO.HHCL 12:04
PROVIDERS: Student in an Organized Health Care Education/Training Program; Visit Provider Family Medicine
DX: M54.50 Low back pain, unspecified (principal); G89.29 Other chronic pain; N94.10 Unspecified dyspareunia; E05.90 Thyrotoxicosis, unspecified without thyrotoxic crisis or storm; N39.0 Urinary tract infection, site not specified
CPT/HCPCS: 36415; 80048; 80061; 80076; 81515; 82105; 82306; 83036; 84439; 84443; 84480; 85027; 86592; 86803; 87086; 87389; 87491; 87591

== ENCOUNTER 2024-08-03 13:26 | Outpatient (REF) | payer MEDICAID, SELFPAY ==
--- NOTE | ~2024-08-03 | US_ITS ---
EXAMINATION: US PELVIS TRANSABDOMINAL AND TRANSVAGINAL HISTORY: vaginal heat after sexual intercourse COMPARISON: Comparison is made with the prior examination dated 09/28/2020. TECHNIQUE: Transabdominal and endovaginal real-time 2D mcnair-scale ultrasound was performed. FINDINGS: Uterus: The uterus is normal in size, measuring 6.8 x 3.1 x 3.6 cm. Myometrium has a normal echotexture. No fibroids are identified. Endometrium: The endometrial stripe measures 3 mm in thickness. There are nabothian cysts in the cervix. Right ovary: The right ovary measures 1.1 x 0.6 x 1.0 cm. The right ovary is normal in size and echotexture. Left ovary: The left ovary measures 1.6 x 0.7 x 0.9 cm. Tiny 2 mm echogenic area is noted which could represent a calcification. Pelvic fluid: none. US/US pelvic and transvaginal IMPRESSION: Essentially unremarkable pelvic ultrasound. Electronically signed by: Joao Jeffries MD 08/03/2024 02:28 PM EDT
--- OUTSIDE RECORDS SUMMARY | 2024-08-03 13:28 | XMS_ITS | Encounter Summary ---
Author Organization [employer] Address [address] [facility] 7t [place] [address] Care Team Providers Care Ferruler Name Role Phone Angelique Grace DO Primary Care Provider [phone] Yu Busby PharmD Unavailable [phone] Reason for Visit * Reason Comments Med Refill Encounter Details Date Type Department Care Team ([facility] st Contact Info) Description 02/14/2023 Refill [facility] [address] [place] [address] Yulisa Cedillo MD [address] [place] [address] Primary hypertension Social History Tobacco Use Types [...] Care Team (Late st Contact Info) Description 08/14/2024 1:00 PM EDT Medication Management [facility] MED[facility] [address] [place] [address] Yu Busby, PharmD [address] [place] [address] 10/22/2024 1:45 PM EDT Office Visit [facility] OPTOMETRY [address] [place] [address] Tarka, Agueda, OD [address] [place] [address] documented as of this encounter Goals Goal [...] documented as of this encounter Care Teams Ferruler Relationship Specialty Start Date End Date Angelique Grace DO [address] [place] [address] PCP - General Family Medicine 03/14/18 Puia, Yu, PharmD [address] [place] [address] Pharmacist Internal Medicine 11/03/22 documented as of this encounter
== END 2024-08-03 13:27 | disposition home or self-care (01) ==
LOC: HO.US 13:26
PROVIDERS: PCP Family Medicine; Visit Provider Family Medicine
DX: N94.10 Unspecified dyspareunia (principal)
CPT/HCPCS: 76830; 76856

== ENCOUNTER → 2024-08-03 13:28 | Outpatient (BNV) | payer MEDICAID, SELFPAY | PROVIDERS: PCP Family Medicine; Visit Provider Radiology Diagnostic Radiology | DX: N89.8 Other specified noninflammatory disorders of vagina (principal) | CPT/HCPCS: 76830; 76856 ==

== ENCOUNTER 2024-08-30 14:21 | Outpatient (REF) | payer MEDICAID, SELFPAY ==
[2024-08-30 15:39] LABS: Hematocrit 41.4 % (37.0-47.0); Hemoglobin 13.4 g/dl (12.0-16.0); Mean Corpuscular HGB Conc 32.4 g/dl (31.0-35.0); Mean Corpuscular Hemoglobin 29.3 pg (27.0-33.0); Mean Corpuscular Volume 90.6 fL (80.0-98.0); Platelet Count 209 X10*3/uL (160-400); Red Blood Count 4.57 X10*6/uL (4.20-5.50); Red Cell Distribution Width 13.9 % (11.0-16.0); White Blood Count 5.6 X10*3/uL (4.8-10.8)
--- OUTSIDE RECORDS SUMMARY | 2024-08-30 15:39 | XMS_ITS | Encounter Summary ---
Author Organization [employer] Address [address] [facility] 7t [place] [address] Care Team Providers Care Plant Custodian Name Role Phone Angelique Grace DO Primary Care Provider [phone] Yu Busby PharmD Unavailable [phone] Reason for Visit * Reason Comments Med Refill Encounter Details Date Type Department Care Team ([facility] st Contact Info) Description 02/14/2023 Refill [facility] MEDICINE [address] [place] [address] Yulisa Cedillo MD [address] [place] [address] Primary hypertension Social History Tobacco Use Types [...] Care Team (Late st Contact Info) Description 10/02/2024 1:30 PM EDT Medication Management [facility] [address] [place] [address] Yu Bubsy, PharmD [address] [place] [address] 10/22/2024 1:45 PM EDT Office Visit [facility] OPTOMETRY [address] [place] [address] Tarka, Agueda, OD [address] [place] [address] documented as of this encounter Goals Goal [...] documented as of this encounter Care Teams Plant Custodian Relationship Specialty Start Date End Date Angelique Grace DO [address] [place] [address] PCP - General Family Medicine 03/14/18 Puia, Yu, PharmD [address] [place] [phone] Pharmacist Internal Medicine 11/03/22 documented as of this encounter
[2024-08-30 15:43] LABS: Prothrombin Time 11.4 SEC (10.9-12.4)
[2024-08-30 16:01] LABS: Creatinine Urine 166.93 mg/dL; Microalbum/Creatinine Ratio Ur 27.5 ug/mg cr (<30)
[2024-08-30 16:09] LABS: Alanine Aminotransferase 46 U/L (0-31); Albumin Level 4.4 g/dL (3.5-5.0); Alkaline Phosphatase 72 U/L (39-117); Anion Gap 12 (12-20); Aspartate Amino Transferase 46 U/L (5-31); Bilirubin Total 0.2 mg/dL (0.0-1.0); Blood Urea Nitrogen 14 mg/dL (9-16); Calcium 9.3 mg/dL (8.4-10.2); Carbon Dioxide 30 mmol/L (22-29); Chloride 104 mmol/L (96-108); Estimated Glomerular Filt Rate > 60; Glucose Random 177 mg/dL (60-115); Potassium 4.1 mmol/L (3.3-5.1); Sodium 142 mmol/L (135-145); Total Protein 7.5 g/dL (6.5-8.0)
[2024-08-30 16:14] LABS: Alanine Aminotransferase 61 U/L (0-31); Albumin Level 4.4 g/dL (3.5-5.0); Alkaline Phosphatase 72 U/L (39-117); Aspartate Amino Transferase 45 U/L (5-31); Bilirubin Direct < 0.2 mg/dL (0.0-0.5); Bilirubin Total 0.2 mg/dL (0.0-1.0); Cholesterol 140 mg/dL (<200); HDL Cholesterol 55 mg/dL (>40); LDL Cholesterol Calculated 56 mg/dL (<100); Total Protein 7.4 g/dL (6.5-8.0); Triglycerides 148 mg/dL (<150)
[2024-08-30 16:21] LABS: Thyroid Stimulating Hormone 0.24 uIU/mL (0.32-4.0)
[2024-08-30 16:27] LABS: Free T4 (Free Thyroxine) 0.77 ng/dL (0.71-1.85)
[2024-08-30 16:36] LABS: Folate 12.3 ng/mL (> or = 4.0); Vitamin B12 961 pg/mL (200-900)
== END 2024-08-30 14:22 | disposition home or self-care (01) ==
LOC: HO.LAB 14:21
PROVIDERS: Internal Medicine; PCP Family Medicine; Visit Provider Student in an Organized Health Care Education/Training Program
DX: M54.50 Low back pain, unspecified (principal); G89.29 Other chronic pain; N94.10 Unspecified dyspareunia; E11.9 Type 2 diabetes mellitus without complications; Z79.4 Long term (current) use of insulin; E78.49 Other hyperlipidemia; R20.2 Paresthesia of skin; E05.90 Thyrotoxicosis, unspecified without thyrotoxic crisis or storm; K76.0 Fatty (change of) liver, not elsewhere classified
CPT/HCPCS: 36415; 80053; 80061; 80076; 82043; 82248; 82570; 82607; 82746; 84439; 84443; 85027; 85610

== ENCOUNTER 2024-09-03 12:26 | Outpatient (REF) | payer MEDICAID, SELFPAY ==
--- OUTSIDE RECORDS SUMMARY | 2024-09-03 13:47 | XMS_ITS | Clinical Summary ---
[facility] Address [address] [place] [address] Care Team Providers Care Dam Operator Name Role Phone CalebAngelique espinoza Primary Care Provider [phone] Surgical History Surgery Date Site/Laterality Comments WRIST SURGERY Right PROCEDURE: HISTORICAL WRIST SURGERY; COMMENT: 30 years ago Medical History Medical History Date Comments Depression DX:Depression Anxiety disorder DX:Anxiety diso rder Mixed hyperlipidemia DX:Mixed hy perlipidemia; COMMENT: diabetes Wears glasses DX:Wears glasses High blood pressure DX:High bloo d pressure Social History Tobacco Use Types Packs/Day Years Used Date Smoking Tobacco: Never Assessed Comments Unknown Sex and Gender Information Value Date Recorded Sex Assigned at Not on file Legal Sex Female 11:07 AM EDT Gender Identity Not on file Sexual Orientation Not on file Obstetrics History Last Filed Vital Signs Vital Sign Reading Time Taken Comments Blood Pressure - - Pulse - - Temperature - - Respiratory Rate - - Oxygen Saturation - - Inhaled Oxygen Concentration - - Weight 78 kg (172 lb) 06/08/2023 2:03 PM EDT Height 153.7 cm (5' 0.5 ) 06/08/2023 2:03 PM EDT Body Mass Index 33.04 06/08/2023 2:03 PM EDT Plan of Treatment Upcoming Encounters Date Type Department Care Team (Late st Contact Info) Description 09/10/2024 1:30 PM EDT Consult Plastic & Reconstructive Surgery - [place] [address] [place] [address] Karl Bojorquez PA [address] [place] [address] Health Maintenance Due Date Last Done Comments Breast Cancer Screening 1970 Diabetes: Annual GFR (Glomerular Filtration Rate) 1970 Diabetes: Annual Foot Exam 1980 Diabetes: Annual Retina Eye Exam 1980 Cervical Cancer Screening: Pap Smear 1991 Cholesterol Screening (Lipid Panel) 10/06/2023 Colorectal Cancer Screening: Colonoscopy 10/06/2023 Depression Screening 10/06/2023 Diabetes: Annual Urine Albumin-Creatinine Ratio (uACR) 10/06/2023 Diabetes: Blood Sugar Control Test (HGBA1C) 10/06/2023 HIV Screening 10/06/2023 Hepatitis C Screening 10/06/2023 Hypertension/CHF/CAD Annual BMP Blood Test 10/06/2023 Social Influencers of Health Screening 10/06/2023 COVID-19 Vaccine ( season) 2023 02/09/2023, 06/05/2021, 08/15/2020, Additional history exists Influenza Vaccine (Season Ended) 2024 02/09/2023, 01/12/2022, 01/29/2021, Additional history exists DTaP,Tdap,and Td Vaccines (4 - Td or Tdap) 11/20/2032 11/20/2022, 03/01/2013, 01/16/1998 Hepatitis B Vaccines Completed 11/10/2016, 06/02/2016, 03/02/2016, Additional history exists Hepatitis A Vaccines Completed 10/11/2017, 12/22/19 07 Zoster Vaccines Completed 06/25/2021, 04/20/2021 Pneumococcal Vaccine: 50+ Years Completed 06/07/2023, 02/05/2014, 05/10/2007, Additional history exists Pneumococcal Vaccine: Pediatrics (0 to 5 Years) and At-Risk Patients (6 to 64 Years) Aged Out 06/07/2023, 02/05/2014, 05/10/2007, Additional history exists No longer eligible based on patient's age to complete this topic HIB Vaccines Aged Out No longer eligi ble based on patient's age to complete this topic HPV Vaccines Aged Out No longer eligi ble based on patient's age to complete this topic IPV Vaccines Aged Out No longer eligi ble based on patient's age to complete this topic MMR Vaccines Aged Out No longer eligi ble based on patient's age to complete this topic Meningococcal ACWY Vaccine Aged Out N o longer eligible based on patient's age to complete this topic Meningococcal B Vaccine Aged Out No l onger eligible based on patient's age to complete this topic RSV Immunization Patients Under 20 months Aged Out No longer eligible based on patient's age to complete this topic Varicella Vaccines Aged Out No longer eligible based on patient's age to complete this topic Care Teams Dam Operator Relationship Specialty Start Date End Date Angelique Grace DO [address] [place] [address] PCP - General 07/23/11
[2024-09-03 13:52] LABS: Thyroid Stimulating Hormone 0.46 uIU/mL (0.32-4.0)
[2024-09-04 06:53] LABS: Triiodothyronine T3 Total 91 ng/dL (76-181)
== END 2024-09-03 12:27 | disposition home or self-care (01) ==
LOC: HO.LAB 12:26
PROVIDERS: PCP Family Medicine; Visit Provider Student in an Organized Health Care Education/Training Program
DX: E05.90 Thyrotoxicosis, unspecified without thyrotoxic crisis or storm (principal)
CPT/HCPCS: 36415; 84443; 84480

== ENCOUNTER 2024-09-03 12:58 | Outpatient (AMB) | payer MEDICAID, SELFPAY ==
[2024-09-03 13:13] VITALS: BP 123/77; PULSE 77; BMI 32.1
--- NOTE | 2024-09-03 13:13 | A.OFFVIS_ITS ---
Vital Signs 09/03/24 13:13 Height 5 ft 1 in Weight 169 lb 12.095 oz BMI 32.1 BP 123/77 Blood Pressure Location Lt brachial Position Sitting Pulse 77 Intake Visit Reasons: Constipation Intake Note: Maria C presents in the office as a follow up for constipation. CC: RUQ pains and states that it goes through the lower abdomen in the right and into the back. She denies constipation or diarrhea. She states that she has been having the right sided abdomen pains and nausea for the past two weeks - dizzy at times but not a lot. [employer] Required: Yes [employer] Name: [id number] Allergies enalapril (ENALAPRIL) Allergy (Severe, Verified 10/23/24 13:27) hives/throat swelling lisinopril (LISINOPRIL) Allergy (Severe, Verified 10/23/24 13:27) hives/throat swelling oxycodone Allergy (Intermediate, Verified 10/23/24 13:26) Vomiting hydrochlorothiazide (HYDROCHLOROTHIAZIDE) Allergy (Unknown, Verified 10/23/24 13:26) Unknown metoprolol (METOPROLOL) Allergy (Unknown, Verified 10/23/24 13:26) Unknown metronidazole (METRONIDAZOLE) Allergy (Unknown, Verified 10/23/24 13:26) Unknown HPI Comments Details: This is a 51-year-old female who presents to the office for follow up. Initial visit 03/22/22: History was reviewed the patient with the help of a finisher denture. Patient states that she has had occasional GERD and dyspepsia on and off for many years. Continues on daily PPI. However, for the past 3 months, has been noticing increased nausea, especially after eating. Describes this as feeling of being overly full. No abdominal pain, discomfort or vomiting with this. No unintentional weight loss. At baseline, she is constipated, but has noticed that when she passes a bowel movement, her nausea improves. Takes NSAIDs frequently (ketorolac, meloxicam, ibuprofen, naproxen have all been on her med list). Also has diabetes, but reports good control, last A1c per her report was 7.6%. Last endoscopy: September 2017: EGD: esophageal diverticulum @ 25cm. Gastric polyps. H pylori + gastritis. Feb 2018: colonoscopy: Excellent prep diverticulosis, erosions in R and tr ansverse colon. Bx normal. Patient does not recall being told what H pylori gastritis, or taking medications for this. 04/30/22: Had acute onset of abdominal pain, nausea, vomiting and diarrhea last week, for which she was seen in the emergency room as well. Now, reports abdominal pain, vomiting has resolved. Diarrhea is resolving. Was also given H pylori triple therapy from the emergency room, and has started taking amoxicillin. Main complaint today is occasional nausea. H pylori testing was positive as expected. She is here to discuss treatment. 06/11/22: Feels well today no acute gastroitestinaly complaints today. Nausea and dyspepsia has resolved. Completed quad therapy 2 weeks ago. Has stopped PPI as well. Did not remember to do the H pylori testing prior to this visit. 09/01/22: Pt to requested a follow up in office today due to recent development of fecal incontinence. Has been going on for almost 3 months. Constipated at baseline. Passes soft to sometimes formed stool. Most pronounced during day time while she is doing her daily chores. NO urinary incontinence. Obstetric hx is pertinent for x5 vaginal deliveries. Largest baby was almost 10 lbs with which she also developed perineal tears, also has required forceps assisted delivery. Sexually active with hx of anal receptive intercourse most recently 3 weeks ago. 07/18/23: Here after PCP ordered US RUQ for vague R sided discomfort which shows ? fatty liver. Pt reports intermittent LOWER r sided abd pain assoc with constipation. No N/V, no pruritus. Has DM which is well controlled. Has lost almost 15 lbs since she was last seen. On Mounjaro. LFTs not available. Hep serologies neg 2022. US Liver: 1. There is generalized increase in hepatic echotexture, consistent with fatty infiltration or hepatocellular disease. Please correlate clinically. A lobulated hepatic contour favors hepatocellular disease. No focal hepatic mass or intrahepatic biliary dilatation is seen. 2. Technically limited ultrasound examination, in particular of the pancreas and left kidney. Of note - prev complaint of severe constipation with occ fecal incontinence is resolved. 01/18/24: Here for routine follow up. Reports no acute GI issues. Labs reviewed. Fib 4 now 1.47. Pt reports shes off mounjaro due to c/o hairloss. 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 Also incidentally noted to have mid esophageal wall thickening on CTA coronary. Does not report any epigastric burning or pain. No dysphagia. However she does have intermittent RUQ pain and discomfort. Not always with food. Nausea + PFSH Medical History (Updated 10/24/24 @ 18:20 by Nirmala Noriega MD) Fatty liver Subclinical hyperthyroidism Chest discomfort CAD (coronary artery disease) Right hand pain Numbness and tingling in left hand Trigger finger, right Hyperlipidemia Diabetes GERD (gastroesophageal reflux disease) Depression Anxiety HTN (hypertension) Surgical History (Updated 10/23/24 @ 13:39 by Rimma Welch RN) History of esophagogastroduodenoscopy (EGD) Hx of cardiac catheterization Hx of colonoscopy History of hand surgery Family History Maternal Aunt Dialysis patient Hypertension Diabetes Mother Hypertension Diabetes Father Diabetes Hypertension Social History Alcohol intake: never Patient Tobacco Use Status: Never used Tobacco Cigarettes Per Day: 2 Current occupational status: unemployed Current occupation: right handed Review of Systems Const All systems reviewed & are unremarkable except as noted in HPI and below Physical Exam Vital Signs: Last Vital Signs Pulse 77 09/03/24 13:13 BP 123/77 09/03/24 13:13 BMI result Body Mass Index 32.1 No apparent distress Nonicteric Abdomen soft, nondistended Alert and oriented x3, normal gait Assessment & Plan Assessment & Plan (1) Abnormal CT scan, chest: Code(s): R93.89 - Abnormal findings on diagnostic imaging of other specified body structures Category: Medical (2) Fatty liver: Code(s): K76.0 - Fatty (change of) liver, not elsewhere classified Category: Medical (3) Right upper quadrant pain: Code(s): R10.11 - Right upper quadrant pain Category: Medical Plan # Esophageal wall thickening: incidentally noted on CTA. Pt asymptomatic. Will set up for diagnostic egd to r.o esophagitis, stricture or mass. # RUQ pain Ddx include biliary, from hepatomegaly and liver capsule distention, ascites, MSK. Plan: - labs as below - US abd ordered follow up after egd Orders: Orders Complete Blood Count no Diff 3 Months K76.0 - Fatty (change of) liver, not elsewhere classified Prothrombin Time INR 3 Months K76.0 - Fatty (change of) liver, not elsewhere classified Comprehensive Met. Panel 3 Months K76.0 - Fatty (change of) liver, not elsewhere classified US abdomen complete 09/03/24 K76.0 - Fatty (change of) liver, not elsewhere classified Coding Level of Care Code Est Pt Level 4 (97821) Diagnoses Abnormal CT scan, chest R93.89 Fatty liver K76.0 Right upper quadrant pain R10.11
== END 2024-09-03 14:06 | disposition home or self-care (01) ==
LOC: HO.HGI 12:58
PROVIDERS: PCP Family Medicine; Visit Provider Internal Medicine
DX: R93.89 Abnormal findings on diagnostic imaging of other specified body structures (principal); K76.0 Fatty (change of) liver, not elsewhere classified; R10.11 Right upper quadrant pain
CPT/HCPCS: 99214

== ENCOUNTER 2024-10-25 08:18 | Day surgery (SDC) | payer MEDICAID, SELFPAY ==
--- OUTSIDE RECORDS SUMMARY | 2024-10-03 13:34 | XMS_ITS | Clinical Summary ---
Author Organization [address] [place] [address] Address [address] [place] [address] Phone Care Team Providers Care Farmer Vegetable Name Role Phone Kaye Gracefer Agustin DE JESUS Primary Care Provider [phone]- [phone] Allergies Active Allergy Reactions Criticality Noted Date Comments Atorvastatin 10/02/2012 Other Reaction(s): muscle cramps Other reaction(s): Muscle cramp / pain , muscle cramps Enalapril Rash,Shortness of breath,Unknown High 12/16/2011 Other Reaction(s): Rash/Dermatitis, rash/sob Other reaction(s): Shortness of breath rash/sob Hydrochlorothiazide Unknown 09/07/2022 Other reaction(s): Unknown Lisinopril Angioedema,Hives,Romana r tness of breath High 06/04/2010 Other Reaction(s): Rash/Dermatitis Other reaction(s): Shortness of breath Other reaction(s): HIVES,THROAT SWELLING Other Reaction(s): HIVES,THROAT SWELLING Metoprolol Unknown 05/02/2012 Other reaction(s): Unknown Patient does not remember Patient does not remember Metronidazole Unknown 05/19/2012 Other Reaction(s): ? palpitations Other reaction(s): Unknown Other reaction(s): ? palpitations, Altered Heart Rate Other reaction(s): ? palpitations, Altered Heart Rate Oxycodone 03/31/2010 Other Reaction(s): Vomiting Other reaction(s): vomiting Other reaction(s): vomiting Other reaction(s): vomiting Other reaction(s): vomiting Medications acetaminophen (TYLENOL) 325 mg tablet TOME SHANELLE TABLETA VIA ORAL CADA 8 HORAS JOSÉ SEA NECESARIO PARA EL DOLOR OR FEVER Active amLODIPine (NORVASC) 5 mg tablet TAKE 1.5 TABLETS VIA ORAL SHANELLE VEZ TODOS [place] SILVER Active ammonium lactate (AMLACTIN) 12 % cream use daily as needed 1 Active ascorbic acid (VITAMIN C) 250 mg tablet TOME SHANELLE TABLETA VIA ORAL DOS VECES AL PER WITH FERROUS SULFATE IRON) Active aspirin 81 mg EC tablet Take 1 tablet (81 mg total) by mouth. 3 Active baclofen (LIORESAL) 10 mg tablet Take one tablet TID PRN 4 Active busPIRone (BUSPAR) 15 mg tablet Take 1 tablet (15 mg total) by mouth 2 (two) times a day. Active butalbital-acetam inophen-caffeine (FIORICET, ESGIC) 50-325-40 mg per tablet TAKE ONE TABLET BY MOUTH EVERY 4 HOURS NEEDED. MAX 2 TABLETS PER 24 HOURS 2 Active cyanocobalamin (VITAMIN B-12) 1,000 mcg tablet Take 1 tablet (1,000 mcg total) by mouth daily. 5 11/15/19 25 Active cyclobenzaprine (FLEXERIL) 10 mg tablet Take 1 tablet (10 mg total) by mouth 2 times daily as needed. 5 07/05/19 26 Active Farxiga 10 mg tablet TOME SHANELLE TABLETA VIA ORAL CADAgustin AVITIA Active diphenhydrAMINE (BENADRYL) 25 mg capsule Take 1 capsule (25 mg total) by mouth once daily as needed. 9 Active escitalopram (LEXAPRO) 20 mg tablet Take 1 tablet (20 mg total) by mouth 1 (one) time each day in the morning. Active Elena Good U-300 Insulin 300 unit/mL (1.5 mL) CONCENTRATED injection pen Inject 62 Units under the skin daily. 4 Active Eye Itch Relief 0.025 % (0.035 %) ophthalmic solution INSTILL 1 DROP INTO THE AFFECTED EYE S) IF NEEDED IN THE MORNING AND AT BEDTIME FOR ITCHING Active FreeStyle Lancets 28 gauge lancets USE TO TEST BLOOD SUGAR ETHAN VECES AL PER 5 Active nitroglycerin (NITROSTAT) 0.[address] 1 tablet (0.4 mg total) under the tongue. 2 Active omeprazole (PriLOSEC) [address] capsule TOME SHANELLE CAPSULA VIA ORAL DOS VECES AL PER BEFORE BREAKFAST AND SUPPER Active pregabalin (LYRICA) 100 mg capsule TOME SHANELLE CAPSULA VIA ORAL ETHAN VECES AL PER Active rosuvastatin (CRESTOR) 40 mg tablet Take 1 tablet (40 mg total) by mouth 1 (one) time each day. Active Ozempic 0.25 mg or 0.5 mg (2 mg/3 mL) injection pen inject 0.5mg under the skin once a week Active oxyCODONE-acetami nophen (PERCOCET) 5-325 mg per tablet Take 1 tablet by mouth. 09/14/19 25 Encounters Date Type Department Care Team Description 09/10/2024 1:30 PM EDT Consult Plastic & Reconstructive Surgery - [address] [address] Yeimi Stanford PA Abdominal pannus (Primary Dx); Skin laxity; Lipodystrophy from Last 3 Months Surgical History Surgery Date Site/Laterality Comments WRIST SURGERY Right PROCEDURE: HISTORICAL WRIST SURGERY; COMMENT: 30 years ago Medical History Medical History Date Comments Depression DX:Depression Anxiety disorder DX:Anxiety diso rder Mixed hyperlipidemia DX:Mixed hy perlipidemia; COMMENT: diabetes Wears glasses DX:Wears glasses High blood pressure DX:High bloo d pressure Social History Tobacco Use Types Packs/Day Years Used Date Smoking Tobacco: Former Cigarettes Smokeless Tobacco: Former Tobacco Cessation:Counseling Given: Not Answered Alcohol Use Standard Drinks/Week Comments Never 0 (1 standard drink = 0.6 oz pur e alcohol) Comments Unknown Sex and Gender Information Value Date Recorded Sex Assigned at Not on file Legal Sex Female 11:07 AM EDT Gender Identity Not on file Sexual Orientation Not on file Obstetrics History Last Filed Vital Signs Vital Sign Reading Time Taken Comments Blood Pressure 135/78 09/10/2024 1:36 PM EDT Pulse 83 09/10/2024 1:36 PM EDT Temperature - - Respiratory Rate - - Oxygen Saturation - - Inhaled Oxygen Concentration - - Weight 79.3 kg (174 lb 12.8 oz) 09/10/2024 1:36 PM EDT Height 152.4 cm (5') 09/10/2024 1:36 PM EDT Body Mass Index 34.14 09/10/2024 1:36 PM EDT Plan of Treatment Health Maintenance Due Date Last Done Comments Breast Cancer Screening 1970 Diabetes: Annual Foot Exam 1980 Cervical Cancer Screening: Pap Smear 1991 Colorectal Cancer Screening: Colonoscopy 10/06/2023 Diabetes: Annual Urine Albumin-Creatinine Ratio (uACR) 10/06/2023 Social Influencers of Health Screening 10/06/2023 Depression Screening 03/14/2024 Influenza Vaccine (#1) 2024 , 02/09/2023, 01/12/2022, Additional history exists Diabetes: Blood Sugar Control Test (HGBA1C) 01/03/2025 07/04/2024 Diabetes: Annual Retina Eye Exam 07/17/2025 07/17/2024 Diabetes: Annual GFR (Glomerular Filtration Rate) 08/30/2025 08/30/2024, 07/04/2024 Hypertension/CHF/CAD Annual BMP Blood Test 08/30/2025 08/30/2024, 07/04/2024 Cholesterol Screening (Lipid Panel) 08/30/2029 08/30/2024, 07/04/2024 DTaP,Tdap,and Td Vaccines (4 - Td or Tdap) 11/20/2032 11/20/2022, 03/01/2013, 01/16/1998 Hepatitis B Vaccines Completed 11/10/2016, 06/02/2016, 03/02/2016, Additional history exists Hepatitis A Vaccines Completed 10/11/2017, 12/22/19 Zoster Vaccines Completed 06/25/2021, 04/20/2021 Pneumococcal Vaccine: 50+ Years Completed 06/07/2023, 02/05/2014, 05/10/2007, Additional history exists COVID-19 Vaccine Completed 01/06/2024, , 06/08/2022, Additional history exists HIV Screening Completed 07/04/2024 Hepatitis C Screening Completed 07/04/2024 HIB Vaccines Aged Out No longer eligi [...] on patient's age to complete this topic Insurance MEDICAID - [place] [facility] MEDICAID Care Teams Farmer Vegetable Relationship Specialty Start Date End Date Angelique Grace DO [address] [place] [address] PCP - General 07/23/11
--- OUTSIDE RECORDS SUMMARY | 2024-10-03 13:34 | XMS_ITS | Clinical Summary ---
Author Organization [facility] Address [address] [facility] [address] [place] [id number] Phone Care Team Providers Care Skip Loader Name Role Phone Angelique Grace Primary Care Provider [phone] Allergies Active Allergy Reactions Criticality Noted Date Comments Oxycodone 03/31/2010 Other reaction(s): vomiting Other reaction(s): vomiting Medications amLODIPine (NORVASC) 5 MG tablet Take 5 mg by mouth daily. Active aspirin 81 MG EC tablet Take 81 mg by mouth. 02/15/2023 Active busPIRone (BUSPAR) 15 MG tablet Take 15 mg by mouth 2 (two) times a day. 08/30/2023 Active escitalopram oxalate (LEXAPRO) 20 MG tablet Take 20 mg by mouth daily. 08/30/2023 Active TOUJEO SOLOSTAR U-300 INSULIN 300 unit/mL (1.5 mL) injection pen Inject 40 Units under the skin. 09/16/2023 Active MOUNJARO 5 mg/0.5 mL PnIj Inject 5 mg under the skin once a week. Active Active Problems Problem Noted Date Diagnosed Date Skin laxity 10/14/2023 Pannus, abdominal 10/14/2023 Diastasis recti 10/14/2023 Intertrigo 10/14/2023 Nicotine abuse 10/14/2023 Family History Medical History Relation Comments Diabetes Father Heart block Mother Hypertension Mother Relation Status Comments Father Mother Social History Tobacco Use Types Packs/Day Years Used Date Smoking Tobacco: Every Day Cigarettes Tobacco Cessation:Ready to Q uit: Not Asked; Counseling Given: Not Answered Comments:1 cigarette per day Alcohol Use Standard Drinks/Week Comments Yes 1 (1 standard drink = 0.6 oz pur e alcohol) Education Answer Date Recorded Are you interested in more education? Not on emmie e 08/02/2023 Are you concerned about learning? Not on file 08/02/2023 No 08/02/2023 No 08/02/2023 Digital Access Answer Date Recorded No 08/02/2023 No 08/02/2023 Reliable internet access at home? Not on file 08/02/2023 Device with a working camera? Not on file Comments Unknown Sex and Gender Information Value Date Recorded Sex Assigned at Not on file Legal Sex Female 9:34 PM EDT Gender Identity Not on file Sexual Orientation Not on file Last Filed Vital Signs Vital Sign Reading Time Taken Comments Blood Pressure 154/89 10/11/2023 2:17 PM EDT Pulse 69 10/11/2023 2:17 PM EDT Temperature - - Respiratory Rate - - Oxygen Saturation - - Inhaled Oxygen Concentration - - Weight 75.4 kg (166 lb 3.2 oz) 10/11/2023 2:17 P M EDT Height 152.4 cm (5') 10/11/2023 2:17 PM EDT Body Mass Index 32.46 10/11/2023 2:17 PM EDT Plan of Treatment Health Maintenance Due Date Last Done Comments DEPRESSION SCREENING 1982 SMOKING Hx and SMOKELESS TOBACCO SCREENING 1983 HEPATITIS C SCREENING 1988 HIV ONE-TIME SCREENING (18-6 5 YEARS) 1988 PAP SMEAR 1991 PNEUMOCOCCAL VACCINES (50+ years) (2 of 2 - PCV) 02/05/2015 02/05/2014, 05/10/2007, 12/26/2000 COLOGUARD 2015 COLONOSCOPY 2015 COLORECTAL CANCER SCREENING 2015 FIT TEST 2015 FOBT 2015 SIGMOIDOSCOPY 2015 VIRTUAL COLONOSCOPY 2015 ZOSTER VACCINES (1 of 2) 2020 COVID-19 VACCINE (1 - 2023-2 5 season) 2023 MAMMOGRAM 03/09/2024 03/09/2022, 08/23/2018 SCREENING FOR DIABETES 09/15/2026 09/16/2023 LIPID PANEL 07/17/2028 07/18/2023 Adult Td,Tdap Booster 11/20/2032 11/20/2022 , 03/01/2013 HEPATITIS A VACCINES Aged Out No long er eligible based on patient's age to complete this topic HIB VACCINES Aged Out No longer eligi ble based on patient's age to complete this topic MENINGOCOCCAL VACCINES (ACWY) Aged Out No longer eligible based on patient's age to complete this topic MENINGOCOCCAL VACCINES (B) Aged Out N o longer eligible based on patient's age to complete this topic Medical Devices Not on file [place] [address] [place] [address] [place] [address] [place] [address] [place] [address] [place] [address] ACO Care Teams Skip Loader Relationship Specialty Start Date End Date Angelique Grace DO [address] [place] [address] PCP - General Family Medicine 08/02/23 Additional Source Comments The information contained in this document represents components of the legal health record. It is not the complete legal health record.[facility]
[2024-10-23 13:38] VITALS: BMI 32.1
--- NOTE | 2024-10-23 14:03 | HO.ANESPROP2 ---
Documented by User: Judith Smith NP 10/23/24 14:36 HPI - Anesthesia Eval Consult details Narrative: 54 yr old female for upper endoscopy. Type 2 DM: Last A1C 06/2024 7.9% CAD w/o angina: [place] [facility] [place], Dr. Bruno; last seen 04/2024, deemed low risk for perioperative cardiovascular morbidity/mortality at that time. Coronary CTA 03/2024 as follow up to abnormal stress test 12/2023: no evidence of hemodynamically significant coronary artery disease. Minimal stenoses less than 25% in LAD ostium, and proximal RCA. Medical mgt recommended. Subclinical hyperthyroidism: follows with [facility] [place], last TSH 0.46 08/2024 Anesthesia Pre-Procedure Meds Is the patient on any of the following meds?: GLP1/DPP4 and SGLT2 Inhib PMFSH Active Problems Active Problems: All Active Problems Obesity (BMI 30.0-34.9) (Acute) Pre-operative cardiovascular examination (Acute) Fatty liver (Acute) Radiculopathy, lumbar region (Acute) Chronic pain syndrome (Acute) Sacroiliac joint dysfunction of both sides (Acute) Bilateral sacroiliitis (Acute) Spondylosis of lumbar region without myelopathy or radiculopathy (Acute) Disc degeneration, lumbar (Acute) Hx of cardiac cath (Acute) Coronary arteriosclerosis (Acute) Carpal tunnel syndrome of right wrist (Acute) Carpal tunnel syndrome of left wrist (Acute) Trigger finger, left middle finger (Acute) Constipation (Acute) Fecal incontinence (Acute) Patellofemoral arthritis of right knee (Acute) H. pylori infection (Acute) Bilateral hand numbness (Acute) Diabetes mellitus (Acute) Trigger finger, left ring finger (Acute) Trigger finger, right ring finger (Acute) Subclinical hyperthyroidism (Acute) Hyperlipidemia (Acute) HTN (hypertension) (Acute) Past Medical History Medical History (Updated 10/24/24 @ 18:20 by Nirmala Noriega MD) Fatty liver Subclinical hyperthyroidism Chest discomfort CAD (coronary artery disease) Right hand pain Numbness and tingling in left hand Trigger finger, right Hyperlipidemia Diabetes GERD (gastroesophageal reflux disease) Depression Anxiety HTN (hypertension) Family History Family History Maternal Aunt Dialysis patient Hypertension Diabetes Mother Hypertension Diabetes Father Diabetes Hypertension Surgical History Surgical History (Updated 10/25/24 @ 10:15 by Stephania Viera RN) History of esophagogastroduodenoscopy (EGD) Hx of cardiac catheterization History of hand surgery Social History Social History Alcohol intake: never Patient Tobacco Use Status: Never used Tobacco Cigarettes Per Day: 2 Use of substances other than those prescribed or required for medical reasons: No Advance Directives: No Advance Directives Information Provided: Yes Patient : No : No Poor oral hygiene: No Current occupational status: unemployed Current occupation: right handed Meds Allergies Allergy/AdvReac Type Severity Reaction Status Date / Time enalapril (ENALAPRIL) Allergy Severe hives/throat Verified 10/23/24 13:27 swelling lisinopril (LISINOPRIL) Allergy Severe hives/throat Verified 10/23/24 13:27 swelling oxycodone Allergy Intermediate Vomiting Verified 10/23/24 13:26 hydrochlorothiazide Allergy Unknown Unknown Verified 10/23/24 13:26 (HYDROCHLOROTHIAZIDE) metoprolol (METOPROLOL) Allergy Unknown Unknown Verified 10/23/24 13:26 metronidazole (METRONIDAZOLE) Allergy Unknown Unknown Verified 10/23/24 13:26 Home Medications ?Medication ?Instructions ?Recorded ?Confirmed ?Last Taken ?Type gabapentin 300 mg capsule 300 mg PO BEDTIME 02/04/20 10/23/24 Unknown History amlodipine 5 mg tablet 7.5 mg PO DAILY 03/22/22 10/23/24 Unknown History cholecalciferol (vitamin D3) 50 50 mcg PO DAILY 03/22/22 10/23/24 Unknown History mcg (2,000 unit) tablet omega-3 300 mg-dha 120 mg-epa 180 1 cap PO BID 03/22/22 10/23/24 Unknown History mg-fish oil 1,000 mg capsule pravastatin 40 mg tablet 40 mg PO BEDTIME 03/22/22 10/23/24 Unknown History aspirin 81 mg tablet,delayed 81 mg PO DAILY 04/30/22 10/23/24 10/11/24 History release (Adult Aspirin Regimen) blood sugar diagnostic (FreeStyle #10 ea 04/30/22 04/05/24 Unknown History Lite Strips) sennosides 8.6 mg capsule (senna) 8.6 mg PO BEDTIME 04/30/22 10/23/24 Unknown History acetaminophen 650 mg 650 mg PO BID PRN fever 06/11/22 10/23/24 Unknown History tablet,extended release cetirizine 10 mg tablet 10 mg PO DAILY 09/01/22 10/23/24 Unknown History baclofen 10 mg tablet 10 mg PO TID PRN Pain 06/22/23 10/23/24 Unknown History ibuprofen 600 mg tablet (IBU) 600 mg PO Q8H PRN pain 06/22/23 10/23/24 Unknown History buspirone 15 mg tablet 15 mg PO BID 07/18/23 10/23/24 Unknown History semaglutide 0.25 mg or 0.5 mg (2 2 mg subcut QWEEK 04/24/24 10/23/24 10/17/24 History mg/3 mL) subcutaneous pen injector (Ozempic) dapagliflozin propanediol 10 mg 10 mg PO QAM 09/03/24 10/23/24 10/17/24 History tablet (Farxiga) insulin glargine U-300 conc 300 50 unit subcut DAILY 09/03/24 10/23/24 Unknown History unit/mL (1.5 mL) subcutaneous pen (Toujeo SoloStar U-300 Insulin) pregabalin 100 mg capsule 100 mg PO TID 09/03/24 10/23/24 Unknown History rosuvastatin 40 mg tablet 40 mg PO DAILY 09/03/24 10/23/24 Unknown History Exam Height,Weight and Vital Signs: Height 5 ft 1 in Weight 77.111 kg Pertinent Lab Results Pertinent Lab Results: Laboratory Tests 08/30/24 14:34 WBC 5.6 RBC 4.57 Hgb 13.4 Hct 41.4 Plt Count 209 Sodium 142 Potassium 4.1 BUN 14 Creatinine 0.68 Narrative Narrative: Cardiolite stress test 12/2023 Impression: 1. Myocardial perfusion imaging study shows apical infarct. No clear ischemia. 2. Gated LVEF is > 70% during stress; 68% during rest. 3. Transient ischemic dilatation not present. Documented by User: Malissa Steiner NP 10/24/24 10:53 PMF Past Medical History Medical History (Updated 10/24/24 @ 18:20 by Nirmala Noriega MD) Fatty liver Subclinical hyperthyroidism Chest discomfort CAD (coronary artery disease) Right hand pain Numbness and tingling in left hand Trigger finger, right Hyperlipidemia Diabetes GERD (gastroesophageal reflux disease) Depression Anxiety HTN (hypertension) Family History Family History Maternal Aunt Dialysis patient Hypertension Diabetes Mother Hypertension Diabetes Father Diabetes Hypertension Surgical History Surgical History (Updated 10/25/24 @ 10:15 by Stephania Viera RN) History of esophagogastroduodenoscopy (EGD) Hx of cardiac catheterization History of hand surgery Social History Social History Alcohol intake: never Patient Tobacco Use Status: Never used Tobacco Cigarettes Per Day: 2 Use of substances other than those prescribed or required for medical reasons: No Advance Directives: No Advance Directives Information Provided: Yes Patient : No : No Poor oral hygiene: No Current occupational status: unemployed Current occupation: right handed Meds Allergies Allergy/AdvReac Type Severity Reaction Status Date / Time enalapril (ENALAPRIL) Allergy Severe hives/throat Verified 10/23/24 13:27 swelling lisinopril (LISINOPRIL) Allergy Severe hives/throat Verified 10/23/24 13:27 swelling oxycodone Allergy Intermediate Vomiting Verified 10/23/24 13:26 hydrochlorothiazide Allergy Unknown Unknown Verified 10/23/24 13:26 (HYDROCHLOROTHIAZIDE) metoprolol (METOPROLOL) Allergy Unknown Unknown Verified 10/23/24 13:26 metronidazole (METRONIDAZOLE) Allergy Unknown Unknown Verified 10/23/24 13:26 Home Medications ?Medication ?Instructions ?Recorded ?Confirmed ?Last Taken ?Type gabapentin 300 mg capsule 300 mg PO BEDTIME 02/04/20 10/23/24 Unknown History amlodipine 5 mg tablet 7.5 mg PO DAILY 03/22/22 10/23/24 Unknown History cholecalciferol (vitamin D3) 50 50 mcg PO DAILY 03/22/22 10/23/24 Unknown History mcg (2,000 unit) tablet omega-3 300 mg-dha 120 mg-epa 180 1 cap PO BID 03/22/22 10/23/24 Unknown History mg-fish oil 1,000 mg capsule pravastatin 40 mg tablet 40 mg PO BEDTIME 03/22/22 10/23/24 Unknown History aspirin 81 mg tablet,delayed 81 mg PO DAILY 04/30/22 10/23/24 10/11/24 History release (Adult Aspirin Regimen) blood sugar diagnostic (FreeStyle #10 ea 04/30/22 04/05/24 Unknown History Lite Strips) sennosides 8.6 mg capsule (senna) 8.6 mg PO BEDTIME 04/30/22 10/23/24 Unknown History acetaminophen 650 mg 650 mg PO BID PRN fever 06/11/22 10/23/24 Unknown History tablet,extended release cetirizine 10 mg tablet 10 mg PO DAILY 09/01/22 10/23/24 Unknown History baclofen 10 mg tablet 10 mg PO TID PRN Pain 06/22/23 10/23/24 Unknown History ibuprofen 600 mg tablet (IBU) 600 mg PO Q8H PRN pain 06/22/23 10/23/24 Unknown History buspirone 15 mg tablet 15 mg PO BID 07/18/23 10/23/24 Unknown History semaglutide 0.25 mg or 0.5 mg (2 2 mg subcut QWEEK 04/24/24 10/23/24 10/17/24 History mg/3 mL) subcutaneous pen injector (Ozempic) dapagliflozin propanediol 10 mg 10 mg PO QAM 09/03/24 10/23/24 10/17/24 History tablet (Farxiga) insulin glargine U-300 conc 300 50 unit subcut DAILY 09/03/24 10/23/24 Unknown History unit/mL (1.5 mL) subcutaneous pen (Toujeo SoloStar U-300 Insulin) pregabalin 100 mg capsule 100 mg PO TID 09/03/24 10/23/24 Unknown History rosuvastatin 40 mg tablet 40 mg PO DAILY 09/03/24 10/23/24 Unknown History Exam Narrative Narrative: Coronary CTA 2024 Cardiolite stress test 12/2023 Impression: 1. Myocardial perfusion imaging study shows apical infarct. No clear ischemia. 2. Gated LVEF is > 70% during stress; 68% during rest. 3. Transient ischemic dilatation not present. Documented by User: Brannon Oakes MD 10/25/24 10:52 PMF Past Medical History Medical History (Updated 10/24/24 @ 18:20 by Nirmala Noriega MD) Fatty liver Subclinical hyperthyroidism Chest discomfort CAD (coronary artery disease) Right hand pain Numbness and tingling in left hand Trigger finger, right Hyperlipidemia Diabetes GERD (gastroesophageal reflux disease) Depression Anxiety HTN (hypertension) Family History Family History Maternal Aunt Dialysis patient Hypertension Diabetes Mother Hypertension Diabetes Father Diabetes Hypertension Family history of problems with anesthesia: No Surgical History Surgical History (Updated 10/25/24 @ 10:15 by Stephania Viera RN) History of esophagogastroduodenoscopy (EGD) Hx of cardiac catheterization History of hand surgery History of Problems with Anesthesia: No Social History Social History Alcohol intake: never Patient Tobacco Use Status: Never used Tobacco Cigarettes Per Day: 2 Use of substances other than those prescribed or required for medical reasons: No Advance Directives: No Advance Directives Information Provided: Yes Patient : No : No Poor oral hygiene: No Current occupational status: unemployed Current occupation: right handed Meds Allergies Allergy/AdvReac Type Severity Reaction Status Date / Time enalapril (ENALAPRIL) Allergy Severe hives/throat Verified 10/23/24 13:27 swelling lisinopril (LISINOPRIL) Allergy Severe hives/throat Verified 10/23/24 13:27 swelling oxycodone Allergy Intermediate Vomiting Verified 10/23/24 13:26 hydrochlorothiazide Allergy Unknown Unknown Verified 10/23/24 13:26 (HYDROCHLOROTHIAZIDE) metoprolol (METOPROLOL) Allergy Unknown Unknown Verified 10/23/24 13:26 metronidazole (METRONIDAZOLE) Allergy Unknown Unknown Verified 10/23/24 13:26 Home Medications ?Medication ?Instructions ?Recorded ?Confirmed ?Last Taken ?Type gabapentin 300 mg capsule 300 mg PO BEDTIME 02/04/20 10/23/24 Unknown History amlodipine 5 mg tablet 7.5 mg PO DAILY 03/22/22 10/23/24 Unknown History cholecalciferol (vitamin D3) 50 50 mcg PO DAILY 03/22/22 10/23/24 Unknown History mcg (2,000 unit) tablet omega-3 300 mg-dha 120 mg-epa 180 1 cap PO BID 03/22/22 10/23/24 Unknown History mg-fish oil 1,000 mg capsule pravastatin 40 mg tablet 40 mg PO BEDTIME 03/22/22 10/23/24 Unknown History aspirin 81 mg tablet,delayed 81 mg PO DAILY 04/30/22 10/23/24 10/11/24 History release (Adult Aspirin Regimen) blood sugar diagnostic (FreeStyle #10 ea 04/30/22 04/05/24 Unknown History Lite Strips) sennosides 8.6 mg capsule (senna) 8.6 mg PO BEDTIME 04/30/22 10/23/24 Unknown History acetaminophen 650 mg 650 mg PO BID PRN fever 06/11/22 10/23/24 Unknown History tablet,extended release cetirizine 10 mg tablet 10 mg PO DAILY 09/01/22 10/23/24 Unknown History baclofen 10 mg tablet 10 mg PO TID PRN Pain 06/22/23 10/23/24 Unknown History ibuprofen 600 mg tablet (IBU) 600 mg PO Q8H PRN pain 06/22/23 10/23/24 Unknown History buspirone 15 mg tablet 15 mg PO BID 07/18/23 10/23/24 Unknown History semaglutide 0.25 mg or 0.5 mg (2 2 mg subcut QWEEK 04/24/24 10/23/24 10/17/24 History mg/3 mL) subcutaneous pen injector (Ozempic) dapagliflozin propanediol 10 mg 10 mg PO QAM 09/03/24 10/23/24 10/17/24 History tablet (Farxiga) insulin glargine U-300 conc 300 50 unit subcut DAILY 09/03/24 10/23/24 Unknown History unit/mL (1.5 mL) subcutaneous pen (Toujeo SoloStar U-300 Insulin) pregabalin 100 mg capsule 100 mg PO TID 09/03/24 10/23/24 Unknown History rosuvastatin 40 mg tablet 40 mg PO DAILY 09/03/24 10/23/24 Unknown History Exam Airway Mallampati Class: II TM Dist: >3cm Neck ROM: Full Assessment and Plan Assessment Anesthesia Assessment: Anesthesia Plan Discussed and Chart Reviewed Final Anesthetic Review Family History of Problems with Anesthesia: No History of Problems with Anesthesia: No NPO: Yes ASA Class: III Final Preanesthetic Review: No Changes in Pt Med Stat, Meds/Allgs Chart Reviewed, Consent Obtained/Reviewed and Anes Risks/Benef Reviewed Patient Risk: Intermediate Procedure Risk: Low Anesthetic Plan Anesthetic Plan: TIVA Disposition: Standard PACU
--- NOTE | 2024-10-25 09:38 | MHC.SHP ---
Pre-Procedural Eval Section A - 24 Hr Update-Section A only Date of Service: 10/25/24 Section B - Complete if H&P > 30 days Chief Complaint: Abnormal CT of the chest Details of Present Illness: Fatty liver Subclinical hyperthyroidism Chest discomfort CAD (coronary artery disease) Right hand pain Numbness and tingling in left hand Trigger finger, right Hyperlipidemia Diabetes GERD (gastroesophageal reflux disease) Depression Anxiety HTN (hypertension) Surgical History (Updated 10/23/24 @ 13:39 by Rimma Welch RN) History of esophagogastroduodenoscopy (EGD) Hx of cardiac catheterization Hx of colonoscopy History of hand surgery Allergies: Allergies Allergy/AdvReac Type Severity Reaction Status Date / Time enalapril (ENALAPRIL) Allergy Severe hives/throat Verified 10/23/24 13:27 swelling lisinopril (LISINOPRIL) Allergy Severe hives/throat Verified 10/23/24 13:27 swelling oxycodone Allergy Intermediate Vomiting Verified 10/23/24 13:26 hydrochlorothiazide Allergy Unknown Unknown Verified 10/23/24 13:26 (HYDROCHLOROTHIAZIDE) metoprolol (METOPROLOL) Allergy Unknown Unknown Verified 10/23/24 13:26 metronidazole (METRONIDAZOLE) Allergy Unknown Unknown Verified 10/23/24 13:26 Review of Systems Review of Systems Comment: Ten point ROS negative Exam Exam Comment: Gen appear: No acute distress HEENT: no icterus Chest: No overt resp distress Abd: soft, nontender, nondistended Psych: Stable affect, answering questions appropriately Neuro: A/Ox3 noted to move all extremities spontaneously Ext: no peripheral edema Plan Diagnosis/Plan: Unchanged I have reviewed the history and physical and performed a pertinent physical examination on my patient. No changes have occurred unless specified. Time Spent With Patient Time: Total time managing care of this patient today ____ minutes.
[2024-10-25 10:04] VITALS: BP 126/83; PULSE 89; RESP 16; TEMP 35.9; O2SAT 97
[2024-10-25 10:12] LABS: Glucose, Whole Blood 200 mg/dL (60-115)
[2024-10-25 10:22] VITALS: BMI 32.6
[2024-10-25] MEDS: Lactated Ringers 1,000 ML 100 ML IVCONT (10:44)
--- NOTE | 2024-10-25 11:26 | P.OP_ITS ---
Operative Note Operative Note Date of Service: 10/25/24 Narrative: Procedure: Esophagogastroduodenoscopy Endoscopist: Nirmala Noriega MD Indication: Abnormal CT chest r/o esophagitis Anesthesia Provider: Dr Brannon Oakes Anesthesia Type: MAC EGD Procedure:?? The procedure, indications, preparation and potential complications were reviewed with the patient, who indicated understanding and gave written informed consent to proceed. A physical exam was performed. The endoscope was introduced through the mouth, and advanced to the second part of duodenum. The mucosa was carefully examined on slow withdrawal of the endoscope. The patient tolerated the procedure well. There were no immediate complications.? ? EGD Findings:? * Esophagus:? Normal mucosa noted in the entire esophagus. There was a deep diverticulum at 25 cm with with irregular squamocolumnar mucosa. This was not biopsied. The Z line was at 32 cm. Middle and lower esophagus forceps biopsies were obtained to rule out eosinophilic esophagitis. * Stomach:? Small amount of food stomach cardia obscuring visualization. Erythema and edema in the antrum. Retroflexion was performed in the cardia. Random cold forceps gastric biopsies were taken to rule out H Pylori infection. * Duodenum:? Normal mucosa was noted in the whole of the examined duodenum. ? EGD Impressions:? * Esophageal diverticulum at 25 cm * Normal esophageal mucosa (biopsy) * Food in stomach * Gastritis (biopsy) * Normal duodenum ?? Recommendations:?? * Follow biopsy results. Our office will call or send a letter with results within 7-10 days. * If H pylori +, patient will be prescribed eradication therapy followed by test of cure. * Avoid NSAIDs. * Barium swallow for further evaluation of esophageal diverticulum. * Would recommend referral to advanced endoscopy for diverticulectomy Above has been reviewed with the patient.
[2024-10-25 11:35] VITALS: BP 115/72; PULSE 76; RESP 18; TEMP 36.1; O2SAT 93
[2024-10-25 11:50] VITALS: BP 132/75; PULSE 82; RESP 18; TEMP 36.7; O2SAT 96
== END 2024-10-25 12:38 | disposition home or self-care (01) ==
PROVIDERS: PCP Family Medicine; Visit Provider Internal Medicine
PROC: 0DJ08ZZ Inspection of Upper Intestinal Tract, Via Natural or Artificial Opening Endoscopic (ICD-10-PCS; CPT 43235; principal; 2024-10-25 11:00)
DX: Q39.6 Congenital diverticulum of esophagus (principal); K29.60 Other gastritis without bleeding; T18.2XXA Foreign body in stomach, initial encounter; K76.0 Fatty (change of) liver, not elsewhere classified; E11.9 Type 2 diabetes mellitus without complications; I10 Essential (primary) hypertension; E78.5 Hyperlipidemia, unspecified; Z79.82 Long term (current) use of aspirin; Z79.899 Other long term (current) drug therapy; Z79.4 Long term (current) use of insulin; Z79.02 Long term (current) use of antithrombotics/antiplatelets
CPT/HCPCS: 43239; 82947; 88305; 88313; 88342; J2003; J2704

== ENCOUNTER → 2024-10-25 08:18 | Outpatient (BNV) | payer MEDICAID, SELFPAY | PROVIDERS: PCP Family Medicine; Visit Provider Internal Medicine | DX: K22.89 Other specified disease of esophagus (principal); K29.70 Gastritis, unspecified, without bleeding | CPT/HCPCS: 43239 ==

== ENCOUNTER → 2024-12-06 11:07 | Outpatient (REF) | payer MEDICAID, SELFPAY ==
--- OUTSIDE RECORDS SUMMARY | 2024-12-04 18:40 | XMS_ITS | Encounter Summary ---
Author Organization [employer] Address [address] [facility] 7t [place] [address] Care Team Providers Care Oil Speculator Name Role Phone Angelique Grace Primary Care Provider [phone] Yu Busby PharmD Unavailable [phone] Reason for Visit * Reason Comments Walk-In Nausea , headache, l eft arm pain, chest pain Encounter Details Date Type Department Care Team (Late st Contact Info) Description 12/04/2024 6:40 PM EDT Office Visit [facility] [address] [place] [address] Palma Felix FNP [address] [place] [address] Non-cardiac chest pain (Primary Dx) Social History Tobacco Use Types Packs/Day Years Used Date Smoking Tobacco: Former Cigarettes Passive Smoke Exposure: Past Smokeless Tobacco: Never Comments:Quit 1 year ago Alcohol Use Standard Drinks/Week Comments Never [...] Sign Reading Time Taken Comments Blood Pressure 151/92 12/04/2024 6:13 PM EDT Pulse 82 12/04/2024 6:13 PM EDT Temperature 37.4 C (99.4 F) 12/04/2024 6:13 PM EDT Respiratory Rate 20 12/04/2024 6:13 PM EDT Oxygen Saturation - - Inhaled Oxygen Concentration - - Weight 78.9 kg (174 lb) 12/04/2024 6:13 PM EDT Height 154.9 cm (5' 1 ) 12/04/2024 6:13 PM EDT Body Mass Index 32.88 12/04/2024 6:13 PM EDT documented in this encounter Progress Notes * Palma Felix, PAUL - 12/04/2024 6:40 PM EDT Subjective Patient ID: Maria C Lewis is a 54 y.o. female. Criminal Lawyer Heaven present and served as motor vehicle parts interpreter during visit. Pt reports chest pain, headache, nausea x 1 week. She also reports swelling to left leg x 1 month which decreases when she elevates her leg. The pt does have a history of CAD, HTN, DM. She reports she is feeling better today, but then after running some errands she felt the symptoms return. She states she has had these symptoms many times before. She denies any SOB or diaphoresis. Maria C denies symptoms at rest, new onset, angina, or angina that is unpredictable or progressive. Denies acute chest and back pain; rippingor tearing quality of pain. Denies pleuritic chest pain, cough, or leg swelling with associated pain, warmth, or erythema. Denies sudden onset of pleuritic chest pain and dyspnea. Denies retrosternalchest pain with history of vomiting. Maria C Had recent stress test as well as recent echocardiogram. Review of Systems Constitutional: Negative for appetite change, fatigue and fever. HENT: Negative for ear pain, rhinorrhea and sore throat. Eyes: Negative for discharge. Respiratory: Negative for cough and shortness of breath. Cardiovascular: Positive for chest pain and leg swelling. Gastrointestinal: Negative for abdominal pain, constipation, diarrhea, nausea and vomiting. Genitourinary: Negative for difficulty urinating. Musculoskeletal: Negative for arthralgias and myalgias. Skin: Negative for rash and wound. Neurological: Negative for headaches. Hematological: Negative for adenopathy. Objective BP (!) 151/92 Pulse 82 Temp 99.4 ??F (37.4 ??C) (Oral) Resp 20 Ht 5' 1 (1.549 m) Wt 174 lb (78.9 kg) BMI 32.88 kg/m?? Physical Exam Constitutional: Appearance: Normal appearance. HENT: Head: Normocephalic. Right Ear: Tympanic membrane, ear canal and external ear normal. Left Ear: Tympanic membrane, ear canal and external ear normal. Nose: Nose normal. Mouth/Throat: Mouth: Mucous membranes are moist. Eyes: Conjunctiva/sclera: Conjunctivae normal. Cardiovascular: Rate and Rhythm: Normal rate and regular rhythm. Heart sounds: Normal heart sounds. No friction rub. Pulmonary: Effort: Pulmonary effort is normal. Breath sounds: Normal breath sounds. No wheezing. Chest: Chest wall: Tenderness present. Musculoskeletal: General: Tenderness present. Normal range of motion. Cervical back: Normal range of motion and neck supple. Skin: General: Skin is warm and dry. Capillary Refill: Capillary refill takes less than 2 seconds. Neurological: Mental Status: She is alert and oriented to person, place, and time. Psychiatric: Mood and Affect: Mood normal. Behavior: Behavior normal. Thought Content: Thought content normal. Judgment: Judgment normal. Assessment/Plan Diagnoses and all orders for this visit: Non-cardiac chest pain Chest pain likely costochondritis EKG similar to past one may use acetaminophen, ibuprofen, or naproxen to control pain Pain reproducible during exam Heat therapy prn Cyclobenzaprine prn Zofran prn Avoid strenuous activity that worsens the pain. Keep leg elevated when sitting or laying Referral letter for podiatry given to patient today RTC if symptoms persist or worsen Red flag symptoms reviewed and advised to go to ER if any red flag symptoms occur FU with PCP - ECG 12 lead Other orders - cetirizine (ZyrTEC) 10 MG tablet; Take 1 tablet (10 mg) by mouth Once per day. - ondansetron (Zofran) 4 MG tablet; Take 1 tablet (4 mg) by mouth every 8 (eight) hours if needed for nausea or vomiting for up to 7 days. - baclofen (Lioresal) 10 MG tablet; Take one tablet TID PRN documented in this encounter Plan of Treatment Not on file documented as of this encounter Goals Goal Patient Goal Type Associated Problems Recent Progress Patient-Stated? Author Smoking cessation General No Yu Busby PharmD Hemoglobin A1c < 7 Result Component 9.1( 2:43 PM EDT) No Castillo Pradhan PharmD Record your blood sugar as directed Result Component No Yu Busby PharmD documented as of this encounter Procedures Procedure Name Priority Date/Time Associated Diagnosis Comments ECG 12-LEAD Routine 12/04/2024 7:38 PM EDT Non-cardiac chest pain documented in this encounter Results * ECG 12 lead (12/04/2024 7:38 PM EDT) Narrative Palma Felix FNP - 12/04/2024 7:38 PM EDT Sinus rhythm P/VT: 108/144 ms QRS: 112 ms QT/Qtc: 404/460 ms P/QRS/T axis: 33/16/24 deg Heart rate: 78 bpm 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
--- NOTE | 2024-12-06 11:11 | CA_ITS ---
Transthoracic Echocardiogram Patient (Last, First, Middle): Maria C Lewis, Gender: Female Date of : 1970 Age: 54 Procedure Date: 12/06/2024 Procedure Type: Transthoracic Echocardiogram Location: OP Height: 154.94 cm Weight: 78.93 kg BSA: 1.78 m2 Heart Rate: 73 bpm BP: 118 / 68 mmHg Personal Computer Specialist: TO/RC Referring MD: Shea Thrasher MD Office Clinician: Murtaza Bruno MD Symptoms: R60.0 LOWER EXT EDEMA Study Quality: Adequate w contrast ECG Rhythm: Sinus Conclusions: - 1. Low normal LV ejection fraction of 50-55% with grade 1 Diastolic dysfunction with possible basal inferior wall motion abnormality 2. Normal cardiac valvular Dopplers 3. Normal RV systolic pressure 4. No gross pericardial effusion Findings Procedure Information Contrast agent, definity, is being given per protocol without apparent complications. Left Ventricle Normal left ventricular cavity size. There is normal left ventricular wall thickness. The left ventricular systolic function is low normal. The visually estimated ejection fraction is between 50-55%. Spectral Doppler is indicative of an impaired relaxation filling pattern. E/E prime ratio is <8, consistent with normal filling pressures. Evidence suggests grade I (mild) diastolic dysfunction. based on the geometry of the left ventricular difficult to assess wall motion although basal inferior wall motion abnormality can not be ruled out Right Ventricle Normal right ventricular cavity size and systolic function. Atria The left atrium is normal in size. There is no evidence of interatrial shunt. The right atrium is normal in size. Aortic Valve Normal aortic valve structure and function. There is no aortic valve stenosis. There is no aortic valve regurgitation. Mitral Valve Normal mitral valve structure and function. There is mild mitral valve regurgitation. There is no mitral valve stenosis. Pulmonic Valve The pulmonic valve is likely normal. There is trace pulmonic valve regurgitation. Tricuspid Valve Normal tricuspid valve structure. There is trace tricuspid valve regurgitation. The right ventricular systolic pressure is normal. The right ventricular systolic pressure is 13 mmHg. Normal right atrial pressure. There is no evidence of pulmonary hypertension. Great Vessels All visible segments of the aorta are normal in size. The pulmonary artery was not well visualized. There is no dilatation of the ascending aorta measuring 2.90 cm. Small plaque is seen in the sino tubular ridge. Venous The inferior vena cava is normal in size and collapses greater than 50% with inspiration. Pericardium/Pleural There is no evidence of pericardial effusion. Prior Study Comparison Changes noted compared to prior study dated: 02/07/2023. LV function has marginally reduced. Possible basal inferior wall motion abnormality Measurements 2D Linear Measurements IVSd: 0.81 0.6-0.9/0.6-1.0 cm LVIDd: 4.71 3.9-5.3/4.2-5.9 cm LVIDd Index: 2.65 2.4-3.2/2.2-3.1 cm/m2 LVIDs: 3.60 2.0-3.6 cm LVPWd: 0.67 0.7-1.1 cm LA Diam: 3.80 2.7-3.8/3.0-4.0 cm LAIDs Index: 2.13 1.5-2.3 cm/m2 LV Mass: 137.52 67-162/88-224 g LV Mass Index: 77.26 43-95/49-115 g/m2 LVOT Diam: 2.00 3.0+(-)1.3 cm 2D Systolic Function EF 4C: 57.70 >55% EF 2C: 40.50 >55% EF BiP: 50.30 >55% Mitral Valve MV Pk E: 0.74 MV PK A: 0.94 MV Decel Time: 212.00 E/A: 0.80 E'Lateral: 5.22 E'Medial: 4.13 E/E' Med: 17.90 E/E' Lat: 14.20 PHT: 62.00 MVA PHT: 3.55 Decel Worth: 3.49 Aortic Valve AoV Pk Marco Antonio: 1.12 AoV Mn Marco Antonio: 0.76 AoV VTI: 0.22 AoV Pk Grad: 5.00 Aov Mn Grad: 3.00 KAYLEIGH Cont.VTI: 2.76 LVOT LVOT Pk Marco Antonio: 1.02 LVOT Mn Marco Antonio: 0.63 LVOT VTI: 0.19 LVOT Pk Grad: 4.00 LVOT Mn Grad: 2.00 LVOT Diam: 2.00 LVOT Area: 3.14 Diastolic Function MV Pk E: 0.74 MV Pk A: 0.94 E/A: 0.80 E'Medial: 4.13 E/E' Med: 17.90 E' Laterial: 5.22 E/E' Lat: 14.20 Right Ventricle TAPSE (mm): 18.30 TVS' Marco Antonio: 10.40 Tricuspid Valve TR Pk Marco Antonio: 1.62 TR Pk Grad: 10.00 RA Press: 3.00 RVSP: 13.00 Great Vessels Aorta Sinus of Valsalva: 3.10 2.0-3.5 cm Ao Asc: 2.90 2.1-3.4 cm Pulmonary Valve PV Pk Marco Antonio: 0.99 Peak PV Grad: 4.00 Updated in Other Vendor System with Status of Final Murtaza Bruno MD electronically signed on 12/06/2024 4:48:43 PM with status of Final
--- OUTSIDE RECORDS SUMMARY | 2024-12-06 15:37 | XMS_ITS | Encounter Summary ---
Author Organization [employer] Address [address] [facility] 7t [place] [address] Care Team Providers Care Anthropologist Physical Name Role Phone Angelique Grace DO Primary Care Provider [phone]- [phone] Yu Busby PharmD Unavailable [phone] Reason for Visit * Reason Comments Med Refill Encounter Details Date Type Department Care Team ([facility] st Contact Info) Description 02/14/2023 Refill [facility] [address] [place] [address] Yulisa Cedillo MD [address] [place] [address] Primary hypertension Social History Tobacco Use Types [...] as of this encounter Plan of Treatment Not on [...] documented as of this encounter Care Teams Anthropologist Physical Relationship Specialty Start Date End Date Angelique Grace DO [address] [place] [address] PCP - General Family Medicine 03/14/18 Yu Busby, PharmD [address] [place] [address] Pharmacist Internal Medicine 11/03/22 documented as of this encounter
--- OUTSIDE RECORDS SUMMARY | 2024-12-06 15:37 | XMS_ITS | Clinical Summary ---
Author Organization [facility] Address [address] [facility] [address] [place] [address] Phone Care Team Providers Care Overweaver Name Role Phone Angelique Grace Primary Care Provider [phone] Allergies Active Allergy Reactions Criticality Noted Date [...] 2015 ZOSTER VACCINES (1 of 2) 2020 MAMMOGRAM 03/09/2024 03/09/2022, 08/23/2018 INFLUENZA VACCINE (#1) 2024 COVID-19 VACCINE (1 - 2023-2 5 season) 2024 SCREENING FOR DIABETES 09/15/2026 09/16/2023 LIPID PANEL [...] Medical Devices Not on file Insurance [place]CO [place] [address] [place] [address] ACO Care Teams Overweaver Relationship Specialty Start Date End Date Angelique Grace DO [address] [place] [address] PCP - General Family Medicine 08/02/23 Additional Source Comments The information contained in this document represents components of the legal health record. It is not the complete legal health record.[facility]
--- OUTSIDE RECORDS SUMMARY | 2024-12-06 15:38 | XMS_ITS | Encounter Summary ---
Author Organization [employer] Address [address] [facility] 7t [place] [address] Care Team Providers Care Director Of Physician Practices Name Role Phone Angelique Grace DO Primary Care Provider [phone]- [phone] Yu Busby PharmD Unavailable [phone] Reason for Visit * Reason Onset Date Comments Medication Question 02/16/2024 Encounter Details Date Type Department Care Team ([facility] st Contact Info) Description 02/16/2024 Telephone [facility]INE [address] [place] [address] Angelique Grace DO [address] [place] [address] Medication Question Social History Tobacco Use Types [...] 9.1( 2:43 PM EDT) No Castillo Pradhan PharmYusef Record your blood sugar as directed Result Component No Yu Busby PharmD documented as of this encounter Visit Diagnoses Diagnosis Chronic right-sided low back pain without sciatica- Primary documented in this encounter Additional Health Concerns Assessment Noted Time PHQ-9 Depression Total Score: 0 06/09/19 11:27 AM EDT documented as of this encounter Care Teams Director Of Physician Practices Relationship Specialty Start Date End Date Angelique Grace DO [address] [place] [address] PCP - General Family Medicine 03/14/18 Yu Busby, PharmD [address] [place] [address] Pharmacist Internal Medicine 11/03/22 documented as of this encounter
--- OUTSIDE RECORDS SUMMARY | 2024-12-06 15:38 | XMS_ITS | Encounter Summary ---
Author Organization [employer] Address [address] [place] [address] 7t [place] [address] Care Team Providers Care Multiple Launch Rocket System Crewmember Name Role Phone Angelique Grace DO Primary Care Provider [phone]- [phone] Castillo Pradhan PharmD Unavailable Unavail able Yu Busby PharmD Unavailable Reason for Visit * Reason Comments Med Refill Encounter Details Date Type Department Care Team (Late st Contact Info) Description 06/02/2022 Refill [facility]INE [address] [place] [address] Yulisa Cedillo MD [address] [place] [address] Primary hypertension Social History Tobacco Use Types [...] on file documented as of this encounter Visit Diagnoses Diagnosis Primary hypertension Unspecified essential hypertension documented in this encounter Care Teams Multiple Launch Rocket System Crewmember Relationship Specialty Start Date End Date Angelique Grace DO [address] [place] [address] PCP - General Family Medicine 03/14/18 Castillo Pradhan, PharmD [address] [place] [address] Pharmacist Internal Medicine 07/22/22 11/02/22 Yu Busby, ChristieD [address] [place] [address] Pharmacist Internal Medicine 11/03/22 documented as of this encounter
--- OUTSIDE RECORDS SUMMARY | 2024-12-06 15:38 | XMS_ITS | Encounter Summary ---
Author Organization [employer] Address [address] [facility] 7t [place] [address] Care Team Providers Care Convict Guard Name Role Phone Angelique Grace DO Primary Care Provider [phone]- [phone] Yu Busby PharmD Unavailable [phone] Reason for Visit * Reason Onset Date Comments Switch to televisit 06/28/2024 Encounter Details Date Type Department Care Team ([facility] st Contact Info) Description 06/28/2024 Telephone [facility] [address] [place] [address] Angelique Grace DO [address] [place] [address] Switch to televisit Social History Tobacco Use [...] today at 1:30 pm with Yu Busby. [phone] documented in this encounter Plan of Treatment Not on file documented as of this encounter Goals Goal Patient Goal Type Associated Problems Recent Progress Patient-Stated? Author Smoking cessation General No Puia, Yu, PharmD Hemoglobin A1c < 7 Result Component 9.1( 2:43 PM EDT) No Dellogono Castillo, PharmD Record your blood sugar as directed Result Component No Puia, Yu, PharmD documented as of this encounter Visit Diagnoses Not on filedocumented in this encounter Additional Health Concerns Assessment Noted Time PHQ-9 Depression Total Score: 0 06/09/19 23 11:27 AM EDT documented as of this encounter Care Teams Convict Guard Relationship Specialty Start Date End Date Angelique Grace DO [address] [place] [address] PCP - General Family Medicine 03/14/18 Yu Busby, PharmD [address] [place] [address] Pharmacist Internal Medicine 11/03/22 documented as of this encounter
--- OUTSIDE RECORDS SUMMARY | 2024-12-06 15:38 | XMS_ITS | Encounter Summary ---
Author Organization [employer] Address [address] [facility] 7t [place] [address] Care Team Providers Care Admin Dir Name Role Phone Angelique Grace DO Primary Care Provider [phone]- [phone] Yu Busby PharmD Unavailable [phone] Reason for Visit * Reason Onset Date Comments Med Refill 01/07/2023 Encounter Details Date Type Department Care Team ([facility] st Contact Info) Description 01/07/2023 Telephone [facility] MEDICINE [address] [place] [address] Angelique Grace DO [address] [place] [address] Med Refill Social History Tobacco Use Types [...] capsule to be sent to [facility] documented in this encounter Plan of [...] documented as of this encounter Care Teams Admin Dir Relationship Specialty Start Date End Date Angelique Grace DO [address] [place] [address] PCP - General Family Medicine 03/14/18 Yu Busby, Radha [address] [place] [address] Pharmacist Internal Medicine 11/03/22 documented as of this encounter
--- OUTSIDE RECORDS SUMMARY | 2024-12-06 15:38 | XMS_ITS | Encounter Summary ---
Author Organization [employer] Address [address] [facility] 7t [place] [address] Care Team Providers Care Independent Freight Agent Name Role Phone Angelique Grace DO Primary Care Provider [phone]- [phone] Yu Busby PharmD Unavailable [phone] Reason for Visit * Reason Onset Date Comments callback requested 01/27/2024 Encounter Details Date Type Department Care Team ([facility] st Contact Info) Description 01/27/2024 Telephone [facility] MEDICINE [address] [place] [address] Angelique Grace DO [address] [place] [address] callback requested Social History Tobacco Use Types [...] has to payout of pocket , Callback [phone] documented in this encounter Plan of Treatment Not on file documented as of this encounter Goals Goal Patient Goal Type Associated Problems Recent Progress Patient-Stated? Author Smoking cessation General No Puia, Yu, PharmD Hemoglobin A1c < 7 Result Component 9.1( 2:43 PM EDT) No Castillo Pradhan, PharmD Record your blood sugar as directed Result Component No Puia, Yu, PharmD documented as of this encounter Visit Diagnoses Not on filedocumented in this encounter Additional Health Concerns Assessment Noted Time PHQ-9 Depression Total Score: 0 06/09/19 23 11:27 AM EDT documented as of this encounter Care Teams Independent Freight Agent Relationship Specialty Start Date End Date Angelique Grace DO [address] [place] [address] PCP - General Family Medicine 03/14/18 PuiaDarrynYu, PharmD [address] [place] [address] Pharmacist Internal Medicine 11/03/22 documented as of this encounter
--- OUTSIDE RECORDS SUMMARY | 2024-12-06 15:38 | XMS_ITS | Encounter Summary ---
Author Organization [employer] Address [address] [place] [address] [address]t [place] [address] Care Team Providers Care Palliative Care Nurse Name Role Phone Angelique Grace DO Primary Care Provider [phone]- [phone] Yu Busby PharmD Unavailable [phone] Reason for Visit * Reason Onset Date Comments Medication Question 12/15/2022 nitroglyceri n (Nitrostat) 0.4 MG SL tablet Encounter Details Date Type Department Care Team (Late st Contact Info) Description 12/15/2022 Telephone [facility] [address] [place] [address] Angelique Grace DO [address] [place], [place] [id number] Medication Question (nitroglycerin (Nitrostat) 0.4 MG SL [...] encounter Miscellaneous Notes * Telephone Encounter - yEal Ryder - 12/15/2022 2:05 PM EDT Referral to Cardiology found 01/2022. Dr. Bruno # [phone] FAX [phone] * Telephone Encounter - Snow Pickard - 12/15/2022 1:51 PM EDT Tc from pt requesting status on last message . Public Safety Dispatcher informed has to contact her cardiology dr [...] any symptoms at this time. Patient speaks slovak. documented in this encounter Plan of Treatment [...] documented as of this encounter Care Teams Palliative Care Nurse Relationship Specialty Start Date End Date Angelique Grace DO [address] [place] [address] PCP - General Family Medicine 03/14/18 PuYu traore, PharmD [address] [place] [address] Pharmacist Internal Medicine 11/03/22 documented as of this encounter
--- OUTSIDE RECORDS SUMMARY | 2024-12-06 15:38 | XMS_ITS | Encounter Summary ---
Author Organization [employer] Address [address] [facility] 7t [place] [address] Care Team Providers Care Cellophane Wrapping Examiner Name Role Phone Angelique Grace DO Primary Care Provider [phone] Yu Busby PharmD Unavailable Encounter Details Date Type Department Care Team (Latest Contact Info) Description 12/04/2024 Travel Social History Tobacco Use Types Packs/Day [...] Progress Patient-Stated? Author Smoking cessation General No PuiaYu, PharmD Hemoglobin A1c < 7 Result Component 9.1( 2:43 PM EDT) No DelCastillo clements, PharmD Record your blood sugar as directed Result Component No Puia Yu, PharmD documented as of this encounter Visit Diagnoses Not on filedocumented in this encounter Additional Health Concerns Assessment Noted Time PHQ-9 Depression Total Score: 0 07/05/19 25 11:39 AM EDT documented as of this encounter Care Teams Cellophane Wrapping Examiner Relationship Specialty Start Date End Date Angelique Grace DO [address] [place] [address] PCP - General Family Medicine 03/14/18 JamesiaCorneliasa, PharmD [address] [place] [address] Pharmacist Internal Medicine 11/03/22 documented as of this encounter
--- OUTSIDE RECORDS SUMMARY | 2024-12-06 15:38 | XMS_ITS | Encounter Summary ---
Author Organization [employer] Address [address] [facility] 7t [place] [address] Care Team Providers Care Commander Internal Affairs Name Role Phone Angelique Grace DO Primary Care Provider [phone]- [phone] Yu Busby PharmD Unavailable [phone] Reason for Visit * Reason Onset Date Comments Referral 08/30/2023 Encounter Details Date Type Department Care Team ([facility] st Contact Info) Description 08/30/2023 Telephone [facility] MEDICINE [address] [place] [address] Angelique Grace DO [address] [place] [address] Referral Social History Tobacco Use Types Packs/Day [...] referral for Cosmetic Eyelid Surgery how ever account under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 documented in [...] documented as of this encounter Care Teams Commander Internal Affairs Relationship Specialty Start Date End Date Angelique Grace DO [address] [place] [address] PCP - General Family Medicine 03/14/18 Yu Busby, Radha [address] [place] [address] Pharmacist Internal Medicine 11/03/22 documented as of this encounter
--- OUTSIDE RECORDS SUMMARY | 2024-12-06 15:38 | XMS_ITS | Clinical Summary ---
Author Organization [employer] Address [address] [facility] [address] [place] [address] Care Team Providers Care Staff Appraiser Name Role Phone Angelique Garce DO Primary Care Provider Yu Busby PharmD Unavailable [phone] Allergies Active Allergy Reactions Criticality Noted [...] at bedtime Active Blood Glucose Monitoring Suppl (FreeStyle Lite) deviceIndications :Type 2 diabetes mellitus without complication, with long-term current use of insulin ([facility]) Inject 1 each under the skin 3 times daily. Use to test blood sugar three times daily, as directed 1 each 024 Active busPIRone (Buspar) 15 MG tablet Take 1 tablet by mouth 2 times daily. Active escitalopram (Lexapro) 20 MG tablet Take 10 mg by mouth in the morning. Active amLODIPine (Norvasc) 5 MG tabletIndications :Primary hypertension TAKE 1 & 1/2 TABLETS BY MOUTH EVERY DAY 135 tablet 3 Active Ketotifen Fumarate 0.035 % solution Administer 1 drop into affected eye(s) if needed in the morning and at bedtime (itching). 10 mL 3 024 Active Procto-Med HC 2.5 % rectal cream apply by topical route 4 times every day to the affected area(s) as needed for Hemorrhoids 28 g 2 024 Active cholecalciferol (Vitamin D-3) 50 MCG (1999 UT) tabletIndications :Vitamin D deficiency TAKE ONE TABLET BY MOUTH EVERY DAY 90 tablet 3 Active Alcohol Swabs padsIndications:T ype 2 diabetes mellitus without complication, with long-term current use of insulin ([facility]) USE DIRECTED FOUR TIMES A DAY FOR BLOOD SUGAR TESTING AND INSULIN INJECTION 200 each 025 Active glucose blood (FREESTYLE LITE) test stripIndications: Type 2 diabetes mellitus without complication, with long-term current use of insulin ([facility]) Test blood sugars three times a day 100 each 025 Active insulin pen needle (B-D ULTRAFINE III SHORT PEN) 31G X 8 mm miscIndications:T ype 2 diabetes mellitus without complication, with long-term current use of insulin ([facility]) Use once daily for insulin injection 100 each 3 025 Active TRUEplus Lancets 33G miscIndications:T ype 2 diabetes mellitus without complication, with long-term current use of insulin ([facility]) Use to test blood sugar 3 time(s) daily 100 each Active rosuvastatin (Crestor) 40 MG tabletIndications :Type 2 diabetes mellitus without complication, with long-term current use of insulin (CMS/HCC),Other hyperlipidemia Take 1 tablet (40 mg) by mouth Once per day. 90 tablet 1 Active dapagliflozin (Farxiga) 10 MGIndications:Typ e 2 diabetes mellitus without complication, with long-term current use of insulin ([facility]) TAKE ONE TABLET BY MOUTH EVERY DAY IN THE MORNING 30 tablet Active diphenhydrAMINE (BENADryl) 25 MG capsuleIndication s:Allergic rhinitis, unspecified seasonality, unspecified trigger Take 1 capsule (25 mg) by mouth if needed at bedtime for allergies. 90 capsule Active ascorbic acid (Vitamin C) 250 MG tablet TAKE 1 TABLET BY MOUTH TWICE A DAY WITH FERROUS SULFATE 180 tablet Active butalbital-acetam inophen-caffeine 50-325-40 MG tablet TAKE ONE TABLET BY MOUTH EVERY 4 HOURS NEEDED. MAX 2 TABLETS PER 24 HOURS 20 tablet Active omeprazole (PriLOSEC) [address] capsule TAKE ONE CAPSULE BY MOUTH TWICE A DAY BEFORE BREAKFAST AND SUPPER 180 capsule Active aspirin (Aspirin Low Dose) 81 MG EC tabletIndications :Type 2 diabetes mellitus without complication, with long-term current use of insulin ([facility]) Take 1 tablet (81 mg) by mouth in the morning. 90 tablet Active Semaglutide,0.25 or 0.5MG/DOS, (Ozempic, 0.25 or 0.5 MG/DOSE,) 2 MG/3ML solution pen-injectorIndic ations:Type 2 diabetes mellitus without complication, with long-term current use of insulin ([facility]) Inject 0.5 mg under the skin 1 (one) time per week. 3 mL Active meloxicam (Mobic) 15 MG tablet TAKE ONE TABLET BY MOUTH EVERY DAY NEEDED FOR MILD TO MODERATE PAIN 30 tablet Active cyanocobalamin (Vitamin B-12) 1000 MCG tablet Take 1 tablet (1,000 mcg) by mouth every other day. 45 tablet 2025 Active Diclofenac Sodium (Arthritis Pain Reliever) 1 % gelIndications:Pa in APPLY 2 GRAMS TOPICALLY TO THE PAINFUL AREAS FOUR TIMES A DAY IF NEEDED FOR PAIN 100 g Active pregabalin (Lyrica) 100 MG capsuleIndication s:Neuropathy TAKE ONE CAPSULE BY MOUTH THREE TIMES A DAY 90 capsule 1 Active insulin glargine (Toujeo SoloStar) 300 UNIT/ML injectionIndicati ons:Type 2 diabetes mellitus without complication, with long-term current use of insulin ([facility]) Inject 66 Units under the skin in the morning. Increase, as directed, up to a max of 82 units per day. 9 mL 5 Active oxyCODONE-acetami nophen (Percocet) 5-325 MG tabletIndications :Chronic sacroiliac pain Take 1 tablet by mouth every 12 (twelve) hours if needed for severe pain for up to 28 days. 56 tablet 025 2024 Active cetirizine (ZyrTEC) 10 MG tablet Take 1 tablet (10 mg) by mouth Once per day. 30 tablet 11 2025 Active ondansetron (Zofran) 4 MG tablet Take 1 tablet (4 mg) by mouth every 8 (eight) hours if needed for nausea or vomiting for up to 7 days. 10 tablet 025 2024 Active baclofen (Lioresal) 10 MG tablet Take one tablet TID PRN 60 tablet 3 Active lidocaine (Lidoderm) 5 % patch Apply 1-2 patches topically Once per day. Remove & discard patch within 12 hours or as directed by . 60 patch 1 2024 Discontinued(M ed list cleanup (will not trigger notification to Pharmacy)) baclofen (Lioresal) 10 MG tablet Take one tablet TID PRN 60 tablet 3 025 2024 Discontinued(R eorder (will not trigger notification to Pharmacy)) cyclobenzaprine (Flexeril) 10 MG tablet Take 1 tablet (10 mg) by mouth if needed in the morning and at bedtime for muscle spasms. 60 tablet 3 025 2024 Discontinued(T herapy completed) insulin glargine (Toujeo SoloStar) 300 UNIT/ML injectionIndicati ons:Type 2 diabetes mellitus without complication, with long-term current use of insulin (CMS/HCC) Inject 62 Units under the skin Once per day. Increase, as directed, up to a max of 76 units per day. 9 mL 5 025 2024 Discontinued(R eorder (will not trigger [...] Active Problems Problem Noted Date Diagnosed Date Hypersomnia 10/24/2024 Assessment & Plan (10/24/2024 5:49 PM EDT): Patient denies snoring, reports she has a partner and he tells her she does not snores at all, I decided to order blood work patient will be contacted with results Other fatigue 10/24/2024 Lower extremity edema 10/24/2024 Assessment & Plan (10/24/2024 5:50 PM EDT): I will order an echocardiogram in light of her history of coronary artery disease and over the extremity edema, I also advised to follow-up with her garde manger Plantar fasciitis, bilateral 10/24/2024 Assessment & Plan (10/24/2024 5:50 PM EDT): Patient will be referred to [facility] Pharyngitis 06/05/2024 Assessment & Plan (06/05/2024 9:57 [...] Diabetes 06/08/2022 06/08/2022 HLD (hyperlipidemia) 06/08/2022 023 Class 2 obesity 04/09/2022 04/21/2022 Hand eczema 03/31/2022 07/10/2023 Encounters Date Type Department Care Team Description 12/04/2024 6:40 PM EDT Office Visit [facility] [address] [place] [phone] Palma Felix FNP Non-cardiac chest pain (Primary Dx) 12/04/2024 Travel 11/29/2024 Telephone [facility] [address] [place] [phone] Angelique Grace DO 11/16/2024 Refill [facility] [address] [place] [address] [phone] Angelique Grace DO Chronic sacroiliac pain (Primary Dx) 11/07/2024 Travel 10/29/2024 Refill [facility] [address] [place] [address] Angelique Grace DO Neuropathy; Type 2 diabetes mellitus without complication, with long-term current use of insulin ([facility]); Other hyperlipidemia 10/25/2024 Orders Only GENERIC EXTERNAL DATA DEPARTMENT Provider, Generic External Data 10/24/2024 5:20 PM EDT Office Visit [facility] [address] [place] [address] Shea Balderas MD Hypersomnia (Primary Dx); Other fatigue; Lower extremity edema; Plantar fasciitis, bilateral 10/24/2024 Travel 10/23/2024 Telephone [facility] [address] [place] [address] Angelique Grace DO Nurse Triage 10/22/2024 1:45 PM EDT Office Visit [facility] [address] [place] [address] Agueda Meyer, OD Type 2 diabetes mellitus without ophthalmic manifestations (CMS/HCC) (Primary Dx); Combined forms of age-related cataract of both eyes; Lattice degeneration of both retinas; Presbyopia 10/22/2024 Travel 09/24/2024 Refill [facility] [address] [place] [address] Angelique Grace DO Pain 09/17/2024 Refill [facility] [address] [place] [address] Angelique Grace DO 09/10/2024 Telephone [facility] [address] [place] [address] Yu Busby, ChristieD from Last 3 Months Immunizations Immunization Administration Dates Next Due Hep A, Adult [...] Never Tobacco Cessation:Counseling Given: Not Answered Comments:Quit 1 year ago Alcohol Use Standard [...] 20 12/04/2024 6:13 PM EDT Oxygen Saturation 98% 10/24/2024 4:59 PM EDT Inhaled Oxygen Concentration - - Weight 78.9 kg (174 lb) 12/04/2024 6:13 PM EDT Height 154.9 cm (5' 1 ) 12/04/2024 6:13 PM EDT Body Mass Index 32.88 12/04/2024 6:13 PM EDT Plan of Treatment Health Maintenance Due Date Last Done Comments CT Colonography 1970 Colonoscopy 1970 Colorectal Cancer Screening 1970 FIT DNA/Cologuard 1970 FIT 1970 FOBT 1970 Sigmoidoscopy 1970 Diabetes: Foot Exam 1980 Influenza Vaccine (#1) 2024 4, 02/09/2023, 01/12/2022, Additional history exists Diabetes: Hemoglobin A1C 02/07/2025 025, 07/04/2024, 04/17/2024, Additional history exists Mammogram 03/21/2025 03/21/2024, 05/2023, 03/10/2022, Additional history exists Alcohol/Substance Use Screening 07/04/2025 07/04/2024 Depression Screening 07/04/2025 07/04/2024, 07/05/19 Disability Screening 07/04/2025 07/04/2024 SDOH Screening 07/04/2025 07/04/2024 Diabetes: Urine Protein Screening 08/30/2025 08/30/2024, 01/06/2024, 09/29/2022, Additional history exists Lipid Panel 08/30/2025 08/30/2024, 06/13, 05/08/2024, Additional history exists Eye Exam 10/22/2025 10/22/2024, 10/12, 10/22/2024, Additional history exists Tobacco Screening 10/24/2025 10/24/2024 Cervical Cancer Screening 04/02/2027 HPV/Cotest 04/02/2027 04/02/2022 [...] 06/08/2022, Additional history exists HIV Screening Completed 07/04/2024, 12/13, 09/29/2022, Additional history exists Hepatitis C Screening Completed 07/04/2024 , 01/06/2024, 09/29/2022, Additional history exists HIB Vaccines Aged Out [...] 12/04/2024 7:38 PM EDT Non-cardiac chest pain POCT GLYCATED HEMOGLOBIN, TOTAL Routine 11/07/2024 2:43 PM EDT Type 2 diabetes mellitus without complication, with long-term current use of insulin ([facility]) HEMATOXYLIN AND EOSIN STAIN Routine 10/25/2024 11:28 AM EDT GLUCOSE, WHOLE BLOOD Routine 10/25/2024 10:08 AM EDT LIPID PANEL, STANDARD Routine 08/30/2024 2:34 PM EDT ALBUMIN, RANDOM URINE W/CREATININE Routine 08/30/2024 2:30 PM EDT Chronic bilateral low back pain, unspecified whether sciatica present Dyspareunia in female HEPATITIS C AB W/REFL TO HCV RNA, QN, PCR Routine 07/04/2024 12:07 PM EDT Chronic bilateral low back pain, unspecified whether sciatica present Dyspareunia in female HIV 1/2 ANTIGEN/ANTIBODY, FOURTH GENERATION W/RFL Routine 07/04/2024 12:07 PM EDT Chronic bilateral low back pain, unspecified whether sciatica present Dyspareunia in female BI MAMMOGRAM SCREENING TOMOSYNTHESIS BILATERAL Routine 03/21/2024 2:15 PM EST HM PAP/HPV Routine 04/02/2022 from Last 3 Months or Most Recently Relevant to Health Maintenance Results * ECG 12 lead (12/04/2024 7:38 PM EDT) Narrative Palma Felix FNP - 12/04/2024 7:38 PM EDT Sinus rhythm P/AR: 108/144 ms QRS: 112 ms QT/Qtc: 404/460 ms P/QRS/T axis: 33/16/24 deg Heart rate: 78 bpm Palma MILLER ECG ORDERABLES Final Result * (ABNORMAL) POCT HGB A1C (11/07/2024 2:43 PM EDT) Hemoglobin A1C 9.1(A) 4.0 - 5.7 % Blood 11/07/2024 2:43 PM EDT Angelique Grace DO POINT OF CARE TEST ENTER/ARETHA T ORDERABLES Final Result * Hematoxylin and Eosin Stain (10/25/2024 11:28 AM EDT) 10/25/2024 11:2 8 AM EDT 10/25/2024 11:49 AM EDT Narrative [facility] - 10/26/2024 5:26 PM EDT ----- ------- Name: Maria C Lewis Age/Sex: 54/F : 1970 Unit#: [id number] Attend Dr: Nirmala Noriega MD Re10/25/24 Status: [facility] Location: [facility] Disch: ----- ------- SPEC : [id number] RECD: 10/25/24 STATUS: [facility] NUM: [id number] JOVANA: 10/25/[address] [facility] [address]: Nirmala Noriega MD ENTERED: 10/25/24 SP TYPE: Surgical OTHR DR: Angelique Grace DO ORDERED: HE Stain/9, Gross Micro L4/3, IHC, Special st. 2/3, H. pylori, AB/PAS/3 Diagnosis A. Stomach, random, biopsy: Gastric antral and body mucosa with mild chronic inactive gastritis; negative for Helicobacter pylori, intestinal metaplasia and dysplasia. B. Esophagus, lower, biopsy: Squamous mucosa within normal limits; negative for inflammation (including intraepithelial eosinophils, fungal organisms, intestinal metaplasia and dysplasia. C. Esophagus, middle, biopsy: Squamous mucosa within normal limits; negative for inflammation (including intraepithelial eosinophils, fungal organisms, intestinal metaplasia and dysplasia. 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 Microscopic sections examined. No metaplastic changes are seen, supported by AB/PAS stains (A-C); no Helicobacter organisms are seen, supported by H. pylori immunostain (A). Material Received A. Random gastric bx's B. Lower esophagus bx's C. Middle esophagus bx's Gross Description Received in three parts. Part A: Received in formalin labeled random gastric bx's are three nickerson rectangular tissue fragments each measuring 0.35 cm, submitted in toto in a cassette labeled A. Part B: Received in formalin labeled lower esophagus bx's are four mcnair-white irregular and rectangular tissue fragments ranging from 0.25-0.35 cm, submitted in toto in a cassette labeled B. Part C: Received in formalin labeled middle esophagus bx's are four mcnair-pink irregular and rectangular tissue fragments ranging from 0.2-0.35 cm, submitted in toto in a cassette labeled C. CONTINUED ON NEXT PAGE ----- ------- Name: Ángel LewisMaria C Age/Sex: 54/F : 1970 Unit#: [id number] Attend Dr: Nirmala Noriega MD Re10/25/24 Status: [facility] Location: [facility] Disch: ----- ------- SPEC : [id number] RECD: 10/25/24 STATUS: [facility] NUM: [id number] JOVANA: 10/25/24-[address] [facility] [address]: Nirmala Noriega MD ENTERED: 10/25/24-115 SP TYPE: Surgical OTHR DR: Angelique Grace DO ORDERED: HE Stain/9, Gross Micro L4/3, IHC, Special st. 2/3, H. pylori, AB/PAS/3 Gross Description (Continued) CEDS Special stains ordered and performed: AB/PAS on A-C; immunostain for H pylori on A. IHC S/NG Disclaimer NOTE: Unless otherwise stated, all tissue is formalin-fixed and paraffin-embedded. Some or all of the immunohistochemical tests reported herein may have been developed and their performance characteristics determined by [facility]. They have not been cleared or approved by the U.S. Food and Drug Administration (FDA). However, the FDA has determined that such clearance or approval is not necessary. This laboratory is certified under the Clinical Laboratory Improvement Amendments of 1988 (CLIA) as qualified to perform high complexity clinical laboratory testing. Copies To: Angelique Grace DO [facility] [address] [place], [place] [id number] Nirmala Noriega MD [facility] [address] [place] [address] [phone] [email or web address] ----- ------- Signed (signature on file) Reanna Gray MD 10/26/24 1726 ----- ------- END OF REPORT us Generic External Data Provider LAB BLOOD ORDERAB LES Final Result [facility] [address] [place] [address] [phone] * (ABNORMAL) Glucose, Whole Blood (10/25/2024 10:08 AM EDT) Glucose, Whole Blood 200(H) 60 - 115 mg/dL [facility] Comment:METER #: [id number] 10/25/2024 10:0 8 AM EDT 10/25/2024 10:11 AM EDT us Generic External Data Provider LAB BLOOD ORDERAB LES Final Result Performing Organization Address [facility]/ZIP Co de Phone Number [facility] [address] [place] [address] [phone] * Lipid Panel, Standard (08/30/2024 2:34 PM EDT) Triglycerides 148 <150 mg/dL [facility] Comment:Desirable Triglyceri de: less than 150 mg/dLBorderline High Triglyceride 150-199 mg/dLHigh Triglyceride: 200-499 mg/dLVery High Triglyceride: greater than or equal to 5OO mg/dL Cholesterol 140 <200 mg/dL [facility] Comment:Desirable Cholestero l: less than 200 mg/dLBorderline High Cholesterol: 200-239 mg/dLHigh Cholesterol: greater than 239 mg/dL LDL Cholesterol Calculated 56 <100 mg/dL [facility] Comment:Desirable LDL: less than 100 mg/dLNear Optimal/Above Optimal LDL: 110- 129 mg/dLBorderline High LDL: 130-159 mg/dLHigh LDL: 160-189 mg/dLVery High LDL: greater than or equal to 190 mg/dL HDL Cholesterol 55 >40 mg/dL [facility] Comment:Desirable HDL: great er than 40 mg/dL Note: This HDL assay may give artificially low results in patients with liver disease. 08/30/2024 2:34 PM EDT 08/30/2024 2:34 PM EDT us Angelique Grace DO LAB BLOOD ORDERABLES Final R esult Performing Organization Address City/[facility]/ZIP Co de Phone Number [facility] [address] [place] [address] [phone] * Albumin, Random Urine W/Creatinine (08/30/2024 2:30 PM EDT) Creatinine, Urine 166.93 mg/dL [facility] Microalbumin Urine 46.0 mg/L [facility] Microalbum Creatinine Ratio Ur 27.5 <30 ug/mg cr [facility] Comment:Albumin/Creatinine R atio Reference Ranges: Normal: < 30 ug/mg creatinine Microalbuminuria: 30 - 300 ug/mg creatinineClinical Albuminuria: > 300 ug/mg creatinine Urine (Urine, Random) 08/30/2024 2:30 PM EDT 08/30/2024 3:13 PM EDT Angelique Ellisolga LAB URINE ORDERABLES Final R esult Performing Organization Address City/[facility]/ZIP Co de Phone Number [facility] [address] [place] [phone] * Hepatitis C Antibody with Reflex to HCV, RNA, Quantitative, Real-Time PCR (07/04/2024 12:07 PM EDT) Hepatitis C Antibody Nonreactive Nonreactive [facility] Comment:Antibodies to HCV no t detected; does not exclude early acuteHCV infection. Blood Venous blood specimen / Unknown 07/04/2024 12:07 PM EDT 07/04/2024 1:08 PM EDT Angelique Ellisolga LAB BLOOD ORDERABLES Final R esult Performing Organization Address City/[facility]/ZIP Co de Phone Number [facility] [address] [place] [phone] * HIV-1/2 Antigen and Antibodies, Fourth Generation, with Reflexes (07/04/2024 12:07 PM EDT) HIV AB/AG Nonreactive Nonreactive [facility] Comment:HIV-1 p24 Ag and/or HIV-1/HIV-2 Ab not detected.A test result that is nonreactive does not exclude thepossibility of exposure to or infection with HIV-1 and/orHIV-2. Nonreactive results in this assay for individualswith prior exposure to HIV-1 and/or HIV-2 may be due toantigen and antibody levels that are below the limit ofdetection of this assay.[employer] HIV Ag/Ab Combo assay result andsupplemental assay results should be interpreted inconjunction with the patient's clinical presentation,history and other laboratory results. If the results areinconsistent with clinical evidence, additional testing issuggested to confirm the result. Blood Venous blood specimen / Unknown 07/04/2024 12:07 PM EDT 07/04/2024 1:08 PM EDT us Angelique Grace DO LAB BLOOD ORDERABLES Final R esult [facility] [address] [place] [address] [phone] * BI Mammogram Screening Tomosynthesis Bilateral (03/21/2024 2:15 PM EST) Anatomical Region Laterality Modality Breast Bilateral Mammography 03/21/2024 2:15 PM EST Narrative 03/28/2024 9:29 AM EST [address] [place] [address] Mammography Report Signed Patient: Maria C Lewis MR#: [id number] : 1970 Acct:[id number] Age/Sex: 53 / F ADM Date: 03/21/24 Loc: HO.MAMMO Attending Dr: Angelique Grace DO Ordering Physician: Angelique Grace DO Results: 1N egative Date of Service: 03/21/24 Follow Up: 1 Year From [facility] Mammogram Procedure(s): MM tomosynthesis screening BI Accession Number(s): [id number] cc: Angelique Grace DO EXAMINATION: MM SCREENING [...] by Velia Sorensen DO in OV> 03/28/24 09 DD/ 1415 TD/TT: 03/21/24 1442 Technician Automated Equipment: Procedure Note Donotuseinterpreter, Image - 03/28/2024 [facility] [address] [place] [address] Mammography Report Signed Patient: Maria C LewisMR#: [id number] : 1970Acct:[id number] Age/Sex: 53 / FADM Date: 03/21/24 Loc: HO.MAMMO Attending Dr: Angelique Grace DO Ordering Physician: Angelique Graceults: 1N egative Date of Service: 03/21/24Follow Up: 1 Year From Orig ina Mammogram Procedure(s): MM tomosynthesis screening BI Accession Number(s): [id number] cc: Angelique Grace DO EXAMINATION: MM SCREENING [...] 03/28/24 0926 DD/ 1415 TD/TT: 03/21/24 1442 Technician Automated Equipment: Angelique Grace DO IMG BI PROCEDURES Final Resu lt * Pap Smear (04/02/2022) Pap Negative for intraephithelial lesion or malignancy Negative for intraephithelial lesion or malignancy, Other HPV Undetected Undetected, Indeterminate, Quantitative, Not Detected Historical Provider HEALTH MAINTENANCE Final Result from Last 3 Months or Most Recently Relevant to Health Maintenance Insurance [address] [address] C3 Care Teams Staff Appraiser Relationship Specialty Start Date End Date Angelique Grace DO [address] [place] [address] PCP - General Family Medicine 03/14/18 Yu Busby PharmD [address] [place] [address] Pharmacist Internal Medicine 11/03/22
--- OUTSIDE RECORDS SUMMARY | 2024-12-06 15:38 | XMS_ITS | Encounter Summary ---
Author Organization [employer] Address [address] [facility] [address] [place] [address] Care Team Providers Care Er Medical Technician Name Role Phone Angelique Grace DO Primary Care Provider [phone] Yu Busby PharmD Unavailable [phone] Encounter Details Date Type Department Care Team (Late st Contact Info) Description 11/29/[address] [facility] [address] [place] [address] Angelique Grace DO [address] [place] [address] Social History Tobacco Use Types Packs/Day Years [...] documented as of this encounter Care Teams Er Medical Technician Relationship Specialty Start Date End Date Angelique Grace DO [address] [place] [address] PCP - General Family Medicine 03/14/18 PuiaCorneliasa, PharmD [address] [place] [address] Pharmacist Internal Medicine 11/03/22 documented as of this encounter
--- OUTSIDE RECORDS SUMMARY | 2024-12-06 15:38 | XMS_ITS | Encounter Summary ---
Author Organization [employer] Address 75 [facility] 7t [place] [address] Care Team Providers Care Machine Shop Worker Name Role Phone Angelique Grace DO Primary Care Provider +1- [phone] Yu Busby PharmD Unavailable [phone] Reason for Visit * Reason Onset Date Comments Med Refill 06/26/2024 Encounter Details Date Type Department Care Team (Late st Contact Info) Description 06/26/2024 Telephone [facility] MEDICINE [address] [place] [address] Angelique Grace DO [address] [place], [place] [phone] Med Refill Social History Tobacco Use Types [...] tablet To be sent to: [facility] [address] [place] [address] documented in this encounter Plan of Treatment [...] as of this encounter Care Teams Machine Shop Worker Relationship Specialty Start Date End Date Angelique Grace DO 230 [place] [address] PCP - General Family Medicine 03/14/18 Yu uBsby PharmD 230 [place] [address] Pharmacist Internal Medicine 11/03/22 documented as of this encounter
--- OUTSIDE RECORDS SUMMARY | 2024-12-06 15:38 | XMS_ITS | Encounter Summary ---
Author Organization [employer] Address 75 [facility] 7t [place] [address] Care Team Providers Care Plant Technician Name Role Phone Angelique Grace DO Primary Care Provider +1- [phone] Yu Busby PharmD Unavailable [phone] Reason for Visit * Reason Comments Med Refill Encounter Details Date Type Department Care Team ([facility] st Contact Info) Description 11/03/2023 Refill [facility] MEDICINE 230 [place] [address] Angelique Grace DO 230 [place] [address] Social History Tobacco Use Types Packs/Day Years [...] as of this encounter Care Teams Plant Technician Relationship Specialty Start Date End Date Angelique Grace DO 230 [place] [address] PCP - General Family Medicine 03/14/18 Yu Busby PharmD 230 [place] [address] Pharmacist Internal Medicine 11/03/22 documented as of this encounter
--- OUTSIDE RECORDS SUMMARY | 2024-12-06 15:38 | XMS_ITS | Encounter Summary ---
Author Organization [employer] Address 75 [facility] 7t [place] [address] Care Team Providers Care Advertising Director Name Role Phone Angelique Grace DO Primary Care Provider +1 [phone] Yu Busby PharmD Unavailable [phone] Reason for Visit * Reason Comments Med Refill Encounter Details Date Type Department Care Team ([facility] st Contact Info) Description 01/05/2023 Refill [facility] MEDICINE 230 [place] [address] Shea Balderas MD 230 [place] [address] Social History Tobacco Use Types Packs/Day Years [...] documented as of this encounter Care Teams Advertising Director Relationship Specialty Start Date End Date Angelique Grace DO 230 [place] [address] PCP - General Family Medicine 03/14/18 Yu Busby PharmD 230 [place] [address] Pharmacist Internal Medicine 11/03/22 documented as of this encounter
--- OUTSIDE RECORDS SUMMARY | 2024-12-06 15:38 | XMS_ITS | Encounter Summary ---
Author Organization [employer] Address 75 [facility] 7t [place] [address] Care Team Providers Care Health Promotion Officer Name Role Phone Angelique Grace DO Primary Care Provider +1- [phone] Yu Busby PharmD Unavailable [phone] Reason for Visit * Reason Onset Date Comments Med Refill 03/01/2024 Encounter Details Date Type Department Care Team ([facility] st Contact Info) Description 03/01/2024 Telephone [facility] MEDICINE 230 [place] [address] Angelique Grace DO 230 [place] [address] Med Refill Social History Tobacco Use Types [...] be sent to: [facility] [address] documented in this encounter Plan of [...] documented as of this encounter Care Teams Health Promotion Officer Relationship Specialty Start Date End Date Angelique Grace DO 230 [place] [address] PCP - General Family Medicine 03/14/18 Yu Busby PharmD 230 [place] [address] Pharmacist Internal Medicine 11/03/22 documented as of this encounter
--- OUTSIDE RECORDS SUMMARY | 2024-12-06 15:38 | XMS_ITS | Encounter Summary ---
Author Organization [employer] Address 75 [facility] 7t [place] [address] Care Team Providers Care Grass Farmer Name Role Phone Angelique Grace DO Primary Care Provider +1- [phone] Yu Busby PharmD Unavailable [phone] Reason for Visit * Reason Onset Date Comments Nurse Triage 01/12/2024 Encounter Details Date Type Department Care Team (Late st Contact Info) Description 01/12/2024 Telephone [facility] MEDICINE 230 [place] [address] Angelique Grace DO 230 [place] [address] Nurse Triage Social History Tobacco Use Types [...] 01/12/2024 11:28 AM EDT Called pt. Via [employer]. Pt. States that she is having numbness in both hands when she sleeps at night and when she uses her tablet. Pt. States she called to make an appt. With [facility] [address] [place] [address] -Fax number [phone] or [phone] DX. Arthralgias but, they told her that [...] Hemoglobin A1c < 7 Result Component 9.1( 5 2:43 PM EDT) No Castillo Pradhan PharmD Record your blood sugar as directed Result Component No Yu Busby PharmD documented as of this encounter Visit Diagnoses Not on filedocumented in this encounter Additional Health Concerns Assessment Noted Time PHQ-9 Depression Total Score: 0 06/09/19 11:27 AM EDT documented as of this encounter Care Teams Grass Farmer Relationship Specialty Start Date End Date Angelique Grace DO 230 [place] [address] PCP - General Family Medicine 03/14/18 Yu Busby PharmD 230 [place] [address] Pharmacist Internal Medicine 11/03/22 documented as of this encounter
--- OUTSIDE RECORDS SUMMARY | 2024-12-06 15:38 | XMS_ITS | Encounter Summary ---
Author Organization [employer] Address 75 [facility] 7t [place] [address] Care Team Providers Care Assistant Controller Name Role Phone Angelique Grace DO Primary Care Provider +1- [phone] Yu Busby PharmD Unavailable [phone] Reason for Visit * Reason Onset Date Comments Medication Question 05/14/2024 Encounter Details Date Type Department Care Team ([facility] st Contact Info) Description 05/14/2024 Telephone [facility] MEDICINE 230 [place] [address] Angelique Grace DO 230 [place] [address] Medication Question Social History Tobacco Use Types [...] to Discuss her medication. Contact pt at [phone] documented in this encounter Plan of Treatment Not on file documented as of this encounter Goals Goal Patient Goal Type Associated Problems Recent Progress Patient-Stated? Author Smoking cessation General No PuYu traore, PharmD Hemoglobin A1c < 7 Result Component 9.1( 2:43 PM EDT) No DellogCastillo toledo, PharmD Record your blood sugar as directed Result Component No Puia Yu, PharmD documented as of this encounter Visit Diagnoses Not on filedocumented in this encounter Additional Health Concerns Assessment Noted Time PHQ-9 Depression Total Score: 0 06/09/19 23 11:27 AM EDT documented as of this encounter Care Teams Assistant Controller Relationship Specialty Start Date End Date Angelique Grace DO 230 [place] [address] PCP - General Family Medicine 03/14/18 PuiaDarrynYu, PharmD 230 [place] [address] Pharmacist Internal Medicine 11/03/22 documented as of this encounter
--- OUTSIDE RECORDS SUMMARY | 2024-12-06 15:38 | XMS_ITS | Encounter Summary ---
Author Organization [employer] Address 75 [facility] 7t [place] [address] Care Team Providers Care Design Inserter Name Role Phone Angelique Grace DO Primary Care Provider +1- [phone] uY Busby PharmD Unavailable [phone] Encounter Details Date Type Department Care Team (Late st Contact Info) Description 08/03/2024 Telephone [facility] MEDICINE 230 [place] [address] Angelique Grace DO 230 [place] [address] Social History Tobacco Use Types Packs/Day Years [...] * Telephone Encounter - Kerri Burt - 08/03/2024 10:59 AM EDT Tc from pt requesting to speak to Yu in pharmacy regarding dosage increase for insulin that wasdiscussed in the past. Contact pt at [phone] documented in this encounter Plan of Treatment [...] documented as of this encounter Care Teams Design Inserter Relationship Specialty Start Date End Date Angelique Grace DO 230 [place] [address] PCP - General Family Medicine 03/14/18 PuiaDarrynYu, PharmD [address] [place] [address] Pharmacist Internal Medicine 11/03/22 documented as of this encounter
--- OUTSIDE RECORDS SUMMARY | 2024-12-06 15:38 | XMS_ITS | Encounter Summary ---
Author Organization [employer] Address 75 [facility] 7t [place] [address] Care Team Providers Care Bellows Assembler Name Role Phone Angelique Grace DO Primary Care Provider +1- [phone] Yu Busby PharmD Unavailable [phone] Reason for Visit * Reason Onset Date Comments Nurse Triage 09/08/2023 Encounter Details Date Type Department Care Team ([facility] st Contact Info) Description 09/08/2023 Telephone [facility] MEDICINE 230 [place] [address] Angelique Grace DO 230 [place] [address] Nurse Triage Social History Tobacco Use Types [...] Miscellaneous Notes * Telephone Encounter - Ioana RamonANNALISA - 09/08/2023 3:58 PM EDT Triage call [...] accepted this outcome Please contact pt at [phone] (day care assistant) documented in this encounter Plan of Treatment [...] documented as of this encounter Care Teams Bellows Assembler Relationship Specialty Start Date End Date Angelique Grace DO 230 [place], [place] [phone] PCP - General Family Medicine 03/14/18 Puia, Yu, PharmD 230 [place], [place] [phone] Pharmacist Internal Medicine 11/03/22 documented as of this encounter
--- OUTSIDE RECORDS SUMMARY | 2024-12-06 15:38 | XMS_ITS | Encounter Summary ---
Author Organization [employer] Address 75 [facility] 7t [place] [address] Care Team Providers Care Freight Engineer Name Role Phone Angelique Grace DO Primary Care Provider +1- [phone] Yu Busby PharmD Unavailable [phone] Reason for Visit * Reason Onset Date Comments Nurse Triage 01/10/2023 Encounter Details Date Type Department Care Team ([facility] st Contact Info) Description 01/10/2023 Telephone [facility] MEDICINE 230 [place] [address] Angelique Grace DO 230 [place] [address] Nurse Triage Social History Tobacco Use Types [...] 01/10/2023 4:01 PM EDT Triage call with [employer]le [place] [employer] ID [id number] Pt reports burning with urination which started yesterday. Urine has a foul odor, low back pain andbil leg pain. Pt is advised to come to [facility] to be seen and Pt agrees with [...] accepted this outcome Please contact pt at [phone] (Bulgarian) documented in this encounter Plan of Treatment [...] documented as of this encounter Care Teams Freight Engineer Relationship Specialty Start Date End Date Angelique Grace DO 230 [place] [address] PCP - General Family Medicine 03/14/18 Yu Busby PharmD 230 [place] [address] Pharmacist Internal Medicine 11/03/22 documented as of this encounter
--- OUTSIDE RECORDS SUMMARY | 2024-12-06 15:39 | XMS_ITS | Encounter Summary ---
Author Organization [employer] Address 75 [facility] 7t [place] [address] Care Team Providers Care Color Consultant Name Role Phone Angelique Grace DO Primary Care Provider +1- [phone] Yu Busby PharmD Unavailable [phone] Reason for Visit * Reason Onset Date Comments Referral 07/19/2023 Encounter Details Date Type Department Care Team ([facility] st Contact Info) Description 07/19/2023 Telephone [facility] MEDICINE [address] [place] [address] Angelique Grace DO 230 [place] [address] Referral Social History Tobacco Use Types Packs/Day [...] for plastic surgery. Please contact pt at [phone]. documented in this encounter Plan of Treatment [...] documented as of this encounter Care Teams Color Consultant Relationship Specialty Start Date End Date Angelique Grace DO 230 [place] [address] PCP - General Family Medicine 03/14/18 Yu Busby, PharmD 230 [place] [address] Pharmacist Internal Medicine 11/03/22 documented as of this encounter
--- OUTSIDE RECORDS SUMMARY | 2024-12-06 15:39 | XMS_ITS | Encounter Summary ---
Author Organization [employer] Address 75 [facility] 7t [place] [address] Care Team Providers Care Design Tech Name Role Phone Angelique Grace DO Primary Care Provider [phone]- [phone] Yu Busby PharmD Unavailable [phone] Reason for Visit * Reason Comments Med Refill Encounter Details Date Type Department Care Team ([facility] st Contact Info) Description 06/01/2023 Refill [facility] MEDICINE 230 [place] [address] Yulisa Cedillo MD [address] [place], [place] [phone] Primary hypertension Social History Tobacco Use Types [...] as of this encounter Care Teams Design Tech Relationship Specialty Start Date End Date Angelique Grace DO 230 [place] [address] PCP - General Family Medicine 03/14/18 Yu Bubsy, PharmD 230 [place] [address] Pharmacist Internal Medicine 11/03/22 documented as of this encounter
--- OUTSIDE RECORDS SUMMARY | 2024-12-06 15:39 | XMS_ITS | Encounter Summary ---
Author Organization [employer] Address 75 [facility] 7t [place] [address] Care Team Providers Care Outside Barrel Lathe Operator Name Role Phone Angelique Grace DO Primary Care Provider +1- [phone] Yu Busby PharmD Unavailable [phone] Encounter Details Date Type Department Care Team (Late st Contact Info) Description 08/10/2023 Telephone [facility] MEDICINE 230 [place] [address] Angelique Grace DO 230 [place] [address] Social History Tobacco Use Types Packs/Day Years [...] documented as of this encounter Care Teams Outside Barrel Lathe Operator Relationship Specialty Start Date End Date Angelique Grace DO 230 [place] [address] PCP - General Family Medicine 03/14/18 Yu Busby, PharmD 230 [place] [address] Pharmacist Internal Medicine 11/03/22 documented as of this encounter
--- OUTSIDE RECORDS SUMMARY | 2024-12-06 15:39 | XMS_ITS | Encounter Summary ---
Author Organization [employer] Address [address] [facility] 7t [place] [address] Care Team Providers Care Lawyer Probate Name Role Phone Angelique Grace DO Primary Care Provider DelaCstillo clements PharmD Unavailable Unavail able Yu Busby PharmD Unavailable Reason for Visit * Reason Onset Date Comments Call requesting 05/26/2022 Encounter Details Date Type Department Care Team ([facility] st Contact Info) Description 05/26/[address] [facility] MEDICINE 230 [place] [address] Angelique Grace DO 230 [place] [address] Call requesting Social History Tobacco Use Types [...] Master IM be used so pt. Can pelt grader her appt? * Telephone Encounter - Rosio Diaz - 05/26/2022 11:05 AM EDT Tc from pt requesting a call from the nurses pt claims that in order to get an appt at [facility]([phone]), nurse has to call make appt because facility is requiring some information in order to schedule appt. Please contact pt at [phone] documented in this encounter Plan of Treatment Not on file documented as of this encounter Visit Diagnoses Not on filedocumented in this encounter Care Teams Lawyer Probate Relationship Specialty Start Date End Date Angelique Grace DO 230 [place] [address] PCP - General Family Medicine 03/14/18 Castillo Pradhan, PharmD [address] [place] [address] Pharmacist Internal Medicine 07/22/22 11/02/22 Yu Busby, ChristieD [address] [place] [address] Pharmacist Internal Medicine 11/03/22 documented as of this encounter
--- OUTSIDE RECORDS SUMMARY | 2024-12-06 15:39 | XMS_ITS | Encounter Summary ---
Author Organization [employer] Address 75 [facility] 7t [place] [address] Care Team Providers Care Admission Specialist Name Role Phone Angelique Grace DO Primary Care Provider [phone] DelCastillo clements PharmD Unavailable Unavail able Yu Busby PharmD Unavailable [phone] Reason for Visit * Reason Comments Med Refill Encounter Details Date Type Department Care Team (Late st Contact Info) Description 05/21/2022 Refill [facility] MEDICINE [address] [place] [address] Brent Garvin FNP Degeneration of lumbar intervertebral [...] disc documented in this encounter Care Teams Admission Specialist Relationship Specialty Start Date End Date Angelique Grace DO [address] [place] [address] PCP - General Family Medicine 03/14/18 Castillo Pradhan, ChristieD [address] [place] [address] Pharmacist Internal Medicine 07/22/22 11/02/22 Yu Busby PharmD [address] [place] [address] Pharmacist Internal Medicine 11/03/22 documented as of this encounter
--- OUTSIDE RECORDS SUMMARY | 2024-12-06 15:39 | XMS_ITS | Encounter Summary ---
Author Organization [employer] Address 75 [facility] 7t [place] [address] Care Team Providers Care Burling And Joining Supervisor Name Role Phone Angelique Grace DO Primary Care Provider [phone] Yu Busby PharmD Unavailable [phone] Reason for Visit * Reason Onset Date Comments Accomodation Letter 08/23/2023 Encounter Details Date Type Department Care Team ([facility] st Contact Info) Description 08/23/2023 Telephone [facility] MEDICINE 230 [place] [address] Angelique Grace DO [address] [place] [address] Accomodation Letter Social History Tobacco Use Types [...] Pt was transferred from Him in which telegraphic typewriter mechanic contact HIM for clarification. They informed telegraphic typewriter mechanic pt was advised to leave message with providers team. If any questions please contact pt at [phone]. documented in this encounter Plan of Treatment [...] documented as of this encounter Care Teams Burling And Joining Supervisor Relationship Specialty Start Date End Date Angelique Grace DO [address] [place] [address] PCP - General Family Medicine 03/14/18 Yu Busby, PharmD [address] [place] [address] Pharmacist Internal Medicine 11/03/22 documented as of this encounter
--- OUTSIDE RECORDS SUMMARY | 2024-12-06 15:39 | XMS_ITS | Encounter Summary ---
Author Organization [employer] Address [address] [place] [address] 7 [place] [address] Care Team Providers Care Guitar Repairer Name Role Phone Angelique Grace DO Primary Care Provider Castillo Pradhan PharmD Unavailable Unavail able Yu Busby PharmD Unavailable Encounter Details Date Type Department Care Team (Late st Contact Info) Description 02/23/2022 Orders Only [facility] 230 [place] [address] Angelique Grace DO 230 [place] [address] Social History Tobacco Use Types Packs/Day Years [...] on filedocumented in this encounter Care Teams Guitar Repairer Relationship Specialty Start Date End Date Angelique Grace DO 230 [place], [place] [phone] PCP - General Family Medicine 03/14/18 Castillo Pradhan, PharmD [address] [place] [address] Pharmacist Internal Medicine 07/22/22 11/02/22 Yu Busby, PharmD [address] [place] [address] Pharmacist Internal Medicine 11/03/22 documented as of this encounter
--- OUTSIDE RECORDS SUMMARY | 2024-12-06 15:39 | XMS_ITS | Encounter Summary ---
Author Organization [employer] Address [address] [place] [address] 7t [place] [address] Care Team Providers Care Insurance Loss Control Surveyor Name Role Phone Angelique Grace DO Primary Care Provider [phone] Castillo Pradhan PharmD Unavailable Unavail able Yu Busby PharmD Unavailable Encounter Details Date Type Department Care Team (Late st Contact Info) Description 03/02/2022 Orders Only [facility] [address] [place] [address] Angelique Soler LPN Social History Tobacco Use [...] on filedocumented in this encounter Care Teams Insurance Loss Control Surveyor Relationship Specialty Start Date End Date Angelique Grace DO [address] [place] [address] PCP - General Family Medicine 03/14/18 Castillo Pradhan, PharmD [address] [place] [address] Pharmacist Internal Medicine 07/22/22 11/02/22 Yu Busby, PharmD [address] [place] [address] Pharmacist Internal Medicine 11/03/22 documented as of this encounter
--- OUTSIDE RECORDS SUMMARY | 2024-12-06 15:39 | XMS_ITS | Encounter Summary ---
Author Organization [employer] Address 75 [facility] 7t [place] [address] Care Team Providers Care Plsql Developer Name Role Phone Angelique Grace DO Primary Care Provider [phone]- [phone] Yu Busby PharmD Unavailable [phone] Reason for Visit * Reason Comments Med Refill Encounter Details Date Type Department Care Team ([facility] st Contact Info) Description 07/09/2023 Refill [facility] MEDICINE [address] [place] [address] Angelique Grace DO 230 [place] [address] Type 2 diabetes mellitus without complication, with long-term current use of insulin ([facility]) Social History Tobacco Use Types Packs/Day Years [...] complication, with long-term current use of insulin ([facility]) documented in this encounter Additional Health Concerns Assessment Noted Time PHQ-9 Depression Total Score: 0 06/09/19 23 11:27 AM EDT documented as of this encounter Care Teams Plsql Developer Relationship Specialty Start Date End Date Angelique Grace DO 230 [place] [address] PCP - General Family Medicine 03/14/18 Yu Busby PharmD 230 [place] [address] Pharmacist Internal Medicine 11/03/22 documented as of this encounter
--- OUTSIDE RECORDS SUMMARY | 2024-12-06 15:40 | XMS_ITS | Encounter Summary ---
Author Organization [employer] Address 75 [facility] 7t [place] [address] Care Team Providers Care Podiatrist Name Role Phone CalebAngelique espinoza Primary Care Provider +1- [phone] Yu Busby PharmD Unavailable [phone] Encounter Details Date Type Department Care Team (Late st Contact Info) Description 05/12/2023 Orders Only [facility] [address] [place] [address] ProviderKhadar MD Social History Tobacco Use Types [...] documented as of this encounter Care Teams Podiatrist Relationship Specialty Start Date End Date Angelique Grace DO 230 [place] [address] PCP - General Family Medicine 03/14/18 Yu Busby, PharmD 230 [place] [address] Pharmacist Internal Medicine 11/03/22 documented as of this encounter
--- OUTSIDE RECORDS SUMMARY | 2024-12-06 15:40 | XMS_ITS | Encounter Summary ---
Author Organization [email or web address] Address [address] [facility] [address] [place] [address] Care Team Providers Care Velvet Steamer Name Role Phone Angelique Grace DO Primary Care Provider [phone] Yu Busby PharmD Unavailable [phone] Reason for Visit * Reason Onset Date Comments Durable Medical Equipment 03/03/2023 Encounter Details Date Type Department Care Team ([facility] st Contact Info) Description 03/03/2023 Telephone [facility] [address] [place] [address] Angelique Grace DO [address] [place] [address] Durable Medical Equipment Social History Tobacco Use [...] [employer] Please contact pt @ [phone] documented in this encounter Plan of Treatment Not on file documented as of this encounter Goals Goal Patient Goal Type Associated Problems Recent Progress Patient-Stated? Author Smoking cessation General No Puia, Yu, PharmD Hemoglobin A1c < 7 Result Component 9.1( 5 2:43 PM EDT) No Dellogono, Castillo, PharmD Record your blood sugar as directed Result Component No Puia, Yu, PharmD documented as of this encounter Visit Diagnoses Not on filedocumented in this encounter Additional Health Concerns Assessment Noted Time PHQ-9 Depression Total Score: 0 06/09/19 23 11:27 AM EDT documented as of this encounter Care Teams Velvet Steamer Relationship Specialty Start Date End Date Angelique Grace DO [address] [place] [id number] PCP - General Family Medicine 03/14/18 Yu Bsuby, ChristieD [address] [place] [id number] Pharmacist Internal Medicine 11/03/22 documented as of this encounter
--- OUTSIDE RECORDS SUMMARY | 2024-12-06 15:40 | XMS_ITS | Encounter Summary ---
Author Organization [employer] Address [address] [facility] [address] [place] [address] Care Team Providers Care Back Tufter Name Role Phone Angelique Grace DO Primary Care Provider [phone] Yu Busby PharmD Unavailable [phone] Encounter Details Date Type Department Care Team (Late st Contact Info) Description 2023 Abstract [facility]INE [address] [place] [address] Angelique Grace DO [address] [place] [address] Social History Tobacco Use Types Packs/Day Years [...] 9.1( 2:43 PM EDT) No Castillo Pradhan PharmYusfe Record your blood sugar as directed Result Component No Yu Busby PharmD documented as of this encounter Visit Diagnoses Not on filedocumented in this encounter Additional Health Concerns Assessment Noted Time PHQ-9 Depression Total Score: 0 06/09/19 11:27 AM EDT documented as of this encounter Care Teams Back Tufter Relationship Specialty Start Date End Date Angelique Grace DO [address] [place] [address] PCP - General Family Medicine 03/14/18 Yu Busby, PharmD [address] [place] [address] Pharmacist Internal Medicine 11/03/22 documented as of this encounter
--- OUTSIDE RECORDS SUMMARY | 2024-12-06 15:40 | XMS_ITS | Encounter Summary ---
Author Organization [employer] Address [address] [facility] [address] [place] [address] Care Team Providers Care Copra Sampler Name Role Phone Angelique Grace DO Primary Care Provider [phone] Yu Busby PharmD Unavailable [phone] Reason for Visit * Reason Onset Date Comments Call Back Request 03/23/2023 Encounter Details Date Type Department Care Team ([facility] st Contact Info) Description 03/23/2023 Telephone [facility] [address] [place] [address] Angelique Grace DO [address] [place] [address] Call Back Request Social History Tobacco Use [...] a call back in regards pregabalin PA, senior mortgage underwriter advise pt about the status on [...] documented as of this encounter Care Teams Copra Sampler Relationship Specialty Start Date End Date Angelique Grace DO [address] [place] [address] PCP - General Family Medicine 03/14/18 Puia, Yu, PharmD [address] [place] [address] Pharmacist Internal Medicine 11/03/22 documented as of this encounter
== END ==
LOC: HO.CARD 11:07
PROVIDERS: PCP Family Medicine; Visit Provider Internal Medicine
DX: R60.0 Localized edema (principal)
CPT/HCPCS: 93306; Q9957

== ENCOUNTER → 2024-12-06 11:11 | Outpatient (BNV) | payer MEDICAID, SELFPAY | PROVIDERS: PCP Family Medicine; Visit Provider Internal Medicine Cardiovascular Disease | DX: I51.89 Other ill-defined heart diseases (principal); R60.0 Localized edema | CPT/HCPCS: 93306 ==

== ENCOUNTER 2024-12-28 09:00 | Outpatient (AMB) | payer MEDICAID, SELFPAY ==
[2024-12-28 09:03] VITALS: BP 120/64; PULSE 74; O2SAT 97; BMI 33.0
--- NOTE | 2024-12-28 09:03 | A.OFFVIS_ITS ---
Vital Signs 12/28/24 09:03 Height 5 ft 1 in Weight 174 lb 13.225 oz BMI 33.0 BP 120/64 Blood Pressure Location Rt brachial Position Sitting Pulse 74 Pulse Source Pulse Oximeter Pulse Oximetry (%) 97 Oxygen Delivery Method Room Air Intake Visit Reasons: Thyrotoxicosis Intake Note: Patient presents for Thyrotoxicosis. Branch Account Executive Required: Yes Branch Account Executive Language: Upper Sorbian Information Interpreted: non-clinical & clinical Accompanied by: Self / Same As Patient Allergies enalapril (ENALAPRIL) Allergy (Severe, Verified 12/28/24 09:07) hives/throat swelling lisinopril (LISINOPRIL) Allergy (Severe, Verified 12/28/24 09:07) hives/throat swelling oxycodone Allergy (Intermediate, Verified 12/28/24 09:07) Vomiting hydrochlorothiazide (HYDROCHLOROTHIAZIDE) Allergy (Unknown, Verified 12/28/24 09:07) Unknown metoprolol (METOPROLOL) Allergy (Unknown, Verified 12/28/24 09:07) Unknown metronidazole (METRONIDAZOLE) Allergy (Unknown, Verified 12/28/24 09:07) Unknown Medication List - Last Reconciled 12/28/24 by Aneta Leblanc MD acetaminophen ER 650 mg PO BID PRN amlodipine 7.5 mg PO DAILY aspirin (Adult Aspirin Regimen) 81 mg PO DAILY baclofen 10 mg PO TID PRN blood sugar diagnostic (FreeStyle Lite Strips) As directed buspirone 15 mg PO BID cetirizine 10 mg PO DAILY cholecalciferol (vitamin D3) 50 mcg PO DAILY dapagliflozin propanediol (Farxiga) 10 mg PO QAM diphenhydramine HCl (Benadryl) 25 mg PO TID PRN gabapentin 300 mg PO BEDTIME insulin glargine U-300 conc (Toujeo SoloStar U-300 Insulin) 50 units subcut CRISTAL Y omega 0-tnl-byg-fish oil 300 mg (120 mg- 180mg)-1,000 mg 1 cap PO BID omeprazole 20 mg PO DAILY pravastatin 40 mg PO BEDTIME pregabalin 100 mg PO TID rosuvastatin 40 mg PO DAILY semaglutide (Ozempic) 2 mg subcut QWEEK sennosides (senna) 8.6 mg PO BEDTIME HPI Comments Details: 54 years old female here today for follow up of subclinical hyperthyroidism. HPI from prior visit Patient was complaining of hair loss which prompted thyroid work up , labs from 01/06/24 showed low TSH of 0.16 and normal free T4 of 0.89. 01/23/24 Tsh 0.22 , free T4 again normal 0.85 and total T3 89. Patient currently denies diarrhea, palpitation, anxiety, mood changes, low energy, changes in appearance of eyes or vision changes, tremors, increased diaphoresis or dry skin. ? Reports hair loss , heat tolerance. Has constipation. Losing weight on GLP 1 agonist has lost 30 lbs. Patient denies any difficulty swallowing, pain on swallowing or voice changes or difficulty breathing. Patient denies any history of childhood neck radiation. Denies having ever used lithium, amiodarone. She is on biotin supplemetns twice a week. No preceding viral illness No exposure to contrast agents no history of osteoporosis , has a history of tailbone fracture from fall no other fractures HAs history of CAD , on aspirin Patient denies any family history of thyroid cancer or thyroid disease. Labs 03/27/2024 showed TSH still low at 0.23, with normal free T4 and total T3. TSI, TPO in TR AB antibodies negative. Interval history Nuclear medicine thyroid uptake and scan 05/24/2024 showed normal symmetric activity in both lobes ups up for a mild increased appearance in the lower pole of the left gland. Over the past few months her TSH was mostly around 0.2, however most recent labs from 09/03/2024 shows normal TSH of 0.46 with total T3 normal at 91. No free T4 done on those labs. At this point given her labs have been normal recently, with undetectable antibody levels, normal thyroid uptake and scan, there is no need for further investigation. However we will see her back once more in 6 months with a repeat thyroid blood work. Physical exam General: sitting comfortably in no acute distress HEENT: normocephalic/atraumatic, moist oral mucosa Neck: supple, symmetrical, no thyromegaly , no dorsocervical or supraclavicular fat pads Cardiac: normal heart sounds Pulm: normal breath sounds B/L, no added breath sounds Abd: not distended, no tenderness Extremities: no edema, no signs of myxedema, no tremors Neuro: AAO x3, Speech: normal, no facial droop, moving all 4 extremities Laboratory Tests 02/08/18 10/03/18 12/21/18 11:20 10:15 14:20 Free T4 1.05 0.87 Total T3 114 TSH Free T3 09/29/22 02/15/23 01/06/24 11:39 10:16 14:02 Free T4 0.82 0.89 Total T3 112 TSH 0.22 L 0.37 0.16 L Free T3 01/23/24 15:28 Free T4 0.85 Total T3 89 TSH 0.22 L Free T3 3.1 Laboratory Tests 02/08/18 10/03/18 12/21/18 11:20 10:15 14:20 WBC Neut % (Auto) Absolute Neuts (auto) AST ALT Alkaline Phosphatase Free T4 1.05 0.87 Total T3 114 Thyroid Stim Immunoglob <89 TSH Thyroglobulin Antibody <1 Thyroid Peroxidase Ab 10 H TSH Receptor Antibody <6.0 TSH Receptor Ab 09/29/22 02/15/23 01/06/24 11:39 10:16 14:02 WBC Neut % (Auto) Absolute Neuts (auto) AST ALT Alkaline Phosphatase Free T4 0.82 0.89 Total T3 112 Thyroid Stim Immunoglob TSH 0.22 L 0.37 0.16 L Thyroglobulin Antibody Thyroid Peroxidase Ab TSH Receptor Antibody TSH Receptor Ab 01/23/24 03/25/24 03/27/24 15:28 17:29 13:40 WBC 6.5 Neut % (Auto) 57.4 Absolute Neuts (auto) 3.7 AST 39 H 37 H ALT 51 H 47 H Alkaline Phosphatase 68 67 Free T4 0.85 0.90 Total T3 89 118 Thyroid Stim Immunoglob <89 TSH 0.22 L 0.23 L Thyroglobulin Antibody Thyroid Peroxidase Ab 2 TSH Receptor Antibody TSH Receptor Ab <1.00 Laboratory Tests 05/08/24 07/04/24 08/30/24 10:18 12:07 14:34 TSH 0.27 L 0.23 L 0.24 L Free T4 0.85 0.80 0.77 Total T3 92 104 09/03/24 12:39 TSH 0.46 Free T4 Total T3 91 [facility] Medical History (Updated 10/25/24 @ 11:39 by Nirmala Noriega MD) Fatty liver Subclinical hyperthyroidism Chest discomfort CAD (coronary artery disease) Right hand pain Numbness and tingling in left hand Trigger finger, right Hyperlipidemia Diabetes GERD (gastroesophageal reflux disease) Depression Anxiety HTN (hypertension) Surgical History (Updated 12/19/24 @ 10:52 by BRIAN Shearer) History of esophagogastroduodenoscopy (EGD) Hx of cardiac catheterization History of hand surgery Family History Maternal Aunt Dialysis patient Hypertension Diabetes Mother Hypertension Diabetes Father Diabetes Hypertension Social History Alcohol intake: never Patient Tobacco Use Status: Never used Tobacco Cigarettes Per Day: 2 Current occupational status: unemployed Current occupation: right handed Physical Exam Vital Signs: Last Vital Signs Pulse 74 12/28/24 09:03 BP 120/64 12/28/24 09:03 Pulse Ox 97 12/28/24 09:03 Oxygen Delivery Method Room Air 12/28/24 09:03 BMI result Body Mass Index 33.0 Assessment & Plan Assessment & Plan (1) Subclinical hyperthyroidism: Code(s): E05.90 - Thyrotoxicosis, unspecified without thyrotoxic crisis or storm Category: Medical Plan: 53-year-old female here today for follow up of subclinical hyperthyroidism. Patient was complaining of hair loss which prompted thyroid work up , labs from 01/06/24 showed low TSH of 0.16 and normal free T4 of 0.89. 01/23/24 Tsh 0.22 , free T4 again normal 0.85 and total T3 89. Her exam is unremarkable and she does not have any significant symptoms. Repeat Labs 03/27/2024 showed TSH still low at 0.23, with normal free T4 and total T3. TSI, TPO in TR AB antibodies negative. Hence she does not have Graves disease. Nuclear medicine thyroid uptake and scan 05/24/2024 showed normal symmetric activity in both lobes ups up for a mild increased appearance in the lower pole of the left gland. Over the past few months her TSH was mostly around 0.2, however most recent labs from 09/03/2024 shows normal TSH of 0.46 with total T3 normal at 91. No free T4 done on those labs. At this point given her labs have been normal recently, with undetectable antibody levels, normal thyroid uptake and scan, there is no need for further investigation. However we will see her back once more in 6 months with a repeat thyroid blood work. Plan: -ordered TSH, free T4, total T3 to be done prior to next follow up -follow up in 6 months Plan See above Orders: Orders Thyroid Stimulating Hormone 6 Months E0 - Thyrotoxicosis, unspecified without thyrotoxic crisis or storm Free T4 (Free Thyroxine) 6 Months E0 - Thyrotoxicosis, unspecified without thyrotoxic crisis or storm Triiodothyronine T3 Total 6 Months E0 - Thyrotoxicosis, unspecified without thyrotoxic crisis or storm Patient Instructions: do blood work 1-2 weeks prior to your next follow up in 6 months, please make sure that blood work is done before my appointment otherwise reschedule follow up if you are not able to do the blood work on time. If you are taking any supplements that have biotin and them, please stop those 4-5 days before your blood work Realice un an?taylor de taty 1 o 2 semanas antes de camarillo pr?xima tunde de seguimiento dentro de 6 meses. Aseg?rese de realizarlo antes de mi tunde; de lo contrario, reprograme la tunde si no puede realizarlo a tiempo. Si est? tomando alg?n suplemento que contenga biotina, susp?ndalo 4 o 5 d?as antes de camarillo an?lisis de taty. Coding Level of Care Code Est Pt Level 3 (51971) Diagnoses Subclinical hyperthyroidism
--- OUTSIDE RECORDS SUMMARY | 2024-12-28 09:42 | XMS_ITS | Clinical Summary ---
Author Organization [employer] Address [address] [facility] 7t [place] [address] Care Team Providers Care Sofa Cover Inspector Name Role Phone Angelique Grace DO Primary Care Provider [phone] Yu Busby PharmD Unavailable Allergies Active Allergy [...] complication, with long-term current use of insulin (HCC) Inject 1 each under the skin 3 times daily. Use to test blood sugar three times daily, as directed 1 each 024 Active busPIRone (Buspar) 15 MG tablet Take 1 tablet by mouth 2 times daily. 024 Active escitalopram (Lexapro) 20 MG tablet Take 10 mg by mouth in the morning. 024 Active amLODIPine (Norvasc) 5 MG tabletIndications :Primary hypertension TAKE 1 & 1/2 TABLETS BY MOUTH EVERY DAY 135 tablet 3 024 Active Procto-Med HC 2.5 % rectal cream apply by topical route 4 times every day to the affected area(s) as needed for Hemorrhoids 28 g 2 024 Active cholecalciferol (Vitamin D-3) 50 MCG (1999) tabletIndications :Vitamin D deficiency TAKE ONE TABLET BY MOUTH EVERY DAY 90 tablet 3 025 Active Alcohol Swabs padsIndications:T ype 2 diabetes mellitus without complication, with long-term current use of insulin ([facility]) USE DIRECTED FOUR TIMES A DAY FOR BLOOD SUGAR TESTING AND INSULIN INJECTION 200 each 025 Active glucose blood (FREESTYLE LITE) test stripIndications: Type 2 diabetes mellitus without complication, with long-term current use of insulin ([facility]) Test blood sugars three times a day 100 each 025 Active insulin pen needle (B-D ULTRAFINE III SHORT PEN) 31G X 8 mm miscIndications:T ype 2 diabetes mellitus without complication, with long-term current use of insulin ([facility]) Use once daily for insulin injection 100 each 3 025 Active TRUEplus Lancets 33G miscIndications:T ype 2 diabetes mellitus without complication, with long-term current use of insulin ([facility]) Use to test blood sugar 3 time(s) daily 100 each 025 Active rosuvastatin (Crestor) 40 MG tabletIndications :Type 2 diabetes mellitus without complication, with long-term current use of insulin ([facility]),Other hyperlipidemia Take 1 tablet (40 mg) by mouth Once per day. 90 tablet 1 025 Active dapagliflozin (Farxiga) 10 MGIndications:Typ e 2 diabetes mellitus without complication, with long-term current use of insulin ([facility]) TAKE ONE TABLET BY MOUTH EVERY DAY IN THE MORNING 30 tablet 11 025 Active diphenhydrAMINE (BENADryl) 25 MG capsuleIndication s:Allergic rhinitis, unspecified seasonality, unspecified trigger Take 1 capsule (25 mg) by mouth if needed at bedtime for allergies. 90 capsule 025 Active ascorbic acid (Vitamin C) 250 MG tablet TAKE 1 TABLET BY MOUTH TWICE A DAY WITH FERROUS SULFATE 180 tablet 025 Active omeprazole (PriLOSEC) [address] capsule TAKE ONE CAPSULE BY MOUTH TWICE A DAY BEFORE BREAKFAST AND SUPPER 180 capsule 025 Active aspirin (Aspirin Low Dose) 81 MG EC tabletIndications :Type 2 diabetes mellitus without complication, with long-term current use of insulin (HCC) Take 1 tablet (81 mg) by mouth in the morning. 90 tablet 025 Active Semaglutide,0.25 or 0.5MG/DOS, (Ozempic, 0.25 or 0.5 MG/DOSE,) 2 MG/3ML solution pen-injectorIndic ations:Type 2 diabetes mellitus without complication, with long-term current use of insulin ([facility]) Inject 0.5 mg under the skin 1 (one) time per week. 3 mL 025 Active meloxicam (Mobic) 15 MG tablet TAKE ONE TABLET BY MOUTH EVERY DAY NEEDED FOR MILD TO MODERATE PAIN 30 tablet 2 025 Active cyanocobalamin (Vitamin B-12) 1000 MCG tablet Take 1 tablet (1,000 mcg) by mouth every other day. 45 tablet 025 2025 Active Diclofenac Sodium (Arthritis Pain Reliever) 1 % gelIndications:Pa in APPLY 2 GRAMS TOPICALLY TO THE PAINFUL AREAS FOUR TIMES A DAY IF NEEDED FOR PAIN 100 g 025 Active pregabalin (Lyrica) 100 MG capsuleIndication s:Neuropathy TAKE ONE CAPSULE BY MOUTH THREE TIMES A DAY 90 capsule 025 Active insulin glargine (Toujeo SoloStar) 300 UNIT/ML injectionIndicati ons:Type 2 diabetes mellitus without complication, with long-term current use of insulin ([facility]) Inject 66 Units under the skin in the morning. Increase, as directed, up to a max of 82 units per day. 9 mL 5 025 Active cetirizine (ZyrTEC) 10 MG tablet Take 1 tablet (10 mg) by mouth Once per day. 30 tablet 11 025 2025 Active baclofen (Lioresal) 10 MG tablet Take one tablet TID PRN 60 tablet 3 Active butalbital-acetam inophen-caffeine 50-325-40 MG tablet TAKE ONE TABLET BY MOUTH EVERY 4 HOURS NEEDED. MAX 2 TABLETS PER 24 HOURS 20 tablet 1 Active Ketotifen Fumarate 0.035 % solution Administer 1 drop into affected eye(s) if needed in the morning and at bedtime (itching). 10 mL 3 Active Ketotifen Fumarate 0.035 % solution Administer 1 drop into affected eye(s) if needed in the morning and at bedtime (itching). 10 mL 3 024 2024 Discontinued(R eorder (will not trigger notification to Pharmacy)) baclofen (Lioresal) 10 MG tablet Take one tablet TID PRN 60 tablet 3 025 2024 Discontinued(R eorder (will not trigger notification to Pharmacy)) cyclobenzaprine (Flexeril) 10 MG tablet Take 1 tablet (10 mg) by mouth if needed in the morning and at bedtime for muscle spasms. 60 tablet 3 2024 Discontinued(T herapy completed) butalbital-acetam inophen-caffeine 50-325-40 MG tablet TAKE ONE TABLET BY MOUTH EVERY 4 HOURS NEEDED. MAX 2 TABLETS PER 24 HOURS 20 tablet 1 025 2024 Discontinued(R eorder (will not trigger notification to Pharmacy)) oxyCODONE-acetami nophen (Percocet) 5-325 MG tabletIndications :Chronic sacroiliac pain Take 1 tablet by mouth every 12 (twelve) hours if needed for severe pain for up to 28 days. 56 tablet 025 2024 ondansetron (Zofran) 4 MG tablet Take 1 tablet (4 mg) by mouth every 8 (eight) hours if needed for nausea or vomiting for up to 7 days. 10 tablet 025 2024 Hospital, Clinic, or Other Facility Administered Medication [...] I also advised to follow-up with her pocket creaser Plantar fascisophy, bilateral 10/24/2024 Assessment & Plan (10/24/2024 5:50 PM EDT): Patient will be referred to inspector glass or mirror Pharyngitis 06/05/2024 Assessment & Plan (06/05/2024 9:57 [...] Encounters Date Type Department Care Team Description 12/21/2024 Telephone [facility] [address] [place] [address] Angelique Grace DO Referral 12/18/2024 1:45 PM EDT Office Visit [facility] [address] [place] [address] Sourav, Viv, OD Presbyopia (Primary Dx) 12/17/2024 Telephone [facility] [address] [place] [address] Angelique Grace DO 12/11/2024 Telephone [facility] [address] [place] [address] Angelique Grace DO Referral 12/11/2024 Refill [facility] [address] [place] [address] Angelique Grace DO 12/04/2024 6:40 PM EDT Office Visit [facility] [address] [place] [address] Palma Felix FNP Non-cardiac chest pain (Primary Dx) 12/04/2024 Travel 11/29/2024 Telephone [facility] [address] [place] [address] Angelique Grace DO 11/16/2024 Refill [facility] [address] [place] [address] Angelique Grace DO Chronic sacroiliac pain (Primary Dx) 11/07/2024 Travel 10/29/2024 Refill [facility] [address] [place] [address] Angelique Grace DO Neuropathy; Type 2 diabetes mellitus without complication, with long-term current use of insulin ([facility]); Other hyperlipidemia 10/25/2024 Orders Only GENERIC EXTERNAL DATA DEPARTMENT Provider, Generic External Data 10/24/2024 5:20 PM EDT Office Visit [facility] [address] [place] [address] Shea Balderas MD Hypersomnia (Primary Dx); Other fatigue; Lower extremity edema; Plantar fasciitis, bilateral 10/24/2024 Travel 10/23/2024 Telephone [facility] [address] [place] [address] Angelique Grace DO Nurse Triage 10/22/2024 1:45 PM EDT Office Visit [facility] [address] [place] [address] Agueda Meyer, DUNIA Type 2 diabetes mellitus without ophthalmic manifestations ([facility]) (Primary Dx); Combined forms of age-related cataract of both eyes; Lattice degeneration of both retinas; Presbyopia 10/22/2024 Travel from Last 3 Months Immunizations Immunization Administration [...] 12/04/2024 6:13 PM EDT Plan of Treatment Upcoming Encounters Date Type Department Care Team (Late st Contact Info) Description 01/31/2025 11:30 AM EST Medication Management [facility] [address] [place] [address] Yu Busby, PharmD [address] [place] [address] Health Maintenance Due Date Last Done Comments CT Colonography 1970 Colonoscopy 1970 Colorectal Cancer Screening 1970 FIT DNA/Cologuard 1970 FIT 1970 FOBT 1970 Sigmoidoscopy 1970 Diabetes: Foot Exam 1980 Influenza Vaccine (#1) 2024 , 02/09/2023, 01/12/2022, Additional history exists Diabetes: Hemoglobin [...] complication, with long-term current use of insulin ([facility]) HEMATOXYLIN AND EOSIN STAIN Routine 10/25/2024 11:28 [...] - 12/04/2024 7:38 PM EDT Sinus rhythm P/OR: 108/144 ms QRS: 112 ms QT/Qtc: 404/460 [...] AM EDT 10/25/2024 11:49 AM EDT Narrative [facility] - 10/26/2024 5:26 PM EDT ----- ------- Name: Maria C Lewis Age/Sex: 54/F : 1970 Unit#: [id number] Attend Dr: Nirmala Noriega MD Re10/25/24 Status: [facility] Location: [facility] Disch: ----- ------- SPEC : [id number] RECD: 10/25/24 STATUS: [facility] NUM: [id number] JOVANA: 10/25/24-[address] [facility] [address]: Nirmala Noriega MD ENTERED: 10/25/24-115 [...] CONTINUED ON NEXT PAGE ----- ------- Name: NealMaria C Tai Age/Sex: 54/F : 1970 Unit#: [id number] Attend Dr: Nirmala Noriega MD Re10/25/24 Status: [facility] Location: [facility] Disch: ----- ------- SPEC : [id number] RECD: 10/25/24 STATUS: [facility] NUM: [id number] JOVANA: 10/25/24-[address] [facility] [address]: Nirmala Noriega MD ENTERED: 10/25/24 SP TYPE: Surgical OTHR DR: Jurcsak,Angelique A DO ORDERED: HE Stain/9, Gross Micro L4/3, [...] developed and their performance characteristics determined by [facility]. They have not been cleared or approved by the U.S. Food and Drug Administration (FDA). However, the FDA has determined that such clearance or approval is not necessary. This laboratory is certified under the Clinical Laboratory Improvement Amendments of 1988 (CLIA) as qualified to perform high complexity clinical laboratory testing. Copies To: [place] [address] Nirmala Noriega MD [facility] [address] [place] [address] [email or web address] ----- ------- Signed (signature on file) Reanna Gary MD 10/26/24 1726 ----- ------- END OF REPORT us Generic External Data Provider LAB BLOOD ORDERAB LES Final Result Performing Organization [facility]/ZIP Co de Phone Number [facility] [address] [place] [address] [phone] * (ABNORMAL) Glucose, Whole Blood (10/25/2024 10:08 AM EDT) Glucose, Whole Blood 200(H) 60 - 115 mg/dL [facility] Comment:METER #: [id number] 10/25/2024 10:0 8 AM EDT 10/25/2024 10:11 AM EDT us Generic External Data Provider LAB BLOOD ORDERAB LES Final Result Performing Organization Address [facility] Co de Phone Number [facility] [address] [place] [phone] * Lipid Panel, Standard (08/30/2024 2:34 PM EDT) Triglycerides 148 <150 mg/dL [facility] Comment:Desirable Triglyceri de: less than 150 mg/dLBorderline High Triglyceride 150-199 mg/dLHigh Triglyceride: 200-499 mg/dLVery High Triglyceride: greater than or equal to 5OO mg/dL Cholesterol 140 <200 mg/dL [facility] Comment:Desirable Cholestero l: less than 200 mg/dLBorderline High Cholesterol: 200-239 mg/dLHigh Cholesterol: greater than 239 mg/dL LDL Cholesterol Calculated 56 <100 mg/dL [facility] Comment:Desirable LDL: less than 100 mg/dLNear Optimal/Above Optimal LDL: 110- 129 mg/dLBorderline High LDL: 130-159 mg/dLHigh LDL: 160-189 mg/dLVery High LDL: greater than or equal to 190 mg/dL HDL Cholesterol 55 >40 mg/dL [facility] Comment:Desirable HDL: great er than 40 mg/dL Note: This HDL assay may give artificially low results in patients with liver disease. 08/30/2024 2:34 PM EDT 08/30/2024 2:34 PM EDT Angelique Sanjay [employer] LAB BLOOD ORDERABLES Final R esult Performing Organization Address City/[facility]/ZIP Co de Phone Number [facility] [address] [place] [phone] * Albumin, Random Urine W/Creatinine (08/30/2024 2:30 PM EDT) Creatinine, Urine 166.93 mg/dL [facility] Microalbumin Urine 46.0 mg/L [facility] Microalbum Creatinine Ratio Ur 27.5 <30 ug/mg cr [facility] Comment:Albumin/Creatinine R atio Reference Ranges: Normal: < 30 ug/mg creatinine Microalbuminuria: 30 - 300 ug/mg creatinineClinical Albuminuria: > 300 ug/mg creatinine Urine (Urine, Random) 08/30/2024 2:30 PM EDT 08/30/2024 3:13 PM EDT us Angelique Sanjay [employer] [facility] URINE ORDERABLES Final R esult Performing Organization Address [facility] Co de Phone Number [facility] [address] [place] [phone] * Hepatitis C Antibody with Reflex to HCV, RNA, Quantitative, Real-Time PCR (07/04/2024 12:07 PM EDT) Hepatitis C Antibody Nonreactive Nonreactive [facility] Comment:Antibodies to HCV no t detected; does not exclude early acuteHCV infection. Blood Venous blood specimen / Unknown 07/04/2024 12:07 PM EDT 07/04/2024 1:08 PM EDT Angelique Grace [employer] LAB BLOOD ORDERABLES Final R esult Performing Organization Address [facility]/ZIP Co de Phone Number [facility] [address] [place] [phone] * HIV-1/2 Antigen and Antibodies, Fourth Generation, with Reflexes (07/04/2024 12:07 PM EDT) HIV AB/AG Nonreactive Nonreactive [facility] Comment:HIV-1 p24 Ag and/or HIV-1/HIV-2 Ab not detected.A test result that is nonreactive does not exclude thepossibility of exposure to or infection with HIV-1 and/orHIV-2. Nonreactive results in this assay for individualswith prior exposure to HIV-1 and/or HIV-2 may be due toantigen and antibody levels that are below the limit ofdetection of this assay.The [employer] HIV Ag/Ab Combo assay result andsupplemental assay results should be interpreted inconjunction with the patient's clinical presentation,history and other laboratory results. If the results areinconsistent with clinical evidence, additional testing issuggested to confirm the result. Blood Venous blood specimen / Unknown 07/04/2024 12:07 PM EDT 07/04/2024 1:08 PM EDT us Angelique Grace DO LAB BLOOD ORDERABLES Final R esult [facility] [address] [place] [address] [phone] * BI Mammogram Screening Tomosynthesis Bilateral (03/21/2024 2:15 PM EST) Anatomical Region Laterality Modality Breast Bilateral Mammography 03/21/2024 2:15 PM EST Narrative 03/28/2024 9:29 AM EST [facility] [address] [place] [address] Mammography Report Signed Patient: Maria C Lewis MR#: [id number] : 1970 Acct:[id number] Age/Sex: 53 / F ADM Date: 03/21/24 Loc: HO.MAMMO Attending Dr: Angelique Grace DO Ordering Physician: Angelique Grace DO Results: 1N egative Date of Service: 03/21/24 Follow Up: 1 Year From Orig inal Mammogram Procedure(s): MM tomosynthesis screening BI Accession Number(s): [id number] cc: Angelique Grace DO EXAMINATION: MM SCREENING [...] 03/28/24 0926 DD/ 1415 TD/TT: 03/21/24 1442 Supervisor Powdered Sugar: Procedure Note Donotuseinterpreter, Image - 03/28/2024 [facility] [address] [place], [place] [address] Mammography Report Signed Patient: Maria C LewisMR#: [id number] : 1970Acct:[id number] Age/Sex: 53 / FADM Date: 03/21/24 Loc: MAMMO Attending Dr: Angelique Grace DO Ordering Physician: Angelique Graceults: 1N egative Date of Service: 03/21/24Follow Up: 1 Year From Orig inal Mammogram Procedure(s): MM tomosynthesis screening BI Accession Number(s): [id number] cc: Angelique Grace DO EXAMINATION: MM SCREENING [...] by: Velia Sorensen DO 03/28/2024 09:26 AM [facility] Dictated By: Velia Sorensen DO Signed By: <Electronically signed by Velia Sorensen DO in OV> 03/28/24 0926 DD/ 1415 TD/TT: 03/21/24 1442 Supervisor Powdered Sugar: Angelique Grace DO IMG BI PROCEDURES Final Resu lt * Hm Pap Smear (04/02/2022) Pap Negative for intraephithelial lesion or malignancy Negative for intraephithelial lesion or malignancy, Other HPV Undetected Undetected, Indeterminate, Quantitative, Not Detected Historical Provider HEALTH MAINTENANCE Final Result from Last 3 Months or Most Recently Relevant to Health Maintenance Insurance [employer] Care Teams Sofa Cover Inspector Relationship Specialty Start Date End Date Angelique Grace DO [address] [place] [address] PCP - General Family Medicine 03/14/18 Yu Busby PharmD [address] [place] [address] Pharmacist Internal Medicine 11/03/22
--- OUTSIDE RECORDS SUMMARY | 2024-12-28 09:42 | XMS_ITS | Encounter Summary ---
Author Organization [employer] Address [address] [facility] 7t [place] [address] Care Team Providers Care Neon Sign Servicer Name Role Phone Angelique Grace DO Primary Care Provider [phone] Yu Busby PharmD Unavailable [phone] Reason for Visit * Reason Onset Date Comments Med Refill 03/01/2024 Encounter Details Date Type Department Care Team ([facility] st Contact Info) Description 03/01/2024 Telephone [facility] [address] [place] [address] Angelique Grace DO [address] [place] [address] Med Refill Social History Tobacco Use Types [...] be sent to: [facility] [address] documented in this encounter Plan of Treatment Upcoming Encounters Date Type Department Care Team (Late st Contact Info) Description 01/31/2025 11:30 AM EST Medication Management [facility] [address] [place] [address] Yu Busby PharmD [address] [place] [address] documented as of this encounter Goals Goal [...] documented as of this encounter Care Teams Neon Sign Servicer Relationship Specialty Start Date End Date Angelique Grace DO [address] [place] [address] PCP - General Family Medicine 03/14/18 Yu Busby PharmD [address] [place] [address] Pharmacist Internal Medicine 11/03/22 documented as of this encounter
--- OUTSIDE RECORDS SUMMARY | 2024-12-28 09:42 | XMS_ITS | Clinical Summary ---
Author Organization [facility] Address [address] [employer] [facility] [address] [place] [phone] Phone Care Team Providers Care Director Fundraising Name Role Phone Angelique Grace Primary Care Provider [phone] Allergies Active Allergy Reactions Criticality Noted Date [...] VACCINE (#1) 2024 COVID-19 VACCINE (1 - 2024-2 6 season) 2024 SCREENING FOR DIABETES 09/15/2026 09/16/2023 LIPID PANEL 07/17/2028 07/18/2023 Adult Td,Tdap Booster 11/20/2032 11/20/2022 , 03/01/2013 RSV VACCINE (1 - 1-dose 75+ series) 2045 HEPATITIS A VACCINES Aged Out No long [...] Devices Not on file Insurance ACO ACO Care Teams Director Fundraising Relationship Specialty Start Date End Date Angelique Grace DO [address] [place] [address] [place] [address] PCP - General Family Medicine 08/02/23 Additional Source Comments The information contained in this document represents components of the legal health record. It is not the complete legal health record.[facility]
--- OUTSIDE RECORDS SUMMARY | 2024-12-28 09:42 | XMS_ITS | Encounter Summary ---
Author Organization [employer] Address [address] [facility] [address]t [place] [address] Care Team Providers Care Hire Car Driver Name Role Phone Angelique Grace DO Primary Care Provider [phone] Yu Busby PharmD Unavailable [phone] Reason for Visit * Reason Onset Date Comments Referral 08/30/2023 Encounter Details Date Type Department Care Team ([facility] st Contact Info) Description 08/30/2023 Telephone [facility] [address] [place] [address] Angelique Grace DO [address] [place] [address] Referral Social History Tobacco Use Types Packs/Day [...] referral for Cosmetic Eyelid Surgery how ever health technical 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 documented in this encounter Plan of Treatment Upcoming Encounters Date Type Department Care Team (Late st Contact Info) Description 01/31/2025 11:30 AM EST Medication Management [facility] [address] [place] [address] Yu Busby PharmD [address] [place] [address] documented as of this encounter Goals Goal Patient Goal Type Associated Problems Recent Progress Patient-Stated? Author Smoking cessation General No Yu Busby PharmD Hemoglobin A1c < 7 Result Component 9.1( 5 2:43 PM EDT) No Castillo Pradhan PharmYusef Record your blood sugar as directed Result Component No Yu Busby PharmD documented as of this encounter Visit Diagnoses Not on filedocumented in this encounter Additional Health Concerns Assessment Noted Time PHQ-9 Depression Total Score: 0 06/09/19 11:27 AM EDT documented as of this encounter Care Teams Hire Car Driver Relationship Specialty Start Date End Date Angelique Grace DO [address] [place] [address] PCP - General Family Medicine 03/14/18 uY Busby PharmD [address] [place] [address] Pharmacist Internal Medicine 11/03/22 documented as of this encounter
--- OUTSIDE RECORDS SUMMARY | 2024-12-28 09:42 | XMS_ITS | Encounter Summary ---
Author Organization [employer] Address [address] [place] [address] 7t [place] [address] Care Team Providers Care Industrial Safety And Health Manager Name Role Phone Angelique Grace DO Primary Care Provider +1- [phone] Yu Busby PharmD Unavailable [phone] Reason for Visit * Reason Onset Date Comments Medication Question 12/15/2022 nitroglyceri n (Nitrostat) 0.4 MG SL tablet Encounter Details Date Type Department Care Team (Late st Contact Info) Description 12/15/2022 Telephone [facility] MEDICINE [address] [place] [address] Angelique Grace DO [address] [place], [place] [phone] Medication Question (nitroglycerin (Nitrostat) 0.4 MG SL [...] to Cardiology found 01/2022. Dr. Bruno # [phone] FAX [phone] * Telephone Encounter - Snow Pickard - 12/15/2022 1:51 PM EDT Tc from pt requesting status on last message . Shop Clerk informed has to contact her cardiology dr whoprescribes medication . * Telephone Encounter - Aleida Celis - 12/15/2022 10:48 AM EDT Tc from patient requesting medication nitroglycerin (Nitrostat) 0.4 MG SL tablet. Patient states she is traveling to [place] due to Mom's passing on 12/09/22. Patient is afraid with crying and emotions of getting chest pain as she has in the past. She's traveling at 3 pm today. Patient denied any symptoms at this time. Patient speaks [place]. documented in this encounter Plan of Treatment Upcoming Encounters Date Type Department Care Team (Late st Contact Info) Description 01/31/2025 11:30 AM EST Medication Management [facility] MEDICINE [address] [place] [address] Yu Busby PharmD [address] [place] [address] documented as of this encounter Goals Goal [...] documented as of this encounter Care Teams Industrial Safety And Health Manager Relationship Specialty Start Date End Date Angelique Grace DO [address] [place] [address] PCP - General Family Medicine 03/14/18 Yu Busby PharmD [address] [place] [address] Pharmacist Internal Medicine 11/03/22 documented as of this encounter
--- OUTSIDE RECORDS SUMMARY | 2024-12-28 09:42 | XMS_ITS | Encounter Summary ---
Author Organization [employer] Address 75 [facility] 7t [place] [address] Care Team Providers Care Blueprint Clerk Name Role Phone Angelique Grace DO Primary Care Provider +1- [phone] Yu Busby PharmD Unavailable [phone] Reason for Visit * Reason Onset Date Comments Med Refill 01/07/2023 Encounter Details Date Type Department Care Team ([facility] st Contact Info) Description 01/07/2023 Telephone [facility] MED[facility]INE 230 [place] [address] Angelique Grace DO 230 [place] [address] Med Refill Social History Tobacco Use Types [...] capsule to be sent to [facility] [address] documented in this encounter Plan of Treatment Upcoming Encounters Date Type Department Care Team (Late st Contact Info) Description 01/31/2025 11:30 AM EST Medication Management [facility] MEDICINE 230 [place] [address] Yu Busby PharmD 230 [place] [address] documented as of this encounter Goals Goal Patient Goal Type Associated Problems Recent Progress Patient-Stated? Author Smoking cessation General No Yu Busby, PharmYusef Hemoglobin A1c < 7 Result Component 9.1( 2:43 PM EDT) No DellogCastillo toledo PharmD Record your blood sugar as directed Result Component No Yu Busby PharmD documented as of this encounter Visit Diagnoses Not on filedocumented in this encounter Additional Health Concerns Assessment Noted Time PHQ-9 Depression Total Score: 0 06/09/19 11:27 AM EDT documented as of this encounter Care Teams Blueprint Clerk Relationship Specialty Start Date End Date Angelique Grace DO 230 [place] [address] PCP - General Family Medicine 03/14/18 Yu Busby PharmD 230 [place] [address] Pharmacist Internal Medicine 11/03/22 documented as of this encounter
--- OUTSIDE RECORDS SUMMARY | 2024-12-28 09:42 | XMS_ITS | Encounter Summary ---
Author Organization [employer] Address 75 [facility] 7t [place] [address] Care Team Providers Care Scoop Machine Operator Name Role Phone Angelique Grace DO Primary Care Provider [phone] DelCastillo clements PharmD Unavailable Unavail able Yu Busby PharmD Unavailable [phone] Reason for Visit * Reason Comments Med Refill Encounter Details Date Type Department Care Team (Late st Contact Info) Description 05/21/2022 Refill [facility] MEDICINE 230 [place] [address] Brent Garvin FNP Degeneration of lumbar intervertebral [...] Description 01/31/2025 11:30 AM EST Medication Management [facility] MEDICINE [address] [place] [address] Yu Busby PharmD 230 [place] [address] documented as of this encounter Visit Diagnoses Diagnosis Degeneration of lumbar intervertebral disc Degeneration of lumbar or lumbosacral intervertebral disc documented in this encounter Care Teams Scoop Machine Operator Relationship Specialty Start Date End Date Angelique Grace DO [address] [place] [address] PCP - General Family Medicine 03/14/18 Castillo Pradhan PharmD [address] [place] [address] Pharmacist Internal Medicine 07/22/22 11/02/22 Yu Busby, ChristieD [address] [place] [address] Pharmacist Internal Medicine 11/03/22 documented as of this encounter
--- OUTSIDE RECORDS SUMMARY | 2024-12-28 09:42 | XMS_ITS | Encounter Summary ---
Author Organization [employer] Address 75 [facility] 7t [place] [address] Care Team Providers Care Medical Claims Assistant Name Role Phone Angelique Grace DO Primary Care Provider DelCastillo clements PharmD Unavailable Unavail able Yu Busby PharmD Unavailable Encounter Details Date Type Department Care Team (Late st Contact Info) Description 03/02/2022 Orders Only [facility] [address] [place] [address] Angelique Soler LPN Social History Tobacco Use [...] Description 01/31/2025 11:30 AM EST Medication Management [facility] MEDICINE 230 [place] [address] Puia, Yu, PharmD [address] [place] [address] documented as of this encounter Visit Diagnoses Not on filedocumented in this encounter Care Teams Medical Claims Assistant Relationship Specialty Start Date End Date Angelique Grace DO [address] [place] [address] PCP - General Family Medicine 03/14/18 Castillo Pradhan, PharmD [address] [place] [address] Pharmacist Internal Medicine 07/22/22 11/02/22 Yu Busby, ChristieD [address] [place] [address] Pharmacist Internal Medicine 11/03/22 documented as of this encounter
--- OUTSIDE RECORDS SUMMARY | 2024-12-28 09:42 | XMS_ITS | Encounter Summary ---
Author Organization [employer] Address 75 [facility] 7t [place] [address] Care Team Providers Care Club Waiter/Waitress Name Role Phone Angelique Grace DO Primary Care Provider +1- [phone] Yu Busby PharmD Unavailable [phone] Reason for Visit * Reason Onset Date Comments Switch to televisit 06/28/2024 Encounter Details Date Type Department Care Team ([facility] st Contact Info) Description 06/28/2024 Telephone [facility] MEDICINE 230 [place] [address] Angelique Grace DO [address] [place] [address] Switch to televisit Social History Tobacco Use [...] today at 1:30 pm with Yu Busby. [phone] documented in this encounter Plan of Treatment Upcoming Encounters Date Type Department Care Team (Late st Contact Info) Description 01/31/2025 11:30 AM EST Medication Management [facility] MEDICINE [address] [place] [address] Yu Busby, PharmD [address] [place] [address] documented as of this encounter Goals Goal [...] documented as of this encounter Care Teams Club Waiter/Waitress Relationship Specialty Start Date End Date Angelique Grace DO [address] [place] [address] PCP - General Family Medicine 03/14/18 Yu Busby PharmD [address] [place] [address] Pharmacist Internal Medicine 11/03/22 documented as of this encounter
--- OUTSIDE RECORDS SUMMARY | 2024-12-28 09:42 | XMS_ITS | Encounter Summary ---
Author Organization [employer] Address 75 [facility] 7t [place] [address] Care Team Providers Care Car Wiper Name Role Phone Angelique Grace DO Primary Care Provider [phone] Yu Busby PharmD Unavailable [phone] Reason for Visit * Reason Comments Med Refill Encounter Details Date Type Department Care Team ([facility] st Contact Info) Description 01/05/2023 Refill [facility] MED[facility]INE 230 [place] [address] Shea Bladeras MD [address] [place] [address] Social History Tobacco Use Types Packs/Day Years [...] Description 01/31/2025 11:30 AM EST Medication Management [facility] 230 [place], [place] [phone] Yu Busby PharmD 230 [place], [place] [phone] documented as of this encounter Goals Goal [...] documented as of this encounter Care Teams Car Wiper Relationship Specialty Start Date End Date Angelique Grace DO [address] [place] [address] [phone] PCP - General Family Medicine 03/14/18 Yu Busby, PharmD [address] [place] [address] [phone] Pharmacist Internal Medicine 11/03/22 documented as of this encounter
--- OUTSIDE RECORDS SUMMARY | 2024-12-28 09:42 | XMS_ITS | Encounter Summary ---
Author Organization [employer] Address 75 [facility] 7t [place] [address] Care Team Providers Care Football Coach Name Role Phone Angelique Grace DO Primary Care Provider [phone]- [phone] Yu Busby PharmD Unavailable [phone] Encounter Details Date Type Department Care Team (Late st Contact Info) Description 08/10/2023 Telephone [facility] MEDICINE [address] [place] [address] Angelique Grace DO [address] [place] [address] Social History Tobacco Use Types Packs/Day Years [...] Description 01/31/2025 11:30 AM EST Medication Management [facility] MEDICINE [address] [place], [place] [phone] Yu Busby PharmD 230 [place], [place] [phone] documented as of this encounter Goals Goal [...] documented as of this encounter Care Teams Football Coach Relationship Specialty Start Date End Date Angelique Grace DO [address] [place] [address] [id number] PCP - General Family Medicine 03/14/18 Yu Busby PharmD [address] [place] [address] [phone] Pharmacist Internal Medicine 11/03/22 documented as of this encounter
--- OUTSIDE RECORDS SUMMARY | 2024-12-28 09:42 | XMS_ITS | Encounter Summary ---
Author Organization [employer] Address 75 [facility] 7t [place] [address] Care Team Providers Care Supervisor Carbon Electrodes Name Role Phone Angelique Grace DO Primary Care Provider +1- [phone] Yu Bsuby PharmD Unavailable [phone] Reason for Visit * Reason Onset Date Comments Med Refill 06/26/2024 Encounter Details Date Type Department Care Team (Late st Contact Info) Description 06/26/2024 Telephone [facility] MEDICINE 230 [place] [address] Angelique Grace DO 230 [place], [place] [phone] Med Refill Social History Tobacco Use Types [...] tablet To be sent to: [facility] [address] documented in this encounter Plan of Treatment Upcoming Encounters Date Type Department Care Team (Late st Contact Info) Description 01/31/2025 11:30 AM EST Medication Management [facility] MEDICINE 230 [place], [place] [phone] Yu Busby PharmD 230 [place] [address] documented as of this encounter Goals Goal [...] documented as of this encounter Care Teams Supervisor Carbon Electrodes Relationship Specialty Start Date End Date Angelique Grace DO 230 [place] [address] PCP - General Family Medicine 03/14/18 Yu Bubsy PharmD 230 [place] [address] Pharmacist Internal Medicine 11/03/22 documented as of this encounter
--- OUTSIDE RECORDS SUMMARY | 2024-12-28 09:42 | XMS_ITS | Encounter Summary ---
Author Organization [employer] Address 75 [facility] 7t [place] [address] Care Team Providers Care Upholstery Estimator Name Role Phone Angelique Grace DO Primary Care Provider DelCastillo clements PharmD Unavailable Unavail able Yu Busby PharmD Unavailable [phone] Reason for Visit * Reason Onset Date Comments Call requesting 05/26/2022 Encounter Details Date Type Department Care Team ([facility] st Contact Info) Description 05/26/2022 Telephone [facility] MEDICINE 230 [place] [address] Angelique Grace DO 230 [place] [address] Call requesting Social History Tobacco Use Types [...] Master IM be used so pt. Can production scheduler her appt? * Telephone Encounter - Rosio Diaz - 05/26/2022 11:05 AM EDT Tc from pt requesting a call from the nurses pt claims that in order to get an appt at [facility]([phone]), nurse has to call make appt because facility is requiring some information in order to schedule appt. Please contact pt at [phone] documented in this encounter Plan of Treatment Upcoming Encounters Date Type Department Care Team (Late st Contact Info) Description 01/31/2025 11:30 AM EST Medication Management [facility] MEDICINE [address] [place], [place] [phone] Yu Busby PharmD [address] [place], [place] documented as of this encounter Visit Diagnoses Not on filedocumented in this encounter Care Teams Upholstery Estimator Relationship Specialty Start Date End Date Angelique Grace DO [address] [place] [address] PCP - General Family Medicine 03/14/18 Castillo Pradhan PharmD [address] [place] [address] Pharmacist Internal Medicine 07/22/22 11/02/22 Yu Busby, PharmD [address] [place] [address] Pharmacist Internal Medicine 11/03/22 documented as of this encounter
--- OUTSIDE RECORDS SUMMARY | 2024-12-28 09:42 | XMS_ITS | Encounter Summary ---
Author Organization [employer] Address 75 [facility] 7t [place] [address] Care Team Providers Care Spring Coiler Hand Name Role Phone Angelique Grace DO Primary Care Provider +1- [phone] Yu Busby PharmD Unavailable [phone] Reason for Visit * Reason Onset Date Comments Medication Question 05/14/2024 Encounter Details Date Type Department Care Team ([facility] st Contact Info) Description 05/14/2024 Telephone [facility] MEDICINE 230 [place] [address] Angelique Grace DO [address] [place] [address] Medication Question Social History Tobacco Use Types [...] encounter Miscellaneous Notes * Telephone Encounter - Joes Mro DobbinsDavid - 05/14/2024 3:01 PM EST Tc from pt requesting call back to Speak with Yu. Pt states that she Currently has High Blood sugar but pt Denied Triage. She would like to Discuss her medication. Contact pt at [phone] documented in this encounter Plan of Treatment Upcoming Encounters Date Type Department Care Team (Late st Contact Info) Description 01/31/2025 11:30 AM EST Medication Management [facility] MEDICINE [address] [place] [address] Yu Busby, PharmD [address] [place] [address] documented as of this encounter Goals Goal [...] documented as of this encounter Care Teams Spring Coiler Hand Relationship Specialty Start Date End Date Angelique Grace DO [address] [place] [address] PCP - General Family Medicine 03/14/18 Yu Busby PharmD [address] [place] [address] Pharmacist Internal Medicine 11/03/22 documented as of this encounter
--- OUTSIDE RECORDS SUMMARY | 2024-12-28 09:42 | XMS_ITS | Encounter Summary ---
Author Organization [employer] Address 75 [facility] 7t [place] [address] Care Team Providers Care Software Tools Build Engineer Name Role Phone Angelique Grace DO Primary Care Provider +1- [phone] Yu Busby PharmD Unavailable [phone] Reason for Visit * Reason Comments Med Refill Encounter Details Date Type Department Care Team ([facility] st Contact Info) Description 11/03/2023 Refill [facility] MEDICINE 230 [place] [address] Angelique Grace DO 230 [place] [address] Social History Tobacco Use Types Packs/Day Years [...] Description 01/31/2025 11:30 AM EST Medication Management [facility] MEDICINE [address] [place], [place] [phone] Yu Busby PharmD 230 [place], [place] [phone] documented as of this encounter Goals Goal [...] documented as of this encounter Care Teams Software Tools Build Engineer Relationship Specialty Start Date End Date Angelique Grace DO [address] [place] [address] [phone] PCP - General Family Medicine 03/14/18 Yu Busby PharmD [address] [place] [address] [phone] Pharmacist Internal Medicine 11/03/22 documented as of this encounter
--- OUTSIDE RECORDS SUMMARY | 2024-12-28 09:42 | XMS_ITS | Encounter Summary ---
Author Organization [employer] Address [address] [facility] 7t [place] [address] Care Team Providers Care Supervisor Furnace Process Name Role Phone Angelique Grace DO Primary Care Provider +1- [phone] Yu Busby PharmD Unavailable [phone] Reason for Visit * Reason Onset Date Comments Nurse Triage 01/12/2024 Encounter Details Date Type Department Care Team (Late st Contact Info) Description 01/12/2024 Telephone [facility] MEDICINE 230 [place] [address] Angelique Grace DO [address] [place] [address] Nurse Triage Social History Tobacco Use Types [...] 01/12/2024 11:28 AM EDT Called pt. Via [facility]. Pt. States that she is having numbness in both hands when she sleeps at night and when she uses her tablet. Pt. States she called to make an appt. With [facility] [address] [place] [address] -Fax number [phone] or [phone] DX. Arthralgias but, they told her that [...] Description 01/31/2025 11:30 AM EST Medication Management [facility] MEDICINE 230 [place] [address] Yu Busby PharmD [address] [place] [address] documented as of this encounter Goals Goal [...] as of this encounter Care Teams Supervisor Furnace Process Relationship Specialty Start Date End Date Angelique Grace DO [address] [place] [address] [phone] PCP - General Family Medicine 03/14/18 Yu Busby PharmD [address] [place] [address] Pharmacist Internal Medicine 11/03/22 documented as of this encounter
--- OUTSIDE RECORDS SUMMARY | 2024-12-28 09:42 | XMS_ITS | Encounter Summary ---
Author Organization [employer] Address 75 [facility] 7t [place] [address] Care Team Providers Care Barrel Builder Name Role Phone Angelique Grace DO Primary Care Provider +1- [phone] Yu Busby PharmD Unavailable [phone] Encounter Details Date Type Department Care Team (Late st Contact Info) Description 11/29/2024 Telephone [facility] MEDICINE [address] [place] [address] Angelique Grace DO [address] [place] [address] Social History Tobacco Use Types Packs/Day Years [...] Description 01/31/2025 11:30 AM EST Medication Management [facility] MEDICINE [address] [place] [address] Yu Busby, PharmD [address] [place] [address] documented as of this encounter Goals Goal [...] documented as of this encounter Care Teams Barrel Builder Relationship Specialty Start Date End Date Angelique Grace DO [address] [place], [place] [phone] PCP - General Family Medicine 03/14/18 PuiaDarrynYu, PharmD [address] [place] [address] Pharmacist Internal Medicine 11/03/22 documented as of this encounter
--- OUTSIDE RECORDS SUMMARY | 2024-12-28 09:42 | XMS_ITS | Encounter Summary ---
Author Organization [employer] Address 75 [facility] 7t [place] [address] Care Team Providers Care Commercial Print Salesman Name Role Phone Angelique Grace DO Primary Care Provider +1- [phone] Yu Busby PharmD Unavailable [phone] Reason for Visit * Reason Onset Date Comments Referral 12/21/2024 Encounter Details Date Type Department Care Team ([facility] st Contact Info) Description 12/21/2024 Telephone [facility] MEDICINE [address] [place] [address] Angelique Grace DO [address] [place] [address] Referral Social History Tobacco Use Types Packs/Day [...] Telephone Encounter - Daja Browne RN - 12/24/2024 11:22 AM EDT TC placed to Dr. Nicolas office at [facility] [phone] regarding below message. This RN reviewed patient chart which shows that Dr. Fidencio cannon placed an referral to Physical therapy on 12/18/24.FD clarified that the PT referral was placed on 12/18/24. RN verbalized understanding. TC placed to patient [phone] using BLS #ID [id number] regarding below message. This RN informed thepatient that Dr. Fidencio cannon has placed a referral to physical therapy . This RN informed patient that the FD said the referral will be placed at [facility] Pt reported she told Dr. Nicolas office brittny she rather have her referral sent to [facility] which is easier for her. RN encouraged patient to call Dr. Nicolas office for calcification. RN provided Dr. Nicolas office number. Patient verbalized understanding. PT to F/U PRN. * Telephone Encounter - Carols Velazquez - 12/21/2024 4:02 PM EDT Tc from pt requesting a referral for Physical Therapy for [facility]. Please contact pt at [phone] (Tajik Speaker) documented in this encounter Plan of Treatment Upcoming Encounters Date Type Department Care Team (Late st Contact Info) Description 01/31/2025 11:30 AM EST Medication Management [facility] MEDICINE [address] [place] [address] Yu Busby PharmD [address] [place] [address] documented as of this encounter Goals Goal [...] as of this encounter Care Teams Commercial Print Salesman Relationship Specialty Start Date End Date Angelique Grace DO [address] [place] [address] [phone] PCP - General Family Medicine 03/14/18 Yu Busby, PharmD [address] [place] [address] [phone] Pharmacist Internal Medicine 11/03/22 documented as of this encounter
--- OUTSIDE RECORDS SUMMARY | 2024-12-28 09:42 | XMS_ITS | Encounter Summary ---
Author Organization [employer] Address 75 [facility] 7t [place] [address] Care Team Providers Care Multiple Resaw Operator Name Role Phone Angelique Grace DO Primary Care Provider +1- [phone] Yu Busby PharmD Unavailable [phone] Reason for Visit * Reason Onset Date Comments Nurse Triage 09/08/2023 Encounter Details Date Type Department Care Team ([facility] st Contact Info) Description 09/08/2023 Telephone [facility] MEDICINE [address] [place] [address] Angelique Grace DO [address] [place] [address] Nurse Triage Social History Tobacco Use Types [...] accepted this outcome Please contact pt at [phone] (tanker serviceman) documented in this encounter Plan of Treatment Upcoming Encounters Date Type Department Care Team (Late st Contact Info) Description 01/31/2025 11:30 AM EST Medication Management [facility] MEDICINE [address] [place] [address] Yu Busby, PharmD [address] [place] [address] documented as of this encounter Goals Goal Patient Goal Type Associated Problems Recent Progress Patient-Stated? Author Smoking cessation General No Puia, Yu, PharmD Hemoglobin A1c < 7 Result Component 9.1( 5 2:43 PM EDT) No Castillo Pradhan, PharmD Record your blood sugar as directed Result Component No PuiaDarrynYu, PharmD documented as of this encounter Visit Diagnoses Not on filedocumented in this encounter Additional Health Concerns Assessment Noted Time PHQ-9 Depression Total Score: 0 06/09/19 23 11:27 AM EDT documented as of this encounter Care Teams Multiple Resaw Operator Relationship Specialty Start Date End Date Angelique Grace DO [address] [place] [address] PCP - General Family Medicine 03/14/18 Yu Busby, Radha [address] [place] [address] Pharmacist Internal Medicine 11/03/22 documented as of this encounter
--- OUTSIDE RECORDS SUMMARY | 2024-12-28 09:42 | XMS_ITS | Encounter Summary ---
Author Organization [employer] Address 75 [facility] 7t [place] [address] Care Team Providers Care Heel Cementer Machine Name Role Phone Angelique Grace DO Primary Care Provider +1- [phone] Yu Busby PharmD Unavailable [phone] Reason for Visit * Reason Onset Date Comments Medication Question 02/16/2024 Encounter Details Date Type Department Care Team ([facility] st Contact Info) Description 02/16/2024 Telephone [facility] 230 [place] [address] Angelique Grace DO 230 [place] [address] Medication Question Social History Tobacco Use Types [...] Description 01/31/2025 11:30 AM EST Medication Management [facility] [address] [place] [address] Yu Busby PharmD 230 [place] [address] documented as of this encounter Goals Goal [...] documented as of this encounter Care Teams Heel Cementer Machine Relationship Specialty Start Date End Date Angelique Grace DO [address] [place] [id number] PCP - General Family Medicine 03/14/18 Yu Busby PharmD [address] [place] [phone] Pharmacist Internal Medicine 11/03/22 documented as of this encounter
--- OUTSIDE RECORDS SUMMARY | 2024-12-28 09:42 | XMS_ITS | Encounter Summary ---
Author Organization [employer] Address 75 [facility] 7t [place] [address] Care Team Providers Care Assembler Liquid Center Name Role Phone Angelique Grace DO Primary Care Provider +1- [phone] Yu Busby PharmD Unavailable [phone] Reason for Visit * Reason Comments Med Refill Encounter Details Date Type Department Care Team ([facility] st Contact Info) Description 07/09/2023 Refill [facility] MEDICINE 230 [place] [address] Angelique Grace DO 230 [place] [address] Type 2 diabetes mellitus without complication, with long-term current use of insulin ([facility]) Social History Tobacco Use Types [...] Description 01/31/2025 11:30 AM EST Medication Management [facility] MED[facility]INE [address] [place] [address] [phone] Yu Busby PharmD 230 [place] [address] documented as of this encounter Goals Goal [...] with long-term current use of insulin (HCC) documented in this encounter Additional Health Concerns Assessment Noted Time PHQ-9 Depression Total Score: 0 06/09/19 23 11:27 AM EDT documented as of this encounter Care Teams Assembler Liquid Center Relationship Specialty Start Date End Date Angelique Grace DO [address] [place] [address] [phone] PCP - General Family Medicine 03/14/18 Yu Busby, PharmD [address] [place] [address] [phone] Pharmacist Internal Medicine 11/03/22 documented as of this encounter
--- OUTSIDE RECORDS SUMMARY | 2024-12-28 09:42 | XMS_ITS | Encounter Summary ---
Author Organization [employer] Address [address] [place] [address] 7 [place] [address] Care Team Providers Care Testing And Regulating Chief Name Role Phone Angelique Grace DO Primary Care Provider DelCastillo clements PharmD Unavailable Unavail able Yu Busby PharmD Unavailable Encounter Details Date Type Department Care Team (Late st Contact Info) Description 02/23/2022 [facility] Only [facility] 230 [place] [address] Angelique Grace DO 230 [place] [address] Social History Tobacco Use Types Packs/Day Years [...] Description 01/31/2025 11:30 AM EST Medication Management [facility] 230 [place] [address] Yu Busby, PharmD 230 [place] [address] documented as of this encounter Visit Diagnoses Not on filedocumented in this encounter Care Teams Testing And Regulating Chief Relationship Specialty Start Date End Date Angelique Grace DO [address] [place] [phone] PCP - General Family Medicine 03/14/18 Castillo Pradhan, PharmD [address] [place] [phone] Pharmacist Internal Medicine 07/22/22 11/02/22 Yu Busby, ChristieD [address] [place] [phone] Pharmacist Internal Medicine 11/03/22 documented as of this encounter
--- OUTSIDE RECORDS SUMMARY | 2024-12-28 09:42 | XMS_ITS | Encounter Summary ---
Author Organization [employer] Address 75 [facility] 7t [place] [address] Care Team Providers Care End Lathe Operator Name Role Phone Angelique Grace DO Primary Care Provider +1- [phone] uY Busby PharmD Unavailable [phone] Reason for Visit * Reason Onset Date Comments Referral 07/19/2023 Encounter Details Date Type Department Care Team ([facility] st Contact Info) Description 07/19/2023 Telephone [facility] MEDICINE 230 [place] [address] Angelique Grace DO 230 [place] [address] Referral Social History Tobacco Use Types Packs/Day [...] for plastic surgery. Please contact pt at [phone]. documented in this encounter Plan of Treatment Upcoming Encounters Date Type Department Care Team (Late st Contact Info) Description 01/31/2025 11:30 AM EST Medication Management [facility] MED[facility]INE 230 [place] [address] Puia, Yu, PharmD 230 [place] [address] documented as of this encounter Goals Goal Patient Goal Type Associated Problems Recent Progress Patient-Stated? Author Smoking cessation General No Puia, Yu, PharmD Hemoglobin A1c < 7 Result Component 9.1( 5 2:43 PM EDT) No Dellogono Castillo, PharmD Record your blood sugar as directed Result Component No Puia, Yu, PharmD documented as of this encounter Visit Diagnoses Not on filedocumented in this encounter Additional Health Concerns Assessment Noted Time PHQ-9 Depression Total Score: 0 06/09/19 23 11:27 AM EDT documented as of this encounter Care Teams End Lathe Operator Relationship Specialty Start Date End Date Angelique Grace DO 230 [place] [address] PCP - General Family Medicine 03/14/18 Yu Busby, ChristieD 230 [place] [address] Pharmacist Internal Medicine 11/03/22 documented as of this encounter
--- OUTSIDE RECORDS SUMMARY | 2024-12-28 09:42 | XMS_ITS | Encounter Summary ---
Author Organization [employer] Address 75 [facility] 7t [place] [address] Care Team Providers Care Sales Account Specialist Name Role Phone Angelique Grace DO Primary Care Provider +1- [phone] Yu Busby PharmD Unavailable [phone] Encounter Details Date Type Department Care Team (Late st Contact Info) Description 08/03/2024 Telephone [facility] MEDICINE 230 [place] [address] Angelique Grace DO 230 [place] [address] Social History Tobacco Use Types Packs/Day Years [...] wasdiscussed in the past. Contact pt at [phone] documented in this encounter Plan of Treatment Upcoming Encounters Date Type Department Care Team (Late st Contact Info) Description 01/31/2025 11:30 AM EST Medication Management [facility] MEDICINE [address] [place] [address] Yu Busby PharmD 230 [place] [address] documented as of this encounter Goals Goal [...] documented as of this encounter Care Teams Sales Account Specialist Relationship Specialty Start Date End Date Angelique Grace DO 230 [place] [address] PCP - General Family Medicine 03/14/18 Yu Busby PharmD 230 [place] [address] Pharmacist Internal Medicine 11/03/22 documented as of this encounter
--- OUTSIDE RECORDS SUMMARY | 2024-12-28 09:42 | XMS_ITS | Encounter Summary ---
Author Organization [employer] Address 75 [facility] 7t [place] [address] Care Team Providers Care Lead Printer Name Role Phone Angelique Grace DO Primary Care Provider [phone] Yu Busby PharmD Unavailable [phone] Reason for Visit * Reason Onset Date Comments Accomodation Letter 08/23/2023 Encounter Details Date Type Department Care Team ([facility] st Contact Info) Description 08/23/2023 Telephone [facility] 230 [place] [address] Angelique Grace DO 230 [place] [address] Accomodation Letter Social History Tobacco Use Types [...] Pt was transferred from [facility] in which chief writer contact HIM for clarification. They informed chief writer pt was advised to leave message with providers team. If any questions please contact pt at [phone]. documented in this encounter Plan of Treatment Upcoming Encounters Date Type Department Care Team (Late st Contact Info) Description 01/31/2025 11:30 AM EST Medication Management [facility] MED[facility]INE [address] [place] [address] [phone] Yu Busby PharmD [address] [place] [address] [phone] documented as of this encounter Goals Goal [...] documented as of this encounter Care Teams Lead Printer Relationship Specialty Start Date End Date Angelique Grace DO [address] [place] [address] [phone] PCP - General Family Medicine 03/14/18 Yu Busby PharmD [address] [place] [address] [phone] Pharmacist Internal Medicine 11/03/22 documented as of this encounter
--- OUTSIDE RECORDS SUMMARY | 2024-12-28 09:42 | XMS_ITS | Encounter Summary ---
Author Organization [employer] Address [address] [place] [address] 7t [place] [address] Care Team Providers Care Commissioned Security Officer Name Role Phone Angelique Grace DO Primary Care Provider +1- [phone] Dellogtre Castillo PharmD Unavailable Unavail able Yu Busby PharmD Unavailable Reason for Visit * Reason Comments Med Refill Encounter Details Date Type Department Care Team (Late st Contact Info) Description 06/02/2022 Refill [facility] MEDICINE 230 [place] [address] Yulisa Cedillo MD 230 [place] [address] Primary hypertension Social History Tobacco Use Types [...] Description 01/31/2025 11:30 AM EST Medication Management [facility]INE [address] [place] [address] Puia, Yu, PharmD 230 [place] [address] documented as of this encounter Visit Diagnoses Diagnosis Primary hypertension Unspecified essential hypertension documented in this encounter Care Teams Commissioned Security Officer Relationship Specialty Start Date End Date Angelique Grace DO 230 [place] [address] PCP - General Family Medicine 03/14/18 Castillo Pradhan, ChristieD 230 [place] [address] Pharmacist Internal Medicine 07/22/22 11/02/22 Yu Busby PharmD 230 [place] [address] Pharmacist Internal Medicine 11/03/22 documented as of this encounter
--- OUTSIDE RECORDS SUMMARY | 2024-12-28 09:42 | XMS_ITS | Encounter Summary ---
Author Organization [employer] Address 75 [facility] 7t [place] [address] Care Team Providers Care Experimental Assembler Name Role Phone Angelique Grace DO Primary Care Provider +1- [phone] Yu Busby PharmD Unavailable [phone] Reason for Visit * Reason Onset Date Comments Nurse Triage 01/10/2023 Encounter Details Date Type Department Care Team ([facility] st Contact Info) Description 01/10/2023 Telephone [facility]INE 230 [place] [address] Angelique Grace DO 230 [place] [address] Nurse Triage Social History Tobacco Use Types [...] 01/10/2023 4:01 PM EDT Triage call with [employer] Surveillance Monitor ID [id number] Pt reports burning with urination which started yesterday. Urine has a foul odor, low back pain andbil leg pain. Pt is advised to come to [facility] to be seen and Pt [...] accepted this outcome Please contact pt at [phone] (Czech) documented in this encounter Plan of Treatment Upcoming Encounters Date Type Department Care Team ([facility] st Contact Info) Description 01/31/2025 11:30 AM EST Medication Management [facility] MED[facility]INE [address] [place] [address] Yu Busby PharmD 230 [place] [address] documented as of this encounter Goals Goal [...] documented as of this encounter Care Teams Experimental Assembler Relationship Specialty Start Date End Date Angelique Grace DO [address] [place] [address] PCP - General Family Medicine 03/14/18 Yu Busby, PharmD 230 [place] [address] Pharmacist Internal Medicine 11/03/22 documented as of this encounter
--- OUTSIDE RECORDS SUMMARY | 2024-12-28 09:42 | XMS_ITS | Encounter Summary ---
Author Organization [employer] Address 75 [facility] 7t [place] [address] Care Team Providers Care Air Traffic Control Supervisor Name Role Phone Angelique Grace DO Primary Care Provider +1- [phone] Yu Busby PharmD Unavailable [phone] Reason for Visit * Reason Comments Med Refill Encounter Details Date Type Department Care Team ([facility] st Contact Info) Description 02/14/2023 Refill [facility] MED[facility]INE 230 [place] [address] Yulisa Cedillo MD 230 [place] [address] Primary hypertension Social History Tobacco Use Types [...] Medication Management [facility] MEDICINE 230 [place], [place] [phone] Yu Busby PharmD 230 [place], [place] [phone] documented as of this encounter Goals Goal [...] documented as of this encounter Care Teams Air Traffic Control Supervisor Relationship Specialty Start Date End Date Angelique Grace DO [address] [place] [address] [phone] PCP - General Family Medicine 03/14/18 Yu Busby PharmD [address] [place] [address] [phone] Pharmacist Internal Medicine 11/03/22 documented as of this encounter
--- OUTSIDE RECORDS SUMMARY | 2024-12-28 09:42 | XMS_ITS | Encounter Summary ---
Author Organization [employer] Address 75 [facility] 7t [place] [address] Care Team Providers Care Floor Broker Name Role Phone Angelique Grace DO Primary Care Provider +1- [phone] Yu Busby PharmD Unavailable [phone] Reason for Visit * Reason Onset Date Comments callback requested 01/27/2024 Encounter Details Date Type Department Care Team ([facility] st Contact Info) Description 01/27/2024 Telephone [facility] MEDICINE 230 [place] [address] Angelique Grace DO 230 [place] [address] callback requested Social History Tobacco Use Types [...] has to payout of pocket , Callback [phone] documented in this encounter Plan of Treatment Upcoming Encounters Date Type Department Care Team (Late st Contact Info) Description 01/31/2025 11:30 AM EST Medication Management [facility] MED[facility]INE [address] [place] [address] Yu Busby PharmD [address] [place] [address] documented as of this encounter Goals Goal [...] documented as of this encounter Care Teams Floor Broker Relationship Specialty Start Date End Date Angelique Grace DO 230 [place] [address] PCP - General Family Medicine 03/14/18 Yu Busby PharmD 230 [place] [address] Pharmacist Internal Medicine 11/03/22 documented as of this encounter
--- OUTSIDE RECORDS SUMMARY | 2024-12-28 09:42 | XMS_ITS | Clinical Summary ---
Author Organization [address] [place] [address] Address [address] [place] [address] Phone Care Team Providers Care Resource Program Teacher Name Role Phone Kaye Gracefer Agustin DE JESUS Primary Care Provider +1- [phone] Allergies Active Allergy Reactions Criticality Noted Date [...] 2 TABLETS PER 24 HOURS 2 Active cyclobenzaprine (FLEXERIL) 10 mg tablet Take 1 tablet (10 mg total) by mouth 2 times daily as needed. 5 07/05/19 26 Active Farxiga 10 mg tablet TOME SHANELLE TABLETA VIA ORAL CADA MANANA Active diphenhydrAMINE (BENADRYL) 25 mg capsule Take [...] under the skin once a week Active diclofenac (Voltaren Arthritis Pain) 1 % topical gel Apply 4 g topically 2 (two) times a day. 240 g 1 5 02/17/20 25 Active Encounters Date Type Department Care Team Description 12/18/2024 2:00 PM EDT Office Visit [facility] [place] [address] [address] George Nicolas, DPM Tendonitis, Achilles, right (Primary Dx) from Last 3 Months Surgical History Surgery [...] 09/10/2024 1:36 PM EDT Plan of Treatment Upcoming Encounters Date Type Department Care Team (Late st Contact Info) Description 01/30/2025 1:15 PM EST Office Visit [facility] [place] [address] [address] George Nicolas, DPM [address] [address] Health Maintenance Due Date Last Done Comments Breast Cancer Screening 1970 Colorectal Cancer Screening: Colonoscopy 1970 Diabetes: Annual Foot Exam 1980 Cervical Cancer Screening: Pap Smear 1991 RSV Immunization Adult Patients (1 - Risk 50-74 years 1-dose series) 2020 Diabetes: Annual Urine Albumin-Creatinine Ratio (uACR) 10/06/2023 Social Influencers of Health Screening 10/06/2023 Depression Screening 03/14/2024 Influenza Vaccine (#1) 2024 , 02/09/2023, 01/12/2022, Additional history exists Diabetes: Blood Sugar Control Test (HGBA1C) 05/10/2025 11/07/2024, 07/04/2024 Diabetes: Annual Retina Eye Exam 07/17/2025 [...] complete this topic Insurance MEDICAID - [place] [facility] MED[place] Care Teams Resource Program Teacher Relationship Specialty Start Date End Date Angelique Grace DO [address] [place] [address] PCP - General 07/23/11
--- OUTSIDE RECORDS SUMMARY | 2024-12-28 09:42 | XMS_ITS | Encounter Summary ---
Author Organization [employer] Address 75 [facility] 7t [place] [address] Care Team Providers Care Leather Case Finisher Name Role Phone Angelique Grace DO Primary Care Provider +1- [phone] Yu Busby PharmD Unavailable [phone] Reason for Visit * Reason Comments Med Refill Encounter Details Date Type Department Care Team ([facility] st Contact Info) Description 06/01/2023 Refill [facility] MEDICINE 230 [place] [address] Yulisa Cedillo MD 230 [place], [place] [phone] Primary hypertension Social History Tobacco Use Types [...] 11:30 AM EST Medication Management [facility]INE 230 [place], [place] [phone] Yu Busby PharmD 230 [place], [place] [phone] documented as of this encounter Goals Goal [...] documented as of this encounter Care Teams Leather Case Finisher Relationship Specialty Start Date End Date Angelique Grace DO [address] [place] [address] [phone] PCP - General Family Medicine 03/14/18 Yu Busby PharmD [address] [place] [address] [phone] Pharmacist Internal Medicine 11/03/22 documented as of this encounter
--- OUTSIDE RECORDS SUMMARY | 2024-12-28 09:43 | XMS_ITS | Encounter Summary ---
Author Organization [employer] Address 75 [facility] 7t [place] [address] Care Team Providers Care Computer Programming Professor Name Role Phone CalebAngelique espinoza Primary Care Provider +1- [phone] Yu Busby PharmD Unavailable [phone] Encounter Details Date Type Department Care Team (Late st Contact Info) Description 05/12/2023 Orders Only [facility] 230 [place] [address] ProviderKhadar MD Social History Tobacco Use Types [...] 11:30 AM EST Medication Management [facility] MEDICINE 230 [place], [place] [phone] Puia, Yu, PharmD 230 [place], [place] [phone] documented as of this encounter Goals Goal Patient Goal Type Associated Problems Recent Progress Patient-Stated? Author Smoking cessation General No Puia, Yu, PharmD Hemoglobin A1c < 7 Result Component 9.1( 2:43 PM EDT) No DellogonoZachis, PharmD Record your blood sugar as directed Result Component No Puia, Yu, PharmD documented as of this encounter Procedures [...] documented as of this encounter Care Teams Computer Programming Professor Relationship Specialty Start Date End Date Angelique rGace DO 230 [place], [place] [phone] PCP - General Family Medicine 03/14/18 Puia, Yu, PharmD 230 [place], [place] [phone] Pharmacist Internal Medicine 11/03/22 documented as of this encounter
--- OUTSIDE RECORDS SUMMARY | 2024-12-28 09:43 | XMS_ITS | Encounter Summary ---
Author Organization [employer] Address 75 [facility] 7t [place] [address] Care Team Providers Care Automation Sales Manager Name Role Phone Angelique Grace DO Primary Care Provider +1- [phone] Yu Busby PharmD Unavailable [phone] Encounter Details Date Type Department Care Team (Late st Contact Info) Description 2023 Abstract [facility] MEDICINE 230 [place] [address] Angelique Grace DO 230 [place] [address] Social History Tobacco Use Types Packs/Day Years [...] [facility] MED[facility]INE 230 [place], [place] [phone] Yu Bsuby PharmD 230 [place], [place] [phone] documented as of this encounter Goals Goal [...] documented as of this encounter Care Teams Automation Sales Manager Relationship Specialty Start Date End Date Angelique Grace DO [address] [place] [address] [phone] PCP - General Family Medicine 03/14/18 Yu Busby PharmD [address] [place] [address] [phone] Pharmacist Internal Medicine 11/03/22 documented as of this encounter
--- OUTSIDE RECORDS SUMMARY | 2024-12-28 09:43 | XMS_ITS | Encounter Summary ---
Author Organization [employer] Address 75 [facility] 7t [place] [address] Care Team Providers Care House Calls Nurse Practitioner Name Role Phone Angelique Grace DO Primary Care Provider +1- [phone] Yu Busby PharmD Unavailable [phone] Reason for Visit * Reason Onset Date Comments Durable Medical Equipment 03/03/2023 Encounter Details Date Type Department Care Team ([facility] st Contact Info) Description 03/03/2023 Telephone [facility] MEDICINE 230 [place] [address] Angelique Garce DO [address] [place] [address] Durable Medical Equipment Social History Tobacco Use [...] [employer]ches Please contact pt @ [phone] documented in this encounter Plan of Treatment Upcoming Encounters Date Type Department Care Team (Late st Contact Info) Description 01/31/2025 11:30 AM EST Medication Management [facility] MEDICINE 230 [place] [address] Yu Busby, PharmD [address] [place] [address] documented as of this encounter Goals Goal Patient Goal Type Associated Problems Recent Progress Patient-Stated? Author Smoking cessation General No Yu Busby, PharmD Hemoglobin A1c < 7 Result Component 9.1( 5 2:43 PM EDT) No Castillo Pradhan, PharmYusef Record your blood sugar as directed Result Component No Yu Busby PharmD documented as of this encounter Visit Diagnoses Not on filedocumented in this encounter Additional Health Concerns Assessment Noted Time PHQ-9 Depression Total Score: 0 06/09/19 23 11:27 AM EDT documented as of this encounter Care Teams House Calls Nurse Practitioner Relationship Specialty Start Date End Date Angelique Grace DO [address] [place] [address] PCP - General Family Medicine 03/14/18 Yu Busby PharmD [address] [place] [address] Pharmacist Internal Medicine 11/03/22 documented as of this encounter
--- OUTSIDE RECORDS SUMMARY | 2024-12-28 09:43 | XMS_ITS | Encounter Summary ---
Author Organization [employer] Address [address] [facility] 7t [place] [address] Care Team Providers Care Fence Post Driver Name Role Phone Angelique Grace DO Primary Care Provider [phone]- [phone] Yu Busby PharmD Unavailable [phone] Reason for Visit * Reason Onset Date Comments Call Back Request 03/23/2023 Encounter Details Date Type Department Care Team ([facility] st Contact Info) Description 03/23/2023 Telephone [facility] MEDICINE [address] [place] [address] Angelique Grace DO [address] [place] [address] Call Back Request Social History Tobacco Use [...] a call back in regards pregabalin PA, telegraphic typewriter repairer advise pt about the status on chart but pt still want a call from a nurse. documented in this encounter Plan of Treatment Upcoming Encounters Date Type Department Care Team (Late st Contact Info) Description 01/31/2025 11:30 AM EST Medication Management [facility] MEDICINE [address] [place] [address] PuiaYu, PharmD [address] [place] [address] documented as of this encounter Goals Goal [...] documented as of this encounter Care Teams Fence Post Driver Relationship Specialty Start Date End Date Angelique Grace DO [address] [place] [address] PCP - General Family Medicine 03/14/18 Yu Busby, Radha [address] [place] [address] Pharmacist Internal Medicine 11/03/22 documented as of this encounter
== END 2024-12-28 09:20 | disposition home or self-care (01) ==
LOC: HO.ENCR 09:01
PROVIDERS: PCP Family Medicine; Visit Provider Student in an Organized Health Care Education/Training Program
DX: E05.90 Thyrotoxicosis, unspecified without thyrotoxic crisis or storm (principal)
CPT/HCPCS: 99213

== ENCOUNTER → 2024-12-28 09:00 | Outpatient (BNVA) | payer MEDICAID, SELFPAY | PROVIDERS: PCP Family Medicine; Visit Provider Student in an Organized Health Care Education/Training Program | DX: Z01.818 Encounter for other preprocedural examination (principal); E11.9 Type 2 diabetes mellitus without complications; G56.02 Carpal tunnel syndrome, left upper limb; M65.322 Trigger finger, left index finger; E05.90 Thyrotoxicosis, unspecified without thyrotoxic crisis or storm | CPT/HCPCS: 99212 ==

== ENCOUNTER 2024-12-28 10:59 | Outpatient (AMB) | payer MEDICAID, SELFPAY ==
[2024-12-28 11:25] VITALS: BMI 32.9
--- NOTE | 2024-12-28 11:25 | A.OFFVIS_ITS ---
Vital Signs 12/28/24 11:25 Height 5 ft 1 in Weight 174 lb BMI 32.9 Intake Visit Reasons: New prob-Lt hand 2nd digit locking/swelling Intake Note: Maria C is a 54 year old right hand dominant female who presents today for a New Problem visit with complaints of Left Index Finger Locking & Catching. Patient reports symptoms began about 6 months ago. She complains of left hand numbness, worse at night, daily and intermittent. She finds it difficult to hold certain things and open or close jars. She has tried taking Motrin and Tylenol without relief. She has also tried working on ROM at home. Per chart, Early Left Median CTS seen on 02/10/22 EMG. Hx Diabetes Mellitus Hx of Left Middle Trigger Finger Release, 09/30/22 & Left Ring Trigger Finger Release, 12/14/2021- by Dr. Freitas. Hx of Right Ring Trigger Finger Release, 10/24/[address] Alvarado . Assistant Attorney General Required: Yes Assistant Attorney General Language: Poultry Field Service Technician Name: Raman [id number] Allergies enalapril (ENALAPRIL) Allergy (Severe, Verified 12/28/24 11:32) hives/throat swelling lisinopril (LISINOPRIL) Allergy (Severe, Verified 12/28/24 11:32) hives/throat swelling oxycodone Allergy (Intermediate, Verified 12/28/24 11:32) Vomiting hydrochlorothiazide (HYDROCHLOROTHIAZIDE) Allergy (Unknown, Verified 12/28/24 11:32) Unknown metoprolol (METOPROLOL) Allergy (Unknown, Verified 12/28/24 11:32) Unknown metronidazole (METRONIDAZOLE) Allergy (Unknown, Verified 12/28/24 11:32) Unknown HPI HPI New prob-Lt hand 2nd digit locking/swelling: Details: Maria C is a 54 year old right hand dominant female who presents today for a New Problem visit with complaints of Left Index Finger Locking & Catching. Patient reports symptoms began about 6 months ago. She complains of left hand numbness, worse at night, daily and intermittent. She finds it difficult to hold certain things and open or close jars. She has tried taking Motrin and Tylenol without relief. She has also tried working on ROM at home. Per chart, Early Left Median CTS seen on 02/10/22 EMG. Hx Diabetes Mellitus Hx of Left Middle Trigger Finger Release, 09/30/22 & Left Ring Trigger Finger Release, 12/14/2021- by Dr. Freitas. Hx of Right Ring Trigger Finger Release, 10/24/[address] Mckinney [facility] Medical History Fatty liver Subclinical hyperthyroidism Chest discomfort CAD (coronary artery disease) Right hand pain Numbness and tingling in left hand Trigger finger, right Hyperlipidemia Diabetes GERD (gastroesophageal reflux disease) Depression Anxiety HTN (hypertension) Surgical History History of esophagogastroduodenoscopy (EGD) Hx of cardiac catheterization History of hand surgery Family History Maternal Aunt Dialysis patient Hypertension Diabetes Mother Hypertension Diabetes Father Diabetes Hypertension Social History (Updated 12/28/24 @ 11:28 by BRIAN Shearer) Alcohol intake: never Patient Tobacco Use Status: Former Tobacco user Cigarettes Per Day: 2 Current occupational status: unemployed Current occupation: right handed Review of Systems Const All systems reviewed & are unremarkable except as noted in HPI and below Physical Exam Vital Signs: BMI result Body Mass Index 32.9 Extrem Other: Neuro: Normal sensation of the tips of all digits of bilateral hands in the office today No thenar or intrinsic wasting. Good APB muscle firing and good finger cross. Vascular: Capillary refill brisk. ROM: Patient can make a fist and extend all their digits There is a visible and palpable locking and catching of the left index finger in a flexed position Skin: No lacerations or abrasions noted. General: No ecchymosis. No erythema or evidence of infection. Assessment & Plan Assessment & Plan (1) Diabetes mellitus: Code(s): E11.9 - Type 2 diabetes mellitus without complications Category: Medical (2) Carpal tunnel syndrome of left wrist: Code(s): G56.02 - Carpal tunnel syndrome, left upper limb Category: Medical (3) Trigger finger, left index finger: Code(s): M65.322 - Trigger finger, left index finger Category: Medical Plan 1. Left index finger trigger finger 2. Left carpal tunnel syndrome I educated the patient about the condition. I discussed both operative and nonoperative treatment options. The patient would like to proceed with surgery. [] The risks and benefits of operative treatment were discussed with the patient and the patient wishes to proceed with surgery. These risks include, but are not limited to, risk of damage to blood vessels, nerves, tendons, infection, recurrence, incomplete relief of preoperative symptoms, persistent pain, possible need for further surgery, and the risks associated with regional blocks and/or anesthesia. Plan is to take the patient to the operating room at some point in the next few weeks for the following procedures: 1. Left index finger trigger release under local 2. Left carpal tunnel release under local All of the preoperative paperwork including the consent was discussed today. All of the patient's questions were answered in the clinic today. The patient understands that they will be in contact with our surgical services asst to discuss scheduling their procedure. Patient reports diabetes, last A1c 7.9 Hold Farxiga for 3 days prior to surgery Denies blood thinners, asthma, heart issues, lung issues, kidney issues, or current smoking. Coding Level of Care Code Est Pt Level 4 (67522) Diagnoses Diabetes mellitus E11.9 Carpal tunnel syndrome of left wrist G56.02 Trigger finger, left index finger M65.322
== END 2024-12-28 12:20 | disposition home or self-care (01) ==
LOC: HO.HOS 11:00
PROVIDERS: PCP Family Medicine
DX: E11.9 Type 2 diabetes mellitus without complications (principal); G56.02 Carpal tunnel syndrome, left upper limb; M65.322 Trigger finger, left index finger
CPT/HCPCS: 99214

== ENCOUNTER 2024-12-31 08:52 | Day surgery (SDC) | payer MEDICAID, SELFPAY ==
[2024-12-31 05:44] VITALS: BMI 32.9
--- NOTE | 2024-12-31 09:02 | P.OP_ITS ---
Operative Note Operative Note Date of Service: 12/31/24 Narrative: Preop diagnosis: 1. Left Carpal tunnel syndrome 2. Left index finger trigger finger Postop diagnosis: same Procedure: 1. Left Carpal tunnel release 2. Left index finger trigger release Surgeon: Leslie Freitas MD Content Publisher: Wilfrido BILL Anesthesia: local block using 1% lidocaine with epinephrine Findings: Thickened transverse carpal ligament. EBL: Less than 5 mL Specimens: None Complications: None Disposition: Brought to recovery room in stable condition Plan: Follow-up for 10-14 days for wound check and suture removal Indications: The patient is 54 years old, with left carpal tunnel syndrome and a left index finger trigger finger that have been unresponsive to nonoperative management. The risks and benefits of operative treatment including but not limited to risk of damage to blood vessels, nerves, tendons, infection, persistent pain, persistent symptoms, or possible need for additional surgery were discussed with the patient and the patient wishes to proceed with s urgery. Procedure: Once consent was obtained a local block was performed using a combination of 1% lidocaine with epinephrine. The patient was then brought back to the operating suite and placed on the operative table in supine position. The left upper extremity was prepped and draped in a standard surgical fashion. Once assured that we had a good block, a 1.5 cm oblique incision was made centered over the A1 jason of the left index finger . The incision was made through the skin to the subcutaneous tissues using a #15 blade. Careful dissection was made down to the level of the A1 jason using tenotomy scissors, with care being taken to protect the nearby neurovascular structures. A longitudinal incision was made in the A1 jason 1st using a #15 blade, then using tenotomy scissors under direct visualization. The A1 jason was noted to be thickened. Following our A1 jason release, we no longer saw any locking or catching of the digit with flexion and extension. Once assured that we had a good block, a 2.0 cm longitudinal incision was made centered over the left carpal tunnel. The incision was made through the skin to the subcutaneous tissues using a #15 blade. Dissection was made down to the level of the transverse carpal ligament with care being taken to protect the palmar cutaneous nerve. Once the transverse carpal ligament was clearly visualized, a longitudinal incision was made in the transverse carpal ligament 1st using a #15 blade, then using tenotomy scissors under direct visualization. Care was taken to look for and protect the motor branch of the median nerve when seen in this area. Once satisfied with our carpal tunnel release and index finger trigger release the wounds were copiously irrigated with normal saline and hemostasis was obtained with a brief period of local pressure. The skin edges were reapproximated with some 5.0 nylon suture material and a sterile dressing was applied. The patient appears to have tolerated the procedure well and with no complications. All digits were well vascularized at the conclusion of the case.
--- NOTE | 2024-12-31 09:02 | MHC.SHP ---
Pre-Procedural Eval Section A - 24 Hr Update-Section A only Date of Service: 12/31/24 The patient is an INPATIENT: No Changes since office visit: No Cold of Flu in the past 2 weeks, No New Medical Problems, No Changes in Medication and No Patient answered all questions The patient has been examined within 24 hours of the surgical procedure. The History & Physical has been completed within 30 days and I have reviewed it.: Yes Section B - Complete if H&P > 30 days Chief Complaint: carpal tunn,Index trigger finger Allergies: Allergies Allergy/AdvReac Type Severity Reaction Status Date / Time enalapril (ENALAPRIL) Allergy Severe hives/throat Verified 12/28/24 11:32 swelling lisinopril (LISINOPRIL) Allergy Severe hives/throat Verified 12/28/24 11:32 swelling oxycodone Allergy Intermediate Vomiting Verified 12/28/24 11:32 hydrochlorothiazide Allergy Unknown Unknown Verified 12/28/24 11:32 (HYDROCHLOROTHIAZIDE) metoprolol (METOPROLOL) Allergy Unknown Unknown Verified 12/28/24 11:32 metronidazole (METRONIDAZOLE) Allergy Unknown Unknown Verified 12/28/24 11:32 Plan Diagnosis/Plan: Unchanged I have reviewed the history and physical and performed a pertinent physical examination on my patient. No changes have occurred unless specified. Time Spent With Patient Time: Total time managing care of this patient today ____ minutes.
[2024-12-31 10:21] VITALS: BP 145/79; PULSE 75; RESP 18; O2SAT 97
== END 2024-12-31 10:46 | disposition home or self-care (01) ==
PROVIDERS: PCP Family Medicine; Visit Provider Orthopaedic Surgery
PROC: (CPT 64721; principal; 2024-12-31 16:30)
PROC: (CPT 26055; 2024-12-31 16:30)
DX: G56.02 Carpal tunnel syndrome, left upper limb (principal); M65.322 Trigger finger, left index finger; R20.0 Anesthesia of skin; R20.2 Paresthesia of skin; I10 Essential (primary) hypertension; I25.10 Atherosclerotic heart disease of native coronary artery without angina pectoris; E78.5 Hyperlipidemia, unspecified; E11.9 Type 2 diabetes mellitus without complications; E05.90 Thyrotoxicosis, unspecified without thyrotoxic crisis or storm; Z88.5 Allergy status to narcotic agent; Z88.8 Allergy status to other drugs, medicaments and biological substances; F32.A Depression, unspecified; A41.9 Sepsis, unspecified organism; Z98.890 Other specified postprocedural states; Z56.0 Unemployment, unspecified; Z87.891 Personal history of nicotine dependence
CPT/HCPCS: 64721; 26055; J0165; J2003

== ENCOUNTER → 2024-12-31 08:52 | Outpatient (BNV) | payer MEDICAID, SELFPAY | PROVIDERS: PCP Family Medicine; Visit Provider Orthopaedic Surgery | DX: G56.02 Carpal tunnel syndrome, left upper limb (principal); M65.322 Trigger finger, left index finger | CPT/HCPCS: 26055; 64721 ==

== ENCOUNTER 2025-01-15 14:52 | Outpatient (AMB) | payer MEDICAID, SELFPAY ==
--- NOTE | 2025-01-15 15:10 | A.OFFVIS_ITS ---
Intake Visit Reasons: PO LT CTR/IF trigger 12/31/24 AR Intake Note: Maria C is a 54 year old right hand dominant female who presents today for a Post-operative visit status post Left Carpal Tunnel Release & Left Index Trigger Finger Release performed by Fortino on 12/31/24. At today's visit she states that her incision sites are 'itchy but no changes to report. Allergies enalapril (ENALAPRIL) Allergy (Severe, Verified 12/28/24 11:32) hives/throat swelling lisinopril (LISINOPRIL) Allergy (Severe, Verified 12/28/24 11:32) hives/throat swelling oxycodone Allergy (Intermediate, Verified 12/28/24 11:32) Vomiting hydrochlorothiazide (HYDROCHLOROTHIAZIDE) Allergy (Unknown, Verified 12/28/24 11:32) Unknown metoprolol (METOPROLOL) Allergy (Unknown, Verified 12/28/24 11:32) Unknown metronidazole (METRONIDAZOLE) Allergy (Unknown, Verified 12/28/24 11:32) Unknown HPI HPI PO LT CTR/IF trigger 12/31/24 AR: Details: Maria C is a 54 year old right hand dominant female who presents today for a Post-operative visit status post Left Carpal Tunnel Release & Left Index Trigger Finger Release performed by Fortino on 12/31/24. At today's visit she states that her incision sites are 'itchy but no other issues to report. Denies ongoing locking and catching, states that numbness and tingling of the left hand has resolved. No other acute complaints or concerns at this time. [facility] Medical History Fatty liver Subclinical hyperthyroidism Chest discomfort CAD (coronary artery disease) Right hand pain Numbness and tingling in left hand Trigger finger, right Hyperlipidemia Diabetes GERD (gastroesophageal reflux disease) Depression Anxiety HTN (hypertension) Surgical History History of esophagogastroduodenoscopy (EGD) Hx of cardiac catheterization History of hand surgery Family History Maternal Aunt Dialysis patient Hypertension Diabetes Mother Hypertension Diabetes Father Diabetes Hypertension Social History (Updated 12/28/24 @ 11:28 by YUKO Shearer Alcohol intake: never Comment: counts correct Patient Tobacco Use Status: Former Tobacco user Cigarettes Per Day: 2 Current occupational status: unemployed Current occupation: right handed Review of Systems Const All systems reviewed & are unremarkable except as noted in HPI and below Physical Exam Extrem Other: Neuro: Normal sensation of the tips of all digits of bilateral hands in the office today No thenar or intrinsic wasting. Good APB muscle firing and good finger cross. Vascular: Capillary refill brisk. ROM: Patient can make a fist and extend all their digits There is no further visible and palpable locking and catching of the left index finger in a flexed position Skin: Well approximated and well healing incision sites noted over the volar left wrist and over the A1 jason of the left index finger No lacerations or abrasions noted. General: No ecchymosis. No erythema or evidence of infection. Assessment & Plan Assessment & Plan (1) Carpal tunnel syndrome of left wrist: Code(s): G56.02 - Carpal tunnel syndrome, left upper limb Category: Medical (2) Trigger finger, left index finger: Code(s): M65.322 - Trigger finger, left index finger Category: Medical Plan 1. Status post left carpal tunnel release 2. Status post left index finger trigger release With good symptom resolution postoperatively DOS 12/31/2024 Patient appears to be recovering well postoperatively Patient is educated about the typical recovery course No under water times one-week, 2 lb weight limit x2 weeks Patient appears to be recovering very well, and requires no further acute follow-up with us postoperatively Patient is educated and worrisome signs and symptoms, and should call us if they experience any of these, including but not limited to redness, swelling, increased pain, and discharge Patient understands this and is amenable to this plan Follow-up as needed Coding Level of Care Code Global (04079) Diagnoses Carpal tunnel syndrome of left wrist G56.02 Trigger finger, left index finger M65.322
--- OUTSIDE RECORDS SUMMARY | 2025-01-15 17:56 | XMS_ITS | Encounter Summary ---
Author Organization [employer] Address [address] [place] [address] 7t [place] [address] Care Team Providers Care Cement Mason Helper Name Role Phone Angelique Grace DO Primary Care Provider [phone]- [phone] Yu Busby PharmD Unavailable [phone] Reason for Visit * Reason Onset Date Comments Medication Question 12/15/2022 nitroglyceri n (Nitrostat) 0.4 MG SL tablet Encounter Details Date Type Department Care Team (Late st Contact Info) Description 12/15/2022 Telephone [facility] MEDICINE [address] [place] [address] Angelique Grace DO [address] [place], [place] [phone] Medication Question (nitroglycerin (Nitrostat) 0.4 MG SL [...] Miscellaneous Notes * Telephone Encounter - Eyal Ryedr - 12/15/2022 2:05 PM EDT Referral to Cardiology found 01/2022. Dr. Bruno # [phone] FAX [phone] * Telephone Encounter - Snow Pickard - 12/15/2022 1:51 PM EDT Tc from pt requesting status on last message . Investment Specialist informed has to contact her cardiology dr whoprescribes medication . * Telephone Encounter - Aleida Celis - 12/15/2022 10:48 AM EDT Tc from patient requesting medication nitroglycerin (Nitrostat) 0.4 MG SL tablet. Patient states she is traveling to [place] due to Mom's passing on 12/09/22. Patient is afraid with crying and emotions of getting chest pain as she has in the past. She's traveling at 3 pm today. Patient denied any symptoms at this time. Patient speaks citizen of [place]. documented in this encounter Plan of Treatment Upcoming Encounters Date Type Department Care Team (Late st Contact Info) Description 01/28/2025 2:45 PM EST Office Visit [facility] MEDICINE [address] [place] [address] Nannette Daigle FNP [address] [place] [address] 01/31/2025 11:30 AM EST Medication Management [facility] MEDICINE [address] [place] [address] Yu Busby PharmD [address] [place] [address] documented as of this encounter Goals Goal [...] documented as of this encounter Care Teams Cement Mason Helper Relationship Specialty Start Date End Date Angelique Grace DO [address] [place] [address] PCP - General Family Medicine 03/14/18 Yu Busby PharmD [address] [place] [address] Pharmacist Internal Medicine 11/03/22 documented as of this encounter
--- OUTSIDE RECORDS SUMMARY | 2025-01-15 17:56 | XMS_ITS | Encounter Summary ---
Author Organization [employer] Address [address] [facility] 7t [place] [address] Care Team Providers Care Breaker Unit Assembler Name Role Phone Angelique Grace DO Primary Care Provider [phone]- [phone] Yu Busby PharmD Unavailable [phone] Reason for Visit * Reason Comments Med Refill Encounter Details Date Type Department Care Team ([facility] st Contact Info) Description 11/03/2023 Refill [facility] MEDICINE [address] [place] [address] Angelique Grace DO [address] [place] [address] Social History Tobacco Use Types Packs/Day Years [...] Description 01/28/2025 2:45 PM EST Office Visit [address] [address] Nannette Daigle FNP [address] [place] [address] 01/31/2025 11:30 AM EST Medication Management [address] [address] Puia, Yu, PharmD [address] [place] [address] documented as of this encounter Goals Goal [...] documented as of this encounter Care Teams Breaker Unit Assembler Relationship Specialty Start Date End Date Angelique Grace DO [address] [place] [phone] PCP - General Family Medicine 03/14/18 Puia, Yu, PharmD [address] [place] [phone] Pharmacist Internal Medicine 11/03/22 documented as of this encounter
--- OUTSIDE RECORDS SUMMARY | 2025-01-15 17:56 | XMS_ITS | Encounter Summary ---
Author Organization [employer] Address [address] [facility] 7t [place] [address] Care Team Providers Care Credit Rating Checker Name Role Phone Angelique Grace DO Primary Care Provider [phone]- [phone] Yu Busby PharmD Unavailable [phone] Reason for Visit * Reason Onset Date Comments Med Refill 03/01/2024 Encounter Details Date Type Department Care Team ([facility] st Contact Info) Description 03/01/2024 Telephone [facility] MEDICINE [address] [place] [address] Angelique Grace DO [address] [place] [address] Med Refill Social History Tobacco Use Types [...] be sent to: [facility] [address] documented in this encounter Plan of Treatment Upcoming Encounters Date Type Department Care Team (Late st Contact Info) Description 01/28/2025 2:45 PM EST Office Visit [facility] MEDICINE [address] [place] [address] Nannette Daigle FNP [address] [place] [address] 01/31/2025 11:30 AM EST Medication Management [facility] MEDICINE [address] [place] [address] Yu Busby, PharmD [address] [place] [address] documented as of this encounter Goals Goal [...] documented as of this encounter Care Teams Credit Rating Checker Relationship Specialty Start Date End Date Angelique Grace DO [address] [place] [address] PCP - General Family Medicine 03/14/18 Yu Busby PharmD [address] [place] [address] Pharmacist Internal Medicine 11/03/22 documented as of this encounter
--- OUTSIDE RECORDS SUMMARY | 2025-01-15 17:56 | XMS_ITS | Clinical Summary ---
Author Organization [facility] Address [address] [facility] [address] [place] [phone] Phone Care Team Providers Care Ships Equipment Engineer Name Role Phone Angelique Grace Primary Care Provider [phone] Allergies Active Allergy Reactions Criticality Noted Date [...] on file Insurance ACO ACO Care Teams Ships Equipment Engineer Relationship Specialty Start Date End Date Angelique Grace DO [address] [place] [address] [place] [address] PCP - General Family Medicine 08/02/23 Additional Source Comments The information contained in this document represents components of the legal health record. It is not the complete legal health record.[facility]
--- OUTSIDE RECORDS SUMMARY | 2025-01-15 17:56 | XMS_ITS | Encounter Summary ---
Author Organization [employer] Address [address] [facility] 7t [place] [address] Care Team Providers Care Seconds Inspector Name Role Phone Angelique Grace DO Primary Care Provider [phone]- [phone] Yu Busby PharmD Unavailable [phone] Reason for Visit * Reason Onset Date Comments Nurse Triage 01/10/2023 Encounter Details Date Type Department Care Team ([facility] st Contact Info) Description 01/10/2023 Telephone [facility] MEDICINE [address] [place] [address] Angelique Grace DO [address] [place] [address] Nurse Triage Social History Tobacco Use Types [...] 01/10/2023 4:01 PM EDT Triage call with [employer] Assembly Supervisor [place] [id number] Pt reports burning with urination which started yesterday. Urine has a foul odor, low back pain andbil leg pain. Pt is advised to come to [facility] to be seen and Pt agrees [...] accepted this outcome Please contact pt at [phone] (Malay) documented in this encounter Plan of Treatment Upcoming Encounters Date Type Department Care Team ([facility] st Contact Info) Description 01/28/2025 2:45 PM EST Office Visit [facility] MEDICINE [address] [place] [phone] Nannette Daigle FNP [address] [place], [place] [phone] 01/31/2025 11:30 AM EST Medication Management [facility] MEDICINE [address] [place] [address] Yu Busby PharmD [address] [place] [address] documented as of this encounter Goals Goal [...] documented as of this encounter Care Teams Seconds Inspector Relationship Specialty Start Date End Date Angelique Grace DO [address] [place], [place] [phone] PCP - General Family Medicine 03/14/18 Yu Busby, PharmD [address] [place], [place] [phone] Pharmacist Internal Medicine 11/03/22 documented as of this encounter
--- OUTSIDE RECORDS SUMMARY | 2025-01-15 17:56 | XMS_ITS | Encounter Summary ---
Author Organization [employer] Address 75 [facility] 7t [place] [address] Care Team Providers Care Abrasive Coating Machine Operator Name Role Phone Angelique Grace DO Primary Care Provider [phone]- [phone] Yu Busby PharmD Unavailable [phone] Reason for Visit * Reason Onset Date Comments Referral 01/14/2025 Encounter Details Date Type Department Care Team ([facility] st Contact Info) Description 01/14/2025 Telephone [facility] [address] [place] [address] Angelique Grace DO [address] [place] [address] Referral Social History Tobacco Use Types Packs/Day [...] * Telephone Encounter - Carlos Velazquez - 01/14/2025 4:21 PM EST Tc from pt requesting physical therapy for the foot and would like to be referred to a location in [place] due to transportation. Pt is also requesting a call back to further discuss. Please contact pt at [phone]. (Japanese Speaking) documented in this encounter Plan of Treatment Upcoming Encounters Date Type Department Care Team ([facility] st Contact Info) Description 01/28/2025 2:45 PM EST Office Visit [facility] [address] [place] [address] Nannette Daigle FNP [address] [place] [address] 01/31/2025 11:30 AM EST Medication Management [facility] [address] [place] [address] Yu Busby, PharmD [address] [place] [address] documented as of this encounter Goals Goal [...] documented as of this encounter Care Teams Abrasive Coating Machine Operator Relationship Specialty Start Date End Date Angelique Grace DO [address] [place] [address] PCP - General Family Medicine 03/14/18 Yu uBsby PharmD [address] [place] [address] Pharmacist Internal Medicine 11/03/22 documented as of this encounter
--- OUTSIDE RECORDS SUMMARY | 2025-01-15 17:56 | XMS_ITS | Encounter Summary ---
Author Organization [employer] Address 75 [facility] 7t [place] [address] Care Team Providers Care Phy Therapist Name Role Phone Angelique Grace DO Primary Care Provider [phone]- [phone] Yu Busby PharmD Unavailable [phone] Reason for Visit * Reason Onset Date Comments Switch to televisit 06/28/2024 Encounter Details Date Type Department Care Team ([facility] st Contact Info) Description 06/28/2024 Telephone [facility] [address] [place] [address] Angelique Grace DO [address] [place] [address] Switch to televisit Social History Tobacco Use [...] today at 1:30 pm with Yu Busby. [phone] documented in this encounter Plan of Treatment Upcoming Encounters Date Type Department Care Team (Late st Contact Info) Description 01/28/2025 2:45 PM EST Office Visit [facility] [address] [place] [address] Nannette Daigle FNP [address] [place] [address] 01/31/2025 11:30 AM EST Medication Management [facility] [address] [place] [phone] Yu Busby PharmD [address] [place] [address] documented as of this encounter Goals Goal [...] documented as of this encounter Care Teams Phy Therapist Relationship Specialty Start Date End Date Angelique Grace DO [address] [place] [address] PCP - General Family Medicine 03/14/18 Yu Busby PharmD [address] [place] [address] Pharmacist Internal Medicine 11/03/22 documented as of this encounter
--- OUTSIDE RECORDS SUMMARY | 2025-01-15 17:56 | XMS_ITS | Encounter Summary ---
Author Organization [employer] Address [address] [facility] 7t [place] [address] Care Team Providers Care Tree Warden Name Role Phone Angelique Grace DO Primary Care Provider [phone]- [phone] Yu Busby PharmD Unavailable [phone] Reason for Visit * Reason Onset Date Comments Medication Question 02/16/2024 Encounter Details Date Type Department Care Team ([facility] st Contact Info) Description 02/16/2024 Telephone [facility] [address] [place] [address] Angelique Grace DO [address] [place] [address] Medication Question Social History Tobacco Use Types [...] [facility] [address] [place] [address] Nannette Daigle FNP [address] [place] [address] 01/31/2025 11:30 AM EST Medication Management [address] [address] Yu Busby PharmD [address] [place] [address] documented as of this encounter Goals Goal [...] documented as of this encounter Care Teams Tree Warden Relationship Specialty Start Date End Date Angelique Grace DO [address] [place] [address] [phone] PCP - General Family Medicine 03/14/18 Yu Busby PharmD [address] [place] [address] [phone] Pharmacist Internal Medicine 11/03/22 documented as of this encounter
--- OUTSIDE RECORDS SUMMARY | 2025-01-15 17:56 | XMS_ITS | Encounter Summary ---
Author Organization [employer] Address [address] [place] [address] 7t [place] [address] Care Team Providers Care Wood Router Name Role Phone Angelique Grace DO Primary Care Provider [phone]- [phone] DelCastillo clements PharmD Unavailable Unavail able Yu Busby PharmD Unavailable Reason for Visit * Reason Comments Med Refill Encounter Details Date Type Department Care Team (Late st Contact Info) Description 06/02/2022 Refill [facility] [address] [place] [address] Yulisa Cedillo MD [address] [place] [address] Primary hypertension Social History Tobacco Use Types [...] Description 01/28/2025 2:45 PM EST Office Visit [facility] [address] [place] [address] Nannette Daigle FNP 230 [place] [address] 01/31/2025 11:30 AM EST Medication Management [facility] [place] [address] Yu Busby PharmD [address] [place] [address] documented as of this encounter Visit Diagnoses Diagnosis Primary hypertension Unspecified essential hypertension documented in this encounter Care Teams Wood Router Relationship Specialty Start Date End Date Angelique Grace DO [address] [place] [address] PCP - General Family Medicine 03/14/18 Castillo Pradhan, Radha [address] [place] [address] Pharmacist Internal Medicine 07/22/22 11/02/22 Yu Busby, Radha [address] [place] [address] Pharmacist Internal Medicine 11/03/22 documented as of this encounter
--- OUTSIDE RECORDS SUMMARY | 2025-01-15 17:56 | XMS_ITS | Encounter Summary ---
Author Organization [email or web address] Address [address] [facility] 7t [place] [address] Care Team Providers Care Water Systems Engineer Name Role Phone Angelique Grace DO Primary Care Provider [phone]- [phone] Yu Busby PharmD Unavailable [phone] Reason for Visit * Reason Comments Med Refill Encounter Details Date Type Department Care Team ([facility] st Contact Info) Description 02/14/2023 Refill [facility] [address] [place] [address] Yulisa Cedillo MD 230 [place] [address] Primary hypertension Social History Tobacco Use Types [...] Description 01/28/2025 2:45 PM EST Office Visit [address] [address] Nannette Daigle FNP [address] [place] [address] 01/31/2025 11:30 AM EST Medication Management [address] [address] PuiaYu, PharmD [address] [place] [phone] documented as of this encounter Goals Goal [...] documented as of this encounter Care Teams Water Systems Engineer Relationship Specialty Start Date End Date Angelique Grace DO [address] [place] [address] PCP - General Family Medicine 03/14/18 Puia, Yu, PharmD [address] [place] [phone] Pharmacist Internal Medicine 11/03/22 documented as of this encounter
--- OUTSIDE RECORDS SUMMARY | 2025-01-15 17:56 | XMS_ITS | Clinical Summary ---
Author Organization [address] [place] [address] Address [address] [place] [address] Phone Care Team Providers Care Plug And Mold Finisher Name Role Phone Kaye Gracefer Agustin DE JESUS Primary Care Provider [phone]- [phone] Allergies Active Allergy Reactions Criticality Noted Date [...] PM EDT Office Visit [facility] [place] [address] [address] George Nicolas, DPM Tendonitis, Achilles, [...] PM EST Office Visit [facility] [place] [address] [place] [address] [place] [phone] George Nicolas, SHANNON [address] [place] [phone] Health Maintenance Due Date Last Done Comments [...] - [place] [facility] [employer]ICA[employer] Care Teams Plug And Mold Finisher Relationship Specialty Start Date End Date Angelique Grace DO [address] [place] [address] PCP - General 07/23/11
--- OUTSIDE RECORDS SUMMARY | 2025-01-15 17:56 | XMS_ITS | Encounter Summary ---
Author Organization [employer] Address 75 [facility] 7t [place] [address] Care Team Providers Care Laboratory Veterinarian Name Role Phone Angelique Grace DO Primary Care Provider +1- [phone] Yu Busby PharmD Unavailable [phone] Encounter Details Date Type Department Care Team (Late st Contact Info) Description 08/03/2024 Telephone [facility] [address] [place] [address] Angelique Grace DO [address] [place] [address] Social History Tobacco Use Types Packs/Day Years [...] wasdiscussed in the past. Contact pt at [phone] documented in this encounter Plan of Treatment Upcoming Encounters Date Type Department Care Team (Late st Contact Info) Description 01/28/2025 2:45 PM EST Office Visit [facility] [address] [place] [address] Nannette Daigle FNP [address] [place] [address] 01/31/2025 11:30 AM EST Medication Management [facility] [address] [place] [address] Yu Busby PharmD [address] [place] [phone] documented as of this encounter Goals Goal Patient Goal Type Associated Problems Recent Progress Patient-Stated? Author Smoking cessation General No Yu Busby PharmD Hemoglobin A1c < 7 Result Component 9.1(08/27/202 5 2:43 PM EDT) No Castillo Pradhan PharmD Record your blood sugar as directed Result Component No Yu Busby PharmD documented as of this encounter Visit Diagnoses Not on filedocumented in this encounter Additional Health Concerns Assessment Noted Time PHQ-9 Depression Total Score: 0 07/05/19 25 11:39 AM EDT documented as of this encounter Care Teams Laboratory Veterinarian Relationship Specialty Start Date End Date Angelique Grace DO [address] [place] [address] PCP - General Family Medicine 03/14/18 Yu Busby PharmD [address] [place] [address] Pharmacist Internal Medicine 11/03/22 documented as of this encounter
--- OUTSIDE RECORDS SUMMARY | 2025-01-15 17:56 | XMS_ITS | Clinical Summary ---
Author Organization [employer] Address [address] [facility] 7t [place] [address] Care Team Providers Care Assistant Football Coach Name Role Phone Angelique Grace DO Primary Care Provider [phone] Yu Busby PharmD Unavailable [phone] Allergies Active Allergy Reactions Criticality Noted [...] mg by mouth in the morning. Active Procto-Med HC 2.5 % rectal cream apply by topical route 4 times every day to the affected area(s) as needed for Hemorrhoids 28 g 2 Active cholecalciferol (Vitamin D-3) 50 MCG (1999 UT) tabletIndications :Vitamin D deficiency TAKE ONE TABLET BY MOUTH EVERY DAY 90 tablet 025 Active Alcohol Swabs padsIndications:T ype 2 diabetes mellitus without complication, with long-term current use of insulin ([facility]) USE DIRECTED FOUR TIMES A DAY FOR BLOOD SUGAR TESTING AND INSULIN INJECTION 200 each Active glucose blood (FREESTYLE LITE) test stripIndications: Type 2 diabetes mellitus without complication, with long-term current use of insulin ([facility]) Test blood sugars three times a day 100 each Active insulin pen needle (B-D ULTRAFINE III SHORT PEN) 31G X 8 mm miscIndications:T ype 2 diabetes mellitus without complication, with long-term current use of insulin ([facility]) Use once daily for insulin injection 100 each 025 Active TRUEplus Lancets 33G miscIndications:T ype 2 diabetes mellitus without complication, with long-term current use of insulin ([facility]) Use to test blood sugar 3 time(s) daily 100 each Active dapagliflozin (Farxiga) 10 MGIndications:Typ e 2 diabetes mellitus without complication, with long-term current use of insulin ([facility]) TAKE ONE TABLET BY MOUTH EVERY DAY IN THE MORNING 30 tablet Active diphenhydrAMINE (BENADryl) 25 MG capsuleIndication s:Allergic rhinitis, unspecified seasonality, unspecified trigger Take 1 capsule (25 mg) by mouth if needed at bedtime for allergies. 90 capsule 025 Active ascorbic acid (Vitamin C) 250 MG tablet TAKE 1 TABLET BY MOUTH TWICE A DAY WITH FERROUS SULFATE 180 tablet Active omeprazole (PriLOSEC) [address] capsule TAKE ONE CAPSULE BY MOUTH TWICE A DAY BEFORE BREAKFAST AND SUPPER 180 capsule 1 Active aspirin (Aspirin Low Dose) 81 MG EC tabletIndications :Type 2 diabetes mellitus without complication, with long-term current use of insulin ([facility]) Take 1 tablet (81 mg) by mouth in the morning. 90 tablet 3 Active Semaglutide,0.25 or 0.5MG/DOS, (Ozempic, 0.25 or 0.5 MG/DOSE,) 2 MG/3ML solution pen-injectorIndic ations:Type 2 diabetes mellitus without complication, with long-term current use of insulin ([facility]) Inject 0.5 mg under the skin [...] MOUTH THREE TIMES A DAY 90 capsule Active insulin glargine (Toujeo SoloStar) 300 UNIT/ML injectionIndicati ons:Type 2 diabetes mellitus without complication, with long-term current use of insulin ([facility]) Inject 66 Units under the skin in the morning. Increase, as directed, up to a max of 82 units per day. 9 mL 5 Active cetirizine (ZyrTEC) 10 MG tablet Take 1 tablet (10 mg) by mouth Once per day. 30 tablet 025 2025 Active baclofen (Lioresal) 10 MG tablet Take one tablet TID PRN 60 tablet Active butalbital-acetam inophen-caffeine 50-325-40 MG tablet TAKE ONE TABLET BY MOUTH EVERY 4 HOURS NEEDED. MAX 2 TABLETS PER 24 HOURS 20 tablet 1 Active Ketotifen Fumarate 0.035 % solution Administer 1 drop into affected eye(s) if needed in the morning and at bedtime (itching). 10 mL 3 Active rosuvastatin (Crestor) 40 MG tabletIndications :Type 2 diabetes mellitus without complication, with long-term current use of insulin (HCC),Other hyperlipidemia TAKE ONE TABLET BY MOUTH EVERY DAY 90 tablet 1 Active amLODIPine (Norvasc) 5 MG tabletIndications :Primary hypertension TAKE 1.5 TABLETS BY MOUTH ONCE DAILY 135 tablet 3 025 Active amLODIPine (Norvasc) 5 MG tabletIndications :Primary hypertension TAKE 1 & 1/2 TABLETS BY MOUTH EVERY DAY 135 tablet 3 024 2024 Discontinued rosuvastatin (Crestor) 40 MG tabletIndications :Type 2 diabetes mellitus without complication, with long-term current use of insulin (HCC),Other hyperlipidemia Take 1 tablet (40 mg) by mouth Once per day. 90 tablet 1 025 2024 Discontinued oxyCODONE-acetami nophen (Percocet) 5-325 MG tabletIndications :Chronic sacroiliac pain Take 1 tablet by mouth every 12 (twelve) hours if needed for severe pain for up to 28 days. 56 tablet 025 2024 Hospital, Clinic, or Other [...] I also advised to follow-up with her wire setter Plantar fasciitis, bilateral 10/24/2024 Assessment & Plan (10/24/2024 5:50 PM EDT): Patient will be referred to tack cleaner Pharyngitis 06/05/2024 Assessment & Plan (06/05/2024 9:57 [...] Encounters Date Type Department Care Team Description 01/14/2025 Telephone [facility] [address] [place] [address] Angelique Grace, Referral 01/08/2025 Refill [facility] [address] [place] [address] Angelique Grace, Primary hypertension 01/08/2025 Telephone [facility] [address] [place] [address] Angelique Grace DO Chart Prep 01/08/2025 Telephone [facility] [address] [place] [address] Angelique Grace DO 01/06/2025 Refill [facility] [address] [place] [address] Angelique Grace, Type 2 diabetes mellitus without complication, with long-term current use of insulin (HCC); Other hyperlipidemia 01/02/2025 Telephone [facility] [address] [place] [address] Angelique Grace DO Medication Question 01/02/2025 Patient Outreach [facility] [address] [place] [phone] Angelique Grace DO Pre-visit Planning (Pre visit planning LVM ) 01/01/2025 Orders Only [facility] [address] [place] [phone] Angelique Grace DO Type 2 diabetes mellitus without complication, with long-term current use of insulin (HCC) (Primary Dx) 12/21/2024 Telephone [facility] [address] [place] [phone] Angelique Grace DO Referral 12/18/2024 1:45 PM EDT Office Visit [facility] [address] [place] [address] Sourav, Viv, OD Presbyopia (Primary Dx) 12/17/2024 Telephone [facility] [address] [place] [address] Angelique Grace DO 12/11/2024 Telephone [facility] [address] [place] [phone] Angelique Grace DO Referral 12/11/2024 Refill [facility] [address] [place] [phone] Angelique Grace DO 12/04/2024 6:40 PM EDT Office Visit [facility] [address] [place] [address] Palma Felix FNP Non-cardiac chest pain (Primary Dx) 12/04/2024 Travel 11/29/2024 Telephone [facility] [address] [place] [address] Angelique Grace DO 11/16/2024 Refill [facility] [address] [place] [address] Angelique Grace DO Chronic sacroiliac pain (Primary Dx) 11/07/2024 Travel 10/29/2024 Refill [facility] [address] [place] [address] Angelique Grace DO Neuropathy; Type 2 diabetes mellitus without complication, with long-term current use of insulin (CMS/HCC); Other hyperlipidemia 10/25/2024 Orders Only GENERIC EXTERNAL DATA DEPARTMENT Provider, Generic External Data 10/24/2024 5:20 PM EDT Office Visit [facility] [address] [place] [address] Shea Balderas MD Hypersomnia (Primary Dx); Other fatigue; Lower extremity edema; Plantar fasciitis, bilateral 10/24/2024 Travel 10/23/2024 Telephone [facility] [address] [place] [address] Angelique Grace DO Nurse Triage 10/22/2024 1:45 PM EDT Office Visit [facility] [address] [place] [address] Agueda Meyer, OD Type 2 diabetes mellitus [...] tetanus tox oid, preservative free, adsorbed 01/16/1998 Td, Adsorbed, Preservative F ree, Adult Use, Lf Unspecified 01/16/1998 Tdap 11/20/2022,03/01/2013 Zoster, Recombinant 06/25/2021,04/20/2021 Family [...] Description 01/28/2025 2:45 PM EST Office Visit [facility] [address] [place] [address] Nannette Daigle, STAGE MANAGER [address] [place] [address] 01/31/2025 11:30 AM EST Medication Management [facility] [address] [place] [address] Yu Busby, PharmD [address] [place], [place] [phone] Health Maintenance Due Date Last Done Comments [...] Additional history exists Lipid Panel 08/30/2025 08/30/2024, 042 05/2024, 05/08/2024, Additional history exists Eye Exam 10/22/2025 [...] complication, with long-term current use of insulin ([facility]) HEMATOXYLIN AND EOSIN STAIN Routine 10/25/2024 11:28 [...] - 12/04/2024 7:38 PM EDT Sinus rhythm P/OK: 108/144 ms QRS: 112 ms QT/Qtc: 404/460 ms P/QRS/T axis: 33/16/24 deg Heart rate: 78 bpm Palma Felix STAGE MANAGER ECG ORDERABLES Final Result * (ABNORMAL) POCT HGB A1C (11/07/2024 2:43 PM EDT) Hemoglobin A1C 9.1(A) 4.0 - 5.7 % Blood 11/07/2024 2:43 PM EDT Angelique Grace DO POINT OF CARE TEST ENTER/ARETHA T ORDERABLES Final Result * Hematoxylin and Eosin Stain (10/25/2024 11:28 AM EDT) 10/25/2024 11:2 8 AM EDT 10/25/2024 11:49 AM EDT Narrative [facility] - 10/26/2024 5:26 PM EDT ----- ------- Name: Maria C Lewis Age/Sex: 54/F : 1970 [id number] Unit#: [id number] Attend Dr: Nirmala Noriega MD Re10/25/24 Status: [facility] Location: [facility] Disch: ----- ------- SPEC : [id number] RECD: 10/25/24 STATUS: BRYANT DESAI NUM: [id number] JOVANA: 10/25/[address] [facility] [address]: Nirmala Noriega MD ENTERED: 10/25/24 SP TYPE: Surgical OTHR DR: Angelique Grace DO ORDERED: HE Stain/9, Gross Micro L4/3, IHC, Special st. 2/, H. pylori, AB/PAS/3 Diagnosis A. Stomach, random, [...] CONTINUED ON NEXT PAGE ----- ------- Name: Maria C Lewis Age/Sex: 54/F : 1970 Unit#: [id number] Attend Dr: Nirmala Noriega MD Re10/25/24 Status: [facility] Location: [facility] Disch: ----- ------- SPEC : [id number] RECD: 10/25/24114 STATUS: BRYANT Ifrah NUM: [id number] JOVANA: 10/25/[address] [facility] [address]: Nirmala Noriega MD ENTERED: 10/25/24115 SP TYPE: Surgical OTHR DR: Angelique Grace [...] developed and their performance characteristics determined by [facility]. They have not been cleared or approved by the U.S. Food and Drug Administration (FDA). However, the FDA has determined that such clearance or approval is not necessary. This laboratory is certified under the Clinical Laboratory Improvement Amendments of 1988 (CLIA) as qualified to perform high complexity clinical laboratory testing. Copies To: Angelique Grace DO [address] [address] Nirmala Noriega MD [facility] [address] [place] [phone] [email or web address] ------- Signed (signature on file) Reanna Gray MD 10/26/24 1726 ----- ------- END OF REPORT Generic External Data Provider LAB BLOOD ORDERAB LES Final Result Performing Organization Address [facility]/ZIP Co de Phone Number [facility] [address] [place] [address] [phone] * (ABNORMAL) Glucose, Whole Blood (10/25/2024 10:08 AM EDT) Glucose, Whole Blood 200(H) 60 - 115 mg/dL [facility] Comment:METER #: [id number] 10/25/2024 10:0 8 AM EDT 10/25/2024 10:11 AM EDT Generic External Data Provider LAB BLOOD ORDERAB LES Final Result Performing Organization Address [facility] Co de Phone Number [facility] [address] [place] [phone] [phone] * Lipid Panel, Standard (08/30/2024 2:34 PM EDT) Pathologist [facility] Triglycerides 148 <150 mg/dL [facility] Comment:Desirable Triglyceri de: less than 150 mg/dLBorderline High Triglyceride 150-199 mg/dLHigh Triglyceride: 200-499 mg/dLVery High Triglyceride: greater than or equal to 5OO mg/dL Cholesterol 140 <200 mg/dL [facility] Comment:Desirable Cholestero l: less than 200 mg/dLBorderline High Cholesterol: 200-239 mg/dLHigh Cholesterol: greater than 239 mg/dL LDL Cholesterol Calculated 56 <100 mg/dL [facility] Comment:Desirable LDL: less than 100 mg/dLNear Optimal/Above Optimal LDL: 110- 129 mg/dLBorderline High LDL: 130-159 mg/dLHigh LDL: 160-189 mg/dLVery High LDL: greater than or equal to 190 mg/dL HDL Cholesterol 55 >40 mg/dL [facility] Comment:Desirable HDL: great er than 40 mg/dL Note: This HDL assay may give artificially low results in patients with liver disease. 08/30/2024 2:34 PM EDT 08/30/2024 2:34 PM EDT us Angelique Grace DO LAB BLOOD ORDERABLES Final R esult [facility] [address] [place] [phone] * Albumin, Random Urine W/Creatinine (08/30/2024 2:30 PM EDT) Creatinine, Urine 166.93 mg/dL [facility] Microalbumin Urine 46.0 mg/L [facility] Microalbum Creatinine Ratio Ur 27.5 <30 ug/mg cr [facility] Comment:Albumin/Creatinine R atio Reference Ranges: Normal: < 30 ug/mg creatinine Microalbuminuria: 30 - 300 ug/mg creatinineClinical Albuminuria: > 300 ug/mg creatinine Urine (Urine, Random) 08/30/2024 2:30 PM EDT 08/30/2024 3:13 PM EDT us Angelique Grace LAB URINE ORDERABLES Final R esult Performing Organization Address City/[facility]/ZIP Co de Phone Number [facility] [address] [place] [phone] * Hepatitis C Antibody with Reflex to HCV, RNA, Quantitative, Real-Time PCR (07/04/2024 12:07 PM EDT) Hepatitis C Antibody Nonreactive Nonreactive [facility] Comment:Antibodies to HCV no t detected; does not exclude early acuteHCV infection. Blood Venous blood specimen / Unknown 07/04/2024 12:07 PM EDT 07/04/2024 1:08 PM EDT Angelique Grace LAB BLOOD ORDERABLES Final R [facility] Performing Organization Address [facility] Co de Phone Number [facility] [address] [place] [phone] * HIV-1/2 Antigen and Antibodies, Fourth Generation, with Reflexes (07/04/2024 12:07 PM EDT) HIV AB/AG Nonreactive Nonreactive [facility] Comment:HIV-1 p24 Ag and/or HIV-1/HIV-2 Ab not detected.A test result that is nonreactive does not exclude thepossibility of exposure to or infection with HIV-1 and/orHIV-2. Nonreactive results in this assay for individualswith prior exposure to HIV-1 and/or HIV-2 may be due toantigen and antibody levels that are below the limit ofdetection of this assay.The [employer] HIV Ag/Ab Combo assay result andsupplemental assay results should be interpreted inconjunction with the patient's clinical presentation,history and other laboratory results. If the results areinconsistent with clinical evidence, additional testing issuggested to confirm the result. Blood Venous blood specimen / Unknown 07/04/2024 12:07 PM EDT 07/04/2024 1:08 PM EDT us Angelique Grace DO LAB BLOOD ORDERABLES Final R esult [facility] [address] [place] [phone] * BI Mammogram Screening Tomosynthesis Bilateral (03/21/2024 2:15 PM EST) Anatomical Region Laterality Modality Breast Bilateral Mammography 03/21/2024 2:15 PM EST Narrative 03/28/2024 9:29 AM EST [address] [place] [address] Mammography Report Signed Patient: Maria C Lewis MR#: [id number] : 1970 Acct:[id number] Age/Sex: 53 / F ADM Date: 03/21/24 Loc: HO.MAMMO Attending Dr: Angelique Grace DO Ordering Physician: Angelique Grace DO Results: 1N egative Date of Service: 03/21/24 Follow Up: 1 Year From Orig inal Mammogram Procedure(s): MM tomosynthesis screening BI Accession Number(s): [id number] cc: Angelique Grace DO EXAMINATION: MM SCREENING [...] Velia Sorensen DO 03/28/2024 09:26 AM EST RP Dictated By: Velia Sorensen DO Signed By: <Electronically signed by Velia Sorensen DO in OV> 03/28/2426 DD/ 1415 TD/TT: 03/21/24 1442 Senior Benefits Manager: Procedure Note Donotuseinterpreter, Image - 03/28/2024 Cristiane [facility] [address] [place] [address] Mammography Report Signed Patient: Maria C LeiwsMR#: [id number] : 1970Acct:[id number] Age/Sex: 53 / FADM Date: 03/21/24 Loc: HO.MAMMO Attending Dr: Angelique Grace DO Ordering Physician: Angelique Graceults: 1N egative Date of Service: 03/21/24Follow Up: 1 Year From Orig ina Mammogram Procedure(s): MM tomosynthesis screening BI Accession Number(s): [id number] cc: Angelique Grace DO EXAMINATION: MM SCREENING [...] Velia Sorensen DO 03/28/2024 09:26 AM EST RP Dictated By: Velia Sorensen DO Signed By: <Electronically signed by Velia Sorensen DO in OV> 03/28/24 0926 DD/ 1415 TD/TT: 03/21/24 1442 Senior Benefits Manager: Angelique Grace DO IMG BI PROCEDURES Final Resu lt * Hm Pap Smear (04/02/2022) Pap Negative for intraephithelial lesion or malignancy Negative for intraephithelial lesion or malignancy, Other HPV Undetected Undetected, Indeterminate, Quantitative, Not Detected Historical Provider MD HEALTH MAINTENANCE Final Result from Last 3 Months or Most Recently Relevant to Health Maintenance [place] [address] [place] [address] C3 Care Teams Assistant Football Coach Relationship Specialty Start Date End Date Angelique Grace DO [address] [place] [address] PCP - General Family Medicine 03/14/18 Yu Busby, ChristieD [address] [place] [address] Pharmacist Internal Medicine 11/03/22
--- OUTSIDE RECORDS SUMMARY | 2025-01-15 17:56 | XMS_ITS | Encounter Summary ---
Author Organization [employer] Address 75 [facility] 7t [place] [address] Care Team Providers Care Liquid Yeast Supervisor Name Role Phone Angelique Grace DO Primary Care Provider [phone] Yu Busby PharmD Unavailable [phone] Encounter Details Date Type Department Care Team (Late st Contact Info) Description 11/29/2024 Telephone [facility] [address] [place] [address] Angelique Grace DO [address] [place] [address] Social History Tobacco Use Types Packs/Day Years [...] Description 01/28/2025 2:45 PM EST Office Visit [facility] [address] [place] [phone] Nannette Daigle FNP [address] [place] [address] 01/31/2025 11:30 AM EST Medication Management [address] [address] Yu Busby, PharmD [address] [place] [address] documented as of this encounter Goals Goal [...] documented as of this encounter Care Teams Liquid Yeast Supervisor Relationship Specialty Start Date End Date Angelique Grace DO [address] [place] [address] PCP - General Family Medicine 03/14/18 Yu Busby, Radha [address] [place] [address] Pharmacist Internal Medicine 11/03/22 documented as of this encounter
--- OUTSIDE RECORDS SUMMARY | 2025-01-15 17:56 | XMS_ITS | Encounter Summary ---
Author Organization [employer] Address 75 [facility] 7t [place] [address] Care Team Providers Care In House Counsel Name Role Phone Angelique Grace DO Primary Care Provider [phone] Yu Busby PharmD Unavailable [phone] Reason for Visit * Reason Onset Date Comments Med Refill 01/07/2023 Encounter Details Date Type Department Care Team ([facility] st Contact Info) Description 01/07/2023 Telephone [facility] [address] [place] [address] Angelique Grace DO [address] [place] [address] Med Refill Social History Tobacco Use Types [...] capsule to be sent to [facility] documented in this encounter Plan of Treatment Upcoming Encounters Date Type Department Care Team (Late st Contact Info) Description 01/28/2025 2:45 PM EST Office Visit [facility] [address] [place] [address] [phone] Nannette Daigle FNP [address] [place] [address] 01/31/2025 11:30 AM EST Medication Management [facility] [address] [place] [phone] Yu Busby, PharmD [address] [place] [address] documented as of this encounter Goals Goal [...] documented as of this encounter Care Teams In House Counsel Relationship Specialty Start Date End Date Angelique Grace DO [address] [place] [address] PCP - General Family Medicine 03/14/18 Yu Busby PharmD [address] [place] [address] Pharmacist Internal Medicine 11/03/22 documented as of this encounter
--- OUTSIDE RECORDS SUMMARY | 2025-01-15 17:56 | XMS_ITS | Encounter Summary ---
Author Organization [employer] Address 75 [facility] 7t [place] [address] Care Team Providers Care Asset Management Lead Name Role Phone Angelique Grace DO Primary Care Provider [phone] Yu Busby PharmD Unavailable [phone] Reason for Visit * Reason Onset Date Comments Nurse Triage 01/12/2024 Encounter Details Date Type Department Care Team (Late st Contact Info) Description 01/12/2024 Telephone [facility] [address] [place] [address] Angelique Grace DO [address] [place] [address] Nurse Triage Social History Tobacco Use Types [...] 01/12/2024 11:28 AM EDT Called pt. Via Telepo. Pt. States that she is having numbness in both hands when she sleeps at night and when she uses her tablet. Pt. States she called to make an appt. With [facility] [address] [place] [address] -Fax number [phone] or [phone] DX. Arthralgias but, they told her that [...] Description 01/28/2025 2:45 PM EST Office Visit [facility] [address] [place] [address] Nannette Daigle FNP [address] [place], [place] [phone] 01/31/2025 11:30 AM EST Medication Management [facility] [address] [place], [place] [phone] PuiaYu, PharmD [address] [place], [place] [phone] documented as of this encounter Goals Goal [...] documented as of this encounter Care Teams Asset Management Lead Relationship Specialty Start Date End Date Angelique Grace DO [address] [place] [address] [phone] PCP - General Family Medicine 03/14/18 Puia, Yu, PharmD [address] [place] [address] [phone] Pharmacist Internal Medicine 11/03/22 documented as of this encounter
--- OUTSIDE RECORDS SUMMARY | 2025-01-15 17:56 | XMS_ITS | Encounter Summary ---
Author Organization [employer] Address 75 [facility] 7t [place] [address] Care Team Providers Care Well Service Derrick Worker Name Role Phone Angelique Grace DO Primary Care Provider [phone] Yu Busby PharmD Unavailable [phone] Reason for Visit * Reason Comments Med Refill Encounter Details Date Type Department Care Team ([facility] st Contact Info) Description 01/05/2023 Refill [facility] MED[facility]INE [address] [place] [address] Shea Balderas MD [address] [place] [address] Social History Tobacco Use Types Packs/Day Years [...] Description 01/28/2025 2:45 PM EST Office Visit [facility] [address] [place] [phone] Nannette Daigle FNP [address] [place] [phone] 01/31/2025 11:30 AM EST Medication Management [address] [address] PuiaYu, PharmD [address] [place] [phone] documented as of this encounter Goals Goal [...] documented as of this encounter Care Teams Well Service Derrick Worker Relationship Specialty Start Date End Date Angelique Grace DO [address] [place] [phone] PCP - General Family Medicine 03/14/18 Puia, Yu, PharmD [address] [place] [phone] Pharmacist Internal Medicine 11/03/22 documented as of this encounter
--- OUTSIDE RECORDS SUMMARY | 2025-01-15 17:56 | XMS_ITS | Encounter Summary ---
Author Organization [employer] Address 75 [facility] 7t [place] [address] Care Team Providers Care Reinspector Name Role Phone Angelique Grace DO Primary Care Provider +1- [phone] Yu Busby PharmD Unavailable [phone] Reason for Visit * Reason Onset Date Comments Med Refill 06/26/2024 Encounter Details Date Type Department Care Team (Late st Contact Info) Description 06/26/2024 Telephone [facility] [address] [place] [address] Angelique Grace DO 230 [place], [place] [phone] Med Refill Social History Tobacco Use Types [...] tablet To be sent to: [facility] [address] documented in this encounter Plan of Treatment Upcoming Encounters Date Type Department Care Team (Late st Contact Info) Description 01/28/2025 2:45 PM EST Office Visit [facility] [address] [place] [address] Nannette Daigle FNP 230 [place] [address] 01/31/2025 11:30 AM EST Medication Management [facility] [address] [place] [address] Yu Busby, PharmD 230 [place] [address] documented as of this encounter Goals Goal [...] documented as of this encounter Care Teams Reinspector Relationship Specialty Start Date End Date Angelique Grace DO 230 [place] [address] PCP - General Family Medicine 03/14/18 Yu Busby PharmD 230 [place] [address] Pharmacist Internal Medicine 11/03/22 documented as of this encounter
--- OUTSIDE RECORDS SUMMARY | 2025-01-15 17:56 | XMS_ITS | Encounter Summary ---
Author Organization [employer] Address 75 [facility] 7t [place] [address] Care Team Providers Care Cyber Threat Analyst Name Role Phone Angelique Grace DO Primary Care Provider +1- [phone] Yu Busby PharmD Unavailable [phone] Reason for Visit * Reason Onset Date Comments Medication Question 05/14/2024 Encounter Details Date Type Department Care Team ([facility] st Contact Info) Description 05/14/2024 Telephone [facility] 230 [place] [address] Angelique Grace DO 230 [place] [address] Medication Question Social History Tobacco Use Types [...] to Discuss her medication. Contact pt at [phone] documented in this encounter Plan of Treatment Upcoming Encounters Date Type Department Care Team (Late st Contact Info) Description 01/28/2025 2:45 PM EST Office Visit [facility] [address] [place] [address] Nannette Daigle FNP 230 [place] [address] 01/31/2025 11:30 AM EST Medication Management [facility] [address] [place] [address] Yu Busby PharmD 230 [place] [address] documented as of this encounter Goals Goal [...] documented as of this encounter Care Teams Cyber Threat Analyst Relationship Specialty Start Date End Date Angelique Grace DO 230 [place] [address] PCP - General Family Medicine 03/14/18 Yu Busby PharmD 230 [place] [address] Pharmacist Internal Medicine 11/03/22 documented as of this encounter
--- OUTSIDE RECORDS SUMMARY | 2025-01-15 17:56 | XMS_ITS | Encounter Summary ---
Author Organization [employer] Address 75 [facility] 7t [place] [address] Care Team Providers Care Package Drier Name Role Phone Angelique Grace DO Primary Care Provider +1- [phone] Yu Busby PharmD Unavailable [phone] Reason for Visit * Reason Onset Date Comments callback requested 01/27/2024 Encounter Details Date Type Department Care Team ([facility] st Contact Info) Description 01/27/2024 Telephone [facility] 230 [place] [address] Angelique Grace DO 230 [place] [address] callback requested Social History Tobacco Use Types [...] has to payout of pocket , Callback [phone] documented in this encounter Plan of Treatment Upcoming Encounters Date Type Department Care Team (Late st Contact Info) Description 01/28/2025 2:45 PM EST Office Visit [facility] [address] [place] [address] Nannette Daigle FNP 230 [place] [address] 01/31/2025 11:30 AM EST Medication Management [facility] [address] [place] [address] Yu Busby PharmD [address] [place] [address] documented as of this encounter Goals Goal [...] documented as of this encounter Care Teams Package Drier Relationship Specialty Start Date End Date Angelique Grace DO 230 [place] [address] PCP - General Family Medicine 03/14/18 Yu Busby PharmD 230 [place] [address] Pharmacist Internal Medicine 11/03/22 documented as of this encounter
--- OUTSIDE RECORDS SUMMARY | 2025-01-15 17:57 | XMS_ITS | Encounter Summary ---
Author Organization [employer] Address 75 [facility] 7t [place] [address] Care Team Providers Care Lug Loader Name Role Phone Angelique Grace DO Primary Care Provider +1- [phone] Yu Busby PharmD Unavailable [phone] Encounter Details Date Type Department Care Team (Late st Contact Info) Description 08/10/2023 Telephone [facility] MEDICINE 230 [place] [address] Angelique Grace DO 230 [place] [address] Social History Tobacco Use Types Packs/Day Years [...] Description 01/28/2025 2:45 PM EST Office Visit [facility] MEDICINE [address] [place] [address] Nannette Daigle FNP [address] [place] [address] 01/31/2025 11:30 AM EST Medication Management [address] [address] Yu Busby, PharmD [address] [place] [address] documented as of this encounter Goals Goal [...] documented as of this encounter Care Teams Lug Loader Relationship Specialty Start Date End Date Angelique Grace DO [address] [place] [address] PCP - General Family Medicine 03/14/18 PuiaDarrynYu, PharmD [address] [place] [address] Pharmacist Internal Medicine 11/03/22 documented as of this encounter
--- OUTSIDE RECORDS SUMMARY | 2025-01-15 17:57 | XMS_ITS | Encounter Summary ---
Author Organization [employer] Address 75 [facility] 7t [place] [address] Care Team Providers Care Toll Line Inspector Name Role Phone Angelique Grace DO Primary Care Provider +1- [phone] Yu Busby PharmD Unavailable [phone] Reason for Visit * Reason Onset Date Comments Nurse Triage 09/08/2023 Encounter Details Date Type Department Care Team ([facility] st Contact Info) Description 09/08/2023 Telephone [facility] 230 [place] [address] Angelique Grace DO 230 [place] [address] Nurse Triage Social History Tobacco Use Types [...] accepted this outcome Please contact pt at [phone] (director on air) documented in this encounter Plan of Treatment Upcoming Encounters Date Type Department Care Team (Late st Contact Info) Description 01/28/2025 2:45 PM EST Office Visit [facility] [address] [place] [address] Nannette Daigle FNP 230 [place] [address] 01/31/2025 11:30 AM EST Medication Management [address] [address] Yu Busby, PharmD [address] [place] [address] documented as of this encounter Goals Goal [...] documented as of this encounter Care Teams Toll Line Inspector Relationship Specialty Start Date End Date Angelique Grace DO 230 [place] [address] PCP - General Family Medicine 03/14/18 Yu Busby PharmD 230 [place] [address] Pharmacist Internal Medicine 11/03/22 documented as of this encounter
--- OUTSIDE RECORDS SUMMARY | 2025-01-15 17:57 | XMS_ITS | Encounter Summary ---
Author Organization [employer] Address 75 [facility] 7t [place] [address] Care Team Providers Care Academic Manager Name Role Phone CalebAngelique espinoza Primary Care Provider DelCastillo clements PharmD Unavailable Unavail able Yu Busby PharmD Unavailable Encounter Details Date Type Department Care Team (Late st Contact Info) Description 03/02/2022 Orders Only [facility] [address] [place] [address] Angelique Soler LPN Social History Tobacco Use [...] Description 01/28/2025 2:45 PM EST Office Visit [facility] MEDICINE [address] [place] [address] Nannette Daigle FNP [address] [place] [address] 01/31/2025 11:30 AM EST Medication Management [facility] [address] [place] [address] PuiaDarrynYu, PharmD 230 [place] [address] documented as of this encounter Visit Diagnoses Not on filedocumented in this encounter Care Teams Academic Manager Relationship Specialty Start Date End Date Angelique Grace DO [address] [place] [address] PCP - General Family Medicine 03/14/18 Castillo Pradhan, ChristieD [address] [place] [address] Pharmacist Internal Medicine 07/22/22 11/02/22 Yu Busby PharmD [address] [place] [address] Pharmacist Internal Medicine 11/03/22 documented as of this encounter
--- OUTSIDE RECORDS SUMMARY | 2025-01-15 17:57 | XMS_ITS | Encounter Summary ---
Author Organization [employer] Address [address] [place] [address] 7t [place] [address] Care Team Providers Care Workforce Consultant Name Role Phone Angelique Grace DO Primary Care Provider DelCastillo clements PharmD Unavailable Unavail able Yu Busby PharmD Unavailable [phone] Encounter Details Date Type Department Care Team (Late st Contact Info) Description 02/23/2022 [facility] Only [facility] 230 [place] [address] Angelique Grace DO 230 [place] [address] Social History Tobacco Use Types Packs/Day Years [...] PM EST Office Visit [facility] [address] [place] [address] Nannette Daigle FNP 230 [place] [address] 01/31/2025 11:30 AM EST Medication Management [facility] [address] [place] [address] PuiaDarrynYu, PharmD 230 [place] [address] documented as of this encounter Visit Diagnoses Not on filedocumented in this encounter Care Teams Workforce Consultant Relationship Specialty Start Date End Date Angelique Grace DO [address] [place] [address] PCP - General Family Medicine 03/14/18 Castillo Pradhan, ChristieD [address] [place] [address] Pharmacist Internal Medicine 07/22/22 11/02/22 Yu Busby PharmD [address] [place] [address] Pharmacist Internal Medicine 11/03/22 documented as of this encounter
--- OUTSIDE RECORDS SUMMARY | 2025-01-15 17:57 | XMS_ITS | Encounter Summary ---
Author Organization [employer] Address 75 [facility] 7t [place] [address] Care Team Providers Care Director Of Quality Improvement Name Role Phone Angelique Grace DO Primary Care Provider +1- [phone] Yu Busby PharmD Unavailable [phone] Encounter Details Date Type Department Care Team (Late st Contact Info) Description 2023 Abstract [facility]INE 230 [place] [address] Angelique Grace DO 230 [place] [address] Social History Tobacco Use Types Packs/Day Years [...] Description 01/28/2025 2:45 PM EST Office Visit [facility] [address] [place] [address] Nannette Daigle FNP [address] [place] [address] 01/31/2025 11:30 AM EST Medication Management [address] [address] Yu Busby, PharmD [address] [place] [address] documented as of this encounter Goals Goal [...] of this encounter Care Teams Director Of Quality Improvement Relationship Specialty Start Date End Date Angelique Grace DO [address] [place] [address] PCP - General Family Medicine 03/14/18 PuiaDarrynYu, PharmD [address] [place] [address] Pharmacist Internal Medicine 11/03/22 documented as of this encounter
--- OUTSIDE RECORDS SUMMARY | 2025-01-15 17:57 | XMS_ITS | Encounter Summary ---
Author Organization [employer] Address 75 [facility] 7t [place] [address] Care Team Providers Care Epilepsy Physician Name Role Phone Angelique Grace DO Primary Care Provider +1- [phone] Yu Busby PharmD Unavailable [phone] Reason for Visit * Reason Onset Date Comments Referral 07/19/2023 Encounter Details Date Type Department Care Team ([facility] st Contact Info) Description 07/19/2023 Telephone [facility] MEDICINE 230 [place] [address] Angelique Grace DO 230 [place] [address] Referral Social History Tobacco Use Types Packs/Day [...] for plastic surgery. Please contact pt at [phone]. documented in this encounter Plan of Treatment Upcoming Encounters Date Type Department Care Team (Late st Contact Info) Description 01/28/2025 2:45 PM EST Office Visit [facility] MEDICINE [address] [place] [address] Nannette Daigle FNP [address] [place] [address] 01/31/2025 11:30 AM EST Medication Management [facility] MEDICINE [address] [place] [address] Yu Busby, PharmD [address] [place] [address] documented as of this encounter Goals Goal [...] documented as of this encounter Care Teams Epilepsy Physician Relationship Specialty Start Date End Date Angelique Grace DO 230 [place] [address] PCP - General Family Medicine 03/14/18 Yu Busby PharmD 230 [place] [address] Pharmacist Internal Medicine 11/03/22 documented as of this encounter
--- OUTSIDE RECORDS SUMMARY | 2025-01-15 17:57 | XMS_ITS | Encounter Summary ---
Author Organization [employer] Address 75 [facility] 7t [place] [address] Care Team Providers Care Produce Inspector Name Role Phone Angelique Grace DO Primary Care Provider +1- [phone] Yu Busby PharmD Unavailable [phone] Reason for Visit * Reason Comments Med Refill Encounter Details Date Type Department Care Team ([facility] st Contact Info) Description 07/09/2023 Refill [facility] MEDICINE 230 [place] [address] Angelique Grace DO 230 [place] [address] Type 2 diabetes mellitus without complication, with long-term current use of insulin ([facility]) Social History Tobacco Use Types Packs/Day [...] Description 01/28/2025 2:45 PM EST Office Visit [facility] MEDICINE [address] [place] [address] Nannette Daigle FNP [address] [place] [address] 01/31/2025 11:30 AM EST Medication Management [facility] MEDICINE [address] [place] [address] Yu Busby, PharmD [address] [place] [address] documented as of this encounter Goals Goal [...] documented as of this encounter Care Teams Produce Inspector Relationship Specialty Start Date End Date Angelique Grace DO [address] [place] [address] PCP - General Family Medicine 03/14/18 Yu Busby, Radha [address] [place] [phone] Pharmacist Internal Medicine 11/03/22 documented as of this encounter
--- OUTSIDE RECORDS SUMMARY | 2025-01-15 17:57 | XMS_ITS | Encounter Summary ---
Author Organization [employer] Address 75 [facility] 7t [place] [address] Care Team Providers Care Long Term Name Role Phone Angelique Grace DO Primary Care Provider +1- [phone] DelCastillo clements PharmD Unavailable Unavail able Yu Busby PharmD Unavailable [phone] Reason for Visit * Reason Comments Med Refill Encounter Details Date Type Department Care Team (Late st Contact Info) Description 05/21/2022 Refill [facility] MEDICINE 230 [place] [address] Brent Garvin FNP Degeneration of lumbar intervertebral [...] Description 01/28/2025 2:45 PM EST Office Visit [address] [address] Nannette Daigle FNP 230 [place] [address] 01/31/2025 11:30 AM EST Medication Management [address] [address] Yu Busby PharmD [address] [place] [address] documented as of this encounter Visit Diagnoses Diagnosis Degeneration of lumbar intervertebral disc Degeneration of lumbar or lumbosacral intervertebral disc documented in this encounter Care Teams Long Term Relationship Specialty Start Date End Date Angelique Grace DO [address] [place] [address] PCP - General Family Medicine 03/14/18 Castillo Pradhan, ChristieD [address] [place] [address] Pharmacist Internal Medicine 07/22/22 11/02/22 Yu Busby PharmD [address] [place] [address] Pharmacist Internal Medicine 11/03/22 documented as of this encounter
--- OUTSIDE RECORDS SUMMARY | 2025-01-15 17:57 | XMS_ITS | Encounter Summary ---
Author Organization [employer] Address 75 [facility] 7t [place] [address] Care Team Providers Care Potash Flaker Name Role Phone Angelique Grace DO Primary Care Provider +1- [phone] Yu Busyb PharmD Unavailable [phone] Reason for Visit * Reason Comments Med Refill Encounter Details Date Type Department Care Team ([facility] st Contact Info) Description 06/01/2023 Refill [facility] MEDICINE 230 [place] [address] Yulisa Cedillo MD 230 [place], [place] [phone] Primary hypertension Social History Tobacco Use Types [...] Description 01/28/2025 2:45 PM EST Office Visit [address] [address] Nannette Daigle FNP 230 [place] [address] 01/31/2025 11:30 AM EST Medication Management [address] [address] PuiaYu, PharmD [address] [place] [address] documented as of this encounter Goals Goal [...] documented as of this encounter Care Teams Potash Flaker Relationship Specialty Start Date End Date Angelique Grace DO [address] [place] [address] PCP - General Family Medicine 03/14/18 Puia, Yu, PharmD [address] [place] [address] Pharmacist Internal Medicine 11/03/22 documented as of this encounter
--- OUTSIDE RECORDS SUMMARY | 2025-01-15 17:57 | XMS_ITS | Encounter Summary ---
Author Organization [employer] Address 75 [facility] 7t [place] [address] Care Team Providers Care Roller Setter Name Role Phone Angelique Grace DO Primary Care Provider [phone] Yu Busby PharmD Unavailable [phone] Reason for Visit * Reason Onset Date Comments Accomodation Letter 08/23/2023 Encounter Details Date Type Department Care Team ([facility] st Contact Info) Description 08/23/2023 Telephone [facility] MEDICINE 230 [place] [address] Angelique Grace DO 230 [place] [address] Accomodation Letter Social History Tobacco Use Types [...] Pt was transferred from Him in which freelance copywriter contact HIM for clarification. They informed freelance copywriter pt was advised to leave message with providers team. If any questions please contact pt at [phone]. documented in this encounter Plan of Treatment Upcoming Encounters Date Type Department Care Team (Late st Contact Info) Description 01/28/2025 2:45 PM EST Office Visit [address] [address] Nannette Daigle FNP [address] [place] [address] 01/31/2025 11:30 AM EST Medication Management [address] [address] Puia, Yu, PharmD [address] [place] [address] documented as of this encounter Goals Goal Patient Goal Type Associated Problems Recent Progress Patient-Stated? Author Smoking cessation General No Puia, Yu, PharmD Hemoglobin A1c < 7 Result Component 9.1( 2:43 PM EDT) No FelicianologCastillo toledo, PharmD Record your blood sugar as directed Result Component No Puia, Yu, PharmD documented as of this encounter Visit Diagnoses Not on filedocumented in this encounter Additional Health Concerns Assessment Noted Time PHQ-9 Depression Total Score: 0 06/09/19 23 11:27 AM EDT documented as of this encounter Care Teams Roller Setter Relationship Specialty Start Date End Date Angelique Grace DO [address] [place] [address] PCP - General Family Medicine 03/14/18 Puia, Yu, PharmD [address] [place] [address] Pharmacist Internal Medicine 11/03/22 documented as of this encounter
--- OUTSIDE RECORDS SUMMARY | 2025-01-15 17:57 | XMS_ITS | Encounter Summary ---
Author Organization [employer] Address 75 [facility] 7t [place] [address] Care Team Providers Care Blanket Cutter Hand Name Role Phone CalebAngelique espinoza Primary Care Provider +1- [phone] Yu Busby PharmD Unavailable [phone] Encounter Details Date Type Department Care Team (Late st Contact Info) Description 05/12/2023 Orders Only [facility] [address] [place] [address] ProviderKhadar MD Social History Tobacco Use Types [...] 2:45 PM EST Office Visit [facility] MEDICINE [address] [place] [address] Nannette Daigle FNP 230 [place] [address] 01/31/2025 11:30 AM EST Medication Management [address] [address] PuiaYu, PharmD [address] [place] [address] documented as of this encounter Goals Goal Patient Goal Type Associated Problems Recent Progress Patient-Stated? Author Smoking cessation General No Yu Busby, PharmD Hemoglobin A1c < 7 Result Component 9.1( 2:43 PM EDT) No Castillo Pradhan, PharmD Record your blood sugar as directed Result Component No Yu Busby, PharmD documented as of this encounter Procedures [...] documented as of this encounter Care Teams Blanket Cutter Hand Relationship Specialty Start Date End Date Angelique Grace DO [address] [place] [address] PCP - General Family Medicine 03/14/18 Yu Busby, Radha 230 [place] [address] Pharmacist Internal Medicine 11/03/22 documented as of this encounter
--- OUTSIDE RECORDS SUMMARY | 2025-01-15 17:57 | XMS_ITS | Encounter Summary ---
Author Organization [employer] Address 75 [facility] 7t [place] [address] Care Team Providers Care Dip Painter Name Role Phone Angelique Grace DO Primary Care Provider +1- [phone] Yu Busby PharmD Unavailable [phone] Reason for Visit * Reason Onset Date Comments Durable Medical Equipment 03/03/2023 Encounter Details Date Type Department Care Team ([facility] st Contact Info) Description 03/03/2023 Telephone [facility] 230 [place] [address] Angelique Grace DO [address] [place] [address] Durable Medical Equipment Social History Tobacco Use [...] Cane Electric Patches Please contact pt @ [phone] documented in this encounter Plan of Treatment Upcoming Encounters Date Type Department Care Team (Late st Contact Info) Description 01/28/2025 2:45 PM EST Office Visit [facility] [address] [place] [address] Nannette Daigle FNP 230 [place] [address] 01/31/2025 11:30 AM EST Medication Management [facility] [address] [place] [address] Yu Busby, ChristieD [address] [place] [address] documented as of this encounter Goals Goal [...] documented as of this encounter Care Teams Dip Painter Relationship Specialty Start Date End Date Angelique Grace DO 230 [place] [address] PCP - General Family Medicine 03/14/18 Yu Busby PharmD [address] [place] [address] Pharmacist Internal Medicine 11/03/22 documented as of this encounter
--- OUTSIDE RECORDS SUMMARY | 2025-01-15 17:57 | XMS_ITS | Encounter Summary ---
Author Organization [employer] Address [address] [facility] 7t [place] [address] Care Team Providers Care Insole Coverer Name Role Phone Angelique Grace DO Primary Care Provider [phone] Yu Busby PharmD Unavailable [phone] Reason for Visit * Reason Onset Date Comments Referral 08/30/2023 Encounter Details Date Type Department Care Team ([facility] st Contact Info) Description 08/30/2023 Telephone [facility] [address] [place] [address] Angelique Grace DO [address] [place] [address] Referral Social History Tobacco Use Types Packs/Day [...] referral for Cosmetic Eyelid Surgery how ever editorial 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 documented in this encounter Plan of Treatment Upcoming Encounters Date Type Department Care Team (Late st Contact Info) Description 01/28/2025 2:45 PM EST Office Visit [facility] [address] [place] [address] Nannette Daigle FNP [address] [place] [address] 01/31/2025 11:30 AM EST Medication Management [facility] [address] [place] [address] Yu BusbyRadha [address] [place] [address] documented as of this encounter Goals Goal [...] documented as of this encounter Care Teams Insole Coverer Relationship Specialty Start Date End Date Angelique Grace DO [address] [place] [address] PCP - General Family Medicine 03/14/18 Yu Busby PharmD [address] [place] [address] Pharmacist Internal Medicine 11/03/22 documented as of this encounter
--- OUTSIDE RECORDS SUMMARY | 2025-01-15 17:57 | XMS_ITS | Encounter Summary ---
Author Organization [employer] Address [address] [facility] 7t [place] [address] Care Team Providers Care Senior Software Quality Analyst Name Role Phone Angelique Grace DO Primary Care Provider [phone] Yu Busby PharmD Unavailable [phone] Reason for Visit * Reason Onset Date Comments Call Back Request 03/23/2023 Encounter Details Date Type Department Care Team ([facility] st Contact Info) Description 03/23/2023 Telephone [facility] [address] [place] [address] Angelique Grace DO [address] [place] [address] Call Back Request Social History Tobacco Use [...] requesting a call back in regards pregabalin LNADY, insurance underwriter advise pt about the status on chart but pt still want a call from a nurse. documented in this encounter Plan of Treatment Upcoming Encounters Date Type Department Care Team (Late st Contact Info) Description 01/28/2025 2:45 PM EST Office Visit [facility] [address] [place] [address] Nannette Daigle FNP [address] [place] [address] 01/31/2025 11:30 AM EST Medication Management [facility] [address] [place] [address] Yu Busby, PharmD [address] [place] [phone] documented as of this encounter Goals Goal [...] documented as of this encounter Care Teams Senior Software Quality Analyst Relationship Specialty Start Date End Date Angelique Grace DO [address] [place] [address] PCP - General Family Medicine 03/14/18 Yu Busby PharmD [address] [place] [address] Pharmacist Internal Medicine 11/03/22 documented as of this encounter
--- OUTSIDE RECORDS SUMMARY | 2025-01-15 17:57 | XMS_ITS | Encounter Summary ---
Author Organization [employer] Address [address] [facility] 7t [place] [address] Care Team Providers Care Mounter Flutes And Piccolos Name Role Phone Angelique Grace DO Primary Care Provider DelCastillo clements PharmD Unavailable Unavail able Yu Busby PharmD Unavailable [phone] Reason for Visit * Reason Onset Date Comments Call requesting 05/26/2022 Encounter Details Date Type Department Care Team ([facility] st Contact Info) Description 05/26/2022 Telephone [facility] [address] [place] [address] Angelique Grace DO [address] [place] [address] Call requesting Social History Tobacco Use Types [...] Master IM be used so pt. Can maintenance scheduler her appt? * Telephone Encounter - Rosio Diaz - 05/26/2022 11:05 AM EDT Tc from pt requesting a call from the nurses pt claims that in order to get an appt at [facility]([phone]), nurse has to call make appt because facility is requiring some information in order to schedule appt. Please contact pt at [phone] documented in this encounter Plan of Treatment Upcoming Encounters Date Type Department Care Team (Late st Contact Info) Description 01/28/2025 2:45 PM EST Office Visit [facility] [address] [place] [address] Nannette Daigle FNP [address] [place] [phone] 01/31/2025 11:30 AM EST Medication Management [address] [address] Yu Busby PharmD [address] [place] [address] documented as of this encounter Visit Diagnoses Not on filedocumented in this encounter Care Teams Mounter Flutes And Piccolos Relationship Specialty Start Date End Date Angelique Grace DO [address] [place] [address] PCP - General Family Medicine 03/14/18 Castillo Pradhan PharmD [address] [place] [address] Pharmacist Internal Medicine 07/22/22 11/02/22 Yu Busby PharmD [address] [place] [address] Pharmacist Internal Medicine 11/03/22 documented as of this encounter
== END 2025-01-15 15:51 | disposition home or self-care (01) ==
LOC: HO.HOS 14:52
PROVIDERS: PCP Family Medicine
DX: G56.02 Carpal tunnel syndrome, left upper limb (principal); M65.322 Trigger finger, left index finger
CPT/HCPCS: 99024

== ENCOUNTER → 2025-01-15 14:52 | Outpatient (BNVA) | payer MEDICAID, SELFPAY | PROVIDERS: PCP Family Medicine | DX: Z47.89 Encounter for other orthopedic aftercare (principal); G56.03 Carpal tunnel syndrome, bilateral upper limbs; M65.322 Trigger finger, left index finger | CPT/HCPCS: 99212 ==

== ENCOUNTER 2025-01-31 13:40 | Outpatient (REF) | payer MEDICAID, SELFPAY ==
--- OUTSIDE RECORDS SUMMARY | 2025-01-28 14:45 | XMS_ITS | Encounter Summary ---
Author Organization [employer] Address [address] [facility] 7t [place] [address] Care Team Providers Care Other Spatial Scientist Name Role Phone JoonAngelique henry Primary Care Provider [phone] Yu Busby PharmD Unavailable [phone] Reason for Referral * Consultation (Routine) - Authorized Specialty Diagnoses / Procedures Referred By Donn pruitt Referred To Contact Gastroenterology Diagnoses Encounter for physical examination Nannette Daigle FNP [address] [place] [address] Phone: tel: fax: [facility] [address]rd [place] [address] Phone: tel: fax: Referral ID Status Reason Start Date Expiration Date Visits Requested Visits Authorized [id number] Authorized Specialty Services Required 01/30/2026 6 6 Encounter Details Date Type Department Care Team (Late st Contact Info) Description 01/28/2025 2:45 PM EST Office Visit [facility] [address] [place] [address] Nannette Daigle FNP [address] [place] [address] Encounter for physical examination (Primary Dx); Type 2 diabetes mellitus without complication, with long-term current use of insulin (HCC); Elevated blood pressure reading in office with diagnosis of hypertension Social History Tobacco Use Types Packs/Day [...] Sign Reading Time Taken Comments Blood Pressure 152/88 01/28/2025 3:10 PM EST Pulse 90 01/28/2025 3:10 PM EST Temperature 36.7 C (98.1 F) 01/28/2025 3:10 PM EST Respiratory Rate 16 01/28/2025 3:10 PM EST Oxygen Saturation 97% 01/28/2025 3:10 PM EST Inhaled Oxygen Concentration - - Weight 79.4 kg (175 lb) 01/28/2025 3:10 PM EST Height 155.2 cm (5' 1.12 ) 01/28/2025 3:10 PM ES T Body Mass Index 32.93 01/28/2025 3:10 PM EST documented in this encounter Progress Notes * Nannette Daigle, PAUL - 01/28/2025 2:45 PM EST Subjective: Maria C Lewis is a 54 y.o. female who presents to the office for a physical exam. Interim history: Hypertension - History of elevated blood pressure - Currently taking one and a half pills for blood pressure - Does not monitor blood pressure at home due to broken cuff - Denies headache and weakness Diabetes Mellitus - History of high blood sugar - Last reported blood sugar value: 273 - Previously used Ozempic, currently using Tojoro - Has used metformin in the past but does not want to take it Problem List[1] Surgical History[2] Family History[3] Social History Aminata lives in apartment. Denies fire arms in the home. Reports working smoke and fire alarm. Reports home and environment safe Eats variety of food including fruits and vegetables. No routine exercise. 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 Patient reports pending mammogram Last menstrual period: 6 yrs ago. Menopause . Colonoscopy with polypectomy in 02/16/2018 due for colorectal CA screening Denies use of alcohol and drugs, former smoker quit 1 year ago Allergies[4] Current Medications[5] Health Maintenance Topic Date Due Colorectal Cancer Screening Never done Diabetes: Foot Exam Never done RSV Patients and Patients Aged 60 years or older (1 - Risk 50-74 years 1-dose series) Never done Mammogram 03/21/2025 Diabetes: Hemoglobin A1C 04/30/2025 Depression Screening 07/04/2025 SDOH Screening 07/04/2025 Alcohol/Substance Use Screening 07/04/2025 Disability Screening 07/04/2025 Lipid Panel 08/30/2025 Diabetes: Urine Protein Screening 08/30/2025 Eye Exam 10/22/2025 Tobacco Screening 01/28/2026 Cervical Cancer Screening 04/02/2027 DTaP/Tdap/Td Vaccines (3 - Td or Tdap) 11/20/2032 Hepatitis B Vaccines Completed Hepatitis A Vaccines Completed Influenza Vaccine Completed Pneumococcal Vaccine: 50+ Years Completed Zoster Vaccines Completed HIV Screening Completed Hepatitis C Screening Completed COVID-19 Vaccine Completed RSV under 20 months Aged Out HIB Vaccines Aged Out IPV Vaccines Aged Out Meningococcal Vaccine Aged Out Rotavirus Vaccines Aged Out HPV Vaccines Aged Out Meningococcal B Vaccine Aged Out Review of Systems Constitutional: Negative for activity change, appetite change, fatigue and fever. HENT: Negative for congestion, ear discharge, ear pain, rhinorrhea and sore throat. Eyes: Negative for discharge, redness and itching. Respiratory: Negative for cough, shortness of breath and wheezing. Cardiovascular: Negative for chest pain. Gastrointestinal: Negative for abdominal pain, blood in stool, constipation, diarrhea, nausea and vomiting. Endocrine: Negative for polydipsia and polyuria. Genitourinary: Negative for decreased urine volume, difficulty urinating, dyspareunia, hematuria and menstrual problem. Musculoskeletal: Negative for arthralgias, gait problem and joint swelling. Skin: Negative for rash. Allergic/Immunologic: Negative for environmental allergies and food allergies. Neurological: Negative for dizziness, weakness and headaches. Hematological: Does not bruise/bleed easily. Psychiatric/Behavioral: Negative for behavioral problems, sleep disturbance and suicidal ideas. Vitals: 01/28/25 1510 BP: (!) 152/88 BP Location: Left arm Patient Position: Sitting BP Cuff Size: Adult Pulse: 90 Resp: 16 Temp: 98.1 ??F (36.7 ??C) TempSrc: Oral SpO2: 97% Weight: 175 lb (79.4 kg) Height: 5' 1.12 (1.552 m) Physical Exam Constitutional: Appearance: Normal appearance. HENT: Head: Normocephalic and atraumatic. Right Ear: Tympanic membrane, ear canal and external ear normal. Left Ear: Tympanic membrane, ear canal and external ear normal. Nose: Nose normal. No congestion. Mouth/Throat: Mouth: Mucous membranes are moist. Pharynx: Oropharynx is clear. Eyes: Extraocular Movements: Extraocular movements intact. Pupils: Pupils are equal, round, and reactive to light. Cardiovascular: Rate and Rhythm: Normal rate and regular rhythm. Pulses: Normal pulses. Heart sounds: Normal heart sounds. No murmur heard. Pulmonary: Effort: Pulmonary effort is normal. Breath sounds: Normal breath sounds. No wheezing. Chest: Chest wall: No tenderness. Abdominal: General: Abdomen is flat. Bowel sounds are normal. Palpations: Abdomen is soft. Tenderness: There is no guarding or rebound. Musculoskeletal: General: Normal range of motion. Cervical back: Normal range of motion. Right lower leg: No edema. Left lower leg: No edema. Skin: General: Skin is warm and dry. Capillary Refill: Capillary refill takes less than 2 seconds. Findings: No bruising. Neurological: General: No focal deficit present. Mental Status: She is alert and oriented to person, place, and time. Cranial Nerves: No cranial nerve deficit. Sensory: No sensory deficit. Psychiatric: Mood and Affect: Mood normal. Behavior: Behavior normal. Thought Content: Thought content normal. Judgment: Judgment normal. Problem List Items Addressed This Visit Essential hypertension Elevated blood pressure in the office with diagnosis of hypertension - Essential hypertension with elevated office blood pressure. Currently taking antihypertensive medication- Amlodipine 1.5 tablets daily - BP elevated at this visit - Pertinent negatives include no blurred vision, chest pain, headaches, malaise/fatigue, neck pain,orthopnea, palpitations, peripheral edema, PND, shortness of breath or sweats. There are no associated agents to hypertension. - Provided blood pressure cuff for home monitoring. Instructed to record blood pressure twice daily(1-2 hours after medication and at night before bed) for 1 week. Referred to PCP nurse for review and possible adjustment of antihypertensive regimen if readings remain elevated. - Continue to take your meds as prescribed. Do not change or discontinue current prescriptions without consulting health care provider - Aerobic exercise daily at 30 mins daily to reduce BP and increase as tolerated. - Eat heart healthy diet such as DASH. Low-sodium diet less than 2g/day to reduce BP and prevent ASCVD. - Seek immediate medical attention for chest pain, palpitations, SOB, syncope, or sudden changes inmental status. Relevant Medications Blood Pressure kit Type 2 diabetes mellitus (HCC) - HbA1c: 9% (elevated) - Random blood glucose: 273 mg/dL (elevated) - Type 2 diabetes mellitus with elevated A1c and blood glucose (A1c 9, glucose 273). Currently using insulin (Toujeo). Ozempic discontinued. Declined referral to CD for diabetes control. - Reports Prior use of metformin, but does not wish to restart. - Recommended dietary and exercise modifications. Advised to discuss with PCP regarding resuming weekly injection for better glycemic control. Relevant Orders POCT Glucose (Completed) POCT Hgb A1c (Completed) Other Visit Diagnoses Encounter for physical examination - Primary Well nourished, alert and cooperative , good historian, and answering questions appropriately Plan Patient advised to do lab work already scheduled. Patient educated on importance of blood lab work Referral to GI for colonoscopy. History of polypectomy in 2018 Patient reports outstanding visit for mammogram Diet and exercise review Hep B lab work to determine presence of antigens or antibody Lifestyle and behavioral health assessment Patient education on vaccination and importance getting annual vaccines- Relevant Orders Referral to Gastroenterology Visit Conducted in: Thai Translation by: Provided by [employer] Phone Service ID # [[id number]] Patient Active Problem List Diagnosis Chronic low back pain Degenerative disc disease, lumbar Essential hypertension Type 2 diabetes mellitus (HCC) Fatty liver Left leg paresthesias Chronic migraine Hyperlipidemia Major depression, recurrent, chronic (CMS/HCC) Nonobstructive atherosclerosis of coronary artery Chronic interstitial cystitis Anxiety Allergic rhinitis Tobacco dependence in remission Chronic gastroesophageal reflux disease Chronic sacroiliac pain Hair loss Chronic pain of both knees Kidney stone on left side Encounter for preventive health examination Renal pain Dietary counseling Exercise counseling Generalized abdominal pain Pharyngitis Hypersomnia Other fatigue Lower extremity edema Plantar fasciitis, bilateral [2] Past Surgical History: Procedure Laterality Date COLONOSCOPY W/ POLYPECTOMY 02/16/2018 CYSTOSCOPY 08/31/2016 ESOPHAGOGASTRODUODENOSCOPY 09/16/2017 TRIGGER FINGER RELEASE Right 10/24/2019 TRIGGER FINGER RELEASE Left 12/14/2021 TUBAL LIGATION [3] Family History Problem Relation Name Age of Onset Hypertension Mother Hyperlipidemia Mother Diabetes Mother Coronary artery disease Mother Depression Mother Diabetes Father Hypertension Father Stroke Father Alcohol abuse Father Breast cancer Maternal Cousin [4] Allergies Allergen Reactions Enalapril Rash, Shortness of breath and Unknown Lisinopril Angioedema, Hives and Shortness of breath Other Reaction(s): HIVES,THROAT SWELLING Atorvastatin Other reaction(s): Muscle cramp / pain , muscle cramps Hydrochlorothiazide Unknown Metoprolol Unknown Patient does not remember Metronidazole Unknown Other reaction(s): ? palpitations, Altered Heart Rate Oxycodone Vomiting [5] Current Outpatient Medications Medication Sig Dispense Refill Alcohol Swabs pads USE DIRECTED FOUR TIMES A DAY FOR BLOOD SUGAR TESTING AND INSULIN INJECTION 200 each 11 amLODIPine (Norvasc) 5 MG tablet TAKE 1.5 TABLETS BY MOUTH ONCE DAILY 135 tablet 3 ascorbic acid (Vitamin C) 250 MG tablet TAKE 1 TABLET BY MOUTH TWICE A DAY WITH FERROUS SULFATE 180tablet 1 aspirin (Aspirin Low Dose) 81 MG EC tablet Take 1 tablet (81 mg) by mouth in the morning. 90 tablet3 baclofen (Lioresal) 10 MG tablet Take one tablet TID PRN 60 tablet 3 Blood Glucose Monitoring Suppl (FreeStyle Lite) device Inject 1 each under the skin 3 times daily. Use to test blood sugar three times daily, as directed 1 each 0 Blood Pressure kit 1 Units 2 times daily. 1 kit 0 busPIRone (Buspar) 15 MG tablet Take 1 tablet by mouth 2 times daily. ikrbxmaknf-snixrprvgbxxy-orybauma 50-325-40 MG tablet TAKE ONE TABLET BY MOUTH EVERY 4 HOURS NEEDED. MAX 2 TABLETS PER 24 HOURS 20 tablet 1 cetirizine (ZyrTEC) 10 MG tablet Take 1 tablet (10 mg) by mouth Once per day. 30 tablet 11 cholecalciferol (Vitamin D-3) 50 MCG (2000 UT) tablet TAKE ONE TABLET BY MOUTH EVERY DAY 90 tablet 3 cyanocobalamin (Vitamin B-12) 1000 MCG tablet Take 1 tablet (1,000 mcg) by mouth every other day. 45 tablet 3 dapagliflozin (Farxiga) 10 MG TAKE ONE TABLET BY MOUTH EVERY DAY IN THE MORNING 30 tablet 11 Diclofenac Sodium (Arthritis Pain Reliever) 1 % gel APPLY 2 GRAMS TOPICALLY TO THE PAINFUL AREAS FOUR TIMES A DAY IF NEEDED FOR PAIN 100 g 3 diphenhydrAMINE (BENADryl) 25 MG capsule Take 1 capsule (25 mg) by mouth if needed at bedtime for allergies. 90 capsule 0 E-400 180 MG (400 UNIT) capsule take 2 capsules by oral route every day at bedtime escitalopram (Lexapro) 20 MG tablet Take 10 mg by mouth in the morning. glucose blood (FREESTYLE LITE) test strip Test blood sugars three times a day 100 each 11 insulin glargine (Toujeo SoloStar) 300 UNIT/ML injection Inject 66 Units under the skin in the morning. Increase, as directed, up to a max of 82 units per day. 9 mL 5 insulin pen needle (B-D ULTRAFINE III SHORT PEN) 31G X 8 mm misc Use once daily for insulin injection 100 each 3 Ketotifen Fumarate 0.035 % solution Administer 1 drop into affected eye(s) if needed in the morningand at bedtime (itching). 10 mL 3 meloxicam (Mobic) 15 MG tablet TAKE ONE TABLET BY MOUTH EVERY DAY NEEDED FOR MILD TO MODERATE PAIN 30 tablet 2 naloxone (Narcan) 4 mg/0.1 mL nasal spray spray 0.1 milliliter by intranasal route in 1 nostril mayrepeat dose every 2-3 minutes as needed alternating nostrils with each dose omega-3 (Fish Oil) 1000 MG capsule Take 1 capsule by mouth 2 times daily. omeprazole (PriLOSEC) [address] capsule TAKE ONE CAPSULE BY MOUTH TWICE A DAY BEFORE BREAKFAST AND SUPPER 180 capsule 1 pregabalin (Lyrica) 100 MG capsule TAKE ONE CAPSULE BY MOUTH THREE TIMES A DAY 90 capsule 1 Procto-Med HC 2.5 % rectal cream apply by topical route 4 times every day to the affected area(s) as needed for Hemorrhoids 28 g 2 rosuvastatin (Crestor) 40 MG tablet TAKE ONE TABLET BY MOUTH EVERY DAY 90 tablet 1 Semaglutide,0.25 or 0.5MG/DOS, (Ozempic, 0.25 or 0.5 MG/DOSE,) 2 MG/3ML solution pen-injector Inject 0.5 mg under the skin 1 (one) time per week. 3 mL 11 TRUEplus Lancets 33G mis Use to test blood sugar 3 time(s) daily 100 each 11 Current Facility-Administered Medications Medication Dose Route Frequency Provider Last Rate Last Admin aspirin EC tablet 325 mg 325 mg Oral Daily PAUL Rocha 325 mg at 12/13/22 1515 nitroglycerin (Nitrostat) SL tablet 0.4 mg 0.4 mg Sublingual q5 min PRN PAUL Rocha documented in this encounter Plan of Treatment Upcoming Encounters Date Type Department Care Team (Late st Contact Info) Description 02/04/2025 2:30 PM EST Clinical Support [address] [address] 02/14/2025 1:30 PM EST Clinical Support [address] [address] 02/26/2025 11:30 AM EST Medication Management [address] [place] [address] Yu Busby PharmD [address] [place] [address] Scheduled Referrals Name Type Priority Associated Diagnoses Order Schedule Referral to Gastroenterology Outpatient Referral Routine Encounter for physical examination Expected: 01/29/2025 (Approximate), Expires: 01/29/2026 documented as of this encounter Goals Goal Patient Goal Type Associated Problems Recent Progress Patient-Stated? Author Smoking cessation General No Yu Busby, PharmD Hemoglobin A1c < 7 Result Component 9(01/31/2025 2:15 PM EST) No Castillo Pradhan PharmD Record your blood sugar as directed Result Component No Yu Busby, PharmD Help patients manage their type 2 diabetes Care Plan Help patients manage their type 2 diabetes No Okhipo, Nannette, CANDLE MAKER Weekly blood pressure task Care Plan Weekly blood pressure task No Okhipo, Nannette, CANDLE MAKER Help patients manage their type 2 diabetes Care Plan Help patients manage their type 2 diabetes No Okhipo, Nannette, CANDLE MAKER Patient has chronic kidney disease Care Plan Patient has chronic kidney disease No Okhipo, Nannette, CANDLE MAKER Weekly blood pressure task Care Plan Weekly blood pressure task No Okhipo, Nannette, CANDLE MAKER Patient has chronic kidney disease Care Plan Patient has chronic kidney disease No Okhipo, Nannette, CANDLE MAKER documented as of this encounter Procedures Procedure Name Priority Date/Time Associated Diagnosis Comments POCT GLYCATED HEMOGLOBIN, TOTAL Routine 01/28/2025 3:13 PM EST Type 2 diabetes mellitus without complication, with long-term current use of insulin (HCC) POCT GLUCOSE Routine 01/28/2025 3:12 PM EST Type 2 diabetes mellitus without complication, with long-term current use of insulin (HCC) documented in this encounter Results * (ABNORMAL) POCT Hgb A1c (01/28/2025 3:13 PM EST) Hemoglobin A1C 9.0(A) 4.0 - 5.7 % QC Media Lot # [id number] Lot# Expiration Date 600 Blood 01/28/2025 3:13 PM EST [facility] POINT OF CARE TEST ENTER/EDIT ORDERABLES Final Result * (ABNORMAL) POCT Glucose (01/28/2025 3:12 PM EST) Glucose Blood, POC 273(A) 60 - 200 mg/dL QC Media Lot # [id number] Lot# Expiration Date 848,362 Blood Capillary blood specimen / Unknown 01/28/2025 3:12 PM EST [facility] POINT OF CARE TEST ENTER/EDIT ORDERABLES Final Result documented in this encounter Visit Diagnoses Diagnosis Encounter for physical examination- Primary Type 2 diabetes mellitus without complication, with long-term current use of insulin (HCC) Elevated blood pressure reading in office with diagnosis of hypertension documented in this encounter Additional Health Concerns Active Problems Noted Date Diagnosed Date Help patients manage their type 2 diabetes 01/27 Weekly blood pressure task 01/27/2025 Help patients manage their type 2 diabetes 01/27 Patient has chronic kidney disease 01/27/2025 Weekly blood pressure task 01/27/2025 Patient has chronic kidney disease 01/27/2025 Assessment Noted Time PHQ-9 Depression Total Score: 0 07/05/19 25 11:39 AM EDT documented as of this encounter Care Teams Other Spatial Scientist Relationship Specialty Start Date End Date Angelique Grace DO [address] [place] [address] PCP - General Family Medicine 03/14/18 Yu Busby PharmD [address] [place] [address] Pharmacist Internal Medicine 11/03/22 documented as of this encounter
--- OUTSIDE RECORDS SUMMARY | 2025-01-29 15:00 | XMS_ITS | Encounter Summary ---
Author Organization [employer] Address [address] [facility] 7[address] [place] [address] Care Team Providers Care Operation Shift Supervisor Name Role Phone Angelique Grace DO Primary Care Provider [phone] Yu Busby PharmD Unavailable [phone] Reason for Visit * Reason Comments Immunizations Encounter Details Date Type Department Care Team ([facility] st Contact Info) Description 01/29/2025 3:00 PM EST Immunization [facility] MED[facility]INE [address] [place] [address] Rosalia Austin, MAGDA [address] [place] [address] Encounter for immunization Social History Tobacco Use Types Packs/Day Years [...] as of this encounter Progress Notes * Rosalia Austin RN - 01/29/2025 3:00 PM EST S: Pt here for nurse visit influenza and COVID vaccine. Today pt denies any allergies or previous adverse reactions to previous immunizations O: Influenza vaccination 0.5ml, administered in left arm intramuscularly and COVID vaccination 0.3ml administered in right arm intramuscularly. Pt tolerated well with no discomfort. No adverse reaction noted after 15 minutes. A: Immunization Administration P: Pt is to follow up with PCP as needed. Pt agrees with plan and verbalized understanding. Rosalia Austin RN documented in this encounter Plan of Treatment Upcoming Encounters Date Type Department Care Team (Late st Contact Info) Description 02/04/2025 2:30 PM EST Clinical Support [address] [address] 02/14/2025 1:30 PM EST Clinical Support [address] [address] 02/26/2025 11:30 AM EST Medication Management [address] [address] Yu Busby, PharmD [address] [place] [address] documented as of this encounter Goals Goal Patient Goal Type Associated Problems Recent Progress Patient-Stated? Author Smoking cessation General No Yu Busby, PharmD Hemoglobin A1c < 7 Result Component 9(01/31/2025 2:15 PM EST) No Castillo Pradhan PharmD Record your blood sugar as directed Result Component No PuiaDarrynYu, PharmD Help patients manage their type 2 diabetes Care Plan Help patients manage their type 2 diabetes No Okhipo, Nannette, CODING COMPLIANCE MANAGER Weekly blood pressure task Care Plan Weekly blood pressure task No Okhipo, Nannette, CODING COMPLIANCE MANAGER Help patients manage their type 2 diabetes Care Plan Help patients manage their type 2 diabetes No Okhipo, Nannette, CODING COMPLIANCE MANAGER Patient has chronic kidney disease Care Plan Patient has chronic kidney disease No Okhipo, Nannette, CODING COMPLIANCE MANAGER Weekly blood pressure task Care Plan Weekly blood pressure task No Okhipo, Nannette, CODING COMPLIANCE MANAGER Patient has chronic kidney disease Care Plan Patient has chronic kidney disease No Okhipo, Nannette, CODING COMPLIANCE MANAGER Weekly blood pressure task Care Plan Weekly blood pressure task No JamesiaDarrynYu, PharmD Weekly blood pressure task Care Plan Weekly blood pressure task No PuiaDarrynYu, PharmD Patient has chronic kidney disease Care Plan Patient has chronic kidney disease No Puia Yu, PharmD Patient has chronic kidney disease Care Plan Patient has chronic kidney disease No Jamesia Yu, PharmD Weekly blood pressure task Care Plan Weekly blood pressure task No Rosalia Austin RN Weekly blood pressure task Care Plan Weekly blood pressure task No Rosalia Austin RN Patient has chronic kidney disease Care Plan Patient has chronic kidney disease No Rosalia Austin, MAGDA Patient has chronic kidney disease Care Plan Patient has chronic kidney disease No Rosalia Austin, MAGDA documented as of this encounter Visit Diagnoses Diagnosis Encounter for immunization documented in this encounter Additional Health Concerns Active Problems Noted Date Diagnosed Date Help patients manage their type 2 diabetes 01/27 Weekly blood pressure task 01/27/2025 Help patients manage their type 2 diabetes 01/27 Patient has chronic kidney disease 01/27/2025 Weekly blood pressure task 01/27/2025 Patient has chronic kidney disease 01/27/2025 Weekly blood pressure task 01/29/2025 Weekly blood pressure task 01/29/2025 Patient has chronic kidney disease 01/29/2025 Patient has chronic kidney disease 01/29/2025 Weekly blood pressure task 01/29/2025 Weekly blood pressure task 01/29/2025 Patient has chronic kidney disease 01/29/2025 Patient has chronic kidney disease 01/29/2025 Assessment Noted Time PHQ-9 Depression Total Score: 0 07/05/19 25 11:39 AM EDT documented as of this encounter Care Teams Operation Shift Supervisor Relationship Specialty Start Date End Date Angelique Grace DO [address] [place] [address] PCP - General Family Medicine 03/14/18 Yu Busby PharmD [address] [place] [address] Pharmacist Internal Medicine 11/03/22 documented as of this encounter
[2025-01-31 15:58] LABS: Hematocrit 43.7 % (37.0-47.0); Hemoglobin 14.2 g/dl (12.0-16.0); Mean Corpuscular HGB Conc 32.5 g/dl (31.0-35.0); Mean Corpuscular Hemoglobin 29.0 pg (27.0-33.0); Mean Corpuscular Volume 89.2 fL (80.0-98.0); NRBC Abs Auto 0.000 X10*3/uL (0.0-0.012); NRBC Pct Auto 0.0 /100WBC (0.0-0.2); Platelet Count 199 X10*3/uL (160-400); Red Blood Count 4.90 X10*6/uL (4.20-5.50); White Blood Count 4.8 X10*3/uL (4.8-10.8)
[2025-01-31 16:08] LABS: INTERNATIONAL NORM RATIO 1.0 (0.9-1.1); Prothrombin Time 12.5 SEC (11.2-13.5)
[2025-01-31 16:18] LABS: Alanine Aminotransferase 35 U/L (0-31); Albumin Level 4.6 g/dL (3.5-5.0); Alkaline Phosphatase 67 U/L (39-117); Anion Gap 11 (12-20); Aspartate Amino Transferase 30 U/L (5-31); Blood Urea Nitrogen 19 mg/dL (9-16); Calcium 9.6 mg/dL (8.4-10.2); Carbon Dioxide 28 mmol/L (22-29); Chloride 107 mmol/L (96-108); Estimated Glomerular Filt Rate > 60; Potassium 4.3 mmol/L (3.3-5.1); Sodium 142 mmol/L (135-145); Total Protein 7.9 g/dL (6.5-8.0)
[2025-01-31 16:22] LABS: Alanine Aminotransferase 33 U/L (0-31); Albumin Level 4.5 g/dL (3.5-5.0); Alkaline Phosphatase 66 U/L (39-117); Anion Gap 12 (12-20); Aspartate Amino Transferase 29 U/L (5-31); Blood Urea Nitrogen 19 mg/dL (9-16); Calcium 9.6 mg/dL (8.4-10.2); Carbon Dioxide 28 mmol/L (22-29); Chloride 107 mmol/L (96-108); Estimated Glomerular Filt Rate > 60; Potassium 4.3 mmol/L (3.3-5.1); Sodium 143 mmol/L (135-145); Total Protein 7.8 g/dL (6.5-8.0)
[2025-01-31 16:37] LABS: Thyroid Stimulating Hormone 0.25 uIU/mL (0.32-4.0)
[2025-01-31 16:40] LABS: Free T4 (Free Thyroxine) 0.76 ng/dL (0.71-1.85)
[2025-01-31 16:46] LABS: Folate 15.5 ng/mL (> or = 4.0); Vitamin B12 620 pg/mL (200-900)
--- OUTSIDE RECORDS SUMMARY | 2025-01-31 19:06 | XMS_ITS | Encounter Summary ---
Author Organization [employer] Address [address] [facility] 7t [place] [address] Care Team Providers Care Nursing Education Consultant Name Role Phone Angelique Grace DO Primary Care Provider [phone]- [phone] Yu Busby PharmD Unavailable [phone] Reason for Visit * Reason Onset Date Comments Referral 08/30/2023 Encounter Details Date Type Department Care Team ([facility] st Contact Info) Description 08/30/2023 Telephone [facility] MEDICINE [address] [place] [address] Angelique Grace DO [address] [place] [address] Referral Social History Tobacco Use Types Packs/Day [...] referral for Cosmetic Eyelid Surgery 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 tech 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 documented in this encounter Plan of Treatment Upcoming Encounters Date Type Department Care Team (Late st Contact Info) Description 02/04/2025 2:30 PM EST Clinical Support [facility] MEDICINE [address] [place] [address] 02/14/2025 1:30 PM EST Clinical Support [facility] MEDICINE [address] [place] [address] 02/26/2025 11:30 AM EST Medication Management [facility] [address] [place] [address] Yu Busby, PharmD [address] [place] [address] documented as of this encounter Goals Goal [...] documented as of this encounter Care Teams Nursing Education Consultant Relationship Specialty Start Date End Date Angelique Grace DO [address] [place] [address] PCP - General Family Medicine 03/14/18 Yu Busby PharmD [address] [place] [address] Pharmacist Internal Medicine 11/03/22 documented as of this encounter
--- OUTSIDE RECORDS SUMMARY | 2025-01-31 19:06 | XMS_ITS | Encounter Summary ---
Author Organization [employer] Address [address] [facility] 7t [place] [address] Care Team Providers Care Architectural Manager Name Role Phone Angelique Grace DO Primary Care Provider [phone]- [phone] Yu Busby PharmD Unavailable [phone] Reason for Visit * Reason Onset Date Comments callback requested 01/27/2024 Encounter Details Date Type Department Care Team ([facility] st Contact Info) Description 01/27/2024 Telephone [facility] MEDICINE [address] [place] [address] Angelique Grace DO [address] [place] [address] callback requested Social History Tobacco Use Types [...] has to payout of pocket , Callback [phone] documented in this encounter Plan of Treatment Upcoming Encounters Date Type Department Care Team (Late st Contact Info) Description 02/04/2025 2:30 PM EST Clinical Support [address] [address] 02/14/2025 1:30 PM EST Clinical Support [address] [address] 02/26/2025 11:30 AM EST Medication Management [address] [address] Yu Busby PharmD [address] [place] [address] documented as of this encounter Goals Goal [...] documented as of this encounter Care Teams Architectural Manager Relationship Specialty Start Date End Date Angelique Grace DO [address] [place] [address] PCP - General Family Medicine 03/14/18 Yu Busby PharmD [address] [place] [address] Pharmacist Internal Medicine 11/03/22 documented as of this encounter
--- OUTSIDE RECORDS SUMMARY | 2025-01-31 19:06 | XMS_ITS | Encounter Summary ---
Author Organization [employer] Address [address] [facility] 7t [place] [address] Care Team Providers Care Stockroom Attendant Name Role Phone Angelique Grace DO Primary Care Provider [phone]- [phone] Yu Busby PharmD Unavailable [phone] Reason for Visit * Reason Onset Date Comments Med Refill 06/26/2024 Encounter Details Date Type Department Care Team (Late st Contact Info) Description 06/26/2024 Telephone [facility] MEDICINE [address] [place] [address] Angelique Grace DO [address] [place] [address] Med Refill Social History Tobacco Use Types [...] tablet To be sent to: [facility] [address] [id number] [facility] documented in this encounter Plan of Treatment Upcoming Encounters Date Type Department Care Team (Late st Contact Info) Description 02/04/2025 2:30 PM EST Clinical Support [facility] MEDICINE [address] [place] [address] 02/14/2025 1:30 PM EST Clinical Support [facility] MEDICINE [address] [place] [address] 02/26/2025 11:30 AM EST Medication Management [facility] [address] [place] [address] Yu Busby, PharmD [address] [place] [address] documented as of this encounter Goals Goal [...] documented as of this encounter Care Teams Stockroom Attendant Relationship Specialty Start Date End Date Angelique Grace DO [address] [place] [address] PCP - General Family Medicine 03/14/18 Yu Busby PharmD [address] [place] [address] Pharmacist Internal Medicine 11/03/22 documented as of this encounter
--- OUTSIDE RECORDS SUMMARY | 2025-01-31 19:06 | XMS_ITS | Encounter Summary ---
Author Organization [employer] Address [address] [facility] 7t [place] [address] Care Team Providers Care Typesetting Supervisor Name Role Phone Angelique Grace DO Primary Care Provider [phone] PuiaYu PharmD Unavailable [phone] Reason for Visit * Reason Onset Date Comments Prior Authorization 01/31/2025 Krysta 3 CGM reader & 3 plus sensors Encounter Details Date Type Department Care Team ([facility] st Contact Info) Description 01/31/2025 Telephone [facility] MEDICINE [address] [place] [address] Puia, Yu, PharmD [address] [place] [address] Prior Authorization (Krysta 3 CGM reader & 3 plus sensors ) Social History Tobacco Use Types Packs/Day Years [...] encounter Miscellaneous Notes * Telephone Encounter - Yu Busby PharmD - 01/31/2025 4:28 PM EST Krysta 3 CGM requires PA. [facility] prepared & faxed PA to plan today; awaiting response at this time & patient is aware. PA packet sent to HIM for upload into EHR. FYI to PA team - this request is all set. documented in this encounter Plan of Treatment Upcoming Encounters Date Type Department Care Team (Late st Contact Info) Description 02/04/2025 2:30 PM EST Clinical Support [address] [address] 02/14/2025 1:30 PM EST Clinical Support [address] [address] 02/26/2025 11:30 AM EST Medication Management [address] [address] Yu Busby PharmD [address] [place] [address] documented as of this encounter Goals Goal Patient Goal Type Associated Problems Recent Progress Patient-Stated? Author Smoking cessation General No Yu Busby PharmD Hemoglobin A1c < 7 Result Component 9(01/31/2025 2:15 PM EST) No Castillo Pradhan PharmD Record your blood sugar as directed Result Component No Puia, Yu, PharmD Help patients manage their type 2 diabetes Care Plan Help patients manage their type 2 diabetes No Okhipo, Nannette, CLAY DRY PRESS HELPER Weekly blood pressure task Care Plan Weekly blood pressure task No Okhipo, Nannette, CLAY DRY PRESS HELPER Help patients manage their type 2 diabetes Care Plan Help patients manage their type 2 diabetes No Okhipo, Nannette, CLAY DRY PRESS HELPER Patient has chronic kidney disease Care Plan Patient has chronic kidney disease No Okhipo, Nannette, CLAY DRY PRESS HELPER Weekly blood pressure task Care Plan Weekly blood pressure task No Okhipo, Nannette, CLAY DRY PRESS HELPER Patient has chronic kidney disease Care Plan Patient has chronic kidney disease No Okhipo, Nannette, CLAY DRY PRESS HELPER Weekly blood pressure task Care Plan Weekly blood pressure task No Puia, Yu, PharmD Weekly blood pressure task Care Plan Weekly blood pressure task No Puia, Yu, PharmD Patient has chronic kidney disease Care Plan Patient has chronic kidney disease No Puia Yu, PharmD Patient has chronic kidney disease Care Plan Patient has chronic kidney disease No Puia, Yu, PharmD Weekly blood pressure task Care Plan Weekly blood pressure task No Rosalia Austin, MAGDA Weekly blood pressure task Care Plan Weekly blood pressure task No Rosalia Austin, MAGDA Patient has chronic kidney disease Care Plan Patient has chronic kidney disease No Rosalia Austin, MAGDA Patient has chronic kidney disease Care Plan Patient has chronic kidney disease No Rosalia Austin, MAGDA Weekly blood pressure task Care Plan Weekly blood pressure task No Aleida Trevino Weekly blood pressure task Care Plan Weekly blood pressure task No Aleida Trevino Patient has chronic kidney disease Care Plan Patient has chronic kidney disease No Aleida Trevino Patient has chronic kidney disease Care Plan Patient has chronic kidney disease No Aleida Trevino Weekly blood pressure task Care Plan Weekly blood pressure task No Puia, Yu, PharmD Weekly blood pressure task Care Plan Weekly blood pressure task No Puia, Yu, PharmD Patient has chronic kidney disease Care Plan Patient has chronic kidney disease No Yu Busby, PharmD Patient has chronic kidney disease Care Plan Patient has chronic kidney disease No Yu Busby PharmD documented as of this encounter Visit Diagnoses Not on filedocumented in this encounter Additional Health Concerns Active [...] kidney disease 01/29/2025 Weekly blood pressure task 01/30/2025 Weekly blood pressure task 01/30/2025 Patient has chronic kidney disease 01/30/2025 Patient has chronic kidney disease 01/30/2025 Weekly blood pressure task 01/31/2025 Weekly blood pressure task 01/31/2025 Patient has chronic kidney disease 01/31/2025 Patient has chronic kidney disease 01/31/2025 Assessment Noted Time PHQ-9 Depression Total Score: 0 07/05/19 25 11:39 AM EDT documented as of this encounter Care Teams Typesetting Supervisor Relationship Specialty Start Date End Date Angelique Grace DO [address] [place] [address] PCP - General Family Medicine 03/14/18 Yu Busby, ChristieD [address] [place] [address] Pharmacist Internal Medicine 11/03/22 documented as of this encounter
--- OUTSIDE RECORDS SUMMARY | 2025-01-31 19:06 | XMS_ITS | Encounter Summary ---
Author Organization [employer] Address [address] [facility] 7t [place] [address] Care Team Providers Care Manager Payment Name Role Phone Angelique Grace DO Primary Care Provider [phone] Yu Busby PharmD Unavailable [phone] Encounter Details Date Type Department Care Team (Late st Contact Info) Description 01/31/2025 Orders Only GENERIC EXTERNAL DATA DEPARTMENT Provider, [...] Description 02/04/2025 2:30 PM EST Clinical Support [address] [address] 02/14/2025 1:30 PM EST Clinical Support [address] [address] 02/26/2025 11:30 AM EST Medication Management [address] [address] Yu Busby, PharmD [address] [place] [phone] documented as of this encounter Goals Goal Patient Goal Type Associated Problems Recent Progress Patient-Stated? Author Smoking cessation General No Yu Busby, PharmD Hemoglobin A1c < 7 Result Component 9(01/31/2025 2:15 PM EST) No Castillo Pradhan PharmYusef Record your blood sugar as directed Result Component No Yu Busby, PharmD Help patients manage their type 2 diabetes Care Plan Help patients manage their type 2 diabetes No Okhipo, Nannette, OVAL OR CIRCULAR GLASS CUTTER Weekly blood pressure task Care Plan Weekly blood pressure task No Okhipo, Nannette, OVAL OR CIRCULAR GLASS CUTTER Help patients manage their type 2 diabetes Care Plan Help patients manage their type 2 diabetes No Okhipo, Nannette, OVAL OR CIRCULAR GLASS CUTTER Patient has chronic kidney disease Care Plan Patient has chronic kidney disease No Okhipo, Nannette, OVAL OR CIRCULAR GLASS CUTTER Weekly blood pressure task Care Plan Weekly blood pressure task No Okhipo, Nannette, OVAL OR CIRCULAR GLASS CUTTER Patient has chronic kidney disease Care Plan Patient has chronic kidney disease No Okhipo, Nannette, OVAL OR CIRCULAR GLASS CUTTER Weekly blood pressure task Care Plan Weekly blood pressure task No Puia, Yu, PharmD Weekly blood pressure task Care Plan Weekly blood pressure task No Puia, Yu, PharmD Patient has chronic kidney disease Care Plan Patient has chronic kidney disease No Puia, Yu, PharmD Patient has chronic [...] Patient has chronic kidney disease No Rosalia Austin RN Weekly blood pressure task Care Plan Weekly blood pressure task No Uriel Aleida Weekly blood pressure task Care Plan Weekly blood pressure task No Uriel, Aleida Patient has chronic kidney disease Care Plan Patient has chronic kidney disease No Uriel Aleida Patient has chronic kidney disease Care Plan Patient has chronic kidney disease No Uriel Aleida Weekly blood pressure task Care Plan Weekly blood pressure task No Puia, Yu, PharmD Weekly blood pressure task Care Plan Weekly blood pressure task No Puia, Yu, PharmD Patient has chronic kidney disease Care Plan Patient has chronic kidney disease No Puia, Yu, PharmD Patient has chronic kidney disease Care Plan Patient has chronic kidney disease No Puia, Yu, PharmD documented as of this encounter Procedures Procedure Name Priority Date/Time Associated Diagnosis Comments PROTHROMBIN TIME-INR Routine 01/31/2025 2:15 PM EST CBC Routine 01/31/2025 2:15 PM EST TSH Routine 01/31/2025 2:15 PM EST T4, FREE Routine 01/31/2025 2:15 PM EST COMPREHENSIVE METABOLIC PANEL Routine 01/31/2025 2:15 PM EST documented in this encounter Results * T4, Free (01/31/2025 2:15 PM EST) Free T4 (Free Thyroxine) 0.76 0.71 - 1.85 ng/dL [facility] 01/31/2025 2:15 PM EST 01/31/2025 3:51 PM EST Generic External Data Provider LAB BLOOD ORDERAB LES Final Result Performing Organization Address [facility]/ZIP Co de Phone Number [facility] [address] [place] [phone] * (ABNORMAL) TSH (01/31/2025 2:15 PM EST) Pathologist [facility] Thyroid Stimulating Hormone 0.25(L) 0.32 - 4.0 uIU/mL [facility] Comment:TSH 3rd Generation ( [facility]) 01/31/2025 2:15 PM EST 01/31/2025 3:51 PM EST Generic External Data Provider LAB BLOOD ORDERAB LES Final Result Performing Organization Address [facility]/ZIP Co de Phone Number [facility] [address] [place] [phone] * (ABNORMAL) Comprehensive Metabolic Panel (01/31/2025 2:15 PM EST) [facility] Sodium 143 135 - 145 mmol/L [facility] Potassium 4.3 3.3 - 5.1 mmol/L [facility] Chloride 107 96 - 108 mmol/L [facility] Carbon Dioxide 28 22 - 29 mmol/L [facility] Anion Gap 12 12 - 20 [facility] Urea Nitrogen (BUN) 19(H) 9 - 16 mg/dL [facility] Creatinine, Serum 0.63 0.5 - 1.4 mg/dL [facility] Estimated Glomerular Filt Rate >60 [facility] Comment:Chronic Kidney Disea se: Estimated GFR < 60 mL/min/[id number] Kidney Disease: Estimated GFR < 15 mL/min/1.73m2 Glucose 119(H) 60 - 115 mg/dL [facility] Calcium 9.6 8.4 - 10.2 mg/dL [facility] Bilirubin, Total 0.3 0.0 - 1.0 mg/dL [facility] Aspartate Amino Transferase 29 5 - 31 U/L [facility] Alanine Aminotransferase 33(H) 0 - 31 U/L [facility] Total Protein 7.8 6.5 - 8.0 g/dL [facility] Albumin Level 4.5 3.5 - 5.0 g/dL [facility] Alkaline Phosphatase 66 39 - 117 U/L [facility] 01/31/2025 2:15 PM EST 01/31/2025 3:51 PM EST Generic External Data Provider LAB BLOOD ORDERAB LES Final Result Performing Organization Address [facility] de Phone Number [facility] [address] [place] [phone] * Prothrombin Time-INR (01/31/2025 2:15 PM EST) Prothrombin Time 12.5 11.2 - 13.5 SEC [facility] INTERNATIONAL NORM RATIO 1.0 0.9 - 1.1 [facility] Comment:INTERNATIONAL NORMAL IZED RATIO (INR) REFERENCE RANGES Reference RangeFor patients not on anticoagulant therapy: 0.9 - 1.1INR ranges for oral anticoagulanttherapy:For prevention and treatment of venous thrombosis and pulmonary embolism: 2.0 - 3.0For acute myocardial infarction with aspirin therapy: 2.0 - 3.0For acute myocardial infarction without aspirin therapy: 3.0 - 4.0For patients with mechanical prosthetic heart valves: 2.5 - 3.5 01/31/2025 2:15 PM EST 01/31/2025 3:51 PM EST Generic External Data Provider LAB BLOOD ORDERAB LES Final Result Performing Organization Address [facility] Co de Phone Number [facility] [address] [place] [phone] * CBC (01/31/2025 2:15 PM EST) White Blood Count 4.8 4.8 - 10.8 X10*3/uL [facility] Red Blood Count 4.90 4.20 - 5.50 X10*6/uL [facility] Hemoglobin 14.2 12.0 - 16.0 g/dl [facility] Hematocrit 43.7 37.0 - 47.0 % [facility] Mean Corpuscular Volume 89.2 80.0 - 98.0 fL [facility] Mean Corpuscular Hemoglobin 29.0 27.0 - 33.0 pg [facility] Mean Corpuscular HGB Conc 32.5 31.0 - 35.0 g/dl [facility] Red Cell Distribution Width 13.4 11.0 - 16.0 % [facility] Platelet Count 199 160 - 400 X10*3/uL [facility] Mean Platelet Volume 11.2 9.4 - 12.3 fL [facility] NRBC Pct Auto 0.0 0.0 - 0.2 /100WBC [facility] NRBC Abs Auto 0.000 0.0 - 0.012 X10*3/uL [facility] 01/31/2025 2:15 PM EST 01/31/2025 3:51 PM EST us Generic External Data Provider LAB BLOOD ORDERAB LES Final Result [facility] [address] [place] [phone] documented in this encounter Visit Diagnoses [...] Time PHQ-9 Depression Total Score: 0 07/05/19 11:39 AM EDT documented as of this encounter Care Teams Manager Payment Relationship Specialty Start Date End Date Angelique Grace DO [address] [place] [address] PCP - General Family Medicine 03/14/18 Yu Busby PharmD [address] [place] [address] Pharmacist Internal Medicine 11/03/22 documented as of this encounter
--- OUTSIDE RECORDS SUMMARY | 2025-01-31 19:06 | XMS_ITS | Encounter Summary ---
Author Organization [employer] Address [address] [facility] 7t [place] [address] Care Team Providers Care Sewing Machine Operator Semiautomatic Name Role Phone Angelique Grace DO Primary Care Provider [phone] DelCastillo clements PharmD Unavailable Unavail able Yu Busby PharmD Unavailable Reason for Visit * Reason Onset Date Comments Call requesting 05/26/2022 Encounter Details Date Type Department Care Team ([facility] st Contact Info) Description 05/26/2022 Telephone [facility] MEDICINE [address] [place] [address] Angelique Grace DO [address] [place] [address] Call requesting Social History Tobacco Use Types [...] Master IM be used so pt. Can senior power scheduler her appt? * Telephone Encounter - Rosio Diaz - 05/26/2022 11:05 AM EDT Tc from pt requesting a call from the nurses pt claims that in order to get an appt at [facility]([phone]), nurse has to call make appt because facility is requiring some information in order to schedule appt. Please contact pt at [phone] documented in this encounter Plan of Treatment Upcoming Encounters Date Type Department Care Team (Late st Contact Info) Description 02/04/2025 2:30 PM EST Clinical Support [address] [address] 02/14/2025 1:30 PM EST Clinical Support [address] [address] 02/26/2025 11:30 AM EST Medication Management [address] [address] Yu Busby PharmD [address] [place] [address] documented as of this encounter Visit Diagnoses Not on filedocumented in this encounter Care Teams Sewing Machine Operator Semiautomatic Relationship Specialty Start Date End Date Angelique Grace DO [address] [place] [address] PCP - General Family Medicine 03/14/18 Castillo Pradhan PharmD [address] [place] [address] Pharmacist Internal Medicine 07/22/22 11/02/22 Yu Busby PharmD [address] [place] [address] Pharmacist Internal Medicine 11/03/22 documented as of this encounter
--- OUTSIDE RECORDS SUMMARY | 2025-01-31 19:06 | XMS_ITS | Encounter Summary ---
Author Organization [employer] Address [address] [facility] 7t [place] [address] Care Team Providers Care Business Applications Developer Name Role Phone Angelique Grace DO Primary Care Provider [phone] Yu Busby PharmD Unavailable [phone] Reason for Visit * Reason Onset Date Comments Nurse Triage 01/12/2024 Encounter Details Date Type Department Care Team (Late st Contact Info) Description 01/12/2024 Telephone [facility] MEDICINE [address] [place] [address] Angelique Grace DO [address] [place] [address] Nurse Triage Social History Tobacco Use Types [...] 01/12/2024 11:28 AM EDT Called pt. Via [employer]. Pt. States that she is having numbness in both hands when she sleeps at night and when she uses her tablet. Pt. States she called to make an appt. With [facility] [address] [place] [address] -Fax number [phone] or [phone] DX. Arthralgias but, they told her that [...] Description 02/04/2025 2:30 PM EST Clinical Support [address] [address] 02/14/2025 1:30 PM EST Clinical Support [address] [address] 02/26/2025 11:30 AM EST Medication Management [address] [address] PuiaYu, PharmD [address] [place] [address] documented as of this encounter Goals Goal Patient Goal Type Associated Problems Recent Progress Patient-Stated? Author Smoking cessation General No PuiaCorneliasa, PharmD Hemoglobin A1c < 7 Result Component 9(01/31/2025 2:15 PM EST) No Castillo Pradhan, PharmD Record your blood sugar as directed Result Component No Yu Busby, PharmD documented as of this encounter Visit Diagnoses Not on filedocumented in this encounter Additional Health Concerns Assessment Noted Time PHQ-9 Depression Total Score: 0 06/09/19 23 11:27 AM EDT documented as of this encounter Care Teams Business Applications Developer Relationship Specialty Start Date End Date Angelique Grace DO [address] [place] [address] PCP - General Family Medicine 03/14/18 PuiaCorneliasa, PharmD [address] [place] [address] Pharmacist Internal Medicine 11/03/22 documented as of this encounter
--- OUTSIDE RECORDS SUMMARY | 2025-01-31 19:06 | XMS_ITS | Encounter Summary ---
Author Organization [employer] Address [address] [facility] 7t [place] [address] Care Team Providers Care Mold Burner Name Role Phone Angeliqeu Grace DO Primary Care Provider [phone] DelCastillo clements PharmD Unavailable Unavail able Yu Busby PharmD Unavailable [phone] Reason for Visit * Reason Comments Med Refill Encounter Details Date Type Department Care Team (Late st Contact Info) Description 06/02/2022 Refill [facility] MEDICINE [address] [place] [phone] Yulisa Cedillo MD [address] [place] [address] Primary hypertension Social History Tobacco Use Types [...] Description 02/04/2025 2:30 PM EST Clinical Support [address] [address] 02/14/2025 1:30 PM EST Clinical Support [address] [address] 02/26/2025 11:30 AM EST Medication Management [facility] MED[facility]INE [address] [facility] [place] [address] Yu Busby PharmD [address] [facility] [place] [address] documented as of this encounter Visit Diagnoses Diagnosis Primary hypertension Unspecified essential hypertension documented in this encounter Care Teams Mold Burner Relationship Specialty Start Date End Date Angelique Grace DO [address] [facility] [place] [address] PCP - General Family Medicine 03/14/18 Castillo Pradhan PharmD [address] [facility] [place] [address] Pharmacist Internal Medicine 07/22/22 11/02/22 Yu Busby, Radha [address] [facility] [place] [address] Pharmacist Internal Medicine 11/03/22 documented as of this encounter
--- OUTSIDE RECORDS SUMMARY | 2025-01-31 19:06 | XMS_ITS | Encounter Summary ---
Author Organization [employer] Address [address] [facility] 7t [place] [address] Care Team Providers Care Color Maker Formulator Name Role Phone Angelique Grace DO Primary Care Provider [phone] uY Busby PharmD Unavailable [phone] Encounter Details Date Type Department Care Team (Latest Contact Info) Description 01/29/2025 Travel Social History Tobacco Use Types Packs/Day [...] 02/04/2025 2:30 PM EST Clinical Support [address] [address] 02/14/2025 1:30 PM EST Clinical Support [address] [address] 02/26/2025 11:30 AM EST Medication Management [address] [address] Yu Busby, PharmD [address] [place] [address] documented as of this encounter Goals Goal Patient Goal Type Associated Problems Recent Progress Patient-Stated? Author Smoking cessation General No Yu Busby, PharmD Hemoglobin A1c < 7 Result Component 9(01/31/2025 2:15 PM EST) No Castillo Pradhan PharmD Record your blood sugar as directed Result Component No Yu Busby PharmD Help patients manage their type 2 diabetes Care Plan Help patients manage their type 2 diabetes No Okhipo, Nannette, TESTING CONSULTANT Weekly blood pressure task Care Plan Weekly blood pressure task No Okhipo, Nannette, TESTING CONSULTANT Help patients manage their type 2 diabetes Care Plan Help patients manage their type 2 diabetes No Okhipo, Nannette, TESTING CONSULTANT Patient has chronic kidney disease Care Plan Patient has chronic kidney disease No Okhipo, Nannette, TESTING CONSULTANT Weekly blood pressure task Care Plan Weekly blood pressure task No Okhipo, Nannette, TESTING CONSULTANT Patient has chronic kidney disease Care Plan Patient has chronic kidney disease No Okhipo, Nannette, TESTING CONSULTANT Weekly blood pressure task Care Plan Weekly blood pressure task No PuiaDarrynYu, PharmD Weekly blood pressure task Care Plan Weekly blood pressure task No Puia Yu, PharmD Patient has chronic kidney disease Care Plan Patient has chronic kidney disease No Puia Yu, PharmD Patient has chronic kidney disease Care Plan Patient has chronic kidney disease No Darryn Busbyyssa, PharmD Weekly blood pressure task Care Plan Weekly blood pressure task No Rosalia Austin RN Weekly blood pressure task Care Plan Weekly blood pressure task No Rosalia Austin RN Patient has chronic kidney disease Care Plan Patient has chronic kidney disease No Rosalia Austin RN Patient has chronic [...] as of this encounter Care Teams Color Maker Formulator Relationship Specialty Start Date End Date Angelique Grace DO [address] [place] [address] PCP - General Family Medicine 03/14/18 Yu Busby PharmD [address] [place] [address] Pharmacist Internal Medicine 11/03/22 documented as of this encounter
--- OUTSIDE RECORDS SUMMARY | 2025-01-31 19:06 | XMS_ITS | Encounter Summary ---
Author Organization [employer] Address [address] [facility] 7t [place] [address] Care Team Providers Care Oil Field Pipeline Supervisor Name Role Phone Angelique Grace DO Primary Care Provider [phone] Yu Busby PharmD Unavailable [phone] Reason for Visit * Reason Comments Med Refill Encounter Details Date Type Department Care Team ([facility] st Contact Info) Description 01/05/2023 Refill [facility] MEDICINE [address] [place] [address] Shea Balderas MD [address] [place] [address] Social History Tobacco Use Types Packs/Day Years [...] Description 02/04/2025 2:30 PM EST Clinical Support [address] [address] 02/14/2025 1:30 PM EST Clinical Support [address] [address] 02/26/2025 11:30 AM EST Medication Management [address] [address] PuiaYu, PharmD [address] [place] [address] documented as of this encounter Goals Goal [...] as of this encounter Care Teams Oil Field Pipeline Supervisor Relationship Specialty Start Date End Date Angelique Grace DO [address] [place] [address] PCP - General Family Medicine 03/14/18 Puia, Yu, PharmD [address] [place] [address] Pharmacist Internal Medicine 11/03/22 documented as of this encounter
--- OUTSIDE RECORDS SUMMARY | 2025-01-31 19:06 | XMS_ITS | Clinical Summary ---
Author Organization [facility] Address [address] [facility] [address] [place] [phone] Phone Care Team Providers Care Natural Resources Specialist Name Role Phone Angelique Grace Primary Care Provider [phone] Allergies Active Allergy Reactions Criticality Noted Date [...] on file Insurance ACO ACO Care Teams Natural Resources Specialist Relationship Specialty Start Date End Date Angelique Grace DO [address] [place] [address] [place] [address] PCP - General Family Medicine 08/02/23 Additional Source Comments The information contained in this document represents components of the legal health record. It is not the complete legal health record.[facility]
--- OUTSIDE RECORDS SUMMARY | 2025-01-31 19:06 | XMS_ITS | Clinical Summary ---
Author Organization [email or web address] Address [address] [place] [address] Care Team Providers Care Manager Desktop Name Role Phone Angelique Grace DO Primary Care Provider Yu Busby PharmD Unavailable [phone] Allergies Active Allergy Reactions Criticality Noted [...] complication, with long-term current use of insulin ([facility]) USE DIRECTED FOUR TIMES A DAY FOR BLOOD SUGAR TESTING AND INSULIN INJECTION 200 each 025 Active glucose blood (FREESTYLE LITE) test stripIndications: Type 2 diabetes mellitus without complication, with long-term current use of insulin ([facility]) Test blood sugars three times a day 100 each 025 Active TRUEplus Lancets 33G miscIndications:T ype 2 diabetes mellitus without complication, with long-term current use of insulin ([facility]) Use to test blood sugar 3 time(s) daily 100 each 025 Active dapagliflozin (Farxiga) 10 MGIndications:Typ e 2 diabetes mellitus without complication, with long-term current use of insulin ([facility]) TAKE ONE TABLET BY MOUTH EVERY DAY IN THE MORNING 30 tablet 025 Active diphenhydrAMINE (BENADryl) 25 MG capsuleIndication [...] complication, with long-term current use of insulin ([facility]) Take 1 tablet (81 mg) by mouth in the morning. 90 tablet 3 025 Active meloxicam (Mobic) 15 MG tablet TAKE ONE TABLET BY MOUTH EVERY DAY NEEDED FOR MILD TO MODERATE PAIN 30 tablet 2 Active cyanocobalamin (Vitamin B-12) 1000 MCG tablet Take 1 tablet (1,000 mcg) by mouth every other day. 45 tablet 3 025 2025 Active Diclofenac Sodium (Arthritis Pain Reliever) 1 % gelIndications:Pa in APPLY 2 GRAMS TOPICALLY TO THE PAINFUL AREAS FOUR TIMES A DAY IF NEEDED FOR PAIN 100 g 3 Active pregabalin (Lyrica) 100 MG capsuleIndication s:Neuropathy TAKE ONE CAPSULE BY MOUTH THREE TIMES A DAY 90 capsule 1 Active cetirizine (ZyrTEC) 10 MG tablet Take [...] BY MOUTH EVERY DAY 90 tablet 1 025 Active amLODIPine (Norvasc) 5 MG tabletIndications :Primary hypertension TAKE 1.5 TABLETS BY MOUTH ONCE DAILY 135 tablet 3 Active Blood Pressure kitIndications:El evated blood pressure reading in office with diagnosis of hypertension 1 Units 2 times daily. 1 kit Active Continuous Glucose Solar Technician (FreeStyle Krysta 3 [place]) deviceIndications :Type 2 diabetes mellitus without complication, with long-term current use of insulin (HCC) 1 each Once per day. Use as directed for CGM 1 each 025 Active Continuous Glucose Sensor (FreeStyle Krysta 3 Plus Sensor) miscIndications:T ype 2 diabetes mellitus without complication, with long-term current use of insulin ([facility]) Apply 1 every 15 days as directed for CGM 2 each 025 Active glucose blood (FreeStyle Precision Yoel Test) test stripIndications: Type 2 diabetes mellitus without complication, with long-term current use of insulin ([facility]) Use to test blood sugar 3 times daily in case of CGM failure or extremes of BG 100 each 11 025 Active insulin pen needle (B-D ULTRAFINE III SHORT PEN) 31G X 8 mm miscIndications:T ype 2 diabetes mellitus without complication, with long-term current use of insulin ([facility]) Use once daily for insulin injection 100 each 3 025 Active insulin glargine (Toujeo SoloStar) 300 UNIT/ML injectionIndicati ons:Type 2 diabetes mellitus without complication, with long-term current use of insulin ([facility]) Inject 70 Units under the skin in the morning. 9 mL 2 Active Dulaglutide (Trulicity) 0.75 MG/0.5ML solution auto-injectorIndi cations:Type 2 diabetes mellitus without complication, with long-term current use of insulin ([facility]) Inject 0.75 mg under the skin 1 (one) time per week. 2 mL Active amLODIPine (Norvasc) 5 MG tabletIndications :Primary hypertension TAKE 1 & 1/2 TABLETS BY MOUTH EVERY DAY 135 tablet 3 024 2024 Discontinued insulin pen needle (B-D ULTRAFINE III SHORT PEN) 31G X 8 mm miscIndications:T ype 2 diabetes mellitus without complication, with long-term current use of insulin ([facility]) Use once daily for insulin injection 100 each 3 025 2024 Discontinued(R quang (will not trigger notification to Pharmacy)) rosuvastatin (Crestor) 40 MG tabletIndications :Type 2 diabetes mellitus without complication, with long-term current use of insulin ([facility]),Other hyperlipidemia Take 1 tablet (40 mg) by mouth Once per day. 90 tablet 1 025 2024 Discontinued Semaglutide,0.25 or 0.5MG/DOS, (Ozempic, 0.25 or 0.5 MG/DOSE,) 2 MG/3ML solution pen-injectorIndic ations:Type 2 diabetes mellitus without complication, with long-term current use of insulin (HCC) Inject 0.5 mg under the skin 1 (one) time per week. 3 mL 11 08/14/ 025 2024 Discontinued(S ben effects) insulin glargine (Toujeo SoloStar) 300 UNIT/ML injectionIndicati ons:Type 2 diabetes mellitus without complication, with long-term current use of insulin (HCC) Inject 66 Units under the skin in the morning. Increase, as directed, up to a max of 82 units per day. 9 mL 5 025 2024 Discontinued(R eorder (will not trigger notification to Pharmacy)) Dulaglutide (Trulicity) 0.75 MG/0.5ML solution auto-injectorIndi cations:Type 2 diabetes mellitus without complication, with long-term current use of insulin (HCC) Inject 0.75 mg under the skin 1 (one) time per week. 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 Plantar fasciitis, bilateral 10/24/2024 Assessment & Plan (10/24/2024 5:50 PM EDT): Patient will be referred to tennis centre manager Pharyngitis 06/05/2024 Assessment & Plan (06/05/2024 9:57 [...] Encounters Date Type Department Care Team Description 01/31/2025 Telephone [facility] [address] [place] [phone] Yu Busby, PharmD Prior Authorization (Krysta 3 CGM reader & 3 plus sensors ) 01/31/2025 Orders Only GENERIC EXTERNAL DATA DEPARTMENT Provider, Generic External Data 01/31/2025 Travel 01/29/2025 3:00 PM EST Immunization [facility] [address] [place] [address] Rosalia Austin, MAGDA Encounter for immunization 01/29/2025 Travel 01/28/2025 2:45 PM EST Office Visit [facility] [address] [place] [address] Nannette Daigle FNP Encounter for physical examination (Primary Dx); Type 2 diabetes mellitus without complication, with long-term current use of insulin (HCC); Elevated blood pressure reading in office with diagnosis of hypertension 01/28/2025 Travel 01/14/2025 Telephone [facility] [address] [place] [phone] Angelique Grace DO Referral 01/08/2025 Refill [facility] [address] [place] [phone] Angelique Grace DO Primary hypertension 01/08/2025 Telephone [facility] [address] [place] [address] Angelique Grace DO Chart Prep 01/08/2025 Telephone [facility] [address] [place] [address] Angelique Grace DO 01/06/2025 Refill [facility] [address] [place] [phone] Angelique Grace DO Type 2 diabetes mellitus without complication, with long-term current use of insulin (HCC); Other hyperlipidemia 01/02/2025 Telephone [facility] [address] [place] [phone] Angelique Grace DO Medication Question 01/02/2025 Patient Outreach [address] [address] Angelique Grace DO Pre-visit Planning (Pre visit planning LVM ) 01/01/2025 Orders Only [facility] [address] [place] [phone] Angelique Grace DO Type 2 diabetes mellitus without complication, with long-term current use of insulin (HCC) (Primary Dx) 12/21/2024 Telephone [facility] [address] [place] [address] Angelique Grace, Referral 12/18/2024 1:45 PM EDT Office Visit [facility] OPTOMET[facility] [address] [place] [address] Sourav, Viv, OD Presbyopia (Primary Dx) 12/17/2024 Telephone [facility] [address] [place] [address] Angelique Grace, 12/11/2024 Telephone [facility] [address] [place] [address] Angelique Grace, Referral 12/11/2024 Refill [facility] [address] [place] [address] Angelique Grace, 12/04/2024 6:40 PM EDT Office Visit [facility] [address] [place] [address] Palma Felix, PAUL Non-cardiac chest pain (Primary Dx) 12/04/2024 Travel 11/29/2024 Telephone [facility] [address] [place] [address] Angelique Grace, 11/16/2024 Refill [facility] [address] [place] [address] Angelique Grace, Chronic sacroiliac pain (Primary Dx) 11/07/2024 Travel from Last 3 Months Immunizations Immunization Administration Dates Next Due Hep A, Adult 10/11/2017,12/21/2006 Hep B, adult 11/10/2016, 7,03/02/2016,04/22,03/24/2009,12/21/2006 Influenza injectable quadriv alent IIV4 with preservative 12/08/2017,12/23/2014 Influenza injectable quadriv alent preservative free 02/09/2023,01/12/2022,01/29/2021,12/26,12/21/2018,12/28/2016,12/25/2015 Influenza, IIV3, injectable 12/14/2013,1 ,11/21/2009,11/29,12/29/2007,12/01/2006,02/02/2006 ,02/09/2005,02/13/2004,01/05/2002,12/12,12/30/1999 Influenza, Split (incl. portillo fied surface antigen) 12/01/2012,12/16/2011 Influenza, seasonal, injecta ble, preservative free 01/29/2025,11/29/2023 Moderna Covid-19 Vaccine 12+ 06/05/2021,08/16/19 21,07/18/2020 Moderna Covid-19 Vaccine 6+ Bivalent 06/08/2022 Pfizer Covid-19 Vaccine 12+ 01/29/2025,,02/09/2023 Pneumococcal Conjugate PCV 20 06/07/2023 Pneumococcal Polysaccharide [...] Sign Reading Time Taken Comments Blood Pressure 122/70 01/31/2025 12:05 PM EST Pulse 90 01/28/2025 3:10 PM [...] Mass Index 32.93 01/28/2025 3:10 PM EST Plan of Treatment Upcoming Encounters Date Type Department Care Team (Late st Contact Info) Description 02/04/2025 2:30 PM EST Clinical Support [facility] [address], [place] [phone] 02/14/2025 1:30 PM EST Clinical Support [facility] [place] [address] 02/26/2025 11:30 AM EST Medication Management [facility] [address] [place] [address] Yu Busby, PharmD [address] [place] [address] Health Maintenance Due Date Last Done Comments CT Colonography 1970 Colonoscopy 1970 Colorectal Cancer Screening 1970 FIT DNA/Cologuard 1970 FIT 1970 FOBT 1970 Sigmoidoscopy 1970 Diabetes: Foot Exam 1980 RSV Patients and Patients Aged 60 years or older (1 - Risk 50-74 years 1-dose series) 2020 Mammogram 03/21/2025 03/21/2024, 05/2023, 03/10/2022, Additional history exists Diabetes: Hemoglobin A1C 05/03/2025 025, 01/28/2025, 11/07/2024, Additional history exists Alcohol/Substance Use Screening 07/04/2025 07/04/2024 Depression Screening 07/04/2025 07/04/2024, 07/05/19 Disability Screening 07/04/2025 07/04/2024 SDOH Screening 07/04/2025 07/04/2024 Diabetes: Urine Protein Screening 08/30/2025 08/30/2024, 08/30/2024, 01/06/2024, Additional history exists Lipid Panel 08/30/2025 08/30/2024, 06/13, 05/08/2024, Additional history exists Eye Exam 10/22/2025 10/22/2024, 10/12, 10/22/2024, Additional history exists Tobacco Screening 01/28/2026 01/28/2025 Cervical Cancer Screening 04/02/2027 HPV/Cotest 04/02/2027 04/02/2022 Pap Smear 04/02/2027 04/02/2022, 09/11/2020 DTaP/Tdap/Td Vaccines (3 - Td or Tdap) 11/20/2032 11/20/2022, 03/01/2013, 01/16/1998, Additional history exists Hepatitis B Vaccines Completed 11/10/2016, 06/02/2016, 03/02/2016, Additional history exists Hepatitis A Vaccines Completed 10/11/2017, 12/22/19 Zoster Vaccines Completed 06/25/2021, 04/20/2021 Pneumococcal Vaccine: 50+ Years Completed 06/07/2023, 02/05/2014, 05/10/2007, Additional history exists HIV Screening Completed 07/04/2024, 12/13, 09/29/2022, Additional history exists Hepatitis C Screening Completed 07/04/2024 , 01/06/2024, 09/29/2022, Additional history exists COVID-19 Vaccine Completed 01/29/2025, , 02/09/2023, Additional history exists Influenza Vaccine Completed 01/29/2025, , 02/09/2023, Additional history exists HIB Vaccines Aged Out [...] blood sugar as directed Result Component No uY Busby PharmD Help patients manage their type 2 diabetes Care Plan Help patients manage their type 2 diabetes No Nannette Daigle FNP Weekly blood pressure task Care Plan Weekly blood pressure task No Okhipo, Nannette, AIR DEFENSE [employer]OL OFFICER Help patients manage their type 2 diabetes Care Plan Help patients manage their type 2 diabetes No Okhipo, Nannette, AIR DEFENSE CONTROL OFFICER Patient has chronic kidney disease Care Plan Patient has chronic kidney disease No Okhipo, Nannette, AIR DEFENSE CONTROL OFFICER Weekly blood pressure task Care Plan Weekly blood pressure task No Okhipo, Nannette, AIR DEFENSE CONTROL OFFICER Patient has chronic kidney disease Care Plan Patient has chronic kidney disease No Okhipo, Nannette, AIR DEFENSE CONTROL OFFICER Weekly blood pressure task Care Plan Weekly [...] Care Plan Weekly blood pressure task No Arlin Trevinoandra Weekly blood pressure task Care Plan Weekly blood pressure task No Uriel, Aleida Patient has chronic kidney disease Care Plan Patient has chronic kidney disease No Uriel, Aleida Patient has chronic kidney [...] chronic kidney disease No Puia, Yu, PharmD Procedures Procedure Name Priority Date/Time Associated Diagnosis Comments T4, FREE Routine 01/31/2025 2:15 PM EST TSH Routine 01/31/2025 2:15 PM EST COMPREHENSIVE METABOLIC PANEL Routine 01/31/2025 2:15 PM EST PROTHROMBIN TIME-INR Routine 01/31/2025 2:15 PM EST CBC Routine 01/31/2025 2:15 PM EST VITAMIN D,25-OH,TOTAL,IA Routine 01/31/2025 2:15 PM EST Hypersomnia Other fatigue VITAMIN B12/FOLATE, SERUM PANEL Routine 01/31/2025 2:15 PM EST Hypersomnia Other fatigue HEMOGLOBIN A1C Routine 01/31/2025 2:15 PM EST Hypersomnia Other fatigue COMPREHENSIVE METABOLIC PANEL Routine 01/31/2025 2:15 PM EST Hypersomnia Other fatigue POCT GLYCATED HEMOGLOBIN, TOTAL Routine 01/28/2025 3:13 PM EST Type 2 diabetes mellitus without complication, with long-term current use of insulin ([facility]) POCT GLUCOSE Routine 01/28/2025 3:12 PM EST Type 2 diabetes mellitus without complication, with long-term current use of insulin ([facility]) ECG 12-LEAD Routine 12/04/2024 7:38 PM EDT Non-cardiac chest pain POCT GLYCATED HEMOGLOBIN, TOTAL Routine 11/07/2024 2:43 PM EDT Type 2 diabetes mellitus without complication, with long-term current use of insulin ([facility]/HCC) LIPID PANEL, STANDARD Routine 08/30/2024 2:34 PM [...] Results * Vitamin D, 25-Hydroxy, Total, Immunoassay (01/31/2025 2:15 PM EST) Vitamin D 25-OH Total 58.6 >30 ng/mL [facility] Comment: Health Based Reference Values*< 20 ng/mL [id number] ng/mL Insufficient> 30 ng/mL Sufficient*Fish PEREZ. N Engl J Med. 2007;357:266-280There is [...] Vitamin D results fromdifferent laboratories and methodologies. Published datademonstrated that results from patients undergoinghemodialysis may show a negative bias when tested withvarious automated 25-OH vitamin D assays when compared toLC-MS/MS.When testing samples from patients whose predominant form ofVitamin D is Vitamin D2, such as patients receiving VitaminD2 supplementation, results that are subtherapeutic shouldbe confirmed with another method such as LC-MS/MS. Blood Venous blood specimen / Unknown 01/31/2025 2:15 PM EST 01/31/2025 3:51 PM EST us Shea Thrasher MD LAB BLOOD ORDERABLES Final Result [facility] [address] [place] [phone] * Vitamin B12/Folate, Serum Panel (01/31/2025 2:15 PM EST) Vitamin B12 620 200 - 900 pg/mL [facility] Comment:NORMAL 200-900 PG/ML INDETERMINATE 160-199 PG/ML DEFICIENT < 160 PG/ML Folate 15.5 > or = 4.0 ng/mL [facility] Comment:Reference Values:> o r = 4.0 ng/mL< 4.0 ng/mL suggests folate deficiency Methotrexate, aminopterin and folinic acid(leucovorin) are chemotherapeutic agents whose molecularstructures are similar to folate; therefore, the Architectfolate assay cannot be used for patients using these drugs. Blood Venous blood specimen / Unknown 01/31/2025 2:15 PM EST 01/31/2025 3:51 PM EST us Shea Thrasher MD LAB BLOOD ORDERABLES Final Result [facility] [address] [place] [phone] * Prothrombin Time-INR (01/31/2025 2:15 PM EST) Pathologist [facility] Prothrombin Time 12.5 11.2 - 13.5 SEC [facility] INTERNATIONAL NORM RATIO 1.0 0.9 - 1.1 [facility] Comment:INTERNATIONAL NORMAL IZED RATIO (INR) [...] Provider LAB BLOOD ORDERAB LES Final Result [facility] [address] [place], [place] [phone] * CBC (01/31/2025 2:15 PM EST) White Blood Count 4.8 4.8 - 10.8 X10*3/uL [facility] Red Blood Count 4.90 4.20 - 5.50 X10*6/uL [facility] Hemoglobin 14.2 12.0 - 16.0 g/dl [facility] Hematocrit 43.7 37.0 - 47.0 % [facility] Mean Corpuscular Volume 89.2 80.0 - 98.0 fL [facility] Mean Corpuscular Hemoglobin 29.0 27.0 - 33.0 pg [facility] Mean Corpuscular HGB Conc 32.5 31.0 - 35.0 g/dl [facility] Red Cell Distribution Width 13.4 11.0 - 16.0 % [facility] Platelet Count 199 160 - 400 X10*3/uL [facility] Mean Platelet Volume 11.2 9.4 - 12.3 fL [facility] NRBC Pct Auto 0.0 0.0 - 0.2 /100WBC [facility] NRBC Abs Auto 0.000 0.0 - 0.012 X10*3/uL [facility] 01/31/2025 2:15 PM EST 01/31/2025 3:51 PM EST us Generic External Data Provider LAB BLOOD ORDERAB LES Final Result Performing Organization Address City/[facility]/ZIP Co de Phone Number [facility] [address] [place] [address] [phone] * (ABNORMAL) TSH (01/31/2025 2:15 PM EST) Thyroid Stimulating Hormone 0.25(L) 0.32 - 4.0 uIU/mL [facility] Comment:TSH 3rd Generation ( [facility]) 01/31/2025 2:15 PM EST 01/31/2025 3:51 PM EST us Generic External Data Provider LAB BLOOD ORDERAB LES Final Result Performing Organization Address City/[facility]/ZIP Co de Phone Number [facility] [address] [place] [phone] * T4, Free (01/31/2025 2:15 PM EST) Free T4 (Free Thyroxine) 0.76 0.71 - 1.85 ng/dL [facility] 01/31/2025 2:15 PM EST 01/31/2025 3:51 PM EST Generic External Data Provider LAB BLOOD ORDERAB LES Final Result Performing Organization Address [facility]UST Co de Phone Number [facility] [address] [place] [phone] * (ABNORMAL) Hemoglobin A1c (01/31/2025 2:15 PM EST) Hemoglobin A1c 9.0(H) <6.0 % [facility] Comment:Hemoglobin A1C Refer ence Range Adults: 4.8 - 6.0 % Non diabetic: < 6.0 % Goal: < 7.0 %Additional Action Suggested: > 8.0 %Note: Hemoglobin A1c results are invalid for patients with abnormal amounts of HbF. Blood transfusions may impact the HbA1c concentration in the patient sample. Estimated Average Glucose 212 mg/dL [facility] Comment:eAG = Estimated ave rage glucose which is %A1C expressed asaverage glucose, using the formula of the E1U-IoezhxxCeuesym Glucose study (ADAG), Diabetes Care, Vol.31,#8,2007 Blood Venous blood specimen / Unknown 01/31/2025 2:15 PM EST 01/31/2025 3:51 PM EST Shea Thrasher MD LAB BLOOD ORDERABLES Final Result [facility] [address] [place] [phone] * (ABNORMAL) Comprehensive Metabolic Panel (01/31/2025 2:15 PM EST) Only the most recent of2 resultswithin the time period is included. Sodium 143 135 - 145 mmol/L [facility] Potassium 4.3 3.3 - 5.1 mmol/L [facility] Chloride 107 96 - 108 mmol/L [facility] Carbon Dioxide 28 22 - 29 mmol/L [facility] Anion Gap 12 12 - 20 [facility] Urea Nitrogen (BUN) 19(H) 9 - 16 mg/dL [facility] Creatinine, Serum 0.63 0.5 - 1.4 mg/dL [facility] Estimated Glomerular Filt Rate >60 [facility] Comment:Chronic Kidney Disea se: Estimated GFR < 60 mL/min/1.05a0Ptnddn Kidney Disease: Estimated GFR < 15 mL/min/1.73m2 Glucose 119(H) 60 - 115 mg/dL [facility] Calcium 9.6 8.4 - 10.2 mg/dL [facility] Bilirubin, Total 0.3 0.0 - 1.0 mg/dL [facility] Aspartate Amino Transferase 29 5 - 31 U/L [facility] Alanine Aminotransferase 33(H) 0 - 31 U/L [facility] Total Protein 7.8 6.5 - 8.0 g/dL [facility] Albumin Level 4.5 3.5 - 5.0 g/dL [facility] Alkaline Phosphatase 66 39 - 117 U/L [facility] 01/31/2025 2:15 PM EST 01/31/2025 3:51 PM EST us Generic External Data Provider LAB BLOOD ORDERAB LES Final Result Performing Organization Address City/[facility]/ZIP Co de Phone Number [facility] [address] [place] [address] [phone] * (ABNORMAL) POCT Hgb A1c (01/28/2025 3:13 PM EST) Only the most recent of2 resultswithin the time period is included. Pathologist [facility] Hemoglobin A1C 9.0(A) 4.0 - 5.7 % QC Media Lot # [id number] Lot# Expiration Date , Blood 01/28/2025 3:13 PM EST [facility] POINT OF CARE TEST ENTER/EDIT ORDERABLES Final Result * (ABNORMAL) POCT Glucose (01/28/2025 3:12 PM EST) [facility] Glucose Blood, POC 273(A) 60 - 200 mg/dL QC Media Lot # [id number] Lot# Expiration Date 554, Blood Capillary blood specimen / Unknown 01/28/2025 3:12 PM EST [facility] POINT OF CARE TEST ENTER/EDIT ORDERABLES Final Result * ECG 12 lead (12/04/2024 7:38 PM EDT) Narrative Palma Felix FNP - 12/04/2024 7:38 PM EDT Sinus rhythm P/RI: 108/144 ms QRS: 112 ms QT/Qtc: 404/460 ms P/QRS/T axis: 33/16/24 deg Heart rate: 78 bpm Palma Felix [facility] ECG ORDERABLES Final Result * Lipid Panel, Standard (08/30/2024 2:34 PM EDT) Pathologist [facility] Triglycerides 148 <150 mg/dL [facility] Comment:Desirable Triglyceri de: less than 150 mg/dLBorderline High Triglyceride 150-199 mg/dLHigh Triglyceride: 200-499 mg/dLVery High Triglyceride: greater than or equal to 5OO mg/dL Cholesterol 140 <200 mg/dL [facility] Comment:Desirable Cholestero l: less than 200 mg/dLBorderline High Cholesterol: 200-239 mg/dLHigh Cholesterol: greater than 239 mg/dL LDL Cholesterol Calculated 56 <100 mg/dL [facility] Comment:Desirable LDL: less than 100 mg/dLNear Optimal/Above Optimal LDL: 110- 129 mg/dLBorderline High LDL: 130-159 mg/dLHigh LDL: 160-189 mg/dLVery High LDL: greater than or equal to 190 mg/dL HDL Cholesterol 55 >40 mg/dL [facility] Comment:Desirable HDL: great er than 40 mg/dL Note: This HDL assay may give artificially low results in patients with liver disease. 08/30/2024 2:34 PM EDT 08/30/2024 2:34 PM EDT us Angelique Grace DO LAB BLOOD ORDERABLES Final R esult Performing Organization Address [facility] de Phone Number [facility] [address] [place] [phone] * Albumin, Random Urine W/Creatinine (08/30/2024 2:30 PM EDT) Creatinine, Urine 166.93 mg/dL [facility] Microalbumin Urine 46.0 mg/L [facility] Microalbum Creatinine Ratio Ur 27.5 <30 ug/mg cr [facility] Comment:Albumin/Creatinine R atio Reference Ranges: Normal: < 30 ug/mg creatinine Microalbuminuria: 30 - 300 ug/mg creatinineClinical Albuminuria: > 300 ug/mg creatinine Urine (Urine, Random) 08/30/2024 2:30 PM EDT 08/30/2024 3:13 PM EDT Angelique Grace DO LAB URINE ORDERABLES Final R esult Performing Organization Address [facility] Co de Phone Number [facility] [address] [place] [phone] * Hepatitis C Antibody with Reflex to HCV, RNA, Quantitative, Real-Time PCR (07/04/2024 12:07 PM EDT) Hepatitis C Antibody Nonreactive Nonreactive [facility] Comment:Antibodies to HCV no t detected; does not exclude early acuteHCV infection. Blood Venous blood specimen / Unknown 07/04/2024 12:07 PM EDT 07/04/2024 1:08 PM EDT Angelique Grace DO LAB BLOOD ORDERABLES Final R esult Performing Organization Address City/[facility]/ZIP Co de Phone Number [facility] [address] [place] [phone] * HIV-1/2 Antigen and Antibodies, Fourth Generation, with Reflexes (07/04/2024 12:07 PM EDT) HIV AB/AG Nonreactive Nonreactive [facility] Comment:HIV-1 p24 Ag and/or HIV-1/HIV-2 Ab not detected.A test result that is nonreactive does not exclude thepossibility of exposure to or infection with HIV-1 and/orHIV-2. Nonreactive results in this assay for individualswith prior exposure to HIV-1 and/or HIV-2 may be due toantigen and antibody levels that are below the limit ofdetection of this assay.The [employer] HIV Ag/Ab Combo assay result andsupplemental assay results should be interpreted inconjunction with the patient's clinical presentation,history and other laboratory results. If the results areinconsistent with clinical evidence, additional testing issuggested to confirm the result. Blood Venous blood specimen / Unknown 07/04/2024 12:07 PM EDT 07/04/2024 1:08 PM EDT Angelique Grace [employer] LAB BLOOD ORDERABLES Final R esult Performing Organization Address City/[facility]/ZIP Co de Phone Number [facility] [address] [place] [address] [phone] * BI Mammogram Screening Tomosynthesis Bilateral (03/21/2024 2:15 PM EST) Anatomical Region Laterality Modality Breast Bilateral Mammography 03/21/2024 2:15 PM EST Narrative 03/28/2024 9:29 AM EST [facility] [address] [place] [address] Mammography Report Signed Patient: Maria C Lewis MR#: [id number] : 1970 Acct:[id number] Age/Sex: 53 / F ADM Date: 03/21/24 Loc: HO.MAMMO Attending Dr: Angelique Grace DO Ordering Physician: Angelique Grace DO Results: 1N egative Date of Service: 03/21/24 Follow Up: 1 Year From Orig inal Mammogram Procedure(s): MM tomosynthesis screening BI Accession Number(s): [id number] cc: Angelique Grace DO EXAMINATION: MM SCREENING [...] 03/28/24 0926 DD/ 1415 TD/TT: 03/21/24 1442 Tug Boat Engineer: Procedure Note Donotuseinterpreter, Image - 03/28/2024 [facility] [address] [place], [place] [address] Mammography Report Signed Patient: Maria C LewisMR#: [id number] : 1970Acct:[id number] Age/Sex: 53 / FADM Date: 03/21/24 Loc: HO.MAMMO Attending Dr: Angelique Grace DO Ordering Physician: Angelique Graceults: 1N egative Date of Service: 03/21/24Follow Up: 1 Year From Orig inal Mammogram Procedure(s): MM tomosynthesis screening BI Accession Number(s): [id number] cc: Angelique Grace DO EXAMINATION: MM SCREENING [...] 03/28/24 0926 DD/ 1415 TD/TT: 03/21/24 1442 Tug Boat Engineer: Angelique Grace DO IMG BI PROCEDURES Final Resu lt * Hm Pap Smear (04/02/2022) Pap Negative for intraephithelial lesion or malignancy Negative for intraephithelial lesion or malignancy, Other HPV Undetected Undetected, Indeterminate, Quantitative, Not Detected Historical Provider HEALTH MAINTENANCE Final Result from Last 3 Months or Most Recently Relevant to Health Maintenance Additional Health Concerns Active Problems Noted Date [...] 01/31/2025 Patient has chronic kidney disease 01/31/[address] [place] [place] [address] C3 Care Teams Manager Desktop Relationship Specialty Start Date End Date Angelique Grace DO [address] [place] [address] PCP - General Family Medicine 03/14/18 Yu Busby PharmD [address] [place] [address] Pharmacist Internal Medicine 11/03/22
--- OUTSIDE RECORDS SUMMARY | 2025-01-31 19:06 | XMS_ITS | Encounter Summary ---
Author Organization [employer] Address [address] [facility] 7t [place] [address] Care Team Providers Care Clerical Investigator Name Role Phone Angelique Grace DO Primary Care Provider +1- [phone] Yu Busby PharmD Unavailable [phone] Reason for Visit * Reason Comments Med Refill Encounter Details Date Type Department Care Team ([facility] st Contact Info) Description 11/03/2023 Refill [facility] [address] [place] [address] Angelique Grace DO [address] [place] [address] Social History Tobacco Use Types Packs/Day Years [...] 02/04/2025 2:30 PM EST Clinical Support [address] [address] 02/14/2025 1:30 PM EST Clinical Support [address] [address] 02/26/2025 11:30 AM EST Medication Management [address] [address] PuiaYu, PharmD [address] [place] [phone] documented as of this encounter Goals Goal [...] documented as of this encounter Care Teams Clerical Investigator Relationship Specialty Start Date End Date Angelique Grace DO [address] [place] [address] PCP - General Family Medicine 03/14/18 PuiaDarrynYu, PharmD [address] [place] [address] Pharmacist Internal Medicine 11/03/22 documented as of this encounter
--- OUTSIDE RECORDS SUMMARY | 2025-01-31 19:06 | XMS_ITS | Encounter Summary ---
Author Organization [employer] Address 75 [facility] 7t [place] [address] Care Team Providers Care Cash Manager Name Role Phone Angelique Grace DO Primary Care Provider +1- [phone] Yu Busby PharmD Unavailable [phone] Reason for Visit * Reason Comments Med Refill Encounter Details Date Type Department Care Team ([facility] st Contact Info) Description 02/14/2023 Refill [facility] [address] [place] [address] Yulisa Cedillo MD [address] [place] [address] Primary hypertension Social History Tobacco Use Types [...] Description 02/04/2025 2:30 PM EST Clinical Support [address] [address] 02/14/2025 1:30 PM EST Clinical Support [address] [address] 02/26/2025 11:30 AM EST Medication Management [address] [address] JamesiaYu, PharmD [address] [place] [address] documented as of this encounter Goals Goal Patient Goal Type Associated Problems Recent Progress Patient-Stated? Author Smoking cessation General No Yu Busby, PharmD Hemoglobin A1c < 7 Result Component 9(01/31/2025 2:15 PM EST) No Castillo Pradhan, PharmD Record your blood sugar as directed Result Component No JamesiaCorneliasa, PharmD documented as of this encounter Visit Diagnoses Diagnosis Primary hypertension Unspecified essential hypertension documented in this encounter Additional Health Concerns Assessment Noted Time PHQ-9 Depression Total Score: 0 06/09/19 23 11:27 AM EDT documented as of this encounter Care Teams Cash Manager Relationship Specialty Start Date End Date Angelique Grace DO [address] [place] [address] PCP - General Family Medicine 03/14/18 PuiaDarrynYu, PharmD [address] [place] [address] Pharmacist Internal Medicine 11/03/22 documented as of this encounter
--- OUTSIDE RECORDS SUMMARY | 2025-01-31 19:06 | XMS_ITS | Encounter Summary ---
Author Organization [employer] Address [address] [place] [address] 7t [place] [address] Care Team Providers Care Cone Marker Name Role Phone Angelique Grace DO Primary Care Provider [phone]- [phone] Yu Busby PharmD Unavailable [phone] Reason for Visit * Reason Onset Date Comments Medication Question 12/15/2022 nitroglyceri n (Nitrostat) 0.4 MG SL tablet Encounter Details Date Type Department Care Team (Late st Contact Info) Description 12/15/2022 Telephone [facility] [address] [place] [address] Angelique Grace DO [address] [place], [place] [phone] Medication Question (nitroglycerin (Nitrostat) 0.4 MG SL [...] to Cardiology found 01/2022. Dr. Bruno # [phone] FAX [phone] * Telephone Encounter - Snow Pickard - 12/15/2022 1:51 PM EDT Tc from pt requesting status on last message . [employer] informed has to contact her cardiology dr whoprescribes medication . * Telephone Encounter - Aleida Celis - 12/15/2022 10:48 AM EDT Tc from patient requesting medication nitroglycerin (Nitrostat) 0.4 MG SL tablet. Patient states she is traveling to [place] due to Mom's passing on 12/09/22. Patient is afraid with crying and emotions of getting chest pain as she has in the past. She's traveling at 3 pm today. Patient denied any symptoms at this time. Patient speaks georgian. documented in this encounter Plan of Treatment Upcoming Encounters Date Type Department Care Team (Late st Contact Info) Description 02/04/2025 2:30 PM EST Clinical Support [address] [address] 02/14/2025 1:30 PM EST Clinical Support [address] [address] 02/26/2025 11:30 AM EST Medication Management [address] [address] Yu Busby PharmD [address] [place] [address] documented as of this encounter Goals Goal Patient Goal Type Associated Problems Recent Progress Patient-Stated? Author Smoking cessation General No Yu Busby PharmYusef Hemoglobin A1c < 7 Result Component 9(01/31/2025 2:15 PM EST) No Castillo Pradhan PharmD Record your blood sugar as directed Result Component No Yu Busby PharmD documented as of this encounter Visit Diagnoses Not on filedocumented in this encounter Additional Health Concerns Assessment Noted Time PHQ-9 Depression Total Score: 0 06/09/19 11:27 AM EDT documented as of this encounter Care Teams Cone Marker Relationship Specialty Start Date End Date Angelique Grace DO [address] [place] [address] PCP - General Family Medicine 03/14/18 Yu Busby PharmD [address] [place] [address] Pharmacist Internal Medicine 11/03/22 documented as of this encounter
--- OUTSIDE RECORDS SUMMARY | 2025-01-31 19:06 | XMS_ITS | Encounter Summary ---
Author Organization [employer] Address 75 [facility] 7t [place] [address] Care Team Providers Care Air Export Coordinator Name Role Phone Angelique Grace DO Primary Care Provider [phone]- [phone] Yu Busby PharmD Unavailable [phone] Encounter Details Date Type Department Care Team (Late st Contact Info) Description 11/29/2024 Telephone [facility] MEDICINE [address] [place] [address] Angelique Grace DO [address] [place] [address] Social History Tobacco Use Types Packs/Day Years [...] Description 02/04/2025 2:30 PM EST Clinical Support [address] [address] 02/14/2025 1:30 PM EST Clinical Support [address] [address] 02/26/2025 11:30 AM EST Medication Management [address] [address] Yu Busby, PharmD [address] [place] [address] documented as of this encounter Goals Goal [...] as of this encounter Care Teams Air Export Coordinator Relationship Specialty Start Date End Date Angelique Grace DO [address] [place] [address] PCP - General Family Medicine 03/14/18 Yu Busby, Radha [address] [place] [address] Pharmacist Internal Medicine 11/03/22 documented as of this encounter
--- OUTSIDE RECORDS SUMMARY | 2025-01-31 19:06 | XMS_ITS | Encounter Summary ---
Author Organization [employer] Address 75 [facility] 7t [place] [address] Care Team Providers Care Health And Nutrition Specialist Name Role Phone Angelique Grace DO Primary Care Provider + [phone] Yu Busby PharmD Unavailable [phone] Encounter Details Date Type Department Care Team (Latest Contact Info) Description 01/31/2025 Travel Social History Tobacco Use Types Packs/Day [...] Description 02/04/2025 2:30 PM EST Clinical Support [address] [address] 02/14/2025 1:30 PM EST Clinical Support [address] [address] 02/26/2025 11:30 AM EST Medication Management [address] [address] Yu Busby, PharmD [address] [place] [address] documented as of this encounter Goals Goal [...] their type 2 diabetes No Okhipo, Nannette, RDA Weekly blood pressure task Care Plan Weekly blood pressure task No Okhipo, Nannette, RDA Help patients manage their type 2 diabetes Care Plan Help patients manage their type 2 diabetes No Okhipo, Nannette, RDA Patient has chronic kidney disease Care Plan Patient has chronic kidney disease No Okhipo, Nannette, RDA Weekly blood pressure task Care Plan Weekly blood pressure task No Okhipo, Nannette, RDA Patient has chronic kidney disease Care Plan Patient has chronic kidney disease No Okhipo, Nannette, RDA Weekly blood pressure task Care Plan Weekly blood pressure task No Puia Yu, PharmD Weekly blood pressure task Care Plan Weekly blood pressure task No Puia, Yu, PharmD Patient has chronic kidney disease Care Plan Patient has chronic kidney disease No Puia, Yu, PharmD Patient has chronic kidney disease Care Plan Patient has chronic kidney disease No Puia Yu, PharmD Weekly blood pressure task Care [...] Weekly blood pressure task No Uriel Aleida Patient has chronic kidney [...] chronic kidney disease No Puia Yu, PharmD documented as of [...] as of this encounter Care Teams Health And Nutrition Specialist Relationship Specialty Start Date End Date Angelique Grace DO [address] [place] [address] PCP - General Family Medicine 03/14/18 Yu Busby PharmD [address] [place] [address] Pharmacist Internal Medicine 11/03/22 documented as of this encounter
--- OUTSIDE RECORDS SUMMARY | 2025-01-31 19:06 | XMS_ITS | Encounter Summary ---
Author Organization [employer] Address 75 [facility] 7t [place] [address] Care Team Providers Care Plastic Worker Name Role Phone Angelique Grace DO Primary Care Provider + [phone] Yu Busby PharmD Unavailable [phone] Encounter Details Date Type Department Care Team (Latest Contact Info) Description 01/28/2025 Travel Social History Tobacco Use Types Packs/Day [...] 02/04/2025 2:30 PM EST Clinical Support [address] [address] 02/14/2025 1:30 PM EST Clinical Support [address] [address] 02/26/2025 11:30 AM EST Medication Management [address] [address] Yu Busby, PharmD [address] [place] [address] documented as of this encounter Goals Goal [...] patients manage their type 2 diabetes No Okpavano Nannette, DRAPERY EXAMINER Weekly blood pressure task Care Plan Weekly blood pressure task No Okhipo, Nannette, DRAPERY EXAMINER Help patients manage their type 2 diabetes Care Plan Help patients manage their type 2 diabetes No Okhipo, Nannette, DRAPERY EXAMINER Patient has chronic kidney disease Care Plan Patient has chronic kidney disease No Okhipo, Nannette, DRAPERY EXAMINER Weekly blood pressure task Care Plan Weekly blood pressure task No Okhipo, Nannette, DRAPERY EXAMINER Patient has chronic kidney disease Care Plan Patient has chronic kidney disease No Okhipo, Nannette, DRAPERY EXAMINER documented as of this encounter Visit Diagnoses [...] as of this encounter Care Teams Plastic Worker Relationship Specialty Start Date End Date Angelique Grace DO [address] [place] [address] PCP - General Family Medicine 03/14/18 Yu Busby PharmD [address] [place] [address] Pharmacist Internal Medicine 11/03/22 documented as of this encounter
--- OUTSIDE RECORDS SUMMARY | 2025-01-31 19:06 | XMS_ITS | Encounter Summary ---
Author Organization [employer] Address 75 [facility] 7t [place] [address] Care Team Providers Care Cigarette Filter Inspector Name Role Phone Angelique Grace DO Primary Care Provider [phone]- [phone] Yu Busby PharmD Unavailable [phone] Reason for Visit * Reason Onset Date Comments Med Refill 01/07/2023 Encounter Details Date Type Department Care Team ([facility] st Contact Info) Description 01/07/2023 Telephone [facility] MEDICINE [address] [place] [address] Angelique Grace DO [address] [place] [address] Med Refill Social History Tobacco Use Types [...] capsule to be sent to [facility] documented in this encounter Plan of Treatment Upcoming Encounters Date Type Department Care Team (Late st Contact Info) Description 02/04/2025 2:30 PM EST Clinical Support [address] [address] 02/14/2025 1:30 PM EST Clinical Support [address] [address] 02/26/2025 11:30 AM EST Medication Management [facility] [address] [place] [address] Yu Busby, PharmD [address] [place] [address] documented as of this encounter Goals Goal Patient Goal Type Associated Problems Recent Progress Patient-Stated? Author Smoking cessation General No Yu Busby PharmD Hemoglobin A1c < 7 Result Component 9(01/31/2025 2:15 PM EST) No Castillo Pradhan PharmD Record your blood sugar as directed Result Component No uY Busby PharmD documented as of this encounter Visit Diagnoses Not on filedocumented in this encounter Additional Health Concerns Assessment Noted Time PHQ-9 Depression Total Score: 0 06/09/19 11:27 AM EDT documented as of this encounter Care Teams Cigarette Filter Inspector Relationship Specialty Start Date End Date Angelique Grace DO [address] [place] [address] PCP - General Family Medicine 03/14/18 Yu Busby PharmD [address] [place] [address] Pharmacist Internal Medicine 11/03/22 documented as of this encounter
--- OUTSIDE RECORDS SUMMARY | 2025-01-31 19:06 | XMS_ITS | Encounter Summary ---
Author Organization [employer] Address 75 [facility] 7t [place] [address] Care Team Providers Care Vacuum Cleaner Repair Person Name Role Phone Angelique Grace DO Primary Care Provider [phone] Yu Busby PharmD Unavailable [phone] Reason for Visit * Reason Onset Date Comments Accomodation Letter 08/23/2023 Encounter Details Date Type Department Care Team ([facility] st Contact Info) Description 08/23/2023 Telephone [facility] MEDICINE [address] [place] [address] Angelique Grace DO [address] [place] [address] Accomodation Letter Social History Tobacco Use Types [...] Pt was transferred from Him in which medical underwriter contact HIM for clarification. They informed medical underwriter pt was advised to leave message with providers team. If any questions please contact pt at [phone]. documented in this encounter Plan of Treatment Upcoming Encounters Date Type Department Care Team (Late st Contact Info) Description 02/04/2025 2:30 PM EST Clinical Support [address] [address] 02/14/2025 1:30 PM EST Clinical Support [address] [address] 02/26/2025 11:30 AM EST Medication Management [address] [address] Puia, Yu, PharmD [address] [place] [address] documented as of this encounter Goals Goal Patient Goal Type Associated Problems Recent Progress Patient-Stated? Author Smoking cessation General No Puia, Yu, PharmD Hemoglobin A1c < 7 Result Component 9(01/31/2025 2:15 PM EST) No DellogCastillo toledo, PharmD Record your blood sugar as directed Result Component No Puia, Yu, PharmD documented as of this encounter Visit Diagnoses Not on filedocumented in this encounter Additional Health Concerns Assessment Noted Time PHQ-9 Depression Total Score: 0 06/09/19 23 11:27 AM EDT documented as of this encounter Care Teams Vacuum Cleaner Repair Person Relationship Specialty Start Date End Date Angelique Grace DO [address] [place] [address] PCP - General Family Medicine 03/14/18 Puia, Yu, PharmD [address] [place] [address] Pharmacist Internal Medicine 11/03/22 documented as of this encounter
--- OUTSIDE RECORDS SUMMARY | 2025-01-31 19:06 | XMS_ITS | Encounter Summary ---
Author Organization [employer] Address [address] [facility] 7t [place] [address] Care Team Providers Care Professional Application Designer Name Role Phone Angelique Grace DO Primary Care Provider [phone]- [phone] Yu Busby PharmD Unavailable [phone] Reason for Visit * Reason Onset Date Comments Nurse Triage 09/08/2023 Encounter Details Date Type Department Care Team ([facility] st Contact Info) Description 09/08/2023 Telephone [facility] MEDICINE [address] [place] [address] Angelique Grace DO [address] [place] [address] Nurse Triage Social History Tobacco Use Types [...] accepted this outcome Please contact pt at [phone] (delivery representative) documented in this encounter Plan of Treatment Upcoming Encounters Date Type Department Care Team (Late st Contact Info) Description 02/04/2025 2:30 PM EST Clinical Support [address] [address] 02/14/2025 1:30 PM EST Clinical Support [address] [address] 02/26/2025 11:30 AM EST Medication Management [address] [address] Yu Busby PharmD [address] [place] [address] documented as of this encounter Goals Goal [...] documented as of this encounter Care Teams Professional Application Designer Relationship Specialty Start Date End Date Angelique Grace DO [address] [place] [address] PCP - General Family Medicine 03/14/18 Yu Busby PharmD [address] [place] [address] Pharmacist Internal Medicine 11/03/22 documented as of this encounter
--- OUTSIDE RECORDS SUMMARY | 2025-01-31 19:06 | XMS_ITS | Encounter Summary ---
Author Organization [employer] Address 75 [facility] 7t [place] [address] Care Team Providers Care Driving School Instructor Name Role Phone Angelique Grace DO Primary Care Provider [phone]- [phone] Yu Busby PharmD Unavailable [phone] Reason for Visit * Reason Onset Date Comments Switch to televisit 06/28/2024 Encounter Details Date Type Department Care Team ([facility] st Contact Info) Description 06/28/2024 Telephone [facility] MEDICINE [address] [place] [address] Angelique Grace DO [address] [place] [address] Switch to televisit Social History Tobacco Use [...] today at 1:30 pm with Yu Busby. [phone] documented in this encounter Plan of Treatment Upcoming Encounters Date Type Department Care Team (Late st Contact Info) Description 02/04/2025 2:30 PM EST Clinical Support [address] [address] 02/14/2025 1:30 PM EST Clinical Support [address] [address] 02/26/2025 11:30 AM EST Medication Management [address] [address] Yu Busby PharmD [address] [place] [address] documented as of this encounter Goals Goal [...] documented as of this encounter Care Teams Driving School Instructor Relationship Specialty Start Date End Date Angelique Grace DO [address] [place] [address] PCP - General Family Medicine 03/14/18 Yu Busby PharmD [address] [place] [address] Pharmacist Internal Medicine 11/03/22 documented as of this encounter
--- OUTSIDE RECORDS SUMMARY | 2025-01-31 19:06 | XMS_ITS | Encounter Summary ---
Author Organization [employer] Address 75 [facility] 7t [place] [address] Care Team Providers Care Rock Wool Insulator Name Role Phone Angelique Grace DO Primary Care Provider +1- [phone] Yu Busby PharmD Unavailable [phone] Encounter Details Date Type Department Care Team (Late st Contact Info) Description 08/03/2024 Telephone [facility] MEDICINE [address] [place] [address] Angelique Grace DO [address] [place] [address] Social History Tobacco Use Types Packs/Day Years [...] wasdiscussed in the past. Contact pt at [phone] documented in this encounter Plan of Treatment Upcoming Encounters Date Type Department Care Team (Late st Contact Info) Description 02/04/2025 2:30 PM EST Clinical Support [address] [address] 02/14/2025 1:30 PM EST Clinical Support [address] [address] 02/26/2025 11:30 AM EST Medication Management [address] [address] Yu Busby PharmD [address] [place] [address] documented as of this encounter Goals Goal [...] documented as of this encounter Care Teams Rock Wool Insulator Relationship Specialty Start Date End Date Angelique Grace DO [address] [place] [address] PCP - General Family Medicine 03/14/18 Yu Busby PharmD [address] [place] [address] Pharmacist Internal Medicine 11/03/22 documented as of this encounter
--- OUTSIDE RECORDS SUMMARY | 2025-01-31 19:06 | XMS_ITS | Encounter Summary ---
Author Organization [employer] Address 75 [facility] 7t [place] [address] Care Team Providers Care Shaper Set Up Operator Name Role Phone Angelique Grace DO Primary Care Provider +1- [phone] Yu Busby PharmD Unavailable [phone] Reason for Visit * Reason Onset Date Comments Medication Question 05/14/2024 Encounter Details Date Type Department Care Team ([facility] st Contact Info) Description 05/14/2024 Telephone [facility] MEDICINE 230 [place] [address] Angelique Grace DO [address] [place] [address] Medication Question Social History Tobacco Use Types [...] Miscellaneous Notes * Telephone Encounter - Jose Mro DobbinsDavid - 05/14/2024 3:01 PM EST Tc from pt requesting call back to Speak with Yu. Pt states that she Currently has High Blood sugar but pt Denied Triage. She would like to Discuss her medication. Contact pt at [phone] documented in this encounter Plan of Treatment Upcoming Encounters Date Type Department Care Team (Late st Contact Info) Description 02/04/2025 2:30 PM EST Clinical Support [address] [address] 02/14/2025 1:30 PM EST Clinical Support [address] [address] 02/26/2025 11:30 AM EST Medication Management [address] [address] Yu Busby, PharmD [address] [place] [address] documented as of this encounter Goals Goal [...] documented as of this encounter Care Teams Shaper Set Up Operator Relationship Specialty Start Date End Date Angelique Grace DO [address] [place] [address] PCP - General Family Medicine 03/14/18 Yu Busby, PharmD [address] [place] [address] Pharmacist Internal Medicine 11/03/22 documented as of this encounter
--- OUTSIDE RECORDS SUMMARY | 2025-01-31 19:06 | XMS_ITS | Encounter Summary ---
Author Organization [employer] Address 75 [facility] 7t [place] [address] Care Team Providers Care Solution Professional Name Role Phone Angelique Grace DO Primary Care Provider +1- [phone] Yu Busby PharmD Unavailable [phone] Reason for Visit * Reason Onset Date Comments Medication Question 02/16/2024 Encounter Details Date Type Department Care Team ([facility] st Contact Info) Description 02/16/2024 Telephone [facility] MEDICINE 230 [place] [address] Angelique Grace DO 230 [place] [address] Medication Question Social History Tobacco Use Types [...] Description 02/04/2025 2:30 PM EST Clinical Support [address] [address] 02/14/2025 1:30 PM EST Clinical Support [address] [address] 02/26/2025 11:30 AM EST Medication Management [address] [address] Yu Busby PharmD [address] [place] [address] documented as of this encounter Goals Goal [...] documented as of this encounter Care Teams Solution Professional Relationship Specialty Start Date End Date Angelique Grace DO [address] [place] [address] PCP - General Family Medicine 03/14/18 Yu Busby PharmD [address] [place] [address] Pharmacist Internal Medicine 11/03/22 documented as of this encounter
--- OUTSIDE RECORDS SUMMARY | 2025-01-31 19:06 | XMS_ITS | Encounter Summary ---
Author Organization [employer] Address 75 [facility] 7t [place] [address] Care Team Providers Care Precinct Captain Name Role Phone Angelique Grace DO Primary Care Provider +1- [phone] Yu Busby PharmD Unavailable [phone] Reason for Visit * Reason Onset Date Comments Nurse Triage 01/10/2023 Encounter Details Date Type Department Care Team ([facility] st Contact Info) Description 01/10/2023 Telephone [facility] MED[facility]INE 230 [place] [address] Angelique Grace DO 230 [place] [address] Nurse Triage Social History Tobacco Use Types [...] 01/10/2023 4:01 PM EDT Triage call with [employer] [place] [id number] Pt reports burning with urination which started yesterday. Urine has a foul odor, low back pain andbil leg pain. Pt is advised to come to [facility] to be seen and Pt agrees [...] accepted this outcome Please contact pt at [phone] (Tajik) documented in this encounter Plan of Treatment Upcoming Encounters Date Type Department Care Team ([facility] st Contact Info) Description 02/04/2025 2:30 PM EST Clinical Support [address] [address] 02/14/2025 1:30 PM EST Clinical Support [address] [address] 02/26/2025 11:30 AM EST Medication Management [address] [address] Yu Busby PharmD [address] [place] [address] documented as of this encounter Goals Goal [...] documented as of this encounter Care Teams Precinct Captain Relationship Specialty Start Date End Date Angelique Grace DO [address] [place] [address] PCP - General Family Medicine 03/14/18 Yu Busby PharmD [address] [place] [address] Pharmacist Internal Medicine 11/03/22 documented as of this encounter
--- OUTSIDE RECORDS SUMMARY | 2025-01-31 19:06 | XMS_ITS | Encounter Summary ---
Author Organization [employer] Address 75 [facility] 7t [place] [address] Care Team Providers Care Head Of Global Strategic Partnerships Name Role Phone Angelique Grace DO Primary Care Provider [phone] DelCastillo clements PharmD Unavailable Unavail able Yu Busby PharmD Unavailable [phone] Reason for Visit * Reason Comments Med Refill Encounter Details Date Type Department Care Team (Late st Contact Info) Description 05/21/2022 Refill [facility] MEDICINE 230 [place] [address] Brent Garvin FNP Degeneration of lumbar intervertebral [...] Description 02/04/2025 2:30 PM EST Clinical Support [address] [address] 02/14/2025 1:30 PM EST Clinical Support [address] [address] 02/26/2025 11:30 AM EST Medication Management [address] [address] Yu Busby PharmD [address] [place] [address] documented as of this encounter Visit Diagnoses Diagnosis Degeneration of lumbar intervertebral disc Degeneration of lumbar or lumbosacral intervertebral disc documented in this encounter Care Teams Head Of Global Strategic Partnerships Relationship Specialty Start Date End Date Angelique Grace DO [address] [place] [address] PCP - General Family Medicine 03/14/18 Castillo Pradhan PharmD [address] [place] [address] Pharmacist Internal Medicine 07/22/22 11/02/22 Yu Busby PharmD [address] [place] [address] Pharmacist Internal Medicine 11/03/22 documented as of this encounter
--- OUTSIDE RECORDS SUMMARY | 2025-01-31 19:06 | XMS_ITS | Encounter Summary ---
Author Organization [employer] Address [address] [facility] 7t [place] [address] Care Team Providers Care Guide Dog Trainer Name Role Phone Angelique Grace DO Primary Care Provider +1- [phone] Yu Busby PharmD Unavailable [phone] Reason for Visit * Reason Onset Date Comments Med Refill 03/01/2024 Encounter Details Date Type Department Care Team ([facility] st Contact Info) Description 03/01/2024 Telephone [facility] MEDICINE 230 [place] [address] Angelique Grace DO 230 [place] [address] Med Refill Social History Tobacco Use Types [...] be sent to: [facility] [address] documented in this encounter Plan of Treatment Upcoming Encounters Date Type Department Care Team (Late st Contact Info) Description 02/04/2025 2:30 PM EST Clinical Support [facility] MEDICINE [address] [place] [address] 02/14/2025 1:30 PM EST Clinical Support [facility] MEDICINE [address] [place] [address] 02/26/2025 11:30 AM EST Medication Management [address] [address] Yu Busby, PharmD 230 [place] [address] documented as of this encounter Goals Goal [...] documented as of this encounter Care Teams Guide Dog Trainer Relationship Specialty Start Date End Date Angelique Grace DO 230 [place] [address] PCP - General Family Medicine 03/14/18 Yu Busby PharmD [address] [place] [address] Pharmacist Internal Medicine 11/03/22 documented as of this encounter
--- OUTSIDE RECORDS SUMMARY | 2025-01-31 19:07 | XMS_ITS | Encounter Summary ---
Author Organization [employer] Address 75 [facility] 7t [place] [address] Care Team Providers Care Rn Renal Name Role Phone Angelique Grace DO Primary Care Provider +1- [phone] Yu Busby PharmD Unavailable [phone] Encounter Details Date Type Department Care Team (Late st Contact Info) Description 2023 Abstract [facility] MEDICINE 230 [place] [address] Angelique Grace DO 230 [place] [address] Social History Tobacco Use Types Packs/Day Years [...] Description 02/04/2025 2:30 PM EST Clinical Support [address] [address] 02/14/2025 1:30 PM EST Clinical Support [address] [address] 02/26/2025 11:30 AM EST Medication Management [address] [address] Yu Busby, PharmD [address] [place] [address] documented as of this encounter Goals Goal [...] as of this encounter Care Teams Rn Renal Relationship Specialty Start Date End Date Angelique Grace DO [address] [place] [address] PCP - General Family Medicine 03/14/18 Yu Busby, PharmD [address] [place] [address] Pharmacist Internal Medicine 11/03/22 documented as of this encounter
--- OUTSIDE RECORDS SUMMARY | 2025-01-31 19:07 | XMS_ITS | Encounter Summary ---
Author Organization [employer] Address 75 [facility] 7t [place] [address] Care Team Providers Care Mechanical System Technician Name Role Phone CalebAngelique espinoza Primary Care Provider DelCastillo clements PharmD Unavailable Unavail able Yu Busby PharmD Unavailable Encounter Details Date Type Department Care Team (Late st Contact Info) Description 03/02/2022 Orders Only [facility] [address] [place] [address] Angelique Soler LPN Social History Tobacco Use [...] Description 02/04/2025 2:30 PM EST Clinical Support [address] [address] 02/14/2025 1:30 PM EST Clinical Support [address] [phone] 02/26/2025 11:30 AM EST Medication Management [address] [address] PuiaYu, PharmD 230 [place] [address] documented as of this encounter Visit Diagnoses Not on filedocumented in this encounter Care Teams Mechanical System Technician Relationship Specialty Start Date End Date Angelique Grace DO 230 [place] [address] PCP - General Family Medicine 03/14/18 Castillo Pradhan, Radha [address] [place] [address] Pharmacist Internal Medicine 07/22/22 11/02/22 Yu Busby PharmD [address] [place] [address] Pharmacist Internal Medicine 11/03/22 documented as of this encounter
--- OUTSIDE RECORDS SUMMARY | 2025-01-31 19:07 | XMS_ITS | Encounter Summary ---
Author Organization [employer] Address 75 [facility] 7t [place] [address] Care Team Providers Care Reference And Instruction Librarian Name Role Phone Angelique Grace DO Primary Care Provider +1- [phone] Yu Busby PharmD Unavailable [phone] Reason for Visit * Reason Onset Date Comments Call Back Request 03/23/2023 Encounter Details Date Type Department Care Team ([facility] st Contact Info) Description 03/23/2023 Telephone [facility] MEDICINE 230 [place] [address] Angelique Grace DO 230 [place] [address] Call Back Request Social History Tobacco Use [...] a call back in regards pregabalin LANDY, tag writer advise pt about the status on chart but pt still want a call from a nurse. documented in this encounter Plan of Treatment Upcoming Encounters Date Type Department Care Team (Late st Contact Info) Description 02/04/2025 2:30 PM EST Clinical Support [address] [address] 02/14/2025 1:30 PM EST Clinical Support [address] [address] 02/26/2025 11:30 AM EST Medication Management [address] [address] Yu Busby PharmD [address] [place] [address] documented as of this encounter Goals Goal [...] Noted Time PHQ-9 Depression Total Score: 0 03/28/20 23 11:27 AM EDT documented as of this encounter Care Teams Reference And Instruction Librarian Relationship Specialty Start Date End Date Angelique Grace DO 230 [place] [address] PCP - General Family Medicine 03/14/18 Yu Busby PharmD 230 [place] [address] Pharmacist Internal Medicine 11/03/22 documented as of this encounter
--- OUTSIDE RECORDS SUMMARY | 2025-01-31 19:07 | XMS_ITS | Encounter Summary ---
Author Organization [employer] Address 75 [facility] 7t [place] [address] Care Team Providers Care Physical Design Engineer Name Role Phone Angelique Grace DO Primary Care Provider +1- [phone] Yu Busby PharmD Unavailable [phone] Reason for Visit * Reason Comments Med Refill Encounter Details Date Type Department Care Team ([facility] st Contact Info) Description 07/09/2023 Refill [facility] MEDICINE 230 [place] [address] Angelique Grace DO 230 [place] [address] Type 2 diabetes mellitus without complication, with long-term current use of insulin ([facility]) Social History Tobacco Use Types Packs/Day Years [...] 02/04/2025 2:30 PM EST Clinical Support [address] [address] 02/14/2025 1:30 PM EST Clinical Support [address] [address] 02/26/2025 11:30 AM EST Medication Management [address] [address] Yu Busby PharmD [address] [place] [address] documented as of this encounter Goals Goal [...] documented as of this encounter Care Teams Physical Design Engineer Relationship Specialty Start Date End Date Angelique Grace DO [address] [place] [address] PCP - General Family Medicine 03/14/18 Yu Busby, Radha [address] [place] [address] Pharmacist Internal Medicine 11/03/22 documented as of this encounter
--- OUTSIDE RECORDS SUMMARY | 2025-01-31 19:07 | XMS_ITS | Encounter Summary ---
Author Organization [employer] Address 75 [facility] 7t [place] [address] Care Team Providers Care Head Of Sales And Marketing Name Role Phone Angelique Grace DO Primary Care Provider +1- [phone] Yu Busby PharmD Unavailable [phone] Reason for Visit * Reason Onset Date Comments Referral 07/19/2023 Encounter Details Date Type Department Care Team ([facility] st Contact Info) Description 07/19/2023 Telephone [facility] MEDICINE 230 [place] [address] Angelique Grace DO [address] [place] [address] Referral Social History Tobacco Use Types Packs/Day [...] for plastic surgery. Please contact pt at [phone]. documented in this encounter Plan of Treatment Upcoming Encounters Date Type Department Care Team (Late st Contact Info) Description 02/04/2025 2:30 PM EST Clinical Support [address] [address] 02/14/2025 1:30 PM EST Clinical Support [address] [address] 02/26/2025 11:30 AM EST Medication Management [address] [address] Yu Busby PharmD [address] [place] [address] documented as of this encounter Goals Goal [...] documented as of this encounter Care Teams Head Of Sales And Marketing Relationship Specialty Start Date End Date Angelique Grace DO 230 [place] [address] PCP - General Family Medicine 03/14/18 Yu Busby PharmD [address] [place] [address] Pharmacist Internal Medicine 11/03/22 documented as of this encounter
--- OUTSIDE RECORDS SUMMARY | 2025-01-31 19:07 | XMS_ITS | Encounter Summary ---
Author Organization [employer] Address 75 [facility] 7t [place] [address] Care Team Providers Care De Alcholizer Name Role Phone CalebAngelique espinoza Primary Care Provider +1- [phone] Yu Busby PharmD Unavailable [phone] Encounter Details Date Type Department Care Team (Late st Contact Info) Description 05/12/2023 Orders Only [facility] [address] [place] [address] ProviderKhadar MD Social History Tobacco Use Types [...] Description 02/04/2025 2:30 PM EST Clinical Support [address] [address] 02/14/2025 1:30 PM EST Clinical Support [address] [address] 02/26/2025 11:30 AM EST Medication Management [address] [address] PuiaYu, PharmD [address] [place] [address] documented as of this encounter Goals Goal [...] documented as of this encounter Care Teams De Alcholizer Relationship Specialty Start Date End Date Angelique Grace DO [address] [place] [address] PCP - General Family Medicine 03/14/18 Yu Busby, ChristieD [address] [place] [address] Pharmacist Internal Medicine 11/03/22 documented as of this encounter
--- OUTSIDE RECORDS SUMMARY | 2025-01-31 19:07 | XMS_ITS | Encounter Summary ---
Author Organization [employer] Address 75 [facility] 7t [place] [address] Care Team Providers Care Research Analyst Name Role Phone Angelique Grace DO Primary Care Provider +1- [phone] Yu Busby PharmD Unavailable [phone] Encounter Details Date Type Department Care Team (Late st Contact Info) Description 08/10/2023 Telephone [facility] MEDICINE 230 [place] [address] Angelique Grace DO 230 [place] [address] Social History Tobacco Use Types Packs/Day Years [...] 02/04/2025 2:30 PM EST Clinical Support [address] [address] 02/14/2025 1:30 PM EST Clinical Support [address] [address] 02/26/2025 11:30 AM EST Medication Management [address] [address] Yu Busby, PharmD [address] [place] [address] documented as of this encounter Goals Goal [...] documented as of this encounter Care Teams Research Analyst Relationship Specialty Start Date End Date Angelique Grace DO [address] [place] [address] PCP - General Family Medicine 03/14/18 Yu Busby, PharmD [address] [place] [address] Pharmacist Internal Medicine 11/03/22 documented as of this encounter
--- OUTSIDE RECORDS SUMMARY | 2025-01-31 19:07 | XMS_ITS | Encounter Summary ---
Author Organization [employer] Address 75 [facility] 7t [place] [address] Care Team Providers Care Manganese Breaker Name Role Phone Angelique Grace DO Primary Care Provider +1- [phone] Yu Busby PharmD Unavailable [phone] Reason for Visit * Reason Comments Med Refill Encounter Details Date Type Department Care Team ([facility] st Contact Info) Description 06/01/2023 Refill [facility] MEDICINE 230 [place] [address] Yulisa Cedillo MD 230 [place], [place] [phone] Primary hypertension Social History Tobacco Use Types [...] Description 02/04/2025 2:30 PM EST Clinical Support [address] [address] 02/14/2025 1:30 PM EST Clinical Support [address] [address] 02/26/2025 11:30 AM EST Medication Management [address] [address] JamesiaYu, PharmD [address] [place] [address] documented as of this encounter Goals Goal [...] documented as of this encounter Care Teams Manganese Breaker Relationship Specialty Start Date End Date Angelique Grace DO [address] [place] [address] PCP - General Family Medicine 03/14/18 PuiaDarrynYu, PharmD [address] [place] [address] Pharmacist Internal Medicine 11/03/22 documented as of this encounter
--- OUTSIDE RECORDS SUMMARY | 2025-01-31 19:07 | XMS_ITS | Encounter Summary ---
Author Organization [employer] Address [address] [place] [address] 7t [place] [address] Care Team Providers Care Courtroom Clerk Name Role Phone Angelique Grace DO Primary Care Provider DelCastillo clements PharmD Unavailable Unavail able Yu Busby PharmD Unavailable Encounter Details Date Type Department Care Team (Late st Contact Info) Description 02/23/2022 [facility] Health Information Management [address] [place] [address] Angelique Grace DO 230 [place] [address] Social History Tobacco Use Types Packs/Day Years [...] Description 02/04/2025 2:30 PM EST Clinical Support [address] [phone] 02/14/2025 1:30 PM EST Clinical Support [address] [phone] 02/26/2025 11:30 AM EST Medication Management [address] [address] Puia Yu, PharmD 230 [place] [address] documented as of this encounter Visit Diagnoses Not on filedocumented in this encounter Care Teams Courtroom Clerk Relationship Specialty Start Date End Date Angelique Grace DO [address] [place] [address] PCP - General Family Medicine 03/14/18 Castillo Pradhan, ChristieD [address] [place] [address] Pharmacist Internal Medicine 07/22/22 11/02/22 Yu Busby PharmD [address] [place] [address] Pharmacist Internal Medicine 11/03/22 documented as of this encounter
--- OUTSIDE RECORDS SUMMARY | 2025-01-31 19:07 | XMS_ITS | Encounter Summary ---
Author Organization [employer] Address 75 [facility] 7t [place] [address] Care Team Providers Care Oil Lease Operator Name Role Phone Angelique Grace DO Primary Care Provider +1- [phone] Yu Busby PharmD Unavailable [phone] Reason for Visit * Reason Onset Date Comments Durable Medical Equipment 03/03/2023 Encounter Details Date Type Department Care Team ([facility] st Contact Info) Description 03/03/2023 Telephone [facility] MEDICINE 230 [place] [address] Angelique Grace DO [address] [place] [address] Durable Medical Equipment Social History Tobacco Use [...] Cane Electric Patches Please contact pt @ [phone] documented in this encounter Plan of Treatment Upcoming Encounters Date Type Department Care Team (Late st Contact Info) Description 02/04/2025 2:30 PM EST Clinical Support [address] [address] 02/14/2025 1:30 PM EST Clinical Support [facility] MEDICINE [address] [place] [address] 02/26/2025 11:30 AM EST Medication Management [address] [address] Yu Busby, PharmD [address] [place] [address] documented as of this encounter Goals Goal [...] as of this encounter Care Teams Oil Lease Operator Relationship Specialty Start Date End Date Angelique Grace DO [address] [place] [address] PCP - General Family Medicine 03/14/18 Yu Busby PharmD [address] [place] [address] Pharmacist Internal Medicine 11/03/22 documented as of this encounter
[2025-01-31 20:37] LABS: MANUAL DIFF FLAG NO
[2025-01-31 20:52] LABS: Imm Gran Abs Auto 0.00 X10*3/uL (0.00-0.03); Imm Gran Pct Auto 0.0 % (0.0-0.4); Lymphocytes Absolute Auto 2.0 X10*3/uL (1.2-4.9)
[2025-02-01 08:06] LABS: HBS Num1 284.79 mIU/mL (0-7.99); HBc Num1 0.08 S/CO (0.00-0.79); HBsAGNum1 0.42 S/CO (0.00-0.99); HIV Num 1 0.18 S/CO (0.00-0.99); Hepatitis A Antibody IgM 0.22 Index (0-0.79); Hepatitis B Surface Antigen Negative (Negative); ~HepC Num1 0.15 S/CO (0.00-0.79); ~Hepatitis A Antibody IgM Nonreactive (Nonreactive); ~Hepatitis B Surface Antibody REACTIVE (Nonreactive); ~Hepatitis C Antibody Nonreactive (Nonreactive)
[2025-02-06 12:29] LABS: Anti Nuclear Antibody Pattern Nuclear, Homogeneous; Anti Nuclear Antibody Screen POSITIVE (NEGATIVE); Anti Nuclear Antibody Titer 1:40 titer
== END 2025-01-31 13:41 | disposition home or self-care (01) ==
LOC: HO.HHCL 13:40
PROVIDERS: Student in an Organized Health Care Education/Training Program; PCP Internal Medicine; Referring Provider Internal Medicine; Visit Provider Internal Medicine
DX: Z01.84 Encounter for antibody response examination (principal); Z11.4 Encounter for screening for human immunodeficiency virus [HIV]; Z11.59 Encounter for screening for other viral diseases; E05.90 Thyrotoxicosis, unspecified without thyrotoxic crisis or storm; G47.10 Hypersomnia, unspecified; K76.0 Fatty (change of) liver, not elsewhere classified; R53.83 Other fatigue
CPT/HCPCS: 36415; 80053; 82306; 82607; 82746; 83036; 84439; 84443; 84480; 85025; 85027; 85610; 86038; 86039; 86704; 86706; 86709; 86803; 87340; 87389

== ENCOUNTER 2025-03-12 14:13 | Outpatient (REF) | payer MEDICAID, SELFPAY ==
--- NOTE | ~2025-03-12 | US_ITS ---
EXAMINATION: US TRIPLEX LOWER EXTREMITY, RIGHT CLINICAL INFORMATION: Right calf pain and bruising COMPARISON: Previous lower extremity venous ultrasound April 2019 TECHNIQUE: Color-flow triplex imaging with spectral analysis and compression Doppler were performed on the right lower extremity. FINDINGS: Respiratory variation, normal compression and augmented flow are noted throughout the right lower extremity. The visualized common femoral vein, superficial femoral vein, profunda femoral vein, popliteal vein and midcalf peroneal and posterior tibial venous segments show no evidence of deep venous thrombosis. The left common femoral vein is patent. 5.6 x 1 x 4.6 cm Blackburn's cyst. No abnormality seen in area of bruising in the lateral calf. US/US venous duplex LE RT IMPRESSION: No evidence of deep venous thrombosis involving the right lower extremity. Small Blackburn's cyst. Electronically signed by: Shikha Shaver MD 03/12/2025 03:40 PM [facility]
--- OUTSIDE RECORDS SUMMARY | 2025-03-12 10:45 | XMS_ITS | Encounter Summary ---
Author Organization [employer] Address [address] [place] [address] 7t [place] [address] Care Team Providers Care Ash Collector Name Role Phone Angelique Grace DO Primary Care Provider [phone] Yu Busby PharmD Unavailable [phone] Reason for Referral * Imaging (STAT) - Authorized Specialty Diagnoses / Procedures Referred By Contac t Referred To Contact Cardiology Diagnoses Right calf pain Procedures VASC US Lower Extremity Venous Duplex Right Angelique Grace DO [address] [place] [address] Phone: tel: fax: [facility] [address] [place] [phone] Phone: tel: fax: Referral ID Status Reason Start Date Expiration Date Visits Requested Visits Authorized [id number] Authorized Perform Procedure 03/12/2026 1 1 Reason for Visit * Reason Comments Follow-up Encounter Details Date Type Department Care Team (Late st Contact Info) Description 03/12/2025 10:45 AM EST Office Visit [facility] [address] [place] [address] Angelique Grace DO [address] [place] [address] Right calf pain (Primary Dx); Type 2 diabetes mellitus without complication, with long-term current use of insulin (HCC) Social History Tobacco Use Types Packs/Day Years Used Date Smoking Tobacco: Former Cigarettes Passive Smoke Exposure: Past Smokeless Tobacco: Never Comments:Quit 1 year ago Alcohol Use Standard Drinks/Week Comments Never 0 (1 standard drink = 0.6 oz pur e alcohol) Depression Answer Date Recorded Patient Health Questionnaire-9 Score 0 03/12/2025 Patient Health Questionnaire-9 Score 0 03/12/2025 Last PHQ-9: Questionnaire Data Not on file 1 Housing Stability Answer Date Recorded What is [...] Date Recorded Patient Health Questionnaire-2 Score 0 03/12/2025 Internet Access Answer Date Recorded Internet Access [...] Sign Reading Time Taken Comments Blood Pressure 124/80 03/12/2025 11:03 AM EST Pulse 97 03/12/2025 11:03 AM EST Temperature 36.6 C (97.8 F) 03/12/2025 11:03 AM EST Respiratory Rate 20 03/12/2025 11:03 AM EST Oxygen Saturation 99% 03/12/2025 11:03 AM EST Inhaled Oxygen Concentration - - Weight 80.3 kg (177 lb) 03/12/2025 11:03 AM EST Height 155.2 cm (5' 1.12 ) 03/12/2025 11:03 AM Glory JOSEPH Body Mass Index 33.31 03/12/2025 11:03 AM EST documented in this encounter Functional Status * Over the past 2 weeks, how often have you been bothered by any of the following problems? Question Answer Date of Assessment Author Patient Health Questionnaire-2 Score 0 03/12/2025 11:06 AM EST Ruthy Camarillo [place] * Little interest or pleasure in doing things Answer Date of Assessment Author Not at all 03/12/2025 11:06 AM EST Ruthy Diaz MA * Feeling down, depressed, or hopeless Answer Date of Assessment Author Not at all 03/12/2025 11:06 AM Ruthy Chavez MA * Trouble falling or staying asleep, or sleeping too much Answer Date of Assessment Author Not at all 03/12/2025 11:06 AM EST Ruthy Diaz MA * Feeling tired or having little energy Answer Date of Assessment Author Not at all 03/12/2025 11:06 AM Ruthy Chavez MA * Poor appetite or overeating Answer Date of Assessment Author Not at all 03/12/2025 11:06 AM Ruthy Chavez MA * Feeling bad about yourself - or that you are a failure or have let yourself or your family down Answer Date of Assessment Author Not at all 03/12/2025 11:06 AM EST Ruthy Diaz MA * Trouble concentrating on things, such as reading the newspaper or watching television Answer Date of Assessment Author Not at all 03/12/2025 11:06 AM Ruthy Chavez MA * Moving or speaking so slowly that other people could have noticed? Or the opposite - being so fidgety or restless that you have been moving around a lot more than usual. Answer Date of Assessment Author Not at all 03/12/2025 11:06 AM Ruthy Chavez MA * Thoughts that you would be better off or hurting yourself in some way Answer Date of Assessment Author Not at all 03/12/2025 11:06 AM Ruthy Chavez MA * Patient Health Questionnaire-9 Score Answer Date of Assessment Author 0 03/12/2025 11:06 AM Ruthy Chavez MA * Over the last 2 weeks, how often have you been bothered by any of the following problems? Question Answer Date of Assessment Author Feeling nervous, anxious, or on edge 0 03/12/2025 11:06 AM Ruthy Rajput MA Not being able to stop or control worrying 0 03/12/2025 11:06 AM Ruthy Rajput MA Worrying too much about different things 0 03/12/2025 11:06 AM Ruthy Rajput MA Trouble relaxing 0 03/12/2025 11:06 AM Ruthy Rajput MA Being so restless that it is hard to sit still 0 03/12/2025 11:06 AM Ruthy Rajput MA Becoming easily annoyed or irritable 0 03/12/2025 11:06 AM Ruthy Rajput MA Feeling afraid as if something awful might happen 0 03/12/2025 11:06 AM Ruthy Bellamy MA TAMAR-7 Total Score 0 03/12/2025 11:06 AM Ruthy Rajput MA documented as of this encounter Plan of Treatment Upcoming Encounters Date Type Department Care Team (Late st Contact Info) Description 03/28/2025 11:30 AM EST Medication Management [facility] [address] [place] [address] Yu Busby, Radha [address] [place] [address] documented as of this encounter Goals Goal [...] their type 2 diabetes No Okhipo, Nannette, JOURNALISM TEACHER Weekly blood pressure task Care Plan Weekly blood pressure task No Okhipo, Nannette, JOURNALISM TEACHER Help patients manage their type 2 diabetes Care Plan Help patients manage their type 2 diabetes No Okhipo, Nannette, JOURNALISM TEACHER Patient has chronic kidney disease Care Plan Patient has chronic kidney disease No Okhipo, Nannette, JOURNALISM TEACHER Weekly blood pressure task Care Plan Weekly blood pressure task No Okhipo, Nannette, JOURNALISM TEACHER Patient has chronic kidney disease Care Plan Patient has chronic kidney disease No Okhipo, Nannette, JOURNALISM TEACHER Weekly blood pressure task Care Plan Weekly [...] Weekly blood pressure task No Rosalia Austin, RN Patient has chronic kidney disease Care Plan Patient has chronic kidney disease No Rosalia uAstin, RN Patient has chronic kidney disease Care [...] Care Plan Weekly blood pressure task No Daja Browne RN Weekly blood pressure task Care Plan Weekly blood pressure task No Daja Browne RN Patient has chronic kidney disease Care Plan Patient has chronic kidney disease No Daja Browne RN Patient has chronic kidney disease Care Plan Patient has chronic kidney disease No Daja Browne RN Weekly blood pressure task Care Plan [...] Care Plan Weekly blood pressure task No Shea Balderas MD Weekly blood pressure task Care Plan Weekly blood pressure task No Shea Balderas MD Patient has chronic kidney disease Care Plan Patient has chronic kidney disease No Shea Balderas MD Patient has chronic kidney disease Care Plan Patient has chronic kidney disease No Shea Balderas MD Weekly blood pressure task Care Plan Weekly blood pressure task No Shea Balderas MD Weekly blood pressure task Care Plan Weekly blood pressure task No Shea Balderas MD Patient has chronic kidney disease Care Plan Patient has chronic kidney disease No Shea Balderas MD Patient has chronic kidney disease Care Plan Patient has chronic kidney disease No Shea Balderas MD Weekly blood pressure task Care Plan Weekly blood pressure task No Garima Hood Weekly blood pressure task Care Plan Weekly blood pressure task No Garima Hood Patient has chronic kidney disease Care Plan Patient has chronic kidney disease No Garima Hood Patient has chronic kidney disease Care Plan Patient has chronic kidney disease No Garima Hood Weekly blood pressure task Care Plan Weekly [...] Care Plan Weekly blood pressure task No Ni Gil RN Weekly blood pressure task Care Plan Weekly blood pressure task No Ni Gil RN Patient has chronic kidney disease Care Plan Patient has chronic kidney disease No Ni Gil RN Patient has chronic kidney disease Care Plan Patient has chronic kidney disease No Ni Gil RN Weekly blood pressure task Care Plan Weekly blood pressure task No Ralph Velazquez Weekly blood pressure task Care Plan Weekly blood pressure task No Ralph Velazquez Patient has chronic kidney disease Care Plan Patient has chronic kidney disease No Ralph Velazquez Patient has chronic kidney disease Care Plan Patient has chronic kidney disease No Ralph Velazquez Weekly blood pressure task Care Plan Weekly blood pressure task No Ni Gil RN Weekly blood pressure task Care Plan Weekly blood pressure task No Ni Gil RN Patient has chronic kidney disease Care Plan Patient has chronic kidney disease No Ni Gil RN Patient has chronic kidney disease Care Plan Patient has chronic kidney disease No Ni Gil RN Weekly blood pressure task Care Plan Weekly blood pressure task No Colon Castaneda, Abeba Weekly blood pressure task Care Plan Weekly blood pressure task No Colon Castaneda, Abeba Patient has chronic kidney disease Care Plan Patient has chronic kidney disease No Colon Castaneda, Abeba Patient has chronic kidney disease Care Plan Patient has chronic kidney disease No Colon Castaneda, Abeba Weekly blood pressure task Care Plan Weekly blood pressure task No Colon Castaneda, Abeba Weekly blood pressure task Care Plan Weekly blood pressure task No Colon Castaneda, Abeba Patient has chronic kidney disease Care Plan Patient has chronic kidney disease No Colon Castaneda, Abeba Patient has chronic kidney disease Care Plan Patient has chronic kidney disease No Colon Castaneda, Abeba Weekly blood pressure task Care Plan Weekly blood pressure task No Tisha Pickard Weekly blood pressure task Care Plan Weekly blood pressure task No Tisha Pickard Patient has chronic kidney disease Care Plan Patient has chronic kidney disease No Tisha Pickard Patient has chronic kidney disease Care Plan Patient has chronic kidney disease No Tisha Pickard Weekly blood pressure task Care Plan Weekly blood pressure task No Ruthy Resendiz [place] Weekly blood pressure task Care Plan Weekly blood pressure task No Ruthy Resendiz [place] Patient has chronic kidney disease Care Plan Patient has chronic kidney disease No Ruthy Resendiz [place] Patient has chronic kidney disease Care Plan Patient has chronic kidney disease No Ruthy Resendiz [place] Weekly blood pressure task Care Plan Weekly blood pressure task No Consuelo Contreras MA Weekly blood pressure task Care Plan Weekly blood pressure task No Consuelo Contreras MA Patient has chronic kidney disease Care Plan Patient has chronic kidney disease No Consuelo Contreras MA Patient has chronic kidney disease Care Plan Patient has chronic kidney disease No Consuelo Contreras MA documented as of this encounter Procedures Procedure Name Priority Date/Time Associated Diagnosis Comments POCT GLUCOSE (CPT-75013) Routine 03/12/2025 11:05 AM EST Type 2 diabetes mellitus without complication, with long-term current use of insulin ([facility]) documented in this encounter Results * POCT Glucose (03/12/2025 11:05 AM EST) Glucose Blood, POC 134 60 - 200 mg/dL Blood Capillary blood specimen / Unknown 03/12/2025 11:05 AM EST Angelique Grace DO POINT OF CARE TEST ENTER/ARETHA T ORDERABLES Final Result documented in this encounter Visit Diagnoses Diagnosis Right calf pain- Primary Type 2 diabetes mellitus without complication, [...] 01/31/2025 Patient has chronic kidney disease 01/31/2025 Weekly blood pressure task 02/04/2025 Weekly blood pressure task 02/04/2025 Patient has chronic kidney disease 02/04/2025 Patient has chronic kidney disease 02/04/2025 Weekly blood pressure task 02/11/2025 Weekly blood pressure task 02/11/2025 Patient has chronic kidney disease 02/11/2025 Patient has chronic kidney disease 02/11/2025 Weekly blood pressure task 02/11/2025 Weekly blood pressure task 02/11/2025 Patient has chronic kidney disease 02/11/2025 Patient has chronic kidney disease 02/11/2025 Weekly blood pressure task 02/11/2025 Weekly blood pressure task 02/11/2025 Patient has chronic kidney disease 02/11/2025 Patient has chronic kidney disease 02/11/2025 Weekly blood pressure task 02/12/2025 Weekly blood pressure task 02/12/2025 Patient has chronic kidney disease 02/12/2025 Patient has chronic kidney disease 02/12/2025 Weekly blood pressure task 02/12/2025 Weekly blood pressure task 02/12/2025 Patient has chronic kidney disease 02/12/2025 Patient has chronic kidney disease 02/12/2025 Weekly blood pressure task 02/14/2025 Weekly blood pressure task 02/14/2025 Patient has chronic kidney disease 02/14/2025 Patient has chronic kidney disease 02/14/2025 Weekly blood pressure task 02/19/2025 Weekly blood pressure task 02/19/2025 Patient has chronic kidney disease 02/19/2025 Patient has chronic kidney disease 02/19/2025 Weekly blood pressure task 02/19/2025 Weekly blood pressure task 02/19/2025 Patient has chronic kidney disease 02/19/2025 Patient has chronic kidney disease 02/19/2025 Weekly blood pressure task 02/19/2025 Weekly blood pressure task 02/19/2025 Patient has chronic kidney disease 02/19/2025 Patient has chronic kidney disease 02/19/2025 Weekly blood pressure task 02/25/2025 Weekly blood pressure task 02/25/2025 Patient has chronic kidney disease 02/25/2025 Patient has chronic kidney disease 02/25/2025 Weekly blood pressure task 02/26/2025 Weekly blood pressure task 02/26/2025 Patient has chronic kidney disease 02/26/2025 Patient has chronic kidney disease 02/26/2025 Weekly blood pressure task 03/12/2025 Weekly blood pressure task 03/12/2025 Patient has chronic kidney disease 03/12/2025 Patient has chronic kidney disease 03/12/2025 Weekly blood pressure task 03/12/2025 Weekly blood pressure task 03/12/2025 Patient has chronic kidney disease 03/12/2025 Patient has chronic kidney disease 03/12/2025 Assessment Noted Time PHQ-9 Depression Total Score: 0 03/12/20 25 11:06 AM EST documented as of this encounter Care Teams Ash Collector Relationship Specialty Start Date End Date Angeliqeu Grace DO [address] [place] [address] PCP - General Family Medicine 03/14/18 Yu Busby PharmD [address] [place] [address] Pharmacist Internal Medicine 11/03/22 documented as of this encounter
--- OUTSIDE RECORDS SUMMARY | 2025-03-12 17:59 | XMS_ITS | Clinical Summary ---
Author Organization [facility] Address [address] [employer] [facility] [address] [place] [phone] Phone Care Team Providers Care Phonograph Cartridge Assembler Name Role Phone Angelique Grace Primary Care Provider [phone] Allergies Active Allergy Reactions Criticality Noted Date [...] on file Insurance ACO ACO Care Teams Phonograph Cartridge Assembler Relationship Specialty Start Date End Date Angelique Grace DO [address] [place] [address] [place] [address] PCP - General Family Medicine 08/02/23 Additional Source Comments The information contained in this document represents components of the legal health record. It is not the complete legal health record.[facility]
--- OUTSIDE RECORDS SUMMARY | 2025-03-12 17:59 | XMS_ITS | Encounter Summary ---
Author Organization [employer] Address [address] [facility] 7t [place] [address] Care Team Providers Care Director Museum Or Zoo Name Role Phone Angelique Grace DO Primary Care Provider [phone] Yu Busby PharmD Unavailable [phone] Reason for Visit * Reason Onset Date Comments callback requested 01/27/2024 Encounter Details Date Type Department Care Team ([facility] st Contact Info) Description 01/27/2024 Telephone [facility] [address] [place] [address] Angelique Grace DO [address] [place] [address] callback requested Social History Tobacco Use Types [...] has to payout of pocket , Callback [phone] documented in this encounter Plan of Treatment Upcoming Encounters Date Type Department Care Team (Late st Contact Info) Description 03/28/2025 11:30 AM EST Medication Management [facility] [address] [place] [address] Yu Busby PharmD [address] [place] [address] documented as of this encounter Goals Goal [...] as of this encounter Care Teams Director Museum Or Zoo Relationship Specialty Start Date End Date Angelique Grace DO [address] [place] [address] PCP - General Family Medicine 03/14/18 Yu Busby PharmD [address] [place] [address] Pharmacist Internal Medicine 11/03/22 documented as of this encounter
--- OUTSIDE RECORDS SUMMARY | 2025-03-12 17:59 | XMS_ITS | Encounter Summary ---
Author Organization [employer] Address [address] [facility] 7t [place] [address] Care Team Providers Care Technical Programs Manager Name Role Phone Angelique Grace DO Primary Care Provider [phone] Yu Busby PharmD Unavailable [phone] Reason for Visit * Reason Comments Med Refill Encounter Details Date Type Department Care Team ([facility] st Contact Info) Description 01/05/2023 Refill [facility] [address] [place] [address] Shea Balderas MD [address] [place] [address] Social History Tobacco Use Types Packs/Day Years [...] Description 03/28/2025 11:30 AM EST Medication Management [facility]INE [address] [place], [place] [phone] Yu Busby PharmD [address] [place], [place] [phone] documented as of this encounter Goals Goal [...] documented as of this encounter Care Teams Technical Programs Manager Relationship Specialty Start Date End Date Angelique Grace DO [address] [place] [phone] PCP - General Family Medicine 03/14/18 Yu Busby PharmD [address] [place] [phone] Pharmacist Internal Medicine 11/03/22 documented as of this encounter
--- OUTSIDE RECORDS SUMMARY | 2025-03-12 17:59 | XMS_ITS | Clinical Summary ---
Author Organization [address] [place] [address] Address [address] [place] [address] Phone Care Team Providers Care Research Computing Specialist Name Role Phone Kaye Gracefer Agustin DE JESUS Primary Care Provider [phone] Allergies Active Allergy Reactions Criticality Noted Date [...] (two) times a day. 240 g 1 02/17/20 25 Encounters Date Type Department Care Team Description 12/18/2024 2:00 PM EDT Office Visit [facility] [place] [address] [phone] George Nicolas DPYoanna Tendonitis, Achilles, right (Primary Dx) from Last [...] Screening 1970 Colorectal Cancer Screening: Colonoscopy 1970 Drug Screen 1970 Non-Opioid Controlled Substance Agreement 1970 Diabetes: Annual Foot Exam 1980 Cervical Cancer Screening: Pap Smear 1991 RSV Immunization Adult Patients (1 - Risk 50-74 years 1-dose series) 2020 Diabetes: Annual Urine Albumin-Creatinine Ratio (uACR) 10/06/2023 Social Influencers of Health Screening 10/06/2023 Depression Screening 03/14/2024 COVID-19 Vaccine ( season) 2024 01/06/2024, 02/09/2023, 06/08/2022, Additional history exists Influenza Vaccine (#1) 2024 , 02/09/2023, 01/12/2022, [...] 05/10/2007, Additional history exists HIV Screening Completed 07/04/2024 [...] - [place] [employer] Care Teams Research Computing Specialist Relationship Specialty Start Date End Date Angelique Grace DO [address] [place] [address] PCP - General 07/23/11
--- OUTSIDE RECORDS SUMMARY | 2025-03-12 17:59 | XMS_ITS | Encounter Summary ---
Author Organization [employer] Address [address] [facility] 7t [place] [address] Care Team Providers Care Typewriter Assembler Name Role Phone Angelique Grace DO Primary Care Provider [phone] Yu Busby PharmD Unavailable [phone] Reason for Visit * Reason Onset Date Comments Med Refill 06/26/2024 Encounter Details Date Type Department Care Team (Late st Contact Info) Description 06/26/2024 Telephone [facility] MED[facility]INE [address] [place] [address] Angelique Grace DO [address] [place], [place] [phone] Med Refill Social History Tobacco Use Types [...] tablet To be sent to: [facility] [address] documented in this encounter Plan of Treatment Upcoming Encounters Date Type Department Care Team (Late st Contact Info) Description 03/28/2025 11:30 AM EST Medication Management [facility] MED[facility]INE [address] [place], [place] [phone] Yu Busby PharmD [address] [place] [address] documented as of this encounter Goals Goal [...] documented as of this encounter Care Teams Typewriter Assembler Relationship Specialty Start Date End Date Angelique Grace DO [address] [place] [address] PCP - General Family Medicine 03/14/18 Yu Busby PharmD [address] [place] [address] Pharmacist Internal Medicine 11/03/22 documented as of this encounter
--- OUTSIDE RECORDS SUMMARY | 2025-03-12 17:59 | XMS_ITS | Encounter Summary ---
Author Organization [employer] Address [address] [facility] 7t [place] [address] Care Team Providers Care Salon Designer Name Role Phone Angelique Grace DO Primary Care Provider [phone] Yu Busby PharmD Unavailable [phone] Reason for Visit * Reason Onset Date Comments Med Refill 01/07/2023 Encounter Details Date Type Department Care Team ([facility] st Contact Info) Description 01/07/2023 Telephone [facility] [address] [place] [address] Angelique Grace DO [address] [place] [address] Med Refill Social History Tobacco Use Types [...] capsule to be sent to [facility] documented in this encounter Plan of Treatment Upcoming Encounters Date Type Department Care Team (Late st Contact Info) Description 03/28/2025 11:30 AM EST Medication Management [facility] [address] [place] [address] Yu Busby PharmD [address] [place] [address] documented as of this encounter Goals Goal [...] documented as of this encounter Care Teams Salon Designer Relationship Specialty Start Date End Date Angelique Grace DO [address] [place] [address] PCP - General Family Medicine 03/14/18 Yu Busby PharmD [address] [place] [address] Pharmacist Internal Medicine 11/03/22 documented as of this encounter
--- OUTSIDE RECORDS SUMMARY | 2025-03-12 17:59 | XMS_ITS | Encounter Summary ---
Author Organization [employer] Address [address] [facility] 7t [place] [address] Care Team Providers Care Chocolate Packer Name Role Phone Angelique Grace DO Primary Care Provider [phone] Yu Busby PharmD Unavailable [phone] Encounter Details Date Type Department Care Team (Late st Contact Info) Description 11/29/2024 Telephone [facility] MEDICINE [address] [place] [address] Angelique Grace DO [address] [place] [address] Social History Tobacco Use Types Packs/Day Years [...] 03/28/2025 11:30 AM EST Medication Management [facility] MEDICINE [address] [place] [address] PuiaYu, PharmD [address] [place] [address] documented as of this encounter Goals Goal [...] documented as of this encounter Care Teams Chocolate Packer Relationship Specialty Start Date End Date Angelique Grace DO [address] [place], [place] [phone] PCP - General Family Medicine 03/14/18 PuiaDarrynYu, PharmD [address] [place] [phone] Pharmacist Internal Medicine 11/03/22 documented as of this encounter
--- OUTSIDE RECORDS SUMMARY | 2025-03-12 17:59 | XMS_ITS | Encounter Summary ---
Author Organization [employer] Address [address] [facility] [address] [place] [address] Care Team Providers Care Tire Mechanic Name Role Phone Angelique Grace DO Primary Care Provider [phone]- [phone] Yu Busby PharmD Unavailable [phone] Encounter Details Date Type Department Care Team (Late st Contact Info) Description 08/03/2024 Telephone [facility] [address] [place] [address] Angelique Grace DO [address] [place] [address] Social History Tobacco Use Types Packs/Day Years [...] wasdiscussed in the past. Contact pt at [phone] documented in this encounter Plan of Treatment Upcoming Encounters Date Type Department Care Team (Late st Contact Info) Description 03/28/2025 11:30 AM EST Medication Management [facility] [address] [place] [address] Yu Busby PharmD [address] [place] [address] documented as of this encounter Goals Goal Patient Goal Type Associated Problems Recent Progress Patient-Stated? Author Smoking cessation General No Yu Busby PharmD Hemoglobin A1c < 7 Result Component 9(01/31/2025 2:15 PM EST) No Castillo Pardhan PharmD Record your blood sugar as directed Result Component No Yu Busby PharmD documented as of this encounter Visit Diagnoses Not on filedocumented in this encounter Additional Health Concerns Assessment Noted Time PHQ-9 Depression Total Score: 0 07/05/19 25 11:39 AM EDT documented as of this encounter Care Teams Tire Mechanic Relationship Specialty Start Date End Date Angelique Grace DO [address] [place] [address] PCP - General Family Medicine 03/14/18 Yu Busby PharmD [address] [place] [address] Pharmacist Internal Medicine 11/03/22 documented as of this encounter
--- OUTSIDE RECORDS SUMMARY | 2025-03-12 17:59 | XMS_ITS | Encounter Summary ---
Author Organization [employer] Address [address] [facility] 7t [place] [address] Care Team Providers Care Refractory Furnace Designer Name Role Phone Angelique Grace DO Primary Care Provider [phone]- [phone] Yu Busby PharmD Unavailable [phone] Reason for Visit * Reason Onset Date Comments Medication Question 05/14/2024 Encounter Details Date Type Department Care Team ([facility] st Contact Info) Description 05/14/2024 Telephone [facility] [address] [place] [address] Angelique Grace DO [address] [place] [address] Medication Question Social History Tobacco Use Types [...] to Discuss her medication. Contact pt at [phone] documented in this encounter Plan of Treatment Upcoming Encounters Date Type Department Care Team (Late st Contact Info) Description 03/28/2025 11:30 AM EST Medication Management [facility] [address] [place] [address] Yu Busby, PharmD [address] [place] [address] documented as of this encounter Goals Goal [...] documented as of this encounter Care Teams Refractory Furnace Designer Relationship Specialty Start Date End Date Jurcsak, Angelique, DO [address] [place] [address] PCP - General Family Medicine 03/14/18 Yu Busby, ChristieD [address] [place] [address] Pharmacist Internal Medicine 11/03/22 documented as of this encounter
--- OUTSIDE RECORDS SUMMARY | 2025-03-12 17:59 | XMS_ITS | Encounter Summary ---
Author Organization [employer] Address [address] [facility] [address] [place] [address] Care Team Providers Care Woodworking Machine Operator Name Role Phone Angelique Grace DO Primary Care Provider [phone]- [phone] Yu Busby PharmD Unavailable [phone] Reason for Visit * Reason Onset Date Comments Medication Question 02/16/2024 Encounter Details Date Type Department Care Team ([facility] st Contact Info) Description 02/16/[address] [facility]INE [address] [place] [address] Angelique Grace DO [address] [place] [address] Medication Question Social History Tobacco Use Types [...] Description 03/28/2025 11:30 AM EST Medication Management [facility] [address] [place] [address] Yu Busby PharmD [address] [place] [address] documented as of this encounter Goals Goal [...] documented as of this encounter Care Teams Woodworking Machine Operator Relationship Specialty Start Date End Date Angelique Grace DO [address] [place] [address] PCP - General Family Medicine 03/14/18 Yu Busby, PharmD [address] [place] [address] Pharmacist Internal Medicine 11/03/22 documented as of this encounter
--- OUTSIDE RECORDS SUMMARY | 2025-03-12 17:59 | XMS_ITS | Encounter Summary ---
Author Organization [employer] Address [address] [facility] 7t [place] [address] Care Team Providers Care Aquatic Facility Manager Name Role Phone Angelique Grace DO Primary Care Provider [phone]- [phone] Yu Busby PharmD Unavailable [phone] Reason for Visit * Reason Onset Date Comments Nurse Triage 09/08/2023 Encounter Details Date Type Department Care Team ([facility] st Contact Info) Description 09/08/2023 Telephone [facility] [address] [place] [address] Angelique Grace DO [address] [place] [address] Nurse Triage Social History Tobacco Use Types [...] accepted this outcome Please contact pt at [phone] (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 Author Smoking cessation General No Puia, Yu, PharmD Hemoglobin A1c < 7 Result Component 9(01/31/2025 2:15 PM EST) No DelCastillo clements, PharmD Record your blood sugar as directed Result Component No Puia Yu, PharmD documented as of this encounter Visit Diagnoses Not on filedocumented in this encounter Additional Health Concerns Assessment Noted Time PHQ-9 Depression Total Score: 0 06/09/19 23 11:27 AM EDT documented as of this encounter Care Teams Aquatic Facility Manager Relationship Specialty Start Date End Date Angelique Grace DO [address] [place] [address] PCP - General Family Medicine 03/14/18 Yu Busby, ChristieD [address] [place] [address] [place] [address] Pharmacist Internal Medicine 11/03/22 documented as of this encounter
--- OUTSIDE RECORDS SUMMARY | 2025-03-12 17:59 | XMS_ITS | Encounter Summary ---
Author Organization [employer] Address [address] [place] [address] 7[address] [place] [address] Care Team Providers Care Garden Machinery Mechanic Name Role Phone Angelique Grace DO Primary Care Provider [phone]- [phone] Dellogtre Castillo PharmD Unavailable Unavail able Yu Busby PharmD Unavailable Reason for Visit * Reason Comments Med Refill Encounter Details Date Type Department Care Team (Late st Contact Info) Description 06/02/2022 Refill [facility] [address] [place] [address] Yulisa Cedillo MD [address] [place] [address] Primary hypertension Social History Tobacco Use Types [...] Description 03/28/2025 11:30 AM EST Medication Management [facility] [address] [place] [address] Puia, Yu, PharmD [address] [place] [address] documented as of this encounter Visit Diagnoses Diagnosis Primary hypertension Unspecified essential hypertension documented in this encounter Care Teams Garden Machinery Mechanic Relationship Specialty Start Date End Date Angelique Grace DO [address] [place] [address] PCP - General Family Medicine 03/14/18 Castillo Pradhan, ChristieD [address] [place] [address] Pharmacist Internal Medicine 07/22/22 11/02/22 Yu Busby PharmD [address] [place] [address] Pharmacist Internal Medicine 11/03/22 documented as of this encounter
--- OUTSIDE RECORDS SUMMARY | 2025-03-12 17:59 | XMS_ITS | Clinical Summary ---
Author Organization [employer] Address [address] [place] [address] Care Team Providers Care Rubber Goods Tester Name Role Phone Angelique Grace DO Primary Care Provider Yu Busby PharmD Unavailable [phone] Allergies Active Allergy Reactions Criticality Noted [...] complication, with long-term current use of insulin ([facility]) USE DIRECTED FOUR TIMES A DAY FOR BLOOD SUGAR TESTING AND INSULIN INJECTION 200 each Active TRUEplus Lancets 33G miscIndications:T ype 2 diabetes mellitus without complication, with long-term current use of insulin ([facility]) Use to test blood sugar 3 time(s) daily 100 each Active dapagliflozin (Farxiga) 10 MGIndications:Typ e 2 diabetes mellitus without complication, with long-term current use of insulin ([facility]) TAKE ONE TABLET BY MOUTH EVERY DAY IN THE MORNING 30 tablet Active ascorbic acid (Vitamin C) 250 MG tablet TAKE 1 TABLET BY MOUTH TWICE A DAY WITH FERROUS SULFATE 180 tablet Active omeprazole (PriLOSEC) [address] capsule TAKE ONE CAPSULE BY MOUTH TWICE A DAY BEFORE BREAKFAST AND SUPPER 180 capsule Active aspirin (Aspirin Low Dose) 81 MG EC tabletIndications :Type 2 diabetes mellitus without complication, with long-term current use of insulin ([facility]) Take 1 tablet (81 mg) by mouth in the morning. 90 tablet 3 025 Active meloxicam (Mobic) 15 MG tablet TAKE ONE TABLET BY MOUTH EVERY DAY NEEDED FOR MILD TO MODERATE PAIN 30 tablet 2 025 Active cyanocobalamin (Vitamin B-12) 1000 MCG tablet Take 1 tablet (1,000 mcg) by mouth every other day. 45 tablet 3 025 2025 Active Additional Information Patient taking differently:1,000 mcg OralWeekly, Reason: fatigued with quantity of pills, difficulty remembering to take every other day, Reported on 03/12/2025 Diclofenac Sodium (Arthritis Pain Reliever) 1 % gelIndications:Pa in APPLY 2 GRAMS TOPICALLY TO THE PAINFUL AREAS FOUR TIMES A DAY IF NEEDED FOR PAIN 100 g 3 Active cetirizine (ZyrTEC) 10 MG tablet Take [...] complication, with long-term current use of insulin ([facility]),Other hyperlipidemia TAKE ONE TABLET BY MOUTH EVERY DAY 90 tablet 1 Active amLODIPine (Norvasc) 5 MG tabletIndications :Primary hypertension TAKE 1.5 TABLETS BY MOUTH ONCE DAILY 135 tablet 3 025 Active Blood Pressure kitIndications:El evated blood pressure reading in office with diagnosis of hypertension 1 Units 2 times daily. 1 kit Active Continuous Glucose Stamp Clerk (FreeStyle Krysta 3 Goodridge) deviceIndications :Type 2 diabetes mellitus without complication, with long-term current use of insulin ([facility]) 1 each Once per day. Use as directed for CGM 1 each 02/15/20 25 2:03 PM EST Active insulin pen needle (B-D ULTRAFINE III SHORT PEN) 31G X 8 mm miscIndications:T ype 2 diabetes mellitus without complication, with long-term current use of insulin ([facility]) Use once daily for insulin injection 100 each 3 Active pregabalin (Lyrica) 100 MG capsuleIndication s:Neuropathy TAKE ONE CAPSULE BY MOUTH THREE TIMES A DAY 90 capsule 1 12/09/2 025 Active diphenhydrAMINE (BENADryl) 25 MG capsuleIndication s:Allergic rhinitis, unspecified seasonality, unspecified trigger Take 1 capsule (25 mg) by mouth if needed at bedtime for allergies. 90 capsule 025 2025 Active Dulaglutide (Trulicity) 1.5 MG/0.5ML solution auto-injectorIndi cations:Type 2 diabetes mellitus without complication, with long-term current use of insulin ([facility]) Inject 1.5 mg under the skin 1 (one) time per week. 2 mL 11 025 Active glucose blood (FreeStyle Precision Yoel Test) test stripIndications: Type 2 diabetes mellitus without complication, with long-term current use of insulin ([facility]) Use to test blood sugar 3 times daily in case of CGM failure or extremes of BG 100 each 025 Active Continuous Glucose Sensor (FreeStyle Krysta 3 Plus Sensor) miscIndications:T ype 2 diabetes mellitus without complication, with long-term current use of insulin ([facility]) Apply 1 every 15 days as directed for CGM 2 each Active insulin glargine (Toujeo SoloStar) 300 UNIT/ML injectionIndicati ons:Type 2 diabetes mellitus without complication, with long-term current use of insulin ([facility]) Inject 74 Units under the skin in the morning. 9 mL 2 025 Active glucose blood (FREESTYLE LITE) test stripIndications: Type 2 diabetes mellitus without complication, with long-term current use of insulin ([facility]) Test blood sugars three times a day 100 each 11 025 2024 Discontinued(A lternate therapy) diphenhydrAMINE (BENADryl) 25 MG capsuleIndication s:Allergic rhinitis, unspecified seasonality, unspecified trigger Take 1 capsule (25 mg) by mouth if needed at bedtime for allergies. 90 capsule 025 2024 Discontinued(R eorder (will not trigger notification to Pharmacy)) pregabalin (Lyrica) 100 MG capsuleIndication s:Neuropathy TAKE ONE CAPSULE BY MOUTH THREE TIMES A DAY 90 capsule 1 025 2024 Discontinued Continuous Glucose Sensor (FreeStyle Krysta 3 Plus Sensor) miscIndications:T ype 2 diabetes mellitus without complication, with long-term current use of insulin ([facility]) Apply 1 every 15 days as directed for CGM 2 each 2024 Discontinued(R eorder (will not trigger notification to Pharmacy)) glucose blood (FreeStyle Precision Yoel Test) test stripIndications: Type 2 diabetes mellitus without complication, with long-term current use of insulin ([facility]) Use to test blood sugar 3 times daily in case of CGM failure or extremes of BG 100 each 11 02/05/20 25 2:28 PM EST 2024 Discontinued(R eorder (will not trigger notification to Pharmacy)) insulin glargine (Toujeo SoloStar) 300 UNIT/ML injectionIndicati ons:Type 2 diabetes mellitus without complication, with long-term current use of insulin ([facility]) Inject 70 Units under the skin in the morning. 9 mL 2 2024 Discontinued(R eorder (will not trigger notification to Pharmacy)) Dulaglutide (Trulicity) 0.75 MG/0.5ML solution auto-injectorIndi cations:Type 2 diabetes mellitus without complication, with long-term current use of insulin ([facility]) Inject 0.75 mg under the skin 1 (one) time per week. 2 mL 2024 Discontinued(D ose adjustment) diphenhydrAMINE (BENADryl) 25 MG capsuleIndication s:Allergic rhinitis, unspecified seasonality, unspecified trigger Take 1 capsule (25 mg) by mouth if needed at bedtime for allergies. 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) 03/12/2025 Telephone [facility] KATERIN Montesinos [phone] Angelique Grace DO ultrasound appt [facility] 03/12/2025 Travel 02/26/2025 Travel 02/26/2025 Patient Outreach [place] [address] Angelique Grace DO Pre-visit Planning (SDOH screening completed on 07/04/2024) 02/25/2025 Telephone [place] [address] Angelique Grace DO Nurse Triage 02/19/2025 Refill [facility] [address] Angelique Grace DO Allergic rhinitis, unspecified seasonality, unspecified trigger 02/19/2025 Refill [facility] [address] Angelique Grace DO Allergic rhinitis, unspecified seasonality, unspecified trigger 02/18/2025 Refill [place] [address] Angelique Grace DO Neuropathy 02/14/2025 2:00 PM EST Clinical Support [place] [address] Ni Gil RN Type 2 diabetes mellitus without complication, with long-term current use of insulin ([facility]) 02/14/2025 Travel 02/11/2025 Results Follow-Up [place] [address] Shea Balderas MD Comprehensive Metabolic Panel, Hemoglobin A1c, Hepatitis Panel, General, Additional followed-up results: 4 02/11/2025 Orders Only [place] [address] Shea Balderas MD Positive LINDSEY (antinuclear antibody) (Primary Dx); Other fatigue 02/11/2025 Telephone [place] [address] Angelique Grace DO CGM care coordination 02/04/2025 2:30 PM EST Clinical Support [facility] [place] [address] Daja Browne, MAGDA Essential hypertension 02/04/2025 Travel 01/31/[address] [address] Yu Busby PharmD Prior Authorization (Krysta 3 CGM reader & 3 plus sensors ) 01/31/2025 Orders Only GENERIC EXTERNAL DATA DEPARTMENT Provider, Generic External Data 01/31/2025 Travel 01/29/2025 3:00 PM EST Immunization [address] [address] Rosalia Austin, MAGDA Encounter for immunization 01/29/2025 Travel 01/28/2025 2:45 PM EST Office Visit [address] [address] Nannette Daigle FNP Encounter for physical examination (Primary Dx); Type 2 diabetes mellitus without complication, with long-term current use of insulin (HCC); Elevated blood pressure reading in office with diagnosis of hypertension 01/28/2025 Travel 01/14/[address] [address] Angelique Grace DO Referral 01/08/[address] [address] Angelique Grace DO Primary hypertension 01/08/2025 Telephone [facility] [address] [place] [address] Angelique Grace DO Chart Prep 01/08/2025 Telephone [facility] [address] [place] [address] Angelique Grace DO 01/06/[address] [facility] [address] [place] [phone] Angelique Grace DO Type 2 diabetes mellitus without complication, with long-term current use of insulin (HCC); Other hyperlipidemia 01/02/[address] [facility] [address] [place] [address] Angelique Grace DO Medication Question 01/02/[address] [facility] [address] [place] [address] Angelique Grace DO Pre-visit Planning (Pre visit planning LVM ) 01/01/2025 Orders [address] [facility] [address] [place] [phone] Angelique Grace DO Type 2 diabetes mellitus without complication, with long-term current use of insulin (HCC) (Primary Dx) 12/21/[address] [facility] [address] [place] [address] Angelique Grace DO Referral 12/18/2024 1:45 PM EDT Office Visit [facility] [address] [place] [phone] Sourav, Viv, OD Presbyopia (Primary Dx) 12/17/[address] [facility] [address] [place] [address] Angelique Grace DO 12/11/[address] [facility] [address] [place] [phone] Angelique Grace DO Referral 12/11/[address] [address] Angelique Grace DO from Last 3 Months Immunizations Immunization Administration [...] cm (5' 1.12 ) 03/12/2025 11:[address] Body Mass Index 33.31 03/12/2025 11:03 AM EST Plan of Treatment Upcoming Encounters Date Type Department Care Team (Late st Contact Info) Description 03/28/2025 11:30 AM EST Medication Management [facility] [address] [place] [address] Yu Busby, PharmD [address] [place] [address] Health Maintenance Due Date Last Done Comments [...] history exists Alcohol/Substance Use Screening 07/04/2025 07/04/2024 Disability Screening 07/04/2025 07/04/2024 SDOH Screening 07/04/2025 07/04/2024 Diabetes: Urine Protein Screening 08/30/2025 08/30/2024, 08/30/2024, 01/06/2024, Additional history exists Lipid Panel 08/30/2025 08/30/2024, 06/13, 05/08/2024, Additional history exists Eye Exam 10/22/2025 10/22/2024, 10/12, 10/22/2024, Additional history exists Tobacco Screening 01/28/2026 01/28/2025 Depression Screening 03/12/2026 03/12/2025, 03/12/20 Cervical Cancer Screening 04/02/2027 HPV/Cotest 04/02/2027 04/02/2022 Pap Smear 04/02/2027 04/02/2022, 09/11/2020 DTaP/Tdap/Td Vaccines (3 - Td or Tdap) 11/20/2032 11/20/2022, 03/01/2013, 01/16/1998, Additional history exists Hepatitis B Vaccines Completed 11/10/2016, 06/02/2016, 03/02/2016, Additional history exists Hepatitis A Vaccines Completed 10/11/2017, 12/22/19 07 Zoster Vaccines Completed 06/25/2021, 04/20/2021 Pneumococcal Vaccine: 50+ Years Completed 06/07/2023, 02/05/2014, 05/10/2007, Additional history exists COVID-19 Vaccine Completed 01/29/2025, , 02/09/2023, Additional history exists Influenza Vaccine Completed 01/29/2025, , 02/09/2023, Additional history exists HIV Screening Completed 01/31/2025, 06/13, 01/06/2024, Additional history exists Hepatitis C Screening Completed 01/31/2025 , 07/04/2024, 01/06/2024, Additional history exists HIB Vaccines Aged Out [...] patients manage their type 2 diabetes No Rashad Daigleupe, MANAGER FIXED INCOME Weekly blood pressure task Care Plan Weekly blood pressure task No Rashad Daigleupe, MANAGER FIXED INCOME Help patients manage their type 2 diabetes Care Plan Help patients manage their type 2 diabetes No Rashad Daigleupe, MANAGER FIXED INCOME Patient has chronic kidney disease Care Plan Patient has chronic kidney disease No Rahsad Daigleupe, MANAGER FIXED INCOME Weekly blood pressure task Care Plan Weekly blood pressure task No Rashad Daigleupe, MANAGER FIXED INCOME Patient has chronic kidney disease Care Plan Patient has chronic kidney disease No Nannette Daigle, MANAGER FIXED INCOME Weekly blood pressure task Care Plan Weekly [...] has chronic kidney disease No Uriel, Aleida Weekly blood pressure task Care Plan [...] Plan Patient has chronic kidney disease No Djaa Browne RN Patient has chronic kidney disease [...] Patient has chronic kidney disease No Ralph Velazuqez Weekly blood pressure task Care Plan Weekly [...] Plan Weekly blood pressure task No Colon Leonel Abeba Weekly blood pressure task Care Plan [...] Patient has chronic kidney disease No Colon Leonel, Abeba Patient has chronic kidney disease Care Plan Patient has chronic kidney disease No Colon Leonel Abeba Weekly blood pressure task Care Plan [...] chronic kidney disease No Consuelo Contreras MA Procedures Procedure Name Priority Date/Time Associated Diagnosis Comments US VENOUS DUPLEX LE RT Routine 2:47 PM EST POCT GLUCOSE (CPT-52499) Routine 03/12/2025 11:05 AM EST Type 2 diabetes mellitus without complication, with long-term current use of insulin (HCC) T3, TOTAL Routine 01/31/2025 2:15 PM EST CBC WITH AUTO DIFFERENTIAL Routine 01/31/2025 2:15 PM EST T4, FREE Routine 01/31/2025 2:15 PM EST TSH Routine 01/31/2025 2:15 PM EST COMPREHENSIVE METABOLIC PANEL Routine 01/31/2025 2:15 PM EST PROTHROMBIN TIME-INR Routine 01/31/2025 2:15 PM EST CBC Routine 01/31/2025 2:15 PM EST VITAMIN D,25-OH,TOTAL,IA Routine 01/31/2025 2:15 PM EST Hypersomnia Other fatigue VITAMIN B12/FOLATE, SERUM PANEL Routine 01/31/2025 2:15 PM EST Hypersomnia Other fatigue LINDSEY SCREEN, IFA, W/REFL TITER AND PATTERN Routine 01/31/2025 2:15 PM EST Hypersomnia Other fatigue HIV 1/2 ANTIGEN/ANTIBODY, FOURTH GENERATION W/RFL Routine 01/31/2025 2:15 PM EST Hypersomnia Other fatigue HEPATITIS PANEL, GENERAL Routine 01/31/2025 2:15 PM EST Hypersomnia Other fatigue HEMOGLOBIN A1C Routine 01/31/2025 2:15 PM EST Hypersomnia Other fatigue COMPREHENSIVE METABOLIC PANEL Routine 01/31/2025 2:15 PM EST Hypersomnia Other fatigue POCT GLYCATED HEMOGLOBIN, TOTAL Routine 01/28/2025 3:13 PM EST Type 2 diabetes mellitus without complication, with long-term current use of insulin (HCC) POCT GLUCOSE (CPT-75680) Routine 01/28/2025 3:12 PM EST Type 2 diabetes mellitus without complication, with long-term current use of insulin (HCC) LIPID PANEL, STANDARD Routine 08/30/2024 2:34 PM EDT ALBUMIN, RANDOM URINE W/CREATININE Routine 08/30/2024 2:30 PM EDT Chronic bilateral low back pain, unspecified whether sciatica present Dyspareunia in female BI MAMMOGRAM SCREENING TOMOSYNTHESIS BILATERAL Routine 03/21/2024 2:15 PM EST HM PAP/HPV Routine 04/02/2022 from Last 3 Months or Most Recently Relevant to Health Maintenance Results * US VENOUS DUPLEX LE RT (03/12/2025 2:47 PM EST) Anatomical Region Laterality Modality Abdomen Ultrasound 03/12/2025 2:47 PM EST Narrative 03/12/2025 3:43 PM EST [place] [id number] Ultrasound Report Signed Patient: Maria C Lewis MR#: [id number] : 1970 Acct:[id number] Age/Sex: 54 / F ADM Date: 03/12/25 Loc: .US Attending Dr: Angelique Grace DO Ordering Physician: Angelique Grace DO Date of Service: 03/12/25 Procedure(s): US venous duplex LE RT Accession Number(s): [id number] cc: Angelique Grace DO Reason for Exam: RIGHT CALF PAIN and bruising r/o dvt EXAMINATION: US TRIPLEX LOWER EXTREMITY, RIGHT CLINICAL INFORMATION: Right calf pain and bruising COMPARISON: Previous lower extremity venous ultrasound April 2019 TECHNIQUE: Color-flow triplex imaging with spectral analysis and compression Doppler were performed on the right lower extremity. FINDINGS: Respiratory variation, normal compression and augmented flow are noted throughout the right lower extremity. The visualized common femoral vein, superficial femoral vein, profunda femoral vein, popliteal vein and midcalf peroneal and posterior tibial venous segments show no evidence of deep venous thrombosis. The left common femoral vein is patent. 5.6 x 1 x 4.6 cm Blackburn's cyst. No abnormality seen in area of bruising in the lateral calf. US/US venous duplex LE RT IMPRESSION: No evidence of deep venous thrombosis involving the right lower extremity. Small Blackburn's cyst. Electronically signed by: Shikha Shaver MD 03/12/2025 03:40 PM EST Dictated By: Shikha Shaver MD Signed By: <Electronically signed by Shikha Shaver MD in OV> 03/12/25 1540 DD/ 1447 TD/TT: 03/12/25 1515 Turn Down Attendant: KIESHA Procedure Note Donotuseinterpreter, Image - 03/12/2025 [place] [address] Ultrasound Report Signed Patient: Maria C LewisMR#: [id number] : 1970Acct:[id number] Age/Sex: 54 / FADM Date: 03/12/25 Loc: . Attending Dr: Angelique Grace DO Ordering Physician: Angelique Grace DO Date of Service: 03/12/25 Procedure(s): US venous duplex LE RT Accession Number(s): [id number] cc: Angelique Grace DO Reason for Exam: RIGHT CALF PAIN and bruising r/o dvt EXAMINATION: US TRIPLEX LOWER EXTREMITY, RIGHT CLINICAL INFORMATION: Right calf pain and bruising COMPARISON: Previous lower extremity venous ultrasound April 2019 TECHNIQUE: Color-flow triplex imaging with spectral analysis and compression Doppler were performed on the right lower extremity. FINDINGS: Respiratory variation, normal compression and augmented flow are noted throughout the right lower extremity. The visualized common femoral vein, superficial femoral vein, profunda femoral vein, popliteal vein and midcalf peroneal and posterior tibial venous segments show no evidence of deep venous thrombosis. The left common femoral vein is patent. 5.6 x 1 x 4.6 cm Blackburn's cyst. No abnormality seen in area of bruising in the lateral calf. US/US venous duplex LE RT IMPRESSION: No evidence of deep venous thrombosis involving the right lower extremity. Small Blackburn's cyst. Electronically signed by: Shikha Shaver MD 03/12/2025 03:40 PM EST RP Dictated By: Shikha Shaver MD Signed By: <Electronically signed by Shikah Shaver MD in OV> 03/12/25 1540 DD/ 1447 TD/TT: 03/12/25 1515 Turn Down Attendant: KIESHA Angelique Grace DO IMG US PROCEDURES Final Resu lt * POCT Glucose (03/12/2025 11:05 AM EST) Only the most recent of2 resultswithin the time period is included. Glucose Blood, POC 134 60 - 200 mg/dL Blood Capillary blood specimen / Unknown 03/12/2025 11:05 AM EST Angelique Grace DO POINT OF CARE TEST ENTER/ARETHA T ORDERABLES Final Result * Vitamin D, 25-Hydroxy, Total, Immunoassay (01/31/2025 2:15 PM EST) Vitamin D 25-OH Total 58.6 >30 ng/mL [facility] Comment: Health Based Reference Values*< 20 ng/mL [id number] ng/mL Insufficient> 30 ng/mL Sufficient*Fish PEREZ. N [...] Thrasher MD LAB BLOOD ORDERABLES Final Result Performing Organization Address City/[facility]/ZIP Co de Phone Number [facility] [address] [place] [phone] * Vitamin B12/Folate, Serum Panel (01/31/2025 2:15 PM EST) Pathologist [facility] Vitamin B12 620 200 - 900 pg/mL [facility] Comment:NORMAL 200-900 PG/ML INDETERMINATE 160-199 PG/ML DEFICIENT < 160 PG/ML Folate 15.5 > or = 4.0 ng/mL [facility] Comment:Reference Values:> o r = 4.0 ng/mL< 4.0 ng/mL suggests folate deficiency Methotrexate, aminopterin and folinic acid(leucovorin) are chemotherapeutic agents whose molecularstructures are similar to folate; therefore, the Architectfolate assay cannot be used for patients using these drugs. Blood Venous blood specimen / Unknown 01/31/2025 2:15 PM EST 01/31/2025 3:51 PM EST us Shea Thrasher MD LAB BLOOD ORDERABLES Final Result Performing Organization Address [facility]/ZIP Co de Phone Number [facility] [address] [place] [phone] * Hepatitis Panel, General (01/31/2025 2:15 PM EST) Pathologist [facility] Hepatitis A IgM Nonreactive Nonreactive [facility] Comment:IgM antibodies to MCCRACKEN V not detected; does not exclude earlyacute or recovered HAV infection. ~Hepatitis B Surface Antibody REACTIVE Nonreactive [facility] Comment:REACTIVE: > 11.99 mI U/mL Hepatitis B Core Antibody Nonreactive Nonreactive [facility] Hepatitis C Antibody Nonreactive Nonreactive [facility] Comment:Antibodies to HCV no t detected; does not exclude early acuteHCV infection. Hepatitis B Surface Ag Negative Negative [facility] Blood Venous blood specimen / Unknown 01/31/2025 2:15 PM EST 01/31/2025 3:51 PM EST us Shea Thrasher MD LAB BLOOD ORDERABLES Final Result [facility] [address] [place] [phone] * (ABNORMAL) CBC auto differential (01/31/2025 2:15 PM EST) White Blood Count 4.8 4.8 - 10.8 X10*3/uL [facility] Red Blood Count 4.90 4.20 - 5.50 X10*6/uL [facility] Hemoglobin 14.2 12.0 - 16.0 g/dl [facility] Hematocrit 43.7 37.0 - 47.0 % [facility] Mean Corpuscular Volume 89.2 80.0 - 98.0 fL [facility] Mean Corpuscular Hemoglobin 29.0 27.0 - 33.0 pg [facility] Mean Corpuscular HGB Conc 32.5 31.0 - 35.0 g/dl [facility] Red Cell Distribution Width 13.4 11.0 - 16.0 % [facility] Platelet Count 199 160 - 400 X10*3/uL [facility] Mean Platelet Volume 11.2 9.4 - 12.3 fL [facility] Neutrophils Percent Auto 45.6 45 - 73 % [facility] Imm Gran Pct Auto 0.0 0.0 - 0.4 % [facility] Lymphocytes Percent Auto 40.6(H) 20 - 40 % [facility] Monocytes Percent Auto 8.5 2 - 11 % [facility] Eosinophils Percent Auto 4.7(H) 0 - 4 % [facility] Basophils Percent Auto 0.6 0 - 2 % [facility] NRBC Pct Auto 0.0 0.0 - 0.2 /100WBC [facility] Neutrophils Absolute Auto 2.3 2.0 - 8.3 x10*3/uL [facility] Imm Gran Abs Auto 0.00 0.00 - 0.03 X10*3/uL [facility] Lymphocytes Absolute Auto 2.0 1.2 - 4.9 X10*3/uL [facility] Monocytes Absolute Auto 0.4 0.1 - 1.2 X10*3/uL [facility] Eosinophils Absolute Auto 0.2 0.0 - 0.4 X10*3/uL [facility] Basophils Absolute Auto 0.0 0.0 - 0.2 X10*3/uL [facility] NRBC Abs Auto 0.000 0.0 - 0.012 X10*3/uL [facility] 01/31/2025 2:15 PM EST 01/31/2025 3:51 PM EST us Generic External Data Provider LAB BLOOD ORDERAB LES Final Result [facility] [address] [place] [phone] * HIV-1/2 Antigen and Antibodies, Fourth Generation, with Reflexes (01/31/2025 2:15 PM EST) HIV AB/AG Nonreactive Nonreactive [facility] Comment:HIV-1 p24 Ag and/or HIV-1/HIV-2 Ab not detected.A test result that is nonreactive does not exclude thepossibility of exposure to or infection with HIV-1 and/orHIV-2. Nonreactive results in this assay for individualswith prior exposure to HIV-1 and/or HIV-2 may be due toantigen and antibody levels that are below the limit ofdetection of this assay.The [employer]ushing Green HIV Ag/Ab Combo assay result andsupplemental assay results should be interpreted inconjunction with the patient's clinical presentation,history and other laboratory results. If the results areinconsistent with clinical evidence, additional testing issuggested to confirm the result. Blood Venous blood specimen / Unknown 01/31/2025 2:15 PM EST 01/31/2025 3:51 PM EST us Shea Thrasher MD LAB BLOOD ORDERABLES Final Result Performing Organization Address [facility] [[email or web address]] Co de Phone Number [facility] [address] [place] [phone] * Prothrombin Time-INR (01/31/2025 2:15 PM EST) Prothrombin Time 12.5 11.2 - 13.5 SEC [facility] INTERNATIONAL NORM RATIO 1.0 0.9 - 1.1 [facility] Comment:INTERNATIONAL NORMAL IZED RATIO (INR) [...] ORDERAB LES Final Result Performing Organization Address [facility] [[email or web address]] Co de Phone Number [facility] [address] [place] [phone] * CBC (01/31/2025 2:15 PM EST) White Blood Count 4.8 4.8 - 10.8 X10*3/uL [facility] Red Blood Count 4.90 4.20 - 5.50 X10*6/uL [facility] Hemoglobin 14.2 12.0 - 16.0 g/dl [facility] Hematocrit 43.7 37.0 - 47.0 % [facility] Mean Corpuscular Volume 89.2 80.0 - 98.0 fL [facility] Mean Corpuscular Hemoglobin 29.0 27.0 - 33.0 pg [facility] Mean Corpuscular HGB Conc 32.5 31.0 - 35.0 g/dl [facility] Red Cell Distribution Width 13.4 11.0 - 16.0 % [facility] Platelet Count 199 160 - 400 X10*3/uL [facility] Mean Platelet Volume 11.2 9.4 - 12.3 fL [facility] NRBC Pct Auto 0.0 0.0 - 0.2 /100WBC [facility] NRBC Abs Auto 0.000 0.0 - 0.012 X10*3/uL [facility] 01/31/2025 2:15 PM EST 01/31/2025 3:51 PM EST us Generic External Data Provider LAB BLOOD ORDERAB LES Final Result [facility] [address] [place] [phone] * (ABNORMAL) LINDSEY Screen,IFA, with Reflex to Titer and Pattern (01/31/2025 2:15 PM EST) Anti Nuclear Antibody Screen POSITIV E(A) NEGATIVE [facility] Comment:LINDSEY IFA is a first l ine screen for detecting thepresence of up to approximately 150 autoantibodies invarious autoimmune diseases. A positive LINDSEY IFA resultis suggestive of autoimmune disease and reflexes totiter and pattern. Further laboratory testing may beconsidered if clinically indicated.For additional information, please refer tohttp://education.IEMO/faq/BLN904(This link is being provided for informational/educational purposes only.) LINDSEY Titer 1:40(A) titer [facility] Comment:A low level LINDSEY tite r may be present in pre-clinicalautoimmune diseases and normal individuals. Reference Range <1:40 Negative 1:40-1:80 Low Antibody Level >1:80 Elevated Antibody Level LINDSEY Pattern Nuclear , Homogen eous(A) [facility] Comment:Homogeneous pattern is associated with systemic lupuserythematosus (SLE), drug-induced lupus and juvenileidiopathic arthritis.AC-1: HomogeneousInternational Consensus on LINDSEY Patterns(https://doi.org/10.1515/yzgh-0045-1455) LINDSEY Titer 2 1:40(A) titer [facility] Comment:A low level LINDSEY tite r may be present in pre-clinicalautoimmune diseases and normal individuals. Reference Range <1:40 Negative 1:40-1:80 Low Antibody Level >1:80 Elevated Antibody Level LINDSEY Pattern 2 Nuclear , Speckle d(A) [facility] Comment:Speckled pattern is associated with mixed connectivetissue disease (MCTD), systemic lupus erythematosus(SLE), Sjogren's syndrome, dermatomyositis, andsystemic sclerosis/polymyositis overlap.AC-2,4,5,29: SpeckledInternational Consensus on LINDSEY Patterns(https://doi.org/10.1515/lymb-9042-3255)THIS TEST WAS PERFORMED AT:[employer] [place] [phone] SANCHEZ MD LINDSEY TITER 3 TNP [facility] LINDSEY PATTERN 3 [facility] Blood Venous blood specimen / Unknown 01/31/2025 2:15 PM EST 01/31/2025 3:51 PM EST us Shea Thrasher MD LAB BLOOD ORDERABLES Final Result [facility] [address] [place] [phone] * T3, Total (01/31/2025 2:15 PM EST) T3, Total 117 76 - 181 ng/dL [facility] Comment:THIS TEST WAS PERFOR MED AT:[employer] [place] [phone] SANCHEZ MD 01/31/2025 2:15 PM EST 01/31/2025 3:51 PM EST us Generic External Data Provider LAB BLOOD ORDERAB LES Final Result Performing Organization Address [facility] [[email or web address]] Co de Phone Number [facility] [address] [place] [phone] * (ABNORMAL) TSH (01/31/2025 2:15 PM EST) Thyroid Stimulating Hormone 0.25(L) 0.32 - 4.0 uIU/mL [facility] Comment:TSH 3rd Generation ( [facility]) 01/31/2025 2:15 PM EST 01/31/2025 3:51 PM EST us Generic External Data Provider LAB BLOOD ORDERAB LES Final Result Performing Organization Address [facility] [[email or web address]] Co de Phone Number [facility] [address] [place] [phone] * T4, Free (01/31/2025 2:15 PM EST) Free T4 (Free Thyroxine) 0.76 0.71 - 1.85 ng/dL [facility] 01/31/2025 2:15 PM EST 01/31/2025 3:51 PM EST Generic External Data Provider LAB BLOOD ORDERAB LES Final Result Performing Organization Address [facility] [[email or web address]] Co de Phone Number [facility] [address] [place] [phone] * (ABNORMAL) Hemoglobin A1c (01/31/2025 2:15 PM EST) Hemoglobin A1c 9.0(H) <6.0 % [facility] Comment:Hemoglobin A1C Refer ence Range Adults: 4.8 - 6.0 % Non diabetic: < 6.0 % Goal: < 7.0 %Additional Action Suggested: > 8.0 %Note: Hemoglobin A1c results are invalid for patients with abnormal amounts of HbF. Blood transfusions may impact the HbA1c concentration in the patient sample. Estimated Average Glucose 212 mg/dL [facility] Comment:eAG = Estimated ave rage glucose which is %A1C expressed asaverage glucose, using the formula of the A0G-JyytspvAtyjwrf Glucose study (ADAG), Diabetes Care, Vol.31,#8,Oct. 2007 Blood Venous blood specimen / Unknown 01/31/2025 2:15 PM EST 01/31/2025 3:51 PM EST us Shea Thrasher MD LAB BLOOD ORDERABLES Final Result [facility] [address] [place] [address] [phone] * (ABNORMAL) Comprehensive Metabolic Panel (01/31/2025 2:15 PM EST) Only the most recent of2 resultswithin the time period is included. Sodium 143 135 - 145 mmol/L [facility] Potassium 4.3 3.3 - 5.1 mmol/L [facility] Chloride 107 96 - 108 mmol/L [facility] Carbon Dioxide 28 22 - 29 mmol/L [facility] Anion Gap 12 12 - 20 [facility] Urea Nitrogen (BUN) 19(H) 9 - 16 mg/dL [facility] Creatinine, Serum 0.63 0.5 - 1.4 mg/dL [facility] Estimated Glomerular Filt Rate >60 [facility] Comment:Chronic Kidney Disea se: Estimated GFR < 60 mL/min/1.00w8Kqdbff Kidney Disease: Estimated GFR < 15 mL/min/1.73m2 Glucose 119(H) 60 - 115 mg/dL [facility] Calcium 9.6 8.4 - 10.2 mg/dL [facility] Bilirubin, Total 0.3 0.0 - 1.0 mg/dL [facility] Aspartate Amino Transferase 29 5 - 31 U/L [facility] Alanine Aminotransferase 33(H) 0 - 31 U/L [facility] Total Protein 7.8 6.5 - 8.0 g/dL [facility] Albumin Level 4.5 3.5 - 5.0 g/dL [facility] Alkaline Phosphatase 66 39 - 117 U/L [facility] 01/31/2025 2:15 PM EST 01/31/2025 3:51 PM EST us Generic External Data Provider LAB BLOOD ORDERAB LES Final Result [facility] [address] [place] [address] [phone] * (ABNORMAL) POCT Hgb A1c (01/28/2025 3:13 PM EST) Pathologist [facility] Hemoglobin A1C 9.0(A) 4.0 - 5.7 % [employer] Lot # [id number] Lot# Expiration Date ,219,[id number] Blood 01/28/2025 3:13 PM EST Nannette Daigle MANAGER FIXED INCOME POINT OF CARE TEST ENTER/EDIT ORDERABLES Final Result * Lipid Panel, Standard (08/30/2024 2:34 PM EDT) Triglycerides 148 <150 mg/dL [facility] Comment:Desirable Triglyceri de: less than 150 mg/dLBorderline High Triglyceride 150-199 mg/dLHigh Triglyceride: 200-499 mg/dLVery High Triglyceride: greater than or equal to 5OO mg/dL Cholesterol 140 <200 mg/dL [facility] Comment:Desirable Cholestero l: less than 200 mg/dLBorderline High Cholesterol: 200-239 mg/dLHigh Cholesterol: greater than 239 mg/dL LDL Cholesterol Calculated 56 <100 mg/dL [facility] Comment:Desirable LDL: less than 100 mg/dLNear Optimal/Above Optimal LDL: 110- 129 mg/dLBorderline High LDL: 130-159 mg/dLHigh LDL: 160-189 mg/dLVery High LDL: greater than or equal to 190 mg/dL HDL Cholesterol 55 >40 mg/dL [facility] Comment:Desirable HDL: great er than 40 mg/dL Note: This HDL assay may give artificially low results in patients with liver disease. 08/30/2024 2:34 PM EDT 08/30/2024 2:34 PM EDT Angelique Grace DO LAB BLOOD ORDERABLES Final R esult Performing Organization Address City/[facility] [[email or web address]] Co de Phone Number [facility] [address] [place] [address] [phone] * Albumin, Random Urine W/Creatinine (08/30/2024 2:30 PM EDT) Creatinine, Urine 166.93 mg/dL [facility] Microalbumin Urine 46.0 mg/L [facility] Microalbum Creatinine Ratio Ur 27.5 <30 ug/mg cr [facility] Comment:Albumin/Creatinine R atio Reference Ranges: Normal: < 30 ug/mg creatinine Microalbuminuria: 30 - 300 ug/mg creatinineClinical Albuminuria: > 300 ug/mg creatinine Urine (Urine, Random) 08/30/2024 2:30 PM EDT 08/30/2024 3:13 PM EDT Angelique Grace DO LAB URINE ORDERABLES Final R esult Performing Organization Address City/[facility]/ZIP Co de Phone Number [facility] [address] [place] [phone] * BI Mammogram Screening Tomosynthesis Bilateral (03/21/2024 2:15 PM EST) Anatomical Region Laterality Modality Breast Bilateral Mammography 03/21/2024 2:15 PM EST Narrative 03/28/2024 9:29 AM EST [facility] [address] [place] [address] Mammography Report Signed Patient: Maria C Lewis MR#: [id number] : 1970 Acct:[id number] Age/Sex: 53 / F ADM Date: 03/21/24 Loc: HO.MAMMO Attending Dr: Angelique Grace DO Ordering Physician: Angelique Grace DO Results: 1N egative Date of Service: 03/21/24 Follow Up: 1 Year From Orig inal Mammogram Procedure(s): MM tomosynthesis screening BI Accession Number(s): [id number] cc: Angelique Grace DO EXAMINATION: MM SCREENING [...] by: Velia Sorensen DO 03/28/2024 09:26 AM [facility] Dictated By: Velia Sorensen DO Signed By: <Electronically signed by Velia Sorensen DO in OV> 03/28/24 0926 DD/ 1415 TD/TT: 03/21/24 1442 Turn Down Attendant: Procedure Note Donotuseinterpreter, Image - 03/28/2024 [facility] [address] [place] [address] Mammography Report Signed Patient: Maria C LewisMR#: [id number] : 1970Acct:[id number] Age/Sex: 53 / FADM Date: 03/21/24 Loc: HO.MAMMO Attending Dr: Angelique Grace DO Ordering Physician: Angelique Graceults: 1N egative Date of Service: 03/21/24Follow Up: 1 Year From Orig ina Mammogram Procedure(s): MM tomosynthesis screening BI Accession Number(s): [id number] cc: Angelique Grace DO EXAMINATION: MM SCREENING [...] by: Velia Sorensen DO 03/28/2024 09:26 AM [facility] Dictated By: Velia Sorensen DO Signed By: <Electronically signed by Velia Sorensen DO in OV> 03/28/24 0926 DD/ 1415 TD/TT: 03/21/24 1442 Turn Down Attendant: Angelique Grace DO IMG BI PROCEDURES Final [...] 03/12/2025 Patient has chronic kidney disease 03/12/[address] [place], [place] [address] C[employer] Care Teams Rubber Goods Tester Relationship Specialty Start Date End Date Angelique Grace DO [address] [place] [address] PCP - General Family Medicine 03/14/18 Yu Busby PharmD [address] [place] [phone] Pharmacist Internal Medicine 11/03/22
--- OUTSIDE RECORDS SUMMARY | 2025-03-12 17:59 | XMS_ITS | Encounter Summary ---
Author Organization [employer] Address [address] [facility] 7t [place] [address] Care Team Providers Care Woodenware Assembler Name Role Phone Angelique Grace DO Primary Care Provider [phone] Yu Busby PharmD Unavailable [phone] Reason for Visit * Reason Comments Med Refill Encounter Details Date Type Department Care Team ([facility] st Contact Info) Description 02/14/2023 Refill [facility] [address] [place] [address] Yulisa Cedillo MD [address] [place] [address] Primary hypertension Social History Tobacco Use Types [...] Description 03/28/2025 11:30 AM EST Medication Management [facility] [address] [place], [place] [phone] Yu Busby PharmD [address] [place], [place] [phone] documented as of this encounter Goals Goal [...] documented as of this encounter Care Teams Woodenware Assembler Relationship Specialty Start Date End Date Angelique Grace DO [address] [place] [address] [phone] PCP - General Family Medicine 03/14/18 Yu Busby PharmD [address] [place] [address] [phone] Pharmacist Internal Medicine 11/03/22 documented as of this encounter
--- OUTSIDE RECORDS SUMMARY | 2025-03-12 17:59 | XMS_ITS | Encounter Summary ---
Author Organization [employer] Address [address] [facility] [address] [place] [address] Care Team Providers Care Design Supervisor Name Role Phone Angelique Grace DO Primary Care Provider [phone] Yu Busby PharmD Unavailable [phone] Reason for Visit * Reason Onset Date Comments ultrasound appt [facility] 03/12/2025 Encounter Details Date Type Department Care Team ([facility] st Contact Info) Description 03/12/2025 Telephone [facility] [address] [place] [address] Angelique Grace DO [address] [place] [address] ultrasound appt [facility] Social History Tobacco Use Types Packs/Day Years [...] your housing situation today? I have dioni norah 11/04/[address] you li [...] encounter Miscellaneous Notes * Telephone Encounter - Consuelo Contreras [place] - 03/12/2025 12:26 PM EST T/c to pt for ultrasound appointment to roll out DVT pt agreed to appointment 03/12/25 at 2:30 pm at [facility]. documented in this encounter Plan of Treatment Upcoming Encounters Date Type Department Care Team (Late st Contact Info) Description 03/28/2025 11:30 AM EST Medication Management [facility] [address] [place] [address] Yu Busby PharmD [address] [place] [address] documented as of this encounter Goals Goal Patient Goal Type Associated Problems Recent Progress Patient-Stated? Author Smoking cessation General No Yu Busby PharmD Hemoglobin A1c < 7 Result Component 9(01/31/2025 2:15 PM EST) No Castillo Pradhan PharmD Record your blood sugar as directed Result Component No Yu Busby PharmYusef Help patients manage their type 2 diabetes Care Plan Help patients manage their type 2 diabetes No Okhipo, Nannette, CRANKSHAFT STRAIGHTENER Weekly blood pressure task Care Plan Weekly blood pressure task No Okhipo, Nannette, CRANKSHAFT STRAIGHTENER Help patients manage their type 2 diabetes Care Plan Help patients manage their type 2 diabetes No Okhipo, Nannette, CRANKSHAFT STRAIGHTENER Patient has chronic kidney disease Care Plan Patient has chronic kidney disease No Okhipo, Nannette, CRANKSHAFT STRAIGHTENER Weekly blood pressure task Care Plan Weekly blood pressure task No Okhipo, Nannette, CRANKSHAFT STRAIGHTENER Patient has chronic kidney disease Care Plan Patient has chronic kidney disease No Okhipo, Nannette, CRANKSHAFT STRAIGHTENER Weekly blood pressure task Care Plan Weekly [...] Plan Weekly blood pressure task No Daja Browne, RN Patient has chronic kidney disease Care Plan Patient has chronic kidney disease No Daja Browne, MAGDA Patient has chronic kidney disease Care [...] Contreras [place] documented as of this encounter Visit [...] as of this encounter Care Teams Design Supervisor Relationship Specialty Start Date End Date Angelique Grace DO [address] [place] [phone] PCP - General Family Medicine 03/14/18 Yu Busby PharmD [address] [place] [address] Pharmacist Internal Medicine 11/03/22 documented as of this encounter
--- OUTSIDE RECORDS SUMMARY | 2025-03-12 17:59 | XMS_ITS | Encounter Summary ---
Author Organization [employer] Address [address] [facility] 7t [place] [address] Care Team Providers Care Patternator Name Role Phone Angelique Garce DO Primary Care Provider [phone] Yu Busby PharmD Unavailable [phone] Encounter Details Date Type Department Care Team (Latest Contact Info) Description 03/12/2025 Travel Social History Tobacco Use Types Packs/Day [...] 11:30 AM EST Medication Management [facility] [address] [place], [place] [phone] Yu Busby PharmD [address] [place] [address] documented as of this encounter Goals Goal [...] their type 2 diabetes No Okhipo, Nannette, UNIX ARCHITECT Weekly blood pressure task Care Plan Weekly blood pressure task No Okhipo, Nannette, UNIX ARCHITECT Help patients manage their type 2 diabetes Care Plan Help patients manage their type 2 diabetes No Okhipo, Nannette, UNIX ARCHITECT Patient has chronic kidney disease Care Plan Patient has chronic kidney disease No Okhipo, Nannette, UNIX ARCHITECT Weekly blood pressure task Care Plan Weekly blood pressure task No Okhipo, Nannette, UNIX ARCHITECT Patient has chronic kidney disease Care Plan Patient has chronic kidney disease No Okhipo, Nannette, UNIX ARCHITECT Weekly blood pressure task Care Plan Weekly [...] Plan Patient has chronic kidney disease No PuiaDarrynYu, PharmD Patient has chronic kidney disease Care Plan Patient has chronic kidney disease No JamesiaDarrynYu, PharmD Weekly blood pressure task [...] Care Plan Weekly blood pressure task No Raplh Velazquez Weekly blood pressure task Care Plan Weekly blood pressure task No Ralph Velazquez Patient has chronic kidney disease Care Plan Patient has chronic kidney disease No Ralph Velazquez Patient has chronic kidney disease Care Plan Patient has chronic kidney disease No Ralph Velazquez Weekly blood pressure task Care Plan Weekly blood pressure task No Ni Gil, MAGDA Weekly blood pressure task Care Plan Weekly blood pressure task No Ni Gil RN Patient has chronic kidney disease Care Plan Patient has chronic kidney disease No Ni Gil RN Patient has chronic kidney disease Care Plan Patient has chronic kidney disease No Ni Gil, MAGDA Weekly blood pressure task Care Plan Weekly blood pressure task No Abeba Galvez Weekly blood pressure task Care Plan Weekly blood pressure task No Abeba Galvez Patient has chronic kidney disease Care Plan Patient has chronic kidney disease No Colon Abeba Castaneda Patient has chronic kidney disease Care Plan Patient has chronic kidney disease No Colon Abeba Castaneda Weekly blood pressure task Care Plan Weekly blood pressure task No Colon Abeba Castaneda Weekly blood pressure task Care Plan Weekly blood pressure task No Colon Abeba Castaneda Patient has chronic kidney disease Care Plan Patient has chronic kidney disease No Abeba Galvez Patient has chronic kidney disease Care Plan Patient has chronic kidney disease No Abeba Galvez Weekly blood pressure task Care Plan Weekly [...] documented as of this encounter Care Teams Patternator Relationship Specialty Start Date End Date Angelique Grace DO [address] [place] [address] PCP - General Family Medicine 03/14/18 Yu Busby PharmD [address] [place] [address] Pharmacist Internal Medicine 11/03/22 documented as of this encounter
--- OUTSIDE RECORDS SUMMARY | 2025-03-12 17:59 | XMS_ITS | Encounter Summary ---
Author Organization [employer] Address [address] [facility] 7t [place] [address] Care Team Providers Care Gear Tooth Lapping Machine Operator Name Role Phone Angelique Grace DO Primary Care Provider +1- [phone] Yu Busby PharmD Unavailable [phone] Reason for Visit * Reason Onset Date Comments Nurse Triage 01/10/2023 Encounter Details Date Type Department Care Team ([facility] st Contact Info) Description 01/10/[address] [facility] MEDICINE [address] [place] [address] Angelique Grace DO [address] [place] [address] Nurse Triage Social History Tobacco Use Types [...] 01/10/2023 4:01 PM EDT Triage call with [employer] [place]ridge Tester ID [id number] Pt reports burning with urination which started [...] accepted this outcome Please contact pt at [phone] (Equatorial Guinean) documented in this encounter Plan of Treatment Upcoming Encounters Date Type Department Care Team (Late st Contact Info) Description 03/28/2025 11:30 AM EST Medication Management [facility] MEDICINE [address] [place] [address] Yu Busby PharmD [address] [place] [address] documented as of this encounter Goals Goal [...] documented as of this encounter Care Teams Gear Tooth Lapping Machine Operator Relationship Specialty Start Date End Date Angelique Grace DO [address] [place] [address] PCP - General Family Medicine 03/14/18 Yu Busby, PharmD [address] [place] [address] Pharmacist Internal Medicine 11/03/22 documented as of this encounter
--- OUTSIDE RECORDS SUMMARY | 2025-03-12 17:59 | XMS_ITS | Encounter Summary ---
Author Organization [employer] Address [address] [facility] 7t [place] [address] Care Team Providers Care Roller Staker Name Role Phone Angelique Grace DO Primary Care Provider +1- [phone] Yu Busby PharmD Unavailable [phone] Reason for Visit * Reason Onset Date Comments Med Refill 03/01/2024 Encounter Details Date Type Department Care Team ([facility] st Contact Info) Description 03/01/2024 Telephone [facility] MEDICINE [address] [place] [address] Angelique Grace DO [address] [place] [address] Med Refill Social History Tobacco Use Types [...] be sent to: [facility] [address] documented in this encounter Plan of Treatment Upcoming Encounters Date Type Department Care Team (Late st Contact Info) Description 03/28/2025 11:30 AM EST Medication Management [facility] MEDICINE [address] [place] [address] Yu Busby PharmD [address] [place] [address] documented as of this encounter Goals Goal [...] as of this encounter Care Teams Roller Staker Relationship Specialty Start Date End Date Angelique Grace DO [address] [place] [address] PCP - General Family Medicine 03/14/18 Yu Busby PharmD [address] [place] [address] Pharmacist Internal Medicine 11/03/22 documented as of this encounter
--- OUTSIDE RECORDS SUMMARY | 2025-03-12 17:59 | XMS_ITS | Encounter Summary ---
Author Organization [employer] Address [address] [place] [facility] 7t [place] [address] Care Team Providers Care Mail Distribution Scheme Examiner Name Role Phone Angelique Grace DO Primary Care Provider +1- [phone] Yu Busby PharmD Unavailable [phone] Reason for Visit * Reason Onset Date Comments Referral 08/30/2023 Encounter Details Date Type Department Care Team ([facility] st Contact Info) Description 08/30/2023 Telephone [facility] MEDICINE 230 [place] [address] Angelique Grace DO [address] [place] [address] Referral Social History Tobacco Use Types Packs/Day [...] referral for Cosmetic Eyelid Surgery how ever instructional 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 documented in this encounter Plan of Treatment Upcoming Encounters Date Type Department Care Team (Late st Contact Info) Description 03/28/2025 11:30 AM EST Medication Management [facility] MEDICINE [address] [place] [address] Yu Busby PharmD [address] [place] [address] documented as of this encounter Goals Goal [...] documented as of this encounter Care Teams Mail Distribution Scheme Examiner Relationship Specialty Start Date End Date Angelique Grace DO [address] [place] [address] PCP - General Family Medicine 03/14/18 Yu Busby PharmD [address] [place] [address] Pharmacist Internal Medicine 11/03/22 documented as of this encounter
--- OUTSIDE RECORDS SUMMARY | 2025-03-12 17:59 | XMS_ITS | Encounter Summary ---
Author Organization [employer] Address 75 [facility] 7t [place] [address] Care Team Providers Care Accounting Office Manager Name Role Phone Angelique Grace DO Primary Care Provider +1- [phone] Yu Busby PharmD Unavailable [phone] Reason for Visit * Reason Onset Date Comments Nurse Triage 01/12/2024 Encounter Details Date Type Department Care Team (Late st Contact Info) Description 01/12/2024 Telephone [facility] MEDICINE [address] [place] [address] Angelique Grace DO 230 [place] [address] Nurse Triage Social History Tobacco Use Types [...] 01/12/2024 11:28 AM EDT Called pt. Via [employer]. Pt. States that she is having numbness in both hands when she sleeps at night and when she uses her tablet. Pt. States she called to make an appt. With [facility] [address] [place] [address] -Fax number [phone] or [phone] DX. Arthralgias but, they told her that [...] Description 03/28/2025 11:30 AM EST Medication Management [facility] MEDICINE [address] [place] [address] Yu Busby PharmD [address] [place] [address] documented as of this encounter Goals Goal [...] documented as of this encounter Care Teams Accounting Office Manager Relationship Specialty Start Date End Date Angelique Grace DO [address] [place] [address] [phone] PCP - General Family Medicine 03/14/18 Yu Busby PharmD [address] [place] [address] Pharmacist Internal Medicine 11/03/22 documented as of this encounter
--- OUTSIDE RECORDS SUMMARY | 2025-03-12 17:59 | XMS_ITS | Encounter Summary ---
Author Organization [employer] Address [address] [place] [address] 7t [place] [address] Care Team Providers Care Assistant Shift Supervisor Name Role Phone Angelique Grace DO Primary Care Provider +1- [phone] Yu Busby PharmD Unavailable [phone] Reason for Visit * Reason Onset Date Comments Medication Question 12/15/2022 nitroglyceri n (Nitrostat) 0.4 MG SL tablet Encounter Details Date Type Department Care Team (Late st Contact Info) Description 12/15/2022 Telephone [facility]INE [address] [place] [address] Angelique Grace DO [address] [place], [place] [phone] Medication Question (nitroglycerin (Nitrostat) 0.4 MG SL [...] to Cardiology found 01/2022. Dr. Bruno # [phone] FAX [phone] * Telephone Encounter - Snow Pickard - 12/15/2022 1:51 PM EDT Tc from pt requesting status on last message . Medication Reconciliation Technician informed has to contact her cardiology dr whoprescribes medication . * Telephone Encounter - Aleida Celis - 12/15/2022 10:48 AM EDT Tc from patient requesting medication nitroglycerin (Nitrostat) 0.4 MG SL tablet. Patient states she is traveling to [place] due to Mom's passing on 12/09/22. Patient is afraid with crying and emotions of getting chest pain as she has in the past. She's traveling at 3 pm today. Patient denied any symptoms at this time. Patient speaks greenlandic. documented in this encounter Plan of Treatment Upcoming Encounters Date Type Department Care Team (Late st Contact Info) Description 03/28/2025 11:30 AM EST Medication Management [facility] [address] [place] [address] Yu Busby PharmD 230 [place] [address] documented as of this encounter Goals Goal [...] as of this encounter Care Teams Assistant Shift Supervisor Relationship Specialty Start Date End Date Angelique Grace DO [address] [place] [address] PCP - General Family Medicine 03/14/18 Yu Busby, Radha [address] [place] [address] Pharmacist Internal Medicine 11/03/22 documented as of this encounter
--- OUTSIDE RECORDS SUMMARY | 2025-03-12 17:59 | XMS_ITS | Encounter Summary ---
Author Organization [employer] Address 75 [facility] 7t [place] [address] Care Team Providers Care Joggle Press Operator Name Role Phone Aneglique Grace DO Primary Care Provider +1- [phone] Yu Busby PharmD Unavailable [phone] Reason for Visit * Reason Onset Date Comments Switch to televisit 06/28/2024 Encounter Details Date Type Department Care Team ([facility] st Contact Info) Description 06/28/2024 Telephone [facility] MEDICINE [address] [place] [address] Angelique Grace DO [address] [place] [address] Switch to televisit Social History Tobacco Use [...] today at 1:30 pm with Yu Busby. [phone] documented in this encounter Plan of Treatment Upcoming Encounters Date Type Department Care Team (Late st Contact Info) Description 03/28/2025 11:30 AM EST Medication Management [facility] MEDICINE 230 [place] [address] Yu Busby, PharmD [address] [place] [address] documented as of this encounter Goals Goal [...] documented as of this encounter Care Teams Joggle Press Operator Relationship Specialty Start Date End Date Angelique Grace DO 230 [place] [address] PCP - General Family Medicine 03/14/18 Yu Busby PharmD [address] [place] [address] Pharmacist Internal Medicine 11/03/22 documented as of this encounter
--- OUTSIDE RECORDS SUMMARY | 2025-03-12 17:59 | XMS_ITS | Encounter Summary ---
Author Organization [employer] Address 75 [facility] 7t [place] [address] Care Team Providers Care Center Specialists Name Role Phone Angelique Grace DO Primary Care Provider +1- [phone] Yu Busby PharmD Unavailable [phone] Reason for Visit * Reason Comments Med Refill Encounter Details Date Type Department Care Team ([facility] st Contact Info) Description 11/03/2023 Refill [facility] MEDICINE 230 [place] [address] Angelique Grace DO [address] [place] [address] Social History Tobacco Use Types Packs/Day Years [...] Description 03/28/2025 11:30 AM EST Medication Management [facility] MEDICINE [address] [place], [place] [phone] Yu Busby PharmD [address] [place] [address] documented as of this encounter Goals Goal [...] documented as of this encounter Care Teams Center Specialists Relationship Specialty Start Date End Date Angelique Grace DO [address] [place] [address] [phone] PCP - General Family Medicine 03/14/18 Yu Busby, PharmD [address] [place] [address] [phone] Pharmacist Internal Medicine 11/03/22 documented as of this encounter
--- OUTSIDE RECORDS SUMMARY | 2025-03-12 18:00 | XMS_ITS | Encounter Summary ---
Author Organization [employer] Address [address] [facility] 7t [place] [address] Care Team Providers Care Hydropulper Operator Name Role Phone Angelique Grace DO Primary Care Provider +1- [phone] Yu Busby PharmD Unavailable [phone] Reason for Visit * Reason Comments Med Refill Encounter Details Date Type Department Care Team ([facility] st Contact Info) Description 06/01/2023 Refill [facility] MEDICINE 230 [place] [address] Yulisa Cedillo MD 230 [place], [place] [phone] Primary hypertension Social History Tobacco Use Types [...] Description 03/28/2025 11:30 AM EST Medication Management [facility] MEDICINE 230 [place], [place] [phone] Yu Busby PharmD 230 [place], [place] [phone] documented as of this encounter Goals Goal [...] documented as of this encounter Care Teams Hydropulper Operator Relationship Specialty Start Date End Date Angelique Grace DO [address] [place] [address] [phone] PCP - General Family Medicine 03/14/18 Yu Busby PharmD [address] [place] [address] [phone] Pharmacist Internal Medicine 11/03/22 documented as of this encounter
--- OUTSIDE RECORDS SUMMARY | 2025-03-12 18:00 | XMS_ITS | Encounter Summary ---
Author Organization [employer] Address [address] [place] [address] 7 [place] [address] Care Team Providers Care Test Consultant Name Role Phone Angelique Grace DO Primary Care Provider [phone] DelCastillo clements PharmD Unavailable Unavail able Yu Busby PharmD Unavailable [phone] Encounter Details Date Type Department Care Team (Late st Contact Info) Description 02/23/2022 [facility] Only [facility] 230 [place] [address] Angelique Grace DO 230 [place] [address] Social History Tobacco Use Types Packs/Day Years [...] Management [facility] MEDICINE [address] [place] [address] Yu Busby, PharmD 230 [place] [address] documented as of this encounter Visit Diagnoses Not on filedocumented in this encounter Care Teams Test Consultant Relationship Specialty Start Date End Date Angelique Grace DO [address] [place] [address] PCP - General Family Medicine 03/14/18 Castillo Pradhan, PharmD [address] [place] [address] Pharmacist Internal Medicine 07/22/22 11/02/22 Yu Busby, ChristieD [address] [place] [address] Pharmacist Internal Medicine 11/03/22 documented as of this encounter
--- OUTSIDE RECORDS SUMMARY | 2025-03-12 18:00 | XMS_ITS | Encounter Summary ---
Author Organization [employer] Address 75 [facility] 7t [place] [address] Care Team Providers Care Mine Engineering Superintendent Name Role Phone Angelique Grace DO Primary Care Provider +1- [phone] Yu Busby PharmD Unavailable [phone] Encounter Details Date Type Department Care Team (Late st Contact Info) Description 08/10/2023 Telephone [facility] MEDICINE 230 [place] [address] Angelique Grace DO 230 [place] [address] Social History Tobacco Use Types Packs/Day Years [...] Description 03/28/2025 11:30 AM EST Medication Management [facility] 230 [place], [place] [phone] Yu Busby PharmD [address] [place] [address] documented as of this encounter Goals Goal [...] documented as of this encounter Care Teams Mine Engineering Superintendent Relationship Specialty Start Date End Date Angelique Grace DO [address] [place] [address] [phone] PCP - General Family Medicine 03/14/18 Yu Busby PharmD [address] [place] [address] [phone] Pharmacist Internal Medicine 11/03/22 documented as of this encounter
--- OUTSIDE RECORDS SUMMARY | 2025-03-12 18:00 | XMS_ITS | Encounter Summary ---
Author Organization [employer] Address 75 [facility] 7t [place] [address] Care Team Providers Care Compress Machine Operator Name Role Phone Angelique Grace DO Primary Care Provider +1- [phone] Yu Busby PharmD Unavailable [phone] Reason for Visit * Reason Onset Date Comments Durable Medical Equipment 03/03/2023 Encounter Details Date Type Department Care Team ([facility] st Contact Info) Description 03/03/2023 Telephone [facility] MEDICINE 230 [place] [address] Angelique Grace DO 230 [place] [address] Durable Medical Equipment Social History Tobacco Use [...] Cane Electric Patches Please contact pt @ [phone] documented in this encounter Plan of Treatment Upcoming Encounters Date Type Department Care Team (Late st Contact Info) Description 03/28/2025 11:30 AM EST Medication Management [facility] MEDICINE [address] [place] [address] Yu Busby, PharmD [address] [place] [address] documented as of this encounter Goals Goal Patient Goal Type Associated Problems Recent Progress Patient-Stated? Author Smoking cessation General No Yu Busby, PharmD Hemoglobin A1c < 7 Result Component 9(01/31/2025 2:15 PM EST) No Castillo Pradhan, PharmYusef Record your blood sugar as directed Result Component No Yu Busby PharmD documented as of this encounter Visit Diagnoses Not on filedocumented in this encounter Additional Health Concerns Assessment Noted Time PHQ-9 Depression Total Score: 0 06/09/19 11:27 AM EDT documented as of this encounter Care Teams Compress Machine Operator Relationship Specialty Start Date End Date Angelique Grace DO [address] [place] [address] PCP - General Family Medicine 03/14/18 Yu Busby PharmD [address] [place] [address] Pharmacist Internal Medicine 11/03/22 documented as of this encounter
--- OUTSIDE RECORDS SUMMARY | 2025-03-12 18:00 | XMS_ITS | Encounter Summary ---
Author Organization [employer] Address 75 [facility] 7t [place] [address] Care Team Providers Care Chlorinator Operator Name Role Phone Angelique Grace DO Primary Care Provider DelCastillo clements PharmD Unavailable Unavail able Yu Busby PharmD Unavailable [phone] Encounter Details Date Type Department Care Team (Late st Contact Info) Description 03/02/2022 Orders Only [facility] [address] [place] [address] Angelique Soler LPN Social History Tobacco Use [...] 11:30 AM EST Medication Management [facility] MEDICINE 230 [place] [address] Puia, Yu, PharmD 230 [place] [address] documented as of this encounter Visit Diagnoses Not on filedocumented in this encounter Care Teams Chlorinator Operator Relationship Specialty Start Date End Date Angelique Grace DO [address] [place] [address] PCP - General Family Medicine 03/14/18 Castillo Pradhan, PharmD [address] [place] [address] Pharmacist Internal Medicine 07/22/22 11/02/22 Yu Busby, ChristieD 230 [place] [address] Pharmacist Internal Medicine 11/03/22 documented as of this encounter
--- OUTSIDE RECORDS SUMMARY | 2025-03-12 18:00 | XMS_ITS | Encounter Summary ---
Author Organization [employer] Address 75 [facility] 7t [place] [address] Care Team Providers Care Credit Analyst Name Role Phone Angelique Grace DO Primary Care Provider [phone]- [phone] Yu Busby PharmD Unavailable [phone] Reason for Visit * Reason Onset Date Comments Call Back Request 03/23/2023 Encounter Details Date Type Department Care Team ([facility] st Contact Info) Description 03/23/[address] [facility] MEDICINE [address] [place] [address] Angelique Grace DO [address] [place] [address] Call Back Request Social History Tobacco Use [...] a call back in regards pregabalin PA, movie writer advise pt about the status on chart but pt still want a call from a nurse. documented in this encounter Plan of Treatment Upcoming Encounters Date Type Department Care Team (Late st Contact Info) Description 03/28/2025 11:30 AM EST Medication Management [facility] MEDICINE [address] [place] [address] PuiaYu, PharmD [address] [place] [address] documented as of this encounter Goals Goal [...] as of this encounter Care Teams Credit Analyst Relationship Specialty Start Date End Date Angelique Grace DO [address] [place] [address] PCP - General Family Medicine 03/14/18 Yu Busby, ChristieD [address] [place] [address] Pharmacist Internal Medicine 11/03/22 documented as of this encounter
--- OUTSIDE RECORDS SUMMARY | 2025-03-12 18:00 | XMS_ITS | Encounter Summary ---
Author Organization [employer] Address 75 [facility] 7t [place] [address] Care Team Providers Care Sewer System Supervisor Name Role Phone Angelique Grace DO Primary Care Provider [phone] DelCastillo clements PharmD Unavailable Unavail able Yu Busby PharmD Unavailable [phone] Reason for Visit * Reason Comments Med Refill Encounter Details Date Type Department Care Team (Late st Contact Info) Description 05/21/2022 Refill [facility]ICINE 230 [place] [address] Brent Garvin FNP Degeneration of lumbar intervertebral [...] EST Medication Management [facility] [address] [place] [address] Yu Busby PharmD [address] [place] [address] documented as of this encounter Visit Diagnoses Diagnosis Degeneration of lumbar intervertebral disc Degeneration of lumbar or lumbosacral intervertebral disc documented in this encounter Care Teams Sewer System Supervisor Relationship Specialty Start Date End Date Angelique Grace DO [address] [place] [address] PCP - General Family Medicine 03/14/18 Castillo Pradhan PharmD [address] [place] [address] Pharmacist Internal Medicine 07/22/22 11/02/22 Yu Busby, ChristieD [address] [place] [address] Pharmacist Internal Medicine 11/03/22 documented as of this encounter
--- OUTSIDE RECORDS SUMMARY | 2025-03-12 18:00 | XMS_ITS | Encounter Summary ---
Author Organization [employer] Address [address] [facility] 7t [place] [address] Care Team Providers Care Boiler Coverer Helper Name Role Phone Angelique Grace DO Primary Care Provider +1- [phone] Yu Busby PharmD Unavailable [phone] Encounter Details Date Type Department Care Team (Late st Contact Info) Description 2023 Abstract [facility] MEDICINE [address] [place] [address] Angelique Grace DO [address] [place] [address] Social History Tobacco Use Types Packs/Day Years [...] 11:30 AM EST Medication Management [facility] MEDICINE [address] [place], [place] [phone] Yu Busby PharmD [address] [place] [address] documented as of this encounter Goals Goal [...] documented as of this encounter Care Teams Boiler Coverer Helper Relationship Specialty Start Date End Date Angelique Grace DO [address] [place] [address] [phone] PCP - General Family Medicine 03/14/18 Yu Busby PharmD [address] [place] [address] [phone] Pharmacist Internal Medicine 11/03/22 documented as of this encounter
--- OUTSIDE RECORDS SUMMARY | 2025-03-12 18:00 | XMS_ITS | Encounter Summary ---
Author Organization [employer] Address [address] [facility] 7t [place] [address] Care Team Providers Care Tunnel Kiln Operator Name Role Phone CalebAngelique espinoza Primary Care Provider +1- [phone] Yu Busby PharmD Unavailable [phone] Encounter Details Date Type Department Care Team (Late st Contact Info) Description 05/12/2023 Orders Only [facility] [address] [place] [address] ProviderKhadar MD Social History Tobacco Use Types [...] Description 03/28/2025 11:30 AM EST Medication Management [facility] MEDICINE 230 [place], [place] [phone] Puia, Yu, PharmD 230 [place], [place] [phone] documented as of this encounter Goals Goal Patient Goal Type Associated Problems Recent Progress Patient-Stated? Author Smoking cessation General No Puia, Yu, PharmD Hemoglobin A1c < 7 Result Component 9(01/31/2025 2:15 PM EST) No DellogonoCastillo, PharmD Record your [...] documented as of this encounter Care Teams Tunnel Kiln Operator Relationship Specialty Start Date End Date Angelique Grace DO 230 [place], [place] [phone] PCP - General Family Medicine 03/14/18 Puia, Yu, PharmD 230 [place], [place] [phone] Pharmacist Internal Medicine 11/03/22 documented as of this encounter
--- OUTSIDE RECORDS SUMMARY | 2025-03-12 18:00 | XMS_ITS | Encounter Summary ---
Author Organization [employer] Address [address] [facility] 7t [place] [address] Care Team Providers Care Pipe Fitter Apprentice Name Role Phone Angelique Grace DO Primary Care Provider DelCastillo clements PharmD Unavailable Unavail able Yu Busby PharmD Unavailable Reason for Visit * Reason Onset Date Comments Call requesting 05/26/2022 Encounter Details Date Type Department Care Team ([facility] st Contact Info) Description 05/26/2022 Telephone [facility] [address] [place] [address] Angelique Grace DO [address] [place] [address] Call requesting Social History Tobacco Use Types [...] Master IM be used so pt. Can medical appointment scheduler her appt? * Telephone Encounter - Rosio Diaz - 05/26/2022 11:05 AM EDT Tc from pt requesting a call from the nurses pt claims that in order to get an appt at [facility]([phone]), nurse has to call make appt because facility is requiring some information in order to schedule appt. Please contact pt at [phone] documented in this encounter Plan of Treatment Upcoming Encounters Date Type Department Care Team (Late st Contact Info) Description 03/28/2025 11:30 AM EST Medication Management [facility] [address] [place], [place] [phone] Yu Busby PharmD [address] [place], [place] documented as of this encounter Visit Diagnoses Not on filedocumented in this encounter Care Teams Pipe Fitter Apprentice Relationship Specialty Start Date End Date Angelique Grace DO [address] [place] [address] PCP - General Family Medicine 03/14/18 Castillo Pradhan PharmD [address] [place] [address] Pharmacist Internal Medicine 07/22/22 11/02/22 Yu Busby, PharmD [address] [place] [phone] Pharmacist Internal Medicine 11/03/22 documented as of this encounter
--- OUTSIDE RECORDS SUMMARY | 2025-03-12 18:00 | XMS_ITS | Encounter Summary ---
Author Organization [employer] Address [address] [facility] 7t [place] [address] Care Team Providers Care Maintenance Leader Name Role Phone Angelique Grace DO Primary Care Provider [phone] Yu Busby PharmD Unavailable [phone] Reason for Visit * Reason Onset Date Comments Accomodation Letter 08/23/2023 Encounter Details Date Type Department Care Team ([facility] st Contact Info) Description 08/23/2023 Telephone [facility] [address] [place] [address] Angelique Grace DO [address] [place] [address] Accomodation Letter Social History Tobacco Use Types [...] Pt was transferred from Him in which typewriter repairer contact HIM for clarification. They informed typewriter repairer pt was advised to leave message with providers team. If any questions please contact pt at [phone]. documented in this encounter Plan of Treatment Upcoming Encounters Date Type Department Care Team (Late st Contact Info) Description 03/28/2025 11:30 AM EST Medication Management [facility] [address] [place], [place] [phone] Yu Busby, PharmD [address] [place] [address] documented as of this encounter Goals Goal [...] documented as of this encounter Care Teams Maintenance Leader Relationship Specialty Start Date End Date Angelique Grace DO [address] [place] [address] [phone] PCP - General Family Medicine 03/14/18 Yu Busby, PharmD [address] [place] [address] [phone] Pharmacist Internal Medicine 11/03/22 documented as of this encounter
--- OUTSIDE RECORDS SUMMARY | 2025-03-12 18:00 | XMS_ITS | Encounter Summary ---
Author Organization [employer] Address [address] [facility] 7t [place] [address] Care Team Providers Care Credit Risk Review Officer Name Role Phone Angelique Grace DO Primary Care Provider [phone] Yu Busby PharmD Unavailable [phone] Reason for Visit * Reason Onset Date Comments Referral 07/19/2023 Encounter Details Date Type Department Care Team ([facility] st Contact Info) Description 07/19/2023 Telephone [facility] [address] [place] [address] Angelique Grace DO [address] [place] [address] Referral Social History Tobacco Use Types Packs/Day [...] for plastic surgery. Please contact pt at [phone]. documented in this encounter Plan of Treatment Upcoming Encounters Date Type Department Care Team (Late st Contact Info) Description 03/28/2025 11:30 AM EST Medication Management [facility] [address] [place] [address] PuiaDarrynYu, PharmD [address] [place] [address] documented as of this encounter Goals Goal [...] as of this encounter Care Teams Credit Risk Review Officer Relationship Specialty Start Date End Date Angelique Grace DO [address] [place] [address] PCP - General Family Medicine 03/14/18 Yu Busby, PharmD [address] [place] [phone] Pharmacist Internal Medicine 11/03/22 documented as of this encounter
--- OUTSIDE RECORDS SUMMARY | 2025-03-12 18:00 | XMS_ITS | Encounter Summary ---
Author Organization [employer] Address [address] [facility] 7t [place] [address] Care Team Providers Care Process Automation Engineer Name Role Phone Angelique Grace DO Primary Care Provider [phone] Yu Busby PharmD Unavailable [phone] Reason for Visit * Reason Comments Med Refill Encounter Details Date Type Department Care Team ([facility] st Contact Info) Description 07/09/2023 Refill [facility] [address] [place] [address] Angelique Grace DO [address] [place] [address] Type 2 diabetes mellitus without complication, with long-term current use of insulin ([facility]) Social History Tobacco Use Types Packs/Day Years [...] Description 03/28/2025 11:30 AM EST Medication Management [facility] [address] [place] [address] [phone] Yu Busby PharmD [address] [place] [address] [phone] documented as of this encounter Goals Goal [...] documented as of this encounter Care Teams Process Automation Engineer Relationship Specialty Start Date End Date Angelique Grace DO [address] [place] [address] [phone] PCP - General Family Medicine 03/14/18 Yu Busby PharmD [address] [place] [address] [phone] Pharmacist Internal Medicine 11/03/22 documented as of this encounter
== END 2025-03-12 14:14 | disposition home or self-care (01) ==
LOC: HO.US 14:13
PROVIDERS: PCP Family Medicine; Visit Provider Family Medicine
DX: M79.661 Pain in right lower leg (principal)
CPT/HCPCS: 93971

== ENCOUNTER → 2025-03-12 14:19 | Outpatient (BNV) | payer MEDICAID, SELFPAY | PROVIDERS: PCP Family Medicine; Visit Provider Radiology Diagnostic Radiology | DX: R22.41 Localized swelling, mass and lump, right lower limb (principal) | CPT/HCPCS: 93971 ==